=== PATIENT | male | born 1945 | race Caucasian/White ===

== ENCOUNTER 2023-04-04 12:10 | Outpatient (OUT) | payer MEDICARE, SELFPAY ==
[2023-04-04 13:52] LABS: Prostate Specific Antigen Dx <0.13 ng/mL (<=4.00)
== END 2023-04-04 12:11 | disposition home or self-care (01) ==
LOC: LAB 12:14
PROVIDERS: PCP Internal Medicine
DX: C61 Malignant neoplasm of prostate (principal)
CPT/HCPCS: 36415; 84153

== ENCOUNTER 2023-04-04 12:19 | Outpatient (OUT) | payer MEDICARE, SELFPAY ==
[2023-04-04 14:04] LABS: Estimated Average Glucose 180 mg/dL; Glycohemoglobin A1C 7.9 % (4.5-6.2)
== END 2023-04-04 12:20 | disposition home or self-care (01) ==
LOC: LAB 12:20
PROVIDERS: PCP Internal Medicine; Visit Provider Internal Medicine
DX: C61 Malignant neoplasm of prostate (principal); E11.65 Type 2 diabetes mellitus with hyperglycemia
CPT/HCPCS: 36415; 83036; 84153

== ENCOUNTER 2023-07-24 09:51 | Outpatient (OUT) | payer MEDICARE, SELFPAY ==
[2023-07-24 11:29] LABS: Estimated Average Glucose 186 mg/dL; Glycohemoglobin A1C 8.1 % (4.5-6.2)
== END 2023-07-24 09:52 | disposition home or self-care (01) ==
LOC: LAB 09:53
PROVIDERS: PCP Internal Medicine; Visit Provider Internal Medicine
DX: E11.65 Type 2 diabetes mellitus with hyperglycemia (principal)
CPT/HCPCS: 36415; 83036

== ENCOUNTER 2023-11-24 12:21 | Outpatient (OUT) | payer MEDICARE, SELFPAY ==
--- OUTSIDE RECORDS SUMMARY | 2023-11-24 12:26 | XMS_ITS | CCD ---
Author Name Unknown Address [address] [place] [address] Organization [facility] Care Team Providers Care Telemetry Technician Name Role Phone PHYSICIAN, DEFAULT Unavailable Unavailable PHYSICIAN, DEFAULT Unavailable NICO Dempsey Unavailable Unavailable Nico Lino DO Primary Care Provider Joseph Vasques Jr. Unavailable Nico Lino DO Primary Care Provider Joseph Vasques Jr. Unavailable NICO LINO Primary Care Physician [phone] LEIA LANDRUM Attending Unavailable Joseph Vasques Attending Unavailable LEIA LANDRUM Attending Unavailable Nico Lino Unavailable MAGO, DR MAS Admitting Unavailable MAGO, DR MAS Attending Unavailable MAGO, DR MAS Primary Care Unavailable MAGO, DR MAS Consulting Unavailable MAGO, DR MAS Admitting Unavailable MAGO, DR MAS Attending Unavailable MAGO, DR MAS Primary Care Unavailable MAGO, DR MAS Consulting Unavailable ADOLFO, DR VICKI Delcid Admitting Unavailable ADOLFO, DR VICKI Delcid Attending Unavailable MAGO, DR MAS Primary Care Unavailable ADOLFO, DR VICKI Delcid Consulting Unavailable MAGO, DR MAS Primary Care Unavailable ANA .CYNTHIA Admitting Unavailable ANA .CYNTHIA Attending Unavailable FAUSTINA .HALLE Consulting Unavailevangelina e ADOLFO, DR VICKI Delcid Admitting Unavailable ADOLFO, DR VICKI Delcid Attending Unavailable MAGO, DR MAS Primary Care Unavailable MAGO, DR MAS Admitting Unavailable MAGO, DR MAS Attending Unavailable MAGO, DR MAS Primary Care Unavailable MAGO, DR MAS Consulting Unavailable ADOLFO, Ronda MUÑOZ Attending Unavailable NIOC LINO Primary Care Unavailable Allergies Allergy Classification Reported Allergen(s) Allergy Type Date of Onset Reaction(s) Facility (1 source) Shellfish Containing Products Drug allergy (disorder) 9 [facility] Repository (2 sources) Seafood; Translations: [Seafood] Drug allergy Itching [facility] (1 source) Shrimp product; Translations: [Shrimp] Propensity to adverse reactions (disorder) [facility] Repository (1 source) No Known Medication Allergies; Translations: [No Known Medication Allergies] Propensity to adverse reactions (disorder) [facility] Repository (1 source) patient allergy list reviewed by nurse or physicia Propensity to adverse reactions 5 Comment:Done own[employer] Other Medications Current Medications Medication Drug Class(es) Dates Sig (Normalized) Sig (Original) calcium carbonate 1500 mg / cholecalciferol 200 unt oral tablet (1 source) Vitamin D Start: 06-16-2021 take 1 tablet by mouth once daily calcium (as carbonate)-vitami n D 600 mg-200 units oral tablet 1 tab(s), Oral, Daily, Prophylaxis Start Date: 06/16/21 Status: Ordered folic acid 1 mg oral tablet (4 sources) take 1 tablet by mouth every twenty-four hours Folic Acid 1 MG 1 tablet Orally Once a day for 90 days Active loperamide hydrochloride 2 mg oral tablet (5 sources) Opioid Agonist Start: 06-16-2021 take 1 tablet by mouth every four hours as needed Immodium A-D 2 mg Tab 2 mg = 1 tab(s), Oral, q4hr, PRN for loose stool Start Date: 06/16/21 Status: Ordered loperamide HCl ( IMODIUM ORAL) Take by mouth. 0 Active Comment on above: Take by mouth. tamsulosin hydrochloride 0.4 mg oral capsule (5 sources) alpha-Adrenergic Tatyana Start: 2 End: 3 take 1 capsule by mouth once daily tamsulosin 0.4 mg Cap 0.4 mg = 1 cap(s), Oral, Daily, # 30 cap(s), Refills(s) 11, Pharmacy: [id number], 173, cm, 11/02/21 11:02:00 EST, Height/Length Dosing, 99.9, kg, 05/03/22 10:56:00 EDT, Weight Dosing Start Date: 06/09/22 Status: Ordered Comment on above: Take 0.4 mg by mouth once daily. vitamin B12 (1 source) Vitamin B12 Start: 3 take 1 tablet under the tongue once daily Cyanocobalamin 1000 MCG 1 tablet under the tongue and allow to dissolve Sublingual Once a day for 90 days Jul, Active Completed/Discontinued Medications Medication Drug Class(es) Dates Sig (Normalized) Sig (Original) aspirin 81 mg delayed release oral tablet (9 sources) Platelet Aggregation Inhibitor, Nonsteroidal Anti-inflammatory Drug Start: 01-22-2021 aspirin, enteric coated (ASPIRIN, ENTERIC COATED) 81 mg EC tablet Take by mouth. 0 01/22/2021 Active Comment on above: Take by mouth. atenolol 50 mg oral tablet (9 sources) beta-Adrenergic Tatyana Start: 01-14-2021 atenolol (TENORMIN) 50 mg tablet Take 50 mg by mouth. 0 01/14/2021 Active Comment on above: Take 50 mg by mouth. atorvastatin 40 mg oral tablet (9 sources) HMG-CoA Reductase Inhibitor Start: 01-14-2021 atorvastatin (LIPITOR) 40 mg tablet Take 40 mg by mouth. 0 01/14/2021 Active Start: 01-14-2021 atorvastatin ( LIPITOR) 80 mg tablet Take 80 mg by mouth. 0 01/14/2021 Active Comment on above: Take 80 mg by mouth. Take 40 mg by mouth. B-12 - up to 1000 mcg (4 sources) Start: 11-29-2022 B-12 - up to 1000 mcg Nov, 1000 mcg Calcium (1 source) Phosphate Binder, Calcium End: 02-17-2022 CALCIUM ORAL Take by mouth. 0 02/17/2022 Discontinued (Discontinued by another Health Care Provider) Comment on above: Take by mouth. cholecalciferol, vitamin D3, (VITAMIN D3 ORAL) (1 source) End: 02-17-2022 cholecalciferol, vitamin D3, (VITAMIN D3 ORAL) Take by mouth. 0 02/17/2022 Discontinued (Discontinued by another Health Care Provider) Comment on above: Take by mouth. glimepiride 2 mg oral tablet (9 sources) Sulfonylurea Start: 03-01-2021 glimepiride (AMARYL) 2 mg tablet Start: 01-14-2021 take 1 tablet by ruth ann once daily glimepiride 1 mg Tab 1 mg = 1 tab(s), Oral, Daily, Refills(s) 0, Blood glucose Start Date: 01/14/21 Status: Ordered Glimepiride 4 MG 1 tablet Orally Once a day, taken 30 minutes prior to bkfst for 90 days Active Glimepiride 2 MG 1 1/2 tab, 30 minutes prior to bkfst Orally Once a day for 30 days Active Leuprolide (3 sources) Gonadotropin Releasing Hormone Receptor Agonist End: 08-17-2023 leuprolide acetate (LUPRON DEPOT INTRAMUSC.) Inject intramuscularly. 0 08/17/2023 Discontinued (Course of therapy completed) leuprolide aceta te (LUPRON DEPOT INTRAMUSC.) Inject intramuscularly. 0 Active Comment on above: Inject intramuscular ly. lisinopril 10 mg oral tablet (9 sources) Angiotensin Converting Enzyme Inhibitor Start: 01-14-2021 lisinopril (ZESTRIL, PRINIVIL) 10 mg tablet Take 10 mg by mouth. 0 01/14/2021 Active Comment on above: Take 10 mg by mouth. metFORMIN hydrochloride 1000 mg oral tablet (7 sources) Biguanide Start: 01-14-2021 End: 08-18-2022 metFORMIN (GLUCOPHAGE) 1,000 mg tablet twice daily. 0 02/06/2021 08/18/2022 Discontinued (Course of therapy completed) take 1 tablet by ruth ann th every twenty-four hours metFORMIN HCl 1000 MG 1 tablet with a meal Orally Once a day Active Comment on above: twice daily. sertraline 100 mg oral tablet (9 sources) Serotonin Reuptake Inhibitor Start: 01-14-2021 sertraline (ZOLOFT) 100 mg tablet Take 100 mg by mouth. 0 01/14/2021 Active Comment on above: Take 100 mg by mouth . Problems Active Problems Problem Classification Problem Date Documented Da te Episodic/Chronic Acute bronchitis (1 source) Acute bronchitis; Translations: [Acute bronchitis due to other specified organisms] Episodic Anxiety disorders (6 sources) Generalized anxiety disorder; Translations: [Generalized anxiety disorder] Chronic Appendicitis and other appendiceal conditions (1 source) Appendicitis 06-16-2021 Episodic Cancer of prostate (17 sources) Malignant tumor of prostate; Translations: [Malignant neoplasm of prostate] Onset: 02-17-2021 Chronic Coronary atherosclerosis and other heart disease (9 sources) Coronary occlusion; Translations: [Coronary arteriosclerosis] Onset: 06-24-2015 06-16-2021 Chronic Deficiency and other anemia (5 sources) 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; Translations: [Folate deficiency anemia, unspecified] Episodic Deficiency and other anemia (5 sources) Anemia; Translations: [Anemia, unspecified] Episodic Deficiency and other anemia (5 sources) Pernicious anemia; Translations: [Vitamin B12 deficiency anemia due to intrinsic factor deficiency] Episodic Deficiency and other anemia (2 sources) Vitamin B12 deficiency anemia due to intrinsic factor deficiency Episodic Deficiency and other anemia (1 source) Folate deficiency anemia, unspecified Episodic Diabetes mellitus with complications (16 sources) Hyperglycemia due to type 2 diabetes mellitus; Translations: [Type 2 diabetes mellitus with hyperglycemia] Onset: 11-29-2022 Chronic Diabetes mellitus without complication (1 source) Diabetes mellitus 06-16-2021 Chronic Disorders of lipid metabolism (13 sources) Pure hypercholesterolemia ; Translations: [Familial hypercholesterolemia ] Onset: 06-24-2015 Chronic E Codes: Cut/pierceb (1 source) Contact with other sharp object(s), not elsewhere classified, initial encounter; Translations: [[facility] OTH SHRP OB NOT ELSW CLASS INI] Onset: 01-09-2023 Episodic Essential hypertension (14 sources) Hypertensive disorder; Translations: [Essential hypertension] Onset: 06-24-2015 06-16-2021 Chronic Genitourinary symptoms and ill-defined conditions (1 source) Urge incontinence of urine 01-14-2021 Chronic Hyperplasia of prostate (8 sources) Benign prostatic hypertrophy with outflow obstruction; Translations: [Benign prostatic hyperplasia with lower urinary tract symptoms] Onset: 06-24-2015 Chronic Immunizations and screening for infectious disease (2 sources) Encounter for immunization; Translations: [Vaccination given] Onset: 01-09-2023 Episodic Open wounds of extremities (4 sources) Unspecified open wound of left middle finger without damage to nail, initial encounter; Translations: [UNS OPN WND LT MF W/O DMG NAIL INIT] Onset: 01-05-2023 Episodic Other aftercare (4 sources) H/O: high risk medication; Translations: [Other assisted (current) drug therapy] Episodic Other aftercare (1 source) Other manager long term care (current) drug therapy; Translations: [OTH SHANK SCOURER CURRENT DRUG THERAPY] Onset: 01-09-2023 Episodic Other aftercare (1 source) retirement (current) use of aspirin; Translations: [SHANK SCOURER CURRENT USE OF ASPIRIN] Onset: 01-09-2023 Episodic Other aftercare (1 source) 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; Translations: [SHANK SCOURER USE ORAL HYPOGLYCEMIC DX] Onset: 01-09-2023 Episodic Other aftercare (1 source) Long-term current use of drug therapy; Translations: [Other manager long term care (current) drug therapy] Episodic Other diseases of kidney and ureters (1 source) Urinary tract obstruction; Translations: [Other obstructive and reflux uropathy] Onset: 11-01-2022 Episodic Other diseases of veins and lymphatics (5 sources) Peripheral venous insufficiency; Translations: [Venous insufficiency (chronic) (peripheral)] Episodic Other diseases of veins and lymphatics (2 sources) Venous insufficiency (chronic) (peripheral) Episodic Other injuries and conditions due to external causes (1 source) History of fall; Translations: [History of falling] Episodic Other nutritional; endocrine; and metabolic disorders (2 sources) Body mass index 30+ - obesity; Translations: [Body mass index 30.0-30.9, adult] Onset: 06-24-2015 Chronic Other nutritional; endocrine; and metabolic disorders (1 source) Obesity; Translations: [Obesity, unspecified] Onset: 07-25-2022 Chronic Other nutritional; endocrine; and metabolic disorders (1 source) Simple obesity ; Translations: [Other obesity due to excess calories] Onset: 06-24-2015 Chronic Other upper respiratory disease (5 sources) Allergic rhinitis due to pollen; Translations: [Allergic rhinitis due to pollen] Chronic Spondylosis; intervertebral disc disorders; other back problems (1 source) Low back pain 06-16-2021 Episodic Substance-related disorders (1 source) Tobacco user; Translations: [Nicotine dependence, cigarettes, in remission] Chronic Unclassified (1 source) Exposure to acute respiratory syndrome coronavirus 2; Translations: [Contact with and (suspected) exposure to COVID-19] Past or Other Problems Problem Classification Problem Date Documented Da te Episodic/Chronic Deficiency and other anemia (1 source) Anemia, unspecified; Translations: [ANEMIA UNSPECIFIED] Onset: 08-02-2022 Episodic Malaise and fatigue (1 source) Malaise and fatigue; Translations: [Other malaise and fatigue] Onset: 06-24-2015 Episodic Other connective tissue disease (1 source) Pain in left foot; Translations: [Pain in left foot] Resolved: 07-19-2021 Episodic Other non-traumatic joint disorders (1 source) Arthralgia of the ankle and/or foot; Translations: [Pain in left ankle and joints of left foot] Resolved: 04-19-2022 Episodic Other screening for suspected conditions (not mental disorders or infectious disease) (1 source) Raised prostate specific antigen; Translations: [Elevated prostate specific antigen [PSA]] Resolved: 02-17-2021 Episodic Residual codes; unclassified (1 source) Requires influenza virus vaccination; Translations: [Need for prophylactic vaccination and inoculation, Influenza] Onset: 06-24-2015 Episodic Screening and history of mental health and substance abuse codes (2 sources) History of tobacco use; Translations: [Personal history of tobacco use, presenting hazards to health] Onset: 08-26-2016 Episodic Unclassified (1 source) Long-term current use of drug therapy; Translations: [Long-term (current) use of other medications] Onset: 09-29-2017 Viral infection (1 source) Herpes zoster with complication; Translations: [Zoster with other complications] Resolved: 04-06-2020 Episodic Results Test Name Value Interpretation Reference Range Facility OV 08-17-2023 CNOV Office Visit ([facility] ) SEGUN JOHNSON ([id number]) 1945 M Date Time Provider Department 08/17/23 10:15 AM Ronda BARTLETT During your visit today, we recorded the following information about you: Temperature Pulse Respiration Blood pressure 96.9 degrees 62/minute 16/minute 156/75 Weight 104.8 kg Angélica Acharya RN 08/17/2023 10:17 AM Signed AUA 7 MARGOT Israel G Phillip, MD 08/17/2023 10:17 AM Signed Radiation Oncology - Follow Up Note PATIENT NAME: Segun Johnson PATIENT DIAGNOSIS: Prostate adenocarcinoma, 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 RADIATION SUMMARY: Pelvis External Beam: 05/05/2021- 06/09/2021 Prostate brachytherapy: 07/07/21 AREA TREATED: Pelvis and Prostate DELIVERED DOSE: Pelvis/ Prostate 45 Gy in 25 fractions, 3 Arcs, IMRT, 10 MV with daily CBCT Prostate Brachytherapy boost: 100 Gy, Pd-103 INTERVAL HISTORY: Doing well denies any new problems. PSA HISTORY: PSA. (no units) Date Value 04/04/2023 <0.13 07/29/2022 <0.13 02/16/2022 0.13 07/31/2021 <0.05 ALLERGIES No Known Allergies leuprolide acetate (LUPRON DEPOT INTRAMUSC.) Inject intramuscularly. loperamide HCl (IMODIUM ORAL) Take by mouth. aspirin, enteric coated (ASPIRIN, ENTERIC COATED) 81 mg EC tablet Take by mouth. atenolol (TENORMIN) 50 mg tablet Take 50 mg by mouth. atorvastatin (LIPITOR) 40 mg tablet Take 40 mg by mouth. glimepiride (AMARYL) 2 mg tablet lisinopril (ZESTRIL, PRINIVIL) 10 mg tablet Take 10 mg by mouth. sertraline (ZOLOFT) 100 mg tablet Take 100 mg by mouth. tamsulosin (FLOMAX) 0.4 mg Take 0.4 mg by mouth once daily. REVIEW OF SYSTEMS: D/N = 4-6/2-3 Hematuria: none Dysuria: Yes Incontinence: occ post void drib Urgency: moderate Catheter use: No Medications to aid urination: n - Total AUA Score: 7 Bowel movement frequency: 1/day Bowel movement quality: normal Blood per rectum: none ADT: Lupron for approximately 12 months currently off PHYSICAL EXAM: BP 156/75 Pulse 62 Temp 36.1 ?C (96.9 ?F) Resp 16 Wt 104.8 kg (231 lb) SpO2 95% BMI 33.62 kg/m? KPS: 100 General appearance: Alert and oriented. No acute distress. Rectal exam def Extremities: No deformities, edema, skin discoloration, clubbing or cyanosis. Lymph Nodes: No cervical lymphadenopathy, No supraclavicular lymphadenopathy, No axillary lymphadenopathy. Skin: Skin color, texture, turgor normal, no suspicious rashes or lesions. ASSESSMENT/PLAN: Prostate adenocarcinoma, initial PSA 11.5, biopsy [place] score 4 + 3 = 7 (grade group 3), clinical stage T2b, N0, M0, stage IIC [T1-T2, N0, M0, PSA <20, GG 3] (AJCC 8th ed.), s/p Pelvic radiation and prostate brachytherapy boost. No evidence of recurrence or posttreatment problems. Plan to see patient back in 6 months with repeat PSA. Signed by: Ronda Bartlett MD cc: Nico Lino ([facility]) [address] [place] [address] Dr. Storey Portions of the above note extracted and edited from previous visit as well as active information included in the EMR. Allergies As of Date: 08/17/2023 (No Known Allergies) Date Reviewed: 08/17/2023 Reviewed by: Angélica Acharya RN - Fully Assessed Reason for Visit: Prostate Cancer [590] Primary Visit Diagnosis:Malignant neoplasm of prostate (HCC) [C61] Order(s):PSA (OUTSIDE) [[id number]] Order #: [id number] PSA/PROSTSPECAG DIAG [SQPSA] Order #: [id number] FUTURE Prescriptions as of 08/17/2023 - loperamide HCl (IMODIUM ORAL) Take by mouth. - aspirin, enteric coated (ASPIRIN, ENTERIC COATED) 81 mg EC tablet Take by mouth. - atenolol (TENORMIN) 50 mg tablet Take 50 mg by mouth. - atorvastatin (LIPITOR) 40 mg tablet Take 40 mg by mouth. - glimepiride (AMARYL) 2 mg tablet - lisinopril (ZESTRIL, PRINIVIL) 10 mg tablet Take 10 mg by mouth. - sertraline (ZOLOFT) 100 mg tablet Take 100 mg by mouth. Problem List As Of Date 08/17/2023 Noted Resolved Prostate cancer (HCC) [C61] 08/17/2022 Visit Notes: >> Angélica Acharya, RN Elsi Aug 17, 2023 10:07 AM Status: Signed AUA 7 Angélica Acharya RN Medications Discontinued During This Encounter Prescriptions - tamsulosin (FLOMAX) 0.4 mg (Discontinued) Take 0.4 mg by mouth once daily. - leuprolide acetate (LUPRON DEPOT INTRAMUSC.) (Discontinued) Inject intramuscularly. Disposition: Return in about 6 months (around 02/15/2024). Follow-up and Disposition History for Encounter Date Provider Department Center 08/17/2023 [id number] BARTLETT JOSE CALDWELLY Encounter Status:Closed by Ronda BARTLETT on 08/17/23 Normal [facility] GLYCOHEMOGLOBIN A1Con 2022 ADA RECOMMENDATION SEE BELOW Normal [facility] Comment on above: Result Comment: ADA RECOMMENDED LIMIT 4.0 - 6.0 ADA THERAPEUTIC TARGET < 7.0 ACTION SUGGESTED > 7.0 Performed By: #### A 1C #### [facility] [address] [place] [address] Dr. Radha Brown Glucose [Mass/Vol] 186 mg/dL Normal [facility] Comment on above: Performed By: #### A 1C #### [facility] [address] [address] [address] Radha Brown HbA1c (Bld) [Mass fraction] 8.1 % Critically high 4.5-6.2 [facility] Comment on above: Performed By: #### A 1C #### [facility] [address] [address] [address] Radha Brown Screenson 11-02-2022 Screens [id number] D:127 Normal [facility] Ambulatory Visit Summaryon 0 11-01-2022 Ambulatory Visit Summary SEGUN JOHNSON :1945 Visit Date:11/01/2022 Ambulatory Visit Instructions Your Diagnosis Prostate cancer BPH with obstruction/lower urinary tract symptoms Other obstructive and reflux uropathy Tests Performed Urnls Dip Stick Auto w/o Microscopy POC [id number] Your Care Team Attending Physician - LEIA LANDRUM PA-C Primary Care Physician - NICO LINO DO This Is Your Medications List tamsulosin (tamsulosin 0.4 mg Cap) Contact prescribing physician if questions or concerns aspirin (aspirin 81 mg Oral EC Tab) atenolol (atenolol 50 mg Tab) atorvastatin (atorvastatin 80 mg Tab) calcium-vitamin D (calcium (as carbonate)-vitamin D 600 mg-200 units oral tablet) glimepiride (glimepiride 1 mg Tab) lisinopril (lisinopril 10 mg Tab) loperamide (Immodium A-D 2 mg Tab) metformin (metformin 1000 mg oral tablet) sertraline (sertraline 100 mg Tab) [Image Removed: STOP]Stop taking these medications leuprolide (Lupron Depot 45 mg/6 months intramuscular injection, extended release) Procedures Performed Brachytherapy implant (07/07/2021), Biopsy of prostate (01/29/2021), Colonoscopy (2017), Angioplasty, Appendectomy. Discharge Vitals Heart Rate (Peripheral) 68 Respiratory Rate 16 Blood Pressure 137/80 Height 175 cm Height 69 in Weight 100 kg Weight 220 lb BMI 32.65 What to do next Scheduled Follow-Up Appointments Monday 11:00 AM EDT With: LEIA LANDRUM PA-C Where: [facility] Patient Educationon 11-01-19 Patient Education Urology Benign Prostatic Hyperplasia Benign prostatic hyperplasia (BPH) is an enlarged prostate gland that is caused by the normal aging process and not by cancer. The prostate is a walnut-sized gland that is involved in the production of semen. It is located in front of the rectum and below the bladder. The bladder stores urine and the urethra is the tube that carries the urine out of the body. The prostate may get bigger as a man gets older. An enlarged prostate can press on the urethra. This can make it harder to pass urine. The build-up of urine in the bladder can cause infection. Back pressure and infection may progress to bladder damage and kidney (renal) failure. What are the causes? This condition is part of a normal aging process. However, not all men develop problems from this condition. If the prostate enlarges away from the urethra, urine flow will not be blocked. If it enlarges toward the urethra and compresses it, there will be problems passing urine. What increases the risk? This condition is more likely to develop in men over the age of 50 years. What are the signs or symptoms? Symptoms of this condition include: ? Getting up often during the night to urinate. ? Needing to urinate frequently during the day. ? Difficulty starting urine flow. ? Decrease in size and strength of your urine stream. ? Leaking (dribbling) after urinating. ? Inability to pass urine. This needs immediate treatment. ? Inability to completely empty your bladder. ? Pain when you pass urine. This is more common if there is also an infection. ? Urinary tract infection (UTI). How is this diagnosed? This condition is diagnosed based on your medical history, a physical exam, and your symptoms. Tests will also be done, such as: ? A post-void bladder scan. This measures any amount of urine that may remain in your bladder after you finish urinating. ? A digital rectal exam. In a rectal exam, your health care provider checks your prostate by putting a lubricated, gloved finger into your rectum to feel the back of your prostate gland. This exam detects the size of your gland and any abnormal lumps or growths. ? An exam of your urine (urinalysis). ? A prostate specific antigen (PSA) screening. This is a blood test used to screen for prostate cancer. ? An ultrasound. This test uses sound waves to electronically produce a picture of your prostate gland. Your health care provider may refer you to a specialist in kidney and prostate diseases (urologist). How is this treated? Once symptoms begin, your health care provider will monitor your condition (active surveillance or watchful waiting). Treatment for this condition will depend on the severity of your condition. Treatment may include: ? Observation and yearly exams. This may be the only treatment needed if your condition and symptoms are mild. ? Medicines to relieve your symptoms, including: ? Medicines to shrink the prostate. ? Medicines to relax the muscle of the prostate. ? Surgery in severe cases. Surgery may include: ? Prostatectomy. In this procedure, the prostate tissue is removed completely through an open incision or with a laparoscope or robotics. ? Transurethral resection of the prostate (TURP). In this procedure, a tool is inserted through the opening at the tip of the penis (urethra). It is used to cut away tissue of the inner core of the prostate. The pieces are removed through the same opening of the penis. This removes the blockage. ? Transurethral incision (TUIP). In this procedure, small cuts are made in the prostate. This lessens the prostate's pressure on the urethra. ? Transurethral microwave thermotherapy (TUMT). This procedure uses microwaves to create heat. The heat destroys and removes a small amount of prostate tissue. ? Transurethral needle ablation (TUNA). This procedure uses radio frequencies to destroy and remove a small amount of prostate tissue. ? Interstitial laser coagulation (ILC). This procedure uses a laser to destroy and remove a small amount of prostate tissue. ? Transurethral electrovaporization (TUVP). This procedure uses electrodes to destroy and remove a small amount of prostate tissue. ? Prostatic urethral lift. This procedure inserts an implant to push the lobes of the prostate away from the urethra. Follow these instructions at home: ? Take dcty-iha-ymezhbb and prescription medicines only as told by your health care provider. ? Monitor your symptoms for any changes. Contact your health care provider with any changes. ? Avoid drinking large amounts of liquid before going to bed or out in public. ? Avoid or reduce how much caffeine or alcohol you drink. ? Give yourself time when you urinate. ? Keep all follow-up visits as told by your health care provider. This is important. Contact a health care provider if: ? You have unexplained back pain. ? Your symptoms do not get better with treatment. ? You d (more content not included)... Normal [facility] Urology Office/Clinic Noteon 11-01-2022 Urology Office/Clinic Note Chief Complaint 6m HPI Staff DLS pt here today for Lupron Injection #4(has been approved through insurance) due to Prostate Cancer. S/P Brachytherapy 06/2021 + EBRT 04/2021-05/2021. Last Lupron 05/03/22. PSA done 07/29/22- <0.[address] Bartlett on 08/25/22. Follows up with him every 1yr with PSA. Additional DX: BPH & Nocturia. *Tamsulosin 0.4mg QD therapy. Occasional dribbling on the way to bathroom if he waits too long. Does not wear a pad. Denies all other urinary complaints at this time. History of Present Illness staff HPI reviewed and agree. Review of Systems PHQ Score Initial Depression Screen Score: 0 no fever, chills, malaise, myalgia. no rash/lesions. no chest pain, palpitations, or SOB. no abdominal pain, nausea, vomiting. no unilateral calf swelling, redness, pain Physical Exam Vitals & Measurements HR: 68(Peripheral) RR: 16 BP: 137/80 HT: 69 in HT: 175 cm WT: 100 kg WT: 220 lb BMI: 32.65 General: nontoxic, NAD Mouth: moist mucosa Lungs: normal respiratory effort Cardio: regular rate, good distal perfusion Abdomen: nondistended, no suprapubic distention or tenderness, no CVA tenderness Neurologic: Grossly normal Skin: No rashes or suspicious lesions Assessment/Plan 1. Prostate cancer (C61: Malignant neoplasm of prostate) initial PSA 11.5, G6(3+3)2x, G7(3+4)x3, G7(4+3) = Grade Group 3, clinical stage T2b N0 M0 S/P Brachytherapy 06/2021 + EBRT 04/2021-05/2021. PSA 07/29/22- <0.13 02/16/22 - 0.13 07/31/21- <0.05 Had extensive discussion w pt regarding NCCN guidelines regarding radiation + ADT. As his prostate cancer is intermediate Unfavorable Intermediate only 4-6mos ADT recommended. Pt has already had 18mos tx. Discussed pros/cons of stopping ADT at this time. Pt amenable to dc ADT. Will not receive Lupron injection today. Pt will repeat PSA in January/February (this will be 6 mos from his last draw w Dr Bartlett) will call him w results. He will then see Dr Bartlett in Aug and see our office again next summer so that he's on a 6mo alternating schedule w us and Dr Bartlett. pt pleased w this plan. 2. BPH with obstruction/lower urinary tract symptoms (N40.1: Benign prostatic hyperplasia with lower urinary tract symptoms) IPSS(8) QoL(1) UA today is clear/neg for any blood or infections. will continue Flomax 0.4mg qd therapy since this is working well for him. Overall pt is voiding well, minimal leakage does not have to wear depends leakage only happens when he holds his urine too long but overall pt is doing well. All questions and concerns were discussed. Pt acknowledge and understands. Pt will call our office with any changes in urinary symptoms. Other obstructive and reflux uropathy (N13.8: Other obstructive and reflux uropathy) Follow-up With When Contact Information DIALLO SHEEHAN, LEIA Ortega, URL In 18 months [address] [facility] [place] [address] Additional Instructions: PSA Patient Education Benign Prostatic Hyperplasia I, Brenda Byrd, personally scribed for Leia Landrum PA-C on 11/01/2022 12:17:23. . Documentation recorded by the scribjg Byrd accurately reflects the services(s) I performed and decisions made by me. Authenticated by Leia Landrum PA-C on 11/01/2022 12:38:00. Problem List/Past Medical History Ongoing BPH with obstruction/lower urinary tract symptoms Prostate cancer Urge incontinence Historical No qualifying data Procedure/Surgical History Brachytherapy implant (07/07/2021), Biopsy of prostate (01/29/2021), Colonoscopy (2018), Angioplasty, Appendectomy. Medications aspirin 81 mg Oral EC Tab, 81 mg= 1 tab(s), Oral, Daily atenolol 50 mg Tab, 50 mg= 1 tab(s), Oral, Daily atorvastatin 80 mg Tab, 80 mg= 1 tab(s), Oral, Daily calcium (as carbonate)-vitamin D 600 mg-200 units oral tablet, 1 tab(s), Oral, Daily glimepiride 1 mg Tab, 1 mg= 1 tab(s), Oral, Daily Immodium A-D 2 mg Tab, 2 mg= 1 tab(s), Oral, q4hr, PRN lisinopril 10 mg Tab, 10 mg= 1 tab(s), Oral, Daily Lupron Depot 45 mg/6 months intramuscular injection, extended release, 45 mg, IntraMuscular, q6mo metformin 1000 mg oral tablet, 1000 mg= 1 tab(s), Oral, BID sertraline 100 mg Tab, 100 mg= 1 tab(s), Oral, Daily tamsulosin 0.4 mg Cap, 0.4 mg= 1 cap(s), Oral, Daily, 11 refills Allergies Seafood (Itching) Social History Alcohol Current, 1-2 times per year, 06/16/2021 Substance Abuse - Denies Substance Abuse, 06/16/2021 Tobacco - Denies Tobacco Use, 06/16/2021 Former smoker, quit more than 30 days ago Tobacco Use:. Cigarettes, 11/01/2022 Family History Heart disease: Father. Immunizations Vaccine Date Status influenza virus vaccine, inactivated 07/25/2022 Recorded SARS-CoV-2 (COVID-19) [id number] 07/23/2022 Recorded SARSCoV2 mRNA(walcloygt-kbvn-kfy ros) vac 05/05/2022 Recorded influenza virus vaccine, inactivated 06/10/2021 Recorded SARS-CoV-2 (COVID-19) [id number] (more content not included)... Normal [facility] Comment on above: Result Comment: Elec tronically Signed By: LEIA LANDRUM PA-C\.br\Date and Time Signed: 11/01/22 12:38 EST\.br\Electronically Co-Signed By: Brenda Byrd\.br\Date and Time Co-Signed: 11/01/22 12:17 EST Consultation Noteon 08-28-20 22 Consultation Note [id number] D:127 Normal [facility] CBC AUTO DIFFon 07-29-2022 BASO # 0.1 103/ul Normal 0.0-0.1 [facility] Comment on above: Performed By: #### C BC #### [facility] [address] [address] [address] Radha Brown Basophils/100 WBC (Bld) 0.9 % Normal 0.2-2.[address] [facility] Comment on above: Performed By: #### C BC #### [facility] [address] [place] [address] Dr. Radha Brown EO # 0.5 103/ul Normal 0.0-0.7 [facility] Comment on above: Performed By: #### C BC #### [facility] [address] [place] [address] Dr. Radha Brown Eosinophils/100 WBC (Bld) 5.5 % Normal 0.9-7.0 [facility] Comment on above: Performed By: #### C BC #### [facility] [address] [place] [address] Dr. Radha Brown Erythrocyte distribution width (RBC) [Ratio] 15.0 % Normal 11.0-15.0 [facility] Comment on above: Performed By: #### C BC #### [facility] [address] [place] [address] Dr. Radha Brown Hematocrit (Bld) [Volume fraction] 35.6 % Critically low 42.0-54.0 [facility] Comment on above: Performed By: #### C BC #### [facility] [address] [place] [address] Dr. Radha Brown Hemoglobin (Bld) [Mass/Vol] 11.8 g/dL Critically low 14.0-18.0 [facility] Comment on above: Performed By: #### C BC #### [facility] [address] [place] [address] Dr. Radha Brown IG # 0.05 10e3/ul Critically high 0.00-0.03 [facility] Comment on above: Performed By: #### C BC #### [facility] [address] [place] [address] Dr. Radha Brown IG % 0.5 % Normal 0.0-0.5 [facility] Comment on above: Performed By: #### C BC #### [facility] [address] [place] [address] Dr. Radha Brown LYMPH # 1.8 103/ul Normal 1.2-3.[address] [facility] Comment on above: Performed By: #### C BC #### [facility] [address] [place] [address] Dr. Radha Brown Lymphocytes/100 WBC (Bld) 19.3 % Critically low 20.5-60.0 [facility] Comment on above: Performed By: #### C BC #### [facility] [address] [place] [address] Dr. Radha Brown MANUAL DIFF REQ NO Normal [facility] Comment on above: Performed By: #### C BC #### [facility] [address] [place] [address] Dr. Radha Brown MCH (RBC) [Entitic mass] 29.2 pg Normal 25.9-34.0 [facility] Comment on above: Performed By: #### C BC #### [facility] [address] [place] [address] Dr. Radha Brown MCHC (RBC) [Mass/Vol] 33.1 g/dL Normal 29.9-35.[address] [facility] Comment on above: Performed By: #### C BC #### [facility] [address] [place] [address] Dr. Radha Brown MCV (RBC) [Entitic vol] 88.1 fL Normal 80.0-94.0 [facility] Comment on above: Performed By: #### C BC #### [facility] [address] [place] [address] Dr. Radha Brown MONO # 0.6 103/ul Normal 0.3-0.8 [facility] Comment on above: Performed By: #### C BC #### [facility] [address] [place] [address] Dr. Radha Brown Monocytes/100 WBC (Bld) 6.4 % Normal 1.7-12.0 [facility] Comment on above: Performed By: #### C BC #### [facility] [address] [place] [address] Dr. Radha Brown NEUT # 6.4 103/ul Normal 1.4-6.[address] [facility] Comment on above: Performed By: #### C BC #### [facility] [address] [place] [address] Dr. Radha Brown Neutrophils/100 WBC (Bld) 67.4 % Normal 43.0-75.0 [facility] Comment on above: Performed By: #### C BC #### [facility] [address] [address] [address] Radha Brown Platelet mean volume (Bld) [Entitic vol] 9.2 fL Critically low 9.5-13.5 [facility] Comment on above: Performed By: #### C BC #### [facility] [address] [place] [address] Dr. Radha Brown PLT 232 103/ul Normal 150-450 [facility] Comment on above: Performed By: #### C BC #### [facility] [address] [address] [address] Radha Brown RBC 4.04 106/ul Critically low 4.70-6.10 [facility] Comment on above: Performed By: #### C BC #### [facility] [address] [address] [address] Radha Brown WBC 9.5 103/ul Normal 4.0-11.0 [facility] Comment on above: Performed By: #### C BC #### [facility] [address] [place] [address] Dr. Radha Brown FERRITINon 07-29-2022 Ferritin [Mass/Vol] 164.0 ng/mL Normal 26.0-388.0 [facility] Comment on above: Performed By: #### P SAD, FOL, FERR, FETIBC #### [facility] [address] [place] [address] Dr. Radha Brown FOLATEon 07-29-2022 FOLATE 7.60 ng/mL Critically low 8.60-58.90 [facility] Comment on above: Performed By: #### P SAD, FOL, FERR, FETIBC #### [facility] [address] [place] [address] Dr. Radha Brown GLYCOHEMOGLOBIN A1Con 2021 ADA RECOMMENDATION SEE BELOW Normal [facility] Comment on above: Result Comment: ADA RECOMMENDED LIMIT 4.0 - 6.0 ADA THERAPEUTIC TARGET < 7.0 ACTION SUGGESTED > 7.0 Performed By: #### A 1C #### [facility] [address] [place] [address] Dr. Radha Brown Glucose [Mass/Vol] 134 mg/dL Normal [facility] Comment on above: Performed By: #### A 1C #### [facility] [address] [address] [address] Radha Brown HbA1c (Bld) [Mass fraction] 6.3 % Critically high 4.5-6.2 [facility] Comment on above: Performed By: #### A 1C #### [facility] [address] [address] [address] Radha Brown IRON AND TIBCon 07-29-2022 % SATURATION 22.1 % Normal [facility] Comment on above: Performed By: #### P SAD, FOL, FERR, FETIBC #### [facility] [address] [address] [address] Radha Brown Iron [Mass/Vol] 78.0 ug/dL Normal 65.0-175.0 [facility] Comment on above: Performed By: #### P SAD, FOL, FERR, FETIBC #### [facility] [address] [address] [address] Radha Brown TIBC DIRECT 353.0 ug/dL Normal 250.0-450.0 [facility] Comment on above: Performed By: #### P SAD, FOL, FERR, FETIBC #### [facility] [address] [address] [address] Radha Brown LIPID PROFILEon 07-29-2022 CHOL-HDL RATIO NORM SEE BELOW Normal [facility] Comment on above: Result Comment: 3.3 - 4.4 LOW RISK 4.4 - 7.1 AVERAGE RISK 7.1 - 11.0 MODERATE RISK >11.0 HIGH RISK Performed By: #### P SAD, FOL, FERR, FETIBC #### [facility] [address] [address] [address] Radha Brown Cholesterol [Mass/Vol] 137 mg/dL Normal <=200 [facility] Comment on above: Performed By: #### P SAD, FOL, FERR, FETIBC #### [facility] [address] [address] [address] Radha Brown Cholesterol in HDL [Mass/Vol] 37 mg/dL Critically low 40-60 [facility] Comment on above: Performed By: #### P SAD, FOL, FERR, FETIBC #### [facility] [address] [address] [address] Radha Brown Cholesterol in LDL [Mass/Vol] 67.0 mg/dL Normal [facility] Comment on above: Performed By: #### P SAD, FOL, FERR, FETIBC #### [facility] [address] [address] [address] Radha Brown Cholesterol.total/Ch olesterol in HDL [Mass ratio] 3.7 {ratio} Normal [facility] Comment on above: Performed By: #### P SAD, FOL, FERR, FETIBC #### [facility] [address] [place] [address] Dr. Radha Brown HDL NORMAL > or = 60 mg/dl - LO W CARDIOVASCULAR RISK <40 mg/dl - HIGH CARDIOVASCULAR RISK Normal [facility] Comment on above: Performed By: #### P SAD, FOL, FERR, FETIBC #### [facility] [address] [address] [address] Radha Brown LDL CALC NORMAL SEE BELOW Normal [facility] Comment on above: Result Comment: <100 mg/dl OPTIMAL 100 - 129 mg/dl NEAR OR ABOVE OPTIMAL 130 - 159 mg/dl BORDERLINE HIGH 160 - 189 mg/dl HIGH >190 mg/dl VERY HIGH Performed By: #### P SAD, FOL, FERR, FETIBC #### [facility] [address] [address] [address] Radha Brown Triglyceride [Mass/Vol] 165 mg/dL Critically high <=[address] [facility] Comment on above: Performed By: #### P SAD, FOL, FERR, FETIBC #### [facility] [address] [place] [address] Dr. Radha Brown VLDL CALC 33.0 mg/dL Normal [facility] Comment on above: Performed By: #### P SAD, FOL, FERR, FETIBC #### [facility] [address] [address] [address] Radha Brown MICROALBUMIN, RAND URon 11-1 1-2022 mALB <1.3 Normal <=30.0 [facility] Comment on above: Performed By: #### M ALBR #### [facility] [address] [address] [address] Radha Brown PROF CHEM 8 (BAS METB)on Anion gap [Moles/Vol] 9.1 mmol/L Normal [facility] Comment on above: Performed By: #### P SAD, FOL, FERR, FETIBC #### [facility] [address] [address] [address] Radha Brown Calcium [Mass/Vol] 8.6 mg/dL Normal 8.5-10.[address] [facility] Comment on above: Performed By: #### P SAD, FOL, FERR, FETIBC #### [facility] [address] [place] [address] Dr. Radha Brown Chloride [Moles/Vol] 106 mmol/L Normal 98-107 [facility] Comment on above: Performed By: #### P SAD, FOL, FERR, FETIBC #### [facility] [address] [address] [address] Radha Brown CO2 [Moles/Vol] 27.1 mmol/L Normal 21.0-32.0 [facility] Comment on above: Performed By: #### P SAD, FOL, FERR, FETIBC #### [facility] [address] [address] [address] Radha Brown Creatinine [Mass/Vol] 1.19 mg/dL Normal 0.70-1.30 [facility] Comment on above: Performed By: #### P SAD, FOL, FERR, FETIBC #### [facility] [address] [place] [address] Dr. Radha Brown EGFR-AF ICELANDIC >60 Normal >=60 [facility] Comment on above: Performed By: #### P SAD, FOL, FERR, FETIBC #### [facility] [address] [address] [address] Radha Brown EGFR-NON AF ICELANDIC 59 mL/min/1.73m2 Critically low >=60 [facility] Comment on above: Performed By: #### P SAD, FOL, FERR, FETIBC #### [facility] [address] [address] [address] Radha Brown Glucose [Mass/Vol] 137 mg/dL Critically high 74-106 [facility] Comment on above: Performed By: #### P SAD, FOL, FERR, FETIBC #### [facility] [address] [address] [address] Radha Brown Potassium [Moles/Vol] 4.2 mmol/L Normal 3.5-5.1 [facility] Comment on above: Performed By: #### P SAD, FOL, FERR, FETIBC #### [facility] [address] [address] [address] Radha Brown Sodium [Moles/Vol] 138 mmol/L Normal 136-145 [facility] Comment on above: Performed By: #### P SAD, FOL, FERR, FETIBC #### [facility] [address] [address] [address] Radha Brown Urea nitrogen [Mass/Vol] 22.0 mg/dL Critically high 7.0-18.0 [facility] Comment on above: Performed By: #### P SAD, FOL, FERR, FETIBC #### [facility] [address] [address] [address] Radha Brown Urea nitrogen/Creatinine [Mass ratio] 18.5 mg/mg Normal [facility] Comment on above: Performed By: #### P SAD, FOL, FERR, FETIBC #### [facility] [address] [address] [address] Radha Brown Ambulatory Visit Summaryon 0 05-03-2022 Ambulatory Visit Summary ALEXSEGUN :1945 Visit Date:05/03/2022 Ambulatory Visit Instructions Your Diagnosis Prostate cancer BPH with obstruction/lower urinary tract symptoms Nocturia Tests Performed Urnls Dip Stick Auto w/o Microscopy POC [id number] Your Care Team Attending Physician - Layo Bae MD, Joseph Henry Primary Care Physician - NICO LINO DO This Is Your Medications List bicalutamide (Casodex 50 mg Tab) leuprolide (Lupron Depot 45 mg/6 months intramuscular injection, extended release) tamsulosin (tamsulosin 0.4 mg Cap) Contact prescribing physician if questions or concerns aspirin (aspirin 81 mg Oral EC Tab) atenolol (atenolol 50 mg Tab) atorvastatin (atorvastatin 80 mg Tab) calcium-vitamin D (calcium (as carbonate)-vitamin D 600 mg-200 units oral tablet) glimepiride (glimepiride 1 mg Tab) lisinopril (lisinopril 10 mg Tab) loperamide (Immodium A-D 2 mg Tab) metformin (metformin 1000 mg oral tablet) sertraline (sertraline 100 mg Tab) Procedures Performed Brachytherapy implant (07/07/2021), Biopsy of prostate (01/29/2021), Colonoscopy (2017), Angioplasty, Appendectomy. Discharge Vitals Heart Rate (Peripheral) 68 Blood Pressure 124/80 Weight 99.9 kg Weight 99.9 kg What to do next Scheduled Follow-Up Appointments Monday 10:15 AM EST With: Joseph Vasques Jr., MD Where: [facility] Patient Educationon 05-03-20 Patient Education Nutrition Calorie Counting for Weight Loss Calories are units of energy. Your body needs a certain amount of calories from food to keep you going throughout the day. When you eat more calories than your body needs, your body stores the extra calories as fat. When you eat fewer calories than your body needs, your body amaya fat to get the energy it needs. Calorie counting means keeping track of how many calories you eat and drink each day. Calorie counting can be helpful if you need to lose weight. If you make sure to eat fewer calories than your body needs, you should lose weight. Ask your health care provider what a healthy weight is for you. For calorie counting to work, you will need to eat the right number of calories in a day in order to lose a healthy amount of weight per week. A dietitian can help you determine how many calories you need in a day and will give you suggestions on how to reach your calorie goal. ? A healthy amount of weight to lose per week is usually 1?2 lb (0.5?0.9 kg). This usually means that your daily calorie intake should be reduced by 500?750 calories. ? Eating 1,200 ? 1,500 calories per day can help most women lose weight. ? Eating 1,500 ? 1,800 calories per day can help most men lose weight. What is my plan? My goal is to have calories per day. If I have this many calories per day, I should lose around pounds per week. What do I need to know about calorie counting? In order to meet your daily calorie goal, you will need to: ? Find out how many calories are in each food you would like to eat. Try to do this before you eat. ? Decide how much of the food you plan to eat. ? Write down what you ate and how many calories it had. Doing this is called keeping a food log. To successfully lose weight, it is important to balance calorie counting with a healthy lifestyle that includes regular activity. Aim for 150 minutes of moderate exercise (such as walking) or 75 minutes of vigorous exercise (such as running) each week. Where do I find calorie information? The number of calories in a food can be found on a Nutrition Facts label. If a food does not have a Nutrition Facts label, try to look up the calories online or ask your dietitian for help. Remember that calories are listed per serving. If you choose to have more than one serving of a food, you will have to multiply the calories per serving by the amount of servings you plan to eat. For example, the label on a package of bread might say that a serving size is 1 slice and that there are 90 calories in a serving. If you eat 1 slice, you will have eaten 90 calories. If you eat 2 slices, you will have eaten 180 calories. How do I keep a food log? Immediately after each meal, record the following information in your food log: ? What you ate. Don't forget to include toppings, sauces, and other extras on the food. ? How much you ate. This can be measured in cups, ounces, or number of items. ? How many calories each food and drink had. ? The total number of calories in the meal. Keep your food log near you, such as in a small notebook in your pocket, or use a mobile faizan or website. Some programs will calculate calories for you and show you how many calories you have left for the day to meet your goal. What are some calorie counting tips? ? Use your calories on foods and drinks that will fill you up and not leave you hungry: ? Some examples of foods that fill you up are nuts and nut butters, vegetables, lean proteins, and high-fiber foods like whole grains. High-fiber foods are foods with more than 5 g fiber per serving. ? Drinks such as sodas, specialty coffee drinks, alcohol, and juices have a lot of calories, yet do not fill you up. ? Eat nutritious foods and avoid empty calories. Empty calories are calories you get from foods or beverages that do not have many vitamins or protein, such as candy, sweets, and soda. It is better to have a nutritious high-calorie food (such as an avocado) than a food with few nutrients (such as a bag of chips). ? Know how many calories are in the foods you eat most often. This will help you calculate calorie counts faster. ? Pay attention to calories in drinks. Low-calorie drinks include water and unsweetened drinks. ? Pay attention to nutrition labels for low fat or fat free foods. These foods sometimes have the same amount of calories or more calories than the full fat versions. They also often have added sugar, starch, or salt, to make up for flavor that was removed with the fat. ? Find a way of tracking calories that works for you. Get creative. Try different apps or programs if writing down calories does not work for you. What are some portion control tips? ? Know how many calories are in a serving. This will help you know how many servings of a certain food you can have. ? Use a measuring cup to measure serving sizes. You could (more content not included)... Normal [facility] Urology Office/Clinic Noteon 05-03-2022 Urology Office/Clinic Note Chief Complaint Patient in office for f/u to PSA w/Lupron injection Patient is 76-year-old male with Scandinavia score 4+3 equal 7 stage T2-3 N0 M0 status post pelvic radiation with brachytherapy boost on 07/07/2021. He is here today for Lupron instillation. HPI Staff Patient in office for 6 month f/u. Previous PSA was done on 07/31/21 w/a result of 0.05. Most recent PSA was done on 02/16/22 w/a result of 0.13. Patient is S/P TRUS w/Bx done one 01/28/21. Patient in office to obtain Lupron injection today. Patient states he is doing well, denies any urinary issues or concerns at this time. Dysuria: denies Incomplete bladder emptying: denies Hematuria: denies Frequency: denies Urgency: denies Nocturia: 3-4 x a night Stream: steady Leaking: denies Post void dripping: denies Wearing pads/ Depends: denies Urge incontinence: denies Stress incontinence: denies Incontinence without Sensory Awareness: denies Abdominal pain: denies Flank pain: denies Sexual complaints: _ History of Present Illness Tests Reviewed: Reviewed UA, and PSA. I have reviewed and verified the staff HPI to be accurate for this encounter. I have reviewed the previous health record information and history for this patient from Dr. Vasques There have been no associated fever, chills, flank pain, or blood in the urine. Denies any urinary infections since last encounter. Review of Systems ROS - Provider Constitutional: denies weight loss, denies hot flashes. Eyes: mild eye problems. Wears Glasses Gastrointestinal: denies nausea, denies vomiting. Cardiovascular: denies chest pain or angina. Integumentary: no dryness Musculoskeletal: denies musculoskeletal symptoms. ENMT: denies otolaryngeal symptoms. Respiratory: no shortness of breath. Heme/Lymph: denies easy bleeding tendency, denies easy bruising tendency. Psychiatric: no confusion, no anxiety. Genitourinary: denies dysuria, denies hematuria, denies discharge, denies urinary frequency, denies urinary hesitancy, moderate nocturia, denies incontinence, denies genital sores, denies decreased libido, and denies erectile dysfunction. Physical Exam Vitals & Measurements HR: 68(Peripheral) BP: 124/80 WT: 99.9 kg WT: 99.9 kg General Appearance: alert, no distress, well nourished, well developed male Flank Pain: none. Bladder: nonpalpable. Assessment/Plan Lupron instillation today was uneventful. Patient seems to be doing quite well with androgen ablation therapy. He continues to follow with radiation therapy. Most recent PSA we have for review is from 02/16/2022 and that result was 0.13 ng/mL. The plan is to continue with androgen ablation therapy and continue follow-up with radiation oncology. I next scheduled visit with the patient will be in 6 months with his next Lupron instillation. He has been instructed to contact the office if he has any change in his voiding pattern or if he has any other questions. 1. Prostate cancer (C61: Malignant neoplasm of prostate) Previous PSA was done on 07/31/21 w/a result of 0.05. Most recent PSA was done on 02/16/22 w/a result of 0.13. Patient is S/P TRUS w/Bx done one 01/28/21. Patient in office to obtain Lupron injection today in Rt Glute. Casodex 50mg qd therapy. Pt will continue medication. Will f/u in 6 months with PSA/Lupron Ordered: leuprolide, 45 mg, IntraMuscular, Once, Stop date 05/03/22 11:29:00 EDT, Routine, Start date 05/03/22 11:29:00 EDT, 05/03/22 11:29:00 EDT PSA Total Urnls Dip Stick Auto w/o Microscopy POC 57696 2. BPH with obstruction/lower urinary tract symptoms (N40.1: Benign prostatic hyperplasia with lower urinary tract symptoms) Good stream, Tamsulosin 0.4mg qd therapy. Patient to continue medication. Ordered: PSA Total Urnls Dip Stick Auto w/o Microscopy POC 71144 3. Nocturia (R35.1: Nocturia) Moderate 3 times per night Ordered: PSA Total I have reviewed the previous health history and record for this patient with Dr. Reynolds. Will f/u in 6 months with PSA/Lupron Follow-up With When Contact Information Layo Bae MD, Joseph Henry, URO In 6 months [facility] [address], [place] [address]- Additional Instructions: f/u in 6 months with PSA and Lupron Patient Education Calorie Counting for Weight Loss Prostate Cancer IRylie, personally scribed for Dr. Vasques on 05/03/2022 11:28:58. . Documentation recorded by the scribe, Shelly Garcia, accurately reflects the services(s) I performed and decisions made by me. Authenticated by Dr. Vasques on 05/03/2022 11:37:06. Problem List/Past Medical History Ongoing BPH with obstruction/lower urinary tract symptoms Prostate cancer Urge incontinence Historical No qualifying data Procedure/Surgical History Brachytherapy implant (07/07/2021), Biopsy of prostate (01/29/2021), Colonoscopy (2017), Angioplasty, Appendectomy. Medications aspirin 81 mg Oral EC T (more content not included)... Normal [facility] Comment on above: Result Comment: Elec tronically Signed By: Layo Bae MD, Joseph Henry\.br\Date and Time Signed: 05/03/22 11:37 EDT\.br\Electronically Co-Signed By: Rylie Garcia\.br\Date and Time Co-Signed: 05/03/22 11:29 EDT Consultation Noteon 02-26-20 Consultation Note [id number] D:127 Normal [facility] GLYCOHEMOGLOBIN A1Con 2021 ADA RECOMMENDATION SEE BELOW Normal [facility] Comment on above: Result Comment: ADA RECOMMENDED LIMIT 4.0 - 6.0 ADA THERAPEUTIC TARGET < 7.0 ACTION SUGGESTED > 7.0 Performed By: #### A 1C #### [facility] [address] [address] [address] Radha Brown Glucose [Mass/Vol] 154 mg/dL Normal [facility] Comment on above: Performed By: #### A 1C #### [facility] [address] [place], [place] [address] Dr. Radha Brown HbA1c (Bld) [Mass fraction] 7.0 % Critically high 4.5-6.2 [facility] Comment on above: Performed By: #### A 1C #### [facility] [address] [place], [place] [address] Dr. Radha Brown Vital Signs Date Time Vital Sign Value Performing Clinician Facility 11-30-2023 10:03-0500 Body temperature 96.91 [degF] ANATOLY Bartlett MD Work Phone: [facility] 08-17-2023 10:03-0500 Body weight 104.78 kg ANATOLY Bartlett MD Work Phone: [facility] 08-17-2023 10:03-0500 Diastolic blood pressure 75 mm[Hg] ANATOLY Bartlett MD Work Phone: [facility] 08-17-2023 10:03-0500 Heart rate 62 /min ANATOLY Bartlett MD Work Phone: [facility] 08-17-2023 10:03-0500 Respiratory rate 16 /min ANATOLY Bartlett MD Work Phone: [facility] 08-17-2023 10:03-0500 SaO2% (BldA) [Mass fraction] 95 % ANATOLY Bartlett MD Work Phone: [facility] 08-17-2023 10:03-0500 Systolic blood pressure 156 mm[Hg] ANATOLY Bartlett MD Work Phone: [facility] 07-26-2023 11:00-0500 Body height 175.26 cm Nico Ball Other [facility] Other 07-26-2023 11:00-0500 Body mass index (BMI) [Ratio] 33.37 kg/m2 Nico Ball Other [facility] Other 07-26-2023 11:00-0500 Body weight 102.51 kg Nico Ball Other [facility] Other 07-26-2023 11:00-0500 Diastolic blood pressure 83 mm[Hg] Nico Ball Other [facility] Other 07-26-2023 11:00-0500 Respiratory rate 12 /min Nico Ball Other [facility] Other 07-26-2023 11:00-0500 Systolic blood pressure 133 mm[Hg] Nico Ball Other [facility] Other 11-29-2022 14:30-0400 Body height 175.26 cm Nico Ball Other [facility] Other 11-29-2022 14:30-0400 Body mass index (BMI) [Ratio] 34.58 kg/m2 Nico Ball Other [facility] Other 11-29-2022 14:30-0400 Body weight 106.23 kg Nico Ball Other [facility] Other 11-29-2022 14:30-0400 Diastolic blood pressure 71 mm[Hg] Nico Ball Other [facility] Other 11-29-2022 14:30-0400 Respiratory rate 12 /min Nico Ball Other [facility] Other 11-29-2022 14:30-0400 Systolic blood pressure 118 mm[Hg] Nico Ball Other [facility] Other 11-01-2022 11:22-0500 Blood Pressure Location LEIA DIALLO [facility] 11-01-2022 11:22-0500 Diastolic blood pressure 80 mm[Hg] LEIA DIALLO [facility] 11-01-2022 11:22-0500 Heart rate 68 /min LEIA DIALLO [facility] 11-01-2022 11:22-0500 Respiratory rate 16 /min LEIA DIALLO [facility] 11-01-2022 11:22-0500 Systolic blood pressure 137 mm[Hg] LEIA LANDRUM [facility] 08-18-2022 10:22-0500 Body temperature 96.21 [degF] ANATOLY Bartlett MD Work Phone: [facility] 08-18-2022 10:22-0500 Body weight 105.23 kg ANATOLY Bartlett MD Work Phone: [facility] 08-18-2022 10:22-0500 Diastolic blood pressure 55 mm[Hg] ANATOLY Bartlett MD Work Phone: [facility] 08-18-2022 10:22-0500 Heart rate 78 /min ANATOLY Bartlett MD Work Phone: [facility] 08-18-2022 10:22-0500 Respiratory rate 18 /min ANATOLY Bartlett MD Work Phone: [facility] 08-18-2022 10:22-0500 SaO2% (BldA) [Mass fraction] 98 % ANATOLY Bartlett MD Work Phone: [facility] 08-18-2022 10:22-0500 Systolic blood pressure 125 mm[Hg] ANATOLY Bartlett MD Work Phone: [facility] 02-17-2022 09:51-0400 Body temperature 96.1 [degF] ANATOLY Bartlett MD Work Phone: [facility] 02-17-2022 09:51-0400 Body weight 100.7 kg ANATOLY Bartlett MD Work Phone: [facility] 02-17-2022 09:51-0400 Diastolic blood pressure 75 mm[Hg] ANATOLY Bartlett MD Work Phone: [facility] 02-17-2022 09:51-0400 Heart rate 66 /min ANATOLY Bartlett MD Work Phone: [facility] 02-17-2022 09:51-0400 Respiratory rate 16 /min ANATOLY Bartlett MD Work Phone: [facility] 02-17-2022 09:51-0400 SaO2% (BldA) [Mass fraction] 97 % ANATOLY Bartlett MD Work Phone: [facility] 02-17-2022 09:51-0400 Systolic blood pressure 120 mm[Hg] ANATOLY Bartlett MD Work Phone: [facility] Encounters Encounter Date Encounter Type Care Provider Facility Start: 03-05-2024 ambulatory LEIA LANDRUM Facili ty:[facility] [place] Start: 08-17-2023 End: 08-17-2023 ambulatory Ronda BARTLETT Facility:[facility] Start: 08-17-2023 End: 08-17-2023 Patient encounter procedure Ronda Bartlett MD Work Phone: Radiation Oncology Comment on above: Malignant neoplasm o f prostate (HCC) (Primary Dx) Start: 07-26-2023 End: 07-26-2023 ambulatory Nico Lino Other [facility] Other Start: 07-26-2023 Patient encounter procedure Nico Lino [facility] Start: 07-17-2023 End: 07-17-2023 ambulatory Nico Lino Other [facility] Other Start: 07-17-2023 Telephone encounter Nico Bond [facility] Start: 04-04-2023 End: 04-04-2023 ambulatory Nico Lino Other [facility] Other Start: 04-04-2023 Telephone encounter Nico Bond [facility] Start: 01-05-2023 End: 01-05-[address] NICO LINO Facility:[facility] Start: 11-29-2022 End: 11-30-[address] NICO LINO [facility] Other Start: 11-29-2022 Office outpatient vi sit 25 minutes Nico Lino [facility] Start: 11-01-2022 End: 11-02-2022 ambulatory LEIA LANDRUM Facility:[facility] Start: 11-01-2022 End: 11-01-2022 Patient encounter procedure LEIA LANDRUM [facility] Start: 08-18-2022 End: 08-18-2022 ambulatory Irlanda Matthew DIRECTOR OF RESOURCE DEVELOPMENT.ANALYTICS ANALYST Work Phone: Hematology/Oncology Comment on above: Prostate cancer (HCC ) Start: 08-18-2022 End: 08-18-2022 Patient encounter procedure Irlanda Castro DIRECTOR OF RESOURCE DEVELOPMENT.ANALYTICS ANALYST Work Phone: [facility] Comment on above: Prostate cancer (HCC ) (Primary Dx) Start: 07-29-2022 End: 07-30-[address] NICO LINO Facility: Start: 07-25-2022 Adult health examination Nico Lino Other [facility] Other Start: 05-03-2022 End: 05-04-2022 ambulatory Joseph Vasques Facility:[facility] Start: 02-17-2022 End: 02-17-2022 Patient encounter procedure Ronda Bartlett MD Work Phone: Radiation Oncology Comment on above: Prostate cancer (HCC ) (Primary Dx) Start: 02-16-2022 End: 02-17-[address] NICO LINO Facility:[facility] Start: 01-16-[address] VICKI BARTLETT Fac ility:[facility] Start: 07-19-2021 End: 07-19-2021 Pre-procedure evaluation check Nico Lino Other [facility] Other Start: 10-24-2014 End: 10-25-2014 Patient encounter DEFAULT PHYSICIAN Facility:[facility] Procedures Date Procedure Procedure Detail Performing Clinician Start: 04-04-2023 PSA screening [facility] Provi michael Start: 07-29-2022 End: 07-29-2022 PSA screening [facility] Provider Comment on above: Performed By: #### P SAD, FOL, FERR, FETIBC #### [facility] [address] [place] [address] Dr. Radha Brown Start: 02-17-2022 Adult depression scr eening assessment ANATOLY Bartlett MD Work Phone: Start: 02-16-2022 End: 02-16-2022 PSA screening [facility] Provider Comment on above: Performed By: #### P SAD #### [facility] [address] [address] [address] Radha Brown Start: 07-07-2021 Brachytherapy implan t (physical object) LEIA LANDRUM Start: 01-29-2021 Biopsy of prostate REVA LANDRUM Start: 09-18-2017 Colonoscopy LEIA Delcid CHARISSARobi Start: 06-09-2016 General examination of patient Nico Lino Other Start: 06-09-2016 Screening for malign ant neoplasm of colon Nico Lino Other Start: 06-24-2015 Screening for malign ant neoplasm of prostate Nico Lino Other Angioplasty of blood vessel LEIA LANDRUM Appendectomy LEIA LANDRUM Depression screening Jena Lino Other Screening for malign ant neoplasm of prostate Nico Lino Other Plan of Treatment Date Care Activity Detail Author Start: 01-05-2033 Urine microalbumin profile DTaP,Tdap,Td Vaccine (2 - Td or Tdap) [facility] Start: 07-31-2024 Diabetes Screening Diabetes Screenin g [facility] Start: 02-15-2024 End: 05-16-2024 Prostate specific Ag [Mass/volume] in Serum or Plasma PSA/PROSTSPECAG DIAG Lab Routine Malignant neoplasm of prostate (HCC) Expected: 02/15/2024 (Approximate), Expires: 05/16/[address] [facility] Work Phone: Comment on above: Expected: 02/15/2024 (Approximate), Expires: 05/16/2024 Start: 08-18-2023 End: 10-18-2023 Prostate specific Ag [Mass/volume] in Serum or Plasma PSA/PROSTSPECAG DIAG Lab Routine Prostate cancer (HCC) Expected: 08/18/2023, Expires: 10/18/[address] [facility] Work Phone: Comment on above: Expected: 08/18/2023 , Expires: 10/18/2023 Start: 02-17-2023 Adult depression screening assessment DEPRESSION SCREENING [facility] Start: 09-18-2022 Advance Directive Discussion Advance Directive Discussion [facility] Start: 09-18-2022 Depression Assessment Depression Ass essment [facility] Start: 08-19-2022 End: 10-19-2022 Prostate specific Ag [Mass/volume] in Serum or Plasma PSA/PROSTSPECAG DIAG Lab Routine Prostate cancer (HCC) Expected: 08/19/2022 (Approximate), Expires: 10/19/[address] [facility] Work Phone: Comment on above: Expected: 08/19/2022 (Approximate), Expires: 10/19/2022 Start: 09-18-2021 ADVANCE DIRECTIVE DISCUSSION ADVANCE DIRECTIVE DISCUSSION [facility] Start: 09-18-2021 DEPRESSION ASSESSMENT DEPRESSION ASS ESSMENT [facility] Start: 05-03-2021 COVID-19 VACCINE (3 - Booster for Moderna series) COVID-19 VACCINE (3 - Booster for Moderna series) [facility] Start: 10-04-2019 Pneumococcal Vaccine : 65+ (2 - PCV) Pneumococcal Vaccine: 65+ (2 - PCV) [facility] Start: 10-04-2019 PNEUMOCOCCAL: 65+ (2 - PCV) PNEUMOCOCCAL: 65+ (2 - PCV) [facility] Start: 2005 RSV Vaccine (1 - 1-d ose 60+ series) RSV Vaccine (1 - 1-dose 60+ series) [facility] Start: 1995 SHINGRIX VACCINE (1 of 2) SHINGRIX VACCINE (1 of 2) [facility] Start: 1990 DIABETES SCREEN DIABETES SCREEN [facility] Start: 1964 SHINGRIX VACCINE (1 of 2) SHINGRIX VACCINE (1 of 2) [facility] Start: 1964 Urine microalbumin profile DTAP,TDAP,TD (1 - Tdap) [facility] Start: 1963 HEPATITIS C SCREENING HEPATITIS C IA JUA[facility] Immunizations Immunization Date Immunization Notes Care Provider Mak loya 06-14-2023 COVID-19 Vaccine Pfi zer - Documentation Purposes Only Nico Lino Other [facility] Other 06-14-2023 Flu Shot - Documentation Purposes Only Nico Lino Other [facility] Other 01-05-2023 tetanus toxoid, redu doni diphtheria toxoid, and acellular pertussis vaccine, adsorbed Nico Lino Other [facility] Other 07-25-2022 influenza virus vaccine, split virus (incl. purified surface antigen) Nico Lino Other [facility] Other 07-25-2022 influenza virus vaccine, unspecified formulation LEIA DIALLO [facility] 07-23-2022 SARS-CoV-2 (COVID-19 ) [id number] LEIA DIALLO [facility] 05-05-2022 SARS-CoV-2 mRNA (wufulomkkcl-mdou-tltkn se) vaccine LEIA DIALLO [facility] 06-10-2021 influenza virus vaccine, split virus (incl. purified surface antigen) Nico Lino Other [facility] Other 06-10-2021 influenza virus vaccine, unspecified formulation LEIA DIALLO [facility] 06-10-2021 Seasonal trivalent influenza vaccine, adjuvanted, preservative free ANATOLY Bartlett MD Work Phone: [facility] 12-01-2020 COVID-19 vaccine, fu ll dose (MODERNA) ANATOLY Bartlett MD Work Phone: [facility] 11-05-2020 COVID-19 vaccine, fu ll dose (MODERNA) ANATOLY Bartlett MD Work Phone: [facility] 07-09-2020 influenza virus vaccine, split virus (incl. purified surface antigen) Nico Lino Other [facility] Other 06-04-2019 influenza virus vaccine, unspecified formulation LEIA DIALLO [facility] 06-04-2019 Seasonal trivalent influenza vaccine, adjuvanted, preservative free ANATOLY Bartlett MD Work Phone: [facility] 10-04-2018 pneumococcal Conjuga te, unspecified formulation; Translations: [Need for prophylactic vaccination against Streptococcus pneumoniae (pneumococcus)] Nico Lino Other [facility] Other 10-04-2018 pneumococcal polysaccharide vaccine, 23 valent ANATOLY Bartlett MD Work Phone: [facility] 06-24-2015 influenza virus vaccine, split virus (incl. purified surface antigen) Nico Lino Other [facility] Other 06-24-2015 pneumococcal conjuga te vaccine, 13 valent Nico Lino Other [facility] Other Payers Date Payer Category Payer Unknown 2020 Unknown MMO MMO [employer] NAL [id number] 2020-Present [phone] [address] [place] [address] Indemnity [id number] 2011 Medicare MEDICARE MEDICAR E A AND B [id number] 2011-Present [phone] [place] [address] Medicare [id number] 2011 Medicare [id number] 1959 Medicare [id number] 1959 Private Health Insurance [id number] 1959 Self-pay [id number] 1959 Unknown [id number] 1945 Unknown [id number] 1945 Unknown [id number] 1945 Unknown [id number] 727 1945 Unknown [id number] 593 1945 Unknown [id number] 1945 Unknown [id number] 593 1945 Unknown [id number] 593 1945 Unknown [id number] 593 1945 Unknown [id number] 593 Social History Date Type Detail Facility Start: 03-03-2021 End: 08-18-2022 Tobacco smoking status NHIS Ex-smoker [facility] Start: 03-03-1957 End: 03-03-1961 History of tobacco use Current smoker [facility] Start: 03-03-2021 End: 08-17-2023 Cigarettes smoked current (pack per day) - Reported 0.5 [facility] Start: 03-03-2021 End: 08-18-2022 Tobacco use and exposure Smokeless tobacco non-user [facility] Start: 02-17-2022 End: 08-18-2022 Alcohol intake Current drinker of alcohol (finding) [facility] Start: 03-03-2021 History SDOH Alcohol Comment Socially [facility] Start: 1945 Sex Assigned At Not on file [facility] Start: 02-07-2022 End: 08-18-2022 Exposure to SARS-CoV-2 (event) Not sure [facility] Start: 03-03-1957 End: 03-03-1961 History of tobacco use Cigarette Smoker [facility] Start: 08-18-2022 End: 08-17-2023 Sex Assigned At Male [facility] Adult Depression Screening Assessment 0 [facility] Medical Equipment Procedure Code Equipment Code Equipment Origin al Text Equipment Identifier Dates PROSTATIC BRACHYTHERAPY Ronda Bartlett MD 07/07/21 Unknown Other FDA Start: 07-07-2021 Functional Status Date Assessment Result Facility 11-01-2022 Functional Status N/A [facility] Clinical Notes 02-17-2022 to 08-17-2023 Ronda Bartlett MD - 08/17/2023 10:15 AM Angélica Pinto RN - 08/17/2023 10:07 AM EST Note Date & Type Note Facility 08-17-2023 Note HNO ID: [id number] Author: Ronda Bartlett MD Service: ? Author Type: Physician Type: Progress Notes Filed: 08/17/2023 10:17 AM Note Text: Radiation Oncology - Follow Up Note PATIENT NAME: Segun Johnson PATIENT DIAGNOSIS: Prostate adenocarcinoma, initial PSA 11.5, biopsy Scandinavia score 4 + 3 = 7 (grade group 3), clinical stage T2b, N0, M0, stage IIC [T1-T2, N0, M0, PSA <20, GG 3] (AJCC 8th ed.), s/p TRUS Random biopsy. RADIATION SUMMARY: Pelvis External Beam: 05/05/2021- 06/09/2021 Prostate brachytherapy: 07/07/21 AREA TREATED: Pelvis and Prostate DELIVERED DOSE: Pelvis/ Prostate 45 Gy in 25 fractions, 3 Arcs, IMRT, 10 MV with daily CBCT Prostate Brachytherapy boost: 100 Gy, Pd-103 INTERVAL HISTORY: Doing well denies any new problems. PSA HISTORY: PSA. (no units) Date Value 04/04/2023 <0.13 07/29/2022 <0.13 02/16/2022 0.13 07/31/2021 <0.05 ALLERGIES No Known Allergies leuprolide acetate (LUPRON DEPOT INTRAMUSC.) Inject intramuscularly. loperamide HCl (IMODIUM ORAL) Take by mouth. aspirin, enteric coated (ASPIRIN, ENTERIC COATED) 81 mg EC tablet Take by mouth. atenolol (TENORMIN) 50 mg tablet Take 50 mg by mouth. atorvastatin (LIPITOR) 40 mg tablet Take 40 mg by mouth. glimepiride (AMARYL) 2 mg tablet lisinopril (ZESTRIL, PRINIVIL) 10 mg tablet Take 10 mg by mouth. sertraline (ZOLOFT) 100 mg tablet Take 100 mg by mouth. tamsulosin (FLOMAX) 0.4 mg Take 0.4 mg by mouth once daily. REVIEW OF SYSTEMS: D/N = 4-6/2-3 Hematuria: none Dysuria: Yes Incontinence: occ post void drib Urgency: moderate Catheter use: No Medications to aid urination: n - Total AUA Score: 7 Bowel movement frequency: 1/day Bowel movement quality: normal Blood per rectum: none ADT: Lupron for approximately 12 months currently off PHYSICAL EXAM: BP 156/75 Pulse 62 Temp 36.1 ?C (96.9 ?F) Resp 16 Wt 104.8 kg (231 lb) SpO2 95% BMI 33.62 kg/m? KPS: 100 General appearance: Alert and oriented. No acute distress. Rectal exam def Extremities: No deformities, edema, skin discoloration, clubbing or cyanosis. Lymph Nodes: No cervical lymphadenopathy, No supraclavicular lymphadenopathy, No axillary lymphadenopathy. Skin: Skin color, texture, turgor normal, no suspicious rashes or lesions. ASSESSMENT/PLAN: Prostate adenocarcinoma, initial PSA 11.5, biopsy Asaf score 4 + 3 = 7 (grade group 3), clinical stage T2b, N0, M0, stage IIC [T1-T2, N0, M0, PSA <20, GG 3] (AJCC 8th ed.), s/p Pelvic radiation and prostate brachytherapy boost. No evidence of recurrence or posttreatment problems. Plan to see patient back in 6 months with repeat PSA. Signed by: Ronda Bartlett MD cc: Nico Lino ([facility]) [address] [place] [address] Dr. Storey Portions of the above note extracted and edited from previous visit as well as active information included in the EMR. [facility] 08-17-2023 History of Present illness Narrative Radiation Oncology - Follow Up Note PATIENT NAME: Segun Johnson PATIENT DIAGNOSIS: Prostate adenocarcinoma, 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 RADIATION SUMMARY: Pelvis External Beam: 05/05/2021- 06/09/2021 Prostate brachytherapy: 07/07/21 AREA TREATED: Pelvis and Prostate DELIVERED DOSE: Pelvis/ Prostate 45 Gy in 25 fractions, 3 Arcs, IMRT, 10 MV with daily CBCT Prostate Brachytherapy boost: 100 Gy, Pd-103 INTERVAL HISTORY: Doing well denies any new problems. PSA HISTORY: PSA. (no units) Date Value 04/04/2023 <0.13 07/29/2022 <0.13 02/16/2022 0.13 07/31/2021 <0.05 ALLERGIES No Known Allergies leuprolide acetate (LUPRON DEPOT INTRAMUSC.) Inject intramuscularly. loperamide HCl (IMODIUM ORAL) Take by mouth. aspirin, enteric coated (ASPIRIN, ENTERIC COATED) 81 mg EC tablet Take by mouth. atenolol (TENORMIN) 50 mg tablet Take 50 mg by mouth. atorvastatin (LIPITOR) 40 mg tablet Take 40 mg by mouth. glimepiride (AMARYL) 2 mg tablet lisinopril (ZESTRIL, PRINIVIL) 10 mg tablet Take 10 mg by mouth. sertraline (ZOLOFT) 100 mg tablet Take 100 mg by mouth. tamsulosin (FLOMAX) 0.4 mg Take 0.4 mg by mouth once daily. REVIEW OF SYSTEMS: D/N = 4-6/2-3 Hematuria: none Dysuria: Yes Incontinence: occ post void drib Urgency: moderate Catheter use: No Medications to aid urination: n - Total AUA Score: 7 Bowel movement frequency: 1/day Bowel movement quality: normal Blood per rectum: none ADT: Lupron for approximately 12 months currently off PHYSICAL EXAM: BP 156/75 Pulse 62 Temp 36.1 C (96.9 F) Resp 16 Wt 104.8 kg (231 lb) SpO2 95% BMI 33.62 kg/m KPS: 100 General appearance: Alert and oriented. No acute distress. Rectal exam def Extremities: No deformities, edema, skin discoloration, clubbing or cyanosis. Lymph Nodes: No cervical lymphadenopathy, No supraclavicular lymphadenopathy, No axillary lymphadenopathy. Skin: Skin color, texture, turgor normal, no suspicious rashes or lesions. ASSESSMENT/PLAN: Prostate adenocarcinoma, initial PSA 11.5, biopsy Asaf score 4 + 3 = 7 (grade group 3), clinical stage T2b, N0, M0, stage IIC [T1-T2, N0, M0, PSA <20, GG 3] (AJCC 8th ed.), s/p Pelvic radiation and prostate brachytherapy boost. No evidence of recurrence or posttreatment problems. Plan to see patient back in 6 months with repeat PSA. Signed by: Ronda Bartlett MD cc: Nico Lino ([facility]) [address] [place] [address] Dr. Storey Portions of the above note extracted and edited from previous visit as well as active information included in the EMR. documented in this encounter [facility] 08-17-2023 Nurse Note AUA 7 Angélica Acharya RN documented in this encounter [facility] 07-26-2023 Evaluation note Encounter Date Diagnosis Assessment Notes Jul, Medicare annual wellness visit, subsequent (ICD-10 - Z00.00) Personalized health advice was given to the beneficiary including a written plan for screenings discussed and provided. Advanced care planning reviewed and/or information given as requested. Additional counseling was provided here today in regards to, [ ]. The above visit was performed by [ ], under direct supervision of [ ]. Document reviewed and amended by provider signed below. Jul, ASHD (arteriosclerotic heart disease) (ICD-10 - I25.10) This patient is stable without activity related CP, dyspnea or lightheadedness. They are instructed to continue exercise and AHA diet plan. Continue secondary prevention measures. Jul, Type 2 diabetes mellitus with hyperglycemia, without long-term current use of insulin (ICD-10 - E11.65) This patient is following a comprehensive diabetic treatment plan. They are checking their feet daily for calluses and nonhealing ulcers. They are being seen for yearly dilated eye examinations. Goals: SBP less than 130, LDL less than 100, FBS less than 140, A1C less than 7%. They are checking their BS daily, will which are reviewed at the office visit. Continue regular routine monitoring of A1C,] Microalbumin, Dilated eye exam and Foot exam A1C remains elevated, will increase Glimepiride to 4mg Keep Metformin at 1000mg due to GI side effects at a higher dose Jul, Primary hypertension (ICD-10 - I10) This patient is instructed to consume a healthy, low-fat, low-salt diet. They are also encouraged to continue exercise to achieve/maintain a normal BMI. Jul, Pure hypercholesterolemia (ICD-10 - E78.00) Instructed on diet and exercise with continued statin therapy.Discusse d the beneficial effects of lowering cholesterol in reducing the risk for cerebrovascular and cardiovascular disease. Jul, Chronic venous insufficiency (ICD-10 - I87.2) Avoid salt and elevate lower extremities, support stockings, inspect legs and feet daily for blisters and ulcerations. 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 Recheck CBC Jul, Pernicious anemia (ICD-10 - D51.0) Continue supplement, recheck CBC [facility] Other 07-18-2023 Evaluation note* Encounter Date Diagnosis Assessment Notes Treatment Notes Treatment Clinical Notes Mar, Type 2 diabetes mellitus with hyperglycemia, without long-term current use of insulin (ICD-10 - E11.65) [facility] Other 03-14-2023 Evaluation note* Encounter Date Diagnosis Assessment Notes Treatment Notes Treatment Clinical Notes Nov, ASHD (arteriosclerotic heart disease) (ICD-10 - I25.10) This patient is stable without activity related CP, dyspnea or lightheadedness. They are instructed to continue exercise and AHA diet plan. Nov, Type 2 diabetes mellitus with hyperglycemia, without long-term current use of insulin (ICD-10 - E11.65) This patient is following a comprehensive diabetic treatment plan. They are checking their feet daily for calluses and nonhealing ulcers. They are being seen for yearly dilated eye examinations. Goals: SBP less than 130, LDL less than 100, FBS less than 140, AC and A1C less than 7%. They are checking their BS daily, will which are reviewed at the office visit. A1C: due Nov, Primary hypertension (ICD-10 - I10) This patient is instructed to consume a healthy, low-fat, low-salt diet. They are also encouraged to continue exercise to achieve/maintain a normal BMI. Nov, Hyperlipidemia type II (ICD-10 - E78.01) Diet and exercise with continued statin therapy. Nov, Chronic venous insufficiency (ICD-10 - I87.2) Avoid salt and elevate lower extremities, support stockings, inspect legs and feet daily for blisters and ulcerations. Nov, Prostate cancer (ICD-10 - C61) s/p brachytherapy, ext beam radiation and ADT No s/s recurrence, f/u Urology Nov, CATHY (generalized anxiety disorder) (ICD-10 - F41.1) Stable, continue healthy diet, exercise. No change in treatment Nov, Pernicious anemia (ICD-10 - D51.0) B12 monthly [facility] Other 02-14-2023 Hospital Discharge instructions Patient Education 11/01/2022 11:50:19 Benign Prostatic Hyperplasia Benign Prostatic Hyperplasia Benign prostatic hyperplasia (BPH) is an enlarged prostate gland that is caused by the normal agingprocess and not by cancer. The prostate is a walnut-sized gland that is involved in the production of semen. It is located in front of the rectum and below the bladder. The bladder stores urine and the urethra is the tube that carries the urine out of the body. The prostate may get bigger as a man gets older. An enlarged prostate can press on the urethra. This can make it harder to pass urine. The build-up of urine in the bladder can cause infection. Back pressure and infection may progress to bladder damage and kidney (renal) failure. What are the causes? This condition is part of a normal aging process. However, not all men develop problems from this condition. If the prostate enlarges away from the urethra, urine flow will not be blocked. If it enlarges toward the urethra and compresses it, there will be problems passing urine. What increases the risk? This condition is more likely to develop in men over the age of 50 years. What are the signs or symptoms? Symptoms of this condition include: Getting up often during the night to urinate. Needing to urinate frequently during the day. Difficulty starting urine flow. Decrease in size and strength of your urine stream. Leaking (dribbling) after urinating. Inability to pass urine. This needs immediate treatment. Inability to completely empty your bladder. Pain when you pass urine. This is more common if there is also an infection. Urinary tract infection (UTI). How is this diagnosed? This condition is diagnosed based on your medical history, a physical exam, and your symptoms. Tests will also be done, such as: A post-void bladder scan. This measures any amount of urine that may remain in your bladder after you finish urinating. A digital rectal exam. In a rectal exam, your health care provider checks your prostate by putting a lubricated, gloved finger into your rectum to feel the back of your prostate gland. This exam detects the size of your gland and any abnormal lumps or growths. An exam of your urine (urinalysis). A prostate specific antigen (PSA) screening. This is a blood test used to screen for prostate cancer. An ultrasound. This test uses sound waves to electronically produce a picture of your prostate gland. Your health care provider may refer you to a specialist in kidney and prostate diseases (urologist). How is this treated? Once symptoms begin, your health care provider will monitor your condition (active surveillance or watchful waiting). Treatment for this condition will depend on the severity of your condition. Treatment may include: Observation and yearly exams. This may be the only treatment needed if your condition and symptoms are mild. Medicines to relieve your symptoms, including: ?Medicines to shrink the prostate. ?Medicines to relax the muscle of the prostate. Surgery in severe cases. Surgery may include: ?Prostatectomy. In this procedure, the prostate tissue is removed completely through an open incision or with a laparoscope or robotics. ?Transurethral resection of the prostate (TURP). In this procedure, a tool is inserted through the opening at the tip of the penis (urethra). It is used to cut away tissue of the inner core of the prostate. The pieces are removed through the same opening of the penis. This removes the blockage. ?Transurethral incision (TUIP). In this procedure, small cuts are made in the prostate. This lessens the prostate's pressure on the urethra. ?Transurethral microwave thermotherapy (TUMT). This procedure uses microwaves to create heat. The heat destroys and removes a small amount of prostate tissue. ?Transurethral needle ablation (TUNA). This procedure uses radio frequencies to destroy and remove a small amount of prostate tissue. ?Interstitial laser coagulation (ILC). This procedure uses a laser to destroy and remove a small amount of prostate tissue. ?Transurethral electrovaporization (TUVP). This procedure uses electrodes to destroy and remove a small amount of prostate tissue. ?Prostatic urethral lift. This procedure inserts an implant to push the lobes of the prostate away from the urethra. Follow these instructions at home: Take [id number] and prescription medicines only as told by your health care provider. Monitor your symptoms for any changes. Contact your health care provider with any changes. Avoid drinking large amounts of liquid before going to bed or out in public. Avoid or reduce how much caffeine or alcohol you drink. Give yourself time when you urinate. Keep all follow-up visits as told by your health care provider. This is important. Contact a health care provider if: You have unexplained back pain. Your symptoms do not get better with treatment. You develop side effects from the medicine you are taking. Your urine becomes very dark or has a bad smell. Your lower abdomen becomes distended and you have trouble passing your urine. Get help right away if: You have a fever or chills. You suddenly cannot urinate. You feel lightheaded, or very dizzy, or you faint. There are large amounts of blood or clots in the urine. Your urinary problems become hard to manage. You develop moderate to severe low back or flank pain. The flank is the side of your body between the ribs and the hip. These symptoms may represent a serious problem that is an emergency. Do not wait to see if the symptoms will go away. Get medical help right away. Call your local emergency services (911 in the [place] Do not drive yourself to the hospital. Summary Benign prostatic hyperplasia (BPH) is an enlarged prostate that is caused by the normal aging process and not by cancer. An enlarged prostate can press on the urethra. This can make it hard to pass urine. This condition is part of a normal aging process and is more likely to develop in men over the age of 50 years. Get help right away if you suddenly cannot urinate. This information is not intended to replace advice given to you by your health care provider. Make sure you discuss any questions you have with your health care provider. Document Released: 09/04/2006 Document Revised: 07/30/2019 Document Reviewed: 10/09/2017 [employer] Patient Education 2020 [employer]. Follow Up Care 05/03/2022 11:28:51 With:LEIA LANDRUM PA-C, URL Address: [address] [place] [address] When:Within 18 Month(s) Comments:PSA [facility] 12-01-2022 History of Present illness Narrative* Irlanda Castro APRN.ANALYTICS ANALYST - 08/18/2022 2:26 PM EST Segun Johnson returns for follow-up. He was seen and examined by Dr. Bartlett today. He urinates every 2-3 hours. He has occasional dribbling of urine. He denies any problems with his bowel. Patient was given his treatment summary and survivorship care plan for prostate cancer. Irlanda Castro APRN.KEKE [facility] History of Present illness Narrative* Ronda Bartlett MD - 08/18/2022 10:30 AM EST Radiation Oncology - Follow Up Note PATIENT NAME: Segun Johnson PATIENT DIAGNOSIS: Prostate adenocarcinoma, 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 RADIATION SUMMARY: Pelvis External Beam: 05/05/2021- 06/09/2021 Prostate brachytherapy: 07/07/21 AREA TREATED: Pelvis and Prostate DELIVERED DOSE: Pelvis/ Prostate 45 Gy in 25 fractions, 3 Arcs, IMRT, 10 MV with daily CBCT Prostate Brachytherapy boost: 100 Gy, Pd-103 INTERVAL HISTORY: Doing well denies any new problems. PSA HISTORY: PSA. (no units) Date Value 07/29/2022 <0.13 02/16/2022 0.13 07/31/2021 <0.05 ALLERGIES No Known Allergies leuprolide acetate (LUPRON DEPOT INTRAMUSC.) Inject intramuscularly. tamsulosin (FLOMAX) 0.4 mg Take 0.4 mg by mouth once daily. loperamide HCl (IMODIUM ORAL) Take by mouth. aspirin, enteric coated (ASPIRIN, ENTERIC COATED) 81 mg EC tablet Take by mouth. atenolol (TENORMIN) 50 mg tablet Take 50 mg by mouth. atorvastatin (LIPITOR) 40 mg tablet Take 40 mg by mouth. glimepiride (AMARYL) 2 mg tablet lisinopril (ZESTRIL, PRINIVIL) 10 mg tablet Take 10 mg by mouth. metFORMIN (GLUCOPHAGE) 1,000 mg tablet twice daily. sertraline (ZOLOFT) 100 mg tablet Take 100 mg by mouth. REVIEW OF SYSTEMS: D/N = 4-6/2-3 Hematuria: none Dysuria: Yes Incontinence: occ post void drib Urgency: moderate Catheter use: No Medications to aid urination: n - Total AUA Score: 13 Bowel movement frequency: 1/day Bowel movement quality: normal Blood per rectum: none ADT: Lupron per Dr. Storey PHYSICAL EXAM: BP 125/55 Pulse 78 Temp (!) 35.7 C (96.2 F) Resp 18 Wt 105.2 kg (232 lb) SpO2 98% BMI 33.77 kg/m KPS: 100 General appearance: Alert and oriented. No acute distress. Rectal exam def Extremities: No deformities, edema, skin discoloration, clubbing or cyanosis. Lymph Nodes: No cervical lymphadenopathy, No supraclavicular lymphadenopathy, No axillary lymphadenopathy. Skin: Skin color, texture, turgor normal, no suspicious rashes or lesions. ASSESSMENT/PLAN: Prostate adenocarcinoma, initial PSA 11.5, biopsy Asaf score 4 + 3 = 7 (grade group 3), clinical stage T2b, N0, M0, stage IIC [T1-T2, N0, M0, PSA <20, GG 3] (AJCC 8th ed.), s/pPelvic radiation and prostate brachytherapy boost. No evidence of recurrence of posttreatment problems. Plan to see patient back in 6 months with repeat PSA. Signed by: Ronda Bartlett MD cc: Nico Lino ([facility]) [address] [place] [address] Dr. Storey Portions of the above note extracted and edited from previous visit as well as active information included in the EMR. [facility] Nurse Note* Angélica Acharya RN - 08/18/2022 10:30 AM EST AUA 14 Angélica Acharya RN [facility] History of Present illness Narrative* Ronda Bartlett MD - 02/17/2022 9:58 AM EDT Radiation Oncology - Follow Up Note PATIENT NAME: Segun Johnson PATIENT DIAGNOSIS: Prostate adenocarcinoma, 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 RADIATION SUMMARY: Pelvis External Beam: 05/05/2021- 06/09/2021 Prostate brachytherapy: 07/07/21 AREA TREATED: Pelvis and Prostate DELIVERED DOSE: Pelvis/ Prostate 45 Gy in 25 fractions, 3 Arcs, IMRT, 10 MV with daily CBCT Prostate Brachytherapy boost: 100 Gy, Pd-103 INTERVAL HISTORY: Doing well denies any new problems. PSA HISTORY: PSA. (no units) Date Value 02/16/2022 0.13 07/31/2021 <0.05 ALLERGIES No Known Allergies tamsulosin (FLOMAX) 0.4 mg Take 0.4 mg by mouth once daily. loperamide HCl (IMODIUM ORAL) Take by mouth. CALCIUM ORAL Take by mouth. aspirin, enteric coated (ASPIRIN, ENTERIC COATED) 81 mg EC tablet Take by mouth. atenolol (TENORMIN) 50 mg tablet Take 50 mg by mouth. atorvastatin (LIPITOR) 80 mg tablet Take 80 mg by mouth. glimepiride (AMARYL) 2 mg tablet lisinopril (ZESTRIL, PRINIVIL) 10 mg tablet Take 10 mg by mouth. metFORMIN (GLUCOPHAGE) 1,000 mg tablet twice daily. sertraline (ZOLOFT) 100 mg tablet Take 100 mg by mouth. cholecalciferol, vitamin D3, (VITAMIN D3 ORAL) Take by mouth. REVIEW OF SYSTEMS: D/N = 4-6/2-3 Hematuria: none Dysuria: Yes Incontinence: No Urgency: moderate Catheter use: No Medications to aid urination: n - Total AUA Score: 10 Bowel movement frequency: 1/day Bowel movement quality: normal Blood per rectum: none PHYSICAL EXAM: BP 120/75 Pulse 66 Temp (!) 35.6 C (96.1 F) Resp 16 Wt 100.7 kg (222 lb) SpO2 97% BMI 32.31 kg/m KPS: 100 General appearance: Alert and oriented. No acute distress. Abdomen: Normal abdominal exam, Abdomen soft, non-tender. No masses, organomegaly. Rectal exam def Extremities: No deformities, edema, skin discoloration, clubbing or cyanosis. Lymph Nodes: No cervical lymphadenopathy, No supraclavicular lymphadenopathy, No axillary lymphadenopathy. Skin: Skin color, texture, turgor normal, no suspicious rashes or lesions. ASSESSMENT/PLAN: Prostate adenocarcinoma, initial PSA 11.5, biopsy [place] score 4 + 3 = 7 (grade group 3), clinical stage T2b, N0, M0, stage IIC [T1-T2, N0, M0, PSA <20, GG 3] (AJCC 8th ed.), s/pPelvic radiation and prostate brachytherapy boost. PSA remains low. No clinical evidence recurrence of posttreatment problems. Plan to see patient back in 4 months with repeat PSA. Signed by: Ronda Bartlett MD cc: Nico Lino ([facility]) [address] [place] [address] Dr. Storey Portions of the above note extracted and edited from previous visit as well as active information included in the EMR. documented in this encounter[facility] Nurse Note* Angélica Acharya RN - 02/17/2022 9:54 AM EDT AUA 10 Angélica Acharya RN documented [facility] note Future Appointments Appointment Date:03/05/2024 11:00:00 AM Scheduled Provider:LEIA LANDRUM PA-C Location:[facility] Appointment Type:URO Office Visit Diagnostic Tests Pending * PSA Total 11/01/22 [facility] evaluation note* Diagnosis Prostate cancer (HCC)- Primary Malignant neoplasm of prostate documented in this encounter [facility] note* Diagnosis Prostate cancer (HCC) Malignant neoplasm of prostate [facility] [place] [facility]* Diagnosis Prostate cancer (HCC)- Primary Malignant neoplasm of prostate documented in this encounter [facility] noteNo InformationNort [employer] Other Evaluation note* Diagnosis Malignant neoplasm of prostate (HCC)- Primary Malignant neoplasm of prostate documented in this encounter [facility] general Narrative - Reported* Type Description Date Medical History ASHD (arteriosclerotic heart dis ease) Medical History Essential hypertension Medical History Controlled type 2 di abetes mellitus with hyperglycemia, without long-term current use of insulin Medical History Prostate cancer Medical History Chronic venous insufficiency Medical History CATHY (generalized anxiety disorde r) Medical History Folate deficiency anemia Medical History Pernicious anemia Medical History High risk medication use Medical History Anemia, unspecified type Medical History Hyperlipidemia type II Medical History Acute seasonal allergic rhinitis due to pollen Medical History Benign prostatic hyp erplasia with lower urinary tract symptoms Surgical History TRANSRECTAL ULTRASOUND (TRUS) W ITH BIOPSY 2020 Surgical History LHC PTCA LAD/OM 2003 Hospitalization History SEE SURGICAL HX [facility] Other Hospital course Narrative No data available for this section [facility] progress note No data available for this section [facility] Summary Purpose Family History No Family History Records FoundNo Family History Records FoundNo Family History Records FoundNo Family History Records Found Advance Directives No Advanced Directives Records FoundNo Advanced Directives Records FoundNo Advanced Directives Records FoundNo Advanced Directives Records Found Additional Source Comments (unrecognized sect ion and content) No Status Records FoundNo Status Records FoundNo Status Records FoundNo Status Records Found INFORMATION SOURCE (unrecogn ized section and content) DATE CREATED AUTHOR 04/06/2018 [facility] DATE CREATED AUTHOR AUTHOR'S ORGANIZ ATION 11/02/2022 [facility] DATE CREATED AUTHOR AUTHOR'S ORGANIZ ATION 01/09/2023 [facility] DATE CREATED AUTHOR AUTHOR'S ORGANIZ ATION 08/20/2023 [facility] Source Comments (unrecognize d section and content) In the event this informatio n is protected by the Federal Confidentiality of Alcohol and Drug Abuse Patient Records regulations: The Federal rules restrict any use of the information to criminally investigate or prosecute any alcohol or drug abuse patient.[facility] HealthIn the event this information is protected by the Federal Confidentiality of Alcohol and Drug Abuse Patient Records regulations: The Federal rules restrict any use of the information to criminally investigate or prosecute any alcohol or drug abuse patient.[facility] HealthIn the event this information is protected by the Federal Confidentiality of Alcohol and Drug Abuse Patient Records regulations: The Federal rules restrict any use of the information to criminally investigate or prosecute any alcohol or drug abuse patient.[facility] the event this information is protected by the Federal Confidentiality of Alcohol and Drug Abuse Patient Records regulations: The Federal rules restrict any use of the information to criminally investigate or prosecute any alcohol or drug abuse patient.[facility] Reason for Visit (unrecogniz ed section and content) Reason Comments Prostate Cancer Care Teams (unrecognized sec tion and content) Telemetry Technician Relationship Specialty Start Date End Date Nico Lino, DO [address] [facility] [place] [address] PCP - General Internal Medicine 02/10/21 Joseph Vasques Jr. [address] [place] [address] Urology 02/10/21 Telemetry Technician Relationship Specialty Start Date End Date Nico Lino, DO [address] [facility] [place] [address] PCP - General Internal Medicine 02/10/21 Joseph Vasques Jr. [address] [place] [address] Urology 02/10/21 Telemetry Technician Relationship Specialty Start Date End Date Nico Lino, DO [address] [facility] [place] [address] PCP - General Internal Medicine 02/10/21 Joseph Vasques Jr. [address] [place] [address] Urology 02/10/21 Telemetry Technician Relationship Specialty Start Date End Date Nico Lino, DO [address] [facility] [place] [address] PCP - General Internal Medicine 02/10/21 Joseph Vasques Jr. [address] [place] [address] Urology 02/10/21 FOR RECORDS PERTAINING TO PATIENTS WHO ARE OR HAVE BEEN ENROLLED IN A CHEMICAL DEPENDENCY/SUBSTANCEABUSE PROGRAM, SOME INFORMATION MAY BE OMITTED. This clinical summary was aggregated from multiple sources. Caution should be exercised in using it in the provision of clinical care. This summary normalizes information from multiple sources, and as a consequence, information in this document may materially change the coding, format and clinical context of patient data. In addition, data may be omitted in some cases. CLINICAL DECISIONS SHOULD BE BASED ON THE PRIMARY CLINICAL RECORDS. [facility] [employer] [facility]. provides no warranty or guarantee of the accuracy or completeness of information in this document.
[2023-11-24 13:48] LABS: Estimated Average Glucose 177 mg/dL; Glycohemoglobin A1C 7.8 % (4.5-6.2)
== END 2023-11-24 12:22 | disposition home or self-care (01) ==
LOC: LAB 12:23
PROVIDERS: PCP Internal Medicine; Visit Provider Internal Medicine
DX: E11.65 Type 2 diabetes mellitus with hyperglycemia (principal)
CPT/HCPCS: 36415; 83036

== ENCOUNTER 2024-02-14 11:51 | Outpatient (OUT) | payer MEDICARE, SELFPAY ==
[2024-02-14 13:43] LABS: Prostate Specific Antigen Dx 0.61 ng/mL (<=4.00)
== END 2024-02-14 11:52 | disposition home or self-care (01) ==
LOC: LAB 11:53
PROVIDERS: PCP Internal Medicine; Visit Provider Radiology Radiation Oncology
DX: C61 Malignant neoplasm of prostate (principal)
CPT/HCPCS: 36415; 84153

== ENCOUNTER 2024-03-26 11:58 | Outpatient (OUT) | payer MEDICARE, SELFPAY ==
[2024-03-26 12:47] LABS: Estimated Average Glucose 163 mg/dL; Glycohemoglobin A1C 7.3 % (4.5-6.2)
== END 2024-03-26 11:59 | disposition home or self-care (01) ==
LOC: LAB 12:00
PROVIDERS: PCP Internal Medicine; Visit Provider Internal Medicine
DX: E11.65 Type 2 diabetes mellitus with hyperglycemia (principal)
CPT/HCPCS: 36415; 83036

== ENCOUNTER 2024-07-30 12:09 | Outpatient (OUT) | payer MEDICARE, SELFPAY ==
--- OUTSIDE RECORDS SUMMARY | 2024-07-30 12:16 | XMS_ITS | CCD ---
Author Organization [facility] Care Team Providers Care Scientific Informatics Project Leader Name Role Phone PHYSICIAN, DEFAULT Unavailable Unavailable PHYSICIAN, DEFAULT Unavailable Unavailable HOLLAND, NICO Unavailable Unavailable Nico Lino DO Primary Care Provider Joseph Vasques Jr. Unavailable Nico Lino DO Primary Care Provider Joseph Vasques Jr. Unavailable NICO LINO Primary Care Physician Nico Lino Unavailable HOLLAND, DR MAS Admitting Unavailable HOLLAND, DR MAS Attending Unavailable HOLLAND, DR MAS Primary Care Unavailable HOLLAND, DR MAS Consulting Unavailable HOLLAND, DR MAS Admitting Unavailable HOLLAND, DR MAS Attending Unavailable HOLLAND, DR MAS Primary Care Unavailable HOLLAND, DR MAS Consulting Unavailable ADOLFO, DR VICKI Delcid Admitting Unavailable ADOLFO, DR VICKI Delcid Attending Unavailable HOLLAND, DR MAS Primary Care Unavailable ADOLFO, DR VICKI Delcid Consulting Unavailable HOLLAND, DR MAS Primary Care Unavailable ANA ., CYNTHIA Admitting Unavailable ANA ., CYNTHIA Attending Unavailable GRECHJULIO ., HALLE CASTELLANOS Consulting Unavailevangelina e ADOLFO, DR VICKI Delcid Admitting Unavailable ADOLFO, DR VICKI Delcid Attending Unavailable HOLLAND, DR MAS Primary Care Unavailable BALL, DR MAS Admitting Unavailable BALL, DR MAS Attending Unavailable BALL, DR MAS Primary Care Unavailable HOLLAND, DR MAS Consulting Nico Gonzalez DO Primary Care Provider Yuan BARTLETT Referring Unavailable Yuan BARTLETT Attending Unavailable NICO LINO Primary Care Unavailable Yuan BARTLETT Attending Unavailable NICO LINO Primary Care Unavailable HENRIQUE LANDRUM Attending Unavailable CONCHITA KENNY Attending Unavailable HUMA BARBOSA Referring Unavailable Nico Lino MD Primary Care Provider Allergies Allergy Classification Reported Allergen(s) Allergy Type Date of Onset Reaction(s) Facility (1 source) Shellfish Containing Products Drug allergy (disorder) 9 [facility] Repository (3 sources) Seafood; Translations: [Seafood] Drug allergy Itching [facility] (1 source) patient allergy list reviewed by nurse or physicia Propensity to adverse reactions 5 Comment:Done [facility] Other (1 source) Shrimp product; Translations: [Shrimp] Propensity to adverse reactions (disorder) [facility] Repository (1 source) No Known Medication Allergies; Translations: [No Known Medication Allergies] Propensity to adverse reactions (disorder) [facility] Repository Medications Current Medications Medication Drug Class(es) Dates Sig (Normalized) Sig (Original) aspirin 81 mg delayed release oral tablet (13 sources) Platelet Aggregation Inhibitor, Nonsteroidal Anti-inflammatory Drug Start: 01-22-2021 aspirin, enteric coated (ASPIRIN, ENTERIC COATED) 81 mg EC tablet Take by mouth. 01/22/2021 Active Comment on above: Take by mouth. atenolol 50 mg oral tablet (14 sources) beta-Adrenergic Tatyana Start: 01-01-2024 take 1 tablet by mouth once daily Atenolol Active 0 .ROUTE .COMPLEX 90 January 01, 2024 9:26am TAKE 1 TABLET BY MOUTH EVERY DAY Start: 01-14-2021 End: 01-01-2024 atenolol (TENORMIN) 50 mg ta blet Take 50 mg by mouth. 01/14/2021 Active Comment on above: Take 50 mg by mouth. atorvastatin 80 mg oral tablet (16 sources) HMG-CoA Reductase Inhibitor Start: 01-14-2021 atorvastatin (LIPITOR) 40 mg tablet Take 40 mg by mouth. 01/14/2021 Active Start: 01-14-2021 End: 03-25-2024 take 1 tablet by mouth at bedtime atorvastatin (Lipitor) 80 MG tablet Take 80 mg by mouth at bedtime 03/25/2024 Active Comment on above: Take 80 mg by mouth. Take 40 mg by mouth. calcium carbonate 1500 mg / cholecalciferol 200 unt oral tablet (2 sources) Vitamin D Start: 06-16-20 take 1 tablet by mouth once daily calcium (as carbonate)-vitamin D 600 mg-200 units oral tablet 1 tab(s), Oral, Daily, Prophylaxis Start Date: 06/16/21 Status: Ordered cyanocobalamin, vitamin B-12, (VITAMIN B12 ORAL) (1 source) cyanocobalamin, vitamin B-12, (VITAMIN B12 ORAL) Take by mouth. 0 Active folic acid 1 mg oral tablet (7 sources) Start: 11-23-19 24 take 1 mg by mouth once daily Folic Acid Active 1 MG PO Daily November 23, 2023 1:00am glimepiride 4 mg oral tablet (15 sources) Sulfonylurea Start: 11-23-19 24 take 2 mg by mouth once daily in the morning Glimepiride Active 2 MG PO Every morning November 23, 2023 1:00am Start: 03-01-2021 glimepiride (A MARYL) 2 mg tablet 03/01/2021 Active Start: 01-14-2021 take 1 tablet by mouth once da kelsie glimepiride 1 mg Tab 1 mg = 1 tab(s), Oral, Daily, Refills(s) 0, Blood glucose Start Date: 01/14/21 Status: Ordered take 1 tablet by ruth ann th before breakfast glimepiride (Amaryl) 4 MG tablet TAKE 1 TABLET BY MOUTH IN THE MORNING 30 MINUTES BEFORE BREAKFAST Active Glimepiride 2 MG 1 1/2 tab, 30 minutes prior to bkfst Orally Once a day for 30 days Active ketorolac tromethamine 5 mg/ml ophthalmic solution (2 sources) Nonsteroidal Anti-inflammatory Drug, Cyclooxygenase Inhibitor Start: 07-02-2024 End: 08-01-2024 take 1 drop(s) into the eye(s) in the morning ketorolac (Acular) 0.5 % ophthalmic solution Indications: Age-related nuclear cataract of both eyes Administer 1 drop into affected eye(s) in the morning and 1 drop before bedtime. 5 mL 1 07/02/2024 08/01/2024 Active lisinopril 10 mg oral tablet (16 sources) Angiotensin Converting Enzyme Inhibitor Start: 01-01-2024 take 1 tablet by mouth once daily Lisinopril Active 0 .ROUTE .COMPLEX 90 January 01, 2024 9:26am TAKE 1 TABLET BY MOUTH EVERY DAY Start: 01-14-2021 End: 01-01-2024 lisinopril 10 MG tablet .Yorder PLEX 01/01/2024 Active Comment on above: Take 10 mg by mouth. loperamide hydrochloride 2 mg oral tablet (8 sources) Opioid Agonist Start: 06-16-2021 take 1 tablet by mouth every four hours as needed Immodium A-D 2 mg Tab 2 mg = 1 tab(s), Oral, q4hr, PRN for loose stool Start Date: 06/16/21 Status: Ordered loperamide HCl ( IMODIUM ORAL) Take by mouth. Active loperamide HCl ( IMODIUM ORAL) Take by mouth. 0 Active Comment on above: Take by mouth. metFORMIN hydrochloride 1000 mg oral tablet (11 sources) Biguanide Start: 11-23-2023 take 1000 mg by mouth twice daily at mealtime Metformin Active 1000 MG PO Twice daily with meals November 23, 2023 1:00am Start: 01-14-2021 End: 08-18-2022 take 1 tablet by mouth twice daily metformin 1000 mg oral tablet 1,000 mg = 1 tab(s), Oral, BID, Refills(s) 0, Blood glucose Start Date: 01/14/21 Status: Ordered take 1 tablet by ruth ann th every twenty-four hours metFORMIN HCl 1000 MG 1 tablet with a meal Orally Once a day Active Comment on above: twice daily. ofloxacin 3 mg/ml ophthalmic solution (2 sources) Quinolone Antimicrobial Start: End: take 1 drop(s) into the eye(s) five times daily ofloxacin (Ocuflox) 0.3 % ophthalmic solution Indications: Age-related nuclear cataract of both eyes Administer 1 drop into the right eye 5 (five) times a day for 1 day Starting 1 day before surgery, continue after surgery as directed 5 mL 1 07/02/2024 07/03/2024 Active prednisoLONE acetate 10 mg/ml ophthalmic suspension (3 sources) Corticosteroid Start: End: prednisoLONE acetate (Pred-Forte) 1 % ophthalmic suspension Indications: Age-related nuclear cataract of both eyes Administer 1 drop into both eyes in the morning and 1 drop at noon and 1 drop in the evening and 1 drop before bedtime. Do all this for 14 days. 5 mL 1 07/03/2024 07/17/2024 Active sertraline 100 mg oral tablet (15 sources) Serotonin Reuptake Inhibitor Start: sertraline (ZOLOFT) 100 mg tablet Take 100 mg by mouth. 01/14/2021 Active Comment on above: Take 100 mg by mouth . tamsulosin hydrochloride 0.4 mg oral capsule (6 sources) alpha-Adrenergic Tatyana Start: End: take 1 capsule by mouth once daily tamsulosin 0.4 mg Cap 0.4 mg = 1 cap(s), Oral, Daily, # 30 cap(s), Refills(s) 11, Pharmacy: [id number], 173, cm, 11/02/21 11:02:00 EST, Height/Length Dosing, 99.9, kg, 05/03/22 10:56:00 EDT, Weight Dosing Start Date: 06/09/22 Status: Ordered Comment on above: Take 0.4 mg by mouth once daily. vitamin B12 (1 source) Vitamin B12 Start: take 1 tablet under the tongue once daily Cyanocobalamin 1000 MCG 1 tablet under the tongue and allow to dissolve Sublingual Once a day for 90 days Jul, Active Completed/Discontinued Medications Medication Drug Class(es) Dates Sig (Normalized) Sig (Original) B-12 - up to 1000 mcg (4 [...] Provider) Comment on above: Take by mouth. Leuprolide (3 sources) Gonadotropin Releasing Hormone Receptor Agonist End: 08-17-2023 leuprolide acetate (LUPRON DEPOT INTRAMUSC.) Inject intramuscularly. 0 08/17/2023 Discontinued (Course of therapy completed) leuprolide aceta te (LUPRON DEPOT INTRAMUSC.) Inject intramuscularly. 0 Active Comment on above: Inject intramuscular ly. Problems Active Problems Problem Classification Problem Date Documented Da te Episodic/Chronic Acute bronchitis (1 source) Acute bronchitis; Translations: [Acute bronchitis due to other specified organisms] Episodic Anxiety disorders (7 sources) Generalized anxiety disorder; Translations: [Generalized anxiety disorder] Chronic Appendicitis and other appendiceal conditions (2 sources) Appendicitis 06-16-2021 Episodic Cancer of prostate (20 sources) Malignant tumor of prostate; Translations: [Malignant neoplasm of prostate] Onset: 02-17-2021 Chronic Cataract (4 sources) Bilateral age-related nuclear cataracts; Translations: [Age-related nuclear cataract, bilateral] Onset: 05-14-2024 07-02-2024 Chronic Coronary atherosclerosis and other heart disease (12 sources) Coronary occlusion; Translations: [Coronary arteriosclerosis] Onset: 06-24-2015 06-16-2021 Chronic Deficiency and other anemia (5 sources) 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; Translations: [Folate deficiency anemia, unspecified] Episodic Deficiency and other anemia (5 sources) Anemia; Translations: [Anemia, unspecified] Episodic Deficiency and other anemia (6 sources) Pernicious anemia; Translations: [Vitamin B12 deficiency anemia due to intrinsic factor deficiency] 11-23-2023 Episodic Deficiency and other anemia (2 sources) Vitamin B12 deficiency anemia due to intrinsic factor deficiency Episodic Deficiency and other anemia (1 source) Folate deficiency anemia, unspecified Episodic Deficiency and other anemia (1 source) Nutritional anemia; Translations: [Folate deficiency anemia, unspecified] 11-23-2023 Episodic Diabetes mellitus with complications (18 sources) Hyperglycemia due to type 2 diabetes mellitus; Translations: [Type 2 diabetes mellitus with hyperglycemia] Onset: 11-29-2022 Chronic Diabetes mellitus without complication (2 sources) Diabetes mellitus 06-16-2021 Chronic Disorders of lipid metabolism (15 sources) Pure hypercholesterolemia ; Translations: [Familial hypercholesterolemia ] Onset: 06-24-2015 Chronic E Codes: Cut/pierceb (1 source) Contact with other sharp object(s), not elsewhere classified, initial encounter; Translations: [[facility] OTH SHRP OB NOT ELSW CLASS INI] Onset: 01-09-2023 Episodic Essential hypertension (17 sources) Hypertensive disorder; Translations: [Essential hypertension] Onset: 06-24-2015 06-16-2021 Chronic Genitourinary symptoms and ill-defined conditions (2 sources) Urge incontinence of urine 01-14-2021 Chronic Hyperplasia of prostate (9 sources) Benign prostatic hypertrophy with outflow obstruction; [...] sources) H/O: high risk medication; Translations: [Other ocean transportation intermediary (current) drug therapy] Episodic Other aftercare (1 source) Other ocean transportation intermediary (current) drug therapy; Translations: [OTH MANAGER EMPLOYEE BENEFITS CURRENT DRUG THERAPY] Onset: 01-09-2023 Episodic Other aftercare (1 source) assisted (current) use of aspirin; Translations: [MANAGER EMPLOYEE BENEFITS CURRENT USE OF ASPIRIN] Onset: 01-09-2023 Episodic Other aftercare (1 source) intermodal dispatcher (current) use of oral hypoglycemic drugs; Translations: [MANAGER EMPLOYEE BENEFITS USE ORAL HYPOGLYCEMIC DX] Onset: 01-09-2023 Episodic Other aftercare (1 source) Long-term current use of drug therapy; Translations: [Other ocean transportation intermediary (current) drug therapy] Episodic Other diseases of kidney and ureters (1 source) Urinary tract obstruction; Translations: [Other obstructive and reflux uropathy] Onset: 11-01-2022 Episodic Other diseases of veins and lymphatics (6 sources) Peripheral venous insufficiency; Translations: [Venous insufficiency (chronic) (peripheral)] 11-23-2023 Episodic Other diseases of veins and lymphatics (3 sources) Venous insufficiency (chronic) (peripheral); Translations: [Venous (peripheral) insufficiency, unspecified] Episodic Other injuries and conditions due to [...] Spondylosis; intervertebral disc disorders; other back problems (2 sources) Low back pain 06-16-2021 Episodic Substance-related disorders [...] Test Name Value Interpretation Reference Range Facility Glucose mean value [Mass/vol ume] in Blood Estimated from glycated hemoglobinon 03-26-2024 Average glucose Estimated from glycated hemoglobin (Bld) [Mass/Vol] 163 mg/dL [facility] - Hematology and Cell countson 03-26-2024 HbA1c (Bld) [Mass fraction] 7.3 % High 4.5-6.2 [facility] Comment on above: ADA RECOMMENDED LIMI T 4.0 - 6.0ADA THERAPEUTIC TARGET < 7.0ACTION SUGGESTED> 7.0 Consultation Noteon 02-16-20 Consultation Note [id number] 1.00TIFF [facility] CNOVon 02-15-2024 CNOV Office Visit (RADTSA) SEGUN JOHNSON ([id number]) 1945 M Date Time Provider Department 02/15/24 10:00 AM Yuan BARTLTET During your visit today, we recorded the following information about you: Temperature Pulse Respiration Blood pressure 97.3 degrees 66/minute 18/minute 109/69 Weight 99.2 kg Venus Vasques MA 02/15/2024 9:49 AM Signed AUA=9 Yuan Bartlett MD 02/15/2024 11:26 AM Signed Radiation Oncology - Follow Up Note PATIENT NAME: Segun Johnson PATIENT DIAGNOSIS: Prostate adenocarcinoma, initial PSA 11.5, biopsy Ulen score 4 + 3 = 7 (grade [...] PSA HISTORY: PSA. (no units) Date Value 02/14/2024 0.61 04/04/2023 <0.13 07/29/2022 <0.13 02/16/2022 0.13 ALLERGIES No Known Allergies loperamide HCl (IMODIUM ORAL) Take by mouth. [...] aid urination: n - Total AUA Score: 9 Bowel movement frequency: 1/day Bowel movement quality: normal Blood per rectum: none ADT: Lupron for approximately 12 months currently off PHYSICAL EXAM: BP 109/69 Pulse 66 Temp 36.3 ?C (97.3 ?F) (Temporal) Resp 18 Wt 99.2 kg (218 lb 11.1 oz) BMI 31.83 kg/m? KPS: 100 General appearance: Alert and [...] s/p Pelvic radiation and prostate brachytherapy boost. Clinically doing well. He has been off of Lupron, PSA detectable but remains low. Likely small rise related to withdrawal effect. Recommend continued surveillance with PSA in 6 months. Signed by: Yuan Bartlett MD cc: Nico Lino ([facility]) [address] [place] [address] Dr. Storey Portions of the above note extracted and edited from previous visit as well as active information included in the EMR. Referring Provider: Yuan BARTLETT [[id number]] Allergies As of Date: 02/15/2024 (No Known Allergies) Date Reviewed: 02/15/2024 Reviewed by: Venus Vasques MA - Fully Assessed Reason for Visit: Prostate Cancer [590] Cmt: Follow up Primary Visit Diagnosis:Cancer of prostate w/med recur risk (T2b-c or Asaf 7 or PSA 10-20) (HCC) [C61] Order(s):PSA (OUTSIDE) [[id number]] Order #: [id number] PROSTATE-SPECIFIC ANTIGEN DIAGNOSTIC [SQPSA] Order #: [id number] FUTURE Prescriptions as of 02/15/2024 - cyanocobalamin, vitamin B-12, (VITAMIN B12 ORAL) Take by mouth. - loperamide HCl (IMODIUM ORAL) Take by [...] by mouth. Problem List As Of Date 02/15/2024 Noted Resolved Prostate cancer (HCC) [C61] 08/17/2022 Visit Notes: >> Venus Vasques MA [facility] February 15, 2024 9:47 AM Status: Signed AUA=9 Disposition: Return in about 6 months (around 08/17/2024). Follow-up and Disposition History for Encounter Date Provider Department Center 02/15/2024 [id number] BARTLETT Encounter Status:Closed by Yuan BARTLETT on 02/15/24 Normal [facility] No Panel Informationon 02-13 Prostate Specific Antigen Total 0.61 ng/mL <=4.00 [facility] PSA (OUTSIDE)on 02-14-2024 [facility] CNOVon 08-17-2023 CNOV Office Visit (RADTSA) SEGUN JOHNSON ([id number]) 1945 M Date Time Provider Department 08/17/23 10:15 AM Yuan BARTLETT RADTSA During your visit today, we recorded the following information about you: Temperature Pulse Respiration Blood pressure 96.9 degrees 62/minute 16/minute 156/75 Weight 104.8 kg Angélica Acharya RN 08/17/2023 10:17 AM Signed AUA 7 MARGOT Israel G Phillip, MD 08/17/2023 10:17 AM Signed Radiation Oncology - Follow Up Note PATIENT NAME: Segun Johnson PATIENT DIAGNOSIS: Prostate adenocarcinoma, initial PSA 11.5, biopsy Ulen score 4 + 3 = 7 (grade [...] 6 months with repeat PSA. Signed by: Yuan Bartlett MD cc: Nico Lino ([facility]) [address] [place] [id number] [address] Storey Portions of the above note extracted and edited from previous visit as well as active information included in the EMR. Allergies As of Date: 08/17/2023 (No Known Allergies) Date Reviewed: 08/17/2023 Reviewed by: Angélica Acharya RN - Fully Assessed Reason for Visit: Prostate Cancer [590] Primary Visit Diagnosis:Malignant neoplasm of prostate (HCC) [C61] Order(s):PSA (OUTSIDE) [[id number]] Order #: [id number] PSA/PROSTSPECAG DIAG [SQPSA] Order #: [id number] FUTURE Prescriptions as of 08/17/2023 - loperamide [...] (HCC) [C61] 08/17/2022 Visit Notes: >> Angélica Acharya RN [facility] Aug 17, 2023 10:07 AM Status: Signed AUA 7 Angélica Acharya RN Medications Discontinued During This Encounter Prescriptions - tamsulosin (FLOMAX) 0.4 mg (Discontinued) Take 0.4 mg by mouth once daily. - leuprolide acetate (LUPRON DEPOT INTRAMUSC.) (Discontinued) Inject intramuscularly. Disposition: Return in about 6 months (around 02/15/2024). Follow-up and Disposition History for Encounter Date Provider Department Center 08/17/2023 [id number] BARTLETT Encounter Status:Closed by Yuan BARTLETT on 08/17/23 Normal [facility] GLYCOHEMOGLOBIN A1Con 2022 ADA RECOMMENDATION SEE BELOW Normal [facility] Comment on above: Result Comment: ADA RECOMMENDED LIMIT 4.0 - 6.0 ADA THERAPEUTIC TARGET < 7.0 ACTION SUGGESTED > 7.0 Performed By: #### A 1C #### [facility] [address] [place] [address] Dr. Radha Brown Glucose [Mass/Vol] 186 mg/dL Normal [facility] Comment on above: Performed By: #### A 1C #### [facility] [address] [place] [address] Dr. Radha Brown HbA1c (Bld) [Mass fraction] 8.1 % Critically high 4.5-6.2 [facility] Comment on above: Performed By: #### A 1C #### [facility] [address] [place] [address] Dr. Radha Brown CBC AUTO DIFFon 07-29-2022 BASO # 0.1 103/ul Normal 0.0-0.1 [facility] Comment on above: Performed By: #### C BC #### [facility] [address] [place] [address] Dr. Radha Brown Basophils/100 WBC (Bld) 0.9 % Normal 0.2-2.0 [facility] Comment on above: Performed By: #### C BC #### [facility] [address] [place] [address] Dr. Radha Brown EO # 0.5 103/ul Normal 0.0-0.7 [facility] Comment on above: Performed By: #### C BC #### [facility] [address] [place] [address] Dr. Radha Brown Eosinophils/100 WBC (Bld) 5.5 % Normal 0.9-7.0 [facility] Comment on above: Performed By: #### C BC #### [facility] [address] [place] [address] Dr. Radah Brown Erythrocyte distribution width (RBC) [Ratio] 15.0 % Normal 11.0-15.0 [facility] Comment on above: Performed By: #### C BC #### [facility] [address] [place] [address] Dr. Radha Brown Hematocrit (Bld) [Volume fraction] 35.6 % Critically low 42.0-54.0 [facility] Comment on above: Performed By: #### C BC #### [facility] [address] [address] [address] Radha Brown Hemoglobin (Bld) [Mass/Vol] 11.8 g/dL Critically low 14.0-18.0 [facility] Comment on above: Performed By: #### C BC #### [facility] [address] [address] [address] Radha Brown IG # 0.05 10e3/ul Critically high 0.00-0.03 [facility] Comment on above: Performed By: #### C BC #### [facility] [address] [address] [address] Radha Brown IG % 0.5 % Normal 0.0-0.5 [facility] Comment on above: Performed By: #### C BC #### [facility] [address] [address] [address] Radha Brown LYMPH # 1.8 103/ul Normal 1.2-3.8 [facility] Comment on above: Performed By: #### C BC #### [facility] [address] [address] [address] Radha Brown Lymphocytes/100 WBC (Bld) 19.3 % Critically low 20.5-60.0 [facility] Comment on above: Performed By: #### C BC #### [facility] [address] [address] [address] Radha Brown MANUAL DIFF REQ NO Normal [facility] Comment on above: Performed By: #### C BC #### [facility] [address] [address] [address] Radha Brown MCH (RBC) [Entitic mass] 29.2 pg Normal 25.9-34.0 [facility] Comment on above: Performed By: #### C BC #### [facility] [address] [address] [address] Radha Brown MCHC (RBC) [Mass/Vol] 33.1 g/dL Normal 29.9-35.2 [facility] Comment on above: Performed By: #### C BC #### [facility] [address] [address] [address] Radha Brown MCV (RBC) [Entitic vol] 88.1 fL Normal 80.0-94.0 [facility] Comment on above: Performed By: #### C BC #### [facility] [address] [address] [address] Radha Brown MONO # 0.6 103/ul Normal 0.3-0.8 [facility] Comment on above: Performed By: #### C BC #### [facility] [address] [address] [address] Radha Brown Monocytes/100 WBC (Bld) 6.4 % Normal 1.7-12.0 [facility] Comment on above: Performed By: #### C BC #### [facility] [address] [place] [address] Dr. Radha Brown NEUT # 6.4 103/ul Normal 1.4-6.5 [facility] Comment on above: Performed By: #### C BC #### [facility] [address] [place] [address] Dr. Radha Brown Neutrophils/100 WBC (Bld) 67.4 % Normal 43.0-75.0 [facility] Comment on above: Performed By: #### C BC #### [facility] [address] [place] [address] Dr. Radha Brown Platelet mean volume (Bld) [Entitic vol] 9.2 fL Critically low 9.5-13.5 [facility] Comment on above: Performed By: #### C BC #### [facility] [address] [place] [address] Dr. Radha Brown PLT 232 103/ul Normal 150-450 [facility] Comment on above: Performed By: #### C BC #### [facility] [address] [place] [address] Dr. Radha Brown RBC 4.04 106/ul Critically low 4.70-6.10 [facility] Comment on above: Performed By: #### C BC #### [facility] [address] [address] [address] Radha Brown WBC 9.5 103/ul Normal 4.0-11.0 [facility] Comment on above: Performed By: #### C BC #### [facility] [address] [place] [address] Dr. Radha Brown FERRITINon 07-29-2022 Ferritin [Mass/Vol] 164.0 ng/mL Normal 26.0-388.0 [facility] Comment on above: Performed By: #### P SAD, FOL, FERR, FETIBC #### [facility] [address] [place] [address] Dr. Radha Brown FOLATEon 07-29-2022 FOLATE 7.60 ng/mL Critically low 8.60-58.90 [facility] Comment on above: Performed By: #### P SAD, FOL, FERR, FETIBC #### [facility] [address] [place] [address] Dr. Radha Brown GLYCOHEMOGLOBIN A1Con 2021 ADA RECOMMENDATION SEE BELOW Normal [facility] Comment on above: Result Comment: ADA RECOMMENDED LIMIT 4.0 - 6.0 ADA THERAPEUTIC TARGET < 7.0 ACTION SUGGESTED > 7.0 Performed By: #### A 1C #### [facility] [address] [place] [address] Dr. Radha Brown Glucose [Mass/Vol] 134 mg/dL Normal [facility] Comment on above: Performed By: #### A 1C #### [facility] [address] [place] [address] Dr. Radha Brown HbA1c (Bld) [Mass fraction] 6.3 % Critically high 4.5-6.2 [facility] Comment on above: Performed By: #### A 1C #### [facility] [address] [place] [address] Dr. Radha Brown IRON AND TIBCon 07-29-2022 % SATURATION 22.1 % Normal [facility] Comment on above: Performed By: #### P SAD, FOL, FERR, FETIBC #### [facility] [address] [place] [address] Dr. Radha Brown Iron [Mass/Vol] 78.0 ug/dL Normal 65.0-175.0 [facility] Comment on above: Performed By: #### P SAD, FOL, FERR, FETIBC #### [facility] [address] [address] [address] Radha Brown TIBC DIRECT 353.0 ug/dL Normal 250.0-450.0 [facility] Comment on above: Performed By: #### P SAD, FOL, FERR, FETIBC #### [facility] [address] [address] [address] Radha Brown LIPID PROFILEon 07-29-2022 CHOL-HDL RATIO NORM SEE BELOW Normal [facility] Comment on above: Result Comment: 3.3 - 4.4 LOW RISK 4.4 - 7.1 AVERAGE RISK 7.1 - 11.0 MODERATE RISK >11.0 HIGH RISK Performed By: #### P SAD, FOL, FERR, FETIBC #### [facility] [address] [address] [address] Radha Brown Cholesterol [Mass/Vol] 137 mg/dL Normal <=200 [facility] Comment on above: Performed By: #### P SAD, FOL, FERR, FETIBC #### [facility] [address] [address] [address] Radha Brown Cholesterol in HDL [Mass/Vol] 37 mg/dL Critically low 40-60 [facility] Comment on above: Performed By: #### P SAD, FOL, FERR, FETIBC #### [facility] [address] [address] [address] Radha Brown Cholesterol in LDL [Mass/Vol] 67.0 mg/dL Normal [facility] Comment on above: Performed By: #### P SAD, FOL, FERR, FETIBC #### [facility] [address] [address] [address] Radha Brown Cholesterol.total/Cho lesterol in HDL [Mass ratio] 3.7 {ratio} Normal [facility] Comment on above: Performed By: #### P SAD, FOL, FERR, FETIBC #### [facility] [address] [address] [address] Radha Brown HDL NORMAL > or = 60 mg/dl - LOW CARDIOVASCULAR RISK <40 mg/dl - HIGH CARDIOVASCULAR RISK Normal [facility] Comment on above: Performed By: #### P SAD, FOL, FERR, FETIBC #### [facility] [address] [address] [address] Radha Brown LDL CALC NORMAL SEE BELOW Normal [facility] Comment on above: Result Comment: <100 mg/dl OPTIMAL 100 - 129 mg/dl NEAR OR ABOVE OPTIMAL 130 - 159 mg/dl BORDERLINE HIGH 160 - 189 mg/dl HIGH >190 mg/dl VERY HIGH Performed By: #### P SAD, FOL, FERR, FETIBC #### [facility] [address] [place] [address] Dr. Radha Brown Triglyceride [Mass/Vol] 165 mg/dL Critically high <=150 [facility] Comment on above: Performed By: #### P SAD, FOL, FERR, FETIBC #### [facility] [address] [place] [address] Dr. Radha Brown VLDL CALC 33.0 mg/dL Normal [facility] Comment on above: Performed By: #### P SAD, FOL, FERR, FETIBC #### [facility] [address] [place] [address] Dr. Radha Brown MICROALBUMIN, RAND URon 07-19 mALB <1.3 Normal <=30.0 [facility] Comment on above: Performed By: #### M ALBR #### [facility] [address] [place] [address] Dr. Radha Brown PROF CHEM 8 (BAS METB)on Anion gap [Moles/Vol] 9.1 mmol/L Normal [facility] Comment on above: Performed By: #### P SAD, FOL, FERR, FETIBC #### [facility] [address] [place] [address] Dr. Radha Brown Calcium [Mass/Vol] 8.6 mg/dL Normal 8.5-10.1 [facility] Comment on above: Performed By: #### P SAD, FOL, FERR, FETIBC #### [facility] [address] [address] [address] Radha Brown Chloride [Moles/Vol] 106 mmol/L Normal 98-107 [facility] Comment on above: Performed By: #### P SAD, FOL, FERR, FETIBC #### [facility] [address] [place] [address] Dr. Radha Brown CO2 [Moles/Vol] 27.1 mmol/L Normal 21.0-32.0 [facility] Comment on above: Performed By: #### P SAD, FOL, FERR, FETIBC #### [facility] [address] [place] [address] Dr. Radha Brown Creatinine [Mass/Vol] 1.19 mg/dL Normal 0.70-1.30 [facility] Comment on above: Performed By: #### P SAD, FOL, FERR, FETIBC #### [facility] [address] [place] [address] Dr. Radha Brown EGFR-AF AFGHAN >60 Normal >=60 [facility] Comment on above: Performed By: #### P SAD, FOL, FERR, FETIBC #### [facility] [address] [place] [address] Dr. Radha Brown EGFR-NON AF AFGHAN 59 mL/min/1.73m2 Critically low >=60 [facility] Comment on above: Performed By: #### P SAD, FOL, FERR, FETIBC #### [facility] [address] [place] [address] Dr. Radha Brown Glucose [Mass/Vol] 137 mg/dL Critically high 74-106 [facility] Comment on above: Performed By: #### P SAD, FOL, FERR, FETIBC #### [facility] [address] [place] [address] Dr. Radha Brown Potassium [Moles/Vol] 4.2 mmol/L Normal 3.5-5.1 [facility] Comment on above: Performed By: #### P SAD, FOL, FERR, FETIBC #### [facility] [address] [address] [address] Radha Brown Sodium [Moles/Vol] 138 mmol/L Normal 136-145 [facility] Comment on above: Performed By: #### P SAD, FOL, FERR, FETIBC #### [facility] [address] [address] [address] Radha Brown Urea nitrogen [Mass/Vol] 22.0 mg/dL Critically high 7.0-18.0 [facility] Comment on above: Performed By: #### P SAD, FOL, FERR, FETIBC #### [facility] [address] [place] [address] Dr. Radha Brown Urea nitrogen/Creatinine [Mass ratio] 18.5 mg/mg Normal [facility] Comment on above: Performed By: #### P SAD, FOL, FERR, FETIBC #### [facility] [address] [place] [address] Dr. Radha Brown GLYCOHEMOGLOBIN A1Con 2021 ADA RECOMMENDATION SEE BELOW Normal [facility] Comment on above: Result Comment: ADA RECOMMENDED LIMIT 4.0 - 6.0 ADA THERAPEUTIC TARGET < 7.0 ACTION SUGGESTED > 7.0 Performed By: #### A 1C #### [facility] [address] [place] [address] Dr. Radha Brown Glucose [Mass/Vol] 154 mg/dL Normal [facility] Comment on above: Performed By: #### A 1C #### [facility] [address] [place] [address] Dr. Radha Brown HbA1c (Bld) [Mass fraction] 7.0 % Critically high 4.5-6.2 [facility] Comment on above: Performed By: #### A 1C #### [facility] [address] [place] [address] Dr. Radha Brown Vital Signs Date Time Vital Sign Value Performing Clinician Facility 03-27-2024 11:06-0400 Body height 175.26 cm [facility] 03-27-2024 [id number] Body mass index (BMI) [Ratio] 32.3 kg/m2 [facility] 03-27-2024 11:06-0400 Body weight 99.33 kg [facility] 03-27-2024 11:06-0400 Diastolic blood pressure 64 mm[Hg] [facility] 03-27-2024 11:06-0400 Heart rate 72 /min [facility] 03-27-2024 11:06-0400 Respiratory rate 20 /min [facility] 03-27-2024 11:06-0400 Systolic blood pressure 98 mm[Hg] [facility] 02-15-2024 09:44-0400 Body mass index (BMI) [Ratio] 31.83 kg/m2 ANATOLY Bartlett MD Work Phone: [facility] 02-15-2024 09:44-0400 Body temperature 97.3 [degF] ANATOLY Bartlett MD Work Phone: [facility] 02-15-2024 09:44-0400 Body weight 99.2 kg ANATOLY Bartlett MD Work Phone: [facility] 02-15-2024 09:44-0400 Diastolic blood pressure 69 mm[Hg] ANATOLY Bartlett MD Work Phone: [facility] 02-15-2024 09:44-0400 Heart rate 66 /min ANATOLY Bartlett MD Work Phone: [facility] 02-15-2024 09:44-0400 Respiratory rate 18 /min ANATOLY Bartlett MD Work Phone: [facility] 02-15-2024 09:44-0400 Systolic blood pressure 109 mm[Hg] ANATOLY Bartlett MD Work Phone: [facility] 08-17-2023 10:03-0500 Body temperature 96.91 [degF] ANATOLY Bartlett MD Work Phone: [facility] 08-17-2023 10:03-0500 Body weight 104.78 kg ANATOLY Bartlett MD Work Phone: [facility] 08-17-2023 10:03-0500 Diastolic blood pressure 75 mm[Hg] ANATOLY Bartlett MD Work Phone: [facility] 08-17-2023 10:03-0500 Heart rate 62 /min ANATOLY Bartlett MD Work Phone: [facility] 08-17-2023 10:03-0500 Respiratory rate 16 /min ANATOLY Bartlett MD Work Phone: [facility] 08-17-2023 10:03-0500 SaO2% (BldA) [Mass fraction] 95 % ANATOLY Bartlett MD Work Phone: [facility] 08-17-2023 10:03-0500 Systolic blood pressure 156 mm[Hg] ANATOLY Bartlett MD Work Phone: [facility] 07-26-2023 11:00-0500 Body height 175.26 cm Nico Ball Other [facility] Other 07-26-2023 11:00-0500 Body mass index (BMI) [Ratio] 33.37 kg/m2 Nico Ball Other [facility] Other 07-26-2023 11:00-0500 Body weight 102.51 kg Nico Ball Other [facility] Other 07-26-2023 11:00-0500 Diastolic blood pressure 83 mm[Hg] Nico Ball Other [facility] Other 07-26-2023 11:00-0500 Respiratory rate 12 /min Nico Ball Other [facility] Other 07-26-2023 11:00-0500 Systolic blood pressure 133 mm[Hg] Nico Ball Other [facility] Other 11-29-2022 14:30-0400 Body height 175.26 cm Nico Ball Other [facility] Other 11-29-2022 14:30-0400 Body mass index (BMI) [Ratio] 34.58 kg/m2 Nico Ball Other [facility] Other 11-29-2022 14:30-0400 Body weight 106.23 kg Nico Ball Other [facility] Other 11-29-2022 14:30-0400 Diastolic blood pressure 71 mm[Hg] Nico Ball Other [facility] Other 11-29-2022 14:30-0400 Respiratory rate 12 /min Nico Ball Other [facility] Other 11-29-2022 14:30-0400 Systolic blood pressure 118 mm[Hg] Nico Ball Other [facility] Other 11-01-2022 11:22-0500 Blood Pressure Location HENRIQUE DIALLO [facility] 11-01-2022 11:22-0500 Diastolic blood pressure 80 mm[Hg] HENRIQUE DIALLO [facility] 11-01-2022 11:22-0500 Heart rate 68 /min HENRIQUE DIALLO [facility] 11-01-2022 11:22-0500 Respiratory rate 16 /min HENRIQUE DIALLO [facility] 11-01-2022 11:22-0500 Systolic blood pressure 137 mm[Hg] HENRIQUE DIALLO [facility] 08-18-2022 10:22-0500 Body temperature 96.21 [degF] ANATOLY Bartlett MD Work Phone: [facility] 08-18-2022 10:22-0500 Body weight 105.23 kg ANATOLY Bartlett MD Work Phone: [facility] 08-18-2022 10:22-0500 Diastolic blood pressure 55 mm[Hg] ANATOLY Bartlett MD Work Phone: [facility] 08-18-2022 10:22-0500 Heart rate 78 /min ANATOLY Bartlett MD Work Phone: [facility] 08-18-2022 10:22-0500 Respiratory rate 18 /min ANATOLY Bartlett MD Work Phone: [facility] 08-18-2022 10:22-0500 SaO2% (BldA) [Mass fraction] 98 % ANATOLY Bartlett MD Work Phone: [facility] 08-18-2022 10:22-0500 Systolic blood pressure 125 mm[Hg] ANATOLY Bartlett MD Work Phone: [facility] 02-17-2022 09:51-0400 Body temperature 96.1 [degF] ANATOLY Bartlett MD Work Phone: [facility] 02-17-2022 09:51-0400 Body weight 100.7 kg ANATOLY Bartlett MD Work Phone: [facility] 02-17-2022 09:51-0400 Diastolic blood pressure 75 mm[Hg] ANATOLY Bartlett MD Work Phone: [facility] 02-17-2022 09:51-0400 Heart rate 66 /min ANATOLY Bartlett MD Work Phone: [facility] 02-17-2022 09:51-0400 Respiratory rate 16 /min ANATOLY Bartlett MD Work Phone: [facility] 02-17-2022 09:51-0400 SaO2% (BldA) [Mass fraction] 97 % ANATOLY Bartlett MD Work Phone: [facility] 02-17-2022 09:51-0400 Systolic blood pressure 120 mm[Hg] ANATOLY Bartlett MD Work Phone: [facility] Encounters Encounter Date Encounter Type Care Provider Facility Start: 07-03-2024 End: 07-03-2024 Refill Conchita Kenny DO Work Phone: [facility] Comment on above: Age-related nuclear cataract of both eyes Start: 07-02-2024 End: 07-02-2024 Refill Conchita Kenny DO Work Phone: [facility] Comment on above: Age-related nuclear cataract of both eyes (Primary Dx) Start: 05-14-2024 End: 05-14-2024 ambulatory CONCHITA KENNY Not Available Start: 03-27-2024 End: 03-27-2024 ambulatory [facility] Work Phone: Start: 03-27-2024 End: 03-27-2024 Patient encounter procedure [facility] Work Phone: Start: 03-26-2024 Non-patient / Non-visit [facility] Work Phone: Start: 03-05-2024 End: 03-05-2024 ambulatory HENRIQUE LANDRUM Facility:[facility] Start: 03-05-2024 End: 03-05-2024 Patient encounter procedure HENRIQUE LANDRUM [facility] Start: 02-15-2024 End: 02-15-2024 ambulatory Yuan BARTLETT Facility:[facility] Start: 02-15-2024 End: 02-15-2024 Patient encounter procedure Yuan Bartlett MD Work Phone: Radiation Oncology Comment on above: Cancer of prostate w /med recur risk (T2b-c or Asaf 7 or PSA 10-20) (HCC) (Primary Dx) Start: 02-14-2024 Non-patient / Non-visit [facility] Work Phone: Start: 08-17-2023 End: 08-17-2023 ambulatory Yuan BARTLETT Facility:[facility] Start: 08-17-2023 End: 08-17-2023 Patient encounter procedure Yuan Bartlett MD Work Phone: Radiation Oncology Comment on above: Malignant neoplasm o f prostate (HCC) (Primary Dx) Start: 07-26-2023 End: 07-26-2023 ambulatory Nico Lino Other [facility] Other Start: 07-26-2023 Patient encounter procedure Nico Lino [facility] Start: 07-17-2023 End: 07-17-2023 ambulatory Nico Lino Other [facility] Other Start: 07-17-2023 Telephone encounter Nico MERAZ [facility] Start: 04-04-2023 End: 04-04-2023 ambulatory Nico Lino Other [facility] Other Start: 04-04-2023 Telephone encounter Nico MERAZ [facility] Start: 01-05-2023 End: 01-05-[address] NICO LINO Facility: Start: 11-29-2022 End: 11-30-[address] NICO LINO [employer] Other Start: 11-29-2022 Office outpatient vi sit 25 minutes Nico Lino [facility] Start: 11-01-2022 End: 11-01-2022 Patient encounter procedure HENRIQUE LANDRUM [facility] Start: 08-18-2022 End: 08-18-2022 ambulatory Irlanda Castro APRN.[employer] Work Phone: Hematology/Oncology Comment on above: Prostate cancer (HCC ) Start: 08-18-2022 End: 08-18-2022 Patient encounter procedure Irlanda Castro APRN.CNP Work Phone: [facility] Comment on above: Prostate cancer (HCC ) (Primary Dx) Start: 07-29-2022 End: 07-30-[address] NICO LINO Facility:[facility] Start: 07-25-2022 Adult health examination Nico Lino Other [facility] Other Start: 02-17-2022 End: 02-17-2022 Patient encounter procedure Yuan Bartlett MD Work Phone: Radiation Oncology Comment on above: Prostate cancer (HCC ) (Primary Dx) Start: 02-16-2022 End: 02-17-[address] NICO LINO Facility:[facility] Start: 01-16-[address] VICKI BARTLETT Fac ility:[facility] Start: 08-05-2021 End: 08-05-2021 Subsequent hospital visit by physician [facility] Scan [facility] Work Phone: Radiology [facility] Start: 07-19-2021 End: 07-19-2021 Pre-procedure evaluation check Nico Lino Other [facility] Other Start: 10-24-2014 End: 10-25-2014 Patient encounter DEFAULT PHYSICIAN Facility:[facility] Procedures Date Procedure Procedure Detail Performing Clinician Start: 02-14-2024 PSA screening Yuan Bartlett MD Work Phone: Start: 04-04-2023 PSA screening [facility] Start: 07-29-2022 End: 07-29-2022 PSA screening [facility] Provider Comment on above: Performed By: #### P SAD, FOL, FERR, FETIBC #### [facility] [address] [address] [address] Radha Brown Start: 02-17-2022 Adult depression scr eening assessment ANATOLY Bartlett MD Work Phone: Start: 02-16-2022 End: 02-16-2022 PSA screening [facility] Provider Comment on above: Performed By: #### P SAD #### [facility] [address] [address] [address] Radha Brown Start: 07-07-2021 Brachytherapy implan t (physical object) HENRIQUE LANDRUM Start: 01-29-2021 Biopsy of prostate REVA LANDRUM Start: 09-18-2017 Colonoscopy HENRIQUE CARPENTER Start: 06-09-2016 General examination of patient Nico Lino Other Start: 06-09-2016 Screening for malign ant neoplasm of colon Nico Lino Other Start: 06-24-2015 Screening for malign ant neoplasm of prostate Nico Lino Other Angioplasty of blood vessel HENRIQUE LANDRUM Appendectomy HENRIQUE LANDRUM Depression screening Jena Lino Other Screening for malign ant neoplasm of prostate Nico Lino Other Plan of Treatment Date Care Activity Detail Author Start: 01-05-2033 Urine microalbumin profile DTaP,Tdap,Td Vaccine (2 - Td or Tdap) [facility] Start: 08-17-2024 End: 11-16-2024 Prostate specific Ag [Mass/volume] in Serum or Plasma PROSTATE-SPECIFIC ANTIGEN DIAGNOSTIC Lab Routine Cancer of prostate w/med recur risk (T2b-c or Ulen 7 or PSA 10-20) (HCC) Expected: 08/17/2024, Expires: 11/16/2024 [facility] Work Phone: Comment on above: Expected: 08/17/2024 , Expires: 11/16/2024 Start: 08-08-2024 End: 08-08-2024 Patient encounter procedure 08/08/2024 9:15 AM EST Office Visit Radiation Oncology [facility] [place] [address] Yuan Bartlett MD [facility] [place] [address] 6 month rv Radiation Oncology Comment on above: 6 month rv Start: 07-31-2024 Diabetes Screening Diabetes Screenin yuan [facility] Start: 05-19-2024 Covid-19 Vaccine () Covid-19 Vaccine () [facility] Start: 05-19-2024 Influenza vaccination Influenza Vacc ine (#1) [facility] Start: 02-15-2024 End: 05-16-2024 Prostate specific Ag [Mass/volume] in Serum or Plasma PSA/PROSTSPECAG DIAG Lab Routine Malignant neoplasm of prostate (HCC) Expected: 02/15/2024 (Approximate), Expires: 05/16/2024 [facility] Work Phone: Comment on above: Expected: 02/15/2024 (Approximate), Expires: 05/16/2024 Start: 10-14-2023 Covid-19 Vaccine () Covid-19 Vaccine () [facility] Start: 09-18-2023 Advance Directive Discussion Advance Directive Discussion [facility] Start: 09-18-2023 Behavioral Health Screening Behavioral Health Screening [facility] Start: 08-18-2023 End: 10-18-2023 Prostate specific Ag [Mass/volume] in Serum or Plasma PSA/PROSTSPECAG DIAG Lab Routine Prostate cancer (HCC) Expected: 08/18/2023, Expires: 10/18/2023 [facility] Work Phone: Comment on above: Expected: 08/18/2023 , Expires: 10/18/2023 Start: 02-17-2023 Adult depression screening assessment DEPRESSION SCREENING [facility] Start: 09-18-2022 Advance Directive Discussion Advance Directive Discussion [facility] Start: 09-18-2022 Depression Assessment Depression Ass essment [facility] Start: 08-19-2022 End: 10-19-2022 Prostate specific Ag [Mass/volume] in Serum or Plasma PSA/PROSTSPECAG DIAG Lab Routine Prostate cancer (HCC) Expected: 08/19/2022 (Approximate), Expires: 10/19/2022 [facility] Work Phone: Comment on above: Expected: 08/19/2022 (Approximate), Expires: 10/19/2022 Start: 09-18-2021 ADVANCE DIRECTIVE DISCUSSION ADVANCE DIRECTIVE DISCUSSION [facility] Start: 09-18-2021 DEPRESSION ASSESSMENT DEPRESSION ASS ESSMENT [facility] Start: 05-03-2021 COVID-19 VACCINE (3 - Booster for Moderna series) COVID-19 VACCINE (3 - Booster for Moderna series) [facility] Start: 2020 RSV Vaccine (1 - 1-d ose 75+ series) RSV Vaccine (1 - 1-dose 75+ series) [facility] Start: 10-04-2019 Pneumococcal Vaccine : 65+ (2 - PCV) Pneumococcal Vaccine: 65+ (2 - PCV) [facility] Start: 10-04-2019 Pneumococcal Vaccine : 65+ (2 of 2 - PCV) Pneumococcal Vaccine: 65+ (2 of 2 - PCV) [facility] Start: 10-04-2019 PNEUMOCOCCAL: 65+ (2 - PCV) PNEUMOCOCCAL: 65+ (2 - PCV) [facility] Start: 2005 RSV Vaccine (1 - 1-d ose 60+ series) RSV Vaccine (1 - 1-dose 60+ series) [facility] Start: 1995 SHINGRIX VACCINE (1 of 2) SHINGRIX VACCINE (1 of 2) [facility] Start: 1990 DIABETES SCREEN DIABETES SCREEN [facility] Start: 1964 SHINGRIX VACCINE (1 of 2) SHINGRIX VACCINE (1 of 2) [facility] Start: 1964 Urine microalbumin profile DTAP,TDAP,TD (1 - Tdap) [facility] Start: 1963 Anxiety Screening Anxiety Screening [facility] Start: 1963 Depression Screening Depression Scre ening [facility] Start: 1963 HEPATITIS C SCREENING HEPATITIS C [facility] Start: 1963 Hepatitis C screening Hepatitis C [facility] Immunizations Immunization Date Immunization Notes Care Provider Mak loya 06-14-2023 COVID-19 Vaccine Pfi zer - Documentation Purposes Only Nico Lino Other [facility] 06-14-2023 Flu Shot - Documentation Purposes Only Nico Lino Other [facility] Other 06-14-2023 influenza virus vaccine, unspecified formulation Pet Work Phone: [facility] 01-05-2023 tetanus toxoid, redu doni diphtheria toxoid, and acellular pertussis vaccine, adsorbed Nico Lino Other [facility] Other 07-25-2022 influenza (aIIV4) vaccine, age 65+ yr, quadrivalent, PF (FLUAD QUAD) ANATOLY Bartlett MD Work Phone: [facility] 07-25-2022 influenza virus vaccine, split virus (incl. purified surface antigen) Nico Lino Other [facility] Other 07-25-2022 influenza virus vaccine, unspecified formulation HENRIQUE LANDRUM [facility] 07-23-2022 SARS-CoV-2 (COVID-19 ) [id number] HENRIQUE LANDRUM [facility] 05-05-2022 SARS-CoV-2 mRNA ([id number] se) vaccine HENRIQUE LANDRUM [facility] 06-10-2021 influenza nasal, unspecified formulation ANATOLY Bartlett MD Work Phone: [facility] 06-10-2021 influenza virus vaccine, split virus (incl. purified surface antigen) Nico Lino Other [facility] [email or web address] Other 06-10-2021 influenza virus vaccine, unspecified formulation HENRIQUEFRANK LANDRUM [facility] 06-10-2021 Seasonal trivalent influenza vaccine, adjuvanted, preservative free ANATOLY Bartlett MD Work Phone: [facility] 12-01-2020 COVID-19 vaccine, fu ll dose (MODERNA) ANATOLY Bartlett MD Work Phone: [facility] 11-05-2020 COVID-19 vaccine, fu ll dose (MODERNA) ANATOLY Bartlett MD Work Phone: [facility] 07-09-2020 influenza virus vaccine, split virus (incl. purified surface antigen) Nico Lino Other [facility] [email or web address] Other 07-09-2020 influenza virus vaccine, unspecified formulation [facility] 06-04-2019 influenza nasal, unspecified formulation ANATOLY Bartlett MD Work Phone: [facility] 06-04-2019 influenza virus vaccine, unspecified formulation HENRIQUE LANDRUM [facility] 06-04-2019 Seasonal trivalent influenza vaccine, adjuvanted, preservative free ANATOLY Bartlett MD Work Phone: [facility] 10-04-2018 pneumococcal Conjuga te, unspecified formulation; Translations: [Need for prophylactic vaccination against Streptococcus pneumoniae (pneumococcus)] Nico Lino Other [facility] [email or web address] Other 10-04-2018 pneumococcal polysaccharide vaccine, 23 valent ANATOLY Bartlett MD Work Phone: [facility] 06-24-2015 influenza virus vaccine, split virus (incl. purified surface antigen) Nico Lino Other [facility] [email or web address] Other 06-24-2015 influenza virus vaccine, unspecified formulation [facility] 06-24-2015 pneumococcal conjuga te vaccine, 13 valent Nico Lino Other [facility] Payers Date Payer Category Payer Medicaid [employer] MEDICARE A DVANTAGE [id number] 2020 Unknown 2020 Unknown MMO MMO [employer] NAL [id number] 2020-Present [phone] [address] [place] [address] Indemnity [id number] 2011 Medicare MEDICARE MEDICAR E A AND B [id number] 2011-Present [phone] [place] [address] Medicare [id number] 2011 Medicare [id number] 1959 Medicare [id number] 1959 Medicare [id number] 1959 Self-pay [id number] 1959 Unknown [id number] 1945 Unknown [id number] 1945 Unknown [id number] 1945 Unknown [id number] 1945 Unknown [id number] 1945 Unknown [id number] 1945 Unknown [id number] 1945 Unknown [id number] 1945 Unknown [id number] Social History Date Type Detail Facility Start: 03-03-2021 End: 05-14-2024 Tobacco smoking status NHIS Ex-smoker [facility] Start: 03-03-1957 End: 03-03-1961 History of tobacco use Current smoker [facility] Start: 03-03-2021 End: 05-14-2024 Cigarettes smoked current (pack per day) - Reported 0.5 [facility] Start: 03-03-2021 End: 08-18-2022 Tobacco use and exposure Smokeless tobacco non-user [facility] Start: 06-07-2021 End: 02-17-2022 Alcohol intake Current drinker of alcohol (finding) [facility] Start: 03-03-2021 History SDOH Alcohol Comment Socially [facility] Start: 1945 Sex Assigned At Not on file [facility] Start: 07-06-2021 End: 08-18-2022 Exposure to SARS-CoV-2 (event) Not sure [facility] Start: [birth year]-03-1957 End: 03-03-1961 History of tobacco use Cigarette Smoker [facility] Start: 08-18-2022 End: 05-14-2024 Sex Assigned At Male [facility] Adult Depression Screening Assessment 0 [facility] Start: 1945 Sex Assigned At Male F [facility] Medical Equipment Procedure Code Equipment Code Equipment Origin al Text Equipment Identifier Dates PROSTATIC BRACHYTHERAPY Yuan Bartlett MD 07/07/21 Unknown Other FDA Start: 07-07-2021 PROSTATIC BRACHYTHERAPY Yuan Bartlett MD 07/07/21 Unknown Other FDA Start: 07-07-2021 Functional Status Date Assessment Result Facility 11-01-2022 Functional Status N/A [facility] Clinical Notes 02-17-2022 to 02-15-2024 Note Date & Type Note Facility 02-15-2024 Evaluation note Diagnosis Cancer of prostate w/med recur risk (T2b-c or Ulen 7 or PSA 10-20) (HCC)- Primary Malignant neoplasm of prostate documented in this encounter [facility]05-30-2024 NoteHNO ID: [id number] Author: Yuan BARTLETT MD Service: ? Author Type: Physician Type: Progress Notes Filed: 02/15/2024 11:26 Note Text: Radiation Oncology - Follow Up [...] PSA HISTORY: PSA. (no units) Date Value 02/14/2024 0.61 04/04/2023 <0.13 07/29/2022 <0.13 02/16/2022 0.13 ALLERGIES No Known Allergies loperamide HCl (IMODIUM ORAL) Take by mouth. [...] aid urination: n - Total AUA Score: 9 Bowel movement frequency: 1/day Bowel movement quality: normal Blood per rectum: none ADT: Lupron for approximately 12 months currently off PHYSICAL EXAM: BP 109/69 Pulse 66 Temp 36.3 ?C (97.3 ?F) (Temporal) Resp 18 Wt 99.2 kg (218 lb 11.1 oz) BMI 31.83 kg/m? KPS: 100 General appearance: Alert and [...] s/p Pelvic radiation and prostate brachytherapy boost. Clinically doing well. He has been off of Lupron, PSA detectable but remains low. Likely small rise related to withdrawal effect. Recommend continued surveillance with PSA in 6 months. Signed by: Yuan Bartlett MD cc: Nico Lino ([facility]) [address] [place] [address] Dr. Storey Portions of the above note extracted and edited from previous visit as well as active information included in the EMR.[facility]05-30-2024 History of Present illness Narrative* Yuan Bartlett MD - 02/15/2024 10:00 AM EDT Radiation Oncology - Follow Up Note PATIENT NAME: Segun Johnson PATIENT DIAGNOSIS: Prostate adenocarcinoma, initial PSA 11.5, biopsy Ulen score 4 + 3 = 7 (grade [...] PSA HISTORY: PSA. (no units) Date Value 02/14/2024 0.61 04/04/2023 <0.13 07/29/2022 <0.13 02/16/2022 0.13 ALLERGIES No Known Allergies loperamide HCl (IMODIUM ORAL) Take by mouth. [...] aid urination: n - Total AUA Score: 9 Bowel movement frequency: 1/day Bowel movement quality: normal Blood per rectum: none ADT: Lupron for approximately 12 months currently off PHYSICAL EXAM: BP 109/69 Pulse 66 Temp 36.3 C (97.3 F) (Temporal) Resp 18 Wt 99.2 kg (218 lb 11.1 oz) BMI 31.83 kg/m KPS: 100 General appearance: Alert and oriented. No acute distress. Rectal exam def Extremities: No deformities, edema, skin discoloration, clubbing or cyanosis. Lymph Nodes: No cervical lymphadenopathy, No supraclavicular lymphadenopathy, No axillary lymphadenopathy. Skin: Skin color, texture, turgor normal, no suspicious rashes or lesions. 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 Clinically doing well. He has been off of Lupron, PSA detectable but remains low. Likely small riserelated to withdrawal effect. Recommend continued surveillance with PSA in 6 months. Signed by: Yuan Bartlett MD cc: Nico Lino ([facility]) [address] [place] [address] Dr. Storey Portions of the above note extracted and edited from previous visit as well as active information included in the EMR. [facility] Note* Venus Vasques MA - 02/15/2024 9:47 AM EDT AUA=9 [facility]04-01-2024 Nurse Note* Venus Vasques MA - 02/15/2024 9:47 AM EDT AUA=9 documented in [facility]23 NoteHNO ID: [id number] Author: Yuan Bartlett MD Service: ? Author Type: Physician [...] 6 months with repeat PSA. Signed by: Yuan Bartlett MD cc: Nico Lino () [address] [place] [address] Dr. Storey Portions of the above note extracted and edited from previous visit as well as active information included in the EMR.[facility] 08-17-2023 History of Present illness Narrative* uYan Bartlett MD - 08/17/2023 10:15 AM EST Radiation Oncology - Follow Up [...] 104.8 kg (231 lb) SpO2 95% BMI 33.62kg/m KPS: 100 General appearance: Alert and oriented. [...] 6 months with repeat PSA. Signed by: Yuan Bartlett MD cc: Nico Lino ([facility]) [address] [place] [address] Dr. Storey Portions of the above note extracted and edited from previous visit as well as active information included in the EMR. documented in this [facility]11-30-2023 Nurse Note* Angélica Acharya RN - 08/17/2023 10:07 AM EST AUA 7 Angélica Acharya, RN documented in this [facility]11-08-2023 Evaluation note* Encounter Date Diagnosis Assessment Notes Treatment Notes Treatment Clinical Notes Jul, Medicare annual well ness visit, subsequent (ICD-10 - Z00.00) Personalized health [...] amended by provider signed below. Jul, ASHD (arteriosclerot ic heart disease) (ICD-10 - I25.10) This patient is stable without activity related CP, dyspnea or lightheadedness. They are instructed to continue exercise and AHA diet plan. Continue secondary prevention measures. Jul, Type 2 diabetes gio itus with hyperglycemia, without long-term current use of [...] to achieve/maintain a normal BMI. Jul, Pure hypercholestero lemia (ICD-10 - E78.00) Instructed on diet and exercise with continued statin therapy.Discussed the beneficial effects of lowering cholesterol in reducing the risk for cerebrovascular and cardiovascular disease. Jul, Chronic venous insufficiency (ICD-10 - I87.2) Avoid salt and elevate lower extremities, support stockings, inspect legs and feet daily for blisters and ulcerations. 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 Recheck CBC Jul, Pernicious anemia (I CD-10 - D51.0) Continue supplement, recheck CBC [facility] Other 07-18-2023 Evaluation note* Encounter Date Diagnosis Assessment Notes Treatment Notes Treatment Clinical Notes Mar, Type 2 diabetes mellitus with hyperglycemia, without long-term current use of insulin (ICD-10 - E11.65) [facility] Other 03-14-2023 Evaluation note* Encounter Date Diagnosis [...] Pernicious anemia (ICD-10 - D51.0) B12 monthly [facility] Other 02-14-2023 Hospital Discharge instructions Patient Education [...] urethra. Follow these instructions at home: Take gyah-icp-bolsmkd and prescription medicines only as told by [...] 09/04/2006 Document Revised: 07/30/2019 Document Reviewed: 10/09/2017 [employer] Patient Education 2020 [employer]. Follow Up Care 05/03/2022 11:28:51 With:DIALLO SHEEHAN, HENRIQUE Ortega, URL Address: [address] [place], [place] [address] [address] When:Within 18 Month(s) Comments:PSA [facility] 12-01-2022 History of Present illness Narrative* Irlanda Castro APRN.MAGAZINE WORKER - 08/18/2022 2:26 PM EST Segun Johnson returns for follow-up. He was seen and examined by Dr. Bartlett today. He urinates every 2-3 hours. He has occasional dribbling of urine. He denies any problems with his bowel. Patient was given his treatment summary and survivorship care plan for prostate cancer. 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 No evidence of recurrence of posttreatment problems. Plan to see patient back in 6 months with repeat PSA. Signed by: Yuan Bartlett MD cc: Nico Lino ([facility]) [address] [place] [address] Dr. Storey Portions of the above note extracted and edited from previous visit as well as active information included in the EMR. documented in this encounter[facility]12-[facility]-2022 Nurse Note* Angélica Acharya RN - 08/18/2022 10:30 AM EST AUA 14 Angélica Acharya RN documented in this encounter[facility]06-[facility]-2022 History of Present illness Narrative* Yuan Bartlett MD - 02/17/2022 9:58 AM EDT [...] 4 months with repeat PSA. Signed by: Yuan Bartlett MD cc: Nico Lino ([facility]) [address] [place] [address] Dr. Storey Portions of the above note extracted and edited from previous visit as well as active information included in the EMR. documented in this encounterAv[facility] System06-02-2022 Nurse Note* Angélica Acharya RN - 02/17/2022 9:54 AM EDT AUA 10 Angélica Acharya RN [facility] Future Appointments Appointment Date:03/05/2024 11:00:00 AM Scheduled Provider:HENRIQUE LANDRUM PA-C Location:[facility] Appointment Type:URO Office Visit Diagnostic Tests Pending * PSA Total 11/01/22 [facility] evaluation note* Diagnosis Prostate cancer (HCC)- Primary Malignant neoplasm of prostate documented in this encounter [facility] note* Diagnosis Prostate cancer (HCC) Malignant neoplasm of prostate documented in this encounter [facility] note* Diagnosis Prostate cancer (HCC)- Primary Malignant neoplasm of prostate [facility] noteNo InformationNortCommunity Health Systems [email or web address] Other Evaluation note* Diagnosis Malignant neoplasm of prostate (HCC)- Primary Malignant neoplasm of prostate documented in this encounter [facility] note* Diagnosis Onset Date Resolution Status ASHD (arteriosclerotic heart disease) acute Chronic venous insufficiency acute Diabetes mellitus with hyperglycemia acute Elevated cholesterol acute Primary hypertension acute Prostate cancer acute [facility] Work Phone: Evaluation note* Diagnosis Age-related nuclear cataract of both eyes- Primary documented in this encounter [facility]* Diagnosis Age-related nuclear cataract of both eyes [facility] Healthcare[facility] general Narrative - Reported* Type Description Date [...] (TRUS) W ITH BIOPSY 2020 Surgical History C PTCA LAD/OM 2003 Hospitalization History SEE SURGICAL HX [facility] [email or web address] Other Hospital course Narrative No data available for this section [facility] Hospital Discharge instructions No data available for this section [facility] [employer] progress note No data available for this section [facility] Summary Purpose Family History No Family History Records FoundNo Family History Records FoundNo Family History Records Found No data available for this section No Family History Records FoundNo Family History Records Found Advance Directives Advance Directive Response Recorded Date/ Time Advance Directives No October 09, 2023 4:12pm Chief Complaint and Reason for Visit Chief Complaint 4 month follow up Reason for Visit ASHD (arteriosclerot ic heart disease) Chronic venous insufficiency Diabetes mellitus with hyperglycemia Elevated cholesterol Primary hypertension Prostate cancer Additional Source Comments (unrecognized sect ion and content) No Status Records FoundNo Status Records FoundNo Status Records FoundNo Status Records FoundNo Status Records Found INFORMATION SOURCE (unrecogn ized section and content) DATE CREATED AUTHOR 04/06/2018 [facility] DATE CREATED AUTHOR AUTHOR'S ORGANIZ ATION 01/09/2023 [facility] DATE CREATED AUTHOR AUTHOR'S ORGANIZ ATION 02/16/2024 [facility] DATE CREATED AUTHOR AUTHOR'S ORGANIZ ATION 03/07/2024 [facility] DATE CREATED AUTHOR AUTHOR'S ORGANIZ ATION 05/16/2024 [facility] EPIC Source Comments (unrecognize d section and content) In the event this informatio n is protected by the Federal Confidentiality of Alcohol and Drug Abuse Patient Records regulations: The Federal rules restrict any use of the information to criminally investigate or prosecute any alcohol or drug abuse patient.[facility] System[facility] the event this information is protected by the Federal Confidentiality of Alcohol and Drug Abuse Patient Records regulations: The Federal rules restrict any use of the information to criminally investigate or prosecute any alcohol or drug abuse patient.[facility] SystemIn the event this information is protected by the Federal Confidentiality of Alcohol and Drug Abuse Patient Records regulations: The Federal rules restrict any use of the information to criminally investigate or prosecute any alcohol or drug abuse patient.[facility] SystemIn the event this information is protected by the Federal Confidentiality of Alcohol and Drug Abuse Patient Records regulations: The Federal rules restrict any use of the information to criminally investigate or prosecute any alcohol or drug abuse patient.[facility] SystemIn the event this information is protected by the Federal Confidentiality of Alcohol and Drug Abuse Patient Records regulations: The Federal rules restrict any use of the information to criminally investigate or prosecute any alcohol or drug abuse patient.[facility] SystemIn the event this information is protected by the Federal Confidentiality of Alcohol and Drug Abuse Patient Records regulations: The Federal rules restrict any use of the information to criminally investigate or prosecute any alcohol or drug abuse patient.[facility] Reason for Visit (unrecogniz ed section and content) Reason Comments Prostate Cancer Reason Comments Prostate Cancer Follow up Reason Onset Date Comments Med Refill 07/02/2024 Reason Onset Date Comments Med Refill 07/03/2024 Care Teams (unrecognized sec tion and content) Scientific Informatics Project Leader Relationship Specialty Start Date End Date Nico Lino, DO [address] [place] [place] [address] PCP - General Internal Medicine 02/10/21 Joseph Vasques Jr. [address] [place] [address] Urology 02/10/21 [employer] In[employer] Project Leader Relationship Specialty Start Date End Date Nico Lino Jordan, DO [address] [place] [place] [address] PCP - General Internal Medicine 02/10/21 Joseph Vasques Jr. [address] [place] [address] Urology 02/10/21 [employer] Project Leader Relationship Specialty Start Date End Date Holland Nico Ortega, DO [address] [place] [address] PCP - General Internal Medicine 02/10/21 Joseph Vasques Jr. [address] [place] [address] Urology 02/10/21 [employer] Informatics Project Leader Relationship Specialty Start Date End Date Nico Lino DO [address] [place] [address] PCP - General Internal Medicine 02/10/21 Joseph Vasques Jr. [address] [place] [address] Urology 02/10/21 [employer] In[employer] Project Leader Relationship Specialty Start Date End Date Nico Lino DO [address] [place] [address] PCP - General Internal Medicine 02/10/21 Joseph Vasques Jr. [address] [place] [address] Urology 02/10/21 Team Status: Active Member Role Status Dates Nico Lino , Primary Care Provider Active Team Status: Active Member Role Status Dates Nico Lino , Primary Care Provider Active Start: February 14, 2024 Ketan Bartlett MD Attending Provider Active Start: February 14, 2024 Team Status: Active Member Role Status Dates Nico Lino DO Primary Care Provide r, Attending Provider Active Start: March 26, 2024 Team Status: Inactive Member Role Status Dates Nico Lino , DO Primary Care Provide r, Attending Provider Active Start: March 27, 2024 End: March 27, 2024 Scientific Informatics Project Leader Relationship Specialty Start Date End Date Nico Lino DO [address] [place] [address] PCP - General Internal Medicine 02/10/21 Joseph Vasques Jr. [address] [place] [address] Urology 02/10/21 Scientific Informatics Project Leader Relationship Specialty Start Date End Date Nico Lino MD [address] [place] [id number] PCP - General Internal Medicine 05/14/24 Scientific Informatics Project Leader Relationship Specialty Start Date End Date Nico Lino MD [address] [place] [address] PCP - General Internal Medicine 8/27/24 Goals (unrecognized section and content) Goals may be documented in a n alternate section FOR RECORDS PERTAINING TO PATIENTS WHO ARE [...] BE BASED ON THE PRIMARY CLINICAL RECORDS. [facility] [employer] [facility]. provides no warranty or guarantee of the accuracy or completeness of information in this document.
[2024-07-30 12:31] LABS: Basophils Absolute Auto 0.2 10^3/uL (0.0-0.1); Basophils Percent Auto 1.4 % (0.2-2.0); Eosinophils Absolute Auto 0.6 10^3/uL (0.0-0.7); Eosinophils Percent Auto 4.7 % (0.9-7.0); Hematocrit 40.5 % (42.0-54.0); Hemoglobin 13.1 g/dL (14.0-18.0); Immature Granulocytes Abs Auto 0.15 10^3/uL (0.00-0.03); Immature Granulocytes Pct Auto 1.2 % (0.0-0.5); Lymphocytes Percent Auto 16.9 % (20.5-60.0); Mean Corpuscular HGB Conc 32.3 g/dL (29.9-35.2); Mean Corpuscular Hemoglobin 28.9 pg (25.9-34.0); Mean Corpuscular Volume 89.4 fL (80.0-94.0); Monocytes Absolute Auto 0.9 10^3/uL (0.3-0.8); Monocytes Percent Auto 7.4 % (1.7-12.0); Neutrophils Absolute Auto 8.3 10^3/uL (1.4-6.5); Neutrophils Percent Auto 68.4 % (43.0-75.0); Platelet Count 335 10^3/uL (150-450); Red Blood Count 4.53 10^6/uL (4.70-6.10); White Blood Count 12.1 10^3/uL (4.0-11.0)
[2024-07-30 13:26] LABS: Estimated Average Glucose 169 mg/dL; Glycohemoglobin A1C 7.5 % (4.5-6.2)
[2024-07-30 13:28] LABS: Alanine Aminotransferase 27 U/L (16-63); Albumin Globulin Ratio 0.8; Albumin Level 3.3 g/dL (3.4-5.0); Alkaline Phosphatase 90 U/L (46-116); Aspartate Amino Transferase 18 U/L (15-37); BUN Creatinine Ratio 16.2; Bilirubin Total 0.4 mg/dL (0.2-1.0); Calcium 8.7 mg/dL (8.5-10.1); Carbon Dioxide 23.4 mmol/L (21.0-32.0); Chloride 107 mmol/L (98-107); Chol HDL Ratio 4.1; Cholesterol 135 mg/dL (<=200); Estimated GFR (African America 56 (>=60 mL/min/1.73m^2); Estimated GFR (Non-African Ame 46 (>=60 mL/min/1.73m^2); Globulin 4.4 g/dL; Glucose 143 mg/dL (74-106); HDL Cholesterol 33 mg/dL (40-60); Potassium 4.4 mmol/L (3.5-5.1); Sodium 143 mmol/L (136-145); Total Protein 7.7 g/dL (6.4-8.2); Triglycerides 177 mg/dL (<=150); VLDL CHOLESTEROL 35.4 mg/dL
[2024-07-30 13:29] LABS: Microalbumin Urine Random 5.7 mg/dL (<=30.0)
[2024-07-30 14:04] LABS: Prostate Specific Antigen Scrn 1.21 ng/mL (<=4.00)
== END 2024-07-30 12:10 | disposition home or self-care (01) ==
LOC: LAB 12:12
PROVIDERS: PCP Internal Medicine; Visit Provider Internal Medicine
DX: E11.65 Type 2 diabetes mellitus with hyperglycemia (principal); I10 Essential (primary) hypertension; D51.0 Vitamin B12 deficiency anemia due to intrinsic factor deficiency; I25.10 Atherosclerotic heart disease of native coronary artery without angina pectoris; E78.00 Pure hypercholesterolemia, unspecified; C61 Malignant neoplasm of prostate
CPT/HCPCS: 36415; 80053; 80061; 82043; 83036; 85025; G0103

== ENCOUNTER 2024-11-21 10:57 | Outpatient (OUT) | payer MEDICARE, SELFPAY ==
--- OUTSIDE RECORDS SUMMARY | 2024-11-21 11:10 | XMS_ITS | CCD ---
Author Organization [facility] CliniSyil Care Team Providers Care Sole Molder Name Role Phone PHYSICIAN, DEFAULT Unavailable Unavailable PHYSICIAN, DEFAULT Unavailable Annabella LINO, NICO Unavailable Nico Gonzalez DO Primary Care Provider Joseph Vasques Jr. Unavailable Nico Lino DO Primary Care Provider Joseph Vasques Jr. Unavailable NICO LINO Primary Care Physician Nico Lino Unavailable MAGO, DR MAS Admitting [...] MAGO, DR MAS Primary Care Unavailable ANA ., CYNTHIA Admitting Unavailable ANA ., CNYTHIA Attending Unavailable GRECHJULIO ., HALLE CASTELLANOS Consulting Unavailevangelina e ADOLFO, DR VICKI Delcid Admitting Unavailable ENGELEChristos, DR VICKI Delcid Attending Unavailable MAGO, DR MAS Primary Care Unavailable MAGO, DR MAS Admitting Unavailable MAGO, DR MAS Attending Unavailable MAGO, DR MAS Primary Care Unavailable MAGO, DR MAS Consulting Unavailable Nico Lino DO Primary Care Provider HENRIQUE LANDRUM Attending Unavailable CONCHITA KENNY Attending Unavailable HUMA BARBOSA Referring Unavailable Nico Lino MD Primary Care Provider NICO LINO Primary Care Unavailable Ronda BARTLETT Referring Unavailable ALEXANDRARRonda Attending Unavailable NICO LINO Primary Care Unavailable ENGELERRonda Referring Unavailable ENGELER Ronda MUÑOZ Attending Unavailable NICO LINO Primary Care Unavailable Ronda BARTLETT Attending Unavailable Allergies Allergy Classification Reported Allergen(s) Allergy Type Date of Onset Reaction(s) Facility (1 source) Shellfish Containing Products Drug allergy (disorder) 9 [facility] Repository (3 sources) Seafood; Translations: [Seafood] Drug allergy Itching [facility] (1 source) patient allergy list reviewed by nurse or physicia Propensity to adverse reactions 5 Comment:Done [employer] Other (1 source) Shrimp product; Translations: [Shrimp] Propensity to adverse reactions (disorder) [facility] Repository (1 source) No Known Medication Allergies; Translations: [No Known Medication Allergies] Propensity to adverse reactions (disorder) [facility] Repository Medications Current Medications Medication Drug Class(es) Dates Sig (Normalized) Sig (Original) aspirin 81 mg delayed release oral tablet (15 sources) Platelet Aggregation Inhibitor, Nonsteroidal Anti-inflammatory Drug Start: 01-22-2021 aspirin, enteric coated (ASPIRIN, ENTERIC COATED) 81 mg EC tablet Take by mouth. 01/22/2021 Active Comment on above: Take by mouth. atenolol 50 mg oral tablet (17 sources) beta-Adrenergic Tatyana Start: 01-01-2024 take 1 tablet by mouth once daily Atenolol 50 mg tablet Active 0 .ROUTE .COMPLEX 90 January 01, 2024 8:26am TAKE 1 TABLET BY MOUTH EVERY DAY Start: 01-14-2021 End: 01-01-2024 atenolol (TENORMIN) 50 mg ta blet Take 50 mg by mouth. 01/14/2021 Active Comment on above: Take 50 mg by mouth. atorvastatin 80 mg oral tablet (20 sources) HMG-CoA Reductase Inhibitor Start: 01-14-2021 atorvastatin [...] oral tablet (2 sources) Vitamin D Start: take 1 tablet by mouth once daily calcium (as carbonate)-vitamin D 600 mg-200 units oral tablet 1 tab(s), Oral, Daily, Prophylaxis Start Date: 06/16/21 Status: Ordered cyanocobalamin, vitamin B-12, (VITAMIN B12 ORAL) (2 sources) cyanocobalamin, vitamin B-12, (VITAMIN B12 ORAL) Take by mouth. Active cyanocobalamin, vitamin B-12, (VITAMIN B12 ORAL) Take by mouth. 0 Active folic acid 1 mg oral tablet (10 sources) Start: 11-23-2023 folic acid 1 m g tablet once daily. 11/23/2023 Active glimepiride 4 mg oral tablet (19 sources) Sulfonylurea Start: 07-20-2024 take 1 tablet by mouth before breakfast Glimepiride 4 mg tablet Active 0 .ROUTE .COMPLEX 90 July 20, 2024 6:49am TAKE 1 TABLET BY MOUTH IN THE MORNING 30 MINUTES BEFORE BREAKFAST Start: 11-23-2023 End: 07-20-2024 take 2 mg by mouth once daily in the morning Glimepiride 4 mg tablet Discontinued 2 MG PO Every morning November 23, 2023 12:00am July 20, 2024 6:49am Start: 11-23-2023 take 2 mg by mouth o nce daily in the morning Glimepiride Active 2 MG PO Every morning November 23, 2023 1:00am Start: 03-01-2021 glimepiride (A MARYL) 2 mg tablet 03/01/2021 Active Start: 01-14-2021 take 1 tablet by ruth ann th once daily glimepiride 1 mg Tab 1 [...] Active ketorolac tromethamine 5 mg/ml ophthalmic solution (3 sources) Nonsteroidal Anti-inflammatory Drug, Cyclooxygenase Inhibitor Start: 07-02-2024 End: 08-01-2024 take 1 drop(s) into the eye(s) in the morning ketorolac (Acular) 0.5 % ophthalmic solution Indications: Age-related nuclear cataract of both eyes Administer 1 drop into affected eye(s) in the morning and 1 drop before bedtime. 5 mL 1 07/02/2024 08/01/2024 Active Start: 05-14-2024 End: 06-13-2024 take 1 drop(s) into the eye(s) in the morning ketorolac (Acular) 0.5 % ophthalmic solution Indications: Age-related nuclear cataract of both eyes Administer 1 drop into affected eye(s) in the morning and 1 drop before bedtime. 5 mL 1 05/14/2024 06/13/2024 Active lisinopril 10 mg oral tablet (20 sources) Angiotensin Converting Enzyme Inhibitor Start: 01-01-2024 take 1 tablet by mouth once daily Lisinopril 10 mg tablet Active 0 .ROUTE .COMPLEX 90 January 01, 2024 8:26am TAKE 1 TABLET BY MOUTH EVERY DAY Start: 01-14-2021 End: 01-01-2024 lisinopril 10 MG tablet .Patronpath PLEX 01/01/2024 Active Comment on above: Take 10 mg by mouth. loperamide hydrochloride 2 mg oral tablet (9 sources) Opioid Agonist Start: 06-16-2021 take 1 [...] mouth. metFORMIN hydrochloride 1000 mg oral tablet (15 sources) Biguanide Start: 04-17-2024 take 1 tablet by mouth twice daily at dinner Metformin 1,000 mg tablet Active 0 .ROUTE .COMPLEX 180 April 17, 2024 11:50am TAKE 1 TABLET BY MOUTH 2 TIMES A DAY with breakfast and evening meal Start: 11-23-2023 End: 04-17-2024 take 1 tablet by mouth twice daily at mealtime Metformin 1,000 mg tablet Discontinued 1000 MG PO Twice daily with meals November 23, 2023 12:00am April 17, 2024 11:50am Start: 01-14-2021 End: 08-18-2022 take 1 tablet [...] twice daily. ofloxacin 3 mg/ml ophthalmic solution (3 sources) Quinolone Antimicrobial Start: 4 End: take 1 drop(s) into the eye(s) five times daily ofloxacin (Ocuflox) 0.3 % ophthalmic solution Indications: Age-related nuclear cataract of both eyes Administer 1 drop into the right eye 5 (five) times a day for 1 day Starting 1 day before surgery, continue after surgery as directed 5 mL 1 07/02/2024 07/03/2024 Active Start: 05-14-2024 End: 05-15-2024 take 1 drop(s) into the eye(s) five times daily ofloxacin (Ocuflox) 0.3 % ophthalmic solution Indications: Age-related nuclear cataract of both eyes Administer 1 drop into the right eye 5 (five) times a day for 1 day Starting 1 day before surgery, continue after surgery as directed 5 mL 1 05/14/2024 05/15/2024 Active prednisoLONE acetate 10 mg/ml ophthalmic suspension (5 sources) Corticosteroid Start: 07-03-2024 prednisoLONE a cetate (PRED FORTE) 1 % ophthalmic suspension Administer 1 drop into both eyes four times a day (morning, noon, evening, bedtime) for 14 days. 07/03/2024 Active Start: 07-02-2024 End: 07-17-2024 prednisoLONE acetate (Pred-F orte) 1 % ophthalmic suspension Indications: Age-related nuclear cataract of both eyes Administer 1 drop into both eyes in the morning and 1 drop at noon and 1 drop in the evening and 1 drop before bedtime. Do all this for 14 days. 5 mL 1 07/03/2024 07/17/2024 Active Start: 05-14-2024 End: 05-28-2024 prednisoLONE acetate (Pred-F orte) 1 % ophthalmic suspension Indications: Age-related nuclear cataract of both eyes Administer 1 drop into both eyes in the morning and 1 drop at noon and 1 drop in the evening and 1 drop before bedtime. Do all this for 14 days. 5 mL 1 05/14/2024 05/28/2024 Active propylene glycol 6 mg/ml ophthalmic solution (1 source) Start: 07-30-2024 Propylene Glyc ol (Systane Complete) 0.6 % drops Active 1 DROPS EYE-BOTH Four times daily as needed July 30, 2024 12:00am sertraline 100 mg oral tablet (19 sources) Serotonin Reuptake Inhibitor Start: 04-09-2024 take 1 tablet by mouth at bedtime Sertraline 100 mg tablet Active 0 .ROUTE .COMPLEX 90 April 09, 2024 7:49am TAKE 1 TABLET BY MOUTH AT BEDTIME Start: 01-14-2021 End: 04-09-2024 sertraline (ZOLOFT) 100 mg t ablet Take 100 mg by mouth. 01/14/2021 Active Comment on above: Take 100 mg by mouth . tamsulosin hydrochloride 0.4 mg oral capsule (6 sources) alpha-Adrenergic Tatyana Start: 2 End: 3 take 1 capsule by mouth once daily tamsulosin 0.4 mg Cap 0.4 mg = 1 cap(s), Oral, Daily, # 30 cap(s), Refills(s) 11, Pharmacy: [id number], 173, cm, 11/02/21 11:02:00 [...] to other specified organisms] Episodic Anxiety disorders (8 sources) Generalized anxiety disorder; Translations: [Generalized anxiety disorder] Chronic Appendicitis and other appendiceal conditions (2 sources) Appendicitis 06-16-2021 Episodic Cancer of prostate (20 sources) Malignant tumor of prostate; Translations: [Malignant neoplasm of prostate] Onset: 02-17-2021 Chronic Comment on above: TRUS/Bx 2020Gleason 4+3, group 3EBT, Brachytherapy and ADT Cataract (6 sources) Bilateral age-related nuclear cataracts; Translations: [Age-related nuclear cataract, bilateral] Onset: 05-14-2024 07-02-2024 Chronic Coronary atherosclerosis and other heart disease (14 sources) Coronary occlusion; Translations: [Coronary arteriosclerosis] Onset: 06-24-2015 06-16-2021 Chronic Deficiency and other anemia (5 sources) 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; Translations: [Folate deficiency anemia, unspecified] Episodic Deficiency and other anemia (5 sources) Anemia; Translations: [Anemia, unspecified] Episodic Deficiency and other anemia (7 sources) Pernicious anemia; Translations: [Vitamin B12 deficiency anemia due to intrinsic factor deficiency] 11-23-2023 Episodic Deficiency and other anemia (2 sources) Vitamin B12 deficiency anemia due to intrinsic factor deficiency Episodic Deficiency and other anemia (1 source) Folate deficiency anemia, unspecified Episodic Deficiency and other anemia (2 sources) Nutritional anemia; Translations: [Folate deficiency anemia, unspecified] 11-23-2023 Episodic Diabetes mellitus with complications (20 sources) Hyperglycemia due to type 2 diabetes mellitus; Translations: [Type 2 diabetes mellitus with hyperglycemia] Onset: 11-29-2022 Chronic Diabetes mellitus without complication (2 sources) Diabetes mellitus 06-16-2021 Chronic Disorders of lipid metabolism (17 sources) Pure hypercholesterolemia ; Translations: [Familial hypercholesterolemia ] Onset: 06-24-2015 Chronic E Codes: Cut/pierceb (1 source) Contact with other sharp object(s), not elsewhere classified, initial encounter; Translations: [[facility] OTH SHRP OB NOT ELSW CLASS INI] Onset: 01-09-2023 Episodic Essential hypertension (19 sources) Hypertensive disorder; Translations: [Essential hypertension] Onset: [...] sources) H/O: high risk medication; Translations: [Other halfway (current) drug therapy] Episodic Other aftercare (1 source) Other halfway (current) drug therapy; Translations: [OTH HALF-WAY CURRENT DRUG THERAPY] Onset: 01-09-2023 Episodic Other aftercare (1 source) long term care pharmacist (current) use of aspirin; Translations: [HALF-WAY CURRENT USE OF ASPIRIN] Onset: 01-09-2023 Episodic Other aftercare (1 source) alf (current) use of oral hypoglycemic drugs; Translations: [QUALITY CONTROL TECHNICIAN USE ORAL HYPOGLYCEMIC DX] Onset: 01-09-2023 Episodic Other aftercare (1 source) Long-term current use of drug therapy; Translations: [Other long term care pharmacist (current) drug therapy] Episodic Other diseases of kidney and ureters (1 source) Urinary tract obstruction; Translations: [Other obstructive and reflux uropathy] Onset: 11-01-2022 Episodic Other diseases of veins and lymphatics (7 sources) Peripheral venous insufficiency; Translations: [Venous insufficiency (chronic) (peripheral)] 11-23-2023 Episodic Other diseases of veins and lymphatics (4 sources) Venous insufficiency (chronic) (peripheral); Translations: [Venous [...] Test Name Value Interpretation Reference Range Facility CNOVon 08-09-2024 CNOV Office Visit (RADT[facility]) SEGUN JOHNSON ([id number]) 1945 M Date Time Provider Department 08/09/24 9:15 AM Ronda BARTLETT During your visit today, we recorded the following information about you: Temperature Pulse Respiration Blood pressure 97.4 degrees 70/minute 16/minute 105/62 Weight 96 kg Jillian Waddell LPN 08/09/2024 9:23 AM Signed AUA= 8 Ronda Bartlett MD 08/09/2024 9:31 AM Signed Radiation Oncology - Follow Up [...] PSA HISTORY: PSA. (no units) Date Value 07/30/2024 1.21 02/14/2024 0.61 04/04/2023 <0.13 07/29/2022 <0.13 ALLERGIES No Known Allergies folic acid 1 mg tablet once daily. metFORMIN (GLUCOPHAGE) 1,000 mg tablet TAKE 1 TABLET BY MOUTH 2 TIMES A DAY with breakfast and evening meal prednisoLONE acetate (PRED FORTE) 1 % ophthalmic suspension Administer 1 drop into both eyes four times a day (morning, noon, evening, bedtime) for 14 days. cyanocobalamin, vitamin B-12, (VITAMIN B12 ORAL) Take by mouth. loperamide HCl (IMODIUM ORAL) Take by mouth. [...] aid urination: n - Total AUA Score: 8 Bowel movement frequency: 1/day Bowel movement quality: normal Blood per rectum: none ADT: Lupron for approximately 12 months currently off PHYSICAL EXAM: BP 105/62 Pulse 70 Temp 36.3 ?C (97.4 ?F) Resp 16 Wt 96 kg (211 lb 10.3 oz) SpO2 97% BMI 30.81 kg/m? KPS: 100 General appearance: Alert and oriented. No acute distress. Rectal exam def Extremities: No deformities, edema, skin discoloration, clubbing or cyanosis. Lymph Nodes: No cervical lymphadenopathy, No supraclavicular lymphadenopathy, No axillary lymphadenopathy. Skin: Skin color, texture, turgor normal, no suspicious rashes or lesions. 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 Clinically doing well. PSA has climbed, still may be a factor of androgen recovery. Recommend recheck in 3 to 4 months along with testosterone. If continues to climb consider PSMA PET. Signed by: Ronda Bartlett MD cc: Nico Lino ([facility]) [address] [place] [address] Dr. Storey Portions of the above note extracted and edited from previous visit as well as active information included in the EMR. Referring Provider: Ronda BARTLETT [[id number]] Allergies As of Date: 08/09/2024 (No Known Allergies) Date Reviewed: 08/09/2024 Reviewed by: Jillian Waddell LPN - Fully Assessed Reason for Visit: Prostate Cancer [590] Primary Visit Diagnosis:Cancer of prostate w/med recur risk (T2b-c or Asaf 7 or PSA 10-20) ([facility]) [C61] Order(s):PSA (OUTSIDE) [[id number]] Order #: [id number] PROSTATE-SPECIFIC ANTIGEN DIAGNOSTIC [SQPSA] Order #: [id number] FUTURE TESTOSTERONE, TOTAL BY IMMUNOASSAY (ADULT MALES, OR INDIVIDUALS ON TESTOSTERONE THERAPY) [SQTESTO] Order #: [id number] FUTURE Prescriptions as of 08/09/2024 - folic acid 1 mg tablet once daily. - metFORMIN (GLUCOPHAGE) 1,000 mg tablet TAKE 1 TABLET BY MOUTH 2 TIMES A DAY with breakfast and evening meal - prednisoLONE acetate (PRED FORTE) 1 % ophthalmic suspension Administer 1 drop into both eyes four times a day (morning, noon, evening, bedtime) for 14 days. - cyanocobalamin, vitamin B-12, (VITAMIN B12 ORAL) Take by mouth. - loperamide HCl (IMODIUM ORAL) Take by mouth. - aspirin, enteric coated (ASPIRIN, ENTERIC COATED) 81 mg EC tablet Take by mouth. - atenolol (TENORMIN) 50 mg tablet Take 50 mg by mouth. - atorvastatin (LIPITOR) 40 mg tablet Take 40 mg by mouth. - glimepiride (AMARYL) 2 mg tablet - l (more content not included)... Normal [facility] PSA (OUTSIDE)on 07-30-2024 [facility] US Eye+Orbit - bilateralon 0 05-14-2024 Diagnosis: Cataract both eyes (OU) Testing Indication: Performed for preop measurements in the determination of an intraocular lens (IOL) for both eyes (OU) Test Reliability: Good quality both eyes (OU) Interpretation: Good measurements for intraocular lens (IOL) calculation purposes. Calculation made for both eyes (OU). [facility] [place] Radiology Study observation (narrative) [facility] Glucose mean value [Mass/vol ume] in Blood Estimated from glycated hemoglobinon 03-26-2024 Average glucose Estimated from glycated hemoglobin (Bld) [Mass/Vol] 163 mg/dL [facility] - Hematology and Cell countson 03-26-2024 HbA1c (Bld) [Mass fraction] 7.3 % High 4.5-6.2 [facility] Comment on above: ADA RECOMMENDED LIMI T 4.0 - 6.0ADA THERAPEUTIC TARGET < 7.0ACTION SUGGESTED> 7.0 Consultation Noteon 02-16-20 Consultation Note [id number] 1.00TIFF Normal [facility] CNOVon 02-15-2024 CNOV Office Visit (MANUELA) SEGUN JOHNSON ([id number]) 1945 M Date Time Provider Department 02/15/24 10:00 AM Ronda BARTLETT During your visit today, we recorded the following information about you: Temperature Pulse Respiration Blood pressure 97.3 degrees 66/minute 18/minute 109/69 Weight 99.2 kg Venus Vasques MA 02/15/2024 9:49 AM Signed AUA=9 Ronda Bartlett MD 02/15/2024 11:26 AM Signed Radiation Oncology - Follow Up Note PATIENT NAME: Segun Johnson PATIENT DIAGNOSIS: Prostate adenocarcinoma, initial PSA 11.5, biopsy Northfield score 4 + 3 = 7 (grade [...] with PSA in 6 months. Signed by: Ronda Bartlett MD cc: Nico Lino ([facility]) [address] [place] [address] Dr. Storey Portions of the above note extracted and edited from previous visit as well as active information included in the EMR. Referring Provider: Ronda BARTLETT [[id number]] Allergies As of Date: 02/15/2024 (No Known Allergies) Date Reviewed: 02/15/2024 Reviewed by: Venus Vasques MA - Fully Assessed Reason for Visit: Prostate Cancer [590] Cmt: Follow up Primary Visit Diagnosis:Cancer of prostate w/med recur risk (T2b-c or Asaf 7 or PSA 10-20) ([facility]) [C61] Order(s):PSA (OUTSIDE) [[id number]] Order #: [id number] PROSTATE-SPECIFIC ANTIGEN DIAGNOSTIC [SQPSA] Order #: [id number] FUTURE Prescriptions as of 02/15/2024 - cyanocobalamin, [...] cancer (HCC) [C61] 08/17/2022 Visit Notes: >> Layo DecemberFEDERICO February 15, 2024 9:47 AM Status: Signed AUA=9 Disposition: Return in about 6 months (around 08/17/2024). Follow-up and Disposition History for Encounter Date Provider Department Center 02/15/2024 [id number] BARTLETT Encounter Status:Closed by Ronda BARTLETT on 02/15/24 Normal [facility] Panel Informationon 02-13 Prostate Specific Antigen Total 0.61 ng/mL <=4.00 [facility] PSA (OUTSIDE)on 02-14-2024 [facility] CNOVon 08-17-2023 CNOV Office Visit (RADTSA) SEGUN JOHNSON ([id number]) 1945 M Date Time Provider Department 08/17/23 [...] DIAGNOSIS: Prostate adenocarcinoma, initial PSA 11.5, biopsy Northfield score 4 + 3 = 7 (grade [...] by: Ronda Bartlett MD cc: Nico Lino ([facility]) [address] [place] [address] Dr. Storey Portions of the above note extracted and edited from previous visit as well as active information included in the EMR. Allergies As of Date: 08/17/2023 (No Known Allergies) Date Reviewed: 08/17/2023 Reviewed by: Angélica Acharya RN - Fully Assessed Reason for Visit: Prostate Cancer [590] Primary Visit Diagnosis:Malignant neoplasm of prostate (HCC) [C61] Order(s):PSA (OUTSIDE) [[id number]] Order #: [id number] PSA/PROSTSPECAG DIAG [SQPSA] Order #: [id number] FUTURE Prescriptions as of 08/17/2023 - loperamide [...] 08/17/2022 Visit Notes: >> Angélica Acharya RN [facility] Aug 17, 2023 10:07 AM Status: Signed AUA 7 Angélica Acharya, MARGOT Medications Discontinued During This Encounter Prescriptions - tamsulosin (FLOMAX) 0.4 mg (Discontinued) Take 0.4 mg by mouth once daily. - leuprolide acetate (LUPRON DEPOT INTRAMUSC.) (Discontinued) Inject intramuscularly. Disposition: Return in about 6 months (around 02/15/2024). Follow-up and Disposition History for Encounter Date Provider Department Center 08/17/2023 [id number] BARTLETT JOSE WHITE Encounter Status:Closed by Ronda BARTLETT on 08/17/23 Normal [facility] GLYCOHEMOGLOBIN A1Con 2022 ADA RECOMMENDATION SEE BELOW Normal [facility] Comment on above: Result Comment: ADA RECOMMENDED LIMIT 4.0 - 6.0 ADA THERAPEUTIC TARGET < 7.0 ACTION SUGGESTED > 7.0 Performed By: #### A 1C #### [facility] [address] [address] [address] Radha Brown Glucose [Mass/Vol] 186 mg/dL Normal [facility] Comment on above: Performed By: #### A 1C #### [facility] [address] [address] [address] Radha Brown HbA1c (Bld) [Mass fraction] 8.1 % Critically high 4.5-6.2 [facility] Comment on above: Performed By: #### A 1C #### [facility] [address] [address] [address] Radha Brown CBC AUTO DIFFon 07-29-2022 BASO # 0.1 103/ul Normal 0.0-0.1 [facility] Comment on above: Performed By: #### C BC #### [facility] [address] [address] [address] Radha Brown Basophils/100 WBC (Bld) 0.9 % Normal 0.2-2.0 [facility] Comment on above: Performed By: #### C BC #### [facility] [address] [address] [address] Radha Brown EO # 0.5 103/ul Normal 0.0-0.7 [facility] Comment on above: Performed By: #### C BC #### [facility] [address] [place] [address] Dr. Radha Brown Eosinophils/100 WBC (Bld) 5.5 % Normal 0.9-7.0 [facility] Comment on above: Performed By: #### C BC #### [facility] [address] [place] [address] Dr. Radha Brown Erythrocyte distribution width (RBC) [Ratio] 15.0 % Normal 11.0-15.0 [facility] Comment on above: Performed By: #### C BC #### [facility] [address] [place] [address] Dr. Radha Brown Hematocrit (Bld) [Volume fraction] 35.6 % Critically low 42.0-54.0 [facility] Comment on above: Performed By: #### C BC #### [facility] [address] [place] [address] Dr. Radha Brown Hemoglobin (Bld) [Mass/Vol] 11.8 g/dL Critically low 14.0-18.0 [facility] Comment on above: Performed By: #### C BC #### [facility] [address] [place] [address] Dr. Radha Brown IG # 0.05 10e3/ul Critically high 0.00-0.03 [facility] Comment on above: Performed By: #### C BC #### [facility] [address] [place] [address] Dr. Radha Brown IG % 0.5 % Normal 0.0-0.5 [facility] Comment on above: Performed By: #### C BC #### [facility] [address] [place] [address] Dr. Radha Brown LYMPH # 1.8 103/ul Normal 1.2-3.8 [facility] Comment on above: Performed By: #### C BC #### [facility] [address] [place] [address] Dr. Radha Brown Lymphocytes/100 WBC (Bld) 19.3 % Critically low 20.5-60.0 [facility] Comment on above: Performed By: #### C BC #### [facility] [address] [place] [address] Dr. Radha Brown MANUAL DIFF REQ NO Normal [facility] Comment on above: Performed By: #### C BC #### [facility] [address] [place] [address] Dr. Radha Brown MCH (RBC) [Entitic mass] 29.2 pg Normal 25.9-34.0 [facility] Comment on above: Performed By: #### C BC #### [facility] Laboratory [address] [place] [address] Dr. Radha Brown MCHC (RBC) [Mass/Vol] 33.1 g/dL Normal 29.9-35.2 [facility] Comment on above: Performed By: #### C BC #### [facility] Laboratory [address] [place] [address] Dr. Radha Brown MCV (RBC) [Entitic vol] 88.1 fL Normal 80.0-94.0 [facility] Comment on above: Performed By: #### C BC #### [facility] Laboratory [address] [place] [address] Dr. Radha Brown MONO # 0.6 103/ul Normal 0.3-0.8 [facility] Comment on above: Performed By: #### C BC #### [facility] Laboratory [address] [place] [address] Dr. Radha Brown Monocytes/100 WBC (Bld) 6.4 % Normal 1.7-12.0 [facility] Comment on above: Performed By: #### C BC #### [facility] Laboratory [address] [place] [address] Dr. Radha Brown NEUT # 6.4 103/ul Normal 1.4-6.5 [facility] Comment on above: Performed By: #### C BC #### [facility] Laboratory [address] [place] [address] Dr. Radha Brown Neutrophils/100 WBC (Bld) 67.4 % Normal 43.0-75.0 [facility] Comment on above: Performed By: #### C BC #### [facility] Laboratory [address] [address] [address] Radha Brown Platelet mean volume (Bld) [Entitic vol] 9.2 fL Critically low 9.5-13.5 [facility] Comment on above: Performed By: #### C BC #### [facility] Laboratory [address] [address] [address] Radha Brown PLT 232 103/ul Normal 150-450 [facility] Comment on above: Performed By: #### C BC #### [facility] Laboratory [address] [address] [address] Radha Brown RBC 4.04 106/ul Critically low 4.70-6.10 [facility] Comment on above: Performed By: #### C BC #### [facility] Laboratory [address] [place] [address] Dr. Radha Brown WBC 9.5 103/ul Normal 4.0-11.0 [facility] Comment on above: Performed By: #### C BC #### [facility] Laboratory [address] [address] [address] Radha Brown FERRITINon 07-29-2022 Ferritin [Mass/Vol] 164.0 ng/mL Normal 26.0-388.0 [facility] Comment on above: Performed By: #### P SAD, FOL, FERR, FETIBC #### [facility] Laboratory [address] [place] [address] Dr. Radha Brown FOLATEon 07-29-2022 FOLATE 7.60 ng/mL Critically low 8.60-58.90 [facility] Comment on above: Performed By: #### P SAD, FOL, FERR, FETIBC #### [facility] Laboratory [address] [address] [address] Radha Brown GLYCOHEMOGLOBIN A1Con 2021 ADA RECOMMENDATION SEE BELOW Normal [facility] Comment on above: Result Comment: ADA RECOMMENDED LIMIT 4.0 - 6.0 ADA THERAPEUTIC TARGET < 7.0 ACTION SUGGESTED > 7.0 Performed By: #### A 1C #### [facility] Laboratory [address] [address] [address] Radha Brown Glucose [Mass/Vol] 134 mg/dL Normal [facility] Comment on above: Performed By: #### A 1C #### [facility] Laboratory [address] [address] [address] Radha Brown HbA1c (Bld) [Mass fraction] 6.3 % Critically high 4.5-6.2 [facility] Comment on above: Performed By: #### A 1C #### [facility] Laboratory [address] [address] [address] Radha Brown IRON AND TIBCon 07-29-2022 % SATURATION 22.1 % Normal [facility] Comment on above: Performed By: #### P SAD, FOL, FERR, FETIBC #### [facility] Laboratory [address] [place] [address] Dr. Radha Brown Iron [Mass/Vol] 78.0 ug/dL Normal 65.0-175.0 [facility] Comment on above: Performed By: #### P SAD, FOL, FERR, FETIBC #### [facility] Laboratory [address] [address] [address] Radha Brown TIBC DIRECT 353.0 ug/dL Normal 250.0-450.0 [facility] Comment on above: Performed By: #### P SAD, FOL, FERR, FETIBC #### [facility] Laboratory [address] [place] [address] Dr. Radha Brown LIPID PROFILEon 07-29-2022 CHOL-HDL RATIO NORM SEE BELOW Normal [facility] Comment on above: Result Comment: 3.3 - 4.4 LOW RISK 4.4 - 7.1 AVERAGE RISK 7.1 - 11.0 MODERATE RISK >11.0 HIGH RISK Performed By: #### P SAD, FOL, FERR, FETIBC #### [facility] Laboratory [address] [place] [address] Dr. Radha Brown Cholesterol [Mass/Vol] 137 mg/dL Normal <=200 [facility] Comment on above: Performed By: #### P SAD, FOL, FERR, FETIBC #### [facility] Laboratory [address] [address] [address] Radha Brown Cholesterol in HDL [Mass/Vol] 37 mg/dL Critically low 40-60 [facility] Comment on above: Performed By: #### P SAD, FOL, FERR, FETIBC #### [facility] Laboratory [address] [address] [address] Radha Brown Cholesterol in LDL [Mass/Vol] 67.0 mg/dL Normal [facility] Comment on above: Performed By: #### P SAD, FOL, FERR, FETIBC #### [facility] Laboratory [address] [address] [address] Radha Brown Cholesterol.total/Ch olesterol in HDL [Mass ratio] 3.7 {ratio} Normal [facility] Comment on above: Performed By: #### P SAD, FOL, FERR, FETIBC #### [facility] Laboratory [address] [place] [address] Dr. Radha Brown HDL NORMAL > or = 60 mg/dl - LOW CARDIOVASCULAR RISK <40 mg/dl - HIGH CARDIOVASCULAR RISK Normal [facility] Comment on above: Performed By: #### P SAD, FOL, FERR, FETIBC #### [facility] Laboratory [address] [address] [address] Radha Brown LDL CALC NORMAL SEE BELOW Normal [facility] Comment on above: Result Comment: <100 mg/dl OPTIMAL 100 - 129 mg/dl NEAR OR ABOVE OPTIMAL 130 - 159 mg/dl BORDERLINE HIGH 160 - 189 mg/dl HIGH >190 mg/dl VERY HIGH Performed By: #### P SAD, FOL, FERR, FETIBC #### [facility] Laboratory [address] [place] [address] Dr. Radha Brown Triglyceride [Mass/Vol] 165 mg/dL Critically high <=150 [facility] Comment on above: Performed By: #### P SAD, FOL, FERR, FETIBC #### [facility] Laboratory [address] [address] [address] Radha Brown VLDL CALC 33.0 mg/dL Normal [facility] Comment on above: Performed By: #### P SAD, FOL, FERR, FETIBC #### [facility] Laboratory [address] [place] [address] Dr. Radha Brown MICROALBUMIN, RAND URon 11 mALB <1.3 Normal <=30.0 [facility] Comment on above: Performed By: #### M ALBR #### [facility] Laboratory [address] [place] [address] Dr. Radha Brown PROF CHEM 8 (BAS METB)on Anion gap [Moles/Vol] 9.1 mmol/L Normal [facility] Comment on above: Performed By: #### P SAD, FOL, FERR, FETIBC #### [facility] Laboratory [address] [address] [address] Radha Brown Calcium [Mass/Vol] 8.6 mg/dL Normal 8.5-10.1 [facility] Comment on above: Performed By: #### P SAD, FOL, FERR, FETIBC #### [facility] Laboratory [address] [address] [address] Radha Brown Chloride [Moles/Vol] 106 mmol/L Normal 98-107 [facility] Comment on above: Performed By: #### P SAD, FOL, FERR, FETIBC #### [facility] Laboratory [address] [place] [address] Dr. Radha Brown CO2 [Moles/Vol] 27.1 mmol/L Normal 21.0-32.0 [facility] Comment on above: Performed By: #### P SAD, FOL, FERR, FETIBC #### [facility] Laboratory [address] [address] [address] Radha Brown Creatinine [Mass/Vol] 1.19 mg/dL Normal 0.70-1.30 [facility] Comment on above: Performed By: #### P SAD, FOL, FERR, FETIBC #### [facility] Laboratory [address] [place] [address] Dr. Radha Brown EGFR-AF TRINIDADIAN >60 Normal >=60 [facility] Comment on above: Performed By: #### P SAD, FOL, FERR, FETIBC #### [facility] Laboratory [address] [place] [address] Dr. Radha Brown EGFR-NON AF TRINIDADIAN 59 mL/min/1.73m2 Critically low >=60 [facility] Comment on above: Performed By: #### P SAD, FOL, FERR, FETIBC #### [facility] Laboratory [address] [address] [address] Radha Brown Glucose [Mass/Vol] 137 mg/dL Critically high 74-106 [facility] Comment on above: Performed By: #### P SAD, FOL, FERR, FETIBC #### [facility] Laboratory [address] [address] [address] Radha Brown Potassium [Moles/Vol] 4.2 mmol/L Normal 3.5-5.1 [facility] Comment on above: Performed By: #### P SAD, FOL, FERR, FETIBC #### [facility] Laboratory [address] [address] [address] Radha Brown Sodium [Moles/Vol] 138 mmol/L Normal 136-145 [facility] Comment on above: Performed By: #### P SAD, FOL, FERR, FETIBC #### [facility] Laboratory [address] [address] [address] Radha Brown Urea nitrogen [Mass/Vol] 22.0 mg/dL Critically high 7.0-18.0 [facility] Comment on above: Performed By: #### P SAD, FOL, FERR, FETIBC #### [facility] [address] [address] [address] Radha Brown Urea nitrogen/Creatinine [Mass ratio] 18.5 mg/mg Normal [facility] Comment on above: Performed By: #### P SAD, FOL, FERR, FETIBC #### [facility] [address] [address] [address] Radha Brown GLYCOHEMOGLOBIN A1Con 2021 ADA RECOMMENDATION SEE BELOW Normal [facility] Comment on above: Result Comment: ADA RECOMMENDED LIMIT 4.0 - 6.0 ADA THERAPEUTIC TARGET < 7.0 ACTION SUGGESTED > 7.0 Performed By: #### A 1C #### [facility] Laboratory [address] [address] [address] Radha Brown Glucose [Mass/Vol] 154 mg/dL Normal [facility] Comment on above: Performed By: #### A 1C #### [facility] Laboratory [id number] Radha Brown HbA1c (Bld) [Mass fraction] 7.0 % Critically high 4.5-6.2 [facility] Comment on above: Performed By: #### A 1C #### [facility] [address] [address] [address] Radha Brown Vital Signs Date Time Vital Sign Value Performing Clinician Facility 08-09-2024 09:14-0500 Body mass index (BMI) [Ratio] 30.81 kg/m2 ANATOLY Bartlett MD Work Phone: [facility] 08-09-2024 09:14-0500 Body temperature 97.39 [degF] ANATOLY Bartlett MD Work Phone: [facility] 08-09-2024 09:14-0500 Body weight 96 kg ANATOLY Bartlett MD Work Phone: [facility] 08-09-2024 09:14-0500 Diastolic blood pressure 62 mm[Hg] ANATOLY Bartlett MD Work Phone: [facility] 08-09-2024 09:14-0500 Heart rate 70 /min ANATOLY Bartlett MD Work Phone: [facility] 08-09-2024 09:14-0500 Respiratory rate 16 /min ANATOLY Bartlett MD Work Phone: [facility] 08-09-2024 09:14-0500 SaO2% (BldA) [Mass fraction] 97 % ANATOLY Bartlett MD Work Phone: [facility] 08-09-2024 09:14-0500 Systolic blood pressure 105 mm[Hg] ANATOLY Bartlett MD Work Phone: [facility] 07-30-2024 11:20-0500 Body height 175.26 cm [facility] 07-30-2024 11:20-0500 Body mass index (BMI) [Ratio] 31.3 kg/m2 [facility] 07-30-2024 11:20-0500 Body weight 96.27 kg [facility] 07-30-2024 11:20-0500 Diastolic blood pressure 70 mm[Hg] [facility] 07-30-2024 11:20-0500 Heart rate 62 /min [facility] 07-30-2024 11:20-0500 Respiratory rate 12 /min [facility] 07-30-2024 11:20-0500 Systolic blood pressure 111 mm[Hg] [facility] 03-27-2024 11:06-0400 Body height 175.26 cm [facility] 03-27-2024 11:06-0400 Body mass index (BMI) [Ratio] 32.3 kg/m2 [facility] 03-27-2024 11:06-0400 Body weight 99.33 kg [facility] 03-27-2024 11:06-0400 Diastolic blood pressure 64 mm[Hg] [facility] 03-27-2024 11:06-0400 Heart rate 72 /min [facility] 03-27-2024 11:06-0400 Respiratory rate 20 /min [facility] 03-27-2024 11:06-0400 Systolic blood pressure 98 mm[Hg] [facility] 02-15-2024 09:44-0400 Body mass index (BMI) [Ratio] 31.83 kg/m2 ANATOLY Bartlett MD Work Phone: [facility] 02-15-2024 09:44-0400 Body temperature 97.3 [degF] ANATOLY Bartlett MD Work Phone: [facility] 02-15-2024 09:44-0400 Body weight 99.2 kg ANATOLY Bartlett MD Work Phone: [facility] 02-15-2024 09:44-0400 Diastolic blood pressure 69 mm[Hg] ANATOLY Bartlett MD Work Phone: [facility] 02-15-2024 09:44-0400 Heart rate 66 /min ANATOLY Bartlett MD Work Phone: [facility] 02-15-2024 09:44-0400 Respiratory rate 18 /min ANATOLY Bartlett MD Work Phone: [facility] 02-15-2024 09:44-0400 Systolic blood pressure 109 mm[Hg] ANATOLY Bartlett MD Work Phone: [facility] 08-17-2023 10:03-0500 Body temperature 96.91 [degF] ANATOLY Bartlett MD Work Phone: [facility] 08-17-2023 10:03-0500 Body weight 104.78 kg ANATOLY Bartlett MD Work Phone: [facility] 08-17-2023 10:03-0500 Diastolic blood pressure 75 mm[Hg] ANATOLY Bartlett MD Work Phone: [facility] 08-17-2023 10:03-0500 Heart rate 62 /min ANATOLY Bartlett MD Work Phone: [facility] 08-17-2023 10:03-0500 Respiratory rate 16 /min ANATOLY Bartlett MD Work Phone: [facility] 08-17-2023 10:03-0500 SaO2% (BldA) [Mass fraction] 95 % ANATOLY Bartlett MD Work Phone: [facility] 08-17-2023 10:03-0500 Systolic blood pressure 156 mm[Hg] ANATOLY Bartlett MD Work Phone: [facility] 07-26-2023 11:00-0500 Body height 175.26 cm Nico Ball Other [facility] Other 07-26-2023 11:00-0500 Body mass index (BMI) [Ratio] 33.37 kg/m2 Nico Ball Other [facility] Other 07-26-2023 11:00-0500 Body weight 102.51 kg Nico Ball Other [facility] Other 07-26-2023 11:00-0500 Diastolic blood pressure 83 mm[Hg] Nico Ball Other [facility] Other 07-26-2023 11:00-0500 Respiratory rate 12 /min Nico Ball Other [facility] Other 07-26-2023 11:00-0500 Systolic blood pressure 133 mm[Hg] Nico Ball Other [facility] Other 11-29-2022 14:30-0400 Body height 175.26 cm Nico Ball Other [facility] Other 11-29-2022 14:30-0400 Body mass index (BMI) [Ratio] 34.58 kg/m2 Nico Ball Other [facility] Other 11-29-2022 14:30-0400 Body weight 106.23 kg Nico Ball Other [facility] Other 11-29-2022 14:30-0400 Diastolic blood pressure 71 mm[Hg] Nico Ball Other [facility] Other 11-29-2022 14:30-0400 Respiratory rate 12 /min Nico Ball Other [facility] Other 11-29-2022 14:30-0400 Systolic blood pressure 118 mm[Hg] Nico Ball Other [facility] Other 11-01-2022 11:22-0500 Blood Pressure Location HENRIQUE LANDRUM [facility] 11-01-2022 11:22-0500 Diastolic blood pressure 80 mm[Hg] HENRIQUE LANDRUM [facility] 11-01-2022 11:22-0500 Heart rate 68 /min HENRIQUE LANDRUM [facility] 11-01-2022 11:22-0500 Respiratory rate 16 /min HENRIQUE LANDRUM [facility] 11-01-2022 11:22-0500 Systolic blood pressure 137 mm[Hg] HENRIQUE LANDRUM [facility] 08-18-2022 10:22-0500 Body temperature 96.21 [degF] ANATOLY Bartlett MD Work Phone: [facility] 08-18-2022 10:22-0500 Body weight 105.23 kg ANATOLY Bartlett MD Work Phone: [facility] 08-18-2022 10:22-0500 Diastolic blood pressure 55 mm[Hg] ANATOLY Bartlett MD Work Phone: [facility] 08-18-2022 10:22-0500 Heart rate 78 /min ANATOLY Bartlett MD Work Phone: [facility] 08-18-2022 10:22-0500 Respiratory rate 18 /min ANATOLY Bartlett MD Work Phone: [facility] 08-18-2022 10:22-0500 SaO2% (BldA) [Mass fraction] 98 % ANATOLY Bartlett MD Work Phone: [facility] 08-18-2022 10:22-0500 Systolic blood pressure 125 mm[Hg] ANATOLY Bartlett MD Work Phone: [facility] 02-17-2022 09:51-0400 Body temperature 96.1 [degF] ANATOLY Bartlett MD Work Phone: [facility] 02-17-2022 09:51-0400 Body weight 100.7 kg ANATOLY Bartlett MD Work Phone: [facility] 02-17-2022 09:51-0400 Diastolic blood pressure 75 mm[Hg] ANATOLY Bartlett MD Work Phone: [facility] 02-17-2022 09:51-0400 Heart rate 66 /min ANATOLY Bartlett MD Work Phone: [facility] 02-17-2022 09:51-0400 Respiratory rate 16 /min ANATOLY Bartlett MD Work Phone: [facility] 02-17-2022 09:51-0400 SaO2% (BldA) [Mass fraction] 97 % ANATOLY Bartlett MD Work Phone: [facility] 02-17-2022 09:51-0400 Systolic blood pressure 120 mm[Hg] ANATOLY Bartlett MD Work Phone: [facility] Encounters Encounter Date Encounter Type Care Provider Facility Start: 08-09-2024 End: 08-09-2024 ambulatory NICO Ortega TACOMA Facility:[facility] Start: 08-09-2024 End: 08-09-2024 Patient encounter procedure Ronda Bartlett MD Work Phone: Radiation Oncology Comment on above: Cancer of prostate w /med recur risk (T2b-c or [place]af 7 or PSA 10-20) (HCC) (Primary Dx) Start: 07-30-2024 End: 07-30-2024 ambulatory [facility] Work Phone: Start: 07-30-2024 End: 07-30-2024 Patient encounter procedure [facility] Physician [facility] Work Phone: Start: 07-27-2024 Patient encounter procedure [facility] Start: 07-24-2024 Non-patient / Non-visit [facility] Work Phone: Start: 07-03-2024 End: 07-03-2024 Sary Kenny DO Work Phone: [facility] Comment on above: Age-related nuclear cataract of both eyes Start: 07-02-2024 End: 07-02-2024 Refill Conchita Kenny DO Work Phone: [facility] Comment on above: Age-related nuclear cataract of both eyes (Primary Dx) Start: 05-14-2024 End: 05-14-2024 Bamboo flowsheet Conchita Kenny DO Work Phone: [facility] Start: 05-14-2024 End: 05-14-2024 Bamboo flowsheet Conchita Kenny DO Work Phone: [facility] Start: 05-14-2024 End: 05-14-2024 ambulatory CONCHITA KENNY Not Available Start: 03-27-2024 End: 03-27-2024 ambulatory [facility] Work Phone: Start: 03-27-2024 End: 03-27-2024 Patient encounter procedure [facility] Work Phone: Start: 03-26-2024 Non-patient / Non-visit [facility] Work Phone: Start: 03-05-2024 End: 03-05-2024 ambulatory HENRIQUE LANDRUM Facility:[facility] Start: 03-05-2024 End: 03-05-2024 Patient encounter procedure HENRIQUE LANDRUM [facility] Start: 02-15-2024 End: 02-15-2024 Patient encounter procedure Ronda Bartlett MD Work Phone: Radiation Oncology Comment on above: Cancer of prostate w /med recur risk (T2b-c or [place] 7 or PSA 10-20) (HCC) (Primary Dx) Start: 02-15-2024 End: 02-15-2024 ambulatory NICO LINO Facility:[facility] Start: 02-14-2024 Non-patient / Non-visit [facility] Work Phone: Start: 08-17-2023 End: 08-17-2023 Patient encounter procedure Ronda Bartlett MD Work Phone: Radiation Oncology Comment on above: Malignant neoplasm o f prostate (HCC) (Primary Dx) Start: 08-17-2023 End: 08-17-2023 ambulatory NICO LINO Facility:[facility] Start: 07-26-2023 End: 07-26-2023 ambulatory Nico Lino Other [facility] Other Start: 07-26-2023 Patient encounter procedure Nico Lino [facility] Start: 07-17-2023 End: 07-17-2023 ambulatory Nico Lino Other [facility] Other Start: 07-17-2023 Telephone encounter Nico Bond [facility] Start: 04-04-2023 End: 04-04-2023 ambulatory Nico Lino Other [facility] Other Start: 04-04-2023 Telephone encounter Nico Bond [facility] Start: 01-05-2023 End: 01-05-[address] NICO LINO Facility: Start: 11-29-2022 End: 11-30-[address] NICO LINO [facility] Other Start: 11-29-2022 Office outpatient vi sit 25 minutes Nico Lino [facility] Start: 11-01-2022 End: 11-01-2022 Patient encounter procedure HENRIQUE LANDRUM [facility] Start: 08-18-2022 End: 08-18-2022 ambulatory Irlanda Castro APRN.RADIOLOGY TRANSPORTER Work Phone: Hematology/Oncology Comment on above: Prostate cancer (HCC ) Start: 08-18-2022 End: 08-18-2022 Patient encounter procedure Irlanda Castro APRN.KEKE Work Phone: [facility] Comment on above: Prostate cancer (HCC ) (Primary Dx) Start: 07-29-2022 End: 07-30-[address] NICO LINO Facility:[facility] Start: 07-25-2022 Adult health examination Nico Lino Other [facility] Other Start: 02-17-2022 End: 02-17-2022 Patient encounter procedure Ronda Bartlett MD Work Phone: Radiation Oncology Comment on above: Prostate cancer (HCC ) (Primary Dx) Start: 02-16-2022 End: 02-17-[address] NICO LINO Facility:[facility] Start: 01-16-[address] VIKCI BARTLETT Fac ility:[facility] Start: 08-05-2021 End: 08-05-2021 Subsequent hospital visit by physician [facility] Work Phone: Radiology [facility] Start: 07-19-2021 End: 07-19-2021 Pre-procedure evaluation check Nico Lino Other [facility] Other Start: 10-24-2014 End: 10-25-2014 Patient encounter DEFAULT PHYSICIAN Facility:[facility] Procedures Date Procedure Procedure Detail Performing Clinician Start: 07-30-2024 PSA screening [facility] michael Start: 05-14-2024 Oph bmtry prtl coher intrfrmtry io lens pwr brunilda Conchita Kenny DO Work Phone: Start: 05-14-2024 End: 05-14-2024 Ophth medical xm&eval compre new pt 1/> vst Age-related nuclear cataract of both eyes Conchita Kenny DO Work Phone: Comment on above: Age-related nuclear cataract of both eyes (Primary Dx) Start: 02-14-2024 PSA screening Ronda Bartlett MD Work Phone: Start: 04-04-2023 PSA screening [facility] Provi michael Start: 07-29-2022 End: 07-29-2022 PSA screening [facility] Provider Comment on above: Performed By: #### P ORLIN, ALANA, FERR, FETIBC #### [facility] [address] [place] [address] Dr. Radha Brown Start: 02-17-2022 Adult depression screening assessment ANATOLY Bartlett MD Work Phone: Start: 02-16-2022 End: 02-16-2022 PSA screening [facility] Provider Comment on above: Performed By: #### P SAD #### [facility] [address] [place] [address] Dr. Radha Brown Start: 07-07-2021 Brachytherapy implan t (physical object) HENRIQUE LANDRUM Start: 01-29-2021 Biopsy of prostate ERVA LANDRUM Start: 09-18-2017 Colonoscopy HENRIQUE CARPENTER Start: [...] DTaP,Tdap,Td Vaccine (2 - Td or Tdap) [facility] Start: 12-10-2024 End: 12-10-2024 Patient encounter procedure 12/10/2024 2:45 PM EDT Office Visit Radiation Oncology [address] [place] [address] [place] [address] Ronda Bartlett MD [address] [place] [address] [place] [address] 4 month follow up Radiation Oncology Comment on above: 4 month follow up Start: 12-07-2024 End: 03-08-2025 Prostate specific Ag [Mass/volume] in Serum or Plasma PROSTATE-SPECIFIC ANTIGEN DIAGNOSTIC Lab Routine Cancer of prostate w/med recur risk (T2b-c or [place] 7 or PSA 10-20) (HCC) Expected: 12/07/2024, Expires: 03/08/2025 [facility] Work Phone: Comment on above: Expected: 12/07/2024 , Expires: 03/08/2025 Start: 12-07-2024 End: 03-08-2025 Testosterone [Mass/volume] in Serum or Plasma TESTOSTERONE, TOTAL BY IMMUNOASSAY (ADULT MALES, OR INDIVIDUALS ON TESTOSTERONE THERAPY) Lab Routine Cancer of prostate w/med recur risk (T2b-c or [place] 7 or PSA 10-20) (HCC) Expected: 12/07/2024, Expires: 03/08/2025 [facility] Comment on above: Expected: 12/07/2024 , Expires: 03/08/2025 Start: 08-17-2024 End: 11-16-2024 Prostate specific Ag [Mass/volume] in Serum or Plasma PROSTATE-SPECIFIC ANTIGEN DIAGNOSTIC Lab Routine Cancer of prostate w/med recur risk (T2b-c or [place] 7 or PSA 10-20) (HCC) Expected: 08/17/2024, Expires: 11/16/2024 [facility] Work Phone: Comment on above: Expected: 08/17/2024 , Expires: 11/16/2024 Start: 08-08-2024 End: 08-08-2024 Patient encounter procedure 08/08/2024 9:15 AM EST Office Visit Radiation Oncology [address] [place] [address] Ronda Bartlett MD [address] [place] [address] 6 month rv [facility] Comment on above: 6 month rv Start: 07-31-2024 Diabetes Screening Diabetes Screenin [facility] Start: 06-24-2024 End: 06-24-2024 Patient encounter procedure 06/24/2024 9:05 AM EDT Procedure Visit [facility] Conchita Kenny, DO [address] [place] [address] [facility] Start: 06-10-2024 End: 06-10-2024 Patient encounter procedure 06/10/2024 10:25 AM EDT Procedure Visit [facility] Conchita Kenny, DO [address] [place] [address] [facility] Start: 05-19-2024 Covid-19 Vaccine () Covid-19 Vaccine () [facility] Start: 05-19-2024 Influenza vaccination Influenza Vacc ine (#1) [facility] Start: 05-14-2024 End: 05-14-2024 Patient encounter procedure 05/14/2024 1:45 PM EDT Office Visit [facility] [address] [place] [address] Conchita Kenny, DO [address] [place] [address] Arrived [facility] Comment on above: Arrived Start: 02-15-2024 End: 05-16-2024 Prostate specific Ag [Mass/volume] in Serum or Plasma PSA/PROSTSPECAG DIAG Lab Routine Malignant neoplasm of prostate (HCC) Expected: 02/15/2024 (Approximate), Expires: 05/16/2024 [facility] Work Phone: Comment on above: Expected: 02/15/2024 (Approximate), Expires: 05/16/2024 Start: 10-14-2023 Covid-19 Vaccine ( season) Covid-19 Vaccine () [facility] Start: 09-18-2023 Advance Directive Discussion Advance Directive Discussion [facility] Start: 09-18-2023 Behavioral Health Screening Behavioral Health Screening [facility] Start: 08-18-2023 End: 10-18-2023 Prostate specific Ag [Mass/volume] in Serum or Plasma PSA/PROSTSPECAG DIAG Lab Routine Prostate cancer (HCC) Expected: 08/18/2023, Expires: 10/18/2023 [facility] Work Phone: Comment on above: Expected: 08/18/2023 , Expires: 10/18/2023 Start: 02-17-2023 Adult depression screening assessment DEPRESSION SCREENING [facility] Start: 09-18-2022 Advance Directive Discussion Advance Directive Discussion [facility] Start: 09-18-2022 Depression Assessment Depression Ass essment [facility] Start: 08-19-2022 End: 10-19-2022 Prostate specific Ag [Mass/volume] in Serum or Plasma PSA/PROSTSPECAG DIAG Lab Routine Prostate cancer (HCC) Expected: 08/19/2022 (Approximate), Expires: 10/19/2022 [facility] Work Phone: Comment on above: Expected: 08/19/2022 (Approximate), Expires: 10/19/2022 Start: 09-18-2021 ADVANCE DIRECTIVE DISCUSSION ADVANCE DIRECTIVE DISCUSSION [facility] Start: 09-18-2021 DEPRESSION ASSESSMENT DEPRESSION ASS ESSMENT [facility] Start: 05-03-2021 COVID-19 VACCINE (3 - Booster for Moderna series) COVID-19 VACCINE (3 - Booster for Moderna series) [facility] Start: 2020 RSV Vaccine (1 - 1-d ose 75+ series) RSV Vaccine (1 - 1-dose 75+ series) [facility] Start: 10-04-2019 Pneumococcal Vaccine : 65+ (2 - PCV) Pneumococcal Vaccine: 65+ (2 - PCV) [facility] Start: 10-04-2019 Pneumococcal Vaccine : 65+ (2 of 2 - PCV) Pneumococcal Vaccine: 65+ (2 of 2 - PCV) [facility] Start: 10-04-2019 Pneumococcal Vaccine : 65+ Years (2 of 2 - PCV) Pneumococcal Vaccine: 65+ Years (2 of 2 - PCV) [facility] Start: 10-04-2019 PNEUMOCOCCAL: 65+ (2 - PCV) PNEUMOCOCCAL: 65+ (2 - PCV) [facility] Start: 2005 RSV Vaccine (1 - 1-d ose 60+ series) RSV Vaccine (1 - 1-dose 60+ series) [facility] Start: 1995 SHINGRIX VACCINE (1 of 2) SHINGRIX VACCINE (1 of 2) [facility] Start: 1990 DIABETES SCREEN DIABETES SCREEN [facility] Start: 1964 SHINGRIX VACCINE (1 of 2) SHINGRIX VACCINE (1 of 2) [facility] Start: 1964 Urine microalbumin profile DTAP,TDAP,TD (1 - Tdap) [facility] Start: 1963 Anxiety Screening Anxiety Screening [facility] Start: 1963 Depression Screening Depression Scre ening [facility] Start: 1963 HEPATITIS C SCREENING HEPATITIS C [facility] Start: 1963 Hepatitis C screening Hepatitis C [facility] Comprehensive metabo lic 2000 panel - Serum or Plasma [facility] Microalbumin [Mass/volume] in Urine [facility] Immunizations Immunization Date Immunization Notes Care Provider Fa cili 07-30-2024 influenza, high dose seasonal, preservative-free [facility] 06-14-2023 COVID-19 Vaccine Pfi zer - Documentation Purposes Only Nico Lino Other [facility] 06-14-2023 Flu Shot - Documentation Purposes Only Nico Lino Other [employer] [facility] [employer] Other 06-14-2023 influenza virus vaccine, unspecified formulation Conchita Kenny DO Work Phone: [facility] 01-05-2023 tetanus toxoid, redu doni diphtheria toxoid, and acellular pertussis vaccine, adsorbed Nico Lino Other [employer] [facility] [employer] Other 07-25-2022 influenza (aIIV4) vaccine, age 65+ yr, quadrivalent, PF (FLUAD QUAD) ANATOLY Bartlett MD Work Phone: [facility] 07-25-2022 influenza virus vaccine, split virus (incl. purified surface antigen) Nico Lino Other [employer] Other 07-25-2022 influenza virus vaccine, unspecified formulation HENRIQUE LANDRUM [facility] 07-23-2022 SARS-CoV-2 (COVID-19 ) [id number] HENRIQUE LANDRUM [facility] 05-05-2022 SARS-CoV-2 mRNA ([id number]-hkraq se) vaccine HENRIQUE LANDRUM [facility] 06-10-2021 influenza nasal, unspecified formulation ANATOLY Bartlett MD Work Phone: [facility] 06-10-2021 influenza virus vaccine, split virus (incl. purified surface antigen) Nico Lino Other [employer] Other 06-10-2021 influenza virus vaccine, unspecified formulation HENRIQUE LANDRUM [facility] 06-10-2021 Seasonal trivalent influenza vaccine, adjuvanted, preservative free ANATOLY Bartlett MD Work Phone: [facility] 12-01-2020 COVID-19 vaccine, fu ll dose (MODERNA) ANATOLY Bartlett MD Work Phone: [facility] 11-05-2020 COVID-19 vaccine, fu ll dose (MODERNA) ANATOLY Bartlett MD Work Phone: [facility] 07-09-2020 influenza virus vaccine, split virus (incl. purified surface antigen) Nico Lino Other [employer] Other 07-09-2020 influenza virus vaccine, unspecified formulation [facility] 06-04-2019 influenza nasal, unspecified formulation ANATOLY Bartlett MD Work Phone: [facility] 06-04-2019 influenza virus vaccine, unspecified formulation HENRIQUE LANDRUM [facility] 06-04-2019 Seasonal trivalent influenza vaccine, adjuvanted, preservative free ANATOLY Bartlett MD Work Phone: [facility] 10-04-2018 pneumococcal Conjuga te, unspecified formulation; Translations: [Need for prophylactic vaccination against Streptococcus pneumoniae (pneumococcus)] Nico Lino Other [employer] [facility] [employer] Other 10-04-2018 pneumococcal polysaccharide vaccine, 23 valent ANATOLY Bartlett MD Work Phone: [facility] 06-24-2015 influenza virus vaccine, split virus (incl. purified surface antigen) Nico Lino Other [employer] [facility] [employer] Other 06-24-2015 influenza virus vaccine, unspecified formulation [facility] 06-24-2015 pneumococcal conjuga te vaccine, 13 valent Nico Lino Other [facility] Payers Date Payer Category Payer Medicaid [employer] MEDICARE A DVANTAGE [id number] 2020 Unknown 2020 Unknown MMO MMO [employer]AD[employer] NAL [id number] 2020-Present [phone] [address] [place] [address] Indemnity [id number] 2011 Medicare MEDICARE MEDICAR E A AND B [id number] 2011-Present [phone] [place] [address] Medicare [id number] 2011 Medicare [id number] 1959 Medicare [id number] 1959 Medicare [id number] 1959 Self-pay [id number] 1959 Unknown [id number] 1945 Unknown [id number] 1945 Unknown [id number] 1945 Unknown [id number] 1945 Unknown [id number] 1945 Unknown [id number] 1945 Unknown [id number] 1945 Unknown [id number] 1945 Unknown [id number] Social History Date Type Detail Facility Start: 03-03-2021 End: 05-14-2024 Tobacco smoking status NHIS Ex-smoker [facility] Start: 03-03-1957 End: 06-16-1961 History of tobacco use Current smoker [facility] Start: 03-03-2021 End: 08-17-2023 Cigarettes smoked current (pack per day) - Reported 0.5 [facility] Start: 03-03-2021 End: 08-09-2024 Tobacco use and exposure Smokeless tobacco non-user [facility] Start: 02-17-2022 End: 08-09-2024 Alcohol intake Current drinker of alcohol (finding) [facility] Start: 03-03-2021 History SDOH Alcohol Comment Socially [facility] Start: 1945 Sex Assigned At Not on file C [facility] Start: 07-06-2021 End: 08-18-2022 Exposure to SARS-CoV-2 (event) Not sure [facility] Start: 03-03-1957 End: 03-03-1961 History of tobacco use Cigarette Smoker [facility] Start: 08-18-2022 End: 08-17-2023 Sex Assigned At Male [facility] Adult Depression Screening Assessment 0 [facility] Start: 1945 Sex Assigned At Male F [facility] Start: 07-30-2024 Sex Male (finding) [facility] Tobacco smoking stat NHIS Tobacco smoking consumption unknown [facility] Medical Equipment Procedure Code Equipment Code Equipment Origin al Text Equipment Identifier Dates PROSTATIC BRACHYTHERAPY Ronda Bartlett MD 07/07/21 Unknown Other FDA Start: 07-07-2021 PROSTATIC BRACHYTHERAPY Ronda Bartlett MD 07/07/21 Unknown Other FDA Start: 07-07-2021 Functional Status Date Assessment Result Facility 11-01-2022 Functional Status N/A [facility] Clinical Notes 02-17-2022 to 08-09-2024 Note Date & Type Note Facility 08-09-2024 Evaluation note Diagnosis Cancer of prostate w/med recur risk (T2b-c or [place] 7 or PSA 10-20) (HCC)- Primary Malignant neoplasm of prostate documented in this encounter [facility]11-22-2024 NoteHNO ID: [id number] Author: Ronda BARTLETT MD Service: ? Author Type: Physician Type: Progress Notes Filed: 08/09/2024 09:31 Note Text: Radiation Oncology - Follow Up Note PATIENT NAME: Segun Johnson PATIENT DIAGNOSIS: Prostate adenocarcinoma, initial PSA 11.5, biopsy Northfield score 4 + 3 = 7 (grade [...] PSA HISTORY: PSA. (no units) Date Value 07/30/2024 1.21 02/14/2024 0.61 04/04/2023 <0.13 07/29/2022 <0.13 ALLERGIES No Known Allergies folic acid 1 mg tablet once daily. metFORMIN (GLUCOPHAGE) 1,000 mg tablet TAKE 1 TABLET BY MOUTH 2 TIMES A DAY with breakfast and evening meal prednisoLONE acetate (PRED FORTE) 1 % ophthalmic suspension Administer 1 drop into both eyes four times a day (morning, noon, evening, bedtime) for 14 days. cyanocobalamin, vitamin B-12, (VITAMIN B12 ORAL) Take by mouth. loperamide HCl (IMODIUM ORAL) Take by mouth. [...] aid urination: n - Total AUA Score: 8 Bowel movement frequency: 1/day Bowel movement quality: normal Blood per rectum: none ADT: Lupron for approximately 12 months currently off PHYSICAL EXAM: BP 105/62 Pulse 70 Temp 36.3 ?C (97.4 ?F) Resp 16 Wt 96 kg (211 lb 10.3 oz) SpO2 97% BMI 30.81 kg/m? KPS: 100 General appearance: Alert and oriented. No acute distress. Rectal exam def Extremities: No deformities, edema, skin discoloration, clubbing or cyanosis. Lymph Nodes: No cervical lymphadenopathy, No supraclavicular lymphadenopathy, No axillary lymphadenopathy. Skin: Skin color, texture, turgor normal, no suspicious rashes or lesions. 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 Clinically doing well. PSA has climbed, still may be a factor of androgen recovery. Recommend recheck in 3 to 4 months along with testosterone. If continues to climb consider PSMA PET. Signed by: Ronda Bartlett MD cc: Nico Lino ([facility]) [address] [place] [address] Dr. Storey Portions of the above note extracted and edited from previous visit as well as active information included in the EMR.[facility] [place]11-22-2024 History of Present illness Narrative* Ronda Bartlett MD - 08/09/2024 9:19 AM EST Radiation Oncology - Follow Up Note PATIENT NAME: Segun Johnson PATIENT DIAGNOSIS: Prostate adenocarcinoma, initial PSA 11.5, biopsy Northfield score 4 + 3 = 7 (grade [...] PSA HISTORY: PSA. (no units) Date Value 07/30/2024 1.21 02/14/2024 0.61 04/04/2023 <0.13 07/29/2022 <0.13 ALLERGIES No Known Allergies folic acid 1 mg tablet once daily. metFORMIN (GLUCOPHAGE) 1,000 mg tablet TAKE 1 TABLET BY MOUTH 2 TIMES A DAY with breakfast and evening meal prednisoLONE acetate (PRED FORTE) 1 % ophthalmic suspension Administer 1 drop into both eyes four times a day (morning, noon, evening, bedtime) for 14 days. cyanocobalamin, vitamin B-12, (VITAMIN B12 ORAL) Take by mouth. loperamide HCl (IMODIUM ORAL) Take by mouth. [...] aid urination: n - Total AUA Score: 8 Bowel movement frequency: 1/day Bowel movement quality: normal Blood per rectum: none ADT: Lupron for approximately 12 months currently off PHYSICAL EXAM: BP 105/62 Pulse 70 Temp 36.3 C (97.4 F) Resp 16 Wt 96 kg (211 lb 10.3 oz) SpO2 97% BMI 30.81 kg/m KPS: 100 General appearance: Alert and oriented. No acute distress. Rectal exam def Extremities: No deformities, edema, skin discoloration, clubbing or cyanosis. Lymph Nodes: No cervical lymphadenopathy, No supraclavicular lymphadenopathy, No axillary lymphadenopathy. Skin: Skin color, texture, turgor normal, no suspicious rashes or lesions. ASSESSMENT/PLAN: Prostate adenocarcinoma, initial PSA 11.5, biopsy [place]field score 4 + 3 = 7 (grade group 3), clinical stage T2b, N0, M0, stage IIC [T1-T2, N0, M0, PSA <20, GG 3] (AJCC 8th ed.), s/pPelvic radiation and prostate brachytherapy boost. Clinically doing well. PSA has climbed, still may be a factor of androgen recovery. Recommend recheck in 3 to 4 months along with testosterone. If continues to climb consider PSMA PET. Signed by: Ronda Bartlett MD cc: Nico Lino ([facility]) [facility] [place] [address] Dr. Storey Portions of the above note extracted and edited from previous visit as well as active information included in the EMR. [facility] Nurse Note* Jillian Waddell LPN - 08/09/2024 9:15 AM EST AUA= 8 [facility]11-22-2024 Nurse Note* Jillian Waddell LPN - 08/09/2024 9:15 AM EST AUA= 8 [facility] History of Present illness Narrative* Conchita Kenny, - 05/14/2024 1:45 PM EDT Images from the original note were not included. Subjective Patient ID: Segun Johnson is a 78 y.o. male. Chief Complaint Cataract HPI Cataract In both eyes. Associated symptoms include blurred vision. Frequency is constant. Context: mid-rangevision, near vision, reading, watching TV, computer work and driving. Affected activities include reading, working on the computer, night driving, watching TV and daily activities. Treatments tried include glasses. Response to treatment was no improvement. Comments Cataract extraction (CE) eval for pt referred by dr Watson. Pt states vision seems duller. Pt states sugar levels are controlled. Not using any drops. No pm or defib No latex allergy Previously taken flomax Last edited by ANNETTE ALCALA on 05/14/2024 2:04 PM. Current Outpatient Medications (Ophthalmic Agents) Medication Sig Dispense Refill ketorolac (Acular) 0.5 % ophthalmic solution Administer 1 drop into affected eye(s) in the morning and 1 drop before bedtime. 5 mL 1 ofloxacin (Ocuflox) 0.3 % ophthalmic solution Administer 1 drop into the right eye 5 (five) times aday for 1 day Starting 1 day before surgery, continue after surgery as directed 5 mL 1 prednisoLONE acetate (Pred-Forte) 1 % ophthalmic suspension Administer 1 drop into both eyes in themorning and 1 drop at noon and 1 drop in the evening and 1 drop before bedtime. Do all this for 14 days. 5 mL 1 No current facility-administered medications for this visit. (Ophthalmic Agents) Current Outpatient Medications (Other) Medication Sig Dispense Refill atorvastatin (Lipitor) 80 MG tablet Take 80 mg by mouth at bedtime lisinopril 10 MG tablet .COMPLEX folic acid (Folvite) 1 MG tablet Take 1,000 mcg by mouth Daily glimepiride (Amaryl) 4 MG tablet TAKE 1 TABLET BY MOUTH IN THE MORNING 30 MINUTES BEFORE BREAKFAST metFORMIN (Glucophage) 1000 MG tablet TAKE 1 TABLET BY MOUTH 2 TIMES A DAY with breakfast and evening meal sertraline (Zoloft) 100 MG tablet Take 100 mg by mouth at bedtime No current facility-administered medications for this visit. (Other) Past Medical History: Diagnosis Date ASHD (arteriosclerotic heart disease) ([facility]) Cataract Diabetes mellitus with hyperglycemia ([facility]) Dry eyes Elevated cholesterol ([facility]) CATHY (generalized anxiety disorder) ([facility]) Hypertension ([facility]) Pernicious anemia Prostate cancer ([facility]) 2021 s/p Hormone tx, CTx, external beam RTx, RTx seeds No Known Allergies Review of Systems Constitutional: Negative. HENT: Negative. Eyes: Negative. Respiratory: Negative. Cardiovascular: Negative. Gastrointestinal: Negative. Genitourinary: Negative. Musculoskeletal: Negative. Skin: Negative. Neurological: Negative. Psychiatric/Behavioral: Negative. Hematological: Negative. Endocrine: Negative. Allergic/Immunologic: Negative. Objective Base Eye Exam Visual Acuity (Snellen - Linear) Right Left Dist cc 20/50 20/50 Correction: Glasses Tonometry (Applanation, 2:24 PM) Right Left Pressure 16 16 Pupils Pupils Right PERRL Left PERRL Visual Avalos Left Right Full Full Extraocular Movement Right Left Full Full Neuro/Psych Oriented x3: Yes Dilation Both eyes: 1.0% Mydriacyl @ 2:06 PM Additional Tests Keratometry K1 Minden K2 Minden Right 45.5 151 46.5 61 Left 45.75 22 47 112 Glare Testing High Right 20/200 Left 20/200 Slit Lamp and Fundus Exam External Exam Right Left External Rosacea Rosacea Slit Lamp Exam Right Left Lids/Lashes Blepharitis, Dermatochalasis - upper lid Blepharitis, Dermatochalasis - upper lid Conjunctiva/Sclera White and quiet White and quiet Cornea Decreased tear film Decreased tear film Anterior Chamber Deep and quiet Deep and quiet Iris Round and reactive Round and reactive Lens 3+ Nuclear sclerosis, 2+ Cortical cataract, Vacuoles 3+ Nuclear sclerosis, 2+ Cortical cataract, Vacuoles Anterior Vitreous Normal Normal Fundus Exam Right Left Disc Normal Normal Macula Normal Normal Vessels Normal Normal Periphery Normal Normal Refraction Wearing Rx Sphere Cylinder [place] Add Right -4.75 +0.00 180 +2.50 Left -5.75 -0.50 055 +2.50 Manifest Refraction Sphere Cylinder [place] Right -4.25 -1.25 110 Left -6.00 -1.00 055 Final Rx Sphere Cylinder [place] Dist VA Right -4.25 -0.75 110 20/40 Left -6.00 -1.00 055 20/40 Expiration Date: 05/14/2025 Assessment/Plan Age-related nuclear cataract of both eyes - Visually Significant Cataract, OU: I discussed the risks, benefits, alternatives, and expectations of cataract surgery. A complete ophthalmic exam was performed and it was determined that the cataracts were a primary source of vision decline, affecting activities of daily living, necessitating removal. Limited vision post-surgery may occur with pre-existing conditions affecting other areas of the eye or the brain was explained and the patient displayed an understanding. The overall objective is to improve ADLs, not eliminate glasses or restore vision to 20/20. Tests were reviewed - the different lens options were explained including the [id number] fees for any upgrades. Intraocular lens (IOL) selection may be altered either prior to or during the procedure based on the doctor's discretion including reverting to a traditional intraocular lens (IOL). They understood that there will exist the potential of glasses prescription need post surgery for near, distance or possibly both. The patient stated a full understanding and a desire to proceed with the procedure. The patient received cataract measurements and had any additional questions answered. - A complete exam was performed including a physical exam: General: AAOx3 and NAD, Lungs: Clear, Heart: RRR, Abdomen: S/NT/ND, Extremities: no pitting edema. - Coordination of care will be shared with Dr. Watson. Cataract Surgery for OS will take place - 06/10 and OD - 06/24. [id number] Evaluation note* Diagnosis Cancer of prostate w/med recur risk (T2b-c or Asaf 7 or PSA 10-20) (HCC)- Primary Malignant neoplasm of prostate documented in this encounter [facility]05-30-2024 History of Present illness Narrative* Rnoda Bartlett MD - 02/15/2024 10:00 AM EDT Radiation Oncology - Follow Up Note PATIENT NAME: Segun Johnson PATIENT DIAGNOSIS: Prostate adenocarcinoma, initial PSA 11.5, biopsy Northfield score 4 + 3 = 7 (grade [...] with PSA in 6 months. Signed by: Ronda Bartlett MD cc: Nico Lino ([facility]) [address] [place] [address] [address] Storey Portions of the above note extracted and edited from previous visit as well as active information included in the EMR. [facility] in [facility] encounter[facility]05-30-2024 NoteHNO ID: [id number] Author: Ronda BARTLETT MD Service: ? Author Type: Physician Type: Progress Notes Filed: 02/15/2024 11:26 Note Text: Radiation Oncology - Follow Up Note PATIENT NAME: Segun Johnson PATIENT DIAGNOSIS: Prostate adenocarcinoma, initial PSA 11.5, biopsy Northfield score 4 + 3 = 7 (grade [...] with PSA in 6 months. Signed by: Ronda Bartlett MD cc: Nico Lino ([facility]) [address] [place] [address] Dr. Storey Portions of the above note extracted and edited from previous visit as well as active information included in the EMR.[facility] [place]05-30-2024 Nurse Note* Venus Vasques MA - 02/15/2024 9:47 AM EDT AUA=9 [facility]04-01-2024 Nurse Note* Venus Vasques MA - 02/15/2024 9:47 AM EDT AUA=9 [facility]23 History of Present illness Narrative* Ronda Bartlett MD - 08/17/2023 10:15 AM EST [...] by: Ronda Bartlett MD cc: Nico Lino ([facility]) [address] [place] [address] Dr. Storey Portions of the above note extracted and edited from previous visit as well as active information included in the EMR. documented in this encounterOhio Valley Hospital11-30-2023 NoteHNO ID: [id number] Author: Ronda Bartlett MD Service: ? Author Type: Physician Type: Progress Notes Filed: 08/17/2023 10:17 AM Note Text: Radiation Oncology - Follow Up Note PATIENT NAME: Segun Johnson PATIENT DIAGNOSIS: Prostate adenocarcinoma, initial PSA 11.5, biopsy Northfield score 4 + 3 = 7 (grade [...] ASSESSMENT/PLAN: Prostate adenocarcinoma, initial PSA 11.5, biopsy Northfield score 4 + 3 = 7 (grade group 3), clinical stage T2b, N0, M0, stage IIC [T1-T2, N0, M0, PSA <20, GG 3] (AJCC 8th ed.), s/p Pelvic radiation and prostate brachytherapy boost. No evidence of recurrence or posttreatment problems. Plan to see patient back in 6 months with repeat PSA. Signed by: Ronda Bartlett MD cc: Nico Lino (Mikhail) [address] [place] [address] Dr. Storey Portions of the above note extracted and edited from previous visit as well as active information included in the EMR.[facility] [place] 08-17-2023 Nurse Note* Angélica Acharya, RN - 08/17/2023 10:07 AM EST AUA 7 Angélica Acharya RN documented in this encounterOhio Valley Hospital11-08-2023 Evaluation note* Encounter Date Diagnosis Assessment Notes [...] CD-10 - D51.0) Continue supplement, recheck CBC [facility] Other 07-18-2023 Evaluation note* Encounter Date Diagnosis Assessment Notes Treatment Notes Treatment Clinical Notes Mar, Type 2 diabetes mellitus with hyperglycemia, without long-term current use of insulin (ICD-10 - E11.65) [facility] Other 03-14-2023 Evaluation note* Encounter Date Diagnosis [...] Pernicious anemia (ICD-10 - D51.0) B12 monthly [facility] Other 02-14-2023 Hospital Discharge instructions Patient Education [...] urethra. Follow these instructions at home: Take ldin-zca-jnygilc and prescription medicines only as told by [...] 09/04/2006 Document Revised: 07/30/2019 Document Reviewed: 10/09/2017 Elsevier Patient Education 2020 [employer] Follow Up Care 05/03/2022 11:28:51 With:HENRIQUE LANDRUM PA-C, URL Address: [address] [place] [address] When:Within 18 Month(s) Comments:PSA [facility] 12-01-2022 History of Present illness Narrative* Irlanda Castro APRN.CNP - 08/18/2022 2:26 PM EST Segun Johnson returns for follow-up. He was seen and examined by Dr. Bartlett today. He urinates every 2-3 hours. He has occasional dribbling of urine. He denies any problems with his bowel. Patient was given his treatment summary and survivorship care plan for prostate cancer. Irlanda Castro APRN.CNP documented in this encounterOhio Valley Hospital12-01-2022 History of Present illness Narrative* Ronda Bartlett [...] ASSESSMENT/PLAN: Prostate adenocarcinoma, initial PSA 11.5, biopsy Northfield score 4 + 3 = 7 (grade group 3), clinical stage T2b, N0, M0, stage IIC [T1-T2, N0, M0, PSA <20, GG 3] (AJCC 8th ed.), s/pPelvic radiation and prostate brachytherapy boost. No evidence of recurrence of posttreatment problems. Plan to see patient back in 6 months with repeat PSA. Signed by: Ronda Bartlett MD cc: Nico Lino (Mikhail) [facility] [place] [address] Dr. Storey Portions of the above note extracted and edited from previous visit as well as active information included in the EMR. documented in this encounterOhio Valley Hospital12-01-2022 Nurse Note* Angélica Acharya RN - 08/18/2022 10:30 AM EST AUA 14 Angélica Acharya RN documented in this encounterOhio Valley Hospital06-02-2022 History of Present illness Narrative* Ronda Bartlett [...] ASSESSMENT/PLAN: Prostate adenocarcinoma, initial PSA 11.5, biopsy Northfield score 4 + 3 = 7 (grade group 3), clinical stage T2b, N0, M0, stage IIC [T1-T2, N0, M0, PSA <20, GG 3] (AJCC 8th ed.), s/pPelvic radiation and prostate brachytherapy boost. PSA remains low. No clinical evidence recurrence of posttreatment problems. Plan to see patient back in 4 months with repeat PSA. Signed by: Ronda Bartlett MD cc: Nico Lino (Sanjeev) [address] [place] [address] Dr. Storey Portions of the above note extracted and edited from previous visit as well as active information included in the EMR. documented in this encounterOhio Valley Hospital06-02-2022 Nurse Note* Angélica Acharya RN - 02/17/2022 9:54 AM EDT AUA 10 Angélica Weyer, RN documented in this encounterOhio Valley HospitalEvaluation + Plan note Future Appointments Appointment Date:03/05/2024 11:00:00 AM Scheduled Provider:HENRIQUE LANDRUM PA-C Location:[facility] Appointment Type:URO Office Visit Diagnostic Tests Pending * PSA Total 11/01/22 [facility] evaluation note* Diagnosis Prostate cancer (HCC)- Primary Malignant neoplasm of prostate documented in this encounter [facility] note* Diagnosis Prostate cancer (HCC) Malignant neoplasm of prostate documented in this encounter [facility] note* Diagnosis Prostate cancer (HCC)- Primary Malignant neoplasm of prostate documented in this encounter [facility] noteNo [employer] Other Evaluation note* Diagnosis Malignant neoplasm of prostate (HCC)- Primary Malignant neoplasm of prostate documented in this encounter [facility] note* Diagnosis Onset Date Resolution Status ASHD (arteriosclerotic heart disease) acute Chronic venous insufficiency acute Diabetes mellitus with hyperglycemia acute Elevated cholesterol acute Primary hypertension acute Prostate cancer acute [facility] Work Phone: Evaluation note* Diagnosis Age-related nuclear cataract of both eyes- Primary documented in this encounter [facility] note* Diagnosis Age-related nuclear cataract of both eyes documented in this encounter [facility] HealthcareEvaluation note* Diagnosis Onset Date Resolution Status Admit Date ASHD (arteriosclerotic heart disease) acute July 30 10:57am Chronic venous insufficiency acute July 30, 2024 10:57am Diabetes mellitus with hyperglycemia acute July 30 10:57am Elevated cholesterol acute 2023 10:57am Medicare annual wellness vis it, subsequent acute July 30 10:57am Primary hypertension acute 2023 10:57am Prostate cancer acute July 30, 2024 10:57am [facility] Work Phone: Evaluation note* Diagnosis Age-related nuclear cataract of both eyes- Primary documented in this encounter [facility] Narrative - Reported* Type Description [...] LAD/OM 2003 Hospitalization History SEE SURGICAL HX [facility] Other Hospital course Narrative No data available for this section [facility] Discharge instructions No data available for this section [facility] [employer] progress note No data available for this section [facility] [employer] Summary Purpose Family History No Family History Records FoundNo Family History Records Found No data available for this section No Family History Records FoundNo Family History Records FoundNo Family History Records Found Advance Directives Advance Directive Response Recorded Date/ Time Advance Directives No October 09, 2023 4:12pm Advance Directive Response Recorded Date/ Time Advance Directives No October 09, 2023 3:12pm Chief Complaint and Reason for Visit Chief Complaint 4 month follow up Reason for Visit ASHD (arteriosclerot ic heart disease) Chronic venous insufficiency Diabetes mellitus with hyperglycemia Elevated cholesterol Primary hypertension Prostate cancer Chief Complaint Admit Date CC Adult Risk Stratification July 1:41pm wellness July 30, 2024 10:57am Reason for Visit Admit Date ASHD (arteriosclerotic heart disease) No vember 2023 10:57am Chronic venous insufficiency July 302023 10:57am Diabetes mellitus with hyperglycemia Nov ember 2023 10:57am Elevated cholesterol July 30, 2024 10:57am Medicare annual wellness visit, subseque nt July 30, 2024 10:57am Primary hypertension July 30, 2024 10:57am Prostate cancer July 30, 2024 10:57am Additional Source Comments (unrecognized sect ion and content) No Status Records FoundNo Status Records FoundNo Status Records FoundNo Status Records FoundNo Status Records Found INFORMATION SOURCE (unrecogn ized section and content) DATE CREATED AUTHOR 04/06/2018 [facility] DATE CREATED AUTHOR AUTHOR'S ORGANIZ ATION 01/09/2023 [facility] DATE CREATED AUTHOR AUTHOR'S ORGANIZ ATION 03/07/2024 Santos Hugo [facility] DATE CREATED AUTHOR AUTHOR'S ORGANIZ ATION 05/16/2024 [facility] DATE CREATED AUTHOR AUTHOR'S ORGANIZ ATION 08/12/2024 [facility] Source Comments (unrecognize d section and content) In the event this informatio n is protected by the Federal Confidentiality of Alcohol and Drug Abuse Patient Records regulations: The Federal rules restrict any use of the information to criminally investigate or prosecute any alcohol or drug abuse patient.[facility] HospitalIn the event this information is protected by the Federal Confidentiality of Alcohol and Drug Abuse Patient Records regulations: The Federal rules restrict any use of the information to criminally investigate or prosecute any alcohol or drug abuse patient.[facility] HospitalIn the event this information is protected by the Federal Confidentiality of Alcohol and Drug Abuse Patient Records regulations: The Federal rules restrict any use of the information to criminally investigate or prosecute any alcohol or drug abuse patient.[facility] HospitalIn the event this information is protected by the Federal Confidentiality of Alcohol and Drug Abuse Patient Records regulations: The Federal rules restrict any use of the information to criminally investigate or prosecute any alcohol or drug abuse patient.[facility] HospitalIn the event this information is protected by the Federal Confidentiality of Alcohol and Drug Abuse Patient Records regulations: The Federal rules restrict any use of the information to criminally investigate or prosecute any alcohol or drug abuse patient.[facility] HospitalIn the event this information is protected by the Federal Confidentiality of Alcohol and Drug Abuse Patient Records regulations: The Federal rules restrict any use of the information to criminally investigate or prosecute any alcohol or drug abuse patient.[facility] HospitalIn the event this information is protected by the Federal Confidentiality of Alcohol and Drug Abuse Patient Records regulations: The Federal rules restrict any use of the information to criminally investigate or prosecute any alcohol or drug abuse patient.[facility] Reason for Visit (unrecogniz ed section and content) Reason Comments Prostate Cancer Reason Comments Prostate Cancer Follow up Reason Onset Date Comments Med Refill 07/02/2024 Reason Onset Date Comments Med Refill 07/03/2024 Reason Comments Cataract Care Teams (unrecognized sec tion and content) Sole Molder Relationship Specialty Start Date End Date Nico Lino, DO [address] [place] [address] PCP - General Internal Medicine 02/10/21 Joseph Vasques Jr. [address] [place] [address] Urology 02/10/21 Sole Molder Relationship Specialty Start Date End Date Nico Lino, DO [address] [place] [address] PCP - General Internal Medicine 02/10/21 Joseph Vasques Jr. [address] [place] [phone] Urology 02/10/21 Sole Molder Relationship Specialty Start Date End Date Nico Lino, DO [address] [place] [address] PCP - General Internal Medicine 02/10/21 Joseph Vasques Jr. [address] [place] [address] Urology 02/10/21 Sole Molder Relationship Specialty Start Date End Date Nico Lino, DO [address] [place] [address] PCP - General Internal Medicine 02/10/21 Joseph Vasques Jr. [address] [place] [place] [address] Urology 02/10/21 Sole Molder Relationship Specialty Start Date End Date Nico Lino DO [address] [place] [address] PCP - General Internal Medicine 02/10/21 Joseph Vasques Jr. [address] [place] [address] Urology 02/10/21 Team Status: Active Member Role Status Dates Nico Lino DO Primary Care Provider Active Team Status: Active Member Role Status Dates Nico Lino DO Primary Care Provider Active Start: February 14, 2024 Ketan Bartlett MD Attending Provider Active Start: February 14, 2024 Team Status: Active Member Role Status Dates Nico Lino DO Primary Care Provide r, Attending Provider Active Start: March 26, 2024 Team Status: Inactive Member Role Status Dates Nico Lino DO Primary Care Provide r, Attending Provider Active Start: March 27, 2024 End: March 27, 2024 Sole Molder Relationship Specialty Start Date End Date Nico Lino DO [address] [place] [address] PCP - General Internal Medicine 02/10/21 Joseph Vasques Jr. [address] [place] [address] Urology 02/10/21 Sole Molder Relationship Specialty Start Date End Date Nico Lino MD [address] [place] [address] PCP - General Internal Medicine 05/14/24 Sole Molder Relationship Specialty Start Date End Date Nico Lino MD [address] [facility] [place] [address] PCP - General Internal Medicine 05/14/24 Team Status: Active Member Role Status Dates Nico Lino DO Primary Care Provide r, Attending Provider Active Start: July 24, 2024 Team Status: Inactive Member Role Status Dates Nico Lino DO Primary Care Provide r, Attending Provider Active Start: July 30, 2024 End: July 30, 2024 Sole Molder Relationship Specialty Start Date End Date Nico Lino DO [address] [place] [address] PCP - General Internal Medicine 02/10/21 Joseph Vasques Jr. [address] [facility] [place] [address] Urology 02/10/21 Sole Molder Relationship Specialty Start Date End Date Nico Lino MD [address] [facility] [place] [id number] PCP - General Internal Medicine 05/14/24 Goals (unrecognized section and content) Goals may [...] BE BASED ON THE PRIMARY CLINICAL RECORDS. [facility], [facility]. provides no warranty or guarantee of the accuracy or completeness of information in this document.
[2024-11-21 11:36] LABS: Basophils Absolute Auto 0.1 10^3/uL (0.0-0.1); Basophils Percent Auto 1.2 % (0.2-2.0); Eosinophils Absolute Auto 0.3 10^3/uL (0.0-0.7); Eosinophils Percent Auto 2.8 % (0.9-7.0); Hematocrit 39.8 % (42.0-54.0); Hemoglobin 13.1 g/dL (14.0-18.0); Immature Granulocytes Abs Auto 0.03 10^3/uL (0.00-0.03); Immature Granulocytes Pct Auto 0.2 % (0.0-0.5); Lymphocytes Absolute Auto 1.9 10^3/uL (1.2-3.8); Lymphocytes Percent Auto 15.3 % (20.5-60.0); Mean Corpuscular HGB Conc 32.9 g/dL (29.9-35.2); Mean Corpuscular Hemoglobin 29.4 pg (25.9-34.0); Mean Corpuscular Volume 89.2 fL (80.0-94.0); Mean Platelet Volume 10.5 fL (9.5-13.5); Monocytes Absolute Auto 0.8 10^3/uL (0.3-0.8); Monocytes Percent Auto 6.6 % (1.7-12.0); Neutrophils Percent Auto 73.9 % (43.0-75.0); Platelet Count 386 10^3/uL (150-450); Red Blood Count 4.46 10^6/uL (4.70-6.10); Red Cell Distribution Width 15.4 % (11.0-15.0); White Blood Count 12.2 10^3/uL (4.0-11.0)
[2024-11-21 11:52] LABS: BUN Creatinine Ratio 13.3; Carbon Dioxide 23.5 mmol/L (21.0-32.0); Chloride 104 mmol/L (98-107); Estimated GFR (African America 49 (>=60 mL/min/1.73m^2); Estimated GFR (Non-African Ame 40 (>=60 mL/min/1.73m^2); Glucose 139 mg/dL (74-106); Potassium 4.5 mmol/L (3.5-5.1); Sodium 140 mmol/L (136-145)
--- NOTE | 2024-11-21 12:00 | XR_ITS ---
[place] [address] Patient Name: SEGUN JOHNSON MRN: [id number] date: 1945 Sex: M Assigned Patient Location: [facility] Current Patient Location: [facility] Accession/Order Number: [id number] Exam Date: 11/21/2024 14:11 Report Date: 11/21/2024 14:14 At the request of: TG MERCEDES DO Procedure: XR hip RT 2V w/ pelvis Single AP view pelvis and 2 views right hip INDICATION: Pain right hip, right lower extremity radiculopathy COMPARISON: None FINDINGS: Mild degenerative changes right hip with joint space narrowing and marginal ossified formation. Mild degenerative changes left hip. Degenerative changes lower lumbar spine brachytherapy seeds within prostate. Pelvic phleboliths. XR/XR hip RT 2V w/ pelvis IMPRESSION: Mild degenerative degenerative changes right hip. No fracture dislocation Impression dictated by: Jeffrey Mills M.D.11/21/2024 2:14 PM Dictation Location: [place] [address] Electronically authenticated by: [id number] Y Date: 11/21/2024 14:14
--- NOTE | 2024-11-21 12:00 | XR_ITS ---
The [place] [address] Patient Name: SEGUN JOHNSON MRN: [id number] date: 1945 Sex: M Assigned Patient Location: [facility] Current Patient Location: [facility] Accession/Order Number: [id number] Exam Date: 11/21/2024 14:08 Report Date: 11/21/2024 14:11 At the request of: TG MERCEDES DO Procedure: XR lumbar spine 2-3V 2 views of the lumbar spine INDICATION: Acute/chronic right hip and right lower back pain x1 month worse for past 2 weeks COMPARISON: None FINDINGS: Mild levocurvature of the lumbar spine with mild levocurvature at the thoracolumbar junction. Lumbar vertebral heights are maintained. Znkp-ih-uqadkenh disc space narrowing L4-S1. Moderate facet arthropathy L5-S1 and mild to moderate facet arthropathy L4 5-6 5 mm retrolisthesis L2 on L3. No calcification overlying the renal shadows. Bilateral pelvic phleboliths. XR/XR lumbar spine 2-3V IMPRESSION: Mild/moderate degenerative changes lower lumbar spine. No evidence acute fracture or malalignment. Impression dictated by: Jeffrey Mills M.D.11/21/2024 2:11 PM Dictation Location: [place] [address] Electronically authenticated by: [id number] Y Date: 11/21/2024 14:11
[2024-11-21 12:03] LABS: Estimated Average Glucose 154 mg/dL
== END 2024-11-21 10:58 | disposition home or self-care (01) ==
PROVIDERS: PCP Internal Medicine; Visit Provider Internal Medicine
DX: M54.50 Low back pain, unspecified (principal); M79.604 Pain in right leg; M25.551 Pain in right hip; N18.9 Chronic kidney disease, unspecified; E11.65 Type 2 diabetes mellitus with hyperglycemia; M51.369 Other intervertebral disc degeneration, lumbar region without mention of lumbar back pain or lower extremity pain; I12.9 Hypertensive chronic kidney disease with stage 1 through stage 4 chronic kidney disease, or unspecified chronic kidney disease
CPT/HCPCS: 36415; 72100; 73502; 80048; 83036; 85025

== ENCOUNTER 2024-11-29 14:46 | Outpatient (RCR) | payer MEDICARE, SELFPAY | END 2025-01-24 06:45 | disposition home or self-care (01) | LOC: PT 14:46 | PROVIDERS: Visit Provider Internal Medicine | DX: M54.59 Other low back pain (principal); M25.559 Pain in unspecified hip | CPT/HCPCS: 97110; 97112; 97162; 97530 ==

== ENCOUNTER 2024-12-06 10:45 | Outpatient (OUT) | payer MEDICARE, SELFPAY ==
--- NOTE | 2024-12-06 10:49 | US_ITS ---
The [address] [address] Patient Name: SEGUN JOHNSON MRN: [id number] date: 1945 Sex: M Assigned Patient Location: [place] Current Patient Location: [place] Accession/Order Number: [id number] Exam Date: 12/06/2024 12:43 Report Date: 12/06/2024 12:44 At the request of: TG MERCEDES DO Procedure: US renal BI BILATERAL RENAL AND BLADDER ULTRASOUND CLINICAL HISTORY: Chronic Kidney Disease COMPARISON: None FINDINGS: Estimation of renal size is approximately 10.2 cm on the right and 11.1 cm on the left. No contour deforming mass or hydronephrosis. Small cyst left kidney. 3 mm stone left kidney. The urinary bladder is partially distended with a volume of 103 ml. No shadowing stone or focal lesion. No significant postvoid residual. US/US renal BI IMPRESSION: LEFT NEPHROLITHIASIS. NO HYDRONEPHROSIS TO SUGGEST OBSTRUCTION. Impression dictated by: Zoltan Gomes Jr., DColeOCole12/06/2024 12:44 PM Dictation Location: [place] [address] Electronically authenticated by: [id number] Y Date: 12/06/2024 12:44
--- OUTSIDE RECORDS SUMMARY | 2024-12-06 11:08 | XMS_ITS | CCD ---
Author Organization [facility] CliniSyil Care Team Providers Care Fuel Buyer Name Role Phone PHYSICIAN, DEFAULT Unavailable Unavailable PHYSICIAN, DEFAULT Unavailable Unavailable HOLLAND, NICO Unavailable Unavailable Nico Lino DO Primary Care Provider Joseph Vasques Jr. Unavailable Nico Lino DO Primary Care Provider Joseph Vasques Jr. Unavailable NICO LINO Primary Care Physician Holland, Nico Unavailable HOLLAND, DR MAS Admitting Unavailable HOLLAND, DR MAS Attending Unavailable HOLLAND, DR MAS Primary Care Unavailable HOLLAND, DR MAS Consulting Unavailable HOLLAND, DR MAS Admitting Unavailable HOLLAND, DR MAS Attending Unavailable HOLLAND, DR MAS Primary Care Unavailable HOLLAND, DR MAS Consulting Unavailable ADOLFO, DR VICKI Delcid Admitting Unavailable ENGRENATO, DR VICKI Delcid Attending Unavailable HOLLAND, DR MAS Primary Care Unavailable ADOLFO, DR VICKI Delcid Consulting Unavailable HOLLAND, DR MAS Primary Care Unavailable ANA ., CYNTHIA Admitting Unavailable ANA ., CYNTHIA Attending Unavailable CHICHJULIO ., HALLE CASTELLANOS Consulting Unavailevangelina e ADOLFO, DR VICKI Delcid Admitting Unavailable ENGELEChristos, DR VICKI Delcid Attending Unavailable HOLLAND, DR MAS Primary Care Unavailable HOLLAND, DR MAS Admitting Unavailable HOLLAND, DR MAS Attending Unavailable HOLLAND, DR MAS Primary Care Unavailable HOLLAND, DR MAS Consulting Unavailable Nico Lino DO Primary Care Provider HENRIQUE LANDRUM Attending Unavailable CONCHITA KENNY Attending Unavailable HUMA BARBOSA Referring Unavailable Nico Lino MD Primary Care Provider NICO LINO Primary Care Unavailable ALEXANDRARRonda Referring Unavailable ENGELERRonda Attending Unavailable NICO LINO Primary Care Unavailable ENGELERRonda Referring Unavailable ENGELER G TONI Attending Unavailable NICO LINO Primary Care Unavailable ENGELER, G TONI Attending Unavailable Allergies Allergy Classification Reported Allergen(s) Allergy Type Date of Onset Reaction(s) Facility (1 source) Shellfish Containing Products Drug allergy (disorder) 9 [facility] Repository (3 sources) Seafood; Translations: [Seafood] Drug allergy Itching [facility] (1 source) patient allergy list reviewed by nurse or physicia Propensity to adverse reactions 5 Comment:Done [employer] Other (1 source) Shrimp product; Translations: [Shrimp] Propensity to adverse reactions (disorder) [facility] Repository (1 source) No Known Medication Allergies; Translations: [No Known Medication Allergies] Propensity to adverse reactions (disorder) [facility] Repository Medications Current Medications Medication Drug Class(es) Dates Sig (Normalized) Sig (Original) aspirin 81 mg delayed release oral tablet (16 sources) Platelet Aggregation Inhibitor, Nonsteroidal Anti-inflammatory Drug Start: 01-22-2021 take 1 tablet by mouth once daily Aspirin 81 mg tablet,delayed release (DR/EC) Active 81 MG PO Daily November 23, 2023 1:00am Comment on above: Take by mouth. atenolol 50 mg oral tablet (19 sources) beta-Adrenergic Tatyana Start: 01-01-2024 take 1 tablet by mouth once daily Atenolol 50 mg tablet Active 0 .ROUTE .COMPLEX 90 January 01, 2024 9:26am TAKE 1 TABLET BY MOUTH EVERY DAY Start: 01-14-2021 End: 01-01-2024 take 1 tablet by mouth once daily Atenolol 50 mg tablet Discontinued 50 MG PO Daily November 23, 2023 1:00am January 01, 2024 9:26am Comment on above: Take 50 mg by mouth. calcium carbonate 1500 mg / cholecalciferol 200 unt oral tablet (2 sources) Vitamin D Start: 06-16-20 take 1 tablet by mouth once daily calcium (as carbonate)-vitamin D 600 mg-200 units oral tablet 1 tab(s), Oral, Daily, Prophylaxis Start Date: 06/16/21 Status: Ordered celecoxib 200 mg oral capsule (2 sources) Nonsteroidal Anti-inflammatory Drug Start: 11-22-19 take 1 capsule by mouth once daily Celecoxib 200 mg capsule Active 200 MG PO Daily November 21, 2024 11:28am Start: 11-21-2024 End: 11-21-2024 take 1 capsule by mouth once daily Celecoxib 200 mg capsule Discontinued 200 MG PO Daily November 21, 2024 1:00am November 21, 2024 11:28am cyanocobalamin, vitamin B-12 , (VITAMIN B12 ORAL) (2 sources) cyanocobalamin, vitamin B-12, (VITAMIN B12 ORAL) Take by mouth. Active cyanocobalamin, vitamin B-12, (VITAMIN B12 ORAL) Take by mouth. 0 Active folic acid 1 mg oral tablet (12 sources) Start: 08-19-2024 take 1 tablet by mouth once daily Folic Acid 1 mg tablet Active 0 .ROUTE .COMPLEX August 19, 2024 8:31am TAKE 1 TABLET BY MOUTH EVERY DAY Start: 11-23-2023 End: 08-19-2024 take 1 tablet by mouth once daily Folic Acid 1 mg tablet Discontinued 1 MG PO Daily November 23, 2023 1:00am August 19, 2024 8:31am glimepiride 4 mg oral tablet (20 sources) Sulfonylurea Start: 07-20-2024 take 1 tablet by mouth before breakfast Glimepiride 4 mg tablet Active 0 .ROUTE .COMPLEX July 20, 2024 7:49am TAKE 1 TABLET BY MOUTH IN THE MORNING 30 MINUTES BEFORE BREAKFAST Start: 11-23-2023 End: 07-20-2024 take 2 mg by mouth once daily in the morning Glimepiride 4 mg tablet Discontinued 2 MG PO Every morning November 23, 2023 1:00am July 20, 2024 7:49am Start: 11-23-2023 take 2 mg by mouth [...] MOUTH EVERY DAY Start: 01-14-2021 End: 01-01-2024 take 1 tablet by mouth once daily Lisinopril 10 mg tablet Discontinued 10 MG PO Daily November 23, 2023 1:00am January 01, 2024 9:26am Comment on above: Take 10 mg by [...] mouth. metFORMIN hydrochloride 1000 mg oral tablet (17 sources) Biguanide Start: 04-17-2024 take 1 tablet by mouth twice daily at dinner Metformin 1,000 mg tablet Active 0 .ROUTE .COMPLEX 180 April 17, 2024 12:50pm TAKE 1 TABLET BY MOUTH 2 TIMES A DAY with breakfast and evening meal Start: 11-23-2023 End: 04-17-2024 take 1 tablet by mouth twice daily at mealtime Metformin 1,000 mg tablet Discontinued 1000 MG PO Twice daily with meals November 23, 2023 1:00am April 17, 2024 12:50pm Start: 01-14-2021 End: 08-18-2022 take 1 tablet [...] ophthalmic solution (3 sources) Quinolone Antimicrobial Start: End: take 1 [...] Active propylene glycol 6 mg/ml ophthalmic solution (2 sources) Start: 07-30-2024 Propylene Glyc ol (Systane Complete) 0.6 % drops Active 1 DROPS EYE-BOTH Four times daily as needed July 30, 2024 1:00am sertraline 100 mg oral tablet (20 sources) Serotonin Reuptake Inhibitor Start: 04-09-2024 End: 10-28-2024 take 1 tablet by mouth at bedtime Sertraline 100 mg tablet Active 0 .ROUTE .COMPLEX 90 October 28, 2024 10:06am TAKE 1 TABLET BY MOUTH AT BEDTIME Start: 01-14-2021 End: 04-09-2024 take 1 tablet by mouth once daily at bedtime Sertraline 100 mg tablet Discontinued 100 MG PO Daily at bedtime November 23, 2023 1:00am April 09, 2024 8:49am Comment on above: Take 100 mg by mouth . tamsulosin hydrochloride 0.4 mg oral capsule (6 sources) alpha-Adrenergic Tatyana Start: 2 End: 3 take 1 capsule by mouth once daily tamsulosin 0.4 mg Cap 0.4 mg = 1 cap(s), Oral, Daily, # 30 cap(s), Refills(s) 11, Pharmacy: [id number], 173, cm, 11/02/21 11:02:00 [...] Drug Class(es) Dates Sig (Normalized) Sig (Original) atorvastatin 80 mg oral tablet (20 sources) HMG-CoA Reductase Inhibitor Start: 01-14-2021 atorvastatin (LIPITOR) 40 mg tablet Take 40 mg by mouth. 01/14/2021 Active Start: 01-14-2021 End: 03-25-2024 take 1 tablet by mouth once daily at bedtime Atorvastatin 80 mg tablet Discontinued 80 MG PO Daily at bedtime November 23, 2023 1:00am March 25, 2024 7:02am Comment on above: Take 80 mg by [...] to other specified organisms] Episodic Anxiety disorders (9 sources) Generalized anxiety disorder; Translations: [Generalized anxiety disorder] Chronic Appendicitis and other appendiceal conditions (2 sources) Appendicitis 06-16-2021 Episodic Cancer of prostate (20 sources) Malignant tumor of prostate; Translations: [Malignant neoplasm of prostate] Onset: 02-17-2021 Chronic Comment on above: TRUS/Bx 2020Gleason 4+3, group 3EBT, Brachytherapy and ADT Cataract (6 sources) Bilateral age-related nuclear cataracts; Translations: [Age-related nuclear cataract, bilateral] Onset: 05-14-2024 07-02-2024 Chronic Chronic kidney disease (1 source) Chronic kidney disease; Translations: [Chronic kidney disease, unspecified] 07-31-2024 Chronic Coronary atherosclerosis and other heart disease (15 sources) Coronary occlusion; Translations: [Coronary arteriosclerosis] Onset: 06-24-2015 06-16-2021 Chronic Deficiency and other anemia (5 sources) 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; Translations: [Folate deficiency anemia, unspecified] Episodic Deficiency and other anemia (5 sources) Anemia; Translations: [Anemia, unspecified] Episodic Deficiency and other anemia (8 sources) Pernicious anemia; Translations: [Vitamin B12 deficiency anemia due to intrinsic factor deficiency] 11-23-2023 Episodic Deficiency and other anemia (2 sources) Vitamin B12 deficiency anemia due to intrinsic factor deficiency Episodic Deficiency and other anemia (1 source) Folate deficiency anemia, unspecified Episodic Deficiency and other anemia (3 sources) Nutritional anemia; Translations: [Folate deficiency anemia, unspecified] 11-23-2023 Episodic Diabetes mellitus with complications (20 sources) Hyperglycemia due to type 2 diabetes mellitus; Translations: [Type 2 diabetes mellitus with hyperglycemia] Onset: 11-29-2022 Chronic Diabetes mellitus without complication (2 sources) Diabetes mellitus 06-16-2021 Chronic Disorders of lipid metabolism (18 sources) Pure hypercholesterolemia ; Translations: [Familial hypercholesterolemia ] Onset: 06-24-2015 Chronic E Codes: Cut/pierceb (1 source) Contact with other sharp object(s), not elsewhere classified, initial encounter; Translations: [[facility] OTH SHRP OB NOT ELSW CLASS INI] Onset: 01-09-2023 Episodic Essential hypertension (20 sources) Hypertensive disorder; Translations: [Essential hypertension] Onset: [...] sources) H/O: high risk medication; Translations: [Other detention (current) drug therapy] Episodic Other aftercare (1 source) Other detention (current) drug therapy; Translations: [OTH 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 CURRENT DRUG THERAPY] Onset: 01-09-2023 Episodic Other aftercare (1 source) [facility]DC (current) use of aspirin; Translations: [RETAIL 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 CURRENT USE OF ASPIRIN] Onset: 01-09-2023 Episodic Other aftercare (1 source) terminal 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 manager (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) use of oral hypoglycemic drugs; Translations: [RETAIL 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 USE ORAL HYPOGLYCEMIC DX] Onset: 01-09-2023 Episodic Other aftercare (1 source) Long-term current use of drug therapy; Translations: [Other detention (current) drug therapy] Episodic Other diseases of kidney and ureters (1 source) Urinary tract obstruction; Translations: [Other obstructive and reflux uropathy] Onset: 11-01-2022 Episodic Other diseases of veins and lymphatics (8 sources) Peripheral venous insufficiency; Translations: [Venous insufficiency (chronic) (peripheral)] 11-23-2023 Episodic Other diseases of veins and lymphatics (4 sources) Venous insufficiency (chronic) (peripheral); Translations: [Venous (peripheral) insufficiency, unspecified] Episodic Other injuries and conditions due to external causes (1 source) History of fall; Translations: [History of falling] Episodic Other non-traumatic joint disorders (1 source) Hip pain; Translations: [Pain in right hip] 11-21-2024 Episodic Other non-traumatic joint disorders (1 source) Pain in right hip; Translations: [Pain in joint, pelvic region and thigh] 11-21-2024 Episodic Other nutritional; endocrine; and metabolic disorders [...] Spondylosis; intervertebral disc disorders; other back problems (4 sources) Low back pain; Translations: [Low back pain radiating to right lower extremity] 06-16-2021 Episodic Substance-related disorders (1 source) Tobacco [...] 08-09-2024 CNOV Office Visit (RADTSA) SEGUN JOHNSON ([id number]) 1945 M Date Time Provider Department 08/09/24 [...] DIAGNOSIS: Prostate adenocarcinoma, initial PSA 11.5, biopsy [facility] score 4 + 3 = 7 (grade [...] by: Ronda Bartlett MD cc: Nico Lino ([facility]) [address] [place] [address] Dr. Storey Portions of the above note extracted and edited from previous visit as well as active information included in the EMR. Referring Provider: Ronda BARTLETT [[id number]] Allergies As of Date: 08/09/2024 (No Known Allergies) Date Reviewed: 08/09/2024 Reviewed by: Jillian Waddell LPN - Fully Assessed Reason for Visit: Prostate Cancer [590] Primary Visit Diagnosis:Cancer of prostate w/med recur risk (T2b-c or [facility] 7 or PSA 10-20) ([facility]) [C61] Order(s):PSA (OUTSIDE) [[id number]] Order #: [id number] PROSTATE-SPECIFIC ANTIGEN DIAGNOSTIC [SQPSA] Order #: [id number] FUTURE TESTOSTERONE, TOTAL BY IMMUNOASSAY (ADULT MALES, OR INDIVIDUALS ON TESTOSTERONE THERAPY) [SQTESTO] Order #: [id number] FUTURE Prescriptions as of 08/09/2024 - folic [...] - l (more content not included)... Normal [facility] PSA (OUTSIDE)on 07-30-2024 [facility] US Eye+Orbit - bilateralon 0 05-14-2024 Diagnosis: Cataract both eyes (OU) Testing Indication: Performed for preop measurements in the determination of an intraocular lens (IOL) for both eyes (OU) Test Reliability: Good quality both eyes (OU) Interpretation: Good measurements for intraocular lens (IOL) calculation purposes. Calculation made for both eyes (OU). [facility] [employer] [facility] Sv[employer] e Radiology Study observation (narrative) [facility] Glucose mean value [Mass/vol ume] in Blood Estimated from glycated hemoglobinon 03-26-2024 Average glucose Estimated from glycated hemoglobin (Bld) [Mass/Vol] 163 mg/dL [facility] - Hematology and Cell countson 03-26-2024 HbA1c (Bld) [Mass fraction] 7.3 % High 4.5-6.2 [facility] Comment on above: ADA RECOMMENDED LIMI T 4.0 - 6.0ADA THERAPEUTIC TARGET < 7.0ACTION SUGGESTED> 7.0 Consultation Noteon 02-16-20 Consultation Note [id number]# 1.00TIFF Jia [facility] CNOVon 02-15-2024 CNOV Office Visit (RADTSA) SEGUN JOHNSON ([id number]) 1945 M Date Time Provider Department 02/15/24 [...] by: Ronda Bartlett MD cc: Nico Lino ([facility]) [address] [place] [address] Dr. Storey Portions of the above note extracted and edited from previous visit as well as active information included in the EMR. Referring Provider: Ronda BARTLETT [[id number]] Allergies As of Date: 02/15/2024 (No Known Allergies) Date Reviewed: 02/15/2024 Reviewed by: Venus Vasques MA - Fully Assessed Reason for Visit: Prostate Cancer [590] Cmt: Follow up Primary Visit Diagnosis:Cancer of prostate w/med recur risk (T2b-c or [facility] 7 or PSA 10-20) (HCC) [C61] Order(s):PSA (OUTSIDE) [[id number]] Order #: [id number] PROSTATE-SPECIFIC ANTIGEN DIAGNOSTIC [SQPSA] Order #: [id number] FUTURE Prescriptions as of 02/15/2024 - cyanocobalamin, [...] 08/17/2022 Visit Notes: >> Venus Vasques MA [facility] February 15, 2024 9:47 AM Status: Signed AUA=9 Disposition: Return in about 6 months (around 08/17/2024). Follow-up and Disposition History for Encounter Date Provider Department Center 02/15/2024 [id number] BARTLETT ERIK DEVRIES Encounter Status:Closed by Ronda BARTLETT on 02/15/24 Normal [facility] No Panel Informationon 02-13 Prostate Specific Antigen Total 0.61 ng/mL <=4.00 [facility] PSA (OUTSIDE)on 02-14-2024 [facility] CNOVon 08-17-2023 CNOV Office Visit (RADTSA) SEGUN JOHNSON ([id number]) 1945 M Date Time Provider Department 08/17/23 [...] by: Ronda Bartlett MD cc: Nico Lino ([facility]) [address] [place] [address] Dr. Storey Portions of the above note extracted and edited from previous visit as well as active information included in the EMR. Allergies As of Date: 08/17/2023 (No Known Allergies) Date Reviewed: 08/17/2023 Reviewed by: Angélica Acharya RN - Fully Assessed Reason for Visit: Prostate Cancer [590] Primary Visit Diagnosis:Malignant neoplasm of prostate (HCC) [C61] Order(s):PSA (OUTSIDE) [[id number]] Order #: [id number] PSA/PROSTSPECAG DIAG [SQPSA] Order #: [id number] FUTURE Prescriptions as of 08/17/2023 - loperamide [...] 08/17/2022 Visit Notes: >> Angélica Acharya RN [facility] Aug 17, 2023 10:07 AM Status: Signed AUA 7 Angélica Acharya RN Medications Discontinued During This Encounter Prescriptions - tamsulosin (FLOMAX) 0.4 mg (Discontinued) Take 0.4 mg by mouth once daily. - leuprolide acetate (LUPRON DEPOT INTRAMUSC.) (Discontinued) Inject intramuscularly. Disposition: Return in about 6 months (around 02/15/2024). Follow-up and Disposition History for Encounter Date Provider Department Center 08/17/2023 [id number] BARTLETT Encounter Status:Closed by Ronda BARTLETT on 08/17/23 [facility] GLYCOHEMOGLOBIN A1Con 2022 ADA RECOMMENDATION SEE BELOW Normal [facility] Comment on above: Result Comment: ADA RECOMMENDED LIMIT 4.0 - 6.0 ADA THERAPEUTIC TARGET < 7.0 ACTION SUGGESTED > 7.0 Performed By: #### A 1C #### [facility] [address] [place] [address] Dr. Radha Brown Glucose [Mass/Vol] 186 mg/dL Normal [facility] Comment on above: Performed By: #### A 1C #### [facility] [address] [place] [address] Dr. Radha Brown HbA1c (Bld) [Mass fraction] 8.1 % Critically high 4.5-6.2 [facility] Comment on above: Performed By: #### A 1C #### [facility] [address] [place] [address] Dr. Radha Brown CBC AUTO DIFFon 07-29-2022 BASO # 0.1 103/ul Normal 0.0-0.1 [facility] Comment on above: Performed By: #### C BC #### [facility] [address] [place] [address] Dr. Radha Brown Basophils/100 WBC (Bld) 0.9 % Normal 0.2-2.0 [facility] Comment on above: Performed By: #### C BC #### [facility] [address] [place] [address] Dr. Radha Brown EO # 0.5 103/ul Normal 0.0-0.7 [facility] Comment on above: Performed By: #### C BC #### [facility] [address] [place] [address] Dr. Radha Brown Eosinophils/100 WBC (Bld) 5.5 % Normal 0.9-7.0 [facility] Comment on above: Performed By: #### C BC #### [facility] [address] [place] [address] Dr. Radha Brown Erythrocyte distribution width (RBC) [Ratio] 15.0 % Normal 11.0-15.0 [facility] Comment on above: Performed By: #### C BC #### [facility] [address] [address] [address] Radha Brown Hematocrit (Bld) [Volume fraction] 35.6 % Critically low 42.0-54.0 [facility] Comment on above: Performed By: #### C BC #### [facility] [address] [place] [address] Dr. Radha Brown Hemoglobin (Bld) [Mass/Vol] 11.8 g/dL Critically low 14.0-18.0 [facility] Comment on above: Performed By: #### C BC #### [facility] [address] [address] [address] Radha Brown IG # 0.05 10e3/ul Critically high 0.00-0.03 [facility] Comment on above: Performed By: #### C BC #### [facility] [address] [place] [address] Dr. Radha Brown IG % 0.5 % Normal 0.0-0.5 [facility] Comment on above: Performed By: #### C BC #### [facility] [address] [place] [address] Dr. Radha Brown LYMPH # 1.8 103/ul Normal 1.2-3.8 [facility] Comment on above: Performed By: #### C BC #### [facility] [address] [place] [address] Dr. Radha Brown Lymphocytes/100 WBC (Bld) 19.3 % Critically low 20.5-60.0 [facility] Comment on above: Performed By: #### C BC #### [facility] [address] [place] [address] Dr. Radha Brown MANUAL DIFF REQ NO Normal [facility] Comment on above: Performed By: #### C BC #### [facility] [address] [place] [address] Dr. Radha Brown MCH (RBC) [Entitic mass] 29.2 pg Normal 25.9-34.0 [facility] Comment on above: Performed By: #### C BC #### [facility] [address] [place] [address] Dr. Radha Brown MCHC (RBC) [Mass/Vol] 33.1 g/dL Normal 29.9-35.2 [facility] Comment on above: Performed By: #### C BC #### [facility] [address] [place] [address] Dr. Radha Brown MCV (RBC) [Entitic vol] 88.1 fL Normal 80.0-94.0 [facility] Comment on above: Performed By: #### C BC #### [facility] [address] [place] [address] Dr. Radha Brown MONO # 0.6 103/ul Normal 0.3-0.8 [facility] Comment on above: Performed By: #### C BC #### [facility] [address] [place] [address] Dr. Radha Brown Monocytes/100 WBC (Bld) 6.4 % Normal 1.7-12.0 [facility] Comment on above: Performed By: #### C BC #### [facility] [address] [place] [address] Dr. Radha Brown NEUT # 6.4 103/ul Normal 1.4-6.5 [facility] Comment on above: Performed By: #### C BC #### [facility] [address] [place] [address] Dr. Radha Brown Neutrophils/100 WBC (Bld) 67.4 % Normal 43.0-75.0 [facility] Comment on above: Performed By: #### C BC #### [facility] [address] [place] [address] Dr. Radha Brown Platelet mean volume (Bld) [Entitic vol] 9.2 fL Critically low 9.5-13.5 [facility] Comment on above: Performed By: #### C BC #### [facility] [address] [place] [address] Dr. Radha Brown PLT 232 103/ul Normal 150-450 [facility] Comment on above: Performed By: #### C BC #### [facility] [address] [place] [address] Dr. Radha Brown RBC 4.04 106/ul Critically low 4.70-6.10 [facility] Comment on above: Performed By: #### C BC #### [facility] [address] [address] [address] Radha Brown WBC 9.5 103/ul Normal 4.0-11.0 [facility] Comment on above: Performed By: #### C BC #### [facility] [address] [address] [address] Radha Brown FERRITINon 07-29-2022 Ferritin [Mass/Vol] 164.0 ng/mL Normal 26.0-388.0 [facility] Comment on above: Performed By: #### P SAD, FOL, FERR, FETIBC #### [facility] [address] [address] [address] Radha Brown FOLATEon 07-29-2022 FOLATE 7.60 ng/mL Critically low 8.60-58.90 [facility] Comment on above: Performed By: #### P SAD, FOL, FERR, FETIBC #### [facility] [address] [address] [address] Radha Brown GLYCOHEMOGLOBIN A1Con 2021 ADA RECOMMENDATION SEE BELOW Normal [facility] Comment on above: Result Comment: ADA RECOMMENDED LIMIT 4.0 - 6.0 ADA THERAPEUTIC TARGET < 7.0 ACTION SUGGESTED > 7.0 Performed By: #### A 1C #### [facility] [address] [address] [address] Radha Brown Glucose [Mass/Vol] 134 mg/dL Normal [facility] Comment on above: Performed By: #### A 1C #### [facility] [address] [address] [address] Radha Brown HbA1c (Bld) [Mass fraction] 6.3 % Critically high 4.5-6.2 [facility] Comment on above: Performed By: #### A 1C #### [facility] [address] [place] [address] Dr. Radha Brown IRON AND TIBCon 07-29-2022 % SATURATION 22.1 % Normal [facility] Comment on above: Performed By: #### P SAD, FOL, FERR, FETIBC #### [facility] [address] [place] [address] Dr. Radha Brown Iron [Mass/Vol] 78.0 ug/dL Normal 65.0-175.0 [facility] Comment on above: Performed By: #### P SAD, FOL, FERR, FETIBC #### [facility] [address] [address] [address] Radha Brown TIBC DIRECT 353.0 ug/dL Normal 250.0-450.0 [facility] Comment on above: Performed By: #### P SAD, FOL, FERR, FETIBC #### [facility] [address] [address] [address] Radha Brown LIPID PROFILEon 07-29-2022 CHOL-HDL RATIO NORM SEE BELOW Normal [facility] Comment on above: Result Comment: 3.3 - 4.4 LOW RISK 4.4 - 7.1 AVERAGE RISK 7.1 - 11.0 MODERATE RISK >11.0 HIGH RISK Performed By: #### P SAD, FOL, FERR, FETIBC #### [facility] [address] [address] [address] Radha Brown Cholesterol [Mass/Vol] 137 mg/dL Normal <=200 [facility] Comment on above: Performed By: #### P SAD, FOL, FERR, FETIBC #### [facility] [address] [address] [address] Radha Brown Cholesterol in HDL [Mass/Vol] 37 mg/dL Critically low 40-60 [facility] Comment on above: Performed By: #### P SAD, FOL, FERR, FETIBC #### [facility] [address] [address] [address] Radha Brown Cholesterol in LDL [Mass/Vol] 67.0 mg/dL Normal [facility] Comment on above: Performed By: #### P SAD, FOL, FERR, FETIBC #### [facility] [address] [address] [address] Radha Brown Cholesterol.total/Ch olesterol in HDL [Mass ratio] 3.7 {ratio} Normal [facility] Comment on above: Performed By: #### P SAD, FOL, FERR, FETIBC #### [facility] [address] [place] [address] Dr. Radha Brown HDL NORMAL > or = 60 mg/dl - LOW CARDIOVASCULAR RISK <40 mg/dl - HIGH CARDIOVASCULAR RISK Normal [facility] Comment on above: Performed By: #### P SAD, FOL, FERR, FETIBC #### [facility] [address] [place] [address] Dr. Radha Brown LDL CALC NORMAL SEE BELOW Normal [facility] Comment on above: Result Comment: <100 mg/dl OPTIMAL 100 - 129 mg/dl NEAR OR ABOVE OPTIMAL 130 - 159 mg/dl BORDERLINE HIGH 160 - 189 mg/dl HIGH >190 mg/dl VERY HIGH Performed By: #### P SAD, FOL, FERR, FETIBC #### [facility] [address] [place] [address] Dr. Radha Brown Triglyceride [Mass/Vol] 165 mg/dL Critically high <=150 [facility] Comment on above: Performed By: #### P SAD, FOL, FERR, FETIBC #### [facility] [address] [place] [address] Dr. Radha Brown VLDL CALC 33.0 mg/dL Normal [facility] Comment on above: Performed By: #### P SAD, FOL, FERR, FETIBC #### [facility] [address] [place] [address] Dr. Radha Brown MICROALBUMIN, RAND URon 07-19 mALB <1.3 Normal <=30.0 [facility] Comment on above: Performed By: #### M ALBR #### [facility] [address] [place] [address] Dr. Radha Brown PROF CHEM 8 (BAS METB)on Anion gap [Moles/Vol] 9.1 mmol/L Normal [facility] Comment on above: Performed By: #### P SAD, FOL, FERR, FETIBC #### [facility] [address] [address] [address] Radha Brown Calcium [Mass/Vol] 8.6 mg/dL Normal 8.5-10.1 [facility] Comment on above: Performed By: #### P SAD, FOL, FERR, FETIBC #### [facility] [address] [address] [address] Radha Brown Chloride [Moles/Vol] 106 mmol/L Normal 98-107 [facility] Comment on above: Performed By: #### P SAD, FOL, FERR, FETIBC #### [facility] [address] [address] [address] Radha Brown CO2 [Moles/Vol] 27.1 mmol/L Normal 21.0-32.0 [facility] Comment on above: Performed By: #### P SAD, FOL, FERR, FETIBC #### [facility] [address] [place] [address] Dr. Radha Brown Creatinine [Mass/Vol] 1.19 mg/dL Normal 0.70-1.30 [facility] Comment on above: Performed By: #### P SAD, FOL, FERR, FETIBC #### [facility] [address] [address] [address] Radha Brown EGFR-AF GAMBIAN >60 Normal >=60 [facility] Comment on above: Performed By: #### P SAD, FOL, FERR, FETIBC #### [facility] [address] [address] [address] Radha Brown EGFR-NON AF GAMBIAN 59 mL/min/1.73m2 Critically low >=60 [facility] Comment on above: Performed By: #### P SAD, FOL, FERR, FETIBC #### [facility] [address] [address] [address] Radha Brown Glucose [Mass/Vol] 137 mg/dL Critically high 74-106 [facility] Comment on above: Performed By: #### P SAD, FOL, FERR, FETIBC #### [facility] [address] [address] [address] Radha Brown Potassium [Moles/Vol] 4.2 mmol/L Normal 3.5-5.1 [facility] Comment on above: Performed By: #### P ORLIN FOL FERR, FETIBC #### [facility] [address] [place] [address] Dr. Radha Brown Sodium [Moles/Vol] 138 mmol/L Normal 136-145 [facility] Comment on above: Performed By: #### P ORLIN FOL, FERR, FETIBC #### [facility] [address] [place] [address] Dr. Radha Brown Urea nitrogen [Mass/Vol] 22.0 mg/dL Critically high 7.0-18.0 [facility] Comment on above: Performed By: #### P ORLIN FOL FERR, FETIBC #### [facility] [address] [place] [address] Dr. Radha Brown Urea nitrogen/Creatinine [Mass ratio] 18.5 mg/mg Normal [facility] Comment on above: Performed By: #### P ORLIN FOL FERR, FETIBC #### [facility] [address] [place] [address] Dr. Radha Brown GLYCOHEMOGLOBIN A1Con 2021 ADA RECOMMENDATION SEE BELOW Normal [facility] Comment on above: Result Comment: ADA RECOMMENDED LIMIT 4.0 - 6.0 ADA THERAPEUTIC TARGET < 7.0 ACTION SUGGESTED > 7.0 Performed By: #### A 1C #### [facility] [address] [place] [address] Dr. Radha Brown Glucose [Mass/Vol] 154 mg/dL Normal [facility] Comment on above: Performed By: #### A 1C #### [facility] [address] [place] [address] Dr. Radha Brown HbA1c (Bld) [Mass fraction] 7.0 % Critically high 4.5-6.2 [facility] Comment on above: Performed By: #### A 1C #### [facility] [address] [place] [address] Dr. Radha Brown Vital Signs Date Time Vital Sign Value Performing Clinician Facility 11-21-2024 09:57-0500 Body height 175.26 cm [facility] 11-21-2024 09:57-0500 Body mass index (BMI) [Ratio] 29.9 kg/m2 [facility] 11-21-2024 09:57-0500 Body weight 92.13 kg [facility] 11-21-2024 09:57-0500 Diastolic blood pressure 70 mm[Hg] [facility] 11-21-2024 09:57-0500 Heart rate 65 /min [facility] 11-21-2024 09:57-0500 Respiratory rate 14 /min [facility] 11-21-2024 09:57-0500 SaO2% (BldA) [Mass fraction] 95 % [facility] 11-21-2024 09:57-0500 Systolic blood pressure 124 mm[Hg] [facility] 08-09-2024 09:14-0500 Body mass index (BMI) [Ratio] 30.81 kg/m2 ANATOLY Bartlett MD Work Phone: [facility] 08-09-2024 09:14-0500 Body temperature 97.39 [degF] ANATOLY Bartlett MD Work Phone: [facility] 08-09-2024 09:14-0500 Body weight 96 kg ANATOLY Bartlett MD Work Phone: [facility] 08-09-2024 09:14-0500 Diastolic blood pressure 62 mm[Hg] ANATOLY Bartlett MD Work Phone: [facility] 08-09-2024 09:14-0500 Heart rate 70 /min ANATOLY Bartlett MD Work Phone: [facility] 08-09-2024 09:14-0500 Respiratory rate 16 /min ANATOLY Bartlett MD Work Phone: [facility] 08-09-2024 09:14-0500 SaO2% (BldA) [Mass fraction] 97 % ANATOLY Bratlett MD Work Phone: [facility] 08-09-2024 09:14-0500 Systolic blood pressure 105 mm[Hg] ANATOLY Bartlett MD Work Phone: [facility] 07-30-2024 11:20-0500 Body height 175.26 cm [facility] 07-30-2024 11:20-0500 Body mass index (BMI) [Ratio] 31.3 kg/m2 [facility] 07-30-2024 11:20-0500 Body weight 96.27 kg [facility] 07-30-2024 11:20-0500 Diastolic blood pressure 70 mm[Hg] [facility] 07-30-2024 11:20-0500 Heart rate 62 /min [facility] 07-30-2024 11:20-0500 Respiratory rate 12 /min [facility] 07-30-2024 11:20-0500 Systolic blood pressure 111 mm[Hg] [facility] 03-27-2024 11:06-0400 Body height 175.26 cm [facility] 03-27-2024 11:06-0400 Body mass index (BMI) [Ratio] 32.3 kg/m2 [facility] 03-27-2024 11:06-0400 Body weight 99.33 kg [facility] 03-27-2024 11:06-0400 Diastolic blood pressure 64 mm[Hg] [facility] 03-27-2024 11:06-0400 Heart rate 72 /min [facility] 03-27-2024 11:06-0400 Respiratory rate 20 /min [facility] 03-27-2024 11:06-0400 Systolic blood pressure 98 mm[Hg] [facility] 02-15-2024 09:44-0400 Body mass index (BMI) [Ratio] 31.83 kg/m2 ANATOLY Bartlett MD Work Phone: [facility] 02-15-2024 09:44-0400 Body temperature 97.3 [degF] ANATOLY Bartlett MD Work Phone: [facility] 02-15-2024 09:44-0400 Body weight 99.2 kg ANATOLY Bartlett MD Work Phone: [facility] 02-15-2024 09:44-0400 Diastolic blood pressure 69 mm[Hg] ANATOLY Bartlett MD Work Phone: [facility] 02-15-2024 09:44-0400 Heart rate 66 /min ANATOLY Bartlett MD Work Phone: [facility] 02-15-2024 09:44-0400 Respiratory rate 18 /min ANATOLY Bartlett MD Work Phone: [facility] 02-15-2024 09:44-0400 Systolic blood pressure 109 mm[Hg] ANATOLY Bartlett MD Work Phone: [facility] 08-17-2023 10:03-0500 Body temperature 96.91 [degF] ANATOLY Bartlett MD Work Phone: [facility] 08-17-2023 10:03-0500 Body weight 104.78 kg ANATOLY Bartlett MD Work Phone: [facility] 08-17-2023 10:03-0500 Diastolic blood pressure 75 mm[Hg] ANATOLY Bartlett MD Work Phone: [facility] 08-17-2023 10:03-0500 Heart rate 62 /min ANATOLY Bartlett MD Work Phone: [facility] 08-17-2023 10:03-0500 Respiratory rate 16 /min ANATOLY Bartlett MD Work Phone: [facility] 08-17-2023 10:03-0500 SaO2% (BldA) [Mass fraction] 95 % ANATOLY Bartlett MD Work Phone: [facility] 08-17-2023 10:03-0500 Systolic blood pressure 156 mm[Hg] ANATOLY Bartlett MD Work Phone: [facility] 07-26-2023 11:00-0500 Body height 175.26 cm Nico Ball Other [employer] Other 07-26-2023 11:00-0500 Body mass index (BMI) [Ratio] 33.37 kg/m2 Nico Ball Other [employer] Other 07-26-2023 11:00-0500 Body weight 102.51 kg Nico Ball Other [employer] Other 07-26-2023 11:00-0500 Diastolic blood pressure 83 mm[Hg] Nico Ball Other [employer] Other 07-26-2023 11:00-0500 Respiratory rate 12 /min Nico Ball Other [employer] Other 07-26-2023 11:00-0500 Systolic blood pressure 133 mm[Hg] Nico Ball Other [employer] Other 11-29-2022 14:30-0400 Body height 175.26 cm Nico Ball Other [employer] Other 11-29-2022 14:30-0400 Body mass index (BMI) [Ratio] 34.58 kg/m2 Nico Ball Other [employer] Other 11-29-2022 14:30-0400 Body weight 106.23 kg Nico Ball Other [employer] Other 11-29-2022 14:30-0400 Diastolic blood pressure 71 mm[Hg] Nico Ball Other [employer] Other 11-29-2022 14:30-0400 Respiratory rate 12 /min Nico Ball Other [employer] Other 11-29-2022 14:30-0400 Systolic blood pressure 118 mm[Hg] Nico Ball Other [employer] Other 11-01-2022 11:22-0500 Blood Pressure Location HENRIQUE LANDRUM [facility] 11-01-2022 11:22-0500 Diastolic blood pressure 80 mm[Hg] HENRIQUE LANDRUM [facility] 11-01-2022 11:22-0500 Heart rate 68 /min HENRIQUE LANDRUM [facility] 11-01-2022 11:22-0500 Respiratory rate 16 /min HENRIQUE LANDRUM [facility] 11-01-2022 11:22-0500 Systolic blood pressure 137 mm[Hg] HENRIQUE LANDRUM [facility] 08-18-2022 10:22-0500 Body temperature 96.21 [degF] ANATOLY Bartlett MD Work Phone: [facility] 08-18-2022 10:22-0500 Body weight 105.23 kg ANATOLY Bartlett MD Work Phone: [facility] 08-18-2022 10:22-0500 Diastolic blood pressure 55 mm[Hg] ANATOLY Bartlett MD Work Phone: [facility] 08-18-2022 10:22-0500 Heart rate 78 /min ANATOLY Bartlett MD Work Phone: [facility] 08-18-2022 10:22-0500 Respiratory rate 18 /min ANATOLY Bartlett MD Work Phone: [facility] 08-18-2022 10:22-0500 SaO2% (BldA) [Mass fraction] 98 % ANATOLY Bartlett MD Work Phone: [facility] 08-18-2022 10:22-0500 Systolic blood pressure 125 mm[Hg] ANATOLY Bartlett MD Work Phone: [facility] 02-17-2022 09:51-0400 Body temperature 96.1 [degF] ANATOLY Bartlett MD Work Phone: [facility] 02-17-2022 09:51-0400 Body weight 100.7 kg ANATOYL Bartlett MD Work Phone: [facility] 02-17-2022 09:51-0400 Diastolic blood pressure 75 mm[Hg] ANATOLY Bartlett MD Work Phone: [facility] 02-17-2022 09:51-0400 Heart rate 66 /min ANATOLY Bartlett MD Work Phone: [facility] 02-17-2022 09:51-0400 Respiratory rate 16 /min ANATOLY Bartlett MD Work Phone: [facility] 02-17-2022 09:51-0400 SaO2% (BldA) [Mass fraction] 97 % ANATOLY Bartlett MD Work Phone: [facility] 02-17-2022 09:51-0400 Systolic blood pressure 120 mm[Hg] ANATOLY Bartlett MD Work Phone: [facility] Encounters Encounter Date Encounter Type Care Provider Facility Start: 11-21-2024 End: 11-21-2024 ambulatory [facility] Work Phone: Start: 11-21-2024 End: 11-21-2024 Patient encounter procedure [facility] Work Phone: Start: 08-09-2024 End: 08-09-2024 ambulatory NICO LINO Facility:[facility] Start: 08-09-2024 End: 08-09-2024 Patient encounter procedure Ronda Bartlett MD Work Phone: Radiation Oncology Comment on above: Cancer of prostate w /med recur risk (T2b-c or [facility] 7 or PSA 10-20) (HCC) (Primary Dx) Start: 07-30-2024 End: 07-30-2024 ambulatory [facility] Work Phone: Start: 07-30-2024 End: 07-30-2024 Patient encounter procedure [facility] Work Phone: Start: 07-27-2024 Patient encounter procedure [facility] Start: 07-24-2024 Non-patient / Non-visit [facility] Work Phone: Start: 07-03-2024 End: 07-03-2024 Refill Conchita Kenny DO Work Phone: [facility] Comment on above: Age-related nuclear cataract of both eyes Start: 07-02-2024 End: 07-02-2024 Refill Conchita Wadeer DO Work Phone: [facility] Comment on above: Age-related nuclear cataract of both eyes (Primary Dx) Start: 05-14-2024 End: 05-14-2024 Bamboo flowsheet Conchita Kenny DO Work Phone: [facility] Start: 05-14-2024 End: 05-14-2024 Bamboo flowsheet Conchita Dardenhler DO Work Phone: [facility] Start: 05-14-2024 End: 05-14-2024 ambulatory CONCHITA KENNY Not Available Start: 03-27-2024 End: 03-27-2024 ambulatory [facility] Work Phone: Start: 03-27-2024 End: 03-27-2024 Patient encounter procedure [facility] Work Phone: Start: 03-26-2024 Non-patient / Non-visit [facility] Work Phone: Start: 03-05-2024 End: 03-05-2024 ambulatory HENRIQUE LANDRUM Facility:[facility] Start: 03-05-2024 End: 03-05-2024 Patient encounter procedure HENRIQUE LANDRUM [facility] Start: 02-15-2024 End: 02-15-2024 Patient encounter procedure Ronda Bartlett MD Work Phone: Radiation Oncology Comment on above: Cancer of prostate w /med recur risk (T2b-c or Asaf 7 or PSA 10-20) (HCC) (Primary Dx) Start: 02-15-2024 End: 02-15-2024 ambulatory NICO LINO Facility:[facility] Start: 02-14-2024 Non-patient / Non-visit [facility] [employer] Work Phone: Start: 08-17-2023 End: 08-17-2023 Patient encounter procedure Ronda Bartlett MD Work Phone: Radiation Oncology Comment on above: Malignant neoplasm o f prostate (HCC) (Primary Dx) Start: 08-17-2023 End: 08-17-2023 ambulatory NICO LINO Facility:[facility] Start: 07-26-2023 End: 07-26-2023 ambulatory Nico Lino Other [employer] Other Start: 07-26-2023 Patient encounter procedure Nico Lino [facility] Start: 07-17-2023 End: 07-17-2023 ambulatory Nico Lino Other [employer] Other Start: 07-17-2023 Telephone encounter Nico Lino [facility] Start: 04-04-2023 End: 04-04-2023 ambulatory Nico Lino Other [employer] Other Start: 04-04-2023 Telephone encounter Nico Lino [facility] Start: 01-05-2023 End: 01-05-[address] NICO LINO Facility: Start: 11-29-2022 End: 11-30-[address] NICO LINO [employer] Other Start: 11-29-2022 Office outpatient vi sit 25 minutes Nico Lino [facility] Start: 11-01-2022 End: 02-14-2023 Patient encounter procedure HENRIQUE LANDRUM [facility] Start: 08-18-2022 End: 08-18-2022 ambulatory Irlanda Castro APRN.[employer]ING [employer] Work Phone: Hematology/Oncology Comment on above: Prostate cancer (HCC ) Start: 08-18-2022 End: 08-18-2022 Patient encounter procedure Irlanda Castro APRN.[employer]ING [employer]UBBER Work Phone: [facility] Comment on above: Prostate cancer (HCC ) (Primary Dx) Start: 07-29-2022 End: 07-30-[address] NICO LINO Facility:[facility] Start: 07-25-2022 Adult health examination Nico Lino Other [employer] Other Start: 02-17-2022 End: 02-17-2022 Patient encounter procedure Ronda Bartlett MD Work Phone: Radiation Oncology Comment on above: Prostate cancer (HCC ) (Primary Dx) Start: 02-16-2022 End: 02-17-[address] NICO LINO Facility:[facility] Start: 01-16-[address] VICKI BARTLETT [facility] ility:[facility] Start: 08-05-2021 End: 08-05-2021 Subsequent hospital visit by physician [facility] Work Phone: Radiology [facility] Start: 07-19-2021 End: 07-19-2021 Pre-procedure evaluation check Nico Lino Other [employer] Other Start: 10-24-2014 End: 10-25-2014 Patient encounter DEFAULT PHYSICIAN Facility:[facility] Procedures Date Procedure Procedure Detail Performing Clinician Start: 07-30-2024 PSA screening [facility] Provi michael Start: 05-14-2024 Oph bmtry prtl coher intrfrmtry io lens pwr brunilda Kenny DO Work Phone: Start: 05-14-2024 End: 05-14-2024 [facility] medical xm&eval compre new pt 1/> vst [...] #### P SAD, FOL, FERR, FETIBC #### [facility] [address] [place] [address] Dr. Radha Brown Start: 02-17-2022 Adult depression screening assessment ANATOLY Bartlett MD Work Phone: Start: 02-16-2022 End: 02-16-2022 PSA screening [facility] Provider Comment on above: Performed By: #### P SAD #### [facility] [address] [address] [address] Radha Brown Start: 07-07-2021 Brachytherapy implan t (physical object) HENRIQUE LANDRUM Start: 01-29-2021 Biopsy of prostate REVA LANDRUM Start: 09-18-2017 Colonoscopy HENRIQUE Farhana CARPENTER Start: 06-09-2016 General examination of patient [...] DTaP,Tdap,Td Vaccine (2 - Td or Tdap) [facility] Start: 12-10-2024 End: 12-10-2024 Patient encounter procedure 12/10/2024 2:45 PM EDT Office Visit Radiation Oncology [address] [place] [address] Ronda Bartlett MD [address] [place] [address] 4 month follow up Radiation Oncology Comment on above: 4 month follow up Start: 12-07-2024 End: 03-08-2025 Prostate specific Ag [Mass/volume] in Serum or Plasma PROSTATE-SPECIFIC ANTIGEN DIAGNOSTIC Lab Routine Cancer of prostate w/med recur risk (T2b-c or Asaf 7 or PSA 10-20) (HCC) Expected: 12/07/2024, Expires: 03/08/2025 [facility] Work Phone: Comment on above: Expected: 12/07/2024 , Expires: 03/08/2025 Start: 12-07-2024 End: 03-08-2025 Testosterone [Mass/volume] in Serum or Plasma TESTOSTERONE, TOTAL BY IMMUNOASSAY (ADULT MALES, OR INDIVIDUALS ON TESTOSTERONE THERAPY) Lab Routine Cancer of prostate w/med recur risk (T2b-c or [facility] 7 or PSA 10-20) (HCC) Expected: 12/07/2024, Expires: 03/08/2025 [facility] Comment on above: Expected: 12/07/2024 , Expires: 03/08/2025 Start: 08-17-2024 End: 11-16-2024 Prostate specific Ag [Mass/volume] in Serum or Plasma PROSTATE-SPECIFIC ANTIGEN DIAGNOSTIC Lab Routine Cancer of prostate w/med recur risk (T2b-c or [facility] 7 or PSA 10-20) (HCC) Expected: 08/17/2024, Expires: 11/16/2024 [facility] Work Phone: Comment on above: Expected: 08/17/2024 , Expires: 11/16/2024 Start: 08-08-2024 End: 08-08-2024 Patient encounter procedure 08/08/2024 9:15 AM EST Office Visit Radiation Oncology [address] [place] [address] Ronda Bartlett MD [address] [place] [address] 6 month rv Radiation Oncology Comment on above: 6 month rv Start: 07-31-2024 Diabetes Screening Diabetes Screenin g [facility] Start: 06-24-2024 End: 06-24-2024 Patient encounter procedure 06/24/2024 9:05 AM EDT Procedure Visit [facility] Conchita Kenny, DO [address] [place] [address] [facility] Start: 06-10-2024 End: 06-10-2024 Patient encounter procedure 06/10/2024 10:25 AM EDT Procedure Visit [facility] Conchita Kenny, DO [address] [place] [address] [facility] Start: 05-19-2024 Covid-19 Vaccine ( season) Covid-19 Vaccine ( season) [facility] Start: 05-19-2024 Influenza vaccination Influenza Vacc ine (#1) [facility] Start: 05-14-2024 End: 05-14-2024 Patient encounter procedure 05/14/2024 1:45 PM EDT Office Visit [facility] [address] [place] [id number] Conchita Kenny, DO [address] [place] [address] Arrived [facility] Comment on above: Arrived Start: 02-15-2024 End: 05-16-2024 Prostate specific Ag [Mass/volume] in Serum or Plasma PSA/PROSTSPECAG DIAG Lab Routine Malignant neoplasm of prostate (HCC) Expected: 02/15/2024 (Approximate), Expires: 05/16/2024 [facility] Work Phone: Comment on above: Expected: 02/15/2024 (Approximate), Expires: 05/16/2024 Start: 10-14-2023 Covid-19 Vaccine ( season) Covid-19 Vaccine ( season) [facility] Start: 09-18-2023 Advance Directive Discussion Advance Directive Discussion [facility] Start: 09-18-2023 Behavioral Health Screening Behavioral Health Screening [facility] Start: 08-18-2023 End: 10-18-2023 Prostate specific Ag [Mass/volume] in Serum or Plasma PSA/PROSTSPECAG DIAG Lab Routine Prostate cancer (HCC) Expected: 08/18/2023, Expires: 10/18/2023 [facility] Work Phone: Comment on above: Expected: 08/18/2023 , Expires: 10/18/2023 Start: 02-17-2023 Adult depression screening assessment DEPRESSION SCREENING [facility] Start: 09-18-2022 Advance Directive Discussion Advance Directive Discussion [facility] Start: 09-18-2022 Depression Assessment Depression Ass essment [facility] Start: 08-19-2022 End: 10-19-2022 Prostate specific Ag [Mass/volume] in Serum or Plasma PSA/PROSTSPECAG DIAG Lab Routine Prostate cancer (HCC) Expected: 08/19/2022 (Approximate), Expires: 10/19/2022 [facility] Work Phone: Comment on above: Expected: 08/19/2022 (Approximate), Expires: 10/19/2022 Start: 09-18-2021 ADVANCE DIRECTIVE DISCUSSION ADVANCE DIRECTIVE DISCUSSION [facility] Start: 09-18-2021 DEPRESSION ASSESSMENT DEPRESSION ASS ESSMENT [facility] Start: 05-03-2021 COVID-19 VACCINE (3 - Booster for Moderna series) COVID-19 VACCINE (3 - Booster for Moderna series) [facility] Start: 2020 RSV Vaccine (1 - 1-d ose 75+ series) RSV Vaccine (1 - 1-dose 75+ series) [facility] Start: 10-04-2019 Pneumococcal Vaccine : 65+ (2 - PCV) Pneumococcal Vaccine: 65+ (2 - PCV) [facility] Start: 10-04-2019 Pneumococcal Vaccine : 65+ (2 of 2 - PCV) Pneumococcal Vaccine: 65+ (2 of 2 - PCV) [facility] Start: 10-04-2019 Pneumococcal Vaccine : 65+ Years (2 of 2 - PCV) Pneumococcal Vaccine: 65+ Years (2 of 2 - PCV) [facility] Start: 10-04-2019 PNEUMOCOCCAL: 65+ (2 - PCV) PNEUMOCOCCAL: 65+ (2 - PCV) [facility] Start: 2005 RSV Vaccine (1 - 1-d ose 60+ series) RSV Vaccine (1 - 1-dose 60+ series) [facility] Start: 1995 SHINGRIX VACCINE (1 of 2) SHINGRIX VACCINE (1 of 2) [facility] Start: 1990 DIABETES SCREEN DIABETES SCREEN [facility] Start: 1964 SHINGRIX VACCINE (1 of 2) SHINGRIX VACCINE (1 of 2) [facility] Start: 1964 Urine microalbumin profile DTAP,TDAP,TD (1 - Tdap) [facility] Start: 1963 Anxiety Screening Anxiety Screening [facility] Start: 1963 Depression Screening Depression Scre ening [facility] Start: 1963 HEPATITIS C SCREENING HEPATITIS C [facility] Start: 1963 Hepatitis C screening Hepatitis C [facility] Comprehensive metabo lic 2000 panel - Serum or Plasma [facility] Microalbumin [Mass/volume] in Urine [facility] XR Hip - right [address] [facility] XR Lumbar spine 2 or 3 Views [facility] [place] [facility] Immunizations Immunization Date Immunization Notes Care Provider Fa vincenzo 07-30-2024 influenza, high dose seasonal, preservative-free [facility] 06-14-2023 COVID-19 Vaccine Pfi zer - Documentation Purposes Only Nico Lino Other [facility] 06-14-2023 Flu Shot - Documentation Purposes Only Nico Lino Other [employer] Other 06-14-2023 influenza virus vaccine, unspecified formulation Conchita Kenny DO Work Phone: [facility] 01-05-2023 tetanus toxoid, redu dnoi diphtheria toxoid, and acellular pertussis vaccine, adsorbed Nico Lino Other [employer] Other 07-25-2022 influenza (aIIV4) vaccine, age 65+ yr, quadrivalent, PF (FLUAD QUAD) ANATOLY Bartlett MD Work Phone: [facility] 07-25-2022 influenza virus vaccine, split virus (incl. purified surface antigen) Nico Lino Other [facility] [place] Other 07-25-2022 influenza virus vaccine, unspecified formulation HENRIQUE LANDRUM [facility] 07-23-2022 SARS-CoV-2 (COVID-19 ) [id number] HENRIQUE LANDRUM [facility] 05-05-2022 SARS-CoV-2 mRNA (pxekrcddddd-noce-xmhet se) vaccine HENRIQUE LANDRUM [facility] 06-10-2021 influenza nasal, unspecified formulation ANATOLY Bartlett MD Work Phone: [facility] 06-10-2021 influenza virus vaccine, split virus (incl. purified surface antigen) Nico Lino Other [facility] [place] Other 06-10-2021 influenza virus vaccine, unspecified formulation HENRIQUEFRANK LANDRUM [facility] 06-10-2021 Seasonal trivalent influenza vaccine, adjuvanted, preservative free ANATOLY Bartlett MD Work Phone: [facility] 12-01-2020 COVID-19 vaccine, fu ll dose (MODERNA) ANATOLY Bartlett MD Work Phone: [facility] 11-05-2020 COVID-19 vaccine, fu ll dose (MODERNA) ANATOLY Bartlett MD Work Phone: [facility] 07-09-2020 influenza virus vaccine, split virus (incl. purified surface antigen) Nico Lino Other [facility] [place] Other 07-09-2020 influenza virus vaccine, unspecified formulation [facility] 06-04-2019 influenza nasal, unspecified formulation ANATOLY Bartlett MD Work Phone: [facility] 06-04-2019 influenza virus vaccine, unspecified formulation HENRIQUE DIALLO [facility] 06-04-2019 Seasonal trivalent influenza vaccine, adjuvanted, preservative free ANATOLY Bartlett MD Work Phone: [facility] 10-04-2018 pneumococcal Conjuga te, unspecified formulation; Translations: [Need for prophylactic vaccination against Streptococcus pneumoniae (pneumococcus)] Nico Lino Other [facility] [employer] [place] Other 10-04-2018 pneumococcal polysaccharide vaccine, 23 valent ANATOLY Bartlett MD Work Phone: [facility] 06-24-2015 influenza virus vaccine, split virus (incl. purified surface antigen) Nico Lino Other [facility] [place] Other 06-24-2015 influenza virus vaccine, unspecified formulation [facility] 06-24-2015 pneumococcal conjuga te vaccine, 13 valent Nico Lino Other [facility] Payers Date Payer Category Payer Medicaid [employer] MEDICARE A DVANTAGE [id number] 2020 Unknown 2020 Unknown MMO MMO TRADITIO NAL [id number] 2020-Present [phone] [address] [place] [address] Indemnity [id number] 2011 Medicare MEDICARE MEDICAR E A AND B [id number] 2011-Present [phone] [address] [address] [place] [address] Medicare [id number] 2011 Medicare [id number] 1959 Medicare [id number] 1959 Medicare [id number] 1959 Self-pay [id number] 1959 Unknown [id number] 1945 Unknown [id number] 1945 Unknown [id number] 1945 Unknown [id number] 1945 Unknown [id number] 1945 Unknown [id number] 1945 Unknown [id number] 1945 Unknown [id number] 1945 Unknown [id number] Social History Date Type Detail Facility Start: 03-03-2021 End: 11-23-2023 Tobacco smoking status NHIS Ex-smoker [facility] Start: [birth year]03-1957 End: 03-03-1961 History of tobacco use Current smoker [facility] Start: 03-03-2021 End: 08-17-2023 Cigarettes smoked current (pack per day) - Reported 0.5 [facility] Start: 03-03-2021 End: 08-09-2024 Tobacco use and exposure Smokeless tobacco non-user [facility] Start: 02-17-2022 End: 08-09-2024 Alcohol intake Current drinker of alcohol (finding) [facility] Start: 03-03-2021 History SDOH Alcohol Comment Socially [facility] Start: 1945 Sex Assigned At Not on file [facility] Start: 07-06-2021 End: 08-18-2022 Exposure to SARS-CoV-2 (event) Not sure [facility] Start: [birth year]-03-1957 End: 03-03-1961 History of tobacco use Cigarette Smoker [facility] Start: 08-18-2022 End: 08-17-2023 Sex Assigned At Male Tom Arias [facility] Adult Depression Screening Assessment 0 [facility] Start: 1945 Sex Assigned At Male F [facility] Start: 07-30-2024 End: 11-21-2024 Sex Male (finding) [facility] Medical Equipment Procedure Code Equipment Code Equipment Origin al Text Equipment Identifier Dates PROSTATIC BRACHYTHERAPY Ronda Bartlett MD 07/07/21 Unknown Other FDA Start: 07-07-2021 PROSTATIC BRACHYTHERAPY Ronda Bartlett MD 07/07/21 Unknown Other FDA Start: 07-07-2021 Functional Status Date Assessment Result Facility 11-01-2022 Functional Status N/A [facility] Clinical Notes 02-17-2022 to 08-09-2024 Note Date & Type Note Facility 08-09-2024 Evaluation note Diagnosis Cancer of prostate w/med recur risk (T2b-c or Asaf 7 or PSA 10-20) (HCC)- Primary Malignant neoplasm of prostate documented in this encounter [facility]11-22-2024 NoteHNO ID: [id number] Author: Ronda BARTLETT MD Service: ? Author [...] Ronda Bartlett MD cc: Nico Lino (Sanjeev) [facility] [place] [address] Dr. Storey Portions of the above note extracted and edited from previous visit as well as active information included in the EMR.[facility]11-22-2024 History of Present illness Narrative* Ronda Bartlett MD - 08/09/2024 9:19 AM EST Radiation Oncology - Follow Up Note PATIENT NAME: Segun Johnson PATIENT DIAGNOSIS: Prostate adenocarcinoma, initial PSA 11.5, biopsy [facility] score 4 + 3 = 7 (grade [...] ASSESSMENT/PLAN: Prostate adenocarcinoma, initial PSA 11.5, biopsy [facility] score 4 + 3 = 7 (grade [...] by: Ronda Bartlett MD cc: Nico Lino ([facility]) [address] [place] [address] Dr. Storey Portions of the above note extracted and edited from previous visit as well as active information included in the EMR. [facility] Nurse Note* Jillian Waddell LPN - 08/09/2024 9:15 AM EST AUA= 8 [facility]11-22-2024 Nurse Note* Jillian Waddell LPN - 08/09/2024 9:15 AM EST AUA= 8 documented in [facility]08[facility] History of Present illness Narrative* Conchita Kinsey Wadearmand, DO - 05/14/2024 1:45 PM EDT Images from [...] History: Diagnosis Date ASHD (arteriosclerotic heart disease) ([facility]) Cataract Diabetes mellitus with hyperglycemia ([facility]) Dry eyes Elevated cholesterol ([facility]) CATHY (generalized anxiety disorder) ([facility]) Hypertension ([facility]) Pernicious anemia Prostate cancer ([facility]) 2021 s/p Hormone tx, CTx, external beam [...] @ 2:06 PM Additional Tests Keratometry K1 [place] K2 [place] Right 45.5 151 46.5 61 Left 45.75 [...] Normal Normal Refraction Wearing Rx Sphere Cylinder [place] Add Right -4.75 +0.00 180 +2.50 Left -5.75 -0.50 055 +2.50 Manifest Refraction Sphere Cylinder [place] Right -4.25 -1.25 110 Left -6.00 -1.00 055 Final Rx Sphere Cylinder [place] Dist [place] Right -4.25 -0.75 110 20/40 [...] different lens options were explained including the ziy-ve-glotvp fees for any upgrades. Intraocular lens (IOL) [...] and OD - 06/24. documented in this encounterSt[facility] [id number] Evaluation note* Diagnosis Cancer of prostate w/med recur risk (T2b-c or [facility] 7 or PSA 10-20) (HCC)- Primary Malignant neoplasm of prostate documented in this encounter [facility]05-30-2024 History of Present illness Narrative* Ronda Bartlett MD - 02/15/2024 10:00 AM EDT Radiation Oncology - Follow Up Note PATIENT NAME: Segun Johnson PATIENT DIAGNOSIS: Prostate adenocarcinoma, initial PSA 11.5, biopsy [facility] score 4 + 3 = 7 (grade [...] by: Ronda Bartlett MD cc: Nico Lino ([facility]) [address] [place] [address] Dr. Storey Portions of the above note extracted and edited from previous visit as well as active information included in the EMR. documented in this encounterDel[facility]05-30-2024 NoteHNO ID: [id number] Author: Ronda BARTLETT MD Service: ? Author [...] Ronda Bartlett MD cc: Nico Lino (Sanjeev) [address] [place] [address] Dr. Storey Portions of the above note extracted and edited from previous visit as well as active information included in the EMR.[facility]05-30-2024 Nurse Note* Venus Vasques MA - 02/15/2024 9:47 AM EDT AUA=9 [facility]04-01-2024 Nurse Note* Venus Vasques MA - 02/15/2024 9:47 AM EDT AUA=9 documented in this encounterDel[facility]11-30-2023 History of Present illness Narrative* Ronda Bartlett MD - 08/17/2023 10:15 AM EST Radiation Oncology - Follow Up Note PATIENT NAME: Segun Johnson PATIENT DIAGNOSIS: Prostate adenocarcinoma, initial PSA 11.5, biopsy [facility] score 4 + 3 = 7 (grade [...] by: Ronda Bartlett MD cc: Nico Lino ([facility]) [address] [place] [address] Dr. Storey Portions of the above note extracted and edited from previous visit as well as active information included in the EMR. documented in this encounterDel[facility]11-30-2023 NoteHNO ID: [id number] Author: Ronda Bartlett MD Service: ? 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 No evidence of recurrence or posttreatment problems. Plan to see patient back in 6 months with repeat PSA. Signed by: Ronda Bartlett MD cc: Nico Lino ([facility]) [address] [place] [address] Dr. Storey Portions of the above note extracted and edited from previous visit as well as active information included in the EMR.[facility] 08-17-2023 Nurse Note* Angélica Acharya RN - 08/17/2023 10:07 AM EST AUA 7 Angélica Acharya RN documented in this encounterDel[facility]11-08-2023 Evaluation note* Encounter Date Diagnosis Assessment [...] CD-10 - D51.0) Continue supplement, recheck CBC [employer] Other 07-18-2023 Evaluation note* Encounter Date Diagnosis Assessment Notes Treatment Notes Treatment Clinical Notes Mar, Type 2 diabetes mellitus with hyperglycemia, without long-term current use of insulin (ICD-10 - E11.65) [employer] Other 03-14-2023 Evaluation note* Encounter Date Diagnosis [...] Pernicious anemia (ICD-10 - D51.0) B12 monthly [employer] Other 02-14-2023 Hospital Discharge instructions Patient Education [...] urethra. Follow these instructions at home: Take zoph-lir-durthpt and prescription medicines only as told by [...] 09/04/2006 Document Revised: 07/30/2019 Document Reviewed: 10/09/2017 [employer] Patient Education [employer]. Follow Up Care 05/03/2022 11:28:51 With:HENRIQUE LANDRUM PA-C, URL Address: [address] [facility] [place] [address] When:Within 18 Month(s) Comments:PSA [facility] 12-01-2022 History of Present illness Narrative* Irlanda [...] cancer. Irlanda Castro APRN.CNP documented in this encounterDel[facility]12-01-[facility]22 History of Present illness Narrative* Ronda [...] ASSESSMENT/PLAN: Prostate adenocarcinoma, initial PSA 11.5, biopsy [facility] score 4 + 3 = 7 (grade group 3), clinical stage T2b, N0, M0, stage IIC [T1-T2, N0, M0, PSA <20, GG 3] (AJCC 8th ed.), s/pPelvic radiation and prostate brachytherapy boost. No evidence of recurrence of posttreatment problems. Plan to see patient back in 6 months with repeat PSA. Signed by: Ronda Bartlett MD cc: Nico Lino ([facility]) [address] [place] [address] Dr. Storey Portions of the above note extracted and edited from previous visit as well as active information included in the EMR. documented in this encounterDel[facility]12-01-2022 Nurse Note* Angélica Acharya RN - 08/18/2022 10:30 AM EST AUA 14 Angélica Acharya RN documented in this encounterDel[facility]06-02-2022 History of Present illness Narrative* Ronda [...] ASSESSMENT/PLAN: Prostate adenocarcinoma, initial PSA 11.5, biopsy [facility] score 4 + 3 = 7 (grade group 3), clinical stage T2b, N0, M0, stage IIC [T1-T2, N0, M0, PSA <20, GG 3] (AJCC 8th ed.), s/pPelvic radiation and prostate brachytherapy boost. PSA remains low. No clinical evidence recurrence of posttreatment problems. Plan to see patient back in 4 months with repeat PSA. Signed by: Ronda Bartlett MD cc: Nico Lino ([facility]) [facility] [place] [address] Dr. Storey Portions of the above note extracted and edited from previous visit as well as active information included in the EMR. documented in this encounterDelaware [facility] Hospital06-02-2022 Nurse Note* Angélica Acharya RN - 02/17/2022 9:54 AM EDT AUA 10 Angélica Acharya RN [facility] Future Appointments Appointment Date:03/05/2024 11:00:00 AM Scheduled Provider:HENRIQUE LANDRUM PA-C Location:[facility] Appointment Type:URO Office Visit Diagnostic Tests Pending * PSA Total 11/01/22 [facility] evaluation note* Diagnosis Prostate cancer (HCC)- Primary Malignant neoplasm of prostate documented in this encounter [facility] note* Diagnosis Prostate cancer (HCC) Malignant neoplasm of prostate documented in this encounter [facility] note* Diagnosis Prostate cancer (HCC)- Primary Malignant neoplasm of prostate documented in this encounter [facility] noteNo [employer] Other Evaluation note* Diagnosis Malignant neoplasm of prostate (HCC)- Primary Malignant neoplasm of prostate documented in this encounter [facility] note* Diagnosis Onset Date Resolution Status ASHD (arteriosclerotic heart disease) acute Chronic venous insufficiency acute Diabetes mellitus with hyperglycemia acute Elevated cholesterol acute Primary hypertension acute Prostate cancer acute [facility] Work Phone: Evaluation note* Diagnosis Age-related nuclear cataract of both eyes- Primary documented in this encounter [facility]* Diagnosis Age-related nuclear cataract of both eyes [facility]* Diagnosis Onset Date Resolution Status Admit Date ASHD (arteriosclerotic heart disease) acute July 30 10:57am Chronic venous insufficiency acute July 30, 2024 10:57am Diabetes mellitus with hyperglycemia acute July 30 10:57am Elevated cholesterol acute 2023 10:57am Medicare annual wellness vis it, subsequent acute July 30 10:57am Primary hypertension acute 2023 10:57am Prostate cancer acute July 30, 2024 10:57am [facility] Work Phone: Evaluation note* Diagnosis Age-related nuclear cataract of both eyes- Primary [facility]* Diagnosis Onset Date Resolution Status Admit Date Low back pain radiating to r ight leg acute November 21, 2024 9:54am Right hip pain acute November 21, 2024 9:54am [facility] Work Phone: History general Narrative - Reported* Type Description Date [...] LAD/OM 2003 Hospitalization History SEE SURGICAL HX [facility] [employer] [place] Other Hospital course Narrative No data available for this section [facility] Hospital Discharge instructions No data available for this section [facility] progress note No data available for this section [facility] Summary Purpose Family History No Family History [...] 302023 10:57am Diabetes mellitus with hyperglycemia Nov 2023 10:57am Elevated cholesterol July 30, 2024 10:57am Medicare annual wellness visit, subseque nt July 30, 2024 10:57am Primary hypertension July 30, 2024 10:57am Prostate cancer July 30, 2024 10:57am Chief Complaint Admit Date 4 month/Back Pain November 21, 2024 9:54 am Reason for Visit Admit Date Low back pain radiating to right leg Nov 9:54am Right hip pain November 21, 2024 9:54 am Additional Source Comments (unrecognized sect ion and content) No Status Records FoundNo Status Records FoundNo Status Records FoundNo Status Records FoundNo Status Records Found INFORMATION SOURCE (unrecogn ized section and content) DATE CREATED AUTHOR 04/06/2018 [facility] DATE CREATED AUTHOR AUTHOR'S ORGANIZ ATION [facility] DATE CREATED AUTHOR AUTHOR'S ORGANIZ ATION 03/07/2024 [facility] DATE CREATED AUTHOR AUTHOR'S ORGANIZ ATION 05/16/2024 [facility] dical [facility] DATE CREATED AUTHOR AUTHOR'S ORGANIZ ATION 08/12/2024 [facility] Source Comments (unrecognize d section and content) In the event this informatio n is protected by the Federal Confidentiality of Alcohol and Drug Abuse Patient Records regulations: The Federal rules restrict any use of the information to criminally investigate or prosecute any alcohol or drug abuse patient.[facility] HospitalIn the event this information is protected by the Federal Confidentiality of Alcohol and Drug Abuse Patient Records regulations: The Federal rules restrict any use of the information to criminally investigate or prosecute any alcohol or drug abuse patient.[facility] HospitalIn the event this information is protected by the Federal Confidentiality of Alcohol and Drug Abuse Patient Records regulations: The Federal rules restrict any use of the information to criminally investigate or prosecute any alcohol or drug abuse patient.[facility] HospitalIn the event this information is protected by the Federal Confidentiality of Alcohol and Drug Abuse Patient Records regulations: The Federal rules restrict any use of the information to criminally investigate or prosecute any alcohol or drug abuse patient.[facility] HospitalIn the event this information is protected by the Federal Confidentiality of Alcohol and Drug Abuse Patient Records regulations: The Federal rules restrict any use of the information to criminally investigate or prosecute any alcohol or drug abuse patient.[facility] HospitalIn the event this information is protected by the Federal Confidentiality of Alcohol and Drug Abuse Patient Records regulations: The Federal rules restrict any use of the information to criminally investigate or prosecute any alcohol or drug abuse patient.[facility] HospitalIn the event this information is protected by the Federal Confidentiality of Alcohol and Drug Abuse Patient Records regulations: The Federal rules restrict any use of the information to criminally investigate or prosecute any alcohol or drug abuse patient.[facility] Reason for Visit (unrecogniz ed section and content) Reason Comments Prostate Cancer Reason Comments Prostate Cancer Follow up Reason Onset Date Comments Med Refill 07/02/2024 Reason Onset Date Comments Med Refill 07/03/2024 Reason Comments Cataract Care Teams (unrecognized sec tion and content) Team Status: Active Member Role Status Dates Nico Lino DO Primary Care Provider Active Team Status: Inactive Member Role Status Dates Nico Lino DO Primary Care Provide r, Attending Provider Active Start: November 21, 2024 End: November 21, 2024 [employer] Relationship Specialty Start Date End Date Nico Lino DO [address] [place] [address] PCP - General Internal Medicine 02/10/21 Joseph Vasques Jr. [address] [place] [address] Urology 02/10/21 [employer] Relationship Specialty Start Date End Date Nico Lino, DO [address] [place] [facility] [place] [address] PCP - General Internal Medicine 02/10/21 Joseph Vasques Jr. [address] [place] [address] Urology 02/10/21 [employer] Buyer Relationship Specialty Start Date End Date Nico Lino DO [address] [place] [facility] [place] [address] PCP - General Internal Medicine 02/10/21 Joseph Vasques Jr. [address] [place] [address] Urology 02/10/21 [employer] Buyer Relationship Specialty Start Date End Date Nico Lino DO [address] [place] [facility] [place] [address] PCP - General Internal Medicine 02/10/21 Joseph Vasques Jr. [address] [place] [id number] Urology 02/10/21 [employer] Relationship Specialty Start Date End Date Nico Lino DO [address] [place] [facility] [place] [address] PCP - General Internal Medicine 02/10/21 Joseph Vasques Jr. 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 Relationship Specialty Start Date End Date Nico Lino MD [address] [place] [address] PCP - General Internal Medicine 05/14/24 Fuel Buyer Relationship Specialty Start Date End Date Nico Lino MD [address] [place] [phone] PCP - General Internal Medicine 05/14/24 Team Status: Active Member Role Status Dates Nico Lino DO Primary Care Provide r, Attending Provider Active Start: July 24, 2024 Team Status: Inactive Member Role Status Dates Nico Lino DO Primary Care Provide r, Attending Provider Active Start: July 30, 2024 End: July 30, 2024 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 [address] [place] [address] Urology 02/10/21 Fuel Buyer Relationship Specialty Start Date End Date Nico Lino MD [address] [place] [address] PCP - General Internal Medicine 05/14/24 Team Status: Inactive Member Role Status Dates Nico Lino DO Primary Care Provide r, Attending Provider Active Start: November 21, 2024 End: November 21, 2024 Goals (unrecognized section and content) Goals may [...] BE BASED ON THE PRIMARY CLINICAL RECORDS. [facility] [facility]. provides no warranty or guarantee of the accuracy or completeness of information in this document.
== END 2024-12-06 10:46 | disposition home or self-care (01) ==
LOC: US 10:45
PROVIDERS: PCP Internal Medicine; Visit Provider Internal Medicine
DX: N18.9 Chronic kidney disease, unspecified (principal); N20.0 Calculus of kidney
CPT/HCPCS: 76775

== ENCOUNTER 2025-03-18 08:49 | Outpatient (OUT) | payer MEDICARE, SELFPAY ==
--- OUTSIDE RECORDS SUMMARY | 2025-03-18 08:54 | XMS_ITS | Clinical Summary ---
Author Organization [facility] Healthcare Address [address] [place] [address] Care Team Providers Care Coffee Brewer Name Role Phone Nico Lino DO Primary Care Provider [phone] Allergies No known active allergies Medications atorvastatin (Lipitor) 80 MG tablet Take 80 mg by mouth at bedtime 4 Active folic acid (Folvite) 1 MG tablet Take 1,000 mcg by mouth Daily Active glimepiride (Amaryl) 4 MG tablet TAKE 1 TABLET BY MOUTH IN THE MORNING 30 MINUTES BEFORE BREAKFAST Active lisinopril 10 MG tablet .COMPLEX 4 Active metFORMIN (Glucophage) 1000 MG tablet TAKE 1 TABLET BY MOUTH 2 TIMES A DAY with breakfast and evening meal Active sertraline (Zoloft) 100 MG tablet Take 100 mg by mouth at bedtime Active Active Problems Problem Noted Date Diagnosed Date Age-related nuclear cataract of both eyes 2023 Social History Tobacco Use Types Packs/Day Years Used Date Smoking Tobacco: Former Cigarettes Tobacco Cessation:Counseling Given: Not Answered Sex and Gender Information Value Date Recorded Sex Assigned at Not on file Legal Sex Male 8:24 PM EDT Gender Identity Not on file Sexual Orientation Not on file Last Filed Vital Signs Vital Sign Reading Time Taken Comments Blood Pressure - - Pulse - - Temperature - - Respiratory Rate - - Oxygen Saturation - - Inhaled Oxygen Concentration - - Weight 90.7 kg (200 lb) 04/19/2018 12:00 PM EDT Height 175.3 cm (5' 9 ) 04/19/2018 12:00 PM EDT Body Mass Index 29.53 04/19/2018 12:00 PM EDT Plan of Treatment Health Maintenance Due Date Last Done Comments Influenza Vaccine (Season Ended) 2025 06/14/2023, 07/25/2022, 06/10/2021, Additional history exists Pneumococcal Vaccine: 65+ Years Completed 9, 06/24/2015 Insurance [employer] MEDICARE ADVANTAGE Care Teams Coffee Brewer Relationship Specialty Start Date End Date Nico Lino DO PCP - General Internal Medicine 05/14/24
--- OUTSIDE RECORDS SUMMARY | 2025-03-18 08:54 | XMS_ITS | Clinical Summary ---
Author Organization [facility] Address [address] [place], [place] [id number] Care Team Providers Care Hog Man Name Role Phone Nico Lino DO Primary Care Provider [phone] Joseph Vasques Carlos A Jr. Unavailable [phone] Allergies No known active allergies Medications aspirin, enteric coated (ASPIRIN, ENTERIC COATED) 81 mg EC tablet Take by mouth. 1 Active atenolol (TENORMIN) 50 mg tablet Take 50 mg by mouth. 1 Active atorvastatin (LIPITOR) 40 mg tablet Take 40 mg by mouth. 1 Active glimepiride (AMARYL) 2 mg tablet 1 Active lisinopril (ZESTRIL, PRINIVIL) 10 mg tablet Take 10 mg by mouth. 1 Active sertraline (ZOLOFT) 100 mg tablet Take 100 mg by mouth. 1 Active loperamide HCl (IMODIUM ORAL) Take by mouth. Active cyanocobalamin, vitamin B-12, (VITAMIN B12 ORAL) Take by mouth. Activ e folic acid 1 mg tablet once daily. 4 Active metFORMIN (GLUCOPHAGE) 1,000 mg tablet TAKE 1 TABLET BY MOUTH 2 TIMES A DAY with breakfast and evening meal Active prednisoLONE acetate (PRED FORTE) 1 % ophthalmic suspension Administer 1 drop into both eyes four times a day (morning, noon, evening, bedtime) for 14 days. 4 Active Active Problems Problem Noted Date Diagnosed Date Prostate cancer 08/17/2022 Immunizations Immunization Administration Dates Next Due COVID-19 original vaccine, f ull dose, monovalent (MODERNA) 12/01/2020,11/05/2020 influenza (LAIV) vaccine, na basilio, unspecified formulation 06/10/2021,06/04/2019 influenza (aIIV3) vaccine, a ge 65+ yr, trivalent, PF (FLUAD) 06/10/2021,06/04/2019 influenza (aIIV4) vaccine, a ge 65+ yr, quadrivalent, PF (FLUAD QUAD) 06/14/2023,07/25/2022 pneumococcal polysaccharide (PPV23) vaccine, 23 valent (PNEUMOVAX 23) 10/04/2018 tetanus diphtheria pertussis (Tdap) vaccine, age 7+ yr (ADACEL, BOOSTRIX) 01/05/2023 Family History Medical History Relation Comments Skin Cancer Paternal Uncle 1 Cancer Paternal Uncle 2 Relation Status Comments Paternal Uncle 1 Alive Paternal Uncle 2 Alive Social History Tobacco Use Types Packs/Day Years Used Date Smoking Tobacco: Former Cigarettes 0.5 4 0 03/03/1957 - 03/03/1961 Smokeless Tobacco: Never Alcohol Use Standard Drinks/Week Comments Yes 0 (1 standard drink = 0.6 oz pur e alcohol) Socially PHQ-2 Answer Date Recorded PHQ-2 score 0 12/10/2024 Area Deprivation Index Answer Date Mann rded National Score (1-100), lower number is lower ri sk 80 08/17/2023 State Score (1-10), lower number is lower risk 7 08/17/2023 Data from: https://www.neighborhoodatlas.medicine.[facility].edu/. Last address used for calculation [address] [facility] 08/17/2023 Sex and Gender Information Value Date Recorded Sex Assigned at Not on file Legal Sex Male 10:08 AM EST Gender Identity Not on file Sexual Orientation Not on file Last Filed Vital Signs Vital Sign Reading Time Taken Comments Blood Pressure 112/69 12/10/2024 2:34 PM EDT Pulse 60 12/10/2024 2:34 PM EDT Temperature 35.8 C (96.5 F) 12/10/2024 2:34 PM EDT Respiratory Rate 18 12/10/2024 2:34 PM EDT Oxygen Saturation 97% 12/10/2024 2:34 PM EDT Inhaled Oxygen Concentration - - Weight 91.8 kg (202 lb 6.1 oz) 12/10/2024 2:34 P M EDT Height 176.5 cm (5' 9.5 ) 03/03/2021 2:05 PM EDT Body Mass Index 29.46 03/03/2021 2:05 PM EDT Plan of Treatment Upcoming Encounters Date Type Department Care Team (Late st Contact Info) Description 06/17/2025 11:30 AM EDT Office Visit Radiation Oncology [address] [place] [address] Ronda Bartlett MD [address] [place] [address] [place] [address] Labs to be done at [facility] prior Health Maintenance Due Date Last Done Comments Anxiety Screening 1963 Depression Screening 1963 Shingrix Vaccine (1 of 2) 1995 Pneumococcal Vaccine: 50+ (2 of 2 - PCV) 10/04/2019 10/04/2018 RSV Vaccine (1 - 1-dose 75+ series) 2020 Covid-19 Vaccine (6 - 2023-2 5 season) 2024 06/14/2023, 07/23/2022, 05/05/2022, Additional history exists Diabetes Screening 07/31/2024 07/31/2021 Advance Directive Discussion 09/18/2024 Medicare Advantage Annual We llness Visit 09/18/2024 DTaP,Tdap,Td Vaccine (2 - Td or Tdap) 01/05/2033 01/05/2023 Influenza Vaccine Completed 07/30/2024, , 07/25/2022, Additional history exists Insurance AETNA MEDICARE Care Teams Hog Man Relationship Specialty Start Date End Date Nico Lino DO [address] [place] [address] PCP - General Internal Medicine 02/10/21 Jsoeph Vasques Jr. [address] [place] [address] Urology 02/10/21
--- OUTSIDE RECORDS SUMMARY | 2025-03-18 08:54 | XMS_ITS ---
Author Organization [facility] Address [address] [place], [place] [address] Care Team Providers Care Customer Support Analyst Name Role Phone Nico Lino DO Primary Care Provider [phone] Joseph Vasques Jr. Unavailable [phone] Active Problems Problem Noted Date Diagnosed Date Prostate cancer 08/17/2022 Current Treatment and Therapy Plans No current plan information found. Past Treatment and Therapy Plans No past plan information found. Treatment Summaries Prostate cancer (HCC)* Treatment Summary and Survivorship Care Plan for Prostate Cancer Provided by: Irlanda Castro APRN.CNP General Information Patient Name: Julian López Patient : 1945 Patient phone: Email: No e-mail address on record Health Care Providers Primary Care Provider: Dr. Nico Lino Urologic Surgeon: Dr. Joseph Vasques Radiation Oncologist: Dr. Ketan Bartlett Other Providers: Irlanda Castro APRN.BILINGUAL EXECUTIVE ASSISTANT Treatment Summary Diagnosis Cancer Type: Adenocarcinoma of the Prostate Location: Left lateral base; Left lateral mid; Left lateral apex; Left base; Left mid; Right base; Right mid; Right lateral base; Right lateral mid Diagnosis Date (year): January 28, 2021 Histology Subtype: Prostate Cancer Stage:IIC; Clinical stage T2b, N0, M0 Asaf Score: 4+3=7 PSA at Diagnosis: 11.5 Clinical Trial: No Treatment Completed Surgery: Yes Surgery Date(s) (year): January 28, 2021 Surgical procedure/location/findings: Transrectal ultrasound random biopsy; Left lateral base; Leftlateral mid; Left lateral apex; Left base; Left mid; Right base; Right mid; Right lateral base; Right lateral mid; Adenocarcinoma of the Prostate External beam radiation: Yes Pelvis and Prostate: Yes: End Date (year): June 09, 2021 (May 05, 2021 through June 09, 2021) AREA TREATED: Pelvis and Prostate DELIVERED DOSE: Pelvis/ Prostate 45 Gy in 25 fractions, 3 Arcs, IMRT, 10 MV with daily CBCT Brachytherapy to prostate: Yes: End Date (year): July 07, 2021 Prostate Brachytherapy boost: 100 Gy, Pd-103, 39 seeds Systemic Therapy (chemotherapy, hormonal therapy, other): Yes Name of Agents Used: Lupron (or similar LHRH agonist): Ongoing Presistent symptoms or side effects at completion of treatment: Yes: Urinates every 2-3 hours; Occasional dribbling of urine Follow-up Care Plan Schedule of clinical visits Coordinating Provider When/How often Dr. Ketan Bartlett Every 6 months x2 years, then once yearly. Dr. Joseph Vasques Every 6 months Cancer surveillance or other recommended related tests Coordinating Provider Test How Often Dr. Ketan Bartlett PSA (Prostate Specific Antigen) Every 6 months x2 years, then once yearly. Please continue to see your primary care provider for all general health care recommended for a (man) (women) your age, including cancer screening tests. Any symptoms should be brought to the attention of your provider: 1. Anything that represents a brand new symptom; 2. Anything that represents a persistent symptom; 3. Anything you are worried about that might be related to the cancer coming back. Possible late- and long-term effects that someone with this type of cancer and treatment may experience: Decreased sex drive, Enlarging breast tissue, Erectile dysfunction, Fatigue, Hair Loss, Hot flashes, Incontinence, Increased body fat, Loss of muscle mass, Metabolic syndrome (increased blood pressure, blood sugar, cholesterol), Mood swings, Osteoporosis, Painful urination, Rectal pain, Shorten ing of the penis, Skin irritation or darkening, Sterility, Tirdness, Trouble voiding or passing uring (urinary retention), and Urinary frequency Cancer survivors may experience issues with the areas listed below. If you have any concerns in these or other areas, please speak with your doctors or nurses to find out how you can get help with them: anxiety or depression , emotional or mental health, fatigue, fertility, financial advice or assistance, insurance, memory or concentration loss, parenting, physicial functioning, school/work, and sexual functioning A number of lifestyle/behaviors can affect your ongoing health, including the risk for the cancer coming back or developing another cancer. Discuss these recommendations with your doctor or nurse: alcohol use, diet, management of medications, management of other illnesses, physical activity, sun screen use, tobacco use/cessation, and weight management (loss/gain) Resources you may be interested in: www.cancer.net Dental Hygiene Teacher [employer] Hand Art Therapy Support Groups- Contact Dental Hygiene Teacher for dates and times. Prepared by: Irlanda Castro APRN.BILINGUAL EXECUTIVE ASSISTANT Delivered on: August 18, 2022 - This Survivorship Care Plan is a cancer treatment summary and follow-up plan is provided to you to keep with your health care records and to share with your primary care provider. - This summary is a brief record of major aspects of your cancer treatment. You can share your copywith any of your doctors or nurses. However, this is not a detailed or comprehensive record of yourcare.
== END 2025-03-18 08:50 | disposition home or self-care (01) ==
LOC: LAB 08:51
PROVIDERS: PCP Internal Medicine; Visit Provider Internal Medicine
DX: E11.65 Type 2 diabetes mellitus with hyperglycemia (principal)
CPT/HCPCS: 36415; 83036

== ENCOUNTER 2025-03-24 12:10 | Outpatient (OUT) | payer MEDICARE, SELFPAY ==
--- OUTSIDE RECORDS SUMMARY | 2024-12-10 14:45 | XMS_ITS ---
Author Name Auto Generated Organization [facility] Care Team Providers Care Hog Counter Name Role Phone Ronda MATA Attending Unavailable NICO MERCEDES Primary Care Unavailable Ronda MATA Referring Unavailable Ronda MATA Attending Unavailable NICO MERCEDES Primary Care Unavailable CONCHITA AMOS Attending Unavailable HUMA ODOM Referring Unavailable PROBLEMS No Problem Records Found PROCEDURES No Procedure Records Found RESULTS PROGRESS Observed: 12/10/2024 2:45 PM Status: COMPLETED Source: [facility] HNO ID: [id number] Author: Ronda MATA MD Service: ? Author Type: Physician Type: Progress Notes Filed: 12/17/2024 10:57 Note Text: ) C. 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 (no units) Date Value 11/21/2024 1.35 07/30/2024 1.21 02/14/2024 0.61 04/04/2023 <0.13 ALLERGIES No Known Allergies folic acid [...] 12 months currently off PHYSICAL EXAM: BP 112/69 Pulse 60 Temp (!) 35.8 ?C (96.5 ?F) Resp 18 Wt 91.8 kg (202 lb 6.1 oz) SpO2 97% BMI 29.46 kg/m? KPS: 100 General appearance: Alert and [...] prostate brachytherapy boost. Clinically doing well. PSA with minimal ion exchange operator the last 3 to 4 months. Has risen over the last 12 months still likely related to testosterone recovery after prior ADT. Recommend continued close observation. If continues to climb consider PSMA PET. Signed by: Ronda Mata MD cc: Nico Mercedes ([facility]) [address] [place] [address] Portions of the above note extracted and edited from previous visit as well as active information included in the EMR. CNOV Observed: 12/10/2024 2:45 PM Status: COMPLETED Source: [facility] Office Visit (RADTSA) SEGUN ABDI ([id number]) 1945 M Date Time Provider Department 12/10/24 2:45 PM Ronda MATA During your visit today, we recorded the following information about you: Temperature Pulse Respiration Blood pressure 96.5 degrees 60/minute 18/minute 112/69 Weight 91.8 kg Katiana North RN 12/17/2024 10:57 AM Signed AUMARGOT Buchanan G Phillip, MD 12/17/2024 10:57 AM Signed ) C. 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 (no units) Date Value 11/21/2024 1.35 07/30/2024 1.21 02/14/2024 0.61 04/04/2023 <0.13 ALLERGIES No Known Allergies folic acid [...] 12 months currently off PHYSICAL EXAM: BP 112/69 Pulse 60 Temp (!) 35.8 ?C (96.5 ?F) Resp 18 Wt 91.8 kg (202 lb 6.1 oz) SpO2 97% BMI 29.46 kg/m? KPS: 100 General appearance: Alert and oriented. No acute distress. Rectal exam def Extremities: No deformities, edema, skin discoloration, clubbing or cyanosis. Lymph Nodes: No cervical lymphadenopathy, No supraclavicular lymphadenopathy, No axillary lymphadenopathy. Skin: Skin color, texture, turgor normal, no suspicious rashes or lesions. 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 Clinically doing well. PSA with minimal ion exchange operator the last 3 to 4 months. Has risen over the last 12 months still likely related to testosterone recovery after prior ADT. Recommend continued close observation. If continues to climb consider PSMA PET. Signed by: Ronda Mata MD cc: Nico Mercedes ([facility]) [address] [id number] Portions of the above note extracted and edited from previous visit as well as active information included in the EMR. Allergies As of Date: 12/10/2024 (No Known Allergies) Date Reviewed: 12/10/2024 Reviewed by: Katiana North RN - Fully Assessed Reason for Visit: Prostate Cancer [590] Primary Visit Diagnosis:Cancer of prostate w/med recur risk (T2b-c or Asaf 7 or PSA 10-20) ([facility]) [C61] Order(s):PSA (OUTSIDE) [[id number]] Order #: [id number] PROSTATE-SPECIFIC ANTIGEN DIAGNOSTIC [SQPSA] Order #: [id number] FUTURE TESTOSTERONE, TOTAL BY IMMUNOASSAY (ADULT MALES, OR INDIVIDUALS ON TESTOSTERONE THERAPY) [SQTESTO] Order #: [id number] FUTURE Prescriptions as of 12/17/2024 - folic acid 1 mg tablet once [...] by mouth. Problem List As Of Date 12/10/2024 Noted Resolved Prostate cancer (HCC) [C61] 08/17/2022 Level of Service: OFFICE/OUTPATIENT ESTABLISHED LOW MDM 20 MIN [91866] Additional E/M codes: VISIT CPLX INHERENT EANDM ASSOC WITH MED * Disposition: Return in about 6 months (around 06/12/2025). Follow-up and Disposition History for Encounter Date Provider Department Center 12/10/2024 [id number] MATA JOSE White Encounter Status:Closed by Ronda MATA on 12/17/24 PROGRESS Observed: 12/10/2024 2:38 PM Status: COMPLETED Source: [facility] HNO ID: [id number] Author: KATIANA NORTH RN Service: ? Author Type: Registered Nurse Type: Progress Notes Filed: 12/17/2024 10:57 Note Text: AUA Godfrey North RN PROGRESS Observed: 08/09/2024 9:19 AM Status: COMPLETED Source: [facility] HNO ID: [id number] Author: Ronda MATA MD Service: ? Author Type: Physician Type: Progress Notes Filed: 08/09/2024 09:31 Note Text: Radiation Oncology - Follow Up Note PATIENT NAME: Segun Abdi PATIENT DIAGNOSIS: Prostate adenocarcinoma, initial PSA 11.5, [...] ASSESSMENT/PLAN: Prostate adenocarcinoma, initial PSA 11.5, biopsy Ector score 4 + 3 = 7 (grade [...] climb consider PSMA PET. Signed by: Ronda Mata MD cc: Nico Mercedes ([facility]) [address] [place] [address] Storey Portions of the above note extracted and edited from previous visit as well as active information included in the EMR. CNOV Observed: 08/09/2024 9:15 AM Status: COMPLETED Source: [facility] Office Visit (RADTSA) SEGUN ABDI ([id number]) 1945 M Date Time Provider Department 08/09/24 9:15 AM Ronda MATA RADMONA During your visit today, we recorded the following information about you: Temperature Pulse Respiration Blood pressure 97.4 degrees 70/minute 16/minute 105/62 Weight 96 kg Jillian Waddell LPN 08/09/2024 9:23 AM Signed AUA= 8 Ronda Mata MD 08/09/2024 9:31 AM Signed Radiation Oncology - Follow Up Note PATIENT NAME: Segun Abdi PATIENT DIAGNOSIS: Prostate adenocarcinoma, initial PSA 11.5, [...] ASSESSMENT/PLAN: Prostate adenocarcinoma, initial PSA 11.5, biopsy Ector score 4 + 3 = 7 (grade [...] climb consider PSMA PET. Signed by: Ronda Mata MD cc: Nico Mercedes ([facility]) [id number] Storey Portions of the above note extracted and edited from previous visit as well as active information included in the EMR. Referring Provider: Ronda MATA [[id number]] Allergies As of Date: 08/09/2024 (No Known Allergies) Date Reviewed: 08/09/2024 Reviewed by: Jillian Waddell LPN - Fully Assessed Reason for Visit: Prostate Cancer [590] Primary Visit Diagnosis:Cancer of prostate w/med recur risk (T2b-c or Ector 7 or PSA 10-20) ([facility]) [C61] Order(s):PSA (OUTSIDE) [[id number]] Order #: [id number] PROSTATE-SPECIFIC ANTIGEN DIAGNOSTIC [SQPSA] Order #: [id number] FUTURE TESTOSTERONE, TOTAL BY IMMUNOASSAY (ADULT MALES, OR INDIVIDUALS ON TESTOSTERONE THERAPY) [SQTESTO] Order #: [id number] FUTURE Prescriptions as of 08/09/2024 - folic [...] by mouth. Problem List As Of Date 08/09/2024 Noted Resolved Prostate cancer (HCC) [C61] 08/17/2022 Visit Notes: >> Toan WaddellSANDY sommer Fri Aug 09, 2024 9:15 AM Status: Signed AUA= 8 Disposition: Return in about 4 months (around 12/07/2024). Follow-up and Disposition History for Encounter Date Provider Department Center 08/09/2024 [id number] MATA [facility] Encounter Status:Closed by Ronda MATA on 08/09/24 ALLERGIES DATE TYPE / CODE NAME / CODE REACTION SEVERITY SOURCE Drug Class/[id number](SNO MED CT) NO KNOWN ALLERGIES [facility] ENCOUNTERS ADMIT/DISCHARGE ACCOUNT NUMBER ADMITTING ENCOUNTER CLASS LOCATION SOURCE 12/10/2024/ 5 [id number] Ambulatory [facility] 08/09/2024/ 4 [id number] Ambulatory [facility] 05/14/2024/ 4 [id number] Ambulatory Building:[facility] EPIC PAYERS ENCOUNTER GUARANTOR PAYER SUBSCRIBER SOURCE 12/10/2024 Primary Insurance:[employer] MEDICARE PPOPolicy Number: [id number] Date:6069-95-90Pyma Name:Ludivina LAWTONOB: [id number] [place] [id number] [facility] 08/09/2024 Primary Insurance:AETNA MEDICARE PPOPolicy Number: [id number] Date:1170-03-58Afta Name:Ludivina LAWTONOB: [id number] [place] [address] [facility] 05/14/2024 SEGUN LAWTONOB: [id number] [place], [place] [address]Zbc: () Primary Insurance:AETNA MEDICARE ADVANTAGEPolicy Number: [id number] Date:2024-05-14 SEGUN MARYAMMARYOB: [id number] [place] [address] [facility] EPIC
--- OUTSIDE RECORDS SUMMARY | 2025-03-24 08:04 | XMS_ITS | Continuity of Care Document ---
Author Organization [facility] Address [address] [place] [address] Phone Care Team Providers Care Reinforcing Iron Worker Helper Name Role Phone Holland Nico KOO Primary Care Provider Nico Lino DO Attending Provider Care Teams Patient Care Team Team Status: Active Member Role Status Dates Nico Lino DO Primary Care Provider Active Patient Care Team Team Status: Active Member Role Status Dates Nico Lino DO Primary Care Provider Active Start: March 18, 2025 Nico Lino DO Attending Provider Active Sta rt: March 18, 2025 Patient Care Team Team Status: Inactive Member Role Status Dates Nico Lino DO Primary Care Provider Active Start: March 24, 2025 End: March 24, 2025 Nico Lino DO Attending Provider Active Sta rt: March 24, 2025 End: March 24, 2025 Chief Complaint and Reason for Visit Chief Complaint Admit Date 4 mo f/u, A1C March 24, 2025 10:41 am Reason for Visit Admit Date ASHD (arteriosclerotic heart disease) Ju ly 2024 10:41am Chronic kidney disease March 24, 2025 10 :41am Chronic venous insufficiency March 24, 025 10:41am Diabetes mellitus with hyperglycemia Raphael y 2024 10:41am Elevated cholesterol March 24, 2025 10:4 1am Pernicious anemia March 24, 2025 10:41 am Primary hypertension March 24, 2025 10:4 1am Prostate cancer March 24, 2025 10:41 am Weight loss March 24, 2025 10:41 am Allergies, Adverse Reactions, Alerts Allergen Type Severity Reaction Last Updated Verified Status No Known Allergies Allergy Unknown March 24, 2025 11:10a m Yes Active Social History Smoking Status Status Start Date End Date Date of Observa tion Ex-smoker (finding) November 12:03pm Observation Status Observation Response Date of Response Legal Sex Male (finding) Sex Assigned At Male September d1945 Problems Active Problems Medical Problem Onset Date Status Comments Medicare annual wellness vis it, subsequent Unknown Active CATHY (generalized anxiety disorder) Unknown Active Prostate cancer Unknown Active TRUS/Bx 2020 ,Asaf 4+3, group 3,EBT, Brachytherapy and ADT Elevated cholesterol Unknown Active Pernicious anemia Unknown Active Folate deficiency anemia Unknown Active Chronic kidney disease Unknown Active Renal US: no tumor, stones or obstruction - 11/2024 Diabetes mellitus with hyperglycemia Unknown Active Low back pain radiating to r ight leg Unknown Active Weight loss Unknown Active Primary hypertension Unknown Active Right hip pain Unknown Active Chronic venous insufficiency Unknown Active Lumbar spondylosis Unknown Active ASHD (arteriosclerotic heart disease) Unknown Active Medications Medication Status Dose Units Route Directions Qty Days St art Date Stop Date End Date Instructions Adherence Lisinopril 10 mg tablet Discont inued 0 .ROUTE .COMPLEX January 01, 2024 9:26am January 19, 2025 3:05p m TAKE 1 TABLET BY MOUTH EVERY DAY Atenolol 50 mg tablet Discont inued 0 .ROUTE .COMPLEX January 01, 2024 9:26am January 19, 2025 3:05p m TAKE 1 TABLET BY MOUTH EVERY DAY Atorvastati n 80 mg tablet Active 80 MG PO Every evening 90 March 25, 2024 7:02am Complies with drug therapy Sertraline 100 mg tablet Discont inued 0 .ROUTE .COMPLEX 90 April 09, 2024 8:49am Febru glen 2024 10:06 am TAKE 1 TABLET BY MOUTH AT BEDTIME Metformin 1,000 mg tablet Active 0 .ROUTE .COMPLEX 180 April 17, 2024 12:50p m TAKE 1 TABLET BY MOUTH 2 TIMES A DAY with breakfast and evening meal Complies with drug therapy Glimepiride 4 mg tablet Active 0 .ROUTE .COMPLEX 90 Novemb er 2023 7:49am TAKE 1 TABLET BY MOUTH IN THE MORNING 30 MINUTES BEFORE BREAKFAST Complies with drug therapy Folic Acid 1 mg tablet Active 0 .ROUTE .COMPLEX 90 Decemb er 2023 8:31am TAKE 1 TABLET BY MOUTH EVERY DAY Complies with drug therapy Sertraline 100 mg tablet Discont inued 0 .ROUTE .COMPLEX 90 ua 2024 10:06a m February 03, 2025 1:10p m TAKE 1 TABLET BY MOUTH AT BEDTIME Lisinopril 10 mg tablet Active 0 .ROUTE .COMPLEX January 19, 2025 3:03pm TAKE 1 TABLET BY MOUTH EVERY DAY Complies with drug therapy Atenolol 50 mg tablet Active 0 .ROUTE .COMPLEX January 19, 2025 3:04pm TAKE 1 TABLET BY MOUTH EVERY DAY Complies with drug therapy Sertraline 100 mg tablet Active 0 .ROUTE .COMPLEX February 03, 2025 1:09pm TAKE 1 TABLET BY MOUTH AT BEDTIME Complies with drug therapy Celecoxib 200 mg capsule Discont inued 200 MG PO Daily November 21, 2024 1:00am November 21, 2024 11:28 am Celecoxib 200 mg capsule Active 200 MG PO Daily November 21, 2024 11:28a m Complies with drug therapy Glipizide 5 mg tablet Active 5 MG PO Daily March 24, 2025 12:00a m Complies with drug therapy Aspirin 81 mg tablet,luanne yed release (DR/EC) Active 81 MG PO Daily November 23, 2023 1:00am Complies with drug therapy Atenolol 50 mg tablet Discont inued 50 MG PO Daily November 23, 2023 1:00am January 01, 2024 9:26a m Atorvastati n 80 mg tablet Discont inued 80 MG PO Daily at bedtime November 23, 2023 1:00am March 25, 2024 7:02a m Folic Acid 1 mg tablet Discont inued 1 MG PO Daily November 23, 2023 1:00am Dece 2023 8:31a m Glimepiride 4 mg tablet Discont inued 2 MG PO Every morning November 23, 2023 1:00am Novem 2023 7:49a m Lisinopril 10 mg tablet Discont inued 10 MG PO Daily November 23, 2023 1:00am January 01, 2024 9:26a m Metformin 1,000 mg tablet Discont inued 1000 MG PO Twice daily with meals November 23, 2023 1:00am April 17, 2024 12:50 pm Sertraline 100 mg tablet Discont inued 100 MG PO Daily at bedtime November 23, 2023 1:00am April 09, 2024 8:49a m Propylene Glycol (Systane Complete) 0.6 % drops Active 1 DROPS EYE-CONG TH Four times daily as needed Novemb er 2023 1:00am Complies with drug therapy Immunizations Immunization Event Date Not Given Reason Dose Number Immunohematologist Lot Number Vaccine Information Statement (VIS) Detail Administration Location COVID-19 ([employer]) 12Y and older June 14, 2023 Fluzone TIV High-Dose 65YR+ July 30, 2024 [id number] [facility] Influenza vaccine, quadrivalent, adjuvanted June 14, 2023 influenza, unspecified formulation June 24, 2015 influenza, unspecified formulation July 09, 2020 influenza, unspecified formulation June 10, 2021 influenza, unspecified formulation July 25, 2022 Pneumococcal Conjugate Vaccine, 13 valent June 24, 2015 Pneumococcal Polysacc. Vaccine, 23 valent October 04, 2018 Tetanus, Diphtheria, Pertussis (Tdap) January 05, 2023 Relevant Diagnostic Tests and/or Laboratory Data Laboratory Results Test Collection Date/Time Result Date/Time Result Interpretation Reference Range Result Comment Performing Site Estimated Average Glucose March 18, 2025 9:07am March 18, 2025 9:07am 163 mg/dL Hemoglobi n A1c March 18, 2025 9:07am March 18, 2025 9:07am 7.3 % Above high normal 4.5-6.2 ADA RECOMMENDED LIMIT 4.0 - 6.0ADA THERAPEUTIC TARGET < 7.0ACTION SUGGESTED> 7.0 Vital Signs Vital Reading Result Reference Range Collection Date/Time Height 69 [in_i] March 24, 2025 11:15am Weight 85.95 kg March 24, 2025 11:15am Heart Rate 58 /min 60-100 March 24, 2025 11:15am Respiratory rate 18 /min 12-24 March 24, 2 025 11:15am BP Systolic 96 mm[Hg] 100-140 March 24, 2025 11:15am BP Diastolic 62 mm[Hg] 60-100 March 24, 2025 11:15am BMI (Body Mass Index) 28.0 kg/m2 March 242024 11:15am Advance Directives Advance Directive Response Recorded Date/ Time Advance Directives No October 09, 2023 4:12pm Insurance Providers Guarantor Julian Abdi Address [address] [place] [id number] Contact Info. Home Phone: Payer Policy Id Subscriber's Name Subscriber Id Effectiv e Date Expiration Date [employer] ALICE MAZARIEGOS [id number] Julian Abdi [id number] Encounters Encounter Location(s) Arrival/Admit Date Discharge/Depart Date Provider(s) Non-patient / Non-visit -[facility] March 18, 2025 9:07am Nico Lino DO Departed Physician/Prov ider Office Visit [facility] March 24, 2025 10:41am March 24, 2025 12:02pm Nico Lino DO Recent Diagnosis Onset Date Admit Date ASHD (arteriosclerotic heart disease) Unknown March 24, 2025 10:41am Chronic kidney disease Unknown March 24, 2025 10:41am Chronic venous insufficiency Unknown Mar 10:41am Diabetes mellitus with hyperglycemia Unknown March 24, 2025 10:41am Elevated cholesterol Unknown March 24 10:41am Pernicious anemia Unknown March 24, 2025 10:41am Primary hypertension Unknown March 24 10:41am Prostate cancer Unknown March 24, 2025 1 0:41am Weight loss Unknown March 24, 2025 1 0:41am Assessments Diagnosis Onset Date Resolution Status Admit Date ASHD (arteriosclerotic heart disease) acute March 24, 2025 1 0:41am Chronic kidney disease acute Ju 2024 10:41am Chronic venous insufficiency acute March 24, 2025 10:41am Diabetes mellitus with hyperglycemia acute March 24, 2025 1 0:41am Elevated cholesterol acute March 24, 2025 10:41am Pernicious anemia acute March 10:41am Primary hypertension acute March 24, 2025 10:41am Prostate cancer acute March 24, 2025 10:41am Weight loss acute March 24 10:41am Plan of Treatment Author Nico Lino [facility] Authored March 21, 2025 7:39a m This patient is stable witho ut activity related chest pain, dyspnea or lightheadedness. I instructed them to continue exercise at least 3x weekly and consume a low salt, low fat, high fiber diet. I instructed them to continue secondary prevention measures in reducing risks for recurrent events. I have instructed this patient to follow a comprehensive diabetic treatment plan. I have also instructed them to check their feet daily for calluses and nonhealing ulcers. I have instructed them to have a yearly dilated eye examination. I have reviewed their treatment goals: SBP less than 130, LDL less than 100, FBS less than 140, A1C less than 7%. I have instructed them to maintain a home BS log and bring the results to each of their office visits for review. I have explained the importance of routine monitoring of their A1C, Microalbumin and Lipids. I have explained the benefits of well controlled diabetes in preventing micro and macrovascular complications. Continue Glimepiride and Metformin without interruption I have instructed this patient to consume a healthy, low-fat, low-salt diet. I have also encouraged them to continue exercise with weight loss to achieve/maintain a BMI < 30. I have instructed this patient on the correct procedure for obtaining home BP measurements: - rest for 5 minutes w/o talking. - positioned w/ feet on floor and arms supported. - average best 2/3 readings w/ goal < 135/85. - update office w/ home readings in 2 weeks. Continue Atenolol and Lisinopril without interruption I have instructed this patient on a low fat, high fiber diet and exercise. I have discussed the primary and secondary prevention benefits attributed to lowering LDL cholesterol. I have also discussed the medical treatment of elevated cholesterol, which is based on the 10 year ASCVD risk. Continue Atorvastatin without interruption I have instructed this patient to avoid salt and elevate their lower extremities. I have also recommended use of support stockings. I instructed them to inspect their legs and feet daily for blisters and ulcerations. Mild increase in PSA noted. Consider PSMA PET if continues to increase f/u Rad Oncology TRUS/Bx 2020, Asaf 4+3, group 3, EBT, Brachytherapy and ADT Future Tests Future scheduled test information is unavailable Pending Tests Test Name Ordered Date Scheduled Date Comprehensive Metabolic Panel March 24, 2025 11: 47am Future Visits Future appointment information is unavailable Referrals to Other Providers Referral information is unavailable Future Procedures Procedure Name Ordered Date Scheduled Date Amylase March 24, 2025 11:47am Vitamin B12 March 24, 2025 11:50am Complete Blood Count Auto Diff March 24, 2025 11 :47am Ferritin March 24, 2025 11:50am Folate March 24, 2025 11:50am Lipase March 24, 2025 11:47am Future Medications Future medication information is unavailable Patient Instructions Patient instructions are unavailable
--- OUTSIDE RECORDS SUMMARY | 2025-03-24 12:16 | XMS_ITS | Clinical Summary ---
Author Organization [facility] Address [address] [place], [place] [address] Care Team Providers Care Certified First Assistant Name Role Phone Nico Lino DO Primary Care Provider [phone] Joseph Vasques Carlos A Jr. Unavailable [phone] Allergies No known active allergies Medications aspirin, [...] is lower risk 7 08/17/2023 Data from: https://www.neighborhoodatlas.medicine.[facility].edu/. Last address used for calculation [address] [facility] 08/17/2023 Sex and Gender Information [...] AM EDT Office Visit Radiation Oncology [address] [place] [address] Ronda Bartlett MD [address] [place] [address] [place] [address] Labs to be done at [facility] prior Health Maintenance Due Date [...] history exists Insurance [employer] MEDICARE Care Teams Certified First Assistant Relationship Specialty Start Date End Date Nico Lino DO [address] [place] [address] PCP - General Internal Medicine 02/10/21 Joseph Vasques Jr. [address] [place] [id number] Urology 02/10/21
--- OUTSIDE RECORDS SUMMARY | 2025-03-24 12:16 | XMS_ITS | Clinical Summary ---
Author Organization [facility] Address [address] [place] [address] Care Team Providers Care Station Engineer Main Line Name Role Phone Nico Lino DO Primary Care Provider [phone] Allergies No known active allergies Medications atorvastatin [...] Due Date Last Done Comments Influenza Vaccine (#1) 2025 3, 07/25/2022, 06/10/2021, Additional history exists Pneumococcal Vaccine: 65+ Years Completed 9, 06/24/2015 Insurance [employer] MEDICARE ADVANTAGE Care Teams Station Engineer Main Line Relationship Specialty Start Date End Date Nico Lino DO PCP - General Internal Medicine 05/14/24
--- OUTSIDE RECORDS SUMMARY | 2025-03-24 12:16 | XMS_ITS ---
Author Organization [facility] Address [address] [place], [place] [address] Care Team Providers Care Shear Setter Name Role Phone Nico Lino DO Primary Care Provider [phone] Joseph Vasques Jr. Unavailable [phone] Active Problems Problem Noted Date Diagnosed Date [...] Dr. Ketan Bartlett Other Providers: Irlanda Castro APRN.ROCKBOARD LATHER Treatment Summary Diagnosis Cancer Type: Adenocarcinoma of [...] Resources you may be interested in: www.cancer.net Software Manager Stock Order Lister Art Therapy Support Groups- Contact Software Manager for dates and times. Prepared by: Irlanda Castro APRN.ROCKBOARD LATHER Delivered on: August 18, 2022 - This [...]
[2025-03-24 12:56] LABS: Hematocrit 36.7 % (42.0-54.0); Hemoglobin 12.2 g/dL (14.0-18.0); Immature Granulocytes Abs Auto 0.02 10^3/uL (0.00-0.03); Immature Granulocytes Pct Auto 0.2 % (0.0-0.5); Lymphocytes Absolute Auto 1.8 10^3/uL (1.2-3.8); Mean Corpuscular HGB Conc 33.2 g/dL (29.9-35.2); Mean Corpuscular Hemoglobin 30.0 pg (25.9-34.0); Mean Corpuscular Volume 90.4 fL (80.0-94.0); Platelet Count 398 10^3/uL (150-450); Red Blood Count 4.06 10^6/uL (4.70-6.10); White Blood Count 10.0 10^3/uL (4.0-11.0)
[2025-03-24 13:01] LABS: Alanine Aminotransferase 25 U/L (16-63); Albumin Globulin Ratio 0.8; Albumin Level 3.4 g/dL (3.4-5.0); Alkaline Phosphatase 90 U/L (46-116); Amylase 62 U/L (25-115); Anion Gap 17.5; Aspartate Amino Transferase 18 U/L (15-37); Blood Urea Nitrogen 34.0 mg/dL (7.0-18.0); Calcium 9.0 mg/dL (8.5-10.1); Carbon Dioxide 21.2 mmol/L (21.0-32.0); Chloride 107 mmol/L (98-107); Estimated GFR (African America 46 (>=60 mL/min/1.73m^2); Estimated GFR (Non-African Ame 38 (>=60 mL/min/1.73m^2); Globulin 4.4 g/dL; Glucose 108 mg/dL (74-106); Lipase 46.0 U/L (16.0-77.0); Potassium 4.7 mmol/L (3.5-5.1); Sodium 141 mmol/L (136-145); Total Protein 7.8 g/dL (6.4-8.2)
[2025-03-24 13:42] LABS: Ferritin 174.0 ng/mL (26.0-388.0); Folate 25.80 ng/mL (8.60-58.90)
[2025-03-25 04:08] LABS: Vitamin B12 >2000 pg/mL (232-1245)
== END 2025-03-24 12:11 | disposition home or self-care (01) ==
LOC: LAB 12:12
PROVIDERS: PCP Internal Medicine; Visit Provider Internal Medicine
DX: R63.4 Abnormal weight loss (principal); N18.9 Chronic kidney disease, unspecified; E11.65 Type 2 diabetes mellitus with hyperglycemia; D51.0 Vitamin B12 deficiency anemia due to intrinsic factor deficiency; I25.10 Atherosclerotic heart disease of native coronary artery without angina pectoris; D64.9 Anemia, unspecified
CPT/HCPCS: 36415; 80053; 82150; 82607; 82728; 82746; 83690; 85025

== ENCOUNTER 2025-05-27 08:14 | Emergency (ER) | payer MEDICARE, SELFPAY ==
[2025-05-27 08:25] VITALS: BP 138/74; PULSE 70; TEMP 36.4; O2SAT 98; BMI 28.1
--- NOTE | 2025-05-27 08:31 | XR_ITS ---
The [address] [address] Patient Name: SEGUN JOHNSON MRN: [id number] date: 1945 Sex: M Assigned Patient Location: ER Current Patient Location: ER Accession/Order Number: [id number] Exam Date: 05/27/2025 08:58 Report Date: 05/27/2025 09:27 At the request of: RUBIN MUELLER MD Procedure: XR humerus LT LEFT HUMERUS - 2 views CLINICAL HISTORY: Patient fell into a glass hutch and has laceration at the left mid upper arm. Rule out foreign body, glass COMPARISON: None AP and lateral views were obtained. There is no evidence of fracture or dislocation. There is some artifact from dressings. No definite radiopaque foreign bodies are seen. XR/XR humerus LT IMPRESSION: NO ACUTE BONY INJURY OR OBVIOUS RADIOPAQUE FOREIGN BODY. Impression dictated by: Chelsey Rodriguez M.D. 05/27/2025 9:27 AM Dictation Location: [place] [address] Electronically authenticated by: [id number] Y Date: 05/27/2025 09:27
--- NOTE | 2025-05-27 08:31 | ED.GENADUL1 ---
HPI HPI - General Adult General Chief complaint: Wound/Laceration Stated complaint: fall - laceration arm Time Seen by Provider: 05/27/25 08:17 Source: family Mode of arrival: Wheelchair Limitations: no limitations History of Present Illness HPI narrative: 79-year-old male presents for laceration to his left upper arm sustained at 3:00 this morning when he lost his balance and he fell into a cabinet that has glass on the front of it and the glass broke. No other injury was sustained. He did not realize he was cut it first. No weakness or numbness. His last tetanus shot was approximately 3-4 years ago. Related Data Home Medications ?Medication ?Instructions ?Recorded ?Confirmed atenolol 25 mg tablet 25 mg PO Q24H 05/27/25 05/27/25 atorvastatin 80 mg tablet 80 mg PO DAILY 05/27/25 05/27/25 folic acid 1 mg tablet 1 mg PO DAILY 05/27/25 05/27/25 glipizide 5 mg tablet 5 mg PO DAILY 05/27/25 05/27/25 sertraline 100 mg tablet 100 mg PO DAILY 05/27/25 05/27/25 Allergies Allergy/AdvReac Type Severity Reaction Status Date / Time No Known Drug Allergies Allergy Verified 05/27/25 08:23 Opioid HPI Opioid Management Most Recent Opioid Data: Last Pain Scale 3 Today, 08:31 Review of Systems ROS Narrative A ten point review of systems is negative except as noted above. PFSH PFSH Social History Little interest or pleasure in doing things: not at all Feeling down, depressed, or hopeless: not at all Exam Narrative Exam Narrative: Nurses note and vital signs reviewed and patient is not hypoxic. General: The patient appears well and in no apparent distress. Patient is resting comfortably on cart. Skin: Warm, dry, no pallor noted. There is no rash noted. Head: Normocephalic, atraumatic Eye: Normal conjunctiva, no drainage Ears, Nose, Mouth, and Throat: oral mucosa is moist. Nares patent. Cardiovascular: Regular Rate and Rhythm Respiratory: Patient is in no distress, no accessory muscle use GI: Soft and nontender Musculoskeletal: The left upper arm on the triceps side shows a curved laceration which is 9 cm in length, of which 6 cm require sutures. There is 1.5 cm on each end which is superficial.. Wrist and elbow have full range of motion. Radial pulse 2+. Fingers have full range of motion. Neurological: A&O, normal speech Psychiatric: Cooperative Constitutional Vital Signs, click to edit/add: Last Vital Signs Temp 97.5 F L 05/27/25 08:25 Pulse 70 05/27/25 08:25 Resp 20 05/27/25 08:25 BP 138/74 05/27/25 08:25 Pulse Ox 98 05/27/25 08:25 O2 Del Method Room Air 05/27/25 08:25 Course Vital Signs Vital signs: Vital Signs Temperature 97.5 F L 05/27/25 08:25 Pulse Rate 70 05/27/25 08:25 Respiratory Rate 20 05/27/25 08:25 Blood Pressure 138/74 05/27/25 08:25 Pulse Oximetry 98 05/27/25 08:25 Oxygen Delivery Method Room Air 05/27/25 08:25 Temperature 97.5 F L 05/27/25 08:25 Pulse Rate 70 05/27/25 08:25 Respiratory Rate 20 05/27/25 08:25 Blood Pressure 138/74 05/27/25 08:25 Pulse Oximetry 98 05/27/25 08:25 Oxygen Delivery Method Room Air 05/27/25 08:25 Medical Decision Making MDM Narrative Medical decision making narrative: The following procedure was performed by me. Local infiltration was carried out with 1% lidocaine without epinephrine resulting in complete skin anesthesia. The area was prepped with Betadine x 3 and draped sterilely. It was explored for foreign bodies and none were found. The wound was then closed with eight 4-0 Ethilon sutures resulting in good skin reapproximation and no complications. He tolerated the procedure well. Sutures are to be removed in a week. Tetanus is up-to-date already. Treatment diagnosis and follow-up were discussed thoroughly. Imaging Data Left humerus: Radiologist's impression: ITS Impressions Humerus X-Ray 05/27/25 08:31 IMPRESSION: NO ACUTE BONY INJURY OR OBVIOUS RADIOPAQUE FOREIGN BODY. Impression dictated by: Chelsey Rodriguez M.D. 05/27/2025 9:27 AM Dictation Location: [place] [address] Electronically authenticated by: [id number] Y Date: 05/27/2025 09:27 Discharge Plan Discharge Chief Complaint: Wound/Laceration Clinical Impression: Laceration of left upper arm Patient Disposition: Home, Self-Care Time of Disposition Decision: 09:32 Condition: Good Mode of Transportation: Private Vehicle Prescriptions / Home Meds: No Action atenolol 25 mg tablet 25 mg PO Q24H atorvastatin 80 mg tablet 80 mg PO DAILY folic acid 1 mg tablet 1 mg PO DAILY glipizide 5 mg tablet 5 mg PO DAILY sertraline 100 mg tablet 100 mg PO DAILY Print Language: Citizen Of [place] Instructions: Laceration (ED) Additional Instructions: Sutures to be removed in 1 week. Referrals: Nico Lino DO [Primary Care Provider, Internal Medicine] - 1 week
--- OUTSIDE RECORDS SUMMARY | 2025-05-27 08:34 | XMS_ITS | CCD ---
Author Organization [facility] Care Team Providers Care Sales Service Representative Name Role Phone PHYSICIAN, DEFAULT Unavailable Unavailable [...] Admitting Unavailable ANA ., CYNTHIA Attending Unavailable FAUSTINA ., HALLE CASTELLANOS Consulting Unavailevangelina e ADOLFO, [...] Primary Care Unavailable Ronda BARTLETT Attending Unavailable NICO LINO Primary Care Unavailable ENGELER G TONI Referring Unavailable ENGELER G TONI Attending Unavailable NICO LINO Primary Care Unavailable ALEXANDRARRonda Referring Unavailable ENGRUSTYR G TONI Attending Unavailable Nico Lino DO Primary Care Provider Nico Lino DO Attending Provider Allergies Allergy Classification Reported Allergen(s) Allergy Type Date of Onset Reaction(s) Facility (1 source) Shellfish Containing Products Drug allergy (disorder) 9 [facility] Repository (3 sources) Seafood; Translations: [Seafood] Drug allergy Itching [facility] (1 source) patient allergy list reviewed by nurse or physicia Propensity to adverse reactions Comment:Done [facility] Other (1 source) Shrimp product; Translations: [Shrimp] Propensity to adverse reactions (disorder) [facility] Repository (1 source) No Known Medication Allergies; Translations: [No Known Medication Allergies] Propensity to adverse reactions (disorder) [facility] Repository Medications Current Medications Medication Drug Class(es) Dates Sig (Normalized) Sig (Original) aspirin 81 mg delayed release oral tablet (19 sources) Platelet Aggregation Inhibitor, Nonsteroidal Anti-inflammatory Drug Start: 01-22-2021 take 1 tablet by mouth once daily Aspirin 81 mg tablet,delayed release (DR/EC) Active 81 MG PO Daily November 23, 2023 1:00am Complies with drug therapy Comment on above: Take by mouth. atenolol 25 mg oral tablet (20 sources) beta-Adrenergic Tatyana Start: 04-16-2025 take 1 tablet by mouth once daily Atenolol 25 mg tablet Active 25 MG PO Daily April 16, 2025 1:48pm Complies with drug therapy Start: 01-01-2024 End: 04-16-2025 take 1 tablet by mouth once daily Atenolol 50 mg tablet Discontinued 0 .ROUTE .COMPLEX January 19, 2025 3:04pm April 16, 2025 1:50pm TAKE 1 TABLET BY MOUTH EVERY DAY [...] Status: Ordered celecoxib 200 mg oral capsule (6 sources) Nonsteroidal Anti-inflammatory Drug Start: 11-22-19 End: 11-22-19 take 1 capsule by mouth once daily Celecoxib 200 mg capsule Active 200 MG PO Daily November 21, 2024 11:28am Complies with drug therapy cyanocobalamin, vitamin B-12, (VITAMIN B12 ORAL) (3 sources) cyanocobalamin, vitamin B-12, (VITAMIN B12 ORAL) Take by mouth. Active cyanocobalamin, vitamin B-12, (VITAMIN B12 ORAL) Take by mouth. 0 Active folic acid 1 mg oral tablet (17 sources) Start: 08-19-2024 take 1 tablet by mouth once daily Folic Acid 1 mg tablet Active 0 .ROUTE .COMPLEX August 19, 2024 8:31am TAKE 1 TABLET BY MOUTH EVERY DAY Complies with drug therapy Start: 11-23-2023 End: 08-19-2024 take 1 tablet by mouth once daily Folic Acid 1 mg tablet Discontinued 1 MG PO Daily November 23, 2023 1:00am August 19, 2024 8:31am glipiZIDE 5 mg oral tablet (3 sources) Sulfonylurea Start: 03-24-2025 End: 04-16-2025 take 1 tablet by mouth once daily Glipizide 5 mg tablet Active 5 MG PO Daily April 16, 2025 1:50pm Complies with drug therapy ketorolac tromethamine 5 mg/ml ophthalmic solution (3 [...] sources) Angiotensin Converting Enzyme Inhibitor Start: 01-01-2024 End: 01-19-2025 take 1 tablet by mouth once daily Lisinopril 10 mg tablet Active 0 .ROUTE .COMPLEX 90 January 19, 2025 3:03pm TAKE 1 TABLET BY MOUTH EVERY DAY Complies with drug therapy Start: 01-14-2021 End: 01-01-2024 take 1 tablet by mouth once daily Lisinopril 10 mg tablet Discontinued 10 MG PO Daily November 23, 2023 1:00am January 01, 2024 9:26am Comment on above: Take 10 mg by mouth. loperamide hydrochloride 2 mg oral tablet (10 sources) Opioid Agonist Start: 06-16-2021 take 1 [...] mouth. metFORMIN hydrochloride 1000 mg oral tablet (20 sources) Biguanide Start: 04-17-2024 take 1 tablet by mouth twice daily at dinner Metformin 1,000 mg tablet Active 0 .ROUTE .COMPLEX 180 April 17, 2024 12:50pm TAKE 1 TABLET BY MOUTH 2 TIMES A DAY with breakfast and evening meal Complies with drug therapy Start: 11-23-2023 End: 04-17-2024 take 1 tablet [...] directed 5 mL 1 05/14/2024 05/15/2024 Active pantoprazole 40 mg delayed release oral tablet (2 sources) Proton Pump Inhibitor Start: 03-25-2025 End: 04-16-2025 Pantoprazole 40 mg tablet,delayed release (DR/EC) Active 40 MG PO Daily 90 April 16, 2025 1:52pm take on empty stomach, 30 minutes prior to bkfst Complies with drug therapy prednisoLONE acetate 10 mg/ml ophthalmic suspension (6 sources) Corticosteroid Start: 07-03-2024 prednisoLONE a cetate [...] Active propylene glycol 6 mg/ml ophthalmic solution (4 sources) Start: 07-30-2024 Propylene Glyc ol (Systane Complete) 0.6 % drops Active 1 DROPS EYE-BOTH Four times daily as needed July 30, 2024 1:00am Complies with drug therapy Start: 07-30-2024 Propylene Glyc ol (Systane Complete) 0.6 % drops Active 1 DROPS EYE-BOTH Four times daily as needed July 30, 2024 1:00am tamsulosin hydrochloride 0.4 mg oral capsule (6 sources) alpha-Adrenergic Tatyana Start: 06-09-2022 End: 08-17-2023 take 1 capsule by mouth once daily tamsulosin 0.4 mg Cap 0.4 mg = 1 cap(s), Oral, Daily, # 30 cap(s), Refills(s) 11, Pharmacy: [id number], 173, cm, 11/02/21 11:02:00 EST, Height/Length Dosing, 99.9, kg, 05/03/22 10:56:00 EDT, Weight Dosing Start Date: 06/09/22 Status: Ordered Comment on above: Take 0.4 mg by mouth once daily. vitamin B12 (1 source) Vitamin B12 Start: 07-26-2023 take 1 tablet under the tongue once [...] up to 1000 mcg (4 sources) Start: 11-30-19 B-12 - up to 1000 mcg Nov, 1000 mcg Calcium (1 source) Phosphate Binder, Calcium End: 02-18-20 CALCIUM ORAL Take by mouth. 0 02/17/2022 Discontinued (Discontinued by another Health Care Provider) Comment on above: Take by mouth. cholecalciferol, vitamin D3, (VITAMIN D3 ORAL) (1 source) End: 02-18-20 cholecalciferol, vitamin D3, (VITAMIN D3 ORAL) Take by mouth. 0 02/17/2022 Discontinued (Discontinued by another Health Care Provider) Comment on above: Take by mouth. glimepiride 4 mg oral tablet (20 sources) Sulfonylurea Start: 07-20-20 24 End: 04-16-20 25 take 1 tablet by mouth before breakfast Glimepiride 4 mg tablet Discontinued 0 .ROUTE .COMPLEX 90 July 20, 2024 7:49am April 16, 2025 1:50pm TAKE 1 TABLET BY MOUTH IN THE [...] Active Comment on above: Inject intramuscular ly. sertraline 100 mg oral tablet (20 sources) Serotonin Reuptake Inhibitor Start: 04-09-20 End: 02-04-20 take 1 tablet by mouth at bedtime Sertraline 100 mg tablet Discontinued 0 .ROUTE .COMPLEX 90 October 28, 2024 10:06am February 03, 2025 1:10pm TAKE 1 TABLET BY MOUTH AT BEDTIME [...] to other specified organisms] Episodic Anxiety disorders (11 sources) Generalized anxiety disorder; Translations: [Generalized anxiety disorder] Chronic Appendicitis and other appendiceal conditions (2 sources) Appendicitis 06-16-2021 Episodic Cancer of prostate (20 sources) Malignant tumor of prostate; Translations: [Malignant neoplasm of prostate] Onset: 02-17-2021 Chronic Comment on above: TRUS/Bx 2020Gleason 4+3, group 3EBT, Brachytherapy and ADT TRUS/Bx 2020,Asaf 4+3, group 3,EBT, Brachytherapy and ADT Cataract (6 sources) Bilateral age-related nuclear cataracts; Translations: [Age-related nuclear cataract, bilateral] Onset: 05-14-2024 07-02-2024 Chronic Chronic kidney disease (6 sources) Chronic kidney disease; Translations: [Chronic kidney disease, unspecified] 07-31-2024 Chronic Comment on above: Renal US: no tumor, stones or obstruction - 11/2024 Coronary atherosclerosis and other heart disease (20 sources) Coronary occlusion; Translations: [Coronary arteriosclerosis] Onset: 06-24-2015 06-16-2021 Chronic Deficiency and other anemia (5 sources) 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; Translations: [Folate deficiency anemia, unspecified] Episodic Deficiency and other anemia (5 sources) Anemia; Translations: [Anemia, unspecified] Episodic Deficiency and other anemia (13 sources) Pernicious anemia; Translations: [Vitamin B12 deficiency anemia due to intrinsic factor deficiency] 11-23-2023 Episodic Deficiency and other anemia (2 sources) Vitamin B12 deficiency anemia due to intrinsic factor deficiency Episodic Deficiency and other anemia (1 source) Folate deficiency anemia, unspecified Episodic Deficiency and other anemia (5 sources) Nutritional anemia; Translations: [Folate deficiency anemia, unspecified] 11-23-2023 Episodic Diabetes mellitus with complications (20 sources) Hyperglycemia due to type 2 diabetes mellitus; Translations: [Type 2 diabetes mellitus with hyperglycemia] Onset: 11-29-2022 Chronic Diabetes mellitus without complication (2 sources) Diabetes mellitus 06-16-2021 Chronic Disorders of lipid metabolism (20 sources) Pure hypercholesterolemia ; Translations: [Familial hypercholesterolemia ] Onset: 06-24-2015 Chronic E Codes: Cut/pierceb (1 source) Contact with other sharp object(s), not elsewhere classified, initial encounter; Translations: [COX MONETT OTH SHRP OB NOT ELSW CLASS INI] [...] sources) H/O: high risk medication; Translations: [Other long term care phlebotomist (current) drug therapy] Episodic Other aftercare (1 source) Other long term care phlebotomist (current) drug therapy; Translations: [OTH DETENTION CURRENT DRUG THERAPY] Onset: 01-09-2023 Episodic Other aftercare (1 source) alf (current) use of aspirin; Translations: [DETENTION CURRENT USE OF ASPIRIN] Onset: 01-09-2023 Episodic Other aftercare (1 source) alf (current) use of oral hypoglycemic drugs; Translations: [DETENTION USE ORAL HYPOGLYCEMIC DX] Onset: 01-09-2023 Episodic Other aftercare (1 source) Long-term current use of drug therapy; Translations: [Other long term care phlebotomist (current) drug therapy] Episodic Other diseases of kidney and ureters (1 source) Urinary tract obstruction; Translations: [Other obstructive and reflux uropathy] Onset: 11-01-2022 Episodic Other diseases of veins and lymphatics (13 sources) Peripheral venous insufficiency; Translations: [Venous insufficiency (chronic) (peripheral)] 11-23-2023 Episodic Other diseases of veins and lymphatics (4 sources) Venous insufficiency (chronic) (peripheral); Translations: [Venous (peripheral) insufficiency, unspecified] Episodic Other injuries and conditions due to external causes (1 source) History of fall; Translations: [History of falling] Episodic Other non-traumatic joint disorders (3 sources) Hip pain; Translations: [Pain in right hip] [...] to excess calories] Onset: 06-24-2015 Chronic Other nutritional; endocrine; and metabolic disorders (5 sources) Weight decreased; Translations: [Abnormal weight loss] 03-24-2025 Episodic Other upper respiratory disease (5 sources) Allergic rhinitis due to pollen; Translations: [Allergic rhinitis due to pollen] Chronic Spondylosis; intervertebral disc disorders; other back problems (2 sources) Lumbar spondylosis; Translations: [Spondylosis without myelopathy or radiculopathy, lumbar region] 11-21-2024 Chronic Spondylosis; intervertebral disc disorders; other back problems (6 sources) Low back pain; Translations: [Low back [...] Test Name Value Interpretation Reference Range Facility Basophils Auto (Bld) [#/Vol] Ordered By: Nico Lino on 03-24-2025 Basophils (Bld) [#/Vol] 0.2 10 3/uL High 0.0-0.1 [facility] Basophils/100 WBC Auto (Bld) Ordered By: Nico Lino on 03-24-2025 Basophils/100 WBC (Bld) 1.6 % 0.2-2.0 [facility] Eosinophils/100 WBC Auto (Bl d)Ordered By: Nico Lino on 03-24-2025 Eosinophils/100 WBC (Bld) 5.4 % 0.9-7.0 [facility] Erythrocyte distribution wid th Auto (RBC) [Ratio]Ordered By: Nico Lino on 03-24-2025 Erythrocyte distribution width (RBC) [Ratio] 15.3 % High 11.0-15.0 [facility] Estimated glomerular filtrat ion rate (GFR) non- AmericanOrdered By: Nico Lino on 03-24-2025 GFR/1.73 sq M.predicted among non-blacks MDRD (S/P/Bld) [Vol rate/Area] 38 mL/min/{1.73_m2} Low >=60 mL/min/1.73m 2 [facility] Globulin Calc (S) [Mass/Vol] Ordered By: Nico Lino on 03-24-2025 Globulin (S) [Mass/Vol] 4.4 g/dL [facility] Hematocrit Auto (Bld) [Volum e fraction]Ordered By: Nico Lino on 03-24-2025 Hematocrit (Bld) [Volume fraction] 36.7 % Low 42.0-54.0 [facility] Hemoglobin [Mass/volume] in BloodOrdered By: Nico Lino on 03-24-2025 Hemoglobin (Bld) [Mass/Vol] 12.2 g/dL Low 14.0-18.0 [facility] Laboratory - Chemistry and C hemistry - challengeOrdered By: Nico Lion on 03-24-2025 Albumin [Mass/Vol] 3.4 g/dL 3.4-5.0 [facility] ALP [Catalytic activity/Vol] 90 U/L 46-116 [facility] ALT [Catalytic activity/Vol] 25 U/L 16-63 [facility] Amylase [Catalytic activity/Vol] 62 U/L 25-115 [facility] AST [Catalytic activity/Vol] 18 U/L 15-37 [facility] Bilirubin [Mass/Vol] 0.3 mg/dL 0.2-1.0 [facility] Calcium [Mass/Vol] 9.0 mg/dL 8.5-10.1 [facility] Chloride [Moles/Vol] 107 mmol/L 98-107 [facility] CO2 [Moles/Vol] 21.2 mmol/L 21.0-32.0 [facility] Creatinine [Mass/Vol] 1.75 mg/dL High 0.70-1.30 [facility] Ferritin [Mass/Vol] 174.0 ng/mL 26.0-388.0 [facility] GFR/1.73 sq M.predicted MDRD (S/P/Bld) [Vol rate/Area] 46 mL/min/{1.73_m2} Low >=60 mL/min/1.73m 2 [facility] Glucose [Mass/Vol] 108 mg/dL High 74-106 [facility] Lipase [Catalytic activity/Vol] 46.0 U/L 16.0-77.0 [facility] Potassium [Moles/Vol] 4.7 mmol/L 3.5-5.1 [facility] Protein [Mass/Vol] 7.8 g/dL 6.4-8.2 [facility] Sodium [Moles/Vol] 141 mmol/L 136-145 [facility] Urea nitrogen [Mass/Vol] 34.0 mg/dL High 7.0-18.0 [facility] Urea nitrogen/Creatinine [Mass ratio] 19.4 mg/mg [facility] Laboratory - Hematology and Cell countsOrdered By: Nico Lino on 03-24-2025 Immature granulocytes/100 WBC (Bld) 0.2 % 0.0-0.5 [facility] Leukocytes [#/volume] correc opal for nucleated erythrocytes in Blood by Automated counOrdered By: Nico Lino on 03-24-2025 WBC corrected for nucl RBC Auto (Bld) [#/Vol] 10.0 10 3/uL 4.0-11.0 [facility] Lymphocytes Auto (Bld) [#/Vo l]Ordered By: Nico Lino on 03-24-2025 Lymphocytes (Bld) [#/Vol] 1.8 10 3/uL 1.2-3.8 [facility] Lymphocytes/100 WBC Auto (Bl d)Ordered By: Nico Lino on 03-24-2025 Lymphocytes/100 WBC (Bld) 17.5 % Low 20.5-60.0 [facility] MCH Auto (RBC) [Entitic mass ]Ordered By: Nico Lino on 03-24-2025 MCH (RBC) [Entitic mass] 30.0 pg 25.9-34.0 [facility] MCHC Auto (RBC) [Mass/Vol]Or dered By: Nico Lino on 03-24-2025 MCHC (RBC) [Mass/Vol] 33.2 g/dL 29.9-35.2 [facility] MCV Auto (RBC) [Entitic vol] Ordered By: Nico Lino on 03-24-2025 MCV (RBC) [Entitic vol] 90.4 fL 80.0-94.0 [facility] Monocytes Auto (Bld) [#/Vol] Ordered By: Nico Lino on 03-24-2025 Monocytes (Bld) [#/Vol] 0.8 10 3/uL 0.3-0.8 [facility] Monocytes/100 WBC Auto (Bld) Ordered By: Nico Lino on 03-24-2025 Monocytes/100 WBC (Bld) 7.6 % 1.7-12.0 [facility] Neutrophils Auto (Bld) [#/Vo l]Ordered By: Nico Lino on 03-24-2025 Neutrophils (Bld) [#/Vol] 6.8 10 3/uL High 1.4-6.5 [facility] Neutrophils/100 WBC Auto (Bl d)Ordered By: Nico Lino on 03-24-2025 Neutrophils/100 WBC (Bld) 67.7 % 43.0-75.0 [facility] No Panel InformationOrdered By: Nico Lino on 03-24-2025 Eosinophils # (Auto) 0.5 10 3/uL 0.0-0.7 [facility] Folate 25.80 ng/mL 8.60-58.90 [facility] Immature Granulocyte # (Auto) 0.02 10 3/uL 0.00-0.03 [facility] Vitamin B12 Level >2000 pg/mL Abnormal [id number] [facility] Comment on above: Performed at: - [facility] [address] [id number] Director: Rocco Lopez PhD, Phone: [phone] Platelet mean volume Auto (B ld) [Entitic vol]Ordered By: Nico Lino on 03-24-2025 Platelet mean volume (Bld) [Entitic vol] 11.2 fL 9.5-13.5 [facility] Platelets Auto (Bld) [#/Vol] Ordered By: Nico Lino on 03-24-2025 Platelets (Bld) [#/Vol] 398 10 3/uL 150-450 [facility] RBC Auto (Bld) [#/Vol]Ordere d By: Nico Lino on 03-24-2025 RBC (Bld) [#/Vol] 4.06 10 6/uL Low 4.70-6.10 [facility] Serum or plasma albumin/glob ulin mass ratioOrdered By: Nico Lino on 03-24-2025 Albumin/Globulin [Mass ratio] 0.8 {ratio} [facility] Serum or plasma anion gap de terminationOrdered By: Nico Lino on 03-24-2025 Anion gap [Moles/Vol] 17.5 mmol/L [facility] Glucose mean value [Mass/vol ume] in Blood Estimated from glycated hemoglobinOrdered By: Nico Lino on 03-18-2025 Average glucose Estimated from glycated hemoglobin (Bld) [Mass/Vol] 163 mg/dL [facility] Hemoglobin A1c percentageOrd ered By: Nico Lino on 03-18-2025 HbA1c (Bld) [Mass fraction] 7.3 % High 4.5-6.2 [facility] Comment on above: ADA RECOMMENDED LIMI T 4.0 - 6.0ADA THERAPEUTIC TARGET < 7.0ACTION SUGGESTED> 7.0 CNOVon 12-10-2024 CNOV Office Visit (RADTSA) ---- SEGUN JOHNSON ([id number]) 1945 M Date Time Provider Department 12/10/24 2:45 PM Ronda BARTLETT During your visit today, we recorded the following information about you: Temperature Pulse Respiration Blood pressure 96.5 degrees 60/minute 18/minute 112/69 Weight 91.8 kg Katiana Acharya RN 12/17/2024 10:57 AM Signed AUA 10 MARGOT Israel G Phillip, MD 12/17/2024 10:57 AM Signed ) C. 9/radiation Oncology - Follow Up Note PATIENT NAME: Segun Johnson PATIENT DIAGNOSIS: Prostate adenocarcinoma, initial PSA 11.5, biopsy Prather score 4 + 3 = 7 (grade [...] boost. Clinically doing well. PSA with minimal global climate change analyst the last 3 to 4 months. Has risen over the last 12 months still likely related to testosterone recovery after prior ADT. Recommend continued close observation. If continues to climb consider PSMA PET. Signed by: Ronda Bartlett MD cc: Nico Lino (Mikhail) [facility] [place] [address] Portions of the above note extracted and edited from previous visit as well as active information included in the EMR. Allergies As of Date: 12/10/2024 (No Known Allergies) Date Reviewed: 12/10/2024 Reviewed by: Katiana Acharya, MARGOT - Fully Assessed Reason for Visit: Prostate Cancer [590] Primary Visit Diagnosis:Cancer of prostate w/med recur risk (T2b-c or Asaf 7 or PSA 10-20) ([facility]) [C61] Order(s):PSA (OUTSIDE) [3137077] Order #: [id number] PROSTATE-SPECIFIC ANTIGEN DIAGNOSTIC [SQPSA] Order #: [id number] FUTURE TESTOSTERONE, TOTAL BY IMMUNOASSAY (ADULT MALES, OR INDIVIDUALS ON TESTOSTERONE THERAPY) [SQTESTO] Order #: [id number] FUTURE Prescriptions as of 12/17/2024 - folic [...] tablet Take 40 mg by mouth. - glim (more content not included)... Normal [facility] PSA (OUTSIDE)on 11-21-2024 [facility] CNOVon 08-09-2024 CNOV Office Visit (RADTSA) ---- SEGUN JOHNSON ([id number]) 1945 M Date Time Provider Department 08/09/24 [...] ASSESSMENT/PLAN: Prostate adenocarcinoma, initial PSA 11.5, biopsy Prather score 4 + 3 = 7 (grade [...] by: Ronda Bartlett MD cc: Nico Lino ([facility]) [address] [place] [address] Dr. Storey Portions of the above note extracted and edited from previous visit as well as active information included in the EMR. Referring Provider: Ronda BARTLETT [[id number]] Allergies As of Date: 08/09/2024 (No Known Allergies) Date Reviewed: 08/09/2024 Reviewed by: Jillian Waddell LPN - Fully Assessed Reason for Visit: Prostate Cancer [590] Primary Visit Diagnosis:Cancer of prostate w/med recur risk (T2b-c or Asaf 7 or PSA 10-20) ([facility]) [C61] Order(s):PSA (OUTSIDE) [[id number]] Order #: [id number] PROSTATE-SPECIFIC ANTIGEN DIAGNOSTIC [SQPSA] Order #: [id number] FUTURE TESTOSTERONE, TOTAL BY IMMUNOASSAY (ADULT MALES, OR INDIVIDUALS ON TESTOSTERONE THERAPY) [SQTESTO] Order #: [id number] FUTURE Prescriptions as of 08/09/2024 - folic [...] - l (more content not included)... Normal [facility] PSA (OUTSIDE)on 07-30-2024 [facility] US Eye+Orbit - bilateralon 0 05-14-2024 Diagnosis: Cataract both eyes (OU) Testing Indication: Performed for preop measurements in the determination of an intraocular lens (IOL) for both eyes (OU) Test Reliability: Good quality both eyes (OU) Interpretation: Good measurements for intraocular lens (IOL) calculation purposes. Calculation made for both eyes (OU). [facility] Radiology Study observation (narrative) [facility] Glucose mean value [Mass/vol ume] in Blood Estimated from glycated hemoglobinon 03-26-2024 Average glucose Estimated from glycated hemoglobin (Bld) [Mass/Vol] 163 mg/dL [facility] Laboratory - Hematology and Cell countson 03-26-2024 HbA1c (Bld) [Mass fraction] 7.3 % High 4.5-6.2 [facility] Comment on above: ADA RECOMMENDED LIMI T 4.0 - 6.0ADA THERAPEUTIC TARGET < 7.0ACTION SUGGESTED> 7.0 Consultation Noteon 02-16-20 24 Consultation Note [id number] B#[id number] Normal [facility] CNOVon 02-15-2024 CNOV Office Visit (RADTSA) ---- SEGUN JOHNSON ([id number]) 1945 M Date Time Provider Department 02/15/24 10:00 AM Ronda BARTLETT During your visit today, we recorded the following information about you: Temperature Pulse Respiration Blood pressure 97.3 degrees 66/minute 18/minute 109/69 Weight 99.2 kg Layo December, FEDERICO 02/15/2024 9:49 AM Signed AUA=9 Ronda Bartlett [...] Ronda Bartlett MD cc: Nico Lino (Sanjeev) [address] [place], [place] [id number] Dr. Storey Portions of the above note extracted and edited from previous visit as well as active information included in the EMR. Referring Provider: Ronda BARTLETT [[id number]] Allergies As of Date: 02/15/2024 (No Known Allergies) Date Reviewed: 02/15/2024 Reviewed by: Venus Vasques FEDERICO - Fully Assessed Reason for Visit: Prostate Cancer [590] Cmt: Follow up Primary Visit Diagnosis:Cancer of prostate w/med recur risk (T2b-c or Asaf 7 or PSA 10-20) ([facility]) [C61] Order(s):PSA (OUTSIDE) [[id number]] Order #: [id number] PROSTATE-SPECIFIC ANTIGEN DIAGNOSTIC [SQPSA] Order #: [id number] FUTURE Prescriptions as of 02/15/2024 - cyanocobalamin, [...] Of Date 02/15/2024 Noted Resolved Prostate cancer ([facility]) [C61] 08/17/2022 Visit Notes: >> Layo VenusFEDERICO Elsi February 15, 2024 9:47 AM Status: Signed AUA=9 Disposition: Return in about 6 months (around 08/17/2024). Follow-up and Disposition History for Encounter Date Provider Department Center 02/15/2024 [id number] BARTLETT Encounter Status:Closed by Ronda BARTLETT on 02/15/24 Normal [facility] No Panel Informationon 02-13 Prostate Specific Antigen Total 0.61 ng/mL <=4.00 [facility] PSA (OUTSIDE)on 02-14-2024 [facility] GLYCOHEMOGLOBIN A1Con 2022 ADA RECOMMENDATION SEE BELOW Normal [facility] Comment on above: Result Comment: ADA RECOMMENDED LIMIT 4.0 - 6.0 ADA THERAPEUTIC TARGET < 7.0 ACTION SUGGESTED > 7.0 Performed By: #### A 1C #### [facility] [address] [address] [address] Radha Brown Glucose [Mass/Vol] 186 mg/dL Normal [facility] Comment on above: Performed By: #### A 1C #### [facility] [address] [place] [address] Dr. Radha Brown HbA1c (Bld) [Mass fraction] 8.1 % Critically high 4.5-6.2 [facility] Comment on above: Performed By: #### A 1C #### [facility] [address] [place] [address] Dr. Radha Brown CBC AUTO DIFFon 07-29-2022 BASO # 0.1 103/ul Normal 0.0-0.1 [facility] Comment on above: Performed By: #### C BC #### [facility] [address] [place] [address] Dr. Radha Brown Basophils/100 WBC (Bld) 0.9 % Normal 0.2-2.0 [facility] Comment on above: Performed By: #### C BC #### [facility] [address] [place] [address] Dr. Radha Brown EO # 0.5 103/ul Normal 0.0-0.7 [facility] Comment on above: Performed By: #### C BC #### [facility] [address] [place] [address] Dr. Radha Brown Eosinophils/100 WBC (Bld) 5.5 % Normal 0.9-7.0 [facility] Comment on above: Performed By: #### C BC #### [facility] [address] [place] [address] Dr. Radha Brown Erythrocyte distribution width (RBC) [Ratio] 15.0 % Normal 11.0-15.0 [facility] Comment on above: Performed By: #### C BC #### [facility] [address] [place] [address] Dr. Radha Brown Hematocrit (Bld) [Volume fraction] 35.6 % Critically low 42.0-54.0 [facility] Comment on above: Performed By: #### C BC #### [facility] [address] [place] [address] Dr. Radha Brown Hemoglobin (Bld) [Mass/Vol] 11.8 g/dL Critically low 14.0-18.0 [facility] Comment on above: Performed By: #### C BC #### [facility] [address] [place] [address] Dr. Radha Brown IG # 0.05 10e3/ul Critically high 0.00-0.03 [facility] Comment on above: Performed By: #### C BC #### [facility] [address] [place] [address] Dr. Radha Brown IG % 0.5 % Normal 0.0-0.5 [facility] Comment on above: Performed By: #### C BC #### [facility] [address] [place] [address] Dr. Radha Brown LYMPH # 1.8 103/ul Normal 1.2-3.8 [facility] Comment on above: Performed By: #### C BC #### [facility] [address] [place] [address] Dr. Radha Brown Lymphocytes/100 WBC (Bld) 19.3 % Critically low 20.5-60.0 [facility] Comment on above: Performed By: #### C BC #### [facility] [address] [place] [address] Dr. Radha Brown MANUAL DIFF REQ NO Normal [facility] Comment on above: Performed By: #### C BC #### [facility] [address] [place] [address] Dr. Radha Brown MCH (RBC) [Entitic mass] 29.2 pg Normal 25.9-34.0 [facility] Comment on above: Performed By: #### C BC #### [facility] [address] [place] [address] Dr. Radha Brown MCHC (RBC) [Mass/Vol] 33.1 g/dL Normal 29.9-35.2 [facility] Comment on above: Performed By: #### C BC #### [facility] [address] [place] [address] Dr. Radha Brown MCV (RBC) [Entitic vol] 88.1 fL Normal 80.0-94.0 [facility] Comment on above: Performed By: #### C BC #### [facility] [address] [address] [address] Radha Brown MONO # 0.6 103/ul Normal 0.3-0.8 [facility] Comment on above: Performed By: #### C BC #### [facility] [address] [address] [address] Radha Brown Monocytes/100 WBC (Bld) 6.4 % Normal 1.7-12.0 [facility] Comment on above: Performed By: #### C BC #### [facility] [address] [place] [address] Dr. Radha Brown NEUT # 6.4 103/ul Normal 1.4-6.5 [facility] Comment on above: Performed By: #### C BC #### [facility] [address] [place] [address] Dr. Radha Brown Neutrophils/100 WBC (Bld) 67.4 % Normal 43.0-75.0 [facility] Comment on above: Performed By: #### C BC #### [facility] [address] [place] [address] Dr. Radha Brown Platelet mean volume (Bld) [Entitic vol] 9.2 fL Critically low 9.5-13.5 [facility] Comment on above: Performed By: #### C BC #### [facility] [address] [place] [address] Dr. Radha Brown PLT 232 103/ul Normal 150-450 [facility] Comment on above: Performed By: #### C BC #### [facility] [address] [place] [address] Dr. Radha Brown RBC 4.04 106/ul Critically low 4.70-6.10 [facility] Comment on above: Performed By: #### C BC #### [facility] [address] [place] [address] Dr. Radha Brown WBC 9.5 103/ul Normal 4.0-11.0 [facility] Comment on above: Performed By: #### C BC #### [facility] [address] [place] [address] Dr. Radha Brown FERRITINon 07-29-2022 Ferritin [Mass/Vol] 164.0 ng/mL Normal 26.0-388.0 [facility] Comment on above: Performed By: #### P SAD, FOL, FERR, FETIBC #### [facility] [address] [address] [address] Radha Brown FOLATEon 07-29-2022 FOLATE 7.60 ng/mL Critically low 8.60-58.90 [facility] Comment on above: Performed By: #### P SAD, FOL, FERR, FETIBC #### [facility] [address] [address] [address] Radha Brown GLYCOHEMOGLOBIN A1Con 2021 ADA RECOMMENDATION SEE BELOW Normal [facility] Comment on above: Result Comment: ADA RECOMMENDED LIMIT 4.0 - 6.0 ADA THERAPEUTIC TARGET < 7.0 ACTION SUGGESTED > 7.0 Performed By: #### A 1C #### [facility] [address] [address] [address] Radha Brown Glucose [Mass/Vol] 134 mg/dL Normal [facility] Comment on above: Performed By: #### A 1C #### [facility] [address] [address] [address] Radha Brown HbA1c (Bld) [Mass fraction] 6.3 % Critically high 4.5-6.2 [facility] Comment on above: Performed By: #### A 1C #### [facility] [address] [address] [address] Radha Brown IRON AND TIBCon 07-29-2022 % SATURATION 22.1 % Normal [facility] Comment on above: Performed By: #### P SAD, FOL, FERR, FETIBC #### [facility] [address] [address] [address] Radha Brown Iron [Mass/Vol] 78.0 ug/dL Normal 65.0-175.0 [facility] Comment on above: Performed By: #### P SAD, FOL, FERR, FETIBC #### [facility] [address] [address] [address] Radha Brown TIBC DIRECT 353.0 ug/dL Normal 250.0-450.0 [facility] Comment on above: Performed By: #### P SAD, FOL, FERR, FETIBC #### [facility] [address] [place] [address] Dr. Radha Brwon LIPID PROFILEon 07-29-2022 CHOL-HDL RATIO NORM SEE BELOW Normal [facility] Comment on above: Result Comment: 3.3 - 4.4 LOW RISK 4.4 - 7.1 AVERAGE RISK 7.1 - 11.0 MODERATE RISK >11.0 HIGH RISK Performed By: #### P SAD, FOL, FERR, FETIBC #### [facility] [address] [place] [address] Dr. Radha Brown Cholesterol [Mass/Vol] 137 mg/dL Normal <=200 [facility] Comment on above: Performed By: #### P SAD, FOL, FERR, FETIBC #### [facility] [address] [address] [address] Radha Brown Cholesterol in HDL [Mass/Vol] 37 mg/dL Critically low 40-60 [facility] Comment on above: Performed By: #### P SAD, FOL, FERR, FETIBC #### [facility] [address] [place] [address] Dr. Radha Brown Cholesterol in LDL [Mass/Vol] 67.0 mg/dL Normal [facility] Comment on above: Performed By: #### P SAD, FOL, FERR, FETIBC #### [facility] [address] [place] [address] Dr. Radha Brown Cholesterol.total/Choles terol in HDL [Mass ratio] 3.7 {ratio} Normal [facility] Comment on above: Performed By: #### P SAD, FOL, FERR, FETIBC #### [facility] [address] [place] [address] Dr. Radha Brown HDL NORMAL > or = 60 mg/dl - LOW CARDIOVASCULAR RISK <40 mg/dl - HIGH CARDIOVASCULAR RISK Normal [facility] Comment on above: Performed By: #### P SAD, FOL, FERR, FETIBC #### [facility] [address] [address] [address] Radha Brown LDL CALC NORMAL SEE BELOW Normal [facility] Comment on above: Result Comment: <100 mg/dl OPTIMAL 100 - 129 mg/dl NEAR OR ABOVE OPTIMAL 130 - 159 mg/dl BORDERLINE HIGH 160 - 189 mg/dl HIGH >190 mg/dl VERY HIGH Performed By: #### P SAD, FOL, FERR, FETIBC #### [facility] [address] [address] [address] Radha Brown Triglyceride [Mass/Vol] 165 mg/dL Critically high <=150 [facility] Comment on above: Performed By: #### P SAD, FOL, FERR, FETIBC #### [facility] [address] [address] [address] Radha Brown VLDL CALC 33.0 mg/dL Normal [facility] Comment on above: Performed By: #### P SAD, FOL, FERR, FETIBC #### [facility] [address] [address] [address] Radha Brown MICROALBUMIN, RAND URon 07-19 mALB <1.3 Normal <=30.0 [facility] Comment on above: Performed By: #### M ALBR #### [facility] [address] [place] [address] Dr. Radha Brown PROF CHEM 8 (BAS METB)on Anion gap [Moles/Vol] 9.1 mmol/L Normal [facility] Comment on above: Performed By: #### P SAD, FOL, FERR, FETIBC #### [facility] [address] [address] [address] Radha Brown Calcium [Mass/Vol] 8.6 mg/dL Normal 8.5-10.1 [facility] Comment on above: Performed By: #### P SAD, FOL, FERR, FETIBC #### [facility] [address] [address] [address] Radha Brown Chloride [Moles/Vol] 106 mmol/L Normal 98-107 [facility] Comment on above: Performed By: #### P SAD, FOL, FERR, FETIBC #### [facility] [address] [place] [address] Dr. Radha Brown CO2 [Moles/Vol] 27.1 mmol/L Normal 21.0-32.0 [facility] Comment on above: Performed By: #### P SAD, FOL, FERR, FETIBC #### [facility] [address] [place] [address] Dr. Radha Brown Creatinine [Mass/Vol] 1.19 mg/dL Normal 0.70-1.30 [facility] Comment on above: Performed By: #### P SAD, FOL, FERR, FETIBC #### [facility] [address] [place] [address] Dr. Radha Brown EGFR-AF [place] >60 Normal >=60 [facility] Comment on above: Performed By: #### P SAD, FOL, FERR, FETIBC #### [facility] [address] [place] [address] Dr. Radha Brown EGFR-NON AF [place] 59 mL/min/1.73m2 Critically low >=60 [facility] Comment on above: Performed By: #### P SAD, FOL, FERR, FETIBC #### [facility] [address] [place] [address] Dr. Radha Brown Glucose [Mass/Vol] 137 mg/dL Critically high 74-106 [facility] Comment on above: Performed By: #### P SAD, FOL, FERR, FETIBC #### [facility] [address] [place] [address] Dr. Radha Brown Potassium [Moles/Vol] 4.2 mmol/L Normal 3.5-5.1 [facility] Comment on above: Performed By: #### P SAD, FOL, FERR, FETIBC #### [facility] [address] [place] [address] Dr. Radha Brown Sodium [Moles/Vol] 138 mmol/L Normal 136-145 [facility] Comment on above: Performed By: #### P SAD, FOL, FERR, FETIBC #### [facility] [address] [address] [address] Radha Brown Urea nitrogen [Mass/Vol] 22.0 mg/dL Critically high 7.0-18 .0 [facility] Comment on above: Performed By: #### P ALANA ORDAZ FERR, FETIBC #### [facility] [address] [address] [address] Radha Brown Urea nitrogen/Creatinine [Mass ratio] 18.5 mg/mg Normal [facility] Comment on above: Performed By: #### P ORLIN FOL, FERR, FETIBC #### [facility] [address] [address] [address] Radha Brown GLYCOHEMOGLOBIN A1Con 2021 ADA RECOMMENDATION SEE BELOW Normal [facility] Comment on above: Result Comment: ADA RECOMMENDED LIMIT 4.0 - 6.0 ADA THERAPEUTIC TARGET < 7.0 ACTION SUGGESTED > 7.0 Performed By: #### A 1C #### [facility] [address] [place] [address] Dr. Radha Brown Glucose [Mass/Vol] 154 mg/dL Normal [facility] Comment on above: Performed By: #### A 1C #### [facility] [address] [place] [address] Dr. Radha Brown HbA1c (Bld) [Mass fraction] 7.0 % Critically high 4.5-6.2 [facility] Comment on above: Performed By: #### A 1C #### [facility] [address] [place] [address] Dr. Radha Brown Vital Signs Date Time Vital Sign Value Performing Clinician Facility 04-16-2025 13:34-0400 Body height 175.26 cm MiArch DO Work Phone: [facility] 04-16-2025 13:34-0400 Body mass index (BMI) [Ratio] 27.6 kg/m2 Nico Contapps DO Work Phone: [facility] 04-16-2025 13:34-0400 Body weight 84.93 kg Nico Contapps DO Work Phone: [facility] 04-16-2025 13:34-0400 Diastolic blood pressure 52 mm[Hg] Nico Ball DO Work Phone: [facility] 04-16-2025 13:34-0400 Heart rate 88 /min Nico Ball DO Work Phone: [facility] 04-16-2025 13:34-0400 Respiratory rate 12 /min Nico Ball DO Work Phone: [facility] 04-16-2025 13:34-0400 Systolic blood pressure 101 mm[Hg] Nico Ball DO Work Phone: [facility] 03-24-2025 11:15-0400 Body height 175.26 cm Nico Ball DO Work Phone: [facility] 03-24-2025 11:15-0400 Body mass index (BMI) [Ratio] 28 kg/m2 Nico Ball DO Work Phone: [facility] 03-24-2025 11:15-0400 Body weight 85.95 kg Nico Ball DO Work Phone: [facility] 03-24-2025 11:15-0400 Diastolic blood pressure 62 mm[Hg] Nico Ball DO Work Phone: [facility] 03-24-2025 11:15-0400 Heart rate 58 /min Nico Ball DO Work Phone: [facility] 03-24-2025 11:15-0400 Respiratory rate 18 /min Nico Ball DO Work Phone: [facility] 03-24-2025 11:15-0400 Systolic blood pressure 96 mm[Hg] Nico Ball DO Work Phone: [facility] 12-10-2024 14:34-0400 Body mass index (BMI) [Ratio] 29.46 kg/m2 ANATOLY Bartlett MD Work Phone: [facility] 12-10-2024 14:34-0400 Body temperature 96.49 [degF] ANATOLY Bartlett MD Work Phone: [facility] 12-10-2024 14:34-0400 Body weight 91.8 kg ANATOLY Bartlett MD Work Phone: [facility] 12-10-2024 14:34-0400 Diastolic blood pressure 69 mm[Hg] ANATOLY Bartlett MD Work Phone: [facility] 12-10-2024 14:34-0400 Heart rate 60 /min ANATOLY Bartlett MD Work Phone: [facility] 12-10-2024 14:34-0400 Respiratory rate 18 /min ANATOLY Bartlett MD Work Phone: [facility] 12-10-2024 14:34-0400 SaO2% (BldA) [Mass fraction] 97 % ANATOLY Bartlett MD Work Phone: [facility] 12-10-2024 14:34-0400 Systolic blood pressure 112 mm[Hg] ANATOLY Bartlett MD Work Phone: [facility] 11-21-2024 09:57-0500 Body height 175.26 cm [facility] 11-21-2024 09:57-0500 Body mass index (BMI) [Ratio] 29.9 kg/m2 [facility] 11-21-2024 09:57-0500 Body weight 92.13 kg [facility] 11-21-2024 09:57-0500 Diastolic blood pressure 70 mm[Hg] [facility] 11-21-2024 09:57-0500 Heart rate 65 /min [facility] 11-21-2024 09:57-0500 Respiratory rate 14 /min [facility] 11-21-2024 09:57-0500 SaO2% (BldA) [Mass fraction] 95 % [facility] 11-21-2024 09:57-0500 Systolic blood pressure 124 mm[Hg] [facility] 08-09-2024 09:14-0500 Body mass index (BMI) [Ratio] 30.81 kg/m2 ANATOLY Bartlett MD Work Phone: [facility] 08-09-2024 09:14-0500 Body temperature 97.39 [degF] ANATOLY Barteltt MD Work Phone: [facility] 08-09-2024 09:14-0500 Body weight 96 kg ANATOLY Bartlett MD Work Phone: [facility] 08-09-2024 09:14-0500 Diastolic blood pressure 62 mm[Hg] ANATOLY Bartlett MD Work Phone: [facility] 08-09-2024 09:14-0500 Heart rate 70 /min ANATOLY Bartlett MD Work Phone: [facility] 08-09-2024 09:14-0500 Respiratory rate 16 /min ANATOLY Bartlett MD Work Phone: [facility] 08-09-2024 09:14-0500 SaO2% (BldA) [Mass fraction] 97 % ANATOLY Bartlett MD Work Phone: [facility] 08-09-2024 09:14-0500 Systolic blood pressure 105 mm[Hg] ANATOLY Bartlett MD Work Phone: [facility] 07-30-2024 11:20-0500 Body height 175.26 cm [facility] 07-30-2024 11:20-0500 Body mass index (BMI) [Ratio] 31.3 kg/m2 [facility] 07-30-2024 11:20-0500 Body weight 96.27 kg [facility] 07-30-2024 11:20-0500 Diastolic blood pressure 70 mm[Hg] [facility] 07-30-2024 11:20-0500 Heart rate 62 /min [facility] 07-30-2024 11:20-0500 Respiratory rate 12 /min [facility] 07-30-2024 11:20-0500 Systolic blood pressure 111 mm[Hg] [facility] 03-27-2024 11:06-0400 Body height 175.26 cm [facility] 03-27-2024 11:06-0400 Body mass index (BMI) [Ratio] 32.3 kg/m2 [facility] 03-27-2024 11:06-0400 Body weight 99.33 kg [facility] 03-27-2024 11:06-0400 Diastolic blood pressure 64 mm[Hg] [facility] 03-27-2024 11:06-0400 Heart rate 72 /min [facility] 03-27-2024 11:06-0400 Respiratory rate 20 /min [facility] 03-27-2024 11:06-0400 Systolic blood pressure 98 mm[Hg] [facility] 02-15-2024 09:44-0400 Body mass index (BMI) [Ratio] 31.83 kg/m2 ANATOLY Bartlett MD Work Phone: [facility] 02-15-2024 09:44-0400 Body temperature 97.3 [degF] ANATOLY Bartlett MD Work Phone: [facility] 02-15-2024 09:44-0400 Body weight 99.2 kg ANATOLY Bartlett MD Work Phone: [facility] 02-15-2024 09:44-0400 Diastolic blood pressure 69 mm[Hg] ANATOLY Bartlett MD Work Phone: [facility] 02-15-2024 09:44-0400 Heart rate 66 /min ANATOLY Bartlett MD Work Phone: [facility] 02-15-2024 09:44-0400 Respiratory rate 18 /min ANATOLY Bartlett MD Work Phone: [facility] 02-15-2024 09:44-0400 Systolic blood pressure 109 mm[Hg] ANATOLY Bartlett MD Work Phone: [facility] 08-17-2023 10:03-0500 Body temperature 96.91 [degF] ANATOLY Bartlett MD Work Phone: [facility] 08-17-2023 10:03-0500 Body weight 104.78 kg ANATOLY Bartlett MD Work Phone: [facility] 08-17-2023 10:03-0500 Diastolic blood pressure 75 mm[Hg] ANATOLY Bartlett MD Work Phone: [facility] 08-17-2023 10:03-0500 Heart rate 62 /min ANATOLY Bartlett MD Work Phone: [facility] 08-17-2023 10:03-0500 Respiratory rate 16 /min ANATOLY Bartlett MD Work Phone: [facility] 08-17-2023 10:03-0500 SaO2% (BldA) [Mass fraction] 95 % ANATOLY Bartlett MD Work Phone: [facility] 08-17-2023 10:03-0500 Systolic blood pressure 156 mm[Hg] ANATOLY Bartlett MD Work Phone: [facility] 07-26-2023 11:00-0500 Body height 175.26 cm Nico Ball Other [facility] Other 07-26-2023 11:00-0500 Body mass index (BMI) [Ratio] 33.37 kg/m2 Nico Ball Other [facility] Other 07-26-2023 11:00-0500 Body weight 102.51 kg Nico Ball Other [facility] Other 07-26-2023 11:00-0500 Diastolic blood pressure 83 mm[Hg] Nico Ball Other [facility] Other 07-26-2023 11:00-0500 Respiratory rate 12 /min Nico Ball Other [facility] Other 07-26-2023 11:00-0500 Systolic blood pressure 133 mm[Hg] Nico Ball Other [facility] Other 11-29-2022 14:30-0400 Body height 175.26 cm Nico Ball Other [facility] Other 11-29-2022 14:30-0400 Body mass index (BMI) [Ratio] 34.58 kg/m2 Nico Ball Other [facility] Other 11-29-2022 14:30-0400 Body weight 106.23 kg Nico Ball Other [facility] Other 11-29-2022 14:30-0400 Diastolic blood pressure 71 mm[Hg] Nico Ball Other [facility] Other 11-29-2022 14:30-0400 Respiratory rate 12 /min Nico Ball Other [facility] Other 11-29-2022 14:30-0400 Systolic blood pressure 118 mm[Hg] Nico Ball Other [facility] Other 11-01-2022 11:22-0500 Blood Pressure Location HENRIQUESHANNAN JUAREZRY [facility] 11-01-2022 11:22-0500 Diastolic blood pressure 80 mm[Hg] HENRIQUE DIALLO [facility] 11-01-2022 11:22-0500 Heart rate 68 /min HENRIQUE DIALLO [facility] 11-01-2022 11:22-0500 Respiratory rate 16 /min HENRIQUE DIALLO [facility] 11-01-2022 11:22-0500 Systolic blood pressure 137 mm[Hg] HENRIQUE DIALLO [facility] 08-18-2022 10:22-0500 Body temperature 96.21 [degF] ANATOLY Bartlett MD Work Phone: [place] [address]-01-2022 10:22-0500 Body weight 105.23 kg ANATOLY Bratlett MD Work Phone: [facility] 08-18-2022 10:22-0500 Diastolic blood pressure 55 mm[Hg] ANATOLY Bartlett MD Work Phone: [facility] 08-18-2022 10:22-0500 Heart rate 78 /min ANATOLY Bartlett MD Work Phone: [facility] 08-18-2022 10:22-0500 Respiratory rate 18 /min ANATOLY Bartlett MD Work Phone: [facility] 08-18-2022 10:22-0500 SaO2% (BldA) [Mass fraction] 98 % ANATOLY Bartlett MD Work Phone: [facility] 08-18-2022 10:22-0500 Systolic blood pressure 125 mm[Hg] ANATOLY Bartlett MD Work Phone: [facility] 02-17-2022 09:51-0400 Body temperature 96.1 [degF] ANATOLY Bartlett MD Work Phone: [facility] 02-17-2022 09:51-0400 Body weight 100.7 kg ANATOLY Bartlett MD Work Phone: [facility] 02-17-2022 09:51-0400 Diastolic blood pressure 75 mm[Hg] ANATOLY Bartlett MD Work Phone: [facility] 02-17-2022 09:51-0400 Heart rate 66 /min ANATOLY Bartlett MD Work Phone: [facility] 02-17-2022 09:51-0400 Respiratory rate 16 /min ANATOLY Bartlett MD Work Phone: [facility] 02-17-2022 09:51-0400 SaO2% (BldA) [Mass fraction] 97 % ANATOLY Bartlett MD Work Phone: [facility] 02-17-2022 09:51-0400 Systolic blood pressure 120 mm[Hg] ANATOLY Bartlett MD Work Phone: [facility] Encounters Encounter Date Encounter Type Care Provider Facility Start: 04-16-2025 End: 04-16-2025 ambulatory Nico Lino DO Work Phone: [facility] Work Phone: Start: 04-16-2025 End: 04-16-2025 Patient encounter procedure Nico Lino DO -[facility] Work Phone: Start: 03-24-2025 End: 03-24-2025 ambulatory Nico Lino DO Work Phone: [facility] Work Phone: Start: 03-24-2025 End: 03-24-2025 Patient encounter procedure Nico Lino DO -[facility] Work Phone: Start: 03-18-2025 Non-patient / Non-visit Nico scott DO -[facility] Work Phone: Start: 12-10-2024 End: 12-10-2024 ambulatory NICO LINO Facility:[facility] Start: 12-10-2024 End: 12-10-2024 Office outpatient visit 15 minutes Ronda Bartlett MD Work Phone: [facility] Comment on above: Cancer of prostate w /med recur risk (T2b-c or Prather 7 or PSA 10-20) (HCC) (Primary Dx) Start: 11-21-2024 End: 11-21-2024 ambulatory [facility] Work Phone: Start: 11-21-2024 End: 11-21-2024 Patient encounter procedure [facility] Work Phone: Start: 08-09-2024 End: 08-09-2024 ambulatory NICO LINO Facility:[facility] Start: 08-09-2024 End: 08-09-2024 Patient encounter procedure Ronda Bartlett MD Work Phone: Radiation Oncology Comment on above: Cancer of prostate w /med recur risk (T2b-c or Asaf 7 or PSA 10-20) (HCC) (Primary Dx) Start: 07-30-2024 End: 07-30-2024 ambulatory [facility] [place] [facility] Work Phone: Start: 07-30-2024 End: 07-30-2024 Patient encounter procedure [facility] Work Phone: Start: 07-27-2024 Patient encounter procedure [facility] Start: 07-24-2024 Non-patient / Non-visit [facility] Work Phone: Start: 07-03-2024 End: 07-03-2024 Refill [...] Not Available Start: 03-27-2024 End: 03-27-2024 ambulatory [facility] [place] [facility] Work Phone: Start: 03-27-2024 End: 03-27-2024 Patient encounter procedure [facility] Work Phone: Start: 03-26-2024 Non-patient / Non-visit [facility] Work Phone: Start: 03-05-2024 End: 03-05-2024 ambulatory HENRIQUE LANDRUM [facility] Start: 03-05-2024 End: 03-05-2024 Patient encounter procedure HENRIQUE LANDRUM [facility] Start: 02-15-2024 End: 02-15-2024 Patient encounter procedure Ronda Bartlett MD Work Phone: Radiation Oncology Comment on above: Cancer of prostate w /med recur risk (T2b-c or Asaf 7 or PSA 10-20) (HCC) (Primary Dx) Start: 02-15-2024 End: 02-15-2024 ambulatory NICO LINO Facility:[facility] Start: 02-14-2024 Non-patient / Non-visit [facility] Work Phone: Start: 08-17-2023 End: 08-17-2023 Patient encounter procedure Ronda Bartlett MD Work Phone: Radiation Oncology Comment on above: Malignant neoplasm o f prostate (HCC) (Primary Dx) Start: 07-26-2023 End: 07-26-2023 ambulatory Nico Lino Other [facility] Other Start: 07-26-2023 Patient encounter procedure Nico Lino [facility] Start: 07-17-2023 End: 07-17-2023 ambulatory Nico Lino Other [facility] Other Start: 07-17-2023 Telephone encounter [facility] Start: 04-04-2023 End: 04-04-2023 ambulatory Nico Lino Other [facility] Other Start: 04-04-2023 Telephone encounter [facility] Start: 01-05-2023 End: 01-05-[address] NICO LINO Facility: Start: 11-29-2022 End: 11-30-[address] NICO LINO [facility] Other Start: 11-29-2022 Office outpatient vi sit 25 minutes [facility] Start: 11-01-2022 End: 11-01-2022 Patient encounter procedure HENRIQUEFRANK LANDRUM [facility] Start: 08-18-2022 End: 08-18-2022 ambulatory Irlanda Castro APRN.COMPRESSOR OPERATOR Work Phone: Hematology/Oncology Comment on above: Prostate cancer (HCC ) Start: 08-18-2022 End: 08-18-2022 Patient encounter procedure Irlanda Castro APRN.COMPRESSOR OPERATOR Work Phone: CHRISTOPHER Comment on above: Prostate cancer (HCC ) (Primary Dx) Start: 07-29-2022 End: 07-30-[address] NICO LINO Facility:[facility] Start: 07-25-2022 Adult health examination Nico Lino Other [facility] Other Start: 02-17-2022 End: 02-17-2022 Patient encounter procedure Ronda Bartlett MD Work Phone: Radiation Oncology Comment on above: Prostate cancer (HCC ) (Primary Dx) Start: 02-16-2022 End: 02-17-[address] NICO LINO Facility:[facility] Start: 01-16-[address] VICKI BARTLETT [facility] ility:[facility] Start: 08-05-2021 End: 08-05-2021 Subsequent hospital visit by physician Pet Ct Scan Christopher Hui Work Phone: Radiology Pet CT Start: 07-19-2021 End: 07-19-2021 Pre-procedure evaluation check Nico Lino Other [facility] Other Start: 10-24-2014 End: 10-25-2014 Patient encounter DEFAULT PHYSICIAN Facility:[facility] Procedures Date Procedure Procedure Detail Performing Clinician Start: 11-21-2024 PSA screening [facility] Provi michael Start: 07-30-2024 PSA screening [facility] Provi michael Start: 05-14-2024 Oph bmtry prtl coher intrfrmtry io lens pwr brunilda Conchita Kenny DO Work Phone: Start: 05-14-2024 End: 05-14-2024 Ophth medical xm&eval compre new pt 1/> vst Age-related nuclear cataract of both eyes Conchita Kenny DO Work Phone: Comment on above: Age-related nuclear cataract of both eyes (Primary Dx) Start: 02-14-2024 PSA screening G oTni Bartlett MD Work Phone: Start: 04-04-2023 PSA screening [facility] Provi michael Start: 07-29-2022 End: 07-29-2022 PSA screening [facility] Provider Comment on above: Performed By: #### P SAD, FOL, FERR, FETIBC #### [facility] [address] [place] [address] Dr. Radha Brown Start: 02-17-2022 Adult depression screening assessment ANATOLY Bartlett MD Work Phone: Start: 02-16-2022 End: 02-16-2022 PSA screening [facility] Provider Comment on above: Performed By: #### P SAD #### [facility] [address] [address] [address] Radha Brown Start: 07-07-2021 Brachytherapy implan t (physical object) HENRIQUE LANDRUM Start: 01-29-2021 Biopsy of prostate REVA ZAMUDIO DIALLO Start: 09-18-2017 Colonoscopy HENRIQUE Farhana CARPENTER Start: [...] DTaP,Tdap,Td Vaccine (2 - Td or Tdap) [facility] Start: 06-17-2025 End: 06-17-2025 Patient encounter procedure 06/17/2025 11:30 AM EDT Office Visit Radiation Oncology [address] [place] [address] [place] [address] Ronda Bartlett MD [address] [place] [address] [place] [address] Labs to be done at [facility] prior Radiation Oncology Comment on above: Labs to be done at [facility] prior Start: 06-12-2025 End: 09-11-2025 Testosterone [Mass/volume] in Serum or Plasma TESTOSTERONE, TOTAL BY IMMUNOASSAY (ADULT MALES, OR INDIVIDUALS ON TESTOSTERONE THERAPY) Lab Routine Cancer of prostate w/med recur risk (T2b-c or Asaf 7 or PSA 10-20) (HCC) Expected: 06/12/2025, Expires: 09/11/2025 [facility] Comment on above: Expected: 06/12/2025 , Expires: 09/11/2025 Start: 04-11-2025 End: 07-11-2025 Prostate specific Ag [Mass/volume] in Serum or Plasma PROSTATE-SPECIFIC ANTIGEN DIAGNOSTIC Lab Routine Cancer of prostate w/med recur risk (T2b-c or Prather 7 or PSA 10-20) (HCC) Expected: 04/11/2025 (Approximate), Expires: 07/11/2025 [facility] Work Phone: Comment on above: Expected: 04/11/2025 (Approximate), Expires: 07/11/2025 Start: 12-10-2024 End: 12-10-2024 Patient encounter procedure 12/10/2024 2:45 PM EDT Office Visit Radiation Oncology [address] [place] [address] [place] [address] Ronda Bartlett MD [address] [place] [address] [place] [address] 4 month follow up Radiation Oncology Comment on above: 4 month follow up Start: 12-07-2024 End: 03-08-2025 Prostate specific Ag [Mass/volume] in Serum or Plasma PROSTATE-SPECIFIC ANTIGEN DIAGNOSTIC Lab Routine Cancer of prostate w/med recur risk (T2b-c or Asaf 7 or PSA 10-20) ([facility]) Expected: 12/07/2024, Expires: 03/08/2025 [facility] Work Phone: Comment on above: Expected: 12/07/2024 , Expires: 03/08/2025 Start: 12-07-2024 End: 03-08-2025 Testosterone [Mass/volume] in Serum or Plasma TESTOSTERONE, TOTAL BY IMMUNOASSAY (ADULT MALES, OR INDIVIDUALS ON TESTOSTERONE THERAPY) Lab Routine Cancer of prostate w/med recur risk (T2b-c or Prather 7 or PSA 10-20) ([facility]) Expected: 12/07/2024, Expires: 03/08/2025 [facility] Comment on above: Expected: 12/07/2024 , Expires: 03/08/2025 Start: 09-18-2024 Advance Directive Discussion Advance Directive Discussion [facility] Start: 08-17-2024 End: 11-16-2024 Prostate specific Ag [Mass/volume] in Serum or Plasma PROSTATE-SPECIFIC ANTIGEN DIAGNOSTIC Lab Routine Cancer of prostate w/med recur risk (T2b-c or Asaf 7 or PSA 10-20) ([facility]) Expected: 08/17/2024, Expires: 11/16/2024 [facility] Work Phone: Comment on above: Expected: 08/17/2024 , Expires: 11/16/2024 Start: 08-08-2024 End: 08-08-2024 Patient encounter procedure 08/08/2024 9:15 AM EST Office Visit Radiation Oncology [address] [facility] [place] [address] Ronda Bartlett MD [address] [facility] [place] [address] 6 month rv Radiation Oncology Comment on above: 6 month rv Start: 07-31-2024 Diabetes Screening Diabetes Screenin g [facility] Start: 06-24-2024 End: 06-24-2024 Patient encounter procedure 06/24/2024 9:05 AM EDT Procedure Visit [facility] Conchita Kenny, DO [address] [place] [address] [facility] Start: 06-10-2024 End: 06-10-2024 Patient encounter procedure 06/10/2024 10:25 AM EDT Procedure Visit [facility] Conchita Kenny, DO [address] [place] [address] [facility] Start: 05-19-2024 Covid-19 Vaccine () Covid-19 Vaccine () [facility] Start: 05-19-2024 Influenza vaccination Influenza Vacc ine (#1) [facility] Start: 05-14-2024 End: 05-14-2024 Patient encounter procedure 05/14/2024 1:45 PM EDT Office Visit [facility] [address] [place] [id number] Conchita Kenny, DO [address] [place] [address] Arrived [facility] Comment on above: Arrived Start: 02-15-2024 End: 05-16-2024 Prostate specific Ag [Mass/volume] in Serum or Plasma PSA/PROSTSPECAG DIAG Lab Routine Malignant neoplasm of prostate (HCC) Expected: 02/15/2024 (Approximate), Expires: 05/16/2024 [facility] Work Phone: Comment on above: Expected: 02/15/2024 (Approximate), Expires: 05/16/2024 Start: 10-14-2023 Covid-19 Vaccine () Covid-19 Vaccine () [facility] Start: 09-18-2023 Advance Directive Discussion Advance Directive Discussion [facility] Start: 09-18-2023 Behavioral Health Screening Behavioral Health Screening [facility] Start: 08-18-2023 End: 10-18-2023 Prostate specific Ag [Mass/volume] in Serum or Plasma PSA/PROSTSPECAG DIAG Lab Routine Prostate cancer (HCC) Expected: 08/18/2023, Expires: 10/18/2023 [facility] Work Phone: Comment on above: Expected: 08/18/2023 , Expires: 10/18/2023 Start: 02-17-2023 Adult depression screening assessment DEPRESSION SCREENING [facility] Start: 09-18-2022 Advance Directive Discussion Advance Directive Discussion [facility] Start: 09-18-2022 Depression Assessment Depression Ass essment [facility] Start: 08-19-2022 End: 10-19-2022 Prostate specific Ag [Mass/volume] in Serum or Plasma PSA/PROSTSPECAG DIAG Lab Routine Prostate cancer (HCC) Expected: 08/19/2022 (Approximate), Expires: 10/19/2022 [facility] Work Phone: Comment on above: Expected: 08/19/2022 (Approximate), Expires: 10/19/2022 Start: 09-18-2021 ADVANCE DIRECTIVE DISCUSSION ADVANCE DIRECTIVE DISCUSSION [facility] Start: 09-18-2021 DEPRESSION ASSESSMENT DEPRESSION ASS ESSMENT [facility] Start: 05-03-2021 COVID-19 VACCINE (3 - Booster for Moderna series) COVID-19 VACCINE (3 - Booster for Moderna series) [facility] Start: 2020 RSV Vaccine (1 - 1-d ose 75+ series) RSV Vaccine (1 - 1-dose 75+ series) [facility] Start: 10-04-2019 Pneumococcal Vaccine : 50+ (2 of 2 - PCV) Pneumococcal Vaccine: 50+ (2 of 2 - PCV) [facility] Start: 10-04-2019 Pneumococcal Vaccine : 65+ (2 - PCV) Pneumococcal Vaccine: 65+ (2 - PCV) [facility] Start: 10-04-2019 Pneumococcal Vaccine : 65+ (2 of 2 - PCV) Pneumococcal Vaccine: 65+ (2 of 2 - PCV) [facility] Start: 10-04-2019 Pneumococcal Vaccine : 65+ Years (2 of 2 - PCV) Pneumococcal Vaccine: 65+ Years (2 of 2 - PCV) [facility] Start: 10-04-2019 PNEUMOCOCCAL: 65+ (2 - PCV) PNEUMOCOCCAL: 65+ (2 - PCV) [facility] Start: 2005 RSV Vaccine (1 - 1-d ose 60+ series) RSV Vaccine (1 - 1-dose 60+ series) [facility] Start: 1995 SHINGRIX VACCINE (1 of 2) SHINGRIX VACCINE (1 of 2) [facility] Start: 1990 DIABETES SCREEN DIABETES SCREEN [facility] Start: 1964 SHINGRIX VACCINE (1 of 2) SHINGRIX VACCINE (1 of 2) [facility] Start: 1964 Urine microalbumin profile DTAP,TDAP,TD (1 - Tdap) [facility] Start: 1963 Anxiety Screening Anxiety Screening [facility] Start: 1963 Depression Screening Depression Scre ening [facility] Start: 1963 HEPATITIS C SCREENING HEPATITIS C [facility] Start: 1963 Hepatitis C screening Hepatitis C [facility] Comprehensive metabo lic 1999 panel - Serum or Plasma [facility] Comprehensive metabo lic 1999 panel - Serum or Plasma [facility] Microalbumin [Mass/volume] in Urine [facility] XR Hip - right [address] [facility] XR Lumbar spine 2 or 3 Views [facility] Immunizations Immunization Date Immunization Notes Care Provider Fa cili 07-30-2024 influenza, high dose seasonal, preservative-free [facility] 06-14-2023 COVID-19 Vaccine Pfi zer - Documentation Purposes Only Nico Lino Other [facility] 06-14-2023 Flu Shot - Documentation Purposes Only Nico Lino Other [facility] Other 06-14-2023 influenza virus vaccine, unspecified formulation Conchita Kenny DO Work Phone: [facility] 01-05-2023 tetanus toxoid, redu doni diphtheria toxoid, and acellular pertussis vaccine, adsorbed Nico Lino Other [facility] Other 07-25-2022 influenza (aIIV4) vaccine, age 65+ yr, quadrivalent, PF (FLUAD QUAD) ANATOLY Bartlett MD Work Phone: [facility] 07-25-2022 influenza virus vaccine, split virus (incl. purified surface antigen) Nico Lino Other [facility] Other 07-25-2022 influenza virus vaccine, unspecified formulation HENRIQUE LANDRUM [facility] 07-23-2022 SARS-CoV-2 (COVID-19 ) [id number] HENRIQUE LANDRUM [facility] 05-05-2022 SARS-CoV-2 mRNA ([id number] se) vaccine HENRIQUE LANDRUM [facility] 06-10-2021 influenza nasal, unspecified formulation ANATOLY Bartlett MD Work Phone: [facility] 06-10-2021 influenza virus vaccine, split virus (incl. purified surface antigen) Nico Lino Other [facility] [employer] Other 06-10-2021 influenza virus vaccine, unspecified formulation HENRIQUESHANNAN LANDRUM [facility] 06-10-2021 Seasonal trivalent influenza vaccine, adjuvanted, preservative free ANATOLY Bartlett MD Work Phone: [facility] 12-01-2020 COVID-19 vaccine, fu ll dose (MODERNA) ANATOLY Bartlett MD Work Phone: [facility] 11-05-2020 COVID-19 vaccine, fu ll dose (MODERNA) ANATOLY Bartlett MD Work Phone: [facility] 07-09-2020 influenza virus vaccine, split virus (incl. purified surface antigen) Nico Lino Other [facility] Other 07-09-2020 influenza virus vaccine, unspecified formulation [facility] 06-04-2019 influenza nasal, unspecified formulation ANATOLY Bartlett MD Work Phone: [facility] 06-04-2019 influenza virus vaccine, unspecified formulation HENRIQUE LANDRUM [facility] 06-04-2019 Seasonal trivalent influenza vaccine, adjuvanted, preservative free ANATOLY Bartlett MD Work Phone: [facility] 10-04-2018 pneumococcal Conjuga te, unspecified formulation; Translations: [Need for prophylactic vaccination against Streptococcus pneumoniae (pneumococcus)] Nico Lino Other [facility] Other 10-04-2018 pneumococcal polysaccharide vaccine, 23 valent ANATOLY Bartlett MD Work Phone: [facility] 06-24-2015 influenza virus vaccine, split virus (incl. purified surface antigen) Nico Lino Other [facility] Other 06-24-2015 influenza virus vaccine, unspecified formulation [facility] 06-24-2015 pneumococcal conjuga te vaccine, 13 valent Nico Lino Other [facility] Payers Date Payer Category Payer Medicaid [employer] MEDICARE A DVANTAGE [id number] 2022 Medicare (Managed Care) DARBY DOUGLAS [id number] 2020 Unknown 2020 Unknown MMO MMO TRADITIO NAL [id number] 2020-Present [phone] [address] [place] [address] Indemnity [id number] 2011 Medicare MEDICARE MEDICAR E A AND B [id number] 2011-Present [phone] [place] [address] Medicare [id number] 2011 Medicare [id number] 1959 Medicare [id number] 1959 Medicare [id number] 1959 Self-pay [id number] 1959 Unknown [id number] 1945 Unknown [id number] 1945 Unknown [id number] 1945 Unknown [id number] 1945 Unknown [id number] 1945 Unknown [id number] 1945 Unknown [id number] 1945 Unknown [id number] 1945 Unknown [id number] Social History Date Type Detail Facility Start: 03-03-2021 End: 11-23-2023 Tobacco smoking status NHIS Ex-smoker [facility] Start: [birth year]-03-1957 End: 03-03-1961 History of tobacco use Current smoker [facility] Start: 03-03-2021 End: 08-17-2023 Cigarettes smoked current (pack per day) - Reported 0.5 [facility] Start: 03-03-2021 End: 08-09-2024 Tobacco use and exposure Smokeless tobacco non-user [facility] Start: 02-17-2022 End: 08-09-2024 Alcohol intake Current drinker of alcohol (finding) [facility] Start: 03-03-2021 History SDOH Alcohol Comment Socially [facility] Start: 1945 Sex Assigned At Not on file [facility] Start: 07-06-2021 End: 08-18-2022 Exposure to SARS-CoV-2 (event) Not sure [facility] Start: [birth year]-03-1957 End: 03-03-1961 History of tobacco use Cigarette Smoker [facility] Start: 08-18-2022 End: 08-17-2023 Sex Assigned At Male [facility] Adult Depression Screening Assessment 0 [facility] Start: 1945 Sex Assigned At Male F [facility] Start: 07-30-2024 End: 11-21-2024 Sex Male (finding) [facility] Tobacco smoking stat us NHIS Tobacco smoking consumption unknown [facility] Healthcare Medical Equipment Procedure Code Equipment Code Equipment Origin al Text Equipment Identifier Dates PROSTATIC BRACHYTHERAPY Ronda Bartlett MD 07/07/21 Unknown Other FDA Start: 07-07-2021 PROSTATIC BRACHYTHERAPY Ronda Bartlett MD 07/07/21 Unknown Other FDA Start: 07-07-2021 Functional Status Date Assessment Result Facility 11-01-2022 Functional Status N/A [facility] Clinical Notes 02-17-2022 to 03-24-2025 Note Date & Type Note Facility 03-24-2025 Evaluation note Diagnosis Onset Date Resolution ASHD (arteriosclerotic heart disease) acute March 24, 2025 10:41am Chronic kidney disease acute 2024 10:41am Chronic venous insufficiency acute March 24, 2025 10:41am Diabetes mellitus with hyperglycemia acute March 24, 2025 10:41am Elevated cholesterol acute March 24, 2025 10:41am Pernicious anemia acute March 10:41am Primary hypertension acute March 24, 2025 10:41am Prostate cancer acute March 24, 2025 10:41am Weight loss acute March 24 10:41am ASHD (arteriosclerotic heart disease) acute April 16, 2025 1:26pm Chronic kidney disease acute 2024 1:26pm Chronic venous insufficiency acute April 16, 2025 1:26pm Diabetes mellitus with hyperglycemia acute April 16, 2025 1:26pm Elevated cholesterol acute April 16, 2025 1:26pm Pernicious anemia acute April 162024 1:26pm Primary hypertension acute April 16, 2025 1:26pm Prostate cancer acute March 1:26pm Weight loss acute April 16 1:26pm [facility] Work Phone: [phone] Evaluation note* Diagnosis Cancer of prostate w/med recur risk (T2b-c or Prather 7 or PSA 10-20) (HCC)- Primary Malignant neoplasm of prostate documented in this encounter [facility]03-25-2025 History of Present illness Narrative* Ronda Bartlett MD - 12/10/2024 2:45 PM EDT ) C. 9/radiation Oncology - Follow Up [...] BP 112/69 Pulse 60 Temp (!) 35.8 C (96.5 F) Resp 18 Wt 91.8 kg (202 lb 6.1 oz) SpO2 97% BMI 29.46 kg/m KPS: 100 General appearance: Alert and [...] boost. Clinically doing well. PSA with minimal global climate change analyst the last 3 to 4 months. Has risen over the last12 months still likely related to testosterone recovery after prior ADT. Recommend continued close observation. If continues to climb consider PSMA PET. Signed by: Ronda Bartlett MD cc: Nico Lino ([facility]) [address] [place] [address] Portions of the above note extracted and edited from previous visit as well as active information included in the EMR. * Katiana Acharya RN - 12/10/2024 2:38 PM EDT AUA 10 Katiana Acharya RN documented [facility]25 NoteHNO ID: [id number] Author: Ronda BARTLETT MD Service: ? Author [...] boost. Clinically doing well. PSA with minimal global climate change analyst the last 3 to 4 months. Has risen over the last 12 months still likely related to testosterone recovery after prior ADT. Recommend continued close observation. If continues to climb consider PSMA PET. Signed by: Ronda Bartlett MD cc: Nico Lino ([facility]) [address] [place], [place] [id number] Portions of the above note extracted and edited from previous visit as well as active information included in the EMR.[facility]03-25-2025 Note HNO ID: [id number] Author: KATIANA ACHARYA RN Service: ? Author Type: Registered Nurse Type: Progress Notes Filed: 12/17/2024 10:57 Note Text: [facility] Evaluation note* Diagnosis Cancer of prostate w/med recur risk (T2b-c or Asaf 7 or PSA 10-20) (HCC)- Primary Malignant neoplasm of prostate documented in this encounter [facility]11-22-2024 NoteHNO ID: [id number] Author: Ronda BARTLETT MD Service: ? Author Type: Physician Type: Progress Notes Filed: 08/09/2024 09:31 Note Text: Radiation Oncology - Follow Up Note PATIENT NAME: Segun Johnson PATIENT DIAGNOSIS: Prostate adenocarcinoma, initial PSA 11.5, biopsy Prather score 4 + 3 = 7 (grade [...] ASSESSMENT/PLAN: Prostate adenocarcinoma, initial PSA 11.5, biopsy Prather score 4 + 3 = 7 (grade [...] by: Ronda Bartlett MD cc: Nico Lino ([facility]) [address] [place] [address] Dr. Storey Portions of the above note extracted and edited from previous visit as well as active information included in the EMR.[facility]11-22-2024 History of Present illness Narrative* Ronda Bartlett MD - 08/09/2024 9:19 AM EST Radiation Oncology - Follow Up Note PATIENT NAME: Segun Johnson PATIENT DIAGNOSIS: Prostate adenocarcinoma, initial PSA 11.5, biopsy Prather score 4 + 3 = 7 (grade [...] ASSESSMENT/PLAN: Prostate adenocarcinoma, initial PSA 11.5, biopsy Prather score 4 + 3 = 7 (grade [...] by: Ronda Bartlett MD cc: Nico Lino ([facility]) [address] [place], [place] [id number] Dr. Storey Portions of the above note extracted and edited from previous visit as well as active information included in the EMR. documented in [facility] Nurse Note* Jillian Waddell LPN - 08/09/2024 9:15 AM EST AUA= 8 [facility]11-22-2024 Nurse Note* Jillian Waddell LPN - 08/09/2024 9:15 AM EST AUA= 8 documented in this encounterZ[facility] History of Present illness Narrative* Conchita [...] History: Diagnosis Date ASHD (arteriosclerotic heart disease) ([facility]/HCC) Cataract Diabetes mellitus with hyperglycemia ([facility]/HCC) Dry eyes Elevated cholesterol ([facility]/HCC) CATHY (generalized anxiety disorder) ([facility]/HCC) Hypertension ([facility]/HCC) Pernicious anemia Prostate cancer ([facility]/HCC) 2021 s/p Hormone tx, CTx, external beam [...] @ 2:06 PM Additional Tests Keratometry K1 [place] K2 [place] Right 45.5 151 46.5 61 Left 45.75 [...] Normal Normal Refraction Wearing Rx Sphere Cylinder [place] Add Right -4.75 +0.00 180 +2.50 Left -5.75 -0.50 055 +2.50 Manifest Refraction Sphere Cylinder [place] Right -4.25 -1.25 110 Left -6.00 -1.00 055 Final Rx Sphere Cylinder [place] Dist [place] Right -4.25 -0.75 110 20/40 [...] different lens options were explained including the yxg-eh-paoxiw fees for any upgrades. Intraocular lens (IOL) [...] and OD - 06/24. documented [facility] encounter[id number] Evaluation note* Diagnosis Cancer of prostate w/med recur risk (T2b-c or Asaf 7 or PSA 10-20) (HCC)- Primary Malignant neoplasm of prostate documented in this encounter [facility]05-30-[facility] History of Present illness Narrative* Ronda [...] Ronda Bartlett MD cc: Nico Lino (Sanjeev) [address] [place] [address] Dr. Storey Portions of the above note extracted and edited from previous visit as well as active information included in the EMR. documented in this encounterZ[facility]05-[facility]24 NoteHNO ID: [id number] Author: Ronda BARTLETT MD Service: ? Author [...] ASSESSMENT/PLAN: Prostate adenocarcinoma, initial PSA 11.5, biopsy Prather score 4 + 3 = 7 (grade [...] by: Ronda Bartlett MD cc: Nico Lino ([facility]) [address] [place] [address] Dr. Storey Portions of the above note extracted and edited from previous visit as well as active information included in the EMR.[facility]05-30-2024 Nurse Note* Venus Vasques MA - 02/15/2024 9:47 AM EDT AUA=9 [facility]04-01-2024 Nurse Note* Venus Vasques MA - 02/15/2024 9:47 AM EDT AUA=9 documented in this encounterZ[facility]11-30-[facility]23 History of Present illness Narrative* Ronda Bartlett MD - 08/17/2023 10:15 AM EST Radiation Oncology - Follow Up Note PATIENT NAME: Segun Johnson PATIENT DIAGNOSIS: Prostate adenocarcinoma, initial PSA 11.5, biopsy Prather score 4 + 3 = 7 (grade [...] ASSESSMENT/PLAN: Prostate adenocarcinoma, 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 No evidence of recurrence or posttreatment problems. Plan to see patient back in 6 months with repeat PSA. Signed by: Ronda Bartlett MD cc: Nico Lino ([facility]) [address] [place] [address] Dr. Storey Portions of the above note extracted and edited from previous visit as well as active information included in the EMR. documented in this [facility]11-30-2023 Nurse Note* Katiana Acharya RN - 08/17/2023 10:07 AM EST AUA 7 Katiana Acharya, RN documented in this [facility]11-08-2023 Evaluation note* Encounter Date Diagnosis Assessment [...] CD-10 - D51.0) Continue supplement, recheck CBC [facility] 07-18-2023 Evaluation note* Encounter Date Diagnosis Assessment Notes Treatment Notes Treatment Clinical Notes Mar, Type 2 diabetes mellitus with hyperglycemia, without long-term current use of insulin (ICD-10 - E11.65) [facility] 03-14-2023 Evaluation note* Encounter Date Diagnosis [...] Pernicious anemia (ICD-10 - D51.0) B12 monthly [facility] Other 02-14-2023 Hospital Discharge instructions Patient Education [...] urethra. Follow these instructions at home: Take ykhj-cws-njthjxb and prescription medicines only as told by [...] 09/04/2006 Document Revised: 07/30/2019 Document Reviewed: 10/09/2017 [employer] Patient Education [employer]. Follow Up Care 05/03/2022 11:28:51 With:DIALLO SHEEHAN, HENRIQUE Ortega, URL Address: [address] [facility] [address] When:Within 18 Month(s) Comments:PSA [facility] 12-01-2022 History of Present illness Narrative* [...] cancer. Irlanda Castro APRN.CNP documented in this encounterZ[facility]12-[facility]-2022 History of Present illness Narrative* Ronda [...] by: Ronda Bartlett MD cc: Nico Lino ([facility]) [address] [place] [address] Dr. Storey Portions of the above note extracted and edited from previous visit as well as active information included in the EMR. documented in this encounterZ[facility]12-01-2022 Nurse Note* Katiana Acharya RN - 08/18/2022 10:30 AM EST AUA 14 Katiana Acharya RN documented in this encounterZ[facility]06-02-2022 History of Present illness Narrative* Ronda Bartlett MD - 02/17/2022 9:58 AM EDT Radiation Oncology - Follow Up Note PATIENT NAME: Seugn Johnson PATIENT DIAGNOSIS: Prostate adenocarcinoma, initial PSA 11.5, biopsy Prather score 4 + 3 = 7 (grade [...] by: Ronda Bartlett MD cc: Nico Lino ([facility]) [address] [place] [address] Dr. Storey Portions of the above note extracted and edited from previous visit as well as active information included in the EMR. documented in this encounterZ[facility]06-02-2022 Nurse Note* Katiana Acharya RN - 02/17/2022 9:54 AM EDT AUA 10 Katiana Acharya RN [facility] Future Appointments Appointment Date:03/05/2024 11:00:00 AM Scheduled Provider:HENRIQUE LANDRUM PA-C Location:[facility] Appointment Type:URO Office Visit Diagnostic Tests Pending * PSA Total 11/01/22 [facility] evaluation note* Diagnosis Prostate cancer (HCC)- Primary Malignant neoplasm of prostate documented in this encounter [facility] note* Diagnosis Prostate cancer (HCC) Malignant neoplasm of prostate documented in this encounter [facility] note* Diagnosis Prostate cancer (HCC)- Primary Malignant neoplasm of prostate documented in this encounter [facility] noteNo [employer] Other Evaluation note* Diagnosis Malignant neoplasm of prostate (HCC)- Primary Malignant neoplasm of prostate documented in this encounter [facility] note* Diagnosis Onset Date Resolution Status ASHD (arteriosclerotic heart disease) acute Chronic venous insufficiency acute Diabetes mellitus with hyperglycemia acute Elevated cholesterol acute Primary hypertension acute Prostate cancer acute [facility] Work Phone: Evaluation note* Diagnosis Age-related nuclear cataract of both eyes- Primary documented in this encounter [facility] Healthcare[facility]* Diagnosis Age-related nuclear cataract of both eyes documented in this encounter [facility] Healthcare[facility]* Diagnosis Onset Date Resolution Status Admit Date ASHD (arteriosclerotic heart disease) acute July 30 10:57am Chronic venous insufficiency acute July 30, 2024 10:57am Diabetes mellitus with hyperglycemia acute July 30 10:57am Elevated cholesterol acute 2023 10:57am Medicare annual wellness vis it, subsequent acute July 30 10:57am Primary hypertension acute 2023 10:57am Prostate cancer acute July 30, 2024 10:57am [facility] Work Phone: Evaluation note* Diagnosis Age-related nuclear cataract of both eyes- Primary documented in this encounter [facility] HealthcareEvaluation note* Diagnosis Onset Date Resolution Status Admit Date Low back pain radiating to r ight leg acute November 21, 2024 9:54am Right hip pain acute November 21, 2024 9:54am [facility] Work Phone: Evaluation note* Diagnosis Onset Date Resolution Status Admit Date ASHD (arteriosclerotic heart disease) acute March 24, 2025 1 0:41am Chronic kidney disease acute 2024 10:41am Chronic venous insufficiency acute March 24, 2025 10:41am Diabetes mellitus with hyperglycemia acute March 24, 2025 1 0:41am Elevated cholesterol acute March 24, 2025 10:41am Pernicious anemia acute March 10:41am Primary hypertension acute March 24, 2025 10:41am Prostate cancer acute March 24, 2025 10:41am Weight loss acute March 24 10:41am [facility] Work Phone: History general Narrative - Reported* [...] LAD/OM 2003 Hospitalization History SEE SURGICAL HX [facility] Other Hospital course Narrative No data available for this section [facility] Hospital Discharge instructions No data available for this section [facility] progress note No data available for this section [facility] reason for referral (narrative)No reason for referral information availableE[facility] Work Phone: Summary Purpose Family History No Family History [...] Admit Date ASHD (arteriosclerotic heart disease) No vem2023 10:57am Chronic venous insufficiency July 302023 10:57am Diabetes mellitus with hyperglycemia Nov emb2023 10:57am Elevated cholesterol July 30, 2024 10:57am Medicare annual wellness visit, subseque nt July 30, 2024 10:57am Primary hypertension July 30, 2024 10:57am Prostate cancer July 30, 2024 10:57am Chief Complaint Admit Date 4 month/Back Pain November 21, 2024 9:54 am Reason for Visit Admit Date Low back pain radiating to right leg Nov 9:54am Right hip pain November 21, 2024 9:54 am Chief Complaint Admit Date 4 mo f/u, A1C March 24, 2025 10:41 am Reason for Visit Admit Date ASHD (arteriosclerotic heart disease) Ju ly 2024 10:41am Chronic kidney disease March 24, 2025 10 :41am Chronic venous insufficiency March 24 10:41am Diabetes mellitus with hyperglycemia Mar 10:41am Elevated cholesterol March 24, 2025 10:4 1am Pernicious anemia March 24, 2025 10:41 am Primary hypertension March 24, 2025 10:4 1am Prostate cancer March 24, 2025 10:41 am Weight loss March 24, 2025 10:41 am Chief Complaint Admit Date 4 mo f/u, A1C March 24, 2025 10:41 am 3 Week F/U April 16, 2025 1:26 pm Reason for Visit Admit Date ASHD (arteriosclerotic heart disease) Ju ly 2024 10:41am Chronic kidney disease March 24, 2025 10 :41am Chronic venous insufficiency March 24 10:41am Diabetes mellitus with hyperglycemia Mar 10:41am Elevated cholesterol March 24, 2025 10:4 1am Pernicious anemia March 24, 2025 10:41 am Primary hypertension March 24, 2025 10:4 1am Prostate cancer March 24, 2025 10:41 am Weight loss March 24, 2025 10:41 am ASHD (arteriosclerotic heart disease) Ju ly 2024 1:26pm Chronic kidney disease April 16, 2025 1 :26pm Chronic venous insufficiency April 16, 2025 1:26pm Diabetes mellitus with hyperglycemia Mar 1:26pm Elevated cholesterol April 16, 2025 1:2 6pm Pernicious anemia April 16, 2025 1:26 pm Primary hypertension April 16, 2025 1:2 6pm Prostate cancer April 16, 2025 1:26 pm Weight loss April 16, 2025 1:26 pm Additional Source Comments (unrecognized sect ion and content) No Status Records FoundNo Status Records FoundNo Status Records FoundNo Status Records FoundNo Status Records Found INFORMATION SOURCE (unrecogn ized section and content) DATE CREATED AUTHOR 04/06/2018 [facility] DATE CREATED AUTHOR AUTHOR'S ORGANIZ ATION 01/09/2023 [facility] DATE CREATED AUTHOR AUTHOR'S ORGANIZ ATION 03/07/2024 [facility] DATE CREATED AUTHOR AUTHOR'S ORGANIZ ATION 05/16/2024 [facility] DATE CREATED AUTHOR AUTHOR'S ORGANIZ ATION 12/21/2024 [facility] Source Comments (unrecognize d section and content) In the event this informatio n is protected by the Federal Confidentiality of Alcohol and Drug Abuse Patient Records regulations: The Federal rules restrict any use of the information to criminally investigate or prosecute any alcohol or drug abuse patient.[facility] the event this information is protected by the Federal Confidentiality of Alcohol and Drug Abuse Patient Records regulations: The Federal rules restrict any use of the information to criminally investigate or prosecute any alcohol or drug abuse patient.[facility] the event this information is protected by the Federal Confidentiality of Alcohol and Drug Abuse Patient Records regulations: The Federal rules restrict any use of the information to criminally investigate or prosecute any alcohol or drug abuse patient.[facility] HospitalIn the event this information is protected by the Federal Confidentiality of Alcohol and Drug Abuse Patient Records regulations: The Federal rules restrict any use of the information to criminally investigate or prosecute any alcohol or drug abuse patient.[facility] HospitalIn the event this information is protected by the Federal Confidentiality of Alcohol and Drug Abuse Patient Records regulations: The Federal rules restrict any use of the information to criminally investigate or prosecute any alcohol or drug abuse patient.[facility] HospitalIn the event this information is protected by the Federal Confidentiality of Alcohol and Drug Abuse Patient Records regulations: The Federal rules restrict any use of the information to criminally investigate or prosecute any alcohol or drug abuse patient.[facility] HospitalIn the event this information is protected by the Federal Confidentiality of Alcohol and Drug Abuse Patient Records regulations: The Federal rules restrict any use of the information to criminally investigate or prosecute any alcohol or drug abuse patient.[facility] HospitalIn the event this information is protected by the Federal Confidentiality of Alcohol and Drug Abuse Patient Records regulations: The Federal rules restrict any use of the information to criminally investigate or prosecute any alcohol or drug abuse patient.[facility] Reason for Visit (unrecogniz ed section [...] Provider Active Sta rt: March 18, 2025 Team Status: Inactive Member Role Status Dates Nico Lino DO Primary Care Provider Active Start: March 24, 2025 End: March 24, 2025 Nico Lino DO Attending Provider Active Sta rt: March 24, 2025 End: March 24, 2025 Team Status: Inactive Member Role Status Dates Nico Lino DO Primary Care Provide r, Attending Provider Active Start: November 21, 2024 End: November 21, 2024 Sales Service Representative Relationship Specialty Start Date End Date Nico Lino DO [address] [place] [address] PCP - General Internal Medicine 02/10/21 Joseph Vasques Jr. [address] [facility] [place] [phone] Urology 02/10/21 Sales Service Representative Relationship Specialty Start Date End Date Holland Nico Ortega, DO [address] [place] [facility] [address] PCP - General Internal Medicine 02/10/21 Joseph Vasques Jr. [address] [place] [address] Urology 02/10/21 Sales Service Representative Relationship Specialty Start Date End Date Nico Lino, DO [address] [place] [facility] [place] [address] PCP - General Internal Medicine 02/10/21 Joseph Vasques Jr. [address] [place] [phone] Urology 02/10/21 Sales Service Representative Relationship Specialty Start Date End Date Nico Lino DO [address] [place] [address] PCP - General Internal Medicine 02/10/21 Joseph Vasques Jr. [address] [place] [phone] Urology 02/10/21 Sales Service Representative Relationship Specialty Start Date End Date Nico Lino DO [address] [place] [address] PCP - General Internal Medicine 02/10/21 Joseph Vasques Jr. [address] [place] [phone] Urology 02/10/21 Team Status: Active Member Role Status Dates Nico Ball , DO Primary Care Provider Active Start: February [...] March 27, 2024 End: March 27, 2024 Sales Service Representative Relationship Specialty Start Date End Date Nico Lino DO [address] [place] [address] PCP - General Internal Medicine 02/10/21 Joseph Vasques Jr. [address] [place] [address] Urology 02/10/21 Sales Service Representative Relationship Specialty Start Date End Date Nico Lino MD [address] [place] [address] PCP - General Internal Medicine 05/14/24 Sales Service Representative Relationship Specialty Start Date End Date Nico Lino MD [address] [place] [phone] PCP - General Internal Medicine 05/14/24 Team Status: Active Member Role Status Dates Nico Lino DO Primary Care Provide r, Attending Provider Active Start: July 24, 2024 Team Status: Inactive Member Role Status Dates Nico Lino DO Primary Care Provide r, Attending Provider Active Start: July 30, 2024 End: July 30, 2024 Sales Service Representative Relationship Specialty Start Date End Date Nico Lino DO [address] [place] [address] PCP - General Internal Medicine 02/10/21 Joseph Vasques Jr. [address] [place] [address] Urology 02/10/21 Sales Service Representative Relationship Specialty Start Date End Date Nico Lino MD [address] [facility] [place] [phone] PCP - General Internal Medicine 05/14/24 Team Status: Inactive Member Role Status Dates Nico Lino DO Primary Care Provider Active Start: April 16, 2025 End: April 16, 2025 Nico Lino DO Attending Provider Active Sta rt: April 16, 2025 End: April 16, 2025 Goals (unrecognized section and content) Goals may [...] BE BASED ON THE PRIMARY CLINICAL RECORDS. [employer] provides no warranty or guarantee of the accuracy or completeness of information in this document.
[2025-05-27] MEDS: LIDOCAINE HCL 1% 100 MG/10 ML MDV INJ (08:46)
== END 2025-05-27 09:47 | disposition home or self-care (01) ==
PROVIDERS: Emergency Provider Emergency Medicine; PCP Internal Medicine
DX: S41.112A Laceration without foreign body of left upper arm, initial encounter (principal); W25.XXXA Contact with sharp glass, initial encounter
CPT/HCPCS: 12002; 73060; 99284

== ENCOUNTER 2025-06-02 08:23 | Outpatient (OUT) | payer MEDICARE, SELFPAY ==
--- OUTSIDE RECORDS SUMMARY | 2025-06-02 08:33 | XMS_ITS | CCD ---
Author Organization [facility] Care Team Providers Care Puppy Walker Name Role Phone PHYSICIAN, DEFAULT Unavailable Unavailable [...] Care Provider NICO LINO Primary Care Unavailable Yuan BARTLETT Attending Unavailable NICO LINO Primary Care Unavailable ENGELER G TONI Referring Unavailable ENGELER G TONI Attending Unavailable NICO LINO Primary Care Unavailable ENGELERYuan Referring Unavailable ENGRUSTYR G TONI Attending Unavailable Nico Lino DO Primary Care Provider Nico Lino DO Attending Provider Allergies Allergy Classification Reported Allergen(s) Allergy Type Date of Onset Reaction(s) Facility (1 source) Shellfish Containing Products Drug allergy (disorder) 9 [facility] Repository (3 sources) Seafood; Translations: [Seafood] Drug allergy Itching [facility] (1 source) patient allergy list reviewed by nurse or physicia Propensity to adverse reactions Comment:Done [place] Other (1 source) Shrimp product; Translations: [Shrimp] Propensity to adverse reactions (disorder) [facility] Repository (1 source) No Known Medication Allergies; Translations: [No Known Medication Allergies] Propensity to adverse reactions (disorder) [facility] Repository Medications Current Medications Medication Drug Class(es) Dates Sig (Normalized) Sig (Original) aspirin 81 mg delayed release oral tablet (20 sources) Platelet Aggregation Inhibitor, Nonsteroidal Anti-inflammatory Drug [...] Ordered cyanocobalamin, vitamin B-12, (VITAMIN B12 ORAL) (3 sources) cyanocobalamin, vitamin B-12, (VITAMIN B12 ORAL) Take by mouth. Active cyanocobalamin, vitamin B-12, (VITAMIN B12 ORAL) Take by mouth. 0 Active folic acid 1 mg oral tablet (19 sources) Start: 08-19-2024 take 1 tablet by [...] 2024 8:31am glipiZIDE 5 mg oral tablet (5 sources) Sulfonylurea Start: 03-24-2025 End: 04-16-2025 take [...] .ROUTE .COMPLEX 90 January 19, 2025 3:03pm On Hold: hypotension TAKE 1 TABLET BY MOUTH EVERY DAY [...] Active Comment on above: Take by mouth. ofloxacin 3 mg/ml ophthalmic solution (3 sources) [...] pantoprazole 40 mg delayed release oral tablet (4 sources) Proton Pump Inhibitor Start: 03-25-2025 End: 04-16-2025 Pantoprazole 40 mg tablet,delayed release (DR/EC) Active 40 MG PO Daily 90 90 April 16, 2025 1:52pm take on [...] Active propylene glycol 6 mg/ml ophthalmic solution (5 sources) Start: 07-30-2024 Propylene Glyc ol (Systane [...] Daily, # 30 cap(s), Refills(s) 11, Pharmacy: [id number], 173, cm, 11/02/21 11:02:00 [...] Provider) Comment on above: Take by mouth. celecoxib 200 mg oral capsule (8 sources) Nonsteroidal Anti-inflammatory Drug Start: 11-22-19 25 End: 05-28-20 take 1 capsule by mouth once daily Celecoxib 200 mg capsule Discontinued 200 MG PO Daily November 21, 2024 11:28am May 28, 2025 2:16pm cholecalciferol, vitamin D3, (VITAMIN D3 ORAL) (1 source) End: 02-18-20 cholecalciferol, vitamin D3, (VITAMIN D3 ORAL) Take by mouth. 0 02/17/2022 Discontinued (Discontinued by another Health Care Provider) Comment on above: Take by mouth. glimepiride 4 mg oral tablet (20 sources) Sulfonylurea Start: 07-20-20 24 End: 04-16-20 take 1 tablet by mouth before breakfast [...] Active Comment on above: Inject intramuscular ly. metFORMIN hydrochloride 1000 mg oral tablet (20 sources) Biguanide Start: 04-17-20 24 End: 05-28-20 25 take 1 tablet by mouth twice daily at dinner Metformin 1,000 mg tablet Discontinued 0 .ROUTE .COMPLEX 180 April 17, 2024 12:50pm May 28, 2025 2:14pm TAKE 1 TABLET BY MOUTH 2 TIMES [...] twice daily. sertraline 100 mg oral tablet (20 sources) Serotonin Reuptake Inhibitor Start: End: take 1 tablet by mouth at bedtime [...] to other specified organisms] Episodic Anxiety disorders (12 sources) Generalized anxiety disorder; Translations: [Generalized anxiety [...] Onset: 05-14-2024 07-02-2024 Chronic Chronic kidney disease (10 sources) Chronic kidney disease; Translations: [Chronic kidney [...] [Anemia, unspecified] Episodic Deficiency and other anemia (17 sources) Pernicious anemia; Translations: [Vitamin B12 deficiency anemia due to intrinsic factor deficiency] 11-23-2023 Episodic Deficiency and other anemia (2 sources) Vitamin B12 deficiency anemia due to intrinsic factor deficiency Episodic Deficiency and other anemia (1 source) Folate deficiency anemia, unspecified Episodic Deficiency and other anemia (6 sources) Nutritional anemia; Translations: [Folate deficiency anemia, [...] not elsewhere classified, initial encounter; Translations: [[facility] OTH SHRP OB NOT ELSW CLASS INI] [...] sources) H/O: high risk medication; Translations: [Other prison (current) drug therapy] Episodic Other aftercare (1 source) Other prison (current) drug therapy; Translations: [OTH FLOW COORDINATOR CURRENT DRUG THERAPY] Onset: 01-09-2023 Episodic Other aftercare (1 source) longterm (current) use of aspirin; Translations: [FLOW COORDINATOR CURRENT USE OF ASPIRIN] Onset: 01-09-2023 Episodic Other aftercare (1 source) 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; Translations: [FLOW COORDINATOR USE ORAL HYPOGLYCEMIC DX] Onset: 01-09-2023 Episodic Other aftercare (1 source) Long-term current use of drug therapy; Translations: [Other prison (current) drug therapy] Episodic Other diseases of kidney and ureters (1 source) Urinary tract obstruction; Translations: [Other obstructive and reflux uropathy] Onset: 11-01-2022 Episodic Other diseases of veins and lymphatics (17 sources) Peripheral venous insufficiency; Translations: [Venous insufficiency (chronic) (peripheral)] 11-23-2023 Episodic Other diseases of veins and lymphatics (4 sources) Venous insufficiency (chronic) (peripheral); Translations: [Venous (peripheral) insufficiency, unspecified] Episodic Other injuries and conditions due to external causes (1 source) History of fall; Translations: [History of falling] Episodic Other non-traumatic joint disorders (4 sources) Hip pain; Translations: [Pain in right [...] Chronic Other nutritional; endocrine; and metabolic disorders (9 sources) Weight decreased; Translations: [Abnormal weight loss] 03-24-2025 Episodic Other upper respiratory disease (5 sources) Allergic rhinitis due to pollen; Translations: [Allergic rhinitis due to pollen] Chronic Spondylosis; intervertebral disc disorders; other back problems (3 sources) Lumbar spondylosis; Translations: [Spondylosis without myelopathy or radiculopathy, lumbar region] 11-21-2024 Chronic Spondylosis; intervertebral disc disorders; other back problems (7 sources) Low back pain; Translations: [Low back [...] (Bld) [#/Vol] 0.2 10 3/uL High 0.0-0.1 [facility] Basophils/100 WBC Auto (Bld) Ordered By: Nico Lino on 03-24-2025 Basophils/100 WBC (Bld) 1.6 % 0.2-2.0 [facility] Eosinophils/100 WBC Auto (Bl d)Ordered By: Nico Lino on 03-24-2025 Eosinophils/100 WBC (Bld) 5.4 % 0.9-7.0 [facility] Erythrocyte distribution wid th Auto (RBC) [Ratio]Ordered By: Nico Lino on 03-24-2025 Erythrocyte distribution width (RBC) [Ratio] 15.3 % High 11.0-15.0 [facility] Estimated glomerular filtrat ion rate (GFR) non- AmericanOrdered By: Nico Lino on 03-24-2025 GFR/1.73 sq M.predicted among non-blacks MDRD (S/P/Bld) [Vol rate/Area] 38 mL/min/{1.73_m2} Low >=60 mL/min/1.73m 2 [facility] Globulin Calc (S) [Mass/Vol] Ordered By: Nico Lino on 03-24-2025 Globulin (S) [Mass/Vol] 4.4 g/dL F [facility] Hematocrit Auto (Bld) [Volum e fraction]Ordered By: Nico Lino on 03-24-2025 Hematocrit (Bld) [Volume fraction] 36.7 % Low 42.0-54.0 [facility] Hemoglobin [Mass/volume] in BloodOrdered By: Nico Lino on 03-24-2025 Hemoglobin (Bld) [Mass/Vol] 12.2 g/dL Low 14.0-18.0 [facility] Laboratory - Chemistry and C hemistry - challengeOrdered By: Nico Lino on 03-24-2025 Albumin [Mass/Vol] 3.4 g/dL 3.4-5.0 [facility] ALP [Catalytic activity/Vol] 90 U/L 46-116 [facility] ALT [Catalytic activity/Vol] 25 U/L 16-63 [facility] Amylase [Catalytic activity/Vol] 62 U/L 25-115 [facility] AST [Catalytic activity/Vol] 18 U/L 15-37 [facility] Bilirubin [Mass/Vol] 0.3 mg/dL 0.2-1.0 [facility] Calcium [Mass/Vol] 9.0 mg/dL 8.5-10.1 [facility] Chloride [Moles/Vol] 107 mmol/L 98-107 [facility] CO2 [Moles/Vol] 21.2 mmol/L 21.0-32.0 [facility] Creatinine [Mass/Vol] 1.75 mg/dL High 0.70-1.30 [facility] Ferritin [Mass/Vol] 174.0 ng/mL 26.0-388.0 [facility] GFR/1.73 sq M.predicted MDRD (S/P/Bld) [Vol rate/Area] 46 mL/min/{1.73_m2} Low >=60 mL/min/1.73m 2 [facility] Glucose [Mass/Vol] 108 mg/dL High 74-106 [facility] Lipase [Catalytic activity/Vol] 46.0 U/L 16.0-77.0 [facility] Potassium [Moles/Vol] 4.7 mmol/L 3.5-5.1 [facility] Protein [Mass/Vol] 7.8 g/dL 6.4-8.2 [facility] Sodium [Moles/Vol] 141 mmol/L 136-145 [facility] Urea nitrogen [Mass/Vol] 34.0 mg/dL High 7.0-18.0 [facility] Urea nitrogen/Creatinine [Mass ratio] 19.4 mg/mg [facility] Laboratory - Hematology and Cell countsOrdered By: Nico Lino on 03-24-2025 Immature granulocytes/100 WBC (Bld) 0.2 % 0.0-0.5 [facility] Leukocytes [#/volume] correc opal for nucleated erythrocytes in Blood by Automated counOrdered By: Nico Lino on 03-24-2025 WBC corrected for nucl RBC Auto (Bld) [#/Vol] 10.0 10 3/uL 4.0-11.0 [facility] Lymphocytes Auto (Bld) [#/Vo l]Ordered By: Nico Lino on 03-24-2025 Lymphocytes (Bld) [#/Vol] 1.8 10 3/uL 1.2-3.8 [facility] Lymphocytes/100 WBC Auto (Bl d)Ordered By: Nico Lino on 03-24-2025 Lymphocytes/100 WBC (Bld) 17.5 % Low 20.5-60.0 [facility] MCH Auto (RBC) [Entitic mass ]Ordered By: Nico Lino on 03-24-2025 MCH (RBC) [Entitic mass] 30.0 pg 25.9-34.0 [facility] MCHC Auto (RBC) [Mass/Vol]Or dered By: Nico Lino on 03-24-2025 MCHC (RBC) [Mass/Vol] 33.2 g/dL 29.9-35.2 [facility] MCV Auto (RBC) [Entitic vol] Ordered By: Nico Lino on 03-24-2025 MCV (RBC) [Entitic vol] 90.4 fL 80.0-94.0 [facility] Monocytes Auto (Bld) [#/Vol] Ordered By: Nico Lino on 03-24-2025 Monocytes (Bld) [#/Vol] 0.8 10 3/uL 0.3-0.8 [facility] Monocytes/100 WBC Auto (Bld) Ordered By: Nico Lino on 03-24-2025 Monocytes/100 WBC (Bld) 7.6 % 1.7-12.0 [facility] Neutrophils Auto (Bld) [#/Vo l]Ordered By: Nico Lino on 03-24-2025 Neutrophils (Bld) [#/Vol] 6.8 10 3/uL High 1.4-6.5 [facility] Neutrophils/100 WBC Auto (Bl d)Ordered By: Nico Lino on 03-24-2025 Neutrophils/100 WBC (Bld) 67.7 % 43.0-75.0 [facility] No Panel InformationOrdered By: Nico Lino on 03-24-2025 Eosinophils # (Auto) 0.5 10 3/uL 0.0-0.7 [facility] Folate 25.80 ng/mL 8.60-58.90 [facility] Immature Granulocyte # (Auto) 0.02 10 3/uL 0.00-0.03 [facility] Vitamin B12 Level >2000 pg/mL Abnormal 232-1245 [facility] Comment on above: Performed at: [address] [id number] Director: Rocco Lopez PhD, Phone: [phone] Platelet mean volume Auto (B ld) [Entitic vol]Ordered By: Nico Lino on 03-24-2025 Platelet mean volume (Bld) [Entitic vol] 11.2 fL 9.5-13.5 [facility] Platelets Auto (Bld) [#/Vol] Ordered By: Nico Lino on 03-24-2025 Platelets (Bld) [#/Vol] 398 10 3/uL 150-450 [facility] RBC Auto (Bld) [#/Vol]Ordere d By: Nico Lino on 03-24-2025 RBC (Bld) [#/Vol] 4.06 10 6/uL Low 4.70-6.10 [facility] Serum or plasma albumin/glob ulin mass ratioOrdered By: Nico Lino on 03-24-2025 Albumin/Globulin [Mass ratio] 0.8 {ratio} [facility] Serum or plasma anion gap de terminationOrdered By: Nico Lino on 03-24-2025 Anion gap [Moles/Vol] 17.5 mmol/L [facility] Glucose mean value [Mass/vol ume] in Blood Estimated from glycated hemoglobinOrdered By: Nico Lino on 03-18-2025 Average glucose Estimated from glycated hemoglobin (Bld) [Mass/Vol] 163 mg/dL [facility] Hemoglobin A1c percentageOrd ered By: Nico Lino on 03-18-2025 HbA1c (Bld) [Mass fraction] 7.3 % High 4.5-6.2 [facility] Comment on above: ADA RECOMMENDED LIMI T 4.0 - 6.0ADA THERAPEUTIC TARGET < 7.0ACTION SUGGESTED> 7.0 CNOVon 12-10-2024 CNOV Office Visit (RADTSA) ---- SEGUN JOHNSON ([id number]) 1945 M Date Time Provider Department 12/10/24 2:45 PM Yuan BARTLETT During your visit today, we recorded [...] ASSESSMENT/PLAN: Prostate adenocarcinoma, 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 Clinically doing well. PSA with minimal change management analyst the last 3 to 4 months. Has risen over the last 12 months still likely related to testosterone recovery after prior ADT. Recommend continued close observation. If continues to climb consider PSMA PET. Signed by: Yuan Bartlett MD cc: Nico Lino ([facility]) [address] [place] [address] Portions of the above note extracted and edited from previous visit as well as active information included in the EMR. Allergies As of Date: 12/10/2024 (No Known Allergies) Date Reviewed: 12/10/2024 Reviewed by: Katiana Acharya RN - Fully Assessed Reason for Visit: Prostate Cancer [590] Primary Visit Diagnosis:Cancer of prostate w/med recur risk (T2b-c or [place] 7 or PSA 10-20) ([facility]) [C61] Order(s):PSA (OUTSIDE) [[id number]] Order #: [id number] PROSTATE-SPECIFIC ANTIGEN DIAGNOSTIC [SQPSA] Order #: [id number] FUTURE TESTOSTERONE, TOTAL BY IMMUNOASSAY (ADULT MALES, OR INDIVIDUALS ON TESTOSTERONE THERAPY) [SQTESTO] Order #: [id number] FUTURE Prescriptions as of 12/17/2024 - folic [...] - glim (more content not included)... Normal [facility] PSA (OUTSIDE)on 11-21-2024 [facility] CNOVon 08-09-2024 CNOV Office Visit (RADTSA) ---- SEGUN JOHNSON ([id number]) 1945 M Date Time Provider Department 08/09/24 9:15 AM Yuan BARTLETT During your visit today, we recorded the following information about you: Temperature Pulse Respiration Blood pressure 97.4 degrees 70/minute 16/minute 105/62 Weight 96 kg Jillian Waddell LPN 08/09/2024 9:23 AM Signed AUA= 8 Yuan Bartlett MD 08/09/2024 9:31 AM Signed Radiation Oncology - Follow Up Note PATIENT NAME: Segun Johnson PATIENT DIAGNOSIS: Prostate adenocarcinoma, initial PSA 11.5, biopsy [place] score 4 + 3 = 7 (grade [...] ASSESSMENT/PLAN: Prostate adenocarcinoma, initial PSA 11.5, biopsy [place] score 4 + 3 = 7 (grade [...] to climb consider PSMA PET. Signed by: Yuan Bartltet MD cc: Nico Lino ([facility]) [address] [place], [place] [id number] Dr. Storey Portions of the above note extracted and edited from previous visit as well as active information included in the EMR. Referring Provider: Yuan BARTLETT [[id number]] Allergies As of Date: 08/09/2024 (No Known Allergies) Date Reviewed: 08/09/2024 Reviewed by: Jillian Waddell LPN - Fully Assessed Reason for Visit: Prostate Cancer [590] Primary Visit Diagnosis:Cancer of prostate w/med recur risk (T2b-c or [place] 7 or PSA 10-20) ([facility]) [C61] Order(s):PSA (OUTSIDE) [[id number]] Order #: [id number] PROSTATE-SPECIFIC ANTIGEN DIAGNOSTIC [SQPSA] Order #: [id number] FUTURE TESTOSTERONE, TOTAL BY IMMUNOASSAY (ADULT MALES, OR INDIVIDUALS ON TESTOSTERONE THERAPY) [SQTESTO] Order #: [id number] FUTURE Prescriptions as of 08/09/2024 - folic [...] - l (more content not included)... Normal [facility] PSA (OUTSIDE)on 07-30-2024 [facility] US Eye+Orbit - bilateralon 0 05-14-2024 Diagnosis: Cataract both eyes (OU) Testing Indication: Performed for preop measurements in the determination of an intraocular lens (IOL) for both eyes (OU) Test Reliability: Good quality both eyes (OU) Interpretation: Good measurements for intraocular lens (IOL) calculation purposes. Calculation made for both eyes (OU). [facility] Radiology Study observation (narrative) [facility] Glucose mean value [Mass/vol ume] in Blood Estimated from glycated hemoglobinon 03-26-2024 Average glucose Estimated from glycated hemoglobin (Bld) [Mass/Vol] 163 mg/dL [facility] Laboratory - Hematology and Cell countson 03-26-2024 HbA1c (Bld) [Mass fraction] 7.3 % High 4.5-6.2 [facility] Comment on above: ADA RECOMMENDED LIMI T 4.0 - 6.0ADA THERAPEUTIC TARGET < 7.0ACTION SUGGESTED> 7.0 Consultation Noteon 02-16-20 Consultation Note [id number] B#1.00TIFF Normal [facility] CNOVon 02-15-2024 CNOV Office Visit (RADTSA) ---- SEGUN JOHNSON ([id number]) 1945 M Date Time Provider Department 02/15/24 10:00 AM Yuan BARTLETTA During your visit today, we recorded the [...] by: Yuan Bartlett MD cc: Nico Lino ([facility]) [id number] Storey Portions of the above note extracted and edited from previous visit as well as active information included in the EMR. Referring Provider: Yuan BARTLETT [[id number]] Allergies As of Date: 02/15/2024 (No Known Allergies) Date Reviewed: 02/15/2024 Reviewed by: Venus Vasques MA - Fully Assessed Reason for Visit: Prostate Cancer [590] Cmt: Follow up Primary Visit Diagnosis:Cancer of prostate w/med recur risk (T2b-c or [place] 7 or PSA 10-20) ([facility]) [C61] Order(s):PSA (OUTSIDE) [[id number]] Order #: [id number] PROSTATE-SPECIFIC ANTIGEN DIAGNOSTIC [SQPSA] Order #: [id number] FUTURE Prescriptions as of 02/15/2024 - cyanocobalamin, [...] (HCC) [C61] 08/17/2022 Visit Notes: >> Layo December, MA Elsi February 15, 2024 9:47 AM Status: Signed AUA=9 Disposition: Return in about 6 months (around 08/17/2024). Follow-up and Disposition History for Encounter Date Provider Department Center 02/15/2024 [id number] BARTLETT Encounter Status:Closed by Yuan BARTLETT on 02/15/24 Normal [facility] No Panel Informationon 02-13 Prostate Specific Antigen Total 0.61 ng/mL <=4.00 [facility] PSA (OUTSIDE)on 02-14-2024 [facility] GLYCOHEMOGLOBIN A1Con 2022 ADA RECOMMENDATION SEE BELOW Normal [facility] Comment on above: Result Comment: ADA RECOMMENDED LIMIT 4.0 - 6.0 ADA THERAPEUTIC TARGET < 7.0 ACTION SUGGESTED > 7.0 Performed By: #### A 1C #### [facility] [address] [place] [address] Dr. Radha Brown Glucose [Mass/Vol] 186 mg/dL Normal [facility] Comment on above: Performed By: #### A 1C #### [facility] [address] [place] [address] Dr. Radha Brown HbA1c (Bld) [Mass fraction] 8.1 % Critically high 4.5-6.2 [facility] Comment on above: Performed By: #### A 1C #### [facility] [address] [place] [address] Dr. Radha Brown CBC AUTO DIFFon 07-29-2022 BASO # 0.1 103/ul Normal 0.0-0.1 [facility] Comment on above: Performed By: #### C BC #### [facility] [address] [place] [address] Dr. Radha Brown Basophils/100 WBC (Bld) 0.9 % Normal 0.2-2.0 [facility] Comment on above: Performed By: #### C BC #### [facility] [address] [place] [address] Dr. Radha Brown EO # 0.5 103/ul Normal 0.0-0.7 [facility] Comment on above: Performed By: #### C BC #### [facility] [address] [place] [address] Dr. Radha Brown Eosinophils/100 WBC (Bld) 5.5 % Normal 0.9-7.0 [facility] Comment on above: Performed By: #### C BC #### [facility] [address] [place] [address] Dr. Radha Brown Erythrocyte distribution width (RBC) [Ratio] 15.0 % Normal 11.0-15.0 [facility] Comment on above: Performed By: #### C BC #### [facility] [address] [place] [address] Dr. Radha Brown Hematocrit (Bld) [Volume fraction] 35.6 % Critically low 42.0-54.0 [facility] Comment on above: Performed By: #### C BC #### [facility] [address] [place] [address] Dr. Radha Brown Hemoglobin (Bld) [Mass/Vol] 11.8 g/dL Critically low 14.0-18.0 [facility] Comment on above: Performed By: #### C BC #### [facility] [address] [place] [address] Dr. Radha Brown IG # 0.05 10e3/ul Critically high 0.00-0.03 [facility] Comment on above: Performed By: #### C BC #### [facility] [address] [place] [address] Dr. Radha Brown IG % 0.5 % Normal 0.0-0.5 [facility] Comment on above: Performed By: #### C BC #### [facility] [address] [place] [address] Dr. Radha Brown LYMPH # 1.8 103/ul Normal 1.2-3.8 [facility] Comment on above: Performed By: #### C BC #### [facility] [address] [place] [address] Dr. Radha Brown Lymphocytes/100 WBC (Bld) 19.3 % Critically low 20.5-60.0 [facility] Comment on above: Performed By: #### C BC #### [facility] [address] [place] [address] Dr. Radha Brown MANUAL DIFF REQ NO Normal [facility] Comment on above: Performed By: #### C BC #### [facility] [address] [place] [address] Dr. Radha Brown MCH (RBC) [Entitic mass] 29.2 pg Normal 25.9-34.0 [facility] Comment on above: Performed By: #### C BC #### [facility] [address] [place] [address] Dr. Radha Brown MCHC (RBC) [Mass/Vol] 33.1 g/dL Normal 29.9-35.2 [facility] Comment on above: Performed By: #### C BC #### [facility] [address] [place] [address] Dr. Radha Brown MCV (RBC) [Entitic vol] 88.1 fL Normal 80.0-94.0 [facility] Comment on above: Performed By: #### C BC #### [facility] [address] [address] [address] Radha Brown MONO # 0.6 103/ul Normal 0.3-0.8 [facility] Comment on above: Performed By: #### C BC #### [facility] [address] [address] [address] Radha Brown Monocytes/100 WBC (Bld) 6.4 % Normal 1.7-12.0 [facility] Comment on above: Performed By: #### C BC #### [facility] [address] [address] [address] Radha Brown NEUT # 6.4 103/ul Normal 1.4-6.5 [facility] Comment on above: Performed By: #### C BC #### [facility] [address] [place] [address] Dr. Radha Brown Neutrophils/100 WBC (Bld) 67.4 % Normal 43.0-75.0 [facility] Comment on above: Performed By: #### C BC #### [facility] [address] [address] [address] Radha Brown Platelet mean volume (Bld) [Entitic vol] 9.2 fL Critically low 9.5-13.5 [facility] Comment on above: Performed By: #### C BC #### [facility] [address] [place] [address] Dr. Radha Brown PLT 232 103/ul Normal 150-450 [facility] Comment on above: Performed By: #### C BC #### [facility] [address] [place] [address] Dr. Radha Brown RBC 4.04 106/ul Critically low 4.70-6.10 [facility] Comment on above: Performed By: #### C BC #### [facility] [address] [address] [address] Radha Brown WBC 9.5 103/ul Normal 4.0-11.0 [facility] Comment on above: Performed By: #### C BC #### [facility] [address] [address] [address] Radha Brown FERRITINon 07-29-2022 Ferritin [Mass/Vol] 164.0 ng/mL Normal 26.0-388.0 [facility] Comment on above: Performed By: #### P SAD, FOL, FERR, FETIBC #### [facility] [address] [address] [address] Radha Brown FOLATEon 07-29-2022 FOLATE 7.60 ng/mL Critically low 8.60-58.90 [facility] Comment on above: Performed By: #### P SAD, FOL, FERR, FETIBC #### [facility] [address] [address] [address] Radha Brown GLYCOHEMOGLOBIN A1Con 2021 ADA RECOMMENDATION SEE BELOW Normal [facility] Comment on above: Result Comment: ADA RECOMMENDED LIMIT 4.0 - 6.0 ADA THERAPEUTIC TARGET < 7.0 ACTION SUGGESTED > 7.0 Performed By: #### A 1C #### [facility] [address] [place] [address] Dr. Radha Brown Glucose [Mass/Vol] 134 mg/dL Normal [facility] Comment on above: Performed By: #### A 1C #### [facility] [address] [address] [address] Radha Brown HbA1c (Bld) [Mass fraction] 6.3 % Critically high 4.5-6.2 [facility] Comment on above: Performed By: #### A 1C #### [facility] [address] [address] [address] Radha Brown IRON AND TIBCon 07-29-2022 % SATURATION 22.1 % Normal [facility] Comment on above: Performed By: #### P SAD, FOL, FERR, FETIBC #### [facility] [address] [address] [address] Radha Brown Iron [Mass/Vol] 78.0 ug/dL Normal 65.0-175.0 [facility] Comment on above: Performed By: #### P SAD, FOL, FERR, FETIBC #### [facility] [address] [address] [address] Radha Brown TIBC DIRECT 353.0 ug/dL Normal 250.0-450.0 [facility] Comment on above: Performed By: #### P SAD, FOL, FERR, FETIBC #### [facility] [address] [address] [address] Radha Brown LIPID PROFILEon 07-29-2022 CHOL-HDL RATIO NORM SEE BELOW Normal [facility] Comment on above: Result Comment: 3.3 - 4.4 LOW RISK 4.4 - 7.1 AVERAGE RISK 7.1 - 11.0 MODERATE RISK >11.0 HIGH RISK Performed By: #### P SAD, FOL, FERR, FETIBC #### [facility] [address] [address] [address] Radha Brown Cholesterol [Mass/Vol] 137 mg/dL Normal <=200 Th [facility] Comment on above: Performed By: #### P SAD, FOL, FERR, FETIBC #### [facility] [address] [address] [address] Radha Brown Cholesterol in HDL [Mass/Vol] 37 mg/dL Critically low 40-60 [facility] Comment on above: Performed By: #### P SAD, FOL, FERR, FETIBC #### [facility] [address] [address] [address] Radha Brown Cholesterol in LDL [Mass/Vol] 67.0 mg/dL Normal [facility] Comment on above: Performed By: #### P SAD, FOL, FERR, FETIBC #### [facility] [address] [address] [address] Radha Brown Cholesterol.total/Choles terol in HDL [Mass ratio] 3.7 {ratio} Normal [facility] Comment on above: Performed By: #### P SAD, FOL, FERR, FETIBC #### [facility] [address] [address] [address] Radha Brown HDL NORMAL > or = 60 mg/dl - LOW CARDIOVASCULAR RISK <40 mg/dl - HIGH CARDIOVASCULAR RISK Normal [facility] Comment on above: Performed By: #### P SAD, FOL, FERR, FETIBC #### [facility] [address] [address] [address] Radha Brown LDL CALC NORMAL SEE BELOW Normal [facility] Comment on above: Result Comment: <100 mg/dl OPTIMAL 100 - 129 mg/dl NEAR OR ABOVE OPTIMAL 130 - 159 mg/dl BORDERLINE HIGH 160 - 189 mg/dl HIGH >190 mg/dl VERY HIGH Performed By: #### P SAD, FOL, FERR, FETIBC #### [facility] [address] [address] [address] Radha Brown Triglyceride [Mass/Vol] 165 mg/dL Critically high <=150 [facility] Comment on above: Performed By: #### P SAD, FOL, FERR, FETIBC #### [facility] [address] [address] [address] Radha Brown VLDL CALC 33.0 mg/dL Normal [facility] Comment on above: Performed By: #### P SAD, FOL, FERR, FETIBC #### [facility] [address] [address] [address] Radha Brown MICROALBUMIN, RAND URon 07-19 mALB <1.3 Normal <=30.0 [facility] Comment on above: Performed By: #### M ALBR #### [facility] [address] [place] [address] Dr. Radha Brown PROF CHEM 8 (BAS METB)on Anion gap [Moles/Vol] 9.1 mmol/L Normal [facility] Comment on above: Performed By: #### P SAD, FOL, FERR, FETIBC #### [facility] [address] [address] [address] Radha Brown Calcium [Mass/Vol] 8.6 mg/dL Normal 8.5-10.1 [facility] Comment on above: Performed By: #### P SAD, FOL, FERR, FETIBC #### [facility] [address] [address] [address] Radha Brown Chloride [Moles/Vol] 106 mmol/L Normal 98-107 [facility] Comment on above: Performed By: #### P SAD, FOL, FERR, FETIBC #### [facility] [address] [address] [address] Radha Brown CO2 [Moles/Vol] 27.1 mmol/L Normal 21.0-32.0 [facility] Comment on above: Performed By: #### P SAD, FOL, FERR, FETIBC #### [facility] [address] [address] [address] Radha Brown Creatinine [Mass/Vol] 1.19 mg/dL Normal 0.70-1.30 [facility] Comment on above: Performed By: #### P SAD, FOL, FERR, FETIBC #### [facility] [address] [place] [address] Dr. Radha Brown EGFR-AF FRENCH >60 Normal >=60 [facility] Comment on above: Performed By: #### P SAD, FOL, FERR, FETIBC #### [facility] [address] [place] [address] Dr. Radha Brown EGFR-NON AF FRENCH 59 mL/min/1.73m2 Critically low >=60 [facility] Comment on above: Performed By: #### P SAD, FOL, FERR, FETIBC #### [facility] [address] [address] [address] Radha Brown Glucose [Mass/Vol] 137 mg/dL Critically high 74-106 [facility] Comment on above: Performed By: #### P SAD, FOL, FERR, FETIBC #### [facility] [address] [address] [address] Radha Brown Potassium [Moles/Vol] 4.2 mmol/L Normal 3.5-5.1 [facility] Comment on above: Performed By: #### P SAD, FOL, FERR, FETIBC #### [facility] [address] [address] [address] Radha Brown Sodium [Moles/Vol] 138 mmol/L Normal 136-145 [facility] Comment on above: Performed By: #### P SAD, FOL, FERR, FETIBC #### [facility] [address] [address] [address] Radha Brown Urea nitrogen [Mass/Vol] 22.0 mg/dL Critically high 7.0-18 .0 [facility] Comment on above: Performed By: #### P SAD, FOL, FERR, FETIBC #### [facility] [address] [address] [address] Radha Brown Urea nitrogen/Creatinine [Mass ratio] 18.5 mg/mg Normal [facility] Comment on above: Performed By: #### P SAD, FOL, FERR, FETIBC #### [facility] [address] [place] [address] Dr. Radha Brown GLYCOHEMOGLOBIN A1Con 2021 ADA RECOMMENDATION SEE BELOW Normal [facility] Comment on above: Result Comment: ADA RECOMMENDED LIMIT 4.0 - 6.0 ADA THERAPEUTIC TARGET < 7.0 ACTION SUGGESTED > 7.0 Performed By: #### A 1C #### [facility] [address] [place] [address] Dr. Radha Brown Glucose [Mass/Vol] 154 mg/dL Normal [facility] Comment on above: Performed By: #### A 1C #### [facility] [address] [place] [address] Dr. Radha Brown HbA1c (Bld) [Mass fraction] 7.0 % Critically high 4.5-6.2 [facility] Comment on above: Performed By: #### A 1C #### [facility] [address] [place] [address] Dr. Radha Brown Vital Signs Date Time Vital Sign Value Performing Clinician Facility 05-28-2025 13:50-0400 Body height 175.26 cm [employer] Work Phone: [facility] 05-28-2025 13:50-0400 Body mass index (BMI) [Ratio] 28 kg/m2 [employer] Work Phone: [facility] 05-28-2025 13:50-0400 Body weight 85.95 kg Nico Ball DO Work Phone: [facility] 05-28-2025 13:50-0400 Diastolic blood pressure 71 mm[Hg] Nico Ball DO Work Phone: [facility] 05-28-2025 13:50-0400 Heart rate 60 /min Nico Ball DO Work Phone: [facility] 05-28-2025 13:50-0400 Respiratory rate 12 /min Nico Ball DO Work Phone: [facility] 05-28-2025 13:50-0400 Systolic blood pressure 106 mm[Hg] Nico Ball DO Work Phone: [facility] 04-16-2025 13:34-0400 Body height 175.26 cm Nico Ball DO Work Phone: [facility] 04-16-2025 13:34-0400 Body mass index (BMI) [Ratio] 27.6 kg/m2 Nico Ball DO Work Phone: [facility] 04-16-2025 13:34-0400 Body weight 84.93 kg Nico Ball DO Work Phone: [facility] 04-16-2025 13:34-0400 Diastolic blood pressure 52 mm[Hg] Nico Ball DO Work Phone: [facility] 04-16-2025 13:34-0400 Heart rate 88 /min Nico Ball DO Work Phone: [facility] 04-16-2025 13:34-0400 Respiratory rate 12 /min Nico Ball DO Work Phone: [facility] 04-16-2025 13:34-0400 Systolic blood pressure 101 mm[Hg] Nico Ball DO Work Phone: [facility] 03-24-2025 11:15-0400 Body height 175.26 cm Nico Ball DO Work Phone: [facility] 03-24-2025 11:15-0400 Body mass index (BMI) [Ratio] 28 kg/m2 Nico Ball DO Work Phone: [facility] 03-24-2025 11:15-0400 Body weight 85.95 kg Nico Ball DO Work Phone: [facility] 03-24-2025 11:15-0400 Diastolic blood pressure 62 mm[Hg] Nico Ball DO Work Phone: [facility] 03-24-2025 11:15-0400 Heart rate 58 /min Nico Ball DO Work Phone: [facility] 03-24-2025 11:15-0400 Respiratory rate 18 /min Nico Ball DO Work Phone: [facility] 03-24-2025 11:15-0400 Systolic blood pressure 96 mm[Hg] Nico Ball DO Work Phone: [facility] 12-10-2024 14:34-0400 Body mass index (BMI) [Ratio] 29.46 kg/m2 ANATOLY Bartlett MD Work Phone: [facility] 12-10-2024 14:34-0400 Body temperature 96.49 [degF] ANATOLY Bartlett MD Work Phone: [facility] 12-10-2024 14:34-0400 Body weight 91.8 kg ANATOLY Bartlett MD Work Phone: [facility] 12-10-2024 14:34-0400 Diastolic blood pressure 69 mm[Hg] ANATOLY Bartlett MD Work Phone: [facility] 12-10-2024 14:34-0400 Heart rate 60 /min ANATOLY Bartlett MD Work Phone: [facility] 12-10-2024 14:34-0400 Respiratory rate 18 /min ANATOLY Bartlett MD Work Phone: [facility] 12-10-2024 14:34-0400 SaO2% (BldA) [Mass fraction] 97 % ANATOLY Bartlett MD Work Phone: [facility] 12-10-2024 14:34-0400 Systolic blood pressure 112 mm[Hg] ANATOLY Bartlett MD Work Phone: [facility] 11-21-2024 09:57-0500 Body height 175.26 cm [facility] 11-21-2024 09:57-0500 Body mass index (BMI) [Ratio] 29.9 kg/m2 [facility] 11-21-2024 09:57-0500 Body weight 92.13 kg [facility] 11-21-2024 09:57-0500 Diastolic blood pressure 70 mm[Hg] [facility] 11-21-2024 09:57-0500 Heart rate 65 /min [facility] 11-21-2024 09:57-0500 Respiratory rate 14 /min [facility] 11-21-2024 09:57-0500 SaO2% (BldA) [Mass fraction] 95 % [facility] 11-21-2024 09:57-0500 Systolic blood pressure 124 mm[Hg] [facility] 08-09-2024 09:14-0500 Body mass index (BMI) [Ratio] 30.81 kg/m2 ANATOLY Bartlett MD Work Phone: [facility] 08-09-2024 09:14-0500 Body temperature 97.39 [degF] ANATOLY Bartlett MD Work Phone: [facility] 08-09-2024 09:14-0500 Body weight 96 kg ANATOLY Bartlett MD Work Phone: [facility] 08-09-2024 09:14-0500 Diastolic blood pressure 62 mm[Hg] ANATOLY Bartlett MD Work Phone: [facility] 08-09-2024 09:14-0500 Heart rate 70 /min ANATOLY Bartlett MD Work Phone: [facility] 08-09-2024 09:14-0500 Respiratory rate 16 /min ANATOLY Bartlett MD Work Phone: [facility] 08-09-2024 09:14-0500 SaO2% (BldA) [Mass fraction] 97 % ANATOLY Bartlett MD Work Phone: [facility] 08-09-2024 09:14-0500 Systolic blood pressure 105 mm[Hg] ANATOLY Bartlett MD Work Phone: [facility] 07-30-2024 11:20-0500 Body height 175.26 cm [facility] 07-30-2024 11:20-0500 Body mass index (BMI) [Ratio] 31.3 kg/m2 [facility] 07-30-2024 11:20-0500 Body weight 96.27 kg [facility] 07-30-2024 11:20-0500 Diastolic blood pressure 70 mm[Hg] [facility] 07-30-2024 11:20-0500 Heart rate 62 /min [facility] 07-30-2024 11:20-0500 Respiratory rate 12 /min [facility] 07-30-2024 11:20-0500 Systolic blood pressure 111 mm[Hg] [facility] 03-27-2024 11:06-0400 Body height 175.26 cm [facility] 03-27-2024 11:06-0400 Body mass index (BMI) [Ratio] 32.3 kg/m2 [facility] 03-27-2024 11:06-0400 Body weight 99.33 kg [facility] 03-27-2024 11:06-0400 Diastolic blood pressure 64 mm[Hg] [facility] 03-27-2024 11:06-0400 Heart rate 72 /min [facility] 03-27-2024 11:06-0400 Respiratory rate 20 /min [facility] 03-27-2024 11:06-0400 Systolic blood pressure 98 mm[Hg] [facility] 02-15-2024 09:44-0400 Body mass index (BMI) [Ratio] 31.83 kg/m2 ANATOLY Bartlett MD Work Phone: [facility] 02-15-2024 09:44-0400 Body temperature 97.3 [degF] ANATOLY Bartlett MD Work Phone: [facility] 02-15-2024 09:44-0400 Body weight 99.2 kg ANATOLY Bartlett MD Work Phone: [facility] 02-15-2024 09:44-0400 Diastolic blood pressure 69 mm[Hg] ANATOLY Bartlett MD Work Phone: [facility] 02-15-2024 09:44-0400 Heart rate 66 /min ANATOLY Bartlett MD Work Phone: [facility] 02-15-2024 09:44-0400 Respiratory rate 18 /min ANATOLY Bartlett MD Work Phone: [facility] 02-15-2024 09:44-0400 Systolic blood pressure 109 mm[Hg] ANATOLY Bartlett MD Work Phone: [facility] 08-17-2023 10:03-0500 Body temperature 96.91 [degF] ANATOLY Bartlett MD Work Phone: [facility] 08-17-2023 10:03-0500 Body weight 104.78 kg ANATOLY Bartlett MD Work Phone: [facility] 08-17-2023 10:03-0500 Diastolic blood pressure 75 mm[Hg] ANATOLY Bartlett MD Work Phone: [facility] 08-17-2023 10:03-0500 Heart rate 62 /min ANATOLY Bartlett MD Work Phone: [facility] 08-17-2023 10:03-0500 Respiratory rate 16 /min ANATOLY Bartlett MD Work Phone: [facility] 08-17-2023 10:03-0500 SaO2% (BldA) [Mass fraction] 95 % ANATOLY Bartlett MD Work Phone: [facility] 08-17-2023 10:03-0500 Systolic blood pressure 156 mm[Hg] ANATOLY Bartlett MD Work Phone: [facility] 07-26-2023 11:00-0500 Body height 175.26 cm Nico Ball Other [employer] Other 07-26-2023 11:00-0500 Body mass index (BMI) [Ratio] 33.37 kg/m2 Nico Ball Other [employer] Other 07-26-2023 11:00-0500 Body weight 102.51 kg Nico Ball Other [employer] Other 07-26-2023 11:00-0500 Diastolic blood pressure 83 mm[Hg] Nico Ball Other [facility] Other 07-26-2023 11:00-0500 Respiratory rate 12 /min Nico Ball Other [employer] Other 07-26-2023 11:00-0500 Systolic blood pressure 133 mm[Hg] Nico Ball Other [employer] Other 11-29-2022 14:30-0400 Body height 175.26 cm Nico Ball Other [employer] Other 11-29-2022 14:30-0400 Body mass index (BMI) [Ratio] 34.58 kg/m2 Nico Ball Other [employer] Other 11-29-2022 14:30-0400 Body weight 106.23 kg Nico Ball Other [employer] Other 11-29-2022 14:30-0400 Diastolic blood pressure 71 mm[Hg] Nico Ball Other [employer] Other 11-29-2022 14:30-0400 Respiratory rate 12 /min Nico Ball Other [employer] Other 11-29-2022 14:30-0400 Systolic blood pressure 118 mm[Hg] Nico Ball Other [facility] Other 11-01-2022 11:22-0500 Blood Pressure Location HENRIQUE LANDRUM [facility] 11-01-2022 11:22-0500 Diastolic blood pressure 80 mm[Hg] HENRIQUE LANDRUM [facility] 11-01-2022 11:22-0500 Heart rate 68 /min HENRIQUE LANDRUM [facility] 11-01-2022 11:22-0500 Respiratory rate 16 /min HENRIQUE LANDRUM [facility] 11-01-2022 11:22-0500 Systolic blood pressure 137 mm[Hg] HENRI[facility] LANDRUM [facility] 08-18-2022 10:22-0500 Body temperature 96.21 [degF] ANATOLY Bartlett MD Work Phone: [facility] 08-18-2022 10:22-0500 Body weight 105.23 kg ANATOLY Bartlett MD Work Phone: [facility] 08-18-2022 10:22-0500 Diastolic blood pressure 55 mm[Hg] ANATOLY Bartlett MD Work Phone: [facility] 08-18-2022 10:22-0500 Heart rate 78 /min ANATOLY Bartlett MD Work Phone: [facility] 08-18-2022 10:22-0500 Respiratory rate 18 /min ANATOLY Bartlett MD Work Phone: [facility] 08-18-2022 10:22-0500 SaO2% (BldA) [Mass fraction] 98 % ANATOLY Bartlett MD Work Phone: [facility] 08-18-2022 10:22-0500 Systolic blood pressure 125 mm[Hg] ANATOLY Bartlett MD Work Phone: [facility] 02-17-2022 09:51-0400 Body temperature 96.1 [degF] ANATOLY Bartlett MD Work Phone: [facility] 02-17-2022 09:51-0400 Body weight 100.7 kg ANATOLY Bartlett MD Work Phone: [facility] 02-17-2022 09:51-0400 Diastolic blood pressure 75 mm[Hg] ANATOLY Bartlett MD Work Phone: [facility] 02-17-2022 09:51-0400 Heart rate 66 /min ANATOLY Bartlett MD Work Phone: [facility] 02-17-2022 09:51-0400 Respiratory rate 16 /min ANATOLY Bartlett MD Work Phone: [facility] 02-17-2022 09:51-0400 SaO2% (BldA) [Mass fraction] 97 % ANATOLY Bartlett MD Work Phone: [facility] 02-17-2022 09:51-0400 Systolic blood pressure 120 mm[Hg] ANATOLY Bartlett MD Work Phone: [facility] Encounters Encounter Date Encounter Type Care Provider Facility Start: 05-28-2025 End: 05-28-2025 ambulatory Nico Ball DO Work Phone: [facility] Work Phone: Start: 05-28-2025 End: 05-28-2025 Patient encounter procedure Nico Ball DO -[facility] Work Phone: Start: 04-16-2025 End: 04-16-2025 ambulatory Nico Ball DO Work Phone: [facility] Work Phone: Start: 04-16-2025 End: 04-16-2025 Patient encounter procedure Nico Ball DO -[facility] Work Phone: Start: 03-24-2025 End: 03-24-2025 ambulatory Nico Ball DO Work Phone: [facility] Work Phone: Start: 03-24-2025 End: 03-24-2025 Patient encounter procedure Nico Lino DO -[facility] Work Phone: Start: 03-18-2025 Non-patient / Non-visit Nico scott DO -[facility] Work Phone: Start: 12-10-2024 End: 12-10-2024 ambulatory NICO LINO Facility:[facility] Start: 12-10-2024 End: 12-10-2024 Office outpatient visit 15 minutes Yuan Bartlett MD Work Phone: Radiation Oncology Comment on above: Cancer of prostate w /med recur risk (T2b-c or [place] 7 or PSA 10-20) (HCC) (Primary Dx) Start: 11-21-2024 End: 11-21-2024 ambulatory [facility] Work Phone: Start: 11-21-2024 End: 11-21-2024 Patient encounter procedure [facility] Work Phone: Start: 08-09-2024 End: 08-09-2024 ambulatory NICO LINO Facility:[facility] Start: 08-09-2024 End: 08-09-2024 Patient encounter procedure Yuan Bartlett MD Work Phone: Radiation Oncology Comment on above: Cancer of prostate w /med recur risk (T2b-c or [place] 7 or PSA 10-20) (HCC) (Primary Dx) Start: 07-30-2024 End: 07-30-2024 ambulatory [facility] Work Phone: Start: 07-30-2024 End: 07-30-2024 Patient encounter procedure [facility] Work Phone: Start: 07-27-2024 Patient encounter procedure [facility] Start: 07-24-2024 Non-patient / Non-visit [facility] Work Phone: Start: 07-03-2024 End: 07-03-2024 Refill [...] Start: 03-27-2024 End: 03-27-2024 Patient encounter procedure [facility] Work Phone: Start: 03-26-2024 [facility]patient / [facility] Start: 03-05-2024 End: 03-05-2024 ambulatory HENRIQUE LANDRUM Facility:[facility] Start: 03-05-2024 End: 03-05-2024 Patient encounter procedure HENRIQUE LANDRUM [facility] Start: 02-15-2024 End: 02-15-2024 Patient encounter procedure Yuan Bartlett MD Work Phone: Radiation Oncology Comment on above: Cancer of prostate w /med recur risk (T2b-c or [place] 7 or PSA 10-20) (HCC) (Primary Dx) Start: 02-15-2024 End: 02-15-2024 ambulatory NICO LINO Facility:[facility] Start: 02-14-2024 Non-patient / Non-visit [facility] Work Phone: Start: 08-17-2023 End: 08-17-2023 Patient encounter procedure Yuan Bartlett MD Work Phone: Radiation Oncology Comment on above: Malignant neoplasm o f prostate (HCC) (Primary Dx) Start: 07-26-2023 End: 07-26-2023 ambulatory Nico Lino Other [employer] Other Start: 07-26-2023 Patient encounter procedure Nico Lino [facility] Start: 07-17-2023 End: 07-17-2023 ambulatory Nico Lino Other [employer] Other Start: 07-17-2023 Telephone encounter Nico MERAZ [facility] Start: 04-04-2023 End: 04-04-2023 ambulatory Nico Lino Other [employer] Other Start: 04-04-2023 Telephone encounter Nico MERAZ [facility] Start: 01-05-2023 End: 01-05-[address] NICO LINO Facility: Start: 11-29-2022 End: 11-30-[address] NICO LINO [facility] Other Start: 11-29-2022 Office outpatient vi sit 25 minutes Nico Lino [facility] Start: 11-01-2022 End: 11-01-2022 Patient encounter procedure HENRIQUE LANDRUM [facility] Start: 08-18-2022 End: 08-18-2022 ambulatory Irlanda Castro APRN.CNP Work Phone: Hematology/Oncology Comment on above: Prostate cancer (HCC ) Start: 08-18-2022 End: 08-18-2022 Patient encounter procedure Irlanda Castro [employer] Work Phone: CHRISTOPHER Comment on above: Prostate cancer (HCC ) (Primary Dx) Start: 07-29-2022 End: 07-30-[address] NICO LINO Facility:[facility] Start: 07-25-2022 Adult health examination Nico Lino Other [employer] Other Start: 02-17-2022 End: 02-17-2022 Patient encounter [...] 07-19-2021 Pre-procedure evaluation check Nico Lino Other [employer] Other Start: 10-24-2014 End: 10-25-2014 Patient encounter DEFAULT PHYSICIAN Facility:[facility] Procedures Date Procedure Procedure Detail Performing Clinician [...] eyes (Primary Dx) Start: 02-14-2024 PSA screening Yuan Bartlett MD Work Phone: Start: 04-04-2023 PSA screening [facility] Start: 07-29-2022 End: 07-29-2022 PSA screening [facility] Provider Comment on above: Performed By: #### P SAD, FOL, FERR, FETIBC #### [facility] [address] [address] [address] Radha Brown Start: 02-17-2022 Adult depression screening assessment ANATOLY Bartlett MD Work Phone: Start: 02-16-2022 End: 02-16-2022 PSA screening [facility] Provider Comment on above: Performed By: #### P SAD #### [facility] [address] [address] [address] Radha Brown Start: 07-07-2021 Brachytherapy implan [...] DTaP,Tdap,Td Vaccine (2 - Td or Tdap) [facility] Start: 06-17-2025 End: 06-17-2025 Patient encounter procedure 06/17/2025 11:30 AM EDT Office Visit Radiation Oncology 07 [place] [address] [place] [address] Yuan Bartlett MD [address] [place] [place] [address] Labs to be done at [facility] prior Radiation Oncology Comment on above: Labs to be done at [facility] prior Start: 06-12-2025 End: 09-11-2025 Testosterone [Mass/volume] in Serum or Plasma TESTOSTERONE, TOTAL BY IMMUNOASSAY (ADULT MALES, OR INDIVIDUALS ON TESTOSTERONE THERAPY) Lab Routine Cancer of prostate w/med recur risk (T2b-c or [place] 7 or PSA 10-20) (HCC) Expected: 06/12/2025, Expires: 09/11/2025 [facility] Comment on above: Expected: 06/12/2025 , Expires: 09/11/2025 Start: 04-11-2025 End: 07-11-2025 Prostate specific Ag [Mass/volume] in Serum or Plasma PROSTATE-SPECIFIC ANTIGEN DIAGNOSTIC Lab Routine Cancer of prostate w/med recur risk (T2b-c or Asaf 7 or PSA 10-20) (HCC) Expected: 04/11/2025 (Approximate), Expires: 07/11/2025 [facility] Work Phone: Comment on above: Expected: 04/11/2025 (Approximate), Expires: 07/11/2025 Start: 12-10-2024 End: 12-10-2024 Patient encounter procedure 12/10/2024 2:45 PM EDT Office Visit Radiation Oncology [address] [place] [address] [place] [address] Yuan Bartlett MD [address] [place] [address] 4 month follow up Radiation Oncology Comment on above: 4 month follow up Start: 12-07-2024 End: 03-08-2025 Prostate specific Ag [Mass/volume] in Serum or Plasma PROSTATE-SPECIFIC ANTIGEN DIAGNOSTIC Lab Routine Cancer of prostate w/med recur risk (T2b-c or Asaf 7 or PSA 10-20) (HCC) Expected: 12/07/2024, Expires: 03/08/2025 [facility] Work Phone: Comment on above: Expected: 12/07/2024 , Expires: 03/08/2025 Start: 12-07-2024 End: 03-08-2025 Testosterone [Mass/volume] in Serum or Plasma TESTOSTERONE, TOTAL BY IMMUNOASSAY (ADULT MALES, OR INDIVIDUALS ON TESTOSTERONE THERAPY) Lab Routine Cancer of prostate w/med recur risk (T2b-c or Asaf 7 or PSA 10-20) (HCC) Expected: 12/07/2024, Expires: 03/08/2025 [facility] Comment on above: Expected: 12/07/2024 , Expires: 03/08/2025 Start: 09-18-2024 Advance Directive Discussion Advance Directive Discussion [facility] Start: 08-17-2024 End: 11-16-2024 Prostate specific Ag [Mass/volume] in Serum or Plasma PROSTATE-SPECIFIC ANTIGEN DIAGNOSTIC Lab Routine Cancer of prostate w/med recur risk (T2b-c or Asaf 7 or PSA 10-20) (HCC) Expected: 08/17/2024, Expires: 11/16/2024 [facility] Work Phone: Comment on above: Expected: 08/17/2024 , Expires: 11/16/2024 Start: 08-08-2024 End: 08-08-2024 Patient encounter procedure 08/08/2024 9:15 AM EST Office Visit Radiation Oncology [address] [place] [address] [place] [address] Yuan Bartlett MD [address] [place] [address] [place] [address] 6 month rv Radiation Oncology Comment on above: 6 month rv Start: 07-31-2024 Diabetes Screening Diabetes Screenin yuan [facility] Start: 06-24-2024 End: 06-24-2024 Patient encounter procedure 06/24/2024 9:05 AM EDT Procedure Visit [facility] Conchita Kenny, DO [address] [place] [address] [facility] Start: 06-10-2024 End: 06-10-2024 Patient encounter procedure 06/10/2024 10:25 AM EDT Procedure Visit [facility] Conchita Kenny, DO [address] [place] [address] [facility] Start: 05-19-2024 Covid-19 Vaccine () Covid-19 Vaccine () [facility] Start: 05-19-2024 Influenza vaccination Influenza Vacc ine (#1) [facility] Start: 05-14-2024 End: 05-14-2024 Patient encounter procedure 05/14/2024 1:45 PM EDT Office Visit [facility] [address] [place] [id number] Conchita Kenny, DO [address] [place] [address] Arrived [facility] Comment on above: Arrived Start: 02-15-2024 End: 05-16-2024 Prostate specific Ag [Mass/volume] in Serum or Plasma PSA/PROSTSPECAG DIAG Lab Routine Malignant neoplasm of prostate (HCC) Expected: 02/15/2024 (Approximate), Expires: 05/16/2024 [facility] Work Phone: Comment on above: Expected: 02/15/2024 (Approximate), Expires: 05/16/2024 Start: 10-14-2023 Covid-19 Vaccine () Covid-19 Vaccine () [facility] Start: 09-18-2023 Advance Directive Discussion Advance Directive Discussion [facility] Start: 09-18-2023 Behavioral Health Screening Behavioral Health Screening [facility] Start: 08-18-2023 End: 10-18-2023 Prostate specific Ag [Mass/volume] in Serum or Plasma PSA/PROSTSPECAG DIAG Lab Routine Prostate cancer (HCC) Expected: 08/18/2023, Expires: 10/18/2023 [facility] Work Phone: Comment on above: Expected: 08/18/2023 , Expires: 10/18/2023 Start: 02-17-2023 Adult depression screening assessment DEPRESSION SCREENING [facility] Start: 09-18-2022 Advance Directive Discussion Advance Directive Discussion [facility] Start: 09-18-2022 Depression Assessment Depression Ass essment [facility] Start: 08-19-2022 End: 10-19-2022 Prostate specific Ag [Mass/volume] in Serum or Plasma PSA/PROSTSPECAG DIAG Lab Routine Prostate cancer (HCC) Expected: 08/19/2022 (Approximate), Expires: 10/19/2022 [facility] Work Phone: Comment on above: Expected: 08/19/2022 (Approximate), Expires: 10/19/2022 Start: 09-18-2021 ADVANCE DIRECTIVE DISCUSSION ADVANCE DIRECTIVE DISCUSSION [facility] Start: 09-18-2021 DEPRESSION ASSESSMENT DEPRESSION ASS ESSMENT [facility] Start: 05-03-2021 COVID-19 VACCINE (3 - Booster for Moderna series) COVID-19 VACCINE (3 - Booster for Moderna series) [facility] Start: 2020 RSV Vaccine (1 - 1-d ose 75+ series) RSV Vaccine (1 - 1-dose 75+ series) [facility] Start: 10-04-2019 Pneumococcal Vaccine : 50+ (2 of 2 - PCV) Pneumococcal Vaccine: 50+ (2 of 2 - PCV) [facility] Start: 10-04-2019 Pneumococcal Vaccine : 65+ (2 - PCV) Pneumococcal Vaccine: 65+ (2 - PCV) [facility] Start: 10-04-2019 Pneumococcal Vaccine : 65+ (2 of 2 - PCV) Pneumococcal Vaccine: 65+ (2 of 2 - PCV) [facility] Start: 10-04-2019 Pneumococcal Vaccine : 65+ Years (2 of 2 - PCV) Pneumococcal Vaccine: 65+ Years (2 of 2 - PCV) [facility] Start: 10-04-2019 PNEUMOCOCCAL: 65+ (2 - PCV) PNEUMOCOCCAL: 65+ (2 - PCV) [facility] Start: 2005 RSV Vaccine (1 - 1-d ose 60+ series) RSV Vaccine (1 - 1-dose 60+ series) [facility] Start: 1995 SHINGRIX VACCINE (1 of 2) SHINGRIX VACCINE (1 of 2) [facility] Start: 1990 DIABETES SCREEN DIABETES SCREEN [facility] Start: 1964 SHINGRIX VACCINE (1 of 2) SHINGRIX VACCINE (1 of 2) [facility] Start: 1964 Urine microalbumin profile DTAP,TDAP,TD (1 - Tdap) [facility] Start: 1963 Anxiety Screening Anxiety Screening [facility] Start: 1963 Depression Screening Depression Scre ening [facility] Start: 1963 HEPATITIS C SCREENING HEPATITIS C [facility] Start: 1963 Hepatitis C screening Hepatitis C [facility] Comprehensive metabo lic 1999 panel - Serum or Plasma [facility] Comprehensive metabo lic 1999 panel - Serum or Plasma [facility] Comprehensive metabo lic 1999 panel - Serum or Plasma [facility] Microalbumin [Mass/volume] in Urine [facility] XR Hip - right 2 Views [facility] XR Lumbar spine 2 or 3 Views [facility] Immunizations Immunization Date Immunization Notes Care Provider Mak loya 07-30-2024 influenza, high dose seasonal, preservative-free [facility] 06-14-2023 COVID-19 Vaccine Pfi zer - Documentation Purposes Only Nico Lino Other [facility] 06-14-2023 Flu Shot - Documentation Purposes Only Nico Lino Other [facility] Other 06-14-2023 influenza virus vaccine, unspecified formulation Conchita Kenny DO Work Phone: [facility] 01-05-2023 tetanus toxoid, redu doni diphtheria toxoid, and acellular pertussis vaccine, adsorbed Nico Lino Other [facility] Other 07-25-2022 influenza (aIIV4) vaccine, age 65+ yr, quadrivalent, PF (FLUAD QUAD) ANATOLY Bartlett MD Work Phone: [facility] 07-25-2022 influenza virus vaccine, split virus (incl. purified surface antigen) Nico Lino Other [facility] Other 07-25-2022 influenza virus vaccine, unspecified formulation HENRIQUE LANDRUM [facility] 07-23-2022 SARS-CoV-2 (COVID-19 ) [id number] HENRIQUE LANDRUM [facility] 05-05-2022 SARS-CoV-2 mRNA (yvizenbbwxg-udrl-vtrdo se) vaccine HENRIQUE LANDRUM [facility] 06-10-2021 influenza nasal, unspecified formulation ANATOLY Bartlett MD Work Phone: [facility] 06-10-2021 influenza virus vaccine, split virus (incl. purified surface antigen) Nico Lino Other [facility] [employer] [facility] Other 06-10-2021 influenza virus vaccine, unspecified formulation HENRIQUE LANDRUM [facility] 06-10-2021 Seasonal trivalent influenza vaccine, adjuvanted, preservative free ANATOLY Bartlett MD Work Phone: [facility] 12-01-2020 COVID-19 vaccine, fu ll dose (MODERNA) ANATOLY Bartlett MD Work Phone: [facility] 11-05-2020 COVID-19 vaccine, fu ll dose (MODERNA) ANATOLY Bartlett MD Work Phone: [facility] 07-09-2020 influenza virus vaccine, split virus (incl. purified surface antigen) Nico Lino Other [facility] Other 07-09-2020 influenza virus vaccine, unspecified formulation [facility] 06-04-2019 influenza nasal, unspecified formulation ANATOLY Bartlett MD Work Phone: [facility] 06-04-2019 influenza virus vaccine, unspecified formulation HENRIQUE JUAREZRY [facility] 06-04-2019 Seasonal trivalent influenza vaccine, adjuvanted, preservative free ANATOLY Bartlett MD Work Phone: [facility] 10-04-2018 pneumococcal Conjuga te, unspecified formulation; Translations: [Need for prophylactic vaccination against Streptococcus pneumoniae (pneumococcus)] Nico Lino Other [facility] [employer] [facility] Other 10-04-2018 pneumococcal polysaccharide vaccine, 23 valent ANATOLY Bartlett MD Work Phone: [facility] 06-24-2015 influenza virus vaccine, split virus (incl. purified surface antigen) Nico Lino Other [employer] [facility] Other 06-24-2015 influenza virus vaccine, unspecified formulation [facility] 06-24-2015 pneumococcal conjuga te vaccine, 13 valent Nico Lino Other [facility] Payers Date Payer Category Payer Medicaid [employer] MEDICARE A DVANTAGE [id number] 2022 Medicare (Managed Care) [employer] AR DICARE [id number] 2020 Unknown 2020 Unknown MMO MMO TRADITIO NAL [id number] 2020-Present [phone] [address] [place] [address] Indemnity [id number] 2011 Medicare MEDICARE MEDICAR E A AND B [id number] 2011-Present [phone] [place] [address] Medicare [id number] 2011 Medicare [id number] 1959 Medicare [id number] 1959 Medicare [id number] 1959 Self-pay [id number] 1959 Unknown [id number] 1945 Unknown [id number] 593 1945 Unknown [id number] 593 1945 Unknown [id number] 593 1945 Unknown [id number] 593 1945 Unknown [id number] 593 1945 Unknown [id number] 593 1945 Unknown [id number] 1945 Unknown [id number] Social History Date Type Detail Facility Start: 03-03-2021 End: 11-23-2023 Tobacco smoking status NHIS Ex-smoker [facility] Start: 03-03-1957 End: 03-03-1961 History of tobacco use Current smoker [facility] Start: 03-03-2021 End: 08-17-2023 Cigarettes smoked current (pack per day) - Reported 0.5 [facility] Start: 03-03-2021 End: 08-09-2024 Tobacco use and exposure Smokeless tobacco non-user [facility] Start: 02-17-2022 End: 08-09-2024 Alcohol intake Current drinker of alcohol (finding) [facility] Start: 03-03-2021 History SDOH Alcohol Comment Socially [facility] Start: 1945 Sex Assigned At Not on file [facility] Start: 07-06-2021 End: 08-18-2022 Exposure to SARS-CoV-2 (event) Not sure [facility] Start: 03-03-1957 End: 03-03-1961 History of tobacco use Cigarette Smoker [facility] Start: 08-18-2022 End: 08-17-2023 Sex Assigned At Male Tom Arias [facility] Adult Depression Screening Assessment 0 [facility] Start: 1945 Sex Assigned At Male F [facility] Start: 07-30-2024 End: 11-21-2024 Sex Male (finding) [facility] consumption unknown [facility] [...] 24, 2025 10:41am Chronic kidney disease acute Ju ly 2024 10:41am Chronic venous insufficiency acute March [...] 16, 2025 1:26pm Chronic kidney disease acute Ju ly 2024 1:26pm Chronic venous insufficiency acute April 16, 2025 1:26pm Diabetes mellitus with hyperglycemia acute April 16, 2025 1:26pm Elevated cholesterol acute April 16, 2025 1:26pm Pernicious anemia acute April 162024 1:26pm Primary hypertension acute April 16, 2025 1:26pm Prostate cancer acute March 1:26pm Weight loss acute April 16 1:26pm [facility] Work Phone: 1(271) 143-127307-07-2025 Evaluation note* Diagnosis Onset Date Resolution Status Admit Date ASHD (arteriosclerotic heart disease) acute March 24, 2025 1 0:41am Chronic kidney disease acute Ju ly 2024 10:41am Chronic venous insufficiency acute March 24, 2025 10:41am Diabetes mellitus with hyperglycemia acute March 24, 2025 1 0:41am Elevated cholesterol acute March 24, 2025 10:41am Pernicious anemia acute March h2024 10:41am Primary hypertension acute March 24, 2025 [...] 1:26pm Weight loss acute April 16 1:26pm ASHD (arteriosclerotic heart disease) acute May 28, 2025 1:41pm Chronic kidney disease acute 2024 1:41pm Chronic venous insufficiency acute May 28, 2025 1:41pm Diabetes mellitus with hyperglycemia acute May 28, 2025 1:41pm Elevated cholesterol acute May 1:41pm Pernicious anemia acute 2024 1:41pm Primary hypertension acute May 1:41pm Prostate cancer acute May 28, 2025 1:41pm Weight loss acute May 1:41pm [facility] Work Phone: 1(280) 308-119404-01-2025 Evaluation note* Diagnosis Cancer of prostate w/med recur risk (T2b-c or [place] 7 or PSA 10-20) (HCC)- Primary Malignant neoplasm of prostate documented in this encounter [facility]03-25-2025 History of Present illness Narrative* Yuan Bartlett MD - 12/10/2024 2:45 PM EDT ) C. 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 Clinically doing well. PSA with minimal change management analyst the last 3 to 4 months. Has risen over the last12 months still likely related to testosterone recovery after prior ADT. Recommend continued close observation. If continues to climb consider PSMA PET. Signed by: Yuan Bartlett MD cc: Nico Lino ([facility]) [address] [place] [address] Portions of the above note extracted and edited from previous visit as well as active information included in the EMR. * Katiana Acharya RN - 12/10/2024 2:38 PM EDT AUA 10 Katiana Acharya RN documented [facility]25 NoteHNO ID: [id number] Author: Yuan BARTLETT MD Service: ? Author Type: Physician Type: Progress Notes Filed: 12/17/2024 10:57 Note Text: ) C. 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 Clinically doing well. PSA with minimal change management analyst the last 3 to 4 months. Has risen over the last 12 months still likely related to testosterone recovery after prior ADT. Recommend continued close observation. If continues to climb consider PSMA PET. Signed by: Yuan Bartlett MD cc: Nico Lino ([facility]) [address] [place] [address] Portions of the above note extracted and edited from previous visit as well as active information included in the EMR.[facility]03-25-2025 Note HNO ID: [id number] Author: KATIANA ACHARYA RN Service: ? Author Type: Registered Nurse Type: Progress Notes Filed: 12/17/2024 10:57 Note Text: AUSantiago Acharya RNK[facility]11-[facility] Evaluation note* Diagnosis Cancer of prostate w/med recur risk (T2b-c or Asaf 7 or PSA 10-20) (HCC)- Primary Malignant neoplasm of prostate documented in this encounter [facility]11-22-2024 NoteHNO ID: [id number] Author: Yuan BARTLETT MD Service: ? Author [...] ASSESSMENT/PLAN: Prostate adenocarcinoma, initial PSA 11.5, biopsy [place] score 4 + 3 = 7 (grade [...] to climb consider PSMA PET. Signed by: Yuan Bartlett MD cc: Nico Lino ([facility]) [address] [place] [address] [place] Portions of the above note extracted and edited from previous visit as well as active information included in the EMR.[facility]11-22-2024 History of Present illness Narrative* Yuan Bartlett MD - 08/09/2024 9:19 AM EST Radiation Oncology - Follow Up Note PATIENT NAME: Segun Johnson PATIENT DIAGNOSIS: Prostate adenocarcinoma, initial PSA 11.5, biopsy [place] score 4 + 3 = 7 (grade [...] to climb consider PSMA PET. Signed by: Yuan Bartlett MD cc: Nico Lino ([facility]) [address] [place] [address] Dr. Rice Portions of the above note extracted and edited from previous visit as well as active information included in the EMR. documented in [facility]11[facility] Nurse Note* Jillian Waddell LPN - 08/09/2024 9:15 AM EST AUA= 8 [facility]11-22-2024 Nurse Note* Jillian Waddell LPN - 08/09/2024 9:15 AM EST AUA= 8 documented in this encounterS[facility]08-[facility] History of Present illness Narrative* Conchita [...] History: Diagnosis Date ASHD (arteriosclerotic heart disease) ([facility]) Cataract Diabetes mellitus with hyperglycemia ([facility]) Dry eyes Elevated cholesterol ([facility]) CATHY (generalized anxiety disorder) ([facility]) Hypertension ([facility]) Pernicious anemia Prostate cancer ([facility]) 2021 s/p Hormone tx, CTx, external [...] @ 2:06 PM Additional Tests Keratometry K1 [place] K2 [place] Right 45.5 151 46.5 61 Left 45.75 [...] Normal Normal Refraction Wearing Rx Sphere Cylinder [place] Add Right -4.75 +0.00 180 +2.50 Left -5.75 -0.50 055 +2.50 Manifest Refraction Sphere Cylinder [place] Right -4.25 -1.25 110 Left -6.00 -1.00 055 Final Rx Sphere Cylinder [place] Dist [facility] Right -4.25 -0.75 110 20/40 [...] different lens options were explained including the yxh-yo-eryeth fees for any upgrades. Intraocular lens (IOL) [...] and OD - 06/24. documented in this encounterHarry [facility] [id number] Evaluation note* Diagnosis Cancer of prostate w/med recur risk (T2b-c or Asaf 7 or PSA 10-20) (HCC)- Primary Malignant neoplasm of prostate documented in this encounter [facility]05-30-2024 History of Present illness Narrative* Yuan Bartlett MD - 02/15/2024 10:00 AM EDT Radiation Oncology - Follow Up Note PATIENT NAME: Segun Johnson PATIENT DIAGNOSIS: Prostate adenocarcinoma, initial PSA 11.5, biopsy [place] score 4 + 3 = 7 (grade [...] by: Yuan Bartlett MD cc: Nico Lino ([facility]) [address] [place] [address] Dr. Storey Portions of the above note extracted and edited from previous visit as well as active information included in the EMR. documented in this encounterShelby [facility]05-30-2024 NoteHNO ID: [id number] Author: Yuan BARTLETT MD Service: ? Author Type: Physician Type: Progress Notes Filed: 02/15/2024 11:26 Note Text: Radiation Oncology - Follow Up Note PATIENT NAME: Segun Johnson PATIENT DIAGNOSIS: Prostate adenocarcinoma, initial PSA 11.5, biopsy [place] score 4 + 3 = 7 (grade [...] by: Yuan Bartlett MD cc: Nico Lino ([facility]) [address] [place] [address] Dr. Storey Portions of the above note extracted and edited from previous visit as well as active information included in the EMR.[facility]05-30-2024 Nurse Note* Venus Vasques MA - 02/15/2024 9:47 AM EDT AUA=9 [facility]04-01-2024 Nurse Note* Venus Vasques MA - 02/15/2024 9:47 AM EDT AUA=9 documented in this encounterShel[facility]11-30-2023 History of Present illness Narrative* Yuan Bartlett MD - 08/17/2023 10:15 AM EST [...] by: Yuan Bartlett MD cc: Nico Lino ([facility]) [address] [place], [place] [id number] Dr. Sotrey Portions of the above note extracted and edited from previous visit as well as active information included in the EMR. documented in this encounterShelby [facility]11-30-2023 Nurse Note* Katiana Acharya RN - 08/17/2023 10:07 AM EST AUA 7 Katiana Acharya RN documented in this encounterShel[facility]11-08-2023 Evaluation note* Encounter Date Diagnosis Assessment [...] CD-10 - D51.0) Continue supplement, recheck CBC [facility] Other 07-18-2023 Evaluation note* Encounter Date Diagnosis Assessment Notes Treatment Notes Treatment Clinical Notes Mar, Type 2 diabetes mellitus with hyperglycemia, without long-term current use of insulin (ICD-10 - E11.65) [facility] Other 03-14-2023 Evaluation note* Encounter Date Diagnosis [...] Pernicious anemia (ICD-10 - D51.0) B12 monthly [facility] Other 02-14-2023 Hospital Discharge instructions Patient Education [...] urethra. Follow these instructions at home: Take yzas-sly-zhivxdw and prescription medicines only as told by [...] 09/04/2006 Document Revised: 07/30/2019 Document Reviewed: 10/09/2017 [employer] Patient Education Contraqer. Follow Up Care 05/03/2022 11:28:51 With:DIALLO SHEEHAN, HENRIQUE Ortega, URL Address: [facility] Thania Ortega [facility] [place] [address] When:Within 18 Month(s) Comments:PSA [facility] [...] cancer. Irlanda Castro APRN.KEKE documented in this encounterShelby [facility]12-01-2022 History of Present illness Narrative* Yuan Bartlett [...] by: Yuan Bartlett MD cc: Nico Lino ([facility]) [address] [place] [address] Dr. Storey Portions of the above note extracted and edited from previous visit as well as active information included in the EMR. [facility]* Katiana Acharya RN - 08/18/2022 10:30 AM EST AUA 14 Katiana Acharya RN documented in this encounterS[facility] History of Present illness Narrative* Yuan Bartlett MD - 02/17/2022 9:58 AM EDT Radiation Oncology - Follow Up Note PATIENT NAME: Segun Johnson PATIENT DIAGNOSIS: Prostate adenocarcinoma, initial PSA 11.5, biopsy [place] score 4 + 3 = 7 (grade [...] Yuan Bartlett MD cc: Nico Lino (Mikhail) [address] [place] [address] Dr. Storey Portions of the above note extracted and edited from previous visit as well as active information included in the EMR. documented in this encounterS[facility]06-[facility]22 Nurse Note* Katiana Acharya RN - 02/17/2022 9:54 AM EDT AUA 10 Katiana Acharya RN [facility] Future Appointments Appointment Date:03/05/2024 11:00:00 AM Scheduled Provider:HENRIQUE LANDRUM PA-C Location:[facility] Appointment Type:URO Office Visit Diagnostic Tests Pending * PSA Total 11/01/22 [facility] evaluation note* Diagnosis Prostate cancer (HCC)- Primary Malignant neoplasm of prostate documented in this encounter [facility] note* Diagnosis Prostate cancer (HCC) Malignant neoplasm of prostate documented in this encounter [facility] note* Diagnosis Prostate cancer (HCC)- Primary Malignant neoplasm of prostate documented in this encounter [facility] noteNo [employer] Other Evaluation note* Diagnosis Malignant neoplasm of prostate (HCC)- Primary Malignant neoplasm of prostate documented in this encounter [facility] note* Diagnosis Onset Date Resolution Status ASHD (arteriosclerotic heart disease) acute Chronic venous insufficiency acute Diabetes mellitus with hyperglycemia acute Elevated cholesterol acute Primary hypertension acute Prostate cancer acute [facility] Work Phone: Evaluation note* Diagnosis Age-related nuclear cataract of both eyes- Primary documented in this encounter [facility]* Diagnosis Age-related nuclear cataract of both eyes documented in this encounter [facility]* Diagnosis Onset Date Resolution Status Admit Date ASHD (arteriosclerotic heart disease) acute July 30 10:57am Chronic venous insufficiency acute July 30, 2024 10:57am Diabetes mellitus with hyperglycemia acute July 30 10:57am Elevated cholesterol acute Nove mb 2023 10:57am Medicare annual wellness vis it, subsequent acute July 30 10:57am Primary hypertension acute Nove mb2023 10:57am Prostate cancer acute July 30, 2024 10:57am [facility] Work Phone: Evaluation note* Diagnosis Age-related nuclear cataract of both eyes- Primary [facility] encounter [facility]* Diagnosis Onset Date Resolution Status Admit Date Low back pain radiating to r ight leg acute November 21, 2024 9:54am Right hip pain acute November 21, 2024 9:54am [facility] Work Phone: Evaluation note* Diagnosis Onset [...] 10:41am Weight loss acute March 24 10:41am [facility] Work Phone: History general Narrative - [...] LAD/OM 2003 Hospitalization History SEE SURGICAL HX [employer] Other Hospital course Narrative No data available for this section [facility] Hospital Discharge instructions No data available for this section [facility] progress note No data available for this section [facility] reason for referral (narrative)No reason for referral [facility]Del[facility] Work Phone: Summary Purpose Family History [...] Low back pain radiating to right leg Mar 2024 9:54am Right hip pain November 21, 2024 9:54 am Chief Complaint Admit Date 4 mo f/u, A1C March 24, 2025 10:41 am Reason for Visit Admit Date ASHD (arteriosclerotic heart disease) Ju ly 2024 10:41am Chronic kidney disease March 24, 2025 10 :41am Chronic venous insufficiency March 24, 2 025 10:41am Diabetes mellitus with hyperglycemia Raphael [...] Weight loss April 16, 2025 1:26 pm Chief Complaint Admit Date 4 mo f/u, A1C March 24, 2025 10:41 am 3 Week F/U April 16, 2025 1:26 pm 6 week check up May 28, 2025 1:41pm Reason for Visit Admit Date ASHD (arteriosclerotic heart disease) Ju ly 2024 10:41am Chronic kidney disease March 24, 2025 10 :41am Chronic venous insufficiency March 24 025 10:41am Diabetes mellitus with hyperglycemia Mar 10:41am [...] 16, 2025 1:26pm Diabetes mellitus with hyperglycemia Raphael y 2024 1:26pm Elevated cholesterol April 16, 2025 1:2 6pm Pernicious anemia April 16, 2025 1:26 pm Primary hypertension April 16, 2025 1:2 6pm Prostate cancer April 16, 2025 1:26 pm Weight loss April 16, 2025 1:26 pm ASHD (arteriosclerotic heart disease) Se ptember 2024 1:41pm Chronic kidney disease May 28 1:41pm Chronic venous insufficiency May 192024 1:41pm Diabetes mellitus with hyperglycemia Sep tember 2024 1:41pm Elevated cholesterol May 28 1:41pm Pernicious anemia May 28, 2025 1:41pm Primary hypertension May 28 1:41pm Prostate cancer May 28, 2025 1:41pm Weight loss May 28, 2025 1:41pm Additional Source Comments (unrecognized sect ion and content) No Status Records FoundNo Status Records FoundNo Status Records FoundNo Status Records FoundNo Status Records Found INFORMATION SOURCE (unrecogn ized section and content) DATE CREATED AUTHOR 04/06/2018 [facility] DATE CREATED AUTHOR AUTHOR'S ORGANIZ ATION 01/09/2023 [facility] DATE CREATED AUTHOR AUTHOR'S ORGANIZ ATION 03/07/2024 [facility] DATE CREATED AUTHOR AUTHOR'S ORGANIZ ATION 05/16/[address] [facility] DATE CREATED AUTHOR AUTHOR'S ORGANIZ ATION 12/21/2024 [facility] Source Comments (unrecognize d section and content) In the event this informatio n is protected by the Federal Confidentiality of Alcohol and Drug Abuse Patient Records regulations: The Federal rules restrict any use of the information to criminally investigate or prosecute any alcohol or drug abuse patient.[facility] HospitalIn the event this information is protected by the Federal Confidentiality of Alcohol and Drug Abuse Patient Records regulations: The Federal rules restrict any use of the information to criminally investigate or prosecute any alcohol or drug abuse patient.[facility] HospitalIn the event this information is protected by the Federal Confidentiality of Alcohol and Drug Abuse Patient Records regulations: The Federal rules restrict any use of the information to criminally investigate or prosecute any alcohol or drug abuse patient.[facility] HospitalIn the event this information is protected by the Federal Confidentiality of Alcohol and Drug Abuse Patient Records regulations: The Federal rules restrict any use of the information to criminally investigate or prosecute any alcohol or drug abuse patient.[facility] HospitalIn the event this information is protected by the Federal Confidentiality of Alcohol and Drug Abuse Patient Records regulations: The Federal rules restrict any use of the information to criminally investigate or prosecute any alcohol or drug abuse patient.[facility] HospitalIn the event this information is protected by the Federal Confidentiality of Alcohol and Drug Abuse Patient Records regulations: The Federal rules restrict any use of the information to criminally investigate or prosecute any alcohol or drug abuse patient.[facility] HospitalIn the event this information is protected by the Federal Confidentiality of Alcohol and Drug Abuse Patient Records regulations: The Federal rules restrict any use of the information to criminally investigate or prosecute any alcohol or drug abuse patient.[facility] HospitalIn the event this information is protected by the Federal Confidentiality of Alcohol and Drug Abuse Patient Records regulations: The Federal rules restrict any use of the information to criminally investigate or prosecute any alcohol or drug abuse patient.[facility] Reason for Visit (unrecogniz ed section [...] November 21, 2024 End: November 21, 2024 Puppy Walker Relationship Specialty Start Date End Date Nico Lino, DO [address] [place] [facility] [place] [address] PCP - General Internal Medicine 02/10/21 Joseph Vasques Jr. [address] [place] [address] Urology 02/10/21 Puppy Walker Relationship Specialty Start Date End Date Holland Nico Ortega DO [address] [place] [facility] [place] [address] PCP - General Internal Medicine 02/10/21 Joseph Vasques Jr. [address] [place] [address] Urology 02/10/21 Puppy Walker Relationship Specialty Start Date End Date Nico Lino, DO [address] [place] [facility] [place] [address] PCP - General Internal Medicine 02/10/21 Joseph Vasques Jr. [address] [place] [address] Urology 02/10/21 Puppy Walker Relationship Specialty Start Date End Date Nico Lino DO [address] [place] [facility] [place] [address] PCP - General Internal Medicine 02/10/21 Joseph Vasques Jr. [address] [place] [id number] Urology 02/10/21 Puppy Walker Relationship Specialty Start Date End Date Nico Lino DO [address] [place] [address] PCP - General Internal Medicine 02/10/21 Joseph Vasques Jr. [address] [place] [address] Urology 02/10/21 Team Status: Active Member Role [...] March 27, 2024 End: March 27, 2024 Puppy Walker Relationship Specialty Start Date End Date Nico Lino DO [address] [place] [address] PCP - General Internal Medicine 02/10/21 Joseph Vasques Jr. [address] [place] [address] Urology 02/10/21 Puppy Walker Relationship Specialty Start Date End Date Nico Lino MD [address] [place] [address] PCP - General Internal Medicine 05/14/24 Puppy Walker Relationship Specialty Start Date End Date Nico Lino MD [address] [place] [address] PCP - General Internal Medicine 05/14/24 Team Status: Active Member Role Status Dates Nico Lino DO Primary Care Provide r, Attending Provider Active Start: July 24, 2024 Team Status: Inactive Member Role Status Dates Nico Lino DO Primary Care Provide r, Attending Provider Active Start: July 30, 2024 End: July 30, 2024 Puppy Walker Relationship Specialty [place] [address] [place] [id number] PCP - General Internal Medicine 02/10/21 Joseph Vasques Jr. [address] [place] [address] Urology 02/10/21 Puppy Walker Relationship Specialty Start Date End Date Nico Lino MD [address] [place] [address] PCP - General Internal Medicine 05/14/24 Team Status: Inactive Member Role Status Dates Nico Lino DO Primary Care Provider Active Start: April 16, 2025 End: April 16, 2025 Nico Lino DO Attending Provider Active Sta rt: April 16, 2025 End: April 16, 2025 Team Status: Inactive Member Role Status Dates Nico Lino DO Primary Care Provider Active Start: May 28, 2025 End: May 28, 2025 Nico Lino DO Attending Provider Active Sta rt: May 28, 2025 End: May 28, 2025 Goals (unrecognized section and content) Goals [...] BE BASED ON THE PRIMARY CLINICAL RECORDS. [facility] [employer] [facility] provides no warranty or guarantee of the accuracy or completeness of information in this document.
[2025-06-02 10:29] LABS: Prostate Specific Antigen Dx 2.75 ng/mL (<=4.00)
== END 2025-06-02 08:24 | disposition home or self-care (01) ==
LOC: LAB 08:24
PROVIDERS: PCP Internal Medicine; Visit Provider Radiology Radiation Oncology
DX: C61 Malignant neoplasm of prostate (principal)
CPT/HCPCS: 36415; 84153; 84403

== ENCOUNTER 2025-06-02 08:26 | Outpatient (OUT) | payer MEDICARE, SELFPAY ==
--- OUTSIDE RECORDS SUMMARY | 2025-06-02 08:36 | XMS_ITS | CCD ---
Author Organization [facility] Care Team Providers Care Water Pollution Specialist Name Role Phone PHYSICIAN, DEFAULT Unavailable Unavailable PHYSICIAN, DEFAULT Unavailable Unavailable HOLLAND, NICO Unavailable Unavailable Nico Lino DO Primary Care Provider Joseph Vasques Jr. Unavailable Nico Lino DO Primary Care Provider Joseph Vasques Jr. Unavailable NICO LINO Primary Care Physician [phone] Holland, Nico Unavailable HOLLAND, DR MAS Admitting [...] DR MAS Primary Care Unavailable ADOLFO, DR VIKCI [employer] Unavailable HOLLAND, DR MAS Primary [...] Containing Products Drug allergy (disorder) 9 [facility] (3 sources) Seafood; Translations: [Seafood] Drug allergy Itching [facility] (1 source) patient allergy list reviewed by nurse or physicia Propensity to adverse reactions Comment:Done [employer] Other (1 source) Shrimp product; Translations: [Shrimp] Propensity to adverse reactions (disorder) [facility] (1 source) No Known Medication Allergies; Translations: [No Known Medication Allergies] Propensity to adverse reactions (disorder) [facility] Medications Current Medications Medication Drug [...] Daily, # 30 cap(s), Refills(s) 11, Pharmacy: [id number], 173, cm, 11/02/21 11:02:00 [...] object(s), not elsewhere classified, initial encounter; Translations: [[facility] OTH SHRP OB NOT ELSW CLASS [...] sources) H/O: high risk medication; Translations: [Other shelter (current) drug therapy] Episodic Other aftercare (1 source) Other shelter (current) drug therapy; Translations: [OTH GAS SPECIALIST CURRENT DRUG THERAPY] Onset: 01-09-2023 Episodic Other aftercare (1 source) [facility] (current) use of aspirin; Translations: [GAS SPECIALIST CURRENT USE OF ASPIRIN] Onset: 01-09-2023 Episodic Other aftercare (1 source) 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; Translations: [GAS SPECIALIST USE ORAL HYPOGLYCEMIC DX] Onset: 01-09-2023 Episodic Other aftercare (1 source) Long-term current use of drug therapy; Translations: [Other shelter (current) drug therapy] Episodic Other diseases of [...] (Bld) [#/Vol] 0.2 10 3/uL High 0.0-0.1 [facility] Basophils/100 WBC Auto (Bld) Ordered By: Nico Lino on 03-24-2025 Basophils/100 WBC (Bld) 1.6 % 0.2-2.0 [facility] Eosinophils/100 WBC Auto (Bl d)Ordered By: Nico Lino on 03-24-2025 Eosinophils/100 WBC (Bld) 5.4 % 0.9-7.0 [facility] Erythrocyte distribution wid th Auto (RBC) [Ratio]Ordered By: Nico Lino on 03-24-2025 Erythrocyte distribution width (RBC) [Ratio] 15.3 % High 11.0-15.0 [facility] Estimated glomerular filtrat ion rate (GFR) non- AmericanOrdered By: Nico Lino on 03-24-2025 GFR/1.73 sq M.predicted among non-blacks MDRD (S/P/Bld) [Vol rate/Area] 38 mL/min/{1.73_m2} Low >=60 mL/min/1.73m 2 [facility] Globulin Calc (S) [Mass/Vol] Ordered By: Nico Lino on 03-24-2025 Globulin (S) [Mass/Vol] 4.4 g/dL [facility] Hematocrit Auto (Bld) [Volum e fraction]Ordered By: Nico Lino on 03-24-2025 Hematocrit (Bld) [Volume fraction] 36.7 % Low 42.0-54.0 [facility] Hemoglobin [Mass/volume] in BloodOrdered By: Nico Lino on 03-24-2025 Hemoglobin (Bld) [Mass/Vol] 12.2 g/dL Low 14.0-18.0 [facility] Laboratory - Chemistry and C hemistry - challengeOrdered By: Nico Lino on 03-24-2025 Albumin [Mass/Vol] 3.4 g/dL 3.4-5.0 [facility] ALP [Catalytic activity/Vol] 90 U/L 46-116 [facility] ALT [Catalytic activity/Vol] 25 U/L 16-63 [facility] Amylase [Catalytic activity/Vol] 62 U/L 25-115 [facility] AST [Catalytic activity/Vol] 18 U/L 15-37 [facility] Bilirubin [Mass/Vol] 0.3 mg/dL 0.2-1.0 [facility] Calcium [Mass/Vol] 9.0 mg/dL 8.5-10.1 [facility] Chloride [Moles/Vol] 107 mmol/L 98-107 [facility] CO2 [Moles/Vol] 21.2 mmol/L 21.0-32.0 [facility] Creatinine [Mass/Vol] 1.75 mg/dL High 0.70-1.[address] [facility] Ferritin [Mass/Vol] 174.0 ng/mL 26.0-388.0 [facility] GFR/1.73 sq M.predicted MDRD (S/P/Bld) [Vol rate/Area] 46 mL/min/{1.73_m2} Low >=60 mL/min/1.73m 2 [facility] Glucose [Mass/Vol] 108 mg/dL High 74-106 [facility] Lipase [Catalytic activity/Vol] 46.0 U/L 16.0-77.0 [facility] Potassium [Moles/Vol] 4.7 mmol/L 3.5-5.[address] [facility] Protein [Mass/Vol] 7.8 g/dL 6.4-8.2 [facility] Sodium [Moles/Vol] 141 mmol/L 136-145 [facility] Urea nitrogen [Mass/Vol] 34.0 mg/dL High 7.0-18.0 [facility] Urea nitrogen/Creatinine [Mass ratio] 19.4 mg/mg [facility] Laboratory - Hematology and Cell countsOrdered By: Nico Lino on 03-24-2025 Immature granulocytes/100 WBC (Bld) 0.2 % 0.0-0.5 [facility] Leukocytes [#/volume] correc opal for nucleated erythrocytes in Blood by Automated counOrdered By: Nico Lino on 03-24-2025 WBC corrected for nucl RBC Auto (Bld) [#/Vol] 10.0 10 3/uL 4.0-11.0 [facility] Lymphocytes Auto (Bld) [#/Vo l]Ordered By: Nico Lino on 03-24-2025 Lymphocytes (Bld) [#/Vol] 1.8 10 3/uL 1.2-3.8 [facility] Lymphocytes/100 WBC Auto (Bl d)Ordered By: Nico Lino on 03-24-2025 Lymphocytes/100 WBC (Bld) 17.5 % Low 20.5-60.0 [facility] MCH Auto (RBC) [Entitic mass ]Ordered By: Nico Lino on 03-24-2025 MCH (RBC) [Entitic mass] 30.0 pg 25.9-34.0 [facility] MCHC Auto (RBC) [Mass/Vol]Or dered By: Nico Lino on 03-24-2025 MCHC (RBC) [Mass/Vol] 33.2 g/dL 29.9-35.[address] [facility] MCV Auto (RBC) [Entitic vol] Ordered By: Nico Lino on 03-24-2025 MCV (RBC) [Entitic vol] 90.4 fL 80.0-94.0 [facility] Monocytes Auto (Bld) [#/Vol] Ordered By: Nico Lino on 03-24-2025 Monocytes (Bld) [#/Vol] 0.8 10 3/uL 0.3-0.8 [facility] Monocytes/100 WBC Auto (Bld) Ordered By: Nico Lino on 03-24-2025 Monocytes/100 WBC (Bld) 7.6 % 1.7-12.0 [facility] Neutrophils Auto (Bld) [#/Vo l]Ordered By: Nico Lino on 03-24-2025 Neutrophils (Bld) [#/Vol] 6.8 10 3/uL High 1.4-6.5 [facility] Neutrophils/100 WBC Auto (Bl d)Ordered By: Nico Lino on 03-24-2025 Neutrophils/100 WBC (Bld) 67.7 % 43.0-75.0 [facility] No Panel InformationOrdered By: Nico Lino on 03-24-2025 Eosinophils # (Auto) 0.5 10 3/uL 0.0-0.[address] [facility] Folate 25.80 ng/mL 8.60-58.90 [facility] Immature Granulocyte # (Auto) 0.02 10 3/uL 0.00-0.03 [facility] Vitamin B12 Level >2000 pg/mL Abnormal 232-1245 [facility] Comment on above: Performed at: [address] [id number] Director: Rocco Lopez PhD, Phone: [phone] Platelet mean volume Auto (B ld) [Entitic vol]Ordered By: Nico Lino on 03-24-2025 Platelet mean volume (Bld) [Entitic vol] 11.2 fL 9.5-13.5 [facility] Platelets Auto (Bld) [#/Vol] Ordered By: Nico Lino on 03-24-2025 Platelets (Bld) [#/Vol] 398 10 3/uL 150-450 [facility] RBC Auto (Bld) [#/Vol]Ordere d By: Nico Lino on 03-24-2025 RBC (Bld) [#/Vol] 4.06 10 6/uL Low 4.70-6.10 [facility] Serum or plasma albumin/glob ulin mass ratioOrdered By: Nico Lino on 03-24-2025 Albumin/Globulin [Mass ratio] 0.8 {ratio} [facility] Serum or plasma anion gap de terminationOrdered By: Nico Lino on 03-24-2025 Anion gap [Moles/Vol] 17.5 mmol/L [facility] Glucose mean value [Mass/vol ume] in Blood Estimated from glycated hemoglobinOrdered By: Nico Lino on 03-18-2025 Average glucose Estimated from glycated hemoglobin (Bld) [Mass/Vol] 163 mg/dL [facility] Hemoglobin A1c percentageOrd ered By: Nico Lino on 03-18-2025 HbA1c (Bld) [Mass fraction] 7.3 % High 4.5-6.2 [facility] Comment on above: ADA RECOMMENDED LIMI T 4.0 - 6.0ADA THERAPEUTIC TARGET < 7.0ACTION SUGGESTED> 7.0 CNOVon 12-10-2024 CNOV Office Visit (RADTSA) ---- SEGUN JOHNSON ([id number]) 1945 M Date Time Provider Department 12/10/24 [...] ASSESSMENT/PLAN: Prostate adenocarcinoma, 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 Clinically doing well. PSA with minimal spinning frame changer the last 3 to 4 months. Has risen over the last 12 months still likely related to testosterone recovery after prior ADT. Recommend continued close observation. If continues to climb consider PSMA PET. Signed by: Yuan Bartlett MD cc: Nico Lino ([facility]) [address] [place] [address] Portions of the above note extracted and edited from previous visit as well as active information included in the EMR. Allergies As of Date: 12/10/2024 (No Known Allergies) Date Reviewed: 12/10/2024 Reviewed by: Katiana Acharya RN - Fully Assessed Reason for Visit: Prostate Cancer [590] Primary Visit Diagnosis:Cancer of prostate w/med recur risk (T2b-c or Urania 7 or PSA 10-20) ([facility]) [C61] Order(s):PSA (OUTSIDE) [7992976] Order #: [id number] PROSTATE-SPECIFIC ANTIGEN DIAGNOSTIC [SQPSA] Order #: [id number] FUTURE TESTOSTERONE, TOTAL BY IMMUNOASSAY (ADULT MALES, OR INDIVIDUALS ON TESTOSTERONE THERAPY) [SQTESTO] Order #: [id number] FUTURE Prescriptions as of 12/17/2024 - folic [...] - glim (more content not included)... Normal [facility] PSA (OUTSIDE)on 11-21-2024 [facility] CNOVon 08-09-2024 CNOV Office Visit (RADTSA) ---- SEGUN JOHNSON ([id number]) 1945 M Date Time Provider Department 08/09/24 [...] DIAGNOSIS: Prostate adenocarcinoma, initial PSA 11.5, biopsy Urania score 4 + 3 = 7 (grade [...] ASSESSMENT/PLAN: Prostate adenocarcinoma, initial PSA 11.5, biopsy Urania score 4 + 3 = 7 (grade [...] by: Yuan Bartlett MD cc: Nico Lino ([facility]) [address] [place], [place] [id number] Dr. Storey Portions of the above note extracted and edited from previous visit as well as active information included in the EMR. Referring Provider: Yuan BARTLETT [[id number]] Allergies As of Date: 08/09/2024 (No Known Allergies) Date Reviewed: 08/09/2024 Reviewed by: Jillian Waddell LPN - Fully Assessed Reason for Visit: Prostate Cancer [590] Primary Visit Diagnosis:Cancer of prostate w/med recur risk (T2b-c or Asaf 7 or PSA 10-20) ([facility]) [C61] Order(s):PSA (OUTSIDE) [[id number]] Order #: [id number] PROSTATE-SPECIFIC ANTIGEN DIAGNOSTIC [SQPSA] Order #: [id number] FUTURE TESTOSTERONE, TOTAL BY IMMUNOASSAY (ADULT MALES, OR INDIVIDUALS ON TESTOSTERONE THERAPY) [SQTESTO] Order #: [id number] FUTURE Prescriptions as of 08/09/2024 - folic [...] - l (more content not included)... Normal [facility] PSA (OUTSIDE)on 07-30-2024 [facility] US Eye+Orbit - bilateralon 0 05-14-2024 Diagnosis: Cataract both eyes (OU) Testing Indication: Performed for preop measurements in the determination of an intraocular lens (IOL) for both eyes (OU) Test Reliability: Good quality both eyes (OU) Interpretation: Good measurements for intraocular lens (IOL) calculation purposes. Calculation made for both eyes (OU). [facility] Radiology Study observation (narrative) [facility] Glucose mean value [Mass/vol ume] in Blood Estimated from glycated hemoglobinon 03-26-2024 Average glucose Estimated from glycated hemoglobin (Bld) [Mass/Vol] 163 mg/dL [facility] Laboratory - Hematology and Cell countson 03-26-2024 HbA1c (Bld) [Mass fraction] 7.3 % High 4.5-6.2 [facility] Comment on above: ADA RECOMMENDED LIMI T 4.0 - 6.0ADA THERAPEUTIC TARGET < 7.0ACTION SUGGESTED> 7.0 Consultation Noteon 02-16-20 Consultation Note [id number] Normal [facility] CNOVon 02-15-2024 CNOV Office Visit (RADTSA) ---- SEGUN JOHNSON ([id number]) 1945 M Date Time Provider Department 02/15/24 [...] by: Yuan Bartlett MD cc: Nico Lino ([facility]) [id number] Storey Portions of the above note extracted and edited from previous visit as well as active information included in the EMR. Referring Provider: Yuan BARTLETT [[id number]] Allergies As of Date: 02/15/2024 (No Known Allergies) Date Reviewed: 02/15/2024 Reviewed by: Venus Vasques MA - Fully Assessed Reason for Visit: Prostate Cancer [590] Cmt: Follow up Primary Visit Diagnosis:Cancer of prostate w/med recur risk (T2b-c or Urania 7 or PSA 10-20) (H[facility]) [C61] Order(s):PSA (OUTSIDE) [[id number]] Order #: [id number] PROSTATE-SPECIFIC ANTIGEN DIAGNOSTIC [SQPSA] Order #: [id number] FUTURE Prescriptions as of 02/15/2024 - cyanocobalamin, [...] for Encounter Date Provider Department Center 02/15/2024 [id number] BARTLETT Encounter Status:Closed by Yuan BARTLETT on 02/15/[address] [facility] No Panel Informationon 02-13 Prostate Specific Antigen Total 0.61 ng/mL <=4.00 [facility] PSA (OUTSIDE)on 02-14-2024 [facility] GLYCOHEMOGLOBIN A1Con 2022 ADA RECOMMENDATION SEE BELOW Normal [facility] Comment on above: Result Comment: ADA RECOMMENDED LIMIT 4.0 - 6.0 ADA THERAPEUTIC TARGET < 7.0 ACTION SUGGESTED > 7.0 Performed By: #### A 1C #### [facility] [address] [place] [address] Dr. Radha Brown Glucose [Mass/Vol] 186 mg/dL Normal [facility] Comment on above: Performed By: #### A 1C #### [facility] [address] [place] [address] Dr. Radha Brown HbA1c (Bld) [Mass fraction] 8.1 % Critically high 4.5-6.2 [facility] Comment on above: Performed By: #### A 1C #### [facility] [address] [place] [address] Dr. Radha Brown CBC AUTO DIFFon 07-29-2022 BASO # 0.1 103/ul Normal 0.0-0.1 [facility] Comment on above: Performed By: #### C BC #### [facility] [address] [place] [address] Dr. Radha Brown Basophils/100 WBC (Bld) 0.9 % Normal 0.2-2.0 [facility] Comment on above: Performed By: #### C BC #### [facility] [address] [place] [address] Dr. Radha Brown EO # 0.5 103/ul Normal 0.0-0.7 [facility] Comment on above: Performed By: #### C BC #### [facility] [address] [place] [address] Dr. Radha Brown Eosinophils/100 WBC (Bld) 5.5 % Normal 0.9-7.0 [facility] Comment on above: Performed By: #### C BC #### [facility] [address] [place] [address] Dr. Radha Brown Erythrocyte distribution width (RBC) [Ratio] 15.0 % Normal 11.0-15.0 [facility] Comment on above: Performed By: #### C BC #### [facility] [address] [place] [address] Dr. Radha Brown Hematocrit (Bld) [Volume fraction] 35.6 % Critically low 42.0-54.0 [facility] Comment on above: Performed By: #### C BC #### [facility] [address] [place] [address] Dr. Radha Brown Hemoglobin (Bld) [Mass/Vol] 11.8 g/dL Critically low 14.0-18.0 [facility] Comment on above: Performed By: #### C BC #### [facility] [address] [place] [address] Dr. Radha Brown IG # 0.05 10e3/ul Critically high 0.00-0.03 [facility] Comment on above: Performed By: #### C BC #### [facility] [address] [place] [address] Dr. Radha Brown IG % 0.5 % Normal 0.0-0.5 [facility] Comment on above: Performed By: #### C BC #### [facility] [address] [place] [address] Dr. Radha Brown LYMPH # 1.8 103/ul Normal 1.2-3.8 [facility] Comment on above: Performed By: #### C BC #### [facility] [address] [place] [address] Dr. Radha Brown Lymphocytes/100 WBC (Bld) 19.3 % Critically low 20.5-60.0 [facility] Comment on above: Performed By: #### C BC #### [facility] [address] [place] [address] Dr. Radha Brown MANUAL DIFF REQ NO Normal [facility] Comment on above: Performed By: #### C BC #### [facility] [address] [place] [address] Dr. Radha Brown MCH (RBC) [Entitic mass] 29.2 pg Normal 25.9-34.0 [facility] Comment on above: Performed By: #### C BC #### [facility] [address] [place] [address] Dr. Radha Brown MCHC (RBC) [Mass/Vol] 33.1 g/dL Normal 29.9-35.2 [facility] Comment on above: Performed By: #### C BC #### [facility] [address] [place] [address] Dr. Radha Brown MCV (RBC) [Entitic vol] 88.1 fL Normal 80.0-94.0 [facility] Comment on above: Performed By: #### C BC #### [facility] [address] [address] [address] Radha Brown MONO # 0.6 103/ul Normal 0.3-0.8 [facility] Comment on above: Performed By: #### C BC #### [facility] [address] [address] [address] Radha Brown Monocytes/100 WBC (Bld) 6.4 % Normal 1.7-12.0 [facility] Comment on above: Performed By: #### C BC #### [facility] [address] [address] [address] Radha Brown NEUT # 6.4 103/ul Normal 1.4-6.5 [facility] Comment on above: Performed By: #### C BC #### [facility] [address] [place] [address] Dr. Radha Brown Neutrophils/100 WBC (Bld) 67.4 % Normal 43.0-75.0 [facility] Comment on above: Performed By: #### C BC #### [facility] [address] [address] [address] Radha Brown Platelet mean volume (Bld) [Entitic vol] 9.2 fL Critically low 9.5-13.5 [facility] Comment on above: Performed By: #### C BC #### [facility] [address] [place] [address] Dr. Radha Brown PLT 232 103/ul Normal 150-450 [facility] Comment on above: Performed By: #### C BC #### [facility] [address] [place] [address] Dr. Radha Brown RBC 4.04 106/ul Critically low 4.70-6.10 [facility] Comment on above: Performed By: #### C BC #### [facility] [address] [address] [address] Radha Brown WBC 9.5 103/ul Normal 4.0-11.0 [facility] Comment on above: Performed By: #### C BC #### [facility] [address] [address] [address] Radha Brown FERRITINon 07-29-2022 Ferritin [Mass/Vol] 164.0 ng/mL Normal 26.0-388.0 [facility] Comment on above: Performed By: #### P SAD, FOL, FERR, FETIBC #### [facility] [address] [address] [address] Radha Brown FOLATEon 07-29-2022 FOLATE 7.60 ng/mL Critically low 8.60-58.90 [facility] Comment on above: Performed By: #### P SAD, FOL, FERR, FETIBC #### [facility] [address] [address] [address] Radha Brown GLYCOHEMOGLOBIN A1Con 2021 ADA RECOMMENDATION SEE BELOW Normal [facility] Comment on above: Result Comment: ADA RECOMMENDED LIMIT 4.0 - 6.0 ADA THERAPEUTIC TARGET < 7.0 ACTION SUGGESTED > 7.0 Performed By: #### A 1C #### [facility] [address] [place] [address] Dr. Radha Brown Glucose [Mass/Vol] 134 mg/dL Normal [facility] Comment on above: Performed By: #### A 1C #### [facility] [address] [address] [address] Radha Brown HbA1c (Bld) [Mass fraction] 6.3 % Critically high 4.5-6.2 [facility] Comment on above: Performed By: #### A 1C #### [facility] [address] [address] [address] Radha Brown IRON AND TIBCon 07-29-2022 % SATURATION 22.1 % Normal [facility] Comment on above: Performed By: #### P SAD, FOL, FERR, FETIBC #### [facility] [address] [address] [address] Radha Brown Iron [Mass/Vol] 78.0 ug/dL Normal 65.0-175.0 [facility] Comment on above: Performed By: #### P SAD, FOL, FERR, FETIBC #### [facility] [address] [address] [address] Radha Brown TIBC DIRECT 353.0 ug/dL Normal 250.0-450.0 [facility] Comment on above: Performed By: #### P SAD, FOL, FERR, FETIBC #### [facility] [address] [address] [address] Radha Brown LIPID PROFILEon 07-29-2022 CHOL-HDL RATIO NORM SEE BELOW Normal [facility] Comment on above: Result Comment: 3.3 - 4.4 LOW RISK 4.4 - 7.1 AVERAGE RISK 7.1 - 11.0 MODERATE RISK >11.0 HIGH RISK Performed By: #### P SAD, FOL, FERR, FETIBC #### [facility] [address] [address] [address] Radha Brown Cholesterol [Mass/Vol] 137 mg/dL Normal <=200 Th [facility] Comment on above: Performed By: #### P SAD, FOL, FERR, FETIBC #### [facility] [address] [address] [address] Radha Brown Cholesterol in HDL [Mass/Vol] 37 mg/dL Critically low 40-60 [facility] Comment on above: Performed By: #### P SAD, FOL, FERR, FETIBC #### [facility] [address] [address] [address] Radha Brown Cholesterol in LDL [Mass/Vol] 67.0 mg/dL Normal [facility] Comment on above: Performed By: #### P SAD, FOL, FERR, FETIBC #### [facility] [address] [address] [address] aRdha Brown Cholesterol.total/Choles terol in HDL [Mass ratio] 3.7 {ratio} Normal [facility] Comment on above: Performed By: #### P SAD, FOL, FERR, FETIBC #### [facility] [address] [address] [address] Radha Brown HDL NORMAL > or = 60 mg/dl - LOW CARDIOVASCULAR RISK <40 mg/dl - HIGH CARDIOVASCULAR RISK Normal [facility] Comment on above: Performed By: #### P SAD, FOL, FERR, FETIBC #### [facility] [address] [address] [address] Radha Brown LDL CALC NORMAL SEE BELOW Normal [facility] Comment on above: Result Comment: <100 mg/dl OPTIMAL 100 - 129 mg/dl NEAR OR ABOVE OPTIMAL 130 - 159 mg/dl BORDERLINE HIGH 160 - 189 mg/dl HIGH >190 mg/dl VERY HIGH Performed By: #### P SAD, FOL, FERR, FETIBC #### [facility] [address] [address] [address] Radha Brown Triglyceride [Mass/Vol] 165 mg/dL Critically high <=150 [facility] Comment on above: Performed By: #### P SAD, FOL, FERR, FETIBC #### [facility] [address] [address] [address] Radha Brown VLDL CALC 33.0 mg/dL Normal [facility] Comment on above: Performed By: #### P SAD, FOL, FERR, FETIBC #### [facility] [address] [address] [address] Radha Brown MICROALBUMIN, RAND URon 07-19 mALB <1.3 Normal <=30.0 [facility] Comment on above: Performed By: #### M ALBR #### [facility] [address] [place] [address] Dr. Radha Brown PROF CHEM 8 (BAS METB)on Anion gap [Moles/Vol] 9.1 mmol/L Normal [facility] [facility] Comment on above: Performed By: #### P SAD, FOL, FERR, FETIBC #### [facility] [address] [address] [address] Radha Brown Calcium [Mass/Vol] 8.6 mg/dL Normal 8.5-10.1 [facility] Comment on above: Performed By: #### P SAD, FOL, FERR, FETIBC #### [facility] [address] [address] [address] Radha Brown Chloride [Moles/Vol] 106 mmol/L Normal 98-107 [facility] Comment on above: Performed By: #### P SAD, FOL, FERR, FETIBC #### [facility] [address] [address] [address] Radha Brown CO2 [Moles/Vol] 27.1 mmol/L Normal 21.0-32.0 [facility] Comment on above: Performed By: #### P SAD, FOL, FERR, FETIBC #### [facility] [address] [address] [address] Radha Brown Creatinine [Mass/Vol] 1.19 mg/dL Normal 0.70-1.30 [facility] Comment on above: Performed By: #### P SAD, FOL, FERR, FETIBC #### [facility] [address] [place] [address] Dr. Radha Brown EGFR-AF [place]IZ[place] >60 Normal >=60 [facility] Comment on above: Performed By: #### P SAD, FOL, FERR, FETIBC #### [facility] [address] [place] [address] Dr. Radha Brown EGFR-NON AF [place] 59 mL/min/1.73m2 Critically low >=60 [facility] Comment on above: Performed By: #### P SAD, FOL, FERR, FETIBC #### [facility] [address] [address] [address] Radha Brown Glucose [Mass/Vol] 137 mg/dL Critically high 74-106 [facility] Comment on above: Performed By: #### P SAD, FOL, FERR, FETIBC #### [facility] [address] [address] [address] Radha Brown Potassium [Moles/Vol] 4.2 mmol/L Normal 3.5-5.1 [facility] Comment on above: Performed By: #### P SAD, FOL, FERR, FETIBC #### [facility] [address] [address] [address] Radha Brown Sodium [Moles/Vol] 138 mmol/L Normal 136-145 [facility] Comment on above: Performed By: #### P SAD, FOL, FERR, FETIBC #### [facility] [address] [address] [address] Radha Brown Urea nitrogen [Mass/Vol] 22.0 mg/dL Critically high 7.0-18 .0 [facility] Comment on above: Performed By: #### P SAD, FOL, FERR, FETIBC #### [facility] [address] [address] [address] Radha Brown Urea nitrogen/Creatinine [Mass ratio] 18.5 mg/mg Normal [facility] Comment on above: Performed By: #### P SAD, FOL, FERR, FETIBC #### [facility] [address] [place] [address] Dr. Radha Brown GLYCOHEMOGLOBIN A1Con 2021 ADA RECOMMENDATION SEE BELOW Normal [facility] Comment on above: Result Comment: ADA RECOMMENDED LIMIT 4.0 - 6.0 ADA THERAPEUTIC TARGET < 7.0 ACTION SUGGESTED > 7.0 Performed By: #### A 1C #### [facility] [address] [place] [address] Dr. Radha Brown Glucose [Mass/Vol] 154 mg/dL Normal [facility] Comment on above: Performed By: #### A 1C #### [facility] [address] [place] [address] Dr. Radha Brown HbA1c (Bld) [Mass fraction] 7.0 % Critically high 4.5-6.2 [facility] Comment on above: Performed By: #### A 1C #### [facility] [address] [place] [address] Dr. Radha Brown Vital Signs Date Time Vital Sign Value Performing Clinician Facility 05-28-2025 13:50-0400 Body height 175.26 cm Pounce Work Phone: [facility] 05-28-2025 13:50-0400 Body mass index (BMI) [Ratio] 28 kg/m2 Pounce Work Phone: [facility] 05-28-2025 13:50-0400 Body weight 85.95 kg Nico Ball DO Work Phone: [facility] 05-28-2025 13:50-0400 Diastolic blood pressure 71 mm[Hg] Nico Ball DO Work Phone: [facility] 05-28-2025 13:50-0400 Heart rate 60 /min Nico Ball DO Work Phone: [facility] 05-28-2025 13:50-0400 Respiratory rate 12 /min Nico Ball DO Work Phone: [facility] 05-28-2025 13:50-0400 Systolic blood pressure 106 mm[Hg] Nico Ball DO Work Phone: [facility] 04-16-2025 13:34-0400 Body height 175.26 cm Nico Ball DO Work Phone: [facility] 04-16-2025 13:34-0400 Body mass index (BMI) [Ratio] 27.6 kg/m2 Nico Ball DO Work Phone: [facility] 04-16-2025 13:34-0400 Body weight 84.93 kg Nico Ball DO Work Phone: [facility] 04-16-2025 13:34-0400 Diastolic blood pressure 52 mm[Hg] Nico Ball DO Work Phone: [facility] 04-16-2025 13:34-0400 Heart rate 88 /min Nico Ball DO Work Phone: [facility] 04-16-2025 13:34-0400 Respiratory rate 12 /min Nico Ball DO Work Phone: [facility] 04-16-2025 13:34-0400 Systolic blood pressure 101 mm[Hg] Nico Ball DO Work Phone: [facility] 03-24-2025 11:15-0400 Body height 175.26 cm Nico Ball DO Work Phone: [facility] 03-24-2025 11:15-0400 Body mass index (BMI) [Ratio] 28 kg/m2 Nico Ball DO Work Phone: [facility] 03-24-2025 11:15-0400 Body weight 85.95 kg Nico Ball DO Work Phone: [facility] 03-24-2025 11:15-0400 Diastolic blood pressure 62 mm[Hg] Nico Ball DO Work Phone: [facility] 03-24-2025 11:15-0400 Heart rate 58 /min Nico Ball DO Work Phone: [facility] 03-24-2025 11:15-0400 Respiratory rate 18 /min Nico Ball DO Work Phone: [facility] 03-24-2025 11:15-0400 Systolic blood pressure 96 mm[Hg] Nico Ball DO Work Phone: [facility] 12-10-2024 14:34-0400 Body mass index (BMI) [Ratio] 29.46 kg/m2 ANATOLY Bartlett MD Work Phone: [facility] 12-10-2024 14:34-0400 Body temperature 96.49 [degF] ANATOLY Bartlett MD Work Phone: [facility] 12-10-2024 14:34-0400 Body weight 91.8 kg ANATOLY Bartlett MD Work Phone: [facility] 12-10-2024 14:34-0400 Diastolic blood pressure 69 mm[Hg] ANATOLY Bartlett MD Work Phone: [facility] 12-10-2024 14:34-0400 Heart rate 60 /min ANATOLY Bartlett MD Work Phone: [facility] 12-10-2024 14:34-0400 Respiratory rate 18 /min ANATOLY Bartlett MD Work Phone: [facility] 12-10-2024 14:34-0400 SaO2% (BldA) [Mass fraction] 97 % ANATOLY Bartlett MD Work Phone: [facility] 12-10-2024 14:34-0400 Systolic blood pressure 112 mm[Hg] ANATOLY Bartlett MD Work Phone: [facility] 11-21-2024 09:57-0500 Body height 175.26 cm [facility] 11-21-2024 09:57-0500 Body mass index (BMI) [Ratio] 29.9 kg/m2 [facility] 11-21-2024 09:57-0500 Body weight 92.13 kg [facility] 11-21-2024 09:57-0500 Diastolic blood pressure 70 mm[Hg] [facility] 11-21-2024 09:57-0500 Heart rate 65 /min [facility] 11-21-2024 09:57-0500 Respiratory rate 14 /min [facility] 11-21-2024 09:57-0500 SaO2% (BldA) [Mass fraction] 95 % [facility] 11-21-2024 09:57-0500 Systolic blood pressure 124 mm[Hg] [facility] 08-09-2024 09:14-0500 Body mass index (BMI) [Ratio] 30.81 kg/m2 ANATOLY Bartlett MD Work Phone: [facility] 08-09-2024 09:14-0500 Body temperature 97.39 [degF] ANATOLY Bartlett MD Work Phone: [facility] 08-09-2024 09:14-0500 Body weight 96 kg ANATOLY Bartlett MD Work Phone: [facility] 08-09-2024 09:14-0500 Diastolic blood pressure 62 mm[Hg] ANATOLY Bartlett MD Work Phone: [facility] 08-09-2024 09:14-0500 Heart rate 70 /min ANATOLY Bartlett MD Work Phone: [facility] 08-09-2024 09:14-0500 Respiratory rate 16 /min ANATOLY Bartlett MD Work Phone: [facility] 08-09-2024 09:14-0500 SaO2% (BldA) [Mass fraction] 97 % ANATOLY Bartlett MD Work Phone: [facility] 08-09-2024 09:14-0500 Systolic blood pressure 105 mm[Hg] ANATOLY Bartlett MD Work Phone: [facility] 07-30-2024 11:20-0500 Body height 175.26 cm [facility] 07-30-2024 11:20-0500 Body mass index (BMI) [Ratio] 31.3 kg/m2 [facility] 07-30-2024 11:20-0500 Body weight 96.27 kg [facility] 07-30-2024 11:20-0500 Diastolic blood pressure 70 mm[Hg] [facility] 07-30-2024 11:20-0500 Heart rate 62 /min [facility] 07-30-2024 11:20-0500 Respiratory rate 12 /min [facility] 07-30-2024 11:20-0500 Systolic blood pressure 111 mm[Hg] [facility] 03-27-2024 11:06-0400 Body height 175.26 cm [facility] 03-27-2024 11:06-0400 Body mass index (BMI) [Ratio] 32.3 kg/m2 [facility] 03-27-2024 11:06-0400 Body weight 99.33 kg [facility] 03-27-2024 11:06-0400 Diastolic blood pressure 64 mm[Hg] [facility] 03-27-2024 11:06-0400 Heart rate 72 /min [facility] 03-27-2024 11:06-0400 Respiratory rate 20 /min [facility] 03-27-2024 11:06-0400 Systolic blood pressure 98 mm[Hg] [facility] 02-15-2024 09:44-0400 Body mass index (BMI) [Ratio] 31.83 kg/m2 ANATOLY Bartlett MD Work Phone: [facility] 02-15-2024 09:44-0400 Body temperature 97.3 [degF] ANATOLY Bartlett MD Work Phone: [facility] 02-15-2024 09:44-0400 Body weight 99.2 kg ANATOLY Bartlett MD Work Phone: [facility] 02-15-2024 09:44-0400 Diastolic blood pressure 69 mm[Hg] ANATOLY Bartlett MD Work Phone: [facility] 02-15-2024 09:44-0400 Heart rate 66 /min ANATOLY Bartlett MD Work Phone: [facility] 02-15-2024 09:44-0400 Respiratory rate 18 /min ANATOLY Bartlett MD Work Phone: [facility] 02-15-2024 09:44-0400 Systolic blood pressure 109 mm[Hg] ANATOLY Bartlett MD Work Phone: [facility] 08-17-2023 10:03-0500 Body temperature 96.91 [degF] ANATOLY Bartlett MD Work Phone: [facility] 08-17-2023 10:03-0500 Body weight 104.78 kg ANATOLY Bartlett MD Work Phone: [facility] 08-17-2023 10:03-0500 Diastolic blood pressure 75 mm[Hg] ANATOLY Bartlett MD Work Phone: [facility] 08-17-2023 10:03-0500 Heart rate 62 /min ANATOLY Bartlett MD Work Phone: [facility] 08-17-2023 10:03-0500 Respiratory rate 16 /min ANATOLY Bartlett MD Work Phone: [facility] 08-17-2023 10:03-0500 SaO2% (BldA) [Mass fraction] 95 % ANATOLY Bartlett MD Work Phone: [facility] 08-17-2023 10:03-0500 Systolic blood pressure 156 mm[Hg] ANATOLY Bartlett MD Work Phone: [facility] 07-26-2023 11:00-0500 Body height 175.26 cm Nico Ball Other [employer] Other 07-26-2023 11:00-0500 Body mass index (BMI) [Ratio] 33.37 kg/m2 Nico Ball Other [employer] Other 07-26-2023 11:00-0500 Body weight 102.51 kg Nico Ball Other [employer] Other 07-26-2023 11:00-0500 Diastolic blood pressure 83 mm[Hg] Nico Ball Other [employer] Other 07-26-2023 11:00-0500 Respiratory rate 12 /min Nico Ball Other [employer] Other 07-26-2023 11:00-0500 Systolic blood pressure 133 mm[Hg] Nico Ball Other [employer] Other 11-29-2022 14:30-0400 Body height 175.26 cm Nico Ball Other [employer] Other 11-29-2022 14:30-0400 Body mass index (BMI) [Ratio] 34.58 kg/m2 Nico Ball Other [employer] Other 11-29-2022 14:30-0400 Body weight 106.23 kg Inco Ball Other [employer] Other 11-29-2022 14:30-0400 Diastolic blood pressure 71 mm[Hg] Nico Ball Other [employer] Other 11-29-2022 14:30-0400 Respiratory rate 12 /min Nico Ball Other [employer] Other 11-29-2022 14:30-0400 Systolic blood pressure 118 mm[Hg] Nico Ball Other [facility] [employer] Other 11-01-2022 11:22-0500 Blood Pressure Location HENRIQUE LANDRUM [facility] 11-01-2022 11:22-0500 Diastolic blood pressure 80 mm[Hg] HENRIQUE LANDRUM [facility] 11-01-2022 11:22-0500 Heart rate 68 /min HENRIQUE LANDRUM [facility] 11-01-2022 11:22-0500 Respiratory rate 16 /min HENRIQUE LANDRUM [facility] 11-01-2022 11:22-0500 Systolic blood pressure 137 mm[Hg] HENRIQUE LANDRUM [facility] 08-18-2022 10:22-0500 Body temperature 96.21 [degF] ANATOLY Bartlett MD Work Phone: [facility] 08-18-2022 10:22-0500 Body weight 105.23 kg ANATOLY Bartlett MD Work Phone: [facility] 08-18-2022 10:22-0500 Diastolic blood pressure 55 mm[Hg] ANATOLY Bartlett MD Work Phone: [facility] 08-18-2022 10:22-0500 Heart rate 78 /min ANATOLY Bartlett MD Work Phone: [facility] 08-18-2022 10:22-0500 Respiratory rate 18 /min ANATOLY Bartlett MD Work Phone: [facility] 08-18-2022 10:22-0500 SaO2% (BldA) [Mass fraction] 98 % ANATOLY Bartlett MD Work Phone: [facility] 08-18-2022 10:22-0500 Systolic blood pressure 125 mm[Hg] ANATOLY Bartlett MD Work Phone: [facility] 02-17-2022 09:51-0400 Body temperature 96.1 [degF] ANATOLY Bartlett MD Work Phone: [facility] 02-17-2022 09:51-0400 Body weight 100.7 kg ANATOLY Bartlett MD Work Phone: [facility] 02-17-2022 09:51-0400 Diastolic blood pressure 75 mm[Hg] ANATOLY Bartlett MD Work Phone: [facility] 02-17-2022 09:51-0400 Heart rate 66 /min ANATOLY Bartlett MD Work Phone: [facility] 02-17-2022 09:51-0400 Respiratory rate 16 /min ANATOLY Bartlett MD Work Phone: [facility] 02-17-2022 09:51-0400 SaO2% (BldA) [Mass fraction] 97 % ANATOLY Bartlett MD Work Phone: [facility] 02-17-2022 09:51-0400 Systolic blood pressure 120 mm[Hg] ANATOLY Bartlett MD Work Phone: [facility] Encounters Encounter Date Encounter Type Care Provider Facility Start: 05-28-2025 End: 05-28-2025 ambulatory Nico Ball DO Work Phone: [facility] Work Phone: Start: 05-28-2025 End: 05-28-2025 Patient encounter procedure Nico Ball DO -[facility] Work Phone: Start: 04-16-2025 End: 04-16-2025 ambulatory Nico Ball DO Work Phone: [facility] Work Phone: Start: 04-16-2025 End: 04-16-2025 Patient encounter procedure Nico Ball DO -[facility] Work Phone: Start: 03-24-2025 End: 03-24-2025 ambulatory Nico Ball DO Work Phone: [facility] Work Phone: Start: 03-24-2025 End: 03-24-2025 Patient encounter procedure Nico Lino DO -[facility] Work Phone: Start: 03-18-2025 Non-patient / Non-visit Nico scott DO -[facility] Work Phone: Start: 12-10-2024 End: 12-10-2024 ambulatory NICO LINO Facility:[facility] Start: 12-10-2024 End: 12-10-2024 Office outpatient visit 15 minutes Yuan Bartlett MD Work Phone: Radiation Oncology Comment on above: Cancer of prostate w /med recur risk (T2b-c or Urania 7 or PSA 10-20) (HCC) (Primary Dx) Start: 11-21-2024 End: 11-21-2024 ambulatory [facility] Work Phone: Start: 11-21-2024 End: 11-21-2024 Patient encounter procedure [facility] Work Phone: Start: 08-09-2024 End: 08-09-2024 ambulatory NICO LINO Facility:[facility] Start: 08-09-2024 End: 08-09-2024 Patient encounter procedure Yuan Bartlett MD Work Phone: Radiation Oncology Comment on above: Cancer of prostate w /med recur risk (T2b-c or Asaf 7 or PSA 10-20) (HCC) (Primary Dx) Start: 07-30-2024 End: 07-30-2024 ambulatory [facility] Work Phone: Start: 07-30-2024 End: 07-30-2024 Patient encounter procedure [facility] Work Phone: Start: 07-27-2024 Patient encounter procedure [facility] Start: 07-24-2024 Non-patient / Non-visit [facility] Work Phone: Start: 07-03-2024 End: 07-03-2024 Refill [...] Not Available Start: 03-27-2024 End: 03-27-2024 ambulatory [facility] Work Phone: Start: 03-27-2024 End: 03-27-2024 Patient encounter procedure [facility] Work Phone: Start: 03-26-2024 [facility]patient [facility] Start: 03-05-2024 End: 03-05-2024 ambulatory HENRIQUE LANDRUM Facility:[facility] Start: 03-05-2024 End: 03-05-2024 Patient encounter procedure HENRIQUE LANDRUM [facility] Start: 02-15-2024 End: 02-15-2024 Patient encounter procedure Yuan Bartlett MD Work Phone: Radiation Oncology Comment on above: Cancer of prostate w /med recur risk (T2b-c or Asaf 7 or PSA 10-20) (HCC) (Primary Dx) Start: 02-15-2024 End: 02-15-2024 ambulatory NICO LINO Facility:[facility] Start: 02-14-2024 Non-patient / Non-visit [facility] [employer] Work Phone: Start: 08-17-2023 End: 08-17-2023 Patient encounter procedure Yuan Bartlett MD Work Phone: Radiation Oncology Comment on above: Malignant neoplasm o f prostate (HCC) (Primary Dx) Start: 07-26-2023 End: 07-26-2023 ambulatory Nico Lino Other [employer] Other Start: 07-26-2023 Patient encounter procedure Nico Lino [facility] Start: 07-17-2023 End: 07-17-2023 ambulatory Nioc Lino Other [employer] Other Start: 07-17-2023 Telephone encounter Nico MERAZ [facility] Start: 04-04-2023 End: 04-04-2023 ambulatory Nico Lino Other [employer] Other Start: 04-04-2023 Telephone encounter Nico MERAZ [facility] Start: 01-05-2023 End: 01-05-[address] NICO LINO Facility: Start: 11-29-2022 End: 11-30-[address] NICO LINO [place] [employer] Other Start: 11-29-2022 Office outpatient vi sit 25 minutes Nico Lino [facility] Start: 11-01-2022 End: 11-01-2022 Patient encounter procedure HENRIQUE LANDRUM [facility] Start: 08-18-2022 End: 08-18-2022 ambulatory Irlanda Castro APRN.CNP Work Phone: Hematology/Oncology Comment on above: Prostate cancer (HCC ) Start: 08-18-2022 End: 08-18-2022 Patient encounter procedure Irlanda Castro PELOTA MAKER Work Phone: [facility]RISTOPHER Comment on above: Prostate cancer (HCC ) (Primary Dx) Start: 07-29-2022 End: 07-30-[address] NICO LINO Facility:[facility] Start: 07-25-2022 Adult health examination Nico Lino Other [employer] Other Start: 02-17-2022 End: 02-17-2022 Patient encounter procedure Yuan Bartlett MD Work Phone: Radiation Oncology Comment on above: Prostate cancer (HCC ) (Primary Dx) Start: 02-16-2022 End: 02-17-[address] NICO LINO Facility:[facility] Start: 01-16-[address] VICKI BARTLETT Fac ility:[facility] Start: 08-05-2021 End: 08-05-2021 Subsequent hospital visit by physician [facility] Scan Chirstopher Hui Work Phone: Radiology [facility] Start: 07-19-2021 End: 07-19-2021 Pre-procedure evaluation check Nico Lino Other [employer] Other Start: 10-24-2014 End: 10-25-2014 Patient encounter DEFAULT PHYSICIAN Facility:[facility] Procedures Date Procedure Procedure Detail Performing Clinician [...] #### P SAD, FOL, FERR, FETIBC #### [facility] [address] [address] [address] Radha Brown Start: 02-17-2022 Adult depression screening assessment ANATOLY Bartlett MD Work Phone: Start: 02-16-2022 End: 02-16-2022 PSA screening [facility] Provider Comment on above: Performed By: #### P SAD #### [facility] [address] [address] [address] Radha Brown Start: 07-07-2021 Brachytherapy implan [...] DTaP,Tdap,Td Vaccine (2 - Td or Tdap) [facility] Start: 06-17-2025 End: 06-17-2025 Patient encounter procedure 06/17/2025 11:30 AM EDT Office Visit Radiation Oncology [address] [place] [address] [place] [address] Yuan Bartlett MD [address] [place] [place] [address] Labs to be done at [facility] prior Radiation Oncology Comment on above: Labs to be done at [facility] prior Start: 06-12-2025 End: 09-11-2025 Testosterone [Mass/volume] in Serum or Plasma TESTOSTERONE, TOTAL BY IMMUNOASSAY (ADULT MALES, OR INDIVIDUALS ON TESTOSTERONE THERAPY) Lab Routine Cancer of prostate w/med recur risk (T2b-c or Urania 7 or PSA 10-20) (HCC) Expected: 06/12/2025, Expires: 09/11/2025 [facility] Comment on above: Expected: 06/12/2025 , Expires: 09/11/2025 Start: 04-11-2025 End: 07-11-2025 Prostate specific Ag [Mass/volume] in Serum or Plasma PROSTATE-SPECIFIC ANTIGEN DIAGNOSTIC Lab Routine Cancer of prostate w/med recur risk (T2b-c or Asaf 7 or PSA 10-20) (HCC) Expected: 04/11/2025 (Approximate), Expires: 07/11/2025 [facility] Work Phone: Comment on above: Expected: 04/11/2025 (Approximate), Expires: 07/11/2025 Start: 12-10-2024 End: 12-10-2024 Patient encounter procedure 12/10/2024 2:45 PM EDT Office Visit Radiation Oncology [address] [place] [address] [place] [address] Yuan Bartlett MD [address] [place] [place] [address] 4 month follow up Radiation Oncology Comment on above: 4 month follow up Start: 12-07-2024 End: 03-08-2025 Prostate specific Ag [Mass/volume] in Serum or Plasma PROSTATE-SPECIFIC ANTIGEN DIAGNOSTIC Lab Routine Cancer of prostate w/med recur risk (T2b-c or Asaf 7 or PSA 10-20) (HCC) Expected: 12/07/2024, Expires: 03/08/2025 [facility] Work Phone: Comment on above: Expected: 12/07/2024 , Expires: 03/08/2025 Start: 12-07-2024 End: 03-08-2025 Testosterone [Mass/volume] in Serum or Plasma TESTOSTERONE, TOTAL BY IMMUNOASSAY (ADULT MALES, OR INDIVIDUALS ON TESTOSTERONE THERAPY) Lab Routine Cancer of prostate w/med recur risk (T2b-c or Asaf 7 or PSA 10-20) (HCC) Expected: 12/07/2024, Expires: 03/08/2025 [facility] Comment on above: Expected: 12/07/2024 , Expires: 03/08/2025 Start: 09-18-2024 Advance Directive Discussion Advance Directive Discussion [facility] Start: 08-17-2024 End: 11-16-2024 Prostate specific Ag [Mass/volume] in Serum or Plasma PROSTATE-SPECIFIC ANTIGEN DIAGNOSTIC Lab Routine Cancer of prostate w/med recur risk (T2b-c or Asaf 7 or PSA 10-20) (HCC) Expected: 08/17/2024, Expires: 11/16/2024 [facility] Work Phone: Comment on above: Expected: 08/17/2024 , Expires: 11/16/2024 Start: 08-08-2024 End: 08-08-2024 Patient encounter procedure 08/08/2024 9:15 AM EST Office Visit Radiation Oncology [address] [place] [address] [place] [address] Yuan Bartlett MD [address] [place] [address] [place] [address] 6 month rv Radiation Oncology Comment on above: 6 month rv Start: 07-31-2024 Diabetes Screening Diabetes Screenin yuan [facility] Start: 06-24-2024 End: 06-24-2024 Patient encounter procedure 06/24/2024 9:05 AM EDT Procedure Visit [facility] Conchita Kenny, DO [address] [place] [address] [facility] Start: 06-10-2024 End: 06-10-2024 Patient encounter procedure 06/10/2024 10:25 AM EDT Procedure Visit [facility] Conchita Kenny, DO [address] [place] [address] [facility] Start: 05-19-2024 Covid-19 Vaccine () Covid-19 Vaccine () [facility] Start: 05-19-2024 Influenza vaccination Influenza Vacc ine (#1) [facility] Start: 05-14-2024 End: 05-14-2024 Patient encounter procedure 05/14/2024 1:45 PM EDT Office Visit [facility] [address] [place] [id number] Conchita Kenny, DO [address] [place] [address] Arrived [facility] Comment on above: Arrived Start: 02-15-2024 End: 05-16-2024 Prostate specific Ag [Mass/volume] in Serum or Plasma PSA/PROSTSPECAG DIAG Lab Routine Malignant neoplasm of prostate (HCC) Expected: 02/15/2024 (Approximate), Expires: 05/16/2024 [facility] Work Phone: Comment on above: Expected: 02/15/2024 (Approximate), Expires: 05/16/2024 Start: 10-14-2023 Covid-19 Vaccine () Covid-19 Vaccine () [facility] Start: 09-18-2023 Advance Directive Discussion Advance Directive Discussion [facility] Start: 09-18-2023 Behavioral Health Screening Behavioral Health Screening [facility] Start: 08-18-2023 End: 10-18-2023 Prostate specific Ag [Mass/volume] in Serum or Plasma PSA/PROSTSPECAG DIAG Lab Routine Prostate cancer (HCC) Expected: 08/18/2023, Expires: 10/18/2023 [facility] Work Phone: Comment on above: Expected: 08/18/2023 , Expires: 10/18/2023 Start: 02-17-2023 Adult depression screening assessment DEPRESSION SCREENING [facility] Start: 09-18-2022 Advance Directive Discussion Advance Directive Discussion [facility] Start: 09-18-2022 Depression Assessment Depression Ass essment [facility] Start: 08-19-2022 End: 10-19-2022 Prostate specific Ag [Mass/volume] in Serum or Plasma PSA/PROSTSPECAG DIAG Lab Routine Prostate cancer (HCC) Expected: 08/19/2022 (Approximate), Expires: 10/19/2022 [facility] Work Phone: Comment on above: Expected: 08/19/2022 (Approximate), Expires: 10/19/2022 Start: 09-18-2021 ADVANCE DIRECTIVE DISCUSSION ADVANCE DIRECTIVE DISCUSSION [facility] Start: 09-18-2021 DEPRESSION ASSESSMENT DEPRESSION ASS ESSMENT [facility] Start: 05-03-2021 COVID-19 VACCINE (3 - Booster for Moderna series) COVID-19 VACCINE (3 - Booster for Moderna series) [facility] Start: 2020 RSV Vaccine (1 - 1-d ose 75+ series) RSV Vaccine (1 - 1-dose 75+ series) [facility] Start: 10-04-2019 Pneumococcal Vaccine : 50+ (2 of 2 - PCV) Pneumococcal Vaccine: 50+ (2 of 2 - PCV) [facility] Start: 10-04-2019 Pneumococcal Vaccine : 65+ (2 - PCV) Pneumococcal Vaccine: 65+ (2 - PCV) [facility] Start: 10-04-2019 Pneumococcal Vaccine : 65+ (2 of 2 - PCV) Pneumococcal Vaccine: 65+ (2 of 2 - PCV) [facility] Start: 10-04-2019 Pneumococcal Vaccine : 65+ Years (2 of 2 - PCV) Pneumococcal Vaccine: 65+ Years (2 of 2 - PCV) [facility] Start: 10-04-2019 PNEUMOCOCCAL: 65+ (2 - PCV) PNEUMOCOCCAL: 65+ (2 - PCV) [facility] Start: 2005 RSV Vaccine (1 - 1-d ose 60+ series) RSV Vaccine (1 - 1-dose 60+ series) [facility] Start: 1995 SHINGRIX VACCINE (1 of 2) SHINGRIX VACCINE (1 of 2) [facility] Start: 1990 DIABETES SCREEN DIABETES SCREEN [facility] Start: 1964 SHINGRIX VACCINE (1 of 2) SHINGRIX VACCINE (1 of 2) [facility] Start: 1964 Urine microalbumin profile DTAP,TDAP,TD (1 - Tdap) [facility] Start: 1963 Anxiety Screening Anxiety Screening [facility] Start: 1963 Depression Screening Depression Scre ening [facility] Start: 1963 HEPATITIS C SCREENING HEPATITIS C [facility] Start: 1963 Hepatitis C screening Hepatitis C [facility] Comprehensive metabo lic 1999 panel - Serum or Plasma [facility] Comprehensive metabo lic 1999 panel - Serum or Plasma [facility] Comprehensive metabo lic 1999 panel - Serum or Plasma [facility] Microalbumin [Mass/volume] in Urine [facility] XR Hip - right 2 Views [facility] XR Lumbar spine 2 or 3 Views [facility] Immunizations Immunization Date Immunization Notes Care Provider Mak loya 07-30-2024 influenza, high dose seasonal, preservative-free [facility] 06-14-2023 COVID-19 Vaccine Pfi zer - Documentation Purposes Only Nico Lino Other [facility] 06-14-2023 Flu Shot - Documentation Purposes Only Nico Lino Other [facility] [employer] Other 06-14-2023 influenza virus vaccine, unspecified formulation Conchita Kenny DO Work Phone: [facility] 01-05-2023 tetanus toxoid, redu doni diphtheria toxoid, and acellular pertussis vaccine, adsorbed Nico Lino Other [employer] [facility] [employer] Other 07-25-2022 influenza (aIIV4) vaccine, age 65+ yr, quadrivalent, PF (FLUAD QUAD) ANATOLY Bartlett MD Work Phone: [facility] 07-25-2022 influenza virus vaccine, split virus (incl. purified surface antigen) Nico Lino Other [employer] Other 07-25-2022 influenza virus vaccine, unspecified formulation HENRIQUE LANDRUM [facility] 07-23-2022 SARS-CoV-2 (COVID-19 ) [id number] HENRIQUE LANDRUM [facility] 05-05-2022 SARS-CoV-2 mRNA (mqboekefvjp-yoix-yhiua se) vaccine HENRIQUE LANDRUM [facility] 06-10-2021 influenza nasal, unspecified formulation ANATOLY Bartlett MD Work Phone: [facility] 06-10-2021 influenza virus vaccine, split virus (incl. purified surface antigen) Nico Lino Other [employer] [facility] [employer] Other 06-10-2021 influenza virus vaccine, unspecified formulation HENRIQUE LANDRUM [facility] 06-10-2021 Seasonal trivalent influenza vaccine, adjuvanted, preservative free ANATOLY Bartlett MD Work Phone: [facility] 12-01-2020 COVID-19 vaccine, fu ll dose (MODERNA) ANATOLY Bartlett MD Work Phone: [facility] 11-05-2020 COVID-19 vaccine, fu ll dose (MODERNA) ANATOLY Bartlett MD Work Phone: [facility] 07-09-2020 influenza virus vaccine, split virus (incl. purified surface antigen) Nico Lino Other [employer] Other 07-09-2020 influenza virus vaccine, unspecified formulation [facility] 06-04-2019 influenza nasal, unspecified formulation ANATOLY Bartlett MD Work Phone: [facility] 06-04-2019 influenza virus vaccine, unspecified formulation HENRIQUE JUAREZRY [facility] 06-04-2019 Seasonal trivalent influenza vaccine, adjuvanted, preservative free ANATOLY Bartlett MD Work Phone: [facility] 10-04-2018 pneumococcal Conjuga te, unspecified formulation; Translations: [Need for prophylactic vaccination against Streptococcus pneumoniae (pneumococcus)] Nico Lion Other [employer] [facility] [employer] Other 10-04-2018 pneumococcal polysaccharide vaccine, 23 valent ANATOLY Bartlett MD Work Phone: [facility] 06-24-2015 influenza virus vaccine, split virus (incl. purified surface antigen) Nico Lino Other [employer] [facility] [employer] Other 06-24-2015 influenza virus vaccine, unspecified formulation [facility] 06-24-2015 pneumococcal conjuga te vaccine, 13 valent Nico Lino Other [facility] Payers Date Payer Category Payer Medicaid [employer] MEDICARE A DVANTAGE [id number] 2022 Medicare (Managed Care) A[employer] AL DICARE [id number] 2020 Unknown 2020 Unknown MMO MMO [employer] NAL [id number] 2020-Present [phone] [address] [place] [address] Indemnity [id number] 2011 Medicare MEDICARE MEDICAR E A AND B [id number] 2011-Present [phone] [place] [address] Medicare [id number] 2011 Medicare [id number] 1959 Medicare [id number] 1959 Medicare [id number] 1959 Self-pay [id number] 1959 Unknown [id number] 1945 Unknown [id number] 593 1945 Unknown [id number] 593 1945 Unknown [id number] 593 1945 Unknown [id number] 593 1945 Unknown [id number] 593 1945 Unknown [id number] 593 1945 Unknown [id number] 727 1945 Unknown [id number] Social History Date Type Detail Facility Start: 03-03-2021 End: 11-23-2023 Tobacco smoking status NHIS Ex-smoker [facility] Start: [birth year]-03-1957 End: 03-03-1961 History of tobacco use Current smoker [facility] Start: 03-03-2021 End: 08-17-2023 Cigarettes smoked current (pack per day) - Reported 0.5 [facility] Start: 03-03-2021 End: 08-09-2024 Tobacco use and exposure Smokeless tobacco non-user [facility] Start: 02-17-2022 End: 08-09-2024 Alcohol intake Current drinker of alcohol (finding) [facility] Start: 03-03-2021 History SDOH Alcohol Comment Socially [facility] Start: 1945 Sex Assigned At Not on file C [facility] Start: 07-06-2021 End: 08-18-2022 Exposure to SARS-CoV-2 (event) Not sure [facility] Start: [birth year]-03-1957 End: 03-03-1961 History of tobacco use Cigarette Smoker [facility] Start: 08-18-2022 End: 08-17-2023 Sex Assigned At Male Tom Arias [facility] Adult Depression Screening Assessment 0 [facility] Start: 1945 Sex Assigned At Male [facility] Start: 07-30-2024 End: 11-21-2024 Sex Male (finding) [facility] Medical Equipment Procedure Code Equipment Code Equipment Origin al Text Equipment Identifier Dates PROSTATIC BRACHYTHERAPY Yuan Bartlett MD 07/07/21 Unknown Other FDA Start: 07-07-2021 PROSTATIC BRACHYTHERAPY Yuan Bartlett MD 07/07/21 Unknown Other FDA Start: 07-07-2021 Functional Status Date Assessment Result Facility 11-01-2022 Functional Status N/A [facility] Clinical Notes 02-17-2022 to 03-24-2025 Note Date [...] 1:26pm Weight loss acute April 16 1:26pm [facility] Work Phone: 1(440) 596-693007-07-2025 Evaluation note* Diagnosis Onset Date Resolution Status [...] 2025 1:41pm Weight loss acute May 1:41pm [facility] Work Phone: 1(858) 843-845804-01-2025 Evaluation note* Diagnosis Cancer of prostate w/med recur risk (T2b-c or Urania 7 or PSA 10-20) (HCC)- Primary Malignant neoplasm of prostate documented in this encounter [facility]03-25-2025 History of Present illness Narrative* Yuan Bartlett MD - 12/10/2024 2:45 PM EDT ) C. 9/radiation Oncology - Follow Up Note PATIENT NAME: Segun Johnson PATIENT DIAGNOSIS: Prostate adenocarcinoma, initial PSA 11.5, biopsy Urania score 4 + 3 = 7 (grade [...] ASSESSMENT/PLAN: Prostate adenocarcinoma, initial PSA 11.5, biopsy Urania score 4 + 3 = 7 (grade group 3), clinical stage T2b, N0, M0, stage IIC [T1-T2, N0, M0, PSA <20, GG 3] (AJCC 8th ed.), s/pPelvic radiation and prostate brachytherapy boost. Clinically doing well. PSA with minimal spinning frame changer the last 3 to 4 months. Has risen over the last12 months still likely related to testosterone recovery after prior ADT. Recommend continued close observation. If continues to climb consider PSMA PET. Signed by: Yuan Bartlett MD cc: Nico Lino ([facility]) [address] [place] [address] Portions of the above note extracted and edited from previous visit as well as active information included in the EMR. * Katiana Acharya RN - 12/10/2024 2:38 PM EDT AUA 10 Katiana Acharya RN documented in this encounterReg[facility]-2025 NoteHNO ID: [id number] Author: Yuan BARTLETT MD Service: ? Author Type: Physician Type: Progress Notes Filed: 12/17/2024 10:57 Note Text: ) C. 9/radiation Oncology - Follow Up Note PATIENT NAME: Segun Johnson PATIENT DIAGNOSIS: Prostate adenocarcinoma, initial PSA 11.5, biopsy Urania score 4 + 3 = 7 (grade [...] ASSESSMENT/PLAN: Prostate adenocarcinoma, 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 Clinically doing well. PSA with minimal spinning frame changer the last 3 to 4 months. Has risen over the last 12 months still likely related to testosterone recovery after prior ADT. Recommend continued close observation. If continues to climb consider PSMA PET. Signed by: Yuan Bartlett MD cc: Nico Lino ([facility]) [address] [place] [address] Portions of the above note extracted and edited from previous visit as well as active information included in the EMR.[facility]03-25-2025 Note HNO ID: [id number] Author: KATIANA ACHARYA RN Service: ? Author Type: Registered Nurse Type: Progress Notes Filed: 12/17/2024 10:57 Note Text: AUSantiago Acharya RNMercy Health [facility]20[facility] Evaluation note* Diagnosis Cancer of prostate w/med recur risk (T2b-c or Asaf 7 or PSA 10-20) (HCC)- Primary Malignant neoplasm of prostate documented in this encounter [facility]11-22-2024 NoteHNO ID: [id number] Author: Yuan BARTLETT MD Service: ? Author [...] ASSESSMENT/PLAN: Prostate adenocarcinoma, initial PSA 11.5, biopsy Urania score 4 + 3 = 7 (grade [...] by: Yuan Bartlett MD cc: Nico Lino ([facility]) [address] [place] [id number] Store[address] Portions of the above note extracted and edited from previous visit as well as active information included in the EMR.[facility]11-22-2024 History of Present illness Narrative* Yuan Bartlett MD - 08/09/2024 9:19 AM EST Radiation Oncology - Follow Up Note PATIENT NAME: Segun Johnson PATIENT DIAGNOSIS: Prostate adenocarcinoma, initial PSA 11.5, biopsy Urania score 4 + 3 = 7 (grade [...] MD cc: Nico Lino ([facility]) [address] [place] [address] Dr. Rice Portions of the above note extracted and edited from previous visit as well as active information included in the EMR. documented in [facility] encounter[facility]24 Nurse Note* Jillian Waddell LPN - 08/09/2024 9:15 AM EST AUA= 8 [facility]11-22-2024 Nurse Note* Jillian Waddell LPN - 08/09/2024 9:15 AM EST AUA= 8 documented in this encounterRegency [facility]08-27-2024 History of Present illness Narrative* Conchita Kenny, [...] History: Diagnosis Date ASHD (arteriosclerotic heart disease) ([facility]) Cataract Diabetes mellitus with hyperglycemia ([facility] Dry eyes Elevated cholesterol ([facility]) CATHY (generalized anxiety disorder) ([facility] Hypertension ([facility]) Pernicious anemia Prostate cancer ([facility]) 2021 s/p Hormone tx, CTx, external beam [...] @ 2:06 PM Additional Tests Keratometry K1 [place] K2 [place] Right 45.5 151 46.5 61 Left 45.75 [...] Normal Normal Refraction Wearing Rx Sphere Cylinder [place] Add Right -4.75 +0.00 180 +2.50 Left -5.75 -0.50 055 +2.50 Manifest Refraction Sphere Cylinder [place] Right -4.25 -1.25 110 Left -6.00 -1.00 055 Final Rx Sphere Cylinder [place] Dist [place] Right -4.25 -0.75 110 20/40 [...] different lens options were explained including the wtn-rh-xvbtcs fees for any upgrades. Intraocular lens (IOL) [...] and OD - 06/24. documented in this encounterChildren[facility]cy HospitalHdhamwqhan02-02-6941 Evaluation note* Diagnosis Cancer of prostate w/med recur risk (T2b-c or Asaf 7 or PSA 10-20) (HCC)- Primary Malignant neoplasm of prostate documented in this encounter [facility]05-30-2024 History of Present illness Narrative* Yuan Bartlett MD - 02/15/2024 10:00 AM EDT Radiation Oncology - Follow Up Note PATIENT NAME: Segun Johnson PATIENT DIAGNOSIS: Prostate adenocarcinoma, initial PSA 11.5, biopsy Urania score 4 + 3 = 7 (grade [...] by: Yuan Bartlett MD cc: Nico Lino ([facility]) [address] [place] [address] Dr. Storey Portions of the above note extracted and edited from previous visit as well as active information included in the EMR. documented in this encounterRegency Hospital [facility]05-30-2024 NoteHNO ID: [id number] Author: Yuan BARTLETT MD Service: ? Author Type: Physician Type: Progress Notes Filed: 02/15/2024 11:26 Note Text: Radiation Oncology - Follow Up Note PATIENT NAME: Segun Johnson PATIENT DIAGNOSIS: Prostate adenocarcinoma, initial PSA 11.5, biopsy Urania score 4 + 3 = 7 (grade [...] by: Yuan Bartlett MD cc: Nico Lino ([facility]) [address] [place] [address] Dr. Storey Portions of the above note extracted and edited from previous visit as well as active information included in the EMR.[facility]05-30-2024 Nurse Note* Venus Vasques MA - 02/15/2024 9:47 AM EDT AUA=9 [facility]04-01-2024 Nurse Note* Venus Vasques MA - 02/15/2024 9:47 AM EDT AUA=9 documented in this encounterRegency [facility]11-30-2023 History of Present illness Narrative* Yuan Bartlett [...] by: Yuan Bartlett MD cc: Nico Lino ([facility]) [address] [place], [place] [id number] Dr. Storey Portions of the above note extracted and edited from previous visit as well as active information included in the EMR. documented in this encounterRegency [facility]11-30-2023 Nurse Note* Katiana Acharya RN - 08/17/2023 10:07 AM EST AUA 7 Katiana Acharya RN documented in this encounterRegency [facility]11-08-2023 Evaluation note* Encounter Date Diagnosis Assessment Notes [...] CD-10 - D51.0) Continue supplement, recheck CBC [employer] Other 07-18-2023 Evaluation note* Encounter Date Diagnosis Assessment Notes Treatment Notes Treatment Clinical Notes Mar, Type 2 diabetes mellitus with hyperglycemia, without long-term current use of insulin (ICD-10 - E11.65) [employer] Other 03-14-2023 Evaluation note* Encounter Date Diagnosis [...] Pernicious anemia (ICD-10 - D51.0) B12 monthly [employer] Other 02-14-2023 Hospital Discharge instructions Patient Education [...] urethra. Follow these instructions at home: Take ncca-olq-qnljrtd and prescription medicines only as told by [...] 09/04/2006 Document Revised: 07/30/2019 Document Reviewed: 10/09/2017 [employer] Patient Education [employer]. Follow Up Care 05/03/2022 11:28:51 With:DIALLO SHEEHAN, HENRIQUE Ortega, URL Address: [facility] Thania Ortega [facility] [place] [address] When:Within 18 Month(s) Comments:PSA [facility] 12-01-2022 History of Present illness Narrative* Irlanda [...] cancer. Irlanda Castro APRN.KEKE documented in this encounterRegency Hospital [facility]12-01-2022 History of Present illness Narrative* Yuan Bartlett [...] by: Yuan Bartlett MD cc: Nico Lino ([facility]) [address] [place] [address] Dr. Storey Portions of the above note extracted and edited from previous visit as well as active information included in the EMR. documented in this encounterRegency Hospital [facility]12-01-2022 Nurse Note* Katiana Acharya RN - 08/18/2022 10:30 AM EST AUA 14 Katiana Acharya RN documented in this encounterRegency [facility]06-02-2022 History of Present illness Narrative* Yuan Bartlett MD - 02/17/2022 9:58 AM EDT Radiation Oncology - Follow Up Note PATIENT NAME: Segun Johnson PATIENT DIAGNOSIS: Prostate adenocarcinoma, initial PSA 11.5, biopsy Urania score 4 + 3 = 7 (grade [...] Bartlett MD cc: Nico Lino ([facility]) [address] [place] [address] Dr. Storey Portions of the above note extracted and edited from previous visit as well as active information included in the EMR. documented in this encounterRegency Hospital [facility]06-02-2022 Nurse Note* Katiana Acharya RN - 02/17/2022 9:54 AM EDT AUA 10 Katiana Acharya RN documented in this encounterTriHealth + [facility] note Future Appointments Appointment Date:03/05/2024 11:00:00 AM Scheduled Provider:HENRIQUE LANDRUM PA-C Location:[facility] Appointment Type:URO Office Visit Diagnostic Tests Pending * PSA Total 11/01/22 [facility] evaluation note* Diagnosis Prostate cancer (HCC)- Primary Malignant neoplasm of prostate documented in this encounter [facility] note* Diagnosis Prostate cancer (HCC) Malignant neoplasm of prostate documented in this encounter [facility] note* Diagnosis Prostate cancer (HCC)- Primary Malignant neoplasm of prostate documented in this encounter [facility] noteNo [employer] Other Evaluation note* Diagnosis Malignant neoplasm of prostate (HCC)- Primary Malignant neoplasm of prostate documented in this encounter [facility] note* Diagnosis Onset Date Resolution Status ASHD (arteriosclerotic heart disease) acute Chronic venous insufficiency acute Diabetes mellitus with hyperglycemia acute Elevated cholesterol acute Primary hypertension acute Prostate cancer acute [facility] Work Phone: Evaluation note* Diagnosis Age-related nuclear cataract of both eyes- Primary documented in this encounter [facility] HealthcareEvaluation note* Diagnosis Age-related nuclear cataract of both eyes documented in this encounter [facility] HealthcareEvaluation note* Diagnosis Onset Date Resolution Status Admit Date ASHD (arteriosclerotic heart disease) acute July 30 10:57am Chronic venous insufficiency acute July 30, 2024 10:57am Diabetes mellitus with hyperglycemia acute July 30 10:57am Elevated cholesterol acute Nove mb 2023 10:57am Medicare annual wellness vis it, subsequent acute July 30 10:57am Primary hypertension acute Nove mb2023 10:57am Prostate cancer acute July 30, 2024 10:57am [facility] Work Phone: Evaluation note* Diagnosis Age-related nuclear cataract of both eyes- Primary [facility]* Diagnosis Onset Date Resolution Status Admit Date Low back pain radiating to r ight leg acute November 21, 2024 9:54am Right hip pain acute November 21, 2024 9:54am [facility] Work Phone: Evaluation note* Diagnosis Onset [...] 10:41am Weight loss acute March 24 10:41am [facility] Work Phone: History general Narrative - [...] LAD/OM 2003 Hospitalization History SEE SURGICAL HX [employer] Other Hospital course Narrative No data available for this section [facility] Hospital Discharge instructions No data available for this section [facility] progress note No data available for this section [facility] [place] reason for referral (narrative)No reason for referral information availableHocking Valley [facility] Hospital Work Phone: Summary Purpose Family History [...] section and content) DATE CREATED AUTHOR 04/06/2018 [facility] DATE CREATED AUTHOR AUTHOR'S ORGANIZ ATION 01/09/2023 [facility] DATE CREATED AUTHOR AUTHOR'S ORGANIZ ATION 03/07/2024 [facility] DATE CREATED AUTHOR AUTHOR'S ORGANIZ ATION 05/16/2024 [facility] dical [facility] DATE CREATED AUTHOR AUTHOR'S ORGANIZ ATION 12/21/[address] [facility] Source Comments (unrecognize d section and content) In the event this informatio n is protected by the Federal Confidentiality of Alcohol and Drug Abuse Patient Records regulations: The Federal rules restrict any use of the information to criminally investigate or prosecute any alcohol or drug abuse patient.[facility] the event this information is protected by the Federal Confidentiality of Alcohol and Drug Abuse Patient Records regulations: The Federal rules restrict any use of the information to criminally investigate or prosecute any alcohol or drug abuse patient.[facility]edo[facility] the event this information is protected by the Federal Confidentiality of Alcohol and Drug Abuse Patient Records regulations: The Federal rules restrict any use of the information to criminally investigate or prosecute any alcohol or drug abuse patient.[facility]edo[facility] the event this information is protected by the Federal Confidentiality of Alcohol and Drug Abuse Patient Records regulations: The Federal rules restrict any use of the information to criminally investigate or prosecute any alcohol or drug abuse patient.[facility]edo[facility] the event this information is protected by the Federal Confidentiality of Alcohol and Drug Abuse Patient Records regulations: The Federal rules restrict any use of the information to criminally investigate or prosecute any alcohol or drug abuse patient.[facility]edo[facility] the event this information is protected by the Federal Confidentiality of Alcohol and Drug Abuse Patient Records regulations: The Federal rules restrict any use of the information to criminally investigate or prosecute any alcohol or drug abuse patient.[facility]edo[facility] the event this information is protected by the Federal Confidentiality of Alcohol and Drug Abuse Patient Records regulations: The Federal rules restrict any use of the information to criminally investigate or prosecute any alcohol or drug abuse patient.[facility]edo[facility] the event this information is protected by the Federal Confidentiality of Alcohol and Drug Abuse Patient Records regulations: The Federal rules restrict any use of the information to criminally investigate or prosecute any alcohol or drug abuse patient.[facility] Reason for Visit (unrecogniz ed section and [...] November 21, 2024 End: November 21, 2024 Water Pollution Specialist Relationship Specialty Start Date End Date Nico Lino, DO [address] [facility] [place] [address] PCP - General Internal Medicine 02/10/21 Joseph Vasques Jr. [address] [place] [address] Urology 02/10/21 Water Pollution Specialist Relationship Specialty Start Date End Date Holland Nico Ortega DO [address] [facility] [place] [address] PCP - General Internal Medicine 02/10/21 Joseph Vasques Jr. [address] [place] [address] Urology 02/10/21 Water Pollution Specialist Relationship Specialty Start Date End Date Nico Lino, DO [address] [facility] [place] [address] PCP - General Internal Medicine 02/10/21 Joseph Vasques Jr. [address] [place] [address] Urology 02/10/21 Water Pollution Specialist Relationship Specialty Start Date End Date Nico Lino DO [address] [facility] [place] [address] PCP - General Internal Medicine 02/10/21 Joseph Vasques Jr. [address] [place] [address] Urology 02/10/21 Water Pollution Specialist Relationship Specialty Start Date End Date Nico Lino DO [address] [place] [address] PCP - General Internal Medicine 02/10/21 Joseph Vasques Jr. [address] [place] [address] Urology 02/10/21 Team Status: Active Member Role [...] March 27, 2024 End: March 27, 2024 Water Pollution Specialist Relationship Specialty Start Date End Date Nico Lino DO [address] [place] [address] PCP - General Internal Medicine 02/10/21 Joseph Vasques Jr. [address] [place] [address] Urology 02/10/21 Water Pollution Specialist Relationship Specialty Start Date End Date Nico Lino MD [address] [place] [address] PCP - General Internal Medicine 05/14/24 Water Pollution Specialist Relationship Specialty Start Date End Date Nico Lino MD [address] [place] [address] PCP - General Internal Medicine 05/14/24 Team Status: Active Member Role Status Dates Nico Lino DO Primary Care Provide r, Attending Provider Active Start: July 24, 2024 Team Status: Inactive Member Role Status Dates Nico Lino DO Primary Care Provide r, Attending Provider Active Start: July 30, 2024 End: July 30, 2024 Water Pollution Specialist Relationship Specialty [place] [address] [place] [address] PCP - General Internal Medicine 02/10/21 Joseph Vasques Jr. [address] [address] Urology 02/10/21 Water Pollution Specialist Relationship Specialty Start Date End Date Nico Lino MD [address] [place] [address] PCP - General Internal Medicine 05/14/24 Team [...] BE BASED ON THE PRIMARY CLINICAL RECORDS. [facility] [employer] [facility]. provides no warranty or guarantee of the accuracy or completeness of information in this document.
[2025-06-02 09:08] LABS: Hematocrit 38.1 % (42.0-54.0); Hemoglobin 12.7 g/dL (14.0-18.0); Immature Granulocytes Abs Auto 0.03 10^3/uL (0.00-0.03); Immature Granulocytes Pct Auto 0.3 % (0.0-0.5); Lymphocytes Absolute Auto 2.1 10^3/uL (1.2-3.8); Mean Corpuscular HGB Conc 33.3 g/dL (29.9-35.2); Mean Corpuscular Hemoglobin 29.4 pg (25.9-34.0); Mean Corpuscular Volume 88.2 fL (80.0-94.0); Platelet Count 378 10^3/uL (150-450); Red Blood Count 4.32 10^6/uL (4.70-6.10); White Blood Count 10.5 10^3/uL (4.0-11.0)
[2025-06-02 09:52] LABS: Alanine Aminotransferase 30 U/L (16-63); Albumin Globulin Ratio 0.7; Albumin Level 3.4 g/dL (3.4-5.0); Alkaline Phosphatase 86 U/L (46-116); Anion Gap 15.3; Aspartate Amino Transferase 26 U/L (15-37); Blood Urea Nitrogen 31.0 mg/dL (7.0-18.0); Calcium 9.3 mg/dL (8.5-10.1); Carbon Dioxide 24.1 mmol/L (21.0-32.0); Chloride 103 mmol/L (98-107); Estimated GFR (African America 45 (>=60 mL/min/1.73m^2); Estimated GFR (Non-African Ame 37 (>=60 mL/min/1.73m^2); Globulin 4.9 g/dL; Glucose 135 mg/dL (74-106); Potassium 4.4 mmol/L (3.5-5.1); Sodium 138 mmol/L (136-145); Thyroid Stimulating Hormone 6.659 uIU/mL (0.358-3.740); Total Protein 8.3 g/dL (6.4-8.2)
== END 2025-06-02 08:27 | disposition home or self-care (01) ==
LOC: LAB 08:27
PROVIDERS: PCP Internal Medicine; Visit Provider Internal Medicine
DX: R63.4 Abnormal weight loss (principal); N18.32 Chronic kidney disease, stage 3b; E11.65 Type 2 diabetes mellitus with hyperglycemia; C61 Malignant neoplasm of prostate; I12.9 Hypertensive chronic kidney disease with stage 1 through stage 4 chronic kidney disease, or unspecified chronic kidney disease
CPT/HCPCS: 36415; 80053; 84153; 84403; 84439; 84443; 84480; 85025

== ENCOUNTER 2025-06-10 12:44 | Emergency (ER) | payer MEDICARE, SELFPAY ==
[2025-06-10] VITALS (22 sets, daily range): BP systolic 111–134; BP diastolic 60–101; PULSE 61–79; TEMP 36.4; O2SAT 93–98; BMI 28.8
--- NOTE | 2025-06-10 12:58 | ECG_ITS ---
The [facility] Test Date: 2025-06-10 Pat Name: SEGUN JOHNSON Department: Room: - Gender: Male Working Supervisor: : 1945 Requested By: [id number] Order Number: [id number] Reading MD: VICKI HARDY M.D. Measurements Intervals [address] Rate: 62 P: 34 DE: 190 QRS: 56 QRSD: 86 T: 58 QT: 424 QTc: 430 Interpretive Statements 1100 Sinus rhythm 9110 normal ECG No previous ECG available for comparison Electronically Signed On 06-10-2025 18:06:42 EDT by VICKI HARDY M.D.
--- NOTE | 2025-06-10 12:58 | ED.FALL1 ---
HPI HPI - Fall General Chief Complaint: Fall Stated Complaint: FALL Time Seen by Provider: 06/10/25 12:58 Source: patient Mode of arrival: Wheelchair Limitations: no limitations History of Present Illness HPI Narrative: The patient's be evaluated after a code purple called in the lobby of the hospital and the patient apparently was getting into the hospital to get a CAT scan done of his abdomen and apparently he felt dizzy and fell, patient mention he felt dizzy while walking and he was not using his walker as usual The patient had his COVID and flu shot last night and that he has been having some bodyaches since yesterday The patient denies any nausea vomiting or any other concerns at the moment except for the body ache and he denies any headache or any neck pain Patient also mentioned that he has been losing weight he has been having some decrease in appetite over the last few weeks and his primary care doctor wanted him to get a CAT scan of his abdomen that why he is here Related Data Home Medications ?Medication ?Instructions ?Recorded ?Confirmed atenolol 25 mg tablet 25 mg PO Q24H 05/27/25 06/10/25 atorvastatin 80 mg tablet 80 mg PO DAILY 05/27/25 06/10/25 folic acid 1 mg tablet 1 mg PO DAILY 05/27/25 06/10/25 glipizide 5 mg tablet 5 mg PO DAILY 05/27/25 06/10/25 sertraline 100 mg tablet 100 mg PO DAILY 05/27/25 06/10/25 aspirin 81 mg tablet,delayed 81 mg PO DAILY 06/10/25 06/10/25 release (Adult Aspirin Regimen) lisinopril 10 mg tablet 10 mg PO QDAY 06/10/25 06/10/25 pantoprazole 40 mg tablet,delayed 40 mg PO QAM 06/10/25 06/10/25 release Allergies Allergy/AdvReac Type Severity Reaction Status Date / Time No Known Drug Allergies Allergy Verified 06/10/25 12:51 Opioid HPI Opioid Management Most Recent Pain and Opioid Data: Last Pain Scale 3 05/27/25, 08:31 Review of Systems ROS Status of ROS 10 or more systems reviewed and unremarkable except as noted in history and below PFSH PFSH Social History Little interest or pleasure in doing things: not at all Feeling down, depressed, or hopeless: not at all Exam Narrative Exam Narrative: Nurses notes and vital signs reviewed and patient is not hypoxic. General: Well-appearing and in no apparent distress. Head: Normocephalic, contusion to the left forehead no open wounds Neck: Supple, non-tender. Eye: Pupils are equal, round and EOMI. No scleral icterus. Ears, Nose, Mouth, and Throat: TM are clear, no nasal mucosal hypertrophy. Oral mucosa is moist, no posterior oropharynx erythema, uvula is mid-line Cardiovascular: Regular Rate and Rhythm without murmur, gallop or rub. Respiratory: No accessory muscle use or respiratory distress. Lungs are clear to auscultation, no wheezing, rales or rhonchi Chest Wall: no tenderness Back: No midline thoracic or lumbar vertebral tenderness. No CVA tenderness Musculoskeletal: normal ROM, no calf or popliteal tenderness, no lower extremity edema/swelling but the patient have some swelling to the lower anterior knees with no tenderness on palpation GI: Abdomen is soft, mildly distended. Normal bowel sounds. No masses appreciated. No tenderness to palpation. No rebound, guarding, left upper quadrant subjective tenderness but the patient is not tender on exam Neurological: A&O x4. No cranial nerve dysfunction observed. Constitutional Vital Signs, click to edit/add: Last Vital Signs Temp 97.5 F L 06/10/25 12:51 Pulse 66 06/10/25 15:20 Resp 13 06/10/25 15:20 BP 111/60 06/10/25 15:18 Pulse Ox 96 06/10/25 15:20 O2 Del Method Room Air 06/10/25 12:51 Course Vital Signs Vital signs: Vital Signs Blood Pressure 118/67 06/10/25 12:47 Temperature 97.5 F L 06/10/25 12:51 Pulse Rate 66 06/10/25 15:20 Respiratory Rate 13 06/10/25 15:20 Blood Pressure 111/60 06/10/25 15:18 Pulse Oximetry 96 06/10/25 15:20 Oxygen Delivery Method Room Air 06/10/25 12:51 MDM - Fall MDM Narrative Medical decision making narrative: The patient EKG shows a sinus rhythm with a heart rate of [address] elevation or depression CT head as well as CT cervical and CT of the abdomen showed no acute pathology ?CT of the abdomen obtained with the patient history of abdominal discomfort with weight loss and the fact that he was coming here to get the CAT scan done CBC and chemistry showed no acute pathology except for mild acute kidney injury with creatinine being 1.7 the last time he was here today it was 1.9 Patient provided with some IV fluid in the ER with a 500 cc of normal saline and he was instructed about hydration specially that he received his COVID and flu shot together yesterday and he has been having some bodyaches and what he felt like a fever last night The patient is to follow up with primary care physician in next 2-3 days or to return to the emergency department should any of the signs or symptoms worsen or new symptoms develop. The patient agrees with the following Diagnosis and Treatment plan and the patient will be discharged home. Lab Data Labs: Lab Results 06/10/25 Range/Units 12:50 WBC 8.3 (4.0-11.0) 10^3/uL RBC 4.24 L (4.70-6.10) 10^6/uL Hgb 12.4 L (14.0-18.0) g/dL Hct 37.3 L (42.0-54.0) % MCV 88.0 (80.0-94.0) fL MCH 29.2 (25.9-34.0) pg MCHC 33.2 (29.9-35.2) g/dL RDW 14.7 (11.0-15.0) % Plt Count 372 (150-450) 10^3/uL MPV 11.3 (9.5-13.5) fL Neut % (Auto) 81.4 H (43.0-75.0) % Lymph % (Auto) 9.4 L (20.5-60.0) % [place] % (Auto) 5.0 (1.7-12.0) % Eos % (Auto) 2.6 (0.9-7.0) % Baso % (Auto) 1.2 (0.2-2.0) % Neut # (Auto) 6.8 H (1.4-6.5) 10^3/uL Lymph # (Auto) 0.8 L (1.2-3.8) 10^3/uL [place] # (Auto) 0.4 (0.3-0.8) 10^3/uL Eos # (Auto) 0.2 (0.0-0.7) 10^3/uL Baso # (Auto) 0.1 (0.0-0.1) 10^3/uL Abs Immat Gran (auto) 0.03 (0.00-0.03) 10^3/uL Imm/Tot Granulo (auto) 0.4 (0.0-0.5) % Sodium 136 (136-145) mmol/L Potassium 4.2 (3.5-5.1) mmol/L Chloride 102 (98-107) mmol/L Carbon Dioxide 20.7 L (21.0-32.0) mmol/L Anion Gap 17.5 BUN 30.0 H (7.0-18.0) mg/dL Creatinine 1.95 H (0.70-1.30) mg/dL Est GFR ( Amer) 40 L (>=60 mL/min/1.73m^2) Est GFR (Non-Af Amer) 33 L (>=60 mL/min/1.73m^2) BUN/Creatinine Ratio 15.4 Glucose 143 H (74-106) mg/dL Calcium 9.3 (8.5-10.1) mg/dL Total Bilirubin 0.8 (0.2-1.0) mg/dL AST 25 (15-37) U/L ALT 35 (16-63) U/L Alkaline Phosphatase 89 (46-116) U/L Total Protein 8.0 (6.4-8.2) g/dL Albumin 3.3 L (3.4-5.0) g/dL Globulin 4.7 g/dL Albumin/Globulin Ratio 0.7 Discharge Plan Discharge Chief Complaint: Fall Clinical Impression: CHANTEL (acute kidney injury), Fall, Head injury Patient Disposition: Home, Self-Care Time of Disposition Decision: 15:51 Condition: Good Prescriptions / Home Meds: No Action atenolol 25 mg tablet 25 mg PO Q24H atorvastatin 80 mg tablet 80 mg PO DAILY folic acid 1 mg tablet 1 mg PO DAILY glipizide 5 mg tablet 5 mg PO DAILY sertraline 100 mg tablet 100 mg PO DAILY lisinopril 10 mg tablet 10 mg PO QDAY pantoprazole 40 mg tablet,delayed release (DR/EC) 40 mg PO QAM aspirin [Adult Aspirin Regimen] 81 mg tablet,delayed release (DR/EC) 81 mg PO DAILY Print Language: Maltese Instructions: Acute Kidney Injury (DC), Head Injury (DC), Fall Prevention (ED) Referrals: Nico Lino DO [Primary Care Provider, Internal Medicine] - 1 week
--- NOTE | 2025-06-10 13:05 | CT_ITS ---
The [address] [address] Patient Name: SEGUN JOHNSON MRN: [id number] date: 1945 Sex: M Assigned Patient Location: ED.MAIN Current Patient Location: ED.MAIN Accession/Order Number: [id number] Exam Date: 06/10/2025 14:02 Report Date: 06/10/2025 14:50 At the request of: JAN MORENO MD Procedure: CT cervical spine wo con CT head/brain wo con, CT cervical spine wo con 06/10/2025 2:13 PM SIGNS AND SYMPTOMS: Fall hitting left side of head, abdominal pain and vomiting TECHNIQUE:Multi-detector CT axial slices of the brain and cervical spine were obtained without IV contrast. Helical,sagittal, coronal, and 3-D reconstructions of the cervical spine were performed. CT was performed with one or more of the following dose reduction techniques: Automated exposure control, adjustment of the mA and/or kV according to patient size, or use of iterative reconstruction technique. COMPARISON: None. FINDINGS: Noncontrast head CT: There is no shift of the midline structures, acute intracranial bleeding, mass effects, or evidence of acute ischemia. There is age-related cortical atrophy. Periventricular white matter hypoattenuation. Remote lacunar infarcts are noted in the left deep higginbotham nuclei and subinsular region. There is a remote lacunar infarct near the right caudate nucleus. Atherosclerotic changes are noted in the V4 segment of the right vertebral artery and intracranial segments of the internal carotid arteries. The ventricular system is normal in size. The brainstem and the cerebellum are unremarkable. The visualized intraorbital contents, the visualized paranasal sinuses, and the infratemporal soft tissues show no acute abnormality. The osseous structures in the skull base and the calvarium show no abnormality. Cervical spine: There is preservation of the vertebral body heights. There is moderate disc height loss at C5-C6 and C6-C7 with broad-based disc bulges at C4-C5, C5-C6, and C6-C7. Facet degenerative changes are present throughout. No fractures or dislocations are seen. The alignment of the cervical spine is normal. The craniocervical junction is within normal limits. Degenerative changes are noted in the atlantoaxial joint. The prevertebral soft tissues are within normal limits. Calcified plaque is noted in the left carotid bifurcation. The paraspinous soft tissues are within normal limits. The lung apices are unremarkable. There is a large calcified lymph node along the right-sided mediastinum. CT/CT cervical spine wo con IMPRESSION: No acute intracranial pathology. Chronic age-related neurodegenerative changes are noted as above. Remote lacunar infarcts are noted in the deep higginbotham nuclei bilaterally. No acute cervical spine injury. Degenerative changes are noted in the cervical spine. Impression dictated by: Inocencio Hackett M.D. 06/10/2025 2:50 PM Dictation Location: [place] [address] Electronically authenticated by: [id number] Y Date: 06/10/2025 14:50
--- NOTE | 2025-06-10 13:05 | CT_ITS ---
The [address] [address] Patient Name: SEGUN JOHNSON MRN: [id number] date: 1945 Sex: M Assigned Patient Location: ED.MAIN Current Patient Location: ED.MAIN Accession/Order Number: [id number] Exam Date: 06/10/2025 14:02 Report Date: 06/10/2025 14:50 At the request of: JAN MORENO MD Procedure: CT cervical spine wo con CT head/brain wo con, CT cervical spine wo con 06/10/2025 2:13 PM SIGNS AND SYMPTOMS: Fall hitting left side of head, abdominal pain and vomiting TECHNIQUE:Multi-detector CT axial slices of the brain and cervical spine were obtained without IV contrast. Helical,sagittal, coronal, and 3-D reconstructions of the cervical spine were performed. CT was performed with one or more of the following dose reduction techniques: Automated exposure control, adjustment of the mA and/or kV according to patient size, or use of iterative reconstruction technique. COMPARISON: None. FINDINGS: Noncontrast head CT: There is no shift of the midline structures, acute intracranial bleeding, mass effects, or evidence of acute ischemia. There is age-related cortical atrophy. Periventricular white matter hypoattenuation. Remote lacunar infarcts are noted in the left deep higginbotham nuclei and subinsular region. There is a remote lacunar infarct near the right caudate nucleus. Atherosclerotic changes are noted in the V4 segment of the right vertebral artery and intracranial segments of the internal carotid arteries. The ventricular system is normal in size. The brainstem and the cerebellum are unremarkable. The visualized intraorbital contents, the visualized paranasal sinuses, and the infratemporal soft tissues show no acute abnormality. The osseous structures in the skull base and the calvarium show no abnormality. Cervical spine: There is preservation of the vertebral body heights. There is moderate disc height loss at C5-C6 and C6-C7 with broad-based disc bulges at C4-C5, C5-C6, and C6-C7. Facet degenerative changes are present throughout. No fractures or dislocations are seen. The alignment of the cervical spine is normal. The craniocervical junction is within normal limits. Degenerative changes are noted in the atlantoaxial joint. The prevertebral soft tissues are within normal limits. Calcified plaque is noted in the left carotid bifurcation. The paraspinous soft tissues are within normal limits. The lung apices are unremarkable. There is a large calcified lymph node along the right-sided mediastinum. CT/CT head/brain wo con IMPRESSION: No acute intracranial pathology. Chronic age-related neurodegenerative changes are noted as above. Remote lacunar infarcts are noted in the deep ihgginbotham nuclei bilaterally. No acute cervical spine injury. Degenerative changes are noted in the cervical spine. Impression dictated by: Inocencio Hackett M.D. 06/10/2025 2:50 PM Dictation Location: [place] [address] Electronically authenticated by: [id number] Y Date: 06/10/2025 14:50
[2025-06-10 13:07] LABS: Hematocrit 37.3 % (42.0-54.0); Hemoglobin 12.4 g/dL (14.0-18.0); Immature Granulocytes Abs Auto 0.03 10^3/uL (0.00-0.03); Immature Granulocytes Pct Auto 0.4 % (0.0-0.5); Lymphocytes Absolute Auto 0.8 10^3/uL (1.2-3.8); Mean Corpuscular HGB Conc 33.2 g/dL (29.9-35.2); Mean Corpuscular Hemoglobin 29.2 pg (25.9-34.0); Mean Corpuscular Volume 88.0 fL (80.0-94.0); Platelet Count 372 10^3/uL (150-450); Red Blood Count 4.24 10^6/uL (4.70-6.10); White Blood Count 8.3 10^3/uL (4.0-11.0)
--- NOTE | 2025-06-10 13:16 | CT_ITS ---
The [address] [address] Patient Name: SEGUN JOHNSON MRN: [id number] date: 1945 Sex: M Assigned Patient Location: ED.MAIN Current Patient Location: ED.MAIN Accession/Order Number: [id number] Exam Date: 06/10/2025 14:02 Report Date: 06/10/2025 14:56 At the request of: JAN MORENO MD Procedure: CT abdomen pelvis wo con CT abdomen pelvis wo con 06/10/2025 2:13 PM SIGNS AND SYMPTOMS: ^abd pain and vomiting, fall TECHNIQUE: Multidetector ct axial images of the abdomen and pelvis were obtained without IV contrast. Multiplanar reformats were performed and reviewed to further define anatomy and possible pathology. CT was performed with one or more of the following dose reduction techniques: Automated exposure control, adjustment of the mA and/or kV according to patient size, or use of iterative reconstruction technique. COMPARISON: None. FINDINGS: Lower Chest: Atherosclerotic changes are noted in the coronary arteries and thoracic aorta. Calcified mediastinal lymph nodes are present. ABDOMEN: Liver: Within normal limits. Bile Ducts: Normal caliber. Gallbladder: Stones are noted in the gallbladder lumen. Pancreas: Within normal limits. Spleen: Calcified granulomas are noted in the spleen. Adrenals: Within normal limits. Kidneys: There is a simple cyst in the left renal cortex requiring no further follow-up. Pelvis: Reproductive Organs: No pelvic masses. Ureters: Within normal limits. Bladder: Within normal limits. Bowel: Normal caliber. Mesenteric Lymph Nodes: No enlarged mesenteric lymph nodes. Peritoneum: No ascites or free air, no fluid collection. Vessels: Atherosclerotic changes are noted in the abdominal aorta. Retroperitoneum: Within normal limits. Abdominal Wall: Fat-containing inguinal hernias are visualized. Bones: Degenerative changes are noted in the thoracolumbar spine and hips. CT/CT abdomen pelvis wo con IMPRESSION: No bowel obstruction or obstructive uropathy. No free fluid or free air. No evidence of acute traumatic injury. There is a stone in the gallbladder lumen. Impression dictated by: Inocencio Hackett M.D. 06/10/2025 2:56 PM Dictation Location: [place] [address] Electronically authenticated by: [id number] Y Date: 06/10/2025 14:56
[2025-06-10 13:24] LABS: Alanine Aminotransferase 35 U/L (16-63); Albumin Globulin Ratio 0.7; Albumin Level 3.3 g/dL (3.4-5.0); Alkaline Phosphatase 89 U/L (46-116); Anion Gap 17.5; Aspartate Amino Transferase 25 U/L (15-37); Blood Urea Nitrogen 30.0 mg/dL (7.0-18.0); Calcium 9.3 mg/dL (8.5-10.1); Carbon Dioxide 20.7 mmol/L (21.0-32.0); Chloride 102 mmol/L (98-107); Estimated GFR (African America 40 (>=60 mL/min/1.73m^2); Estimated GFR (Non-African Ame 33 (>=60 mL/min/1.73m^2); Globulin 4.7 g/dL; Glucose 143 mg/dL (74-106); Potassium 4.2 mmol/L (3.5-5.1); Sodium 136 mmol/L (136-145); Total Protein 8.0 g/dL (6.4-8.2)
--- OUTSIDE RECORDS SUMMARY | 2025-06-10 13:25 | XMS_ITS | Clinical Summary ---
Author Organization [facility] Address [address] [place], [place] [address] Care Team Providers Care Manager Psychiatry Name Role Phone Nico Lino DO Primary Care Provider Joseph Vasques Carlos A Jr. Unavailable [phone] Allergies No known active allergies Medications aspirin, [...] is lower risk 7 08/17/2023 Data from: https://www.neighborhoodatlas.medicine.[facility].edu/. Last address used for calculation [address] [facility] 08/17/2023 Sex and Gender Information Value [...] AM EDT Office Visit Radiation Oncology [address] [place] [address] Ronda Bartlett MD [address] [place] [address] Labs to be done at [facility] prior Health Maintenance Due Date Last Done Comments Anxiety Screening 1963 Depression Screening 1963 Shingrix Vaccine (1 of 2) 1995 Pneumococcal Vaccine: 50+ (2 of 2 - PCV) 10/04/2019 10/04/2018 RSV Vaccine (1 - 1-dose 75+ series) 2020 Diabetes Screening 07/31/2024 07/31/2021 Advance Directive Discussion 09/18/2024 Medicare Advantage Annual We llness Visit 09/18/2024 Influenza Vaccine (#1) 2025 , 06/14/2023, 07/25/2022, Additional history exists DTaP,Tdap,Td Vaccine (2 - Td or Tdap) 01/05/2033 01/05/2023 Procedures Procedure Name Priority Date/Time Associated Diagnosis Comments EXTERNAL LAB 06/04/2025 4:01 PM EDT PSA (OUTSIDE) Routine 06/02/2025 from Last 3 Months Results * EXTERNAL LAB (06/04/2025 4:01 PM EDT) us External Provider PA-C LABORATORY Final Res ult * PSA (OUTSIDE) (06/02/2025) PSA. 2.75 BLOOD SPECIMEN / Unknown 06/02/2025 [facility] Provider LABORATORY Final Result from Last 3 Months Insurance [employer] MEDICARE Care Teams Manager Psychiatry Relationship Specialty Start Date End Date Nico Lino DO [address] [place] [address] PCP - General Internal Medicine 02/10/21 Joseph Vasques Jr. [address] [place] [address] Urology 02/10/21
--- OUTSIDE RECORDS SUMMARY | 2025-06-10 13:26 | XMS_ITS ---
Author Organization [facility] Address [address] [place], [place] [address] Care Team Providers Care Grinder Name Role Phone Nico Lino DO Primary Care Provider [phone] Joseph Vasques Jr. Unavailable [phone] Active Problems Problem Noted Date Diagnosed Date [...] Dr. Ketan Bartlett Other Providers: Irlanda Castro APRN.ORACLE FUSION DEVELOPER Treatment Summary Diagnosis Cancer Type: Adenocarcinoma of the Prostate Location: Left lateral base; Left lateral mid; Left lateral apex; Left base; Left mid; Right base; Right mid; Right lateral base; Right lateral mid Diagnosis Date (year): January 28, 2021 Histology Subtype: Prostate Cancer Stage:IIC; Clinical stage T2b, N0, M0 Dexter Score: 4+3=7 PSA at Diagnosis: 11.5 Clinical [...] Resources you may be interested in: www.cancer.net Machine Ii Cutter Jack Machine Operator Art Therapy Support Groups- Contact Machine Ii Cutter for dates and times. Prepared by: Irlanda Castro APRN.ORACLE FUSION DEVELOPER Delivered on: August 18, 2022 - This [...]
--- OUTSIDE RECORDS SUMMARY | 2025-06-10 13:26 | XMS_ITS | Clinical Summary ---
Author Organization [facility] Healthcare Address [address] [place] [address] Care Team Providers Care Corrections Officer Name Role Phone Nico Lino DO Primary Care Provider [phone] Allergies No known active allergies Medications atorvastatin [...] 06/24/2015 Insurance [employer] MEDICARE ADVANTAGE Care Teams Corrections Officer Relationship Specialty Start Date End Date Nico Lino DO PCP - General Internal Medicine 05/14/24
--- OUTSIDE RECORDS SUMMARY | 2025-06-10 13:29 | XMS_ITS | CCD ---
Author Organization [facility] Care Team Providers Care Color Printer Operator Name Role Phone PHYSICIAN, DEFAULT Unavailable Unavailable [...] Care Unavailable HOLLAND, DR MAS Consulting Unavailable DHRUV, DR VICKI Delcid Admitting Unavailable ENGRENATO, DR VICKI Delcid Attending Unavailable HOLLAND, DR MAS Primary Care Unavailable DHRUV, DR VICKI Delcid Consulting Unavailable HOLLAND, DR MAS Primary Care Unavailable ANA ., CYNTHIA Admitting Unavailable ANA ., CYNTHIA Attending Unavailable FAUSTINA ., HALLE CASTELLANOS Consulting Unavailevangelina e DHRUV, DR VICKI Delcid Admitting Unavailable ENGELEChristos, DR [...] Attending Unavailable NICO LINO Primary Care Unavailable ENGRUSTYRYuan Referring Unavailable ENGRUSTYR G TONI Attending Unavailable Nico Lino DO Primary Care Provider [phone] Nico Lino DO Attending Provider Mabel Murdock CMA Attending Provider Unavaila ble Allergies Allergy Classification Reported Allergen(s) Allergy Type Date of Onset Reaction(s) Facility (1 source) Shellfish Containing Products Drug allergy (disorder) 9 [facility] (3 sources) Seafood; Translations: [Seafood] Drug allergy Itching [facility] (1 source) patient allergy list reviewed by nurse or physicia Propensity to adverse reactions Comment:Done [facility] Other (1 source) Shrimp product; Translations: [Shrimp] Propensity to adverse reactions (disorder) [facility] Repository (1 source) No Known Medication Allergies; Translations: [No Known Medication Allergies] Propensity to adverse reactions (disorder) [facility] Repository Medications Current Medications Medication Drug [...] Active folic acid 1 mg oral tablet (20 sources) Start: 08-19-2024 take 1 tablet by [...] 2024 8:31am glipiZIDE 5 mg oral tablet (7 sources) Sulfonylurea Start: 03-24-2025 End: 04-16-2025 take [...] pantoprazole 40 mg delayed release oral tablet (6 sources) Proton Pump Inhibitor Start: 03-25-2025 End: [...] Active propylene glycol 6 mg/ml ophthalmic solution (6 sources) Start: 07-30-2024 Propylene Glyc ol (Systane [...] # 30 cap(s), Refills(s) 11, Pharmacy: [id number], 173, cm, 11/02/21 11:02:00 [...] by mouth. celecoxib 200 mg oral capsule (10 sources) Nonsteroidal Anti-inflammatory Drug Start: 11-22-19 End: 05-28-20 take 1 capsule by mouth [...] oral tablet (20 sources) Sulfonylurea Start: 07-20-20 End: 04-16-20 take 1 tablet by mouth [...] to other specified organisms] Episodic Anxiety disorders (13 sources) Generalized anxiety disorder; Translations: [Generalized anxiety disorder] Chronic Appendicitis and other appendiceal conditions (2 sources) Appendicitis 06-16-2021 Episodic Cancer of prostate (20 sources) Malignant tumor of prostate; Translations: [Malignant neoplasm of prostate] Onset: 02-17-2021 Chronic Comment on above: TRUS/Bx 2020Gleason 4+3, group 3EBT, Brachytherapy and ADT TRUS/Bx 2020,Langley 4+3, group 3,EBT, Brachytherapy and ADT Cataract (6 sources) Bilateral age-related nuclear cataracts; Translations: [Age-related nuclear cataract, bilateral] Onset: 05-14-2024 07-02-2024 Chronic Chronic kidney disease (15 sources) Chronic kidney disease; Translations: [Chronic kidney [...] [Anemia, unspecified] Episodic Deficiency and other anemia (20 sources) Pernicious anemia; Translations: [Vitamin B12 deficiency anemia due to intrinsic factor deficiency] 11-23-2023 Episodic Deficiency and other anemia (2 sources) Vitamin B12 deficiency anemia due to intrinsic factor deficiency Episodic Deficiency and other anemia (1 source) Folate deficiency anemia, unspecified Episodic Deficiency and other anemia (7 sources) Nutritional anemia; Translations: [Folate deficiency anemia, [...] object(s), not elsewhere classified, initial encounter; Translations: [[facility] OTH SHRP OB NOT ELSW [...] Onset: 01-09-2023 Episodic Open wounds of extremities (5 sources) Unspecified open wound of left middle finger without damage to nail, initial encounter; Translations: [Laceration of upper arm] Onset: 01-05-2023 Episodic Other aftercare (4 sources) H/O: high risk medication; Translations: [Other jail (current) drug therapy] Episodic Other aftercare (1 source) 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; Translations: [OTH INTERMEDIATE CURRENT DRUG THERAPY] Onset: 01-09-2023 Episodic Other aftercare (1 source) intermediate school teacher (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) use of aspirin; Translations: [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 ASPIRIN] Onset: 01-09-2023 Episodic Other aftercare (1 source) intermediate school teacher (current) use of oral hypoglycemic drugs; Translations: [INTERMEDIATE USE ORAL HYPOGLYCEMIC DX] Onset: 01-09-2023 Episodic Other aftercare (1 source) Long-term current use of drug therapy; Translations: [Other jail (current) drug therapy] Episodic Other diseases of kidney and ureters (1 source) Urinary tract obstruction; Translations: [Other obstructive and reflux uropathy] Onset: 11-01-2022 Episodic Other diseases of veins and lymphatics (20 sources) Peripheral venous insufficiency; Translations: [Venous insufficiency (chronic) (peripheral)] 11-23-2023 Episodic Other diseases of veins and lymphatics (4 sources) Venous insufficiency (chronic) (peripheral); Translations: [Venous (peripheral) insufficiency, unspecified] Episodic Other injuries and conditions due to external causes (1 source) History of fall; Translations: [History of falling] Episodic Other non-traumatic joint disorders (5 sources) Hip pain; Translations: [Pain in right [...] Chronic Other nutritional; endocrine; and metabolic disorders (14 sources) Weight decreased; Translations: [Abnormal weight loss] 03-24-2025 Episodic Other upper respiratory disease (5 sources) Allergic rhinitis due to pollen; Translations: [Allergic rhinitis due to pollen] Chronic Spondylosis; intervertebral disc disorders; other back problems (4 sources) Lumbar spondylosis; Translations: [Spondylosis without myelopathy or radiculopathy, lumbar region] 11-21-2024 Chronic Spondylosis; intervertebral disc disorders; other back problems (8 sources) Low back pain; Translations: [Low back [...] (Bld) [#/Vol] Ordered By: Nico Lino on 06-02-2025 Basophils (Bld) [#/Vol] 0.2 10 3/uL High 0.0-0.1 [facility] Basophils/100 WBC Auto (Bld) Ordered By: Nico Lino on 06-02-2025 Basophils/100 WBC (Bld) 1.5 % 0.2-2.0 [facility] Eosinophils/100 WBC Auto (Bl d)Ordered By: Nico iLno on 06-02-2025 Eosinophils/100 WBC (Bld) 4.4 % 0.9-7.0 [facility] Erythrocyte distribution wid th Auto (RBC) [Ratio]Ordered By: Nico Lino on 06-02-2025 Erythrocyte distribution width (RBC) [Ratio] 15.0 % 11.0-15.0 [facility] Globulin Calc (S) [Mass/Vol] Ordered By: Nico Lino on 06-02-2025 Globulin (S) [Mass/Vol] 4.9 g/dL [facility] Glomerular filtration rate ( GFR) estimation in non- AmericanOrdered By: Nico Lino on 06-02-2025 GFR/1.73 sq M.predicted among non-blacks MDRD (S/P/Bld) [Vol rate/Area] 37 mL/min/{1.73_m2} Low >=60 mL/min/1.73m 2 [facility] Hematocrit Auto (Bld) [Volum e fraction]Ordered By: Nico Lino on 06-02-2025 Hematocrit (Bld) [Volume fraction] 38.1 % Low 42.0-54.0 [facility] Hemoglobin [Mass/volume] in BloodOrdered By: Nico Lino on 06-02-2025 Hemoglobin (Bld) [Mass/Vol] 12.7 g/dL Low 14.0-18.0 [facility] Laboratory - Chemistry and C hemistry - challengeOrdered By: Nico Lino on 06-02-2025 Albumin [Mass/Vol] 3.4 g/dL 3.4-5.0 [facility] ALP [Catalytic activity/Vol] 86 U/L 46-116 [facility] ALT [Catalytic activity/Vol] 30 U/L 16-63 [facility] AST [Catalytic activity/Vol] 26 U/L 15-37 [facility] Bilirubin [Mass/Vol] 0.5 mg/dL 0.2-1.0 [facility] Calcium [Mass/Vol] 9.3 mg/dL 8.5-10.1 [facility] Chloride [Moles/Vol] 103 mmol/L 98-107 [facility] CO2 [Moles/Vol] 24.1 mmol/L 21.0-32.0 [facility] Creatinine [Mass/Vol] 1.79 mg/dL High 0.70-1.30 [facility] Free T4 [Mass/Vol] 1.27 ng/dL 0.76-1.46 [facility] GFR/1.73 sq M.predicted MDRD (S/P/Bld) [Vol rate/Area] 45 mL/min/{1.73_m2} Low >=60 mL/min/1.73m 2 [facility] Glucose [Mass/Vol] 135 mg/dL High 74-106 [facility] Potassium [Moles/Vol] 4.4 mmol/L 3.5-5.1 [facility] Protein [Mass/Vol] 8.3 g/dL High 6.4-8.2 [facility] Sodium [Moles/Vol] 138 mmol/L 136-145 [facility] TSH Qn 6.659 m[IU]/L High 0.358-3.740 [facility] Urea nitrogen [Mass/Vol] 31.0 mg/dL High 7.0-18.0 [facility] Urea nitrogen/Creatinine [Mass ratio] 17.3 mg/mg [facility] Laboratory - Hematology and Cell countsOrdered By: Nico Lino on 06-02-2025 Immature granulocytes/100 WBC (Bld) 0.3 % 0.0-0.5 [facility] Leukocytes [#/volume] correc opal for nucleated erythrocytes in Blood by Automated counOrdered By: Nico Lino on 06-02-2025 WBC corrected for nucl RBC Auto (Bld) [#/Vol] 10.5 10 3/uL 4.0-11.0 [facility] Lymphocytes Auto (Bld) [#/Vo l]Ordered By: Nico Lino on 06-02-2025 Lymphocytes (Bld) [#/Vol] 2.1 10 3/uL 1.2-3.8 [facility] Lymphocytes/100 WBC Auto (Bl d)Ordered By: Nico Lino on 06-02-2025 Lymphocytes/100 WBC (Bld) 20.3 % Low 20.5-60.0 [facility] MCH Auto (RBC) [Entitic mass ]Ordered By: Nico Lino on 06-02-2025 MCH (RBC) [Entitic mass] 29.4 pg 25.9-34.0 [facility] MCHC Auto (RBC) [Mass/Vol]Or dered By: Nico Lino on 06-02-2025 MCHC (RBC) [Mass/Vol] 33.3 g/dL 29.9-35.2 [facility] MCV Auto (RBC) [Entitic vol] Ordered By: Nico Lino on 06-02-2025 MCV (RBC) [Entitic vol] 88.2 fL 80.0-94.0 [facility] Monocytes Auto (Bld) [#/Vol] Ordered By: Nico Lino on 06-02-2025 Monocytes (Bld) [#/Vol] 0.8 10 3/uL 0.3-0.8 [facility] Monocytes/100 WBC Auto (Bld) Ordered By: Nico Lino on 06-02-2025 Monocytes/100 WBC (Bld) 7.4 % 1.7-12.0 [facility] Neutrophils Auto (Bld) [#/Vo l]Ordered By: Nico Lino on 06-02-2025 Neutrophils (Bld) [#/Vol] 6.9 10 3/uL High 1.4-6.5 [facility] Neutrophils/100 WBC Auto (Bl d)Ordered By: Nico Lino on 06-02-2025 Neutrophils/100 WBC (Bld) 66.1 % 43.0-75.0 [facility] No Panel InformationOrdered By: Nico Lino on 06-02-2025 Eosinophils # (Auto) 0.5 10 3/uL 0.0-0.7 [facility] Immature Granulocyte # (Auto) 0.03 10 3/uL 0.00-0.03 [facility] Prostate Specific Antigen Total 2.75 ng/mL <=4.00 [facility] Total Triiodothyronine 110 ng/dL 71-180 [facility] Comment on above: Performed at: [facility] - [facility] [address] [id number] Director: Rocco Lopez PhD, Phone: [phone] No Panel InformationOrdered By: Yuan Bartlett on 06-02-2025 Testosterone Level 401 ng/dL 264-916 [facility] Comment on above: Adult male reference interval is based on a population ofhealthy nonobese males (BMI <30) between 19 and 39 yearsold. Elysia et.al. JCEM 2017,102;9091-4553. PMID:[id number].Performed at: [email or web address] - [facility] [address] [id number] Director: Rocco Lopez PhD, Phone: [phone] Platelet mean volume Auto (B ld) [Entitic vol]Ordered By: Nico Lino on 06-02-2025 Platelet mean volume (Bld) [Entitic vol] 11.4 fL 9.5-13.5 [facility] Platelets Auto (Bld) [#/Vol] Ordered By: Nico Lino on 06-02-2025 Platelets (Bld) [#/Vol] 378 10 3/uL 150-450 [facility] RBC Auto (Bld) [#/Vol]Ordere d By: Nico Lino on 06-02-2025 RBC (Bld) [#/Vol] 4.32 10 6/uL Low 4.70-6.10 [facility] Serum or plasma albumin/glob ulin mass ratioOrdered By: Nico Lino on 06-02-2025 Albumin/Globulin [Mass ratio] 0.7 {ratio} [facility] Serum or plasma anion gap de terminationOrdered By: Nico Lino on 06-02-2025 Anion gap [Moles/Vol] 15.3 mmol/L [facility] Basophils Auto (Bld) [#/Vol] Ordered By: Nico Lino on 03-24-2025 Basophils (Bld) [#/Vol] 0.2 10 3/uL High 0.0-0.1 [facility] Basophils/100 WBC Auto (Bld) Ordered By: Nico Lino on 03-24-2025 Basophils/100 WBC (Bld) 1.6 % 0.2-2.0 [facility] Eosinophils/100 WBC Auto (Bl d)Ordered By: Nico Lino on 03-24-2025 Eosinophils/100 WBC (Bld) 5.4 % 0.9-7.0 [facility] Erythrocyte distribution wid th Auto (RBC) [Ratio]Ordered By: Nico Lino on 03-24-2025 Erythrocyte distribution width (RBC) [Ratio] 15.3 % High 11.0-15.0 [facility] Estimated glomerular filtrat ion rate (GFR) non- AmericanOrdered By: Nico Lino on 03-24-2025 GFR/1.73 sq M.predicted among non-blacks MDRD (S/P/Bld) [Vol rate/Area] 38 mL/min/{1.73_m2} Low >=60 mL/min/1.73m 2 [facility] Globulin Calc (S) [Mass/Vol] Ordered By: Nico Lino on 03-24-2025 Globulin (S) [Mass/Vol] 4.4 g/dL [facility] Hematocrit Auto (Bld) [Volum e fraction]Ordered By: Nico Lino on 03-24-2025 Hematocrit (Bld) [Volume fraction] 36.7 % Low 42.0-54.0 [facility] Hemoglobin [Mass/volume] in BloodOrdered By: Nico Lino 03-24-2025 Hemoglobin (Bld) [Mass/Vol] 12.2 g/dL Low 14.0-18.0 [facility] Laboratory - Chemistry and C hemistry - challengeOrdered By: Nico Lino on 03-24-2025 Albumin [Mass/Vol] 3.4 g/dL 3.4-5.0 [facility] ALP [Catalytic activity/Vol] 90 U/L 46-116 [facility] ALT [Catalytic activity/Vol] 25 U/L 16-63 [facility] Amylase [Catalytic activity/Vol] 62 U/L 25-115 [facility] AST [Catalytic activity/Vol] 18 U/L 15-37 [facility] Bilirubin [Mass/Vol] 0.3 mg/dL 0.2-1.0 [facility] Calcium [Mass/Vol] 9.0 mg/dL 8.5-10.1 [facility] Chloride [Moles/Vol] 107 mmol/L 98-107 [facility] CO2 [Moles/Vol] 21.2 mmol/L 21.0-32.0 [facility] Creatinine [Mass/Vol] 1.75 mg/dL High 0.70-1.30 [facility] Ferritin [Mass/Vol] 174.0 ng/mL 26.0-388.0 [facility] GFR/1.73 sq M.predicted MDRD (S/P/Bld) [Vol rate/Area] 46 mL/min/{1.73_m2} Low >=60 mL/min/1.73m 2 [facility] Glucose [Mass/Vol] 108 mg/dL High 74-106 [facility] Lipase [Catalytic activity/Vol] 46.0 U/L 16.0-77.0 [facility] Potassium [Moles/Vol] 4.7 mmol/L 3.5-5.1 [facility] Protein [Mass/Vol] 7.8 g/dL 6.4-8.2 [facility] Sodium [Moles/Vol] 141 mmol/L 136-145 [facility] Urea nitrogen [Mass/Vol] 34.0 mg/dL High 7.0-18.0 [facility] Urea nitrogen/Creatinine [Mass ratio] 19.4 mg/mg [facility] Laboratory - Hematology and Cell countsOrdered By: Nico Lino on 03-24-2025 Immature granulocytes/100 WBC (Bld) 0.2 % 0.0-0.5 [facility] Leukocytes [#/volume] correc opal for nucleated erythrocytes in Blood by Automated counOrdered By: Nico Lino on 03-24-2025 WBC corrected for nucl RBC Auto (Bld) [#/Vol] 10.0 10 3/uL 4.0-11.0 [facility] Lymphocytes Auto (Bld) [#/Vo l]Ordered By: Nico Lino on 03-24-2025 Lymphocytes (Bld) [#/Vol] 1.8 10 3/uL 1.2-3.8 [facility] Lymphocytes/100 WBC Auto (Bl d)Ordered By: Nico Lino on 03-24-2025 Lymphocytes/100 WBC (Bld) 17.5 % Low 20.5-60.0 [facility] MCH Auto (RBC) [Entitic mass ]Ordered By: Nico Lino on 03-24-2025 MCH (RBC) [Entitic mass] 30.0 pg 25.9-34.0 [facility] MCHC Auto (RBC) [Mass/Vol]Or dered By: Nico Lino on 03-24-2025 MCHC (RBC) [Mass/Vol] 33.2 g/dL 29.9-35.2 [facility] MCV Auto (RBC) [Entitic vol] Ordered By: Nico Lino on 03-24-2025 MCV (RBC) [Entitic vol] 90.4 fL 80.0-94.0 [facility] Monocytes Auto (Bld) [#/Vol] Ordered By: Nico Lino on 03-24-2025 Monocytes (Bld) [#/Vol] 0.8 10 3/uL 0.3-0.8 [facility] Monocytes/100 WBC Auto (Bld) Ordered By: Nico Lino on 03-24-2025 Monocytes/100 WBC (Bld) 7.6 % 1.7-12.0 [facility] Neutrophils Auto (Bld) [#/Vo l]Ordered By: Nico Lino on 03-24-2025 Neutrophils (Bld) [#/Vol] 6.8 10 3/uL High 1.4-6.5 [facility] Neutrophils/100 WBC Auto (Bl d)Ordered By: Nico Lino on 03-24-2025 Neutrophils/100 WBC (Bld) 67.7 % 43.0-75.0 [facility] No Panel InformationOrdered By: Nico Lino on 03-24-2025 Eosinophils # (Auto) 0.5 10 3/uL 0.0-0.7 [facility] Folate 25.80 ng/mL 8.60-58.90 [facility] Immature Granulocyte # (Auto) 0.02 10 3/uL 0.00-0.03 [facility] Vitamin B12 Level >2000 pg/mL Abnormal 232-1245 [facility] Comment on above: Performed at: [facility] [address] [id number] Director: Rocco Lopez PhD, Phone: [phone] Platelet mean volume Auto (B ld) [Entitic vol]Ordered By: Nico Lino on 03-24-2025 Platelet mean volume (Bld) [Entitic vol] 11.2 fL 9.5-13.5 [facility] Platelets Auto (Bld) [#/Vol] Ordered By: Nico Lino on 03-24-2025 Platelets (Bld) [#/Vol] 398 10 3/uL 150-450 [facility] RBC Auto (Bld) [#/Vol]Ordere d By: Nico Lino on 03-24-2025 RBC (Bld) [#/Vol] 4.06 10 6/uL Low 4.70-6.10 [facility] Serum or plasma albumin/glob ulin mass ratioOrdered By: Nico Lino on 03-24-2025 Albumin/Globulin [Mass ratio] 0.8 {ratio} [facility] Serum or plasma anion gap de terminationOrdered By: Nico Lino on 03-24-2025 Anion gap [Moles/Vol] 17.5 mmol/L [facility] Glucose mean value [Mass/vol ume] in Blood Estimated from glycated hemoglobinOrdered By: Nico Lino on 03-18-2025 Average glucose Estimated from glycated hemoglobin (Bld) [Mass/Vol] 163 mg/dL [facility] Hemoglobin A1c percentageOrd ered By: Nico Lino on 03-18-2025 HbA1c (Bld) [Mass fraction] 7.3 % High 4.5-6.2 [facility] Comment on above: ADA RECOMMENDED LIMI T 4.0 - 6.0ADA THERAPEUTIC TARGET < 7.0ACTION SUGGESTED> 7.0 CNOVon 12-10-2024 CNOV Office Visit (RADTSA) ---- SEGUN JOHNSON ([id number]) 1945 M Date Time Provider Department 12/10/24 [...] ASSESSMENT/PLAN: Prostate adenocarcinoma, 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 Clinically doing well. PSA with minimal manager exchange the last 3 to 4 months. Has risen over the last 12 months still likely related to testosterone recovery after prior ADT. Recommend continued close observation. If continues to climb consider PSMA PET. Signed by: Yuan Bartlett MD cc: Nico Lino (Mikhail) [facility] [id number] Portions of the above note extracted and edited from previous visit as well as active information included in the EMR. Allergies As of Date: 12/10/2024 (No Known Allergies) Date Reviewed: 12/10/2024 Reviewed by: Katiana Acharya RN - Fully Assessed Reason for Visit: Prostate Cancer [590] Primary Visit Diagnosis:Cancer of prostate w/med recur risk (T2b-c or Asaf 7 or PSA 10-20) ([facility]) [C61] Order(s):PSA (OUTSIDE) [[id number]] Order #: [id number] PROSTATE-SPECIFIC ANTIGEN DIAGNOSTIC [SQPSA] Order #: [id number] FUTURE TESTOSTERONE, TOTAL BY IMMUNOASSAY (ADULT MALES, OR INDIVIDUALS ON TESTOSTERONE THERAPY) [SQTESTO] Order #: [id number] FUTURE Prescriptions as of 12/17/2024 - folic [...] - glim (more content not included)... Normal [facility] PSA (OUTSIDE)on 11-21-2024 [facility] CNOVon 08-09-2024 CNOV Office Visit (RADTSA) ---- SEGUN JOHNSON ([id number]) 1945 M Date Time Provider Department 08/09/24 [...] DIAGNOSIS: Prostate adenocarcinoma, initial PSA 11.5, biopsy Langley score 4 + 3 = 7 (grade [...] ASSESSMENT/PLAN: Prostate adenocarcinoma, initial PSA 11.5, biopsy Langley score 4 + 3 = 7 (grade [...] by: Yuan Bartlett MD cc: Nico Lino ([facility]) [address] [place] [address] Dr. Storey Portions of the above note extracted and edited from previous visit as well as active information included in the EMR. Referring Provider: Yuan BARTLETT [[id number]] Allergies As of Date: 08/09/2024 (No Known Allergies) Date Reviewed: 08/09/2024 Reviewed by: Jillian Waddell LPN - Fully Assessed Reason for Visit: Prostate Cancer [590] Primary Visit Diagnosis:Cancer of prostate w/med recur risk (T2b-c or Asaf 7 or PSA 10-20) (HCC) [C61] Order(s):PSA (OUTSIDE) [[id number]] Order #: [id number] PROSTATE-SPECIFIC ANTIGEN DIAGNOSTIC [SQPSA] Order #: [id number] FUTURE TESTOSTERONE, TOTAL BY IMMUNOASSAY (ADULT MALES, OR INDIVIDUALS ON TESTOSTERONE THERAPY) [SQTESTO] Order #: [id number] FUTURE Prescriptions as of 08/09/2024 - folic [...] - l (more content not included)... Normal [facility] PSA (OUTSIDE)on 07-30-2024 [facility] US Eye+Orbit - bilateralon 0 05-14-2024 Diagnosis: Cataract both eyes (OU) Testing Indication: Performed for preop measurements in the determination of an intraocular lens (IOL) for both eyes (OU) Test Reliability: Good quality both eyes (OU) Interpretation: Good measurements for intraocular lens (IOL) calculation purposes. Calculation made for both eyes (OU). [facility] Radiology Study observation (narrative) [facility] Glucose mean value [Mass/vol ume] in Blood Estimated from glycated hemoglobinon 03-26-2024 Average glucose Estimated from glycated hemoglobin (Bld) [Mass/Vol] 163 mg/dL [facility] Laboratory - Hematology and Cell countson 03-26-2024 HbA1c (Bld) [Mass fraction] 7.3 % High 4.5-6.2 [facility] Comment on above: ADA RECOMMENDED LIMI T 4.0 - 6.0ADA THERAPEUTIC TARGET < 7.0ACTION SUGGESTED> 7.0 Consultation Noteon 02-16-20 24 Consultation Note [id number] B#[id number] Normal [facility] CNOVon 02-15-2024 CNOV Office Visit (RADTSA) ---- SEGUN JOHNSON ([id number]) 1945 M Date Time Provider Department 02/15/24 10:00 AM Yuan BARTLETT During your visit today, we recorded the following information about you: Temperature Pulse Respiration Blood pressure 97.3 degrees 66/minute 18/minute 109/69 Weight 99.2 kg Layo December, [place] 02/15/2024 9:49 AM Signed AUA=9 Yuan Bartlett MD 02/15/2024 11:26 AM Signed Radiation Oncology - Follow Up Note PATIENT NAME: Segun Johnson PATIENT DIAGNOSIS: Prostate adenocarcinoma, initial PSA 11.5, biopsy Langley score 4 + 3 = 7 (grade [...] ASSESSMENT/PLAN: Prostate adenocarcinoma, initial PSA 11.5, biopsy Langley score 4 + 3 = 7 (grade [...] by: Yuan Bartlett MD cc: Nico Lino (Sanjeev) [address] [place] [address] Dr. Storey Portions of the above note extracted and edited from previous visit as well as active information included in the EMR. Referring Provider: Yuan BARTLETT [[id number]] Allergies As of Date: 02/15/2024 (No Known Allergies) Date Reviewed: 02/15/2024 Reviewed by: Venus Vasques MA - Fully Assessed Reason for Visit: Prostate Cancer [590] Cmt: Follow up Primary Visit Diagnosis:Cancer of prostate w/med recur risk (T2b-c or Langley 7 or PSA 10-20) ([facility]) [C61] Order(s):PSA (OUTSIDE) [[id number]] Order #: [id number] PROSTATE-SPECIFIC ANTIGEN DIAGNOSTIC [SQPSA] Order #: [id number] FUTURE Prescriptions as of 02/15/2024 - cyanocobalamin, [...] (HCC) [C61] 08/17/2022 Visit Notes: >> Layo VenusFEDERIOC Elsi February 15, 2024 9:47 AM Status: Signed AUA=9 Disposition: Return in about 6 months (around 08/17/2024). Follow-up and Disposition History for Encounter Date Provider Department Center 02/15/2024 [id number] BARTLETT Encounter Status:Closed by Yuan BARTLETT on 02/15/[address] [facility] No Panel Informationon 02-13 Prostate Specific Antigen Total 0.61 ng/mL <=4.00 [facility] PSA (OUTSIDE)on 02-14-2024 [facility] GLYCOHEMOGLOBIN A1Con 2022 ADA RECOMMENDATION SEE BELOW Normal [facility] Comment on above: Result Comment: ADA RECOMMENDED LIMIT 4.0 - 6.0 ADA THERAPEUTIC TARGET < 7.0 ACTION SUGGESTED > 7.0 Performed By: #### A 1C #### [facility] [address] [place] [address] [id number] [address] Radha Brown Glucose [Mass/Vol] 186 mg/dL Normal [facility] Comment on above: Performed By: #### A 1C #### [facility] [address] [place] [address] Dr. Radha Brown HbA1c (Bld) [Mass fraction] 8.1 % Critically high 4.5-6.2 [facility] Comment on above: Performed By: #### A 1C #### [facility] [address] [place] [address] Dr. Radha Brown CBC AUTO DIFFon 07-29-2022 BASO # 0.1 103/ul Normal 0.0-0.1 [facility] Comment on above: Performed By: #### C BC #### [facility] [address] [place] [address] Dr. Radha Brown Basophils/100 WBC (Bld) 0.9 % Normal 0.2-2.0 [facility] Comment on above: Performed By: #### C BC #### [facility] [address] [place] [address] Dr. Radha Brown EO # 0.5 103/ul Normal 0.0-0.7 [facility] Comment on above: Performed By: #### C BC #### [facility] [address] [place] [address] Dr. Radha Brown Eosinophils/100 WBC (Bld) 5.5 % Normal 0.9-7.0 [facility] Comment on above: Performed By: #### C BC #### [facility] [address] [place] [address] Dr. Radha Brown Erythrocyte distribution width (RBC) [Ratio] 15.0 % Normal 11.0-15.0 [facility] Comment on above: Performed By: #### C BC #### [facility] [address] [place] [address] Dr. Radha Brown Hematocrit (Bld) [Volume fraction] 35.6 % Critically low 42.0-54.0 [facility] Comment on above: Performed By: #### C BC #### [facility] [address] [place] [address] Dr. Radha Brown Hemoglobin (Bld) [Mass/Vol] 11.8 g/dL Critically low 14.0-18.0 [facility] Comment on above: Performed By: #### C BC #### [facility] [address] [address] [address] Radha Brown IG # 0.05 10e3/ul Critically high 0.00-0.03 [facility] Comment on above: Performed By: #### C BC #### [facility] [address] [address] [address] Radha Brown IG % 0.5 % Normal 0.0-0.5 [facility] Comment on above: Performed By: #### C BC #### [facility] [address] [place] [address] Dr. Radha Brown LYMPH # 1.8 103/ul Normal 1.2-3.8 [facility] Comment on above: Performed By: #### C BC #### [facility] [address] [place] [address] Dr. Radha Brown Lymphocytes/100 WBC (Bld) 19.3 % Critically low 20.5-60.0 [facility] Comment on above: Performed By: #### C BC #### [facility] [address] [place] [address] Dr. Radha Brown MANUAL DIFF REQ NO Normal [facility] Comment on above: Performed By: #### C BC #### [facility] [address] [place] [address] Dr. Radha Brown MCH (RBC) [Entitic mass] 29.2 pg Normal 25.9-34.0 [facility] Comment on above: Performed By: #### C BC #### [facility] [address] [place] [address] Dr. Radha Brown MCHC (RBC) [Mass/Vol] 33.1 g/dL Normal 29.9-35.2 [facility] Comment on above: Performed By: #### C BC #### [facility] [address] [place] [address] Dr. Radha Brown MCV (RBC) [Entitic vol] 88.1 fL Normal 80.0-94.0 [facility] Comment on above: Performed By: #### C BC #### [facility] [address] [place] [address] Dr. Radha Brown MONO # 0.6 103/ul Normal 0.3-0.8 [facility] Comment on above: Performed By: #### C BC #### [facility] [address] [place] [address] Dr. Radha Brown Monocytes/100 WBC (Bld) 6.4 % Normal 1.7-12.0 [facility] Comment on above: Performed By: #### C BC #### [facility] [address] [place] [address] Dr. Radha Brown NEUT # 6.4 103/ul Normal 1.4-6.5 [facility] Comment on above: Performed By: #### C BC #### [facility] [address] [place] [address] Dr. Radha Brown Neutrophils/100 WBC (Bld) 67.4 % Normal 43.0-75.0 [facility] Comment on above: Performed By: #### C BC #### [facility] [address] [place] [address] Dr. Radha Brown Platelet mean volume (Bld) [Entitic vol] 9.2 fL Critically low 9.5-13.5 [facility] Comment on above: Performed By: #### C BC #### [facility] [address] [place] [address] Dr. Radha Brown PLT 232 103/ul Normal 150-450 [facility] Comment on above: Performed By: #### C BC #### [facility] [address] [place] [address] Dr. Radha Brown RBC 4.04 106/ul Critically low 4.70-6.10 [facility] Comment on above: Performed By: #### C BC #### [facility] [address] [place] [address] Dr. Radha Brown WBC 9.5 103/ul Normal 4.0-11.0 [facility] Comment on above: Performed By: #### C BC #### [facility] [address] [place] [address] Dr. Radha Brown FERRITINon 11-11-2022 Ferritin [Mass/Vol] 164.0 ng/mL Normal 26.0-388.0 [facility] Comment on above: Performed By: #### P SAD, FOL, FERR, FETIBC #### [facility] [address] [address] [address] Radha Brown FOLATEon 07-29-2022 FOLATE 7.60 ng/mL Critically low 8.60-58.90 [facility] Comment on above: Performed By: #### P SAD, FOL, FERR, FETIBC #### [facility] [address] [address] [address] Radha Brown GLYCOHEMOGLOBIN A1Con 2021 ADA RECOMMENDATION SEE BELOW Normal [facility] Comment on above: Result Comment: ADA RECOMMENDED LIMIT 4.0 - 6.0 ADA THERAPEUTIC TARGET < 7.0 ACTION SUGGESTED > 7.0 Performed By: #### A 1C #### [facility] [address] [address] [address] Radha Brown Glucose [Mass/Vol] 134 mg/dL Normal [facility] Comment on above: Performed By: #### A 1C #### [facility] [address] [address] [address] Radha Brown HbA1c (Bld) [Mass fraction] 6.3 % Critically high 4.5-6.2 [facility] Comment on above: Performed By: #### A 1C #### [facility] [address] [address] [address] Radha Brown IRON AND TIBCon 07-29-2022 % SATURATION 22.1 % Normal [facility] Comment on above: Performed By: #### P SAD, FOL, FERR, FETIBC #### [facility] [address] [address] [address] Radha Brown Iron [Mass/Vol] 78.0 ug/dL Normal 65.0-175.0 [facility] Comment on above: Performed By: #### P SAD, FOL, FERR, FETIBC #### [facility] [address] [address] [address] Radha Brown TIBC DIRECT 353.0 ug/dL Normal 250.0-450.0 [facility] Comment on above: Performed By: #### P SAD, FOL, FERR, FETIBC #### [facility] [address] [address] [address] Radha Brown LIPID PROFILEon 07-29-2022 CHOL-HDL RATIO NORM SEE BELOW Normal [facility] Comment on above: Result Comment: 3.3 - 4.4 LOW RISK 4.4 - 7.1 AVERAGE RISK 7.1 - 11.0 MODERATE RISK >11.0 HIGH RISK Performed By: #### P SAD, FOL, FERR, FETIBC #### [facility] [address] [address] [address] Radha Brown Cholesterol [Mass/Vol] 137 mg/dL Normal <=200 [facility] Comment on above: Performed By: #### P SAD, FOL, FERR, FETIBC #### [facility] [address] [place] [address] Dr. Radha Brown Cholesterol in HDL [Mass/Vol] 37 mg/dL Critically low 40-60 [facility] Comment on above: Performed By: #### P SAD, FOL, FERR, FETIBC #### [facility] [address] [address] [address] Radha Brown Cholesterol in LDL [Mass/Vol] 67.0 mg/dL Normal [facility] Comment on above: Performed By: #### P SAD, FOL, FERR, FETIBC #### [facility] [address] [address] [address] Radha Brown Cholesterol.total/Choles terol in HDL [Mass ratio] 3.7 {ratio} Normal [facility] Comment on above: Performed By: #### P SAD, FOL, FERR, FETIBC #### [facility] [address] [place] [address] Dr. Radha Brown HDL NORMAL > or = 60 mg/dl - LOW CARDIOVASCULAR RISK <40 mg/dl - HIGH CARDIOVASCULAR RISK Normal [facility] Comment on above: Performed By: #### P SAD, FOL, FERR, FETIBC #### [facility] [address] [address] [address] Radha Brown LDL CALC NORMAL SEE BELOW Normal [facility] Comment on above: Result Comment: <100 mg/dl OPTIMAL 100 - 129 mg/dl NEAR OR ABOVE OPTIMAL 130 - 159 mg/dl BORDERLINE HIGH 160 - 189 mg/dl HIGH >190 mg/dl VERY HIGH Performed By: #### P SAD, FOL, FERR, FETIBC #### [facility] [address] [address] [address] Radha Brown Triglyceride [Mass/Vol] 165 mg/dL Critically high <=150 [facility] Comment on above: Performed By: #### P SAD, FOL, FERR, FETIBC #### [facility] [address] [address] [address] Radha Brown VLDL CALC 33.0 mg/dL Normal [facility] Comment on above: Performed By: #### P SAD, FOL, FERR, FETIBC #### [facility] [address] [place] [address] Dr. Radha Brown MICROALBUMIN, RAND URon 07-19 mALB <1.3 Normal <=30.0 [facility] Comment on above: Performed By: #### M ALBR #### [facility] [address] [place] [address] Dr. Radha Brown PROF CHEM 8 (BAS METB)on Anion gap [Moles/Vol] 9.1 mmol/L Normal [facility] Comment on above: Performed By: #### P SAD, FOL, FERR, FETIBC #### [facility] [address] [address] [address] Radha Brown Calcium [Mass/Vol] 8.6 mg/dL Normal 8.5-10.1 [facility] Comment on above: Performed By: #### P SAD, FOL, FERR, FETIBC #### [facility] [address] [address] [address] Radha Brown Chloride [Moles/Vol] 106 mmol/L Normal 98-107 [facility] Comment on above: Performed By: #### P SAD, FOL, FERR, FETIBC #### [facility] [address] [address] [address] Radha Brown CO2 [Moles/Vol] 27.1 mmol/L Normal 21.0-32.0 [facility] Comment on above: Performed By: #### P SAD, FOL, FERR, FETIBC #### [facility] [address] [address] [address] Radha Brown Creatinine [Mass/Vol] 1.19 mg/dL Normal 0.70-1.30 [facility] Comment on above: Performed By: #### P SAD, FOL, FERR, FETIBC #### [facility] [address] [place] [address] Dr. Radha Brown EGFR-AF SINGAPOREAN >60 Normal >=60 [facility] Comment on above: Performed By: #### P SAD, FOL, FERR, FETIBC #### [facility] [address] [place] [address] Dr. Radha Brown EGFR-NON AF SINGAPOREAN 59 mL/min/1.73m2 Critically low >=60 [facility] Comment on above: Performed By: #### P SAD, FOL, FERR, FETIBC #### [facility] [address] [place] [address] Dr. Radha Brown Glucose [Mass/Vol] 137 mg/dL Critically high 74-106 T [facility] Comment on above: Performed By: #### P SAD, FOL, FERR, FETIBC #### [facility] [address] [place] [address] Dr. Radha Brown Potassium [Moles/Vol] 4.2 mmol/L Normal 3.5-5.1 [facility] Comment on above: Performed By: #### P SAD, FOL, FERR, FETIBC #### [facility] [address] [place] [address] Dr. Radha Brown Sodium [Moles/Vol] 138 mmol/L Normal 136-145 [facility] Comment on above: Performed By: #### P SAD, FOL, FERR, FETIBC #### [facility] [address] [address] [address] Radha Brown Urea nitrogen [Mass/Vol] 22.0 mg/dL Critically high 7.0-18 .0 [facility] Comment on above: Performed By: #### P ALANA ORDAZ FERR, FETIBC #### [facility] [address] [address] [address] Radha Brown Urea nitrogen/Creatinine [Mass ratio] 18.5 mg/mg Normal [facility] Comment on above: Performed By: #### P ALANA ORDAZ FERR, FETIBC #### [facility] [address] [address] [address] Radha Brown GLYCOHEMOGLOBIN A1Con 2021 ADA RECOMMENDATION SEE BELOW Normal [facility] Comment on above: Result Comment: ADA RECOMMENDED LIMIT 4.0 - 6.0 ADA THERAPEUTIC TARGET < 7.0 ACTION SUGGESTED > 7.0 Performed By: #### A 1C #### [facility] [address] [place] [address] Dr. Radha Brown Glucose [Mass/Vol] 154 mg/dL Normal [facility] Comment on above: Performed By: #### A 1C #### [facility] [address] [address] [address] Radha Brown HbA1c (Bld) [Mass fraction] 7.0 % Critically high 4.5-6.2 [facility] Comment on above: Performed By: #### A 1C #### [facility] [address] [place] [address] Dr. Radha Brown Vital Signs Date Time Vital Sign Value Performing Clinician Facility 06-03-2025 13:35-0400 Body height 175.26 cm SciAps DO Work Phone: [facility] 06-03-2025 13:35-0400 Body mass index (BMI) [Ratio] 27.5 kg/m2 Nico 25eight DO Work Phone: [facility] 06-03-2025 13:35-0400 Body weight 84.53 kg Sci[employer]ps DO Work Phone: [facility] 06-03-2025 13:35-0400 Diastolic blood pressure 72 mm[Hg] Nico Ball DO Work Phone: [facility] 06-03-2025 13:35-0400 Heart rate 71 /min Nico Ball DO Work Phone: [facility] 06-03-2025 13:35-0400 Respiratory rate 12 /min Nico Ball DO Work Phone: [facility] 06-03-2025 13:35-0400 Systolic blood pressure 103 mm[Hg] Nico Ball DO Work Phone: [facility] 05-28-2025 13:50-0400 Body height 175.26 cm Nico Ball DO Work Phone: [facility] 05-28-2025 13:50-0400 Body mass index (BMI) [Ratio] 28 kg/m2 Nico Ball DO Work Phone: [facility] 05-28-2025 13:50-0400 Body weight 85.95 kg Nico Ball DO Work Phone: [facility] 05-28-2025 13:50-0400 Diastolic blood pressure 71 mm[Hg] Nico Ball DO Work Phone: [facility] 05-28-2025 13:50-0400 Heart rate 60 /min Nico Ball DO Work Phone: [facility] 05-28-2025 13:50-0400 Respiratory rate 12 /min Inco Ball DO Work Phone: [facility] 05-28-2025 13:50-0400 Systolic blood pressure 106 mm[Hg] Nico Ball DO Work Phone: [facility] 04-16-2025 13:34-0400 Body height 175.26 cm Nico Ball DO Work Phone: [facility] 04-16-2025 13:34-0400 Body mass index (BMI) [Ratio] 27.6 kg/m2 Nico Ball DO Work Phone: [facility] 04-16-2025 13:34-0400 Body weight 84.93 kg Nico Ball DO Work Phone: [facility] 04-16-2025 13:34-0400 Diastolic blood pressure 52 mm[Hg] Nico Ball DO Work Phone: [facility] 04-16-2025 13:34-0400 Heart rate 88 /min Nico Ball DO Work Phone: [facility] 04-16-2025 13:34-0400 Respiratory rate 12 /min Nico Ball DO Work Phone: [facility] 04-16-2025 13:34-0400 Systolic blood pressure 101 mm[Hg] Nico Ball DO Work Phone: [facility] 03-24-2025 11:15-0400 Body height 175.26 cm Nico Ball DO Work Phone: [facility] 03-24-2025 11:15-0400 Body mass index (BMI) [Ratio] 28 kg/m2 Nico Ball DO Work Phone: [facility] 03-24-2025 11:15-0400 Body weight 85.95 kg Nico Ball DO Work Phone: [facility] 03-24-2025 11:15-0400 Diastolic blood pressure 62 mm[Hg] Nico Ball DO Work Phone: [facility] 03-24-2025 11:15-0400 Heart rate 58 /min Nico Ball DO Work Phone: [facility] 03-24-2025 11:15-0400 Respiratory rate 18 /min Nico Ball DO Work Phone: [facility] 03-24-2025 11:15-0400 Systolic blood pressure 96 mm[Hg] Nico Ball DO Work Phone: [facility] 12-10-2024 14:34-0400 Body mass index (BMI) [Ratio] 29.46 kg/m2 ANATOLY Bartlett MD Work Phone: [facility] 12-10-2024 14:34-0400 Body temperature 96.49 [degF] ANATOLY Bartlett MD Work Phone: [facility] 12-10-2024 14:34-0400 Body weight 91.8 kg ANATOLY Bartlett MD Work Phone: [facility] 12-10-2024 14:34-0400 Diastolic blood pressure 69 mm[Hg] ANATOLY Bartlett MD Work Phone: [facility] 12-10-2024 14:34-0400 Heart rate 60 /min ANATOLY Bartlett MD Work Phone: [facility] 12-10-2024 14:34-0400 Respiratory rate 18 /min ANATOLY Bartlett MD Work Phone: [facility] 12-10-2024 14:34-0400 SaO2% (BldA) [Mass fraction] 97 % ANATOLY Bartlett MD Work Phone: [facility] 12-10-2024 14:34-0400 Systolic blood pressure 112 mm[Hg] ANATOLY Bartlett MD Work Phone: [facility] 11-21-2024 09:57-0500 Body height 175.26 cm [facility] 11-21-2024 09:57-0500 Body mass index (BMI) [Ratio] 29.9 kg/m2 [facility] 11-21-2024 09:57-0500 Body weight 92.13 kg [facility] 11-21-2024 09:57-0500 Diastolic blood pressure 70 mm[Hg] [facility] 11-21-2024 09:57-0500 Heart rate 65 /min [facility] 11-21-2024 09:57-0500 Respiratory rate 14 /min [facility] 11-21-2024 09:57-0500 SaO2% (BldA) [Mass fraction] 95 % [facility] 11-21-2024 09:57-0500 Systolic blood pressure 124 mm[Hg] [facility] 08-09-2024 09:14-0500 Body mass index (BMI) [Ratio] 30.81 kg/m2 ANATOLY Bartlett MD Work Phone: [facility] 08-09-2024 09:14-0500 Body temperature 97.39 [degF] ANATOLY Bartlett MD Work Phone: [facility] 08-09-2024 09:14-0500 Body weight 96 kg ANATOLY Bartlett MD Work Phone: [facility] 08-09-2024 09:14-0500 Diastolic blood pressure 62 mm[Hg] ANATOLY Bartlett MD Work Phone: [facility] 08-09-2024 09:14-0500 Heart rate 70 /min ANATOLY Bartlett MD Work Phone: [facility] 08-09-2024 09:14-0500 Respiratory rate 16 /min ANATOLY Bartlett MD Work Phone: [facility] 08-09-2024 09:14-0500 SaO2% (BldA) [Mass fraction] 97 % ANATOLY Bartlett MD Work Phone: [facility] 08-09-2024 09:14-0500 Systolic blood pressure 105 mm[Hg] ANATOLY Bartlett MD Work Phone: [facility] 07-30-2024 11:20-0500 Body height 175.26 cm [facility] 07-30-2024 11:20-0500 Body mass index (BMI) [Ratio] 31.3 kg/m2 [facility] 07-30-2024 11:20-0500 Body weight 96.27 kg [facility] 07-30-2024 11:20-0500 Diastolic blood pressure 70 mm[Hg] [facility] 07-30-2024 11:20-0500 Heart rate 62 /min [facility] 07-30-2024 11:20-0500 Respiratory rate 12 /min [facility] 07-30-2024 11:20-0500 Systolic blood pressure 111 mm[Hg] [facility] 03-27-2024 11:06-0400 Body height 175.26 cm [facility] 03-27-2024 11:06-0400 Body mass index (BMI) [Ratio] 32.3 kg/m2 [facility] 03-27-2024 11:06-0400 Body weight 99.33 kg [facility] 03-27-2024 11:06-0400 Diastolic blood pressure 64 mm[Hg] [facility] 03-27-2024 11:06-0400 Heart rate 72 /min [facility] 03-27-2024 11:06-0400 Respiratory rate 20 /min [facility] 03-27-2024 11:06-0400 Systolic blood pressure 98 mm[Hg] [facility] 02-15-2024 09:44-0400 Body mass index (BMI) [Ratio] 31.83 kg/m2 ANATOLY Bartlett MD Work Phone: [facility] 02-15-2024 09:44-0400 Body temperature 97.3 [degF] ANATOLY Bartlett MD Work Phone: [facility] 02-15-2024 09:44-0400 Body weight 99.2 kg ANATOLY Bartlett MD Work Phone: [facility] 02-15-2024 09:44-0400 Diastolic blood pressure 69 mm[Hg] ANATOLY Bartlett MD Work Phone: [facility] 02-15-2024 09:44-0400 Heart rate 66 /min ANATOLY Bartlett MD Work Phone: [facility] 02-15-2024 09:44-0400 Respiratory rate 18 /min ANATOLY Bartlett MD Work Phone: [facility] 02-15-2024 09:44-0400 Systolic blood pressure 109 mm[Hg] ANATOLY Bartlett MD Work Phone: [facility] 08-17-2023 10:03-0500 Body temperature 96.91 [degF] ANATOLY Bartlett MD Work Phone: [facility] 08-17-2023 10:03-0500 Body weight 104.78 kg ANATOLY Bartlett MD Work Phone: [facility] 08-17-2023 10:03-0500 Diastolic blood pressure 75 mm[Hg] NA Dhruv WILSON Work Phone: [facility] 08-17-2023 10:03-0500 Heart rate 62 /min NA Dhruv WILSON Work Phone: [facility] 08-17-2023 10:03-0500 Respiratory rate 16 /min ANATOLY Bartlett MD Work Phone: [facility] 08-17-2023 10:03-0500 SaO2% (BldA) [Mass fraction] 95 % NA Dhruv WILSON Work Phone: [facility] 08-17-2023 10:03-0500 Systolic blood pressure 156 mm[Hg] NA Dhruv WILSON Work Phone: [facility] 07-26-2023 11:00-0500 Body height 175.26 cm Nico Ball Other [facility] Other 07-26-2023 11:00-0500 Body mass index (BMI) [Ratio] 33.37 kg/m2 Nico Ball Other [facility] Other 07-26-2023 11:00-0500 Body weight 102.51 kg Nico Ball Other [facility] Other 07-26-2023 11:00-0500 Diastolic blood pressure 83 mm[Hg] Nico Ball Other [facility] Other 07-26-2023 11:00-0500 Respiratory rate 12 /min Nico Ball Other [facility] Other 07-26-2023 11:00-0500 Systolic blood pressure 133 mm[Hg] Nico Ball Other [facility] Other 11-29-2022 14:30-0400 Body height 175.26 cm Nico Ball Other [facility] Other 11-29-2022 14:30-0400 Body mass index (BMI) [Ratio] 34.58 kg/m2 Nico Ball Other [facility] Other 11-29-2022 14:30-0400 Body weight 106.23 kg Nico Ball Other [facility] Other 11-29-2022 14:30-0400 Diastolic blood pressure 71 mm[Hg] Nico Ball Other [facility] Other 11-29-2022 14:30-0400 Respiratory rate 12 /min Nico Ball Other [facility] Other 11-29-2022 14:30-0400 Systolic blood pressure 118 mm[Hg] Nico Ball Other [facility] Other 11-01-2022 11:22-0500 Blood Pressure Location HENRIQUE DIALLO [facility] 11-01-2022 11:22-0500 Diastolic blood pressure 80 mm[Hg] HENRIQUE DIALLO [facility] 11-01-2022 11:22-0500 Heart rate 68 /min HENRIQUE DIALLO [facility] 11-01-2022 11:22-0500 Respiratory rate 16 /min HENRIQUE DIALLO [facility] 11-01-2022 11:22-0500 Systolic blood pressure 137 mm[Hg] HENRIQUE DIALLO [facility] 08-18-2022 10:22-0500 Body temperature 96.21 [degF] ANATOLY Bartlett MD Work Phone: [facility] 08-18-2022 10:22-0500 Body weight 105.23 kg ANATOLY Bartlett MD Work Phone: [facility] 08-18-2022 10:22-0500 Diastolic blood pressure 55 mm[Hg] ANATOLY Bartlett MD Work Phone: [facility] 08-18-2022 10:22-0500 Heart rate 78 /min ANATOLY Bartlett MD Work Phone: [facility] 08-18-2022 10:22-0500 Respiratory rate 18 /min ANATOLY Bartlett MD Work Phone: [facility] 08-18-2022 10:22-0500 SaO2% (BldA) [Mass fraction] 98 % ANATOLY Bartlett MD Work Phone: [facility] 08-18-2022 10:22-0500 Systolic blood pressure 125 mm[Hg] ANATOLY Bartlett MD Work Phone: [facility] 02-17-2022 09:51-0400 Body temperature 96.1 [degF] ANATOLY Bartlett MD Work Phone: [facility] 02-17-2022 09:51-0400 Body weight 100.7 kg ANATOLY Bartlett MD Work Phone: [facility] 02-17-2022 09:51-0400 Diastolic blood pressure 75 mm[Hg] ANATOLY Bartlett MD Work Phone: [facility] 02-17-2022 09:51-0400 Heart rate 66 /min ANATOLY Bartlett MD Work Phone: [facility] 02-17-2022 09:51-0400 Respiratory rate 16 /min ANATOLY Bartlett MD Work Phone: [facility] 02-17-2022 09:51-0400 SaO2% (BldA) [Mass fraction] 97 % ANATOLY Bartlett MD Work Phone: [facility] 02-17-2022 09:51-0400 Systolic blood pressure 120 mm[Hg] ANATOLY Bartlett MD Work Phone: [facility] Encounters Encounter Date Encounter Type Care Provider Facility Start: 06-03-2025 End: 06-03-2025 ambulatory Nico Ball DO Work Phone: [facility] Work Phone: Start: 06-03-2025 End: 06-03-2025 Patient encounter procedure Nico Ball DO -[facility] Work Phone: Start: 06-02-2025 Non-patient / Non-visit Nico scott DO -[facility] Work Phone: Start: 05-29-2025 Non-patient / Non-visit Mabel Holt [employer] -[facility] Work Phone: Start: 05-28-2025 End: 05-28-2025 ambulatory Nico Ball DO Work Phone: [facility] Work Phone: Start: 05-28-2025 End: 05-28-2025 Patient encounter procedure Nico Ball DO -[facility] Work Phone: Start: 04-16-2025 End: 04-16-2025 ambulatory Nico Ball DO Work Phone: [facility] Work Phone: Start: 04-16-2025 End: 04-16-2025 Patient encounter procedure Nico Ball DO -[facility] Work Phone: Start: 03-24-2025 End: 03-24-2025 ambulatory Nico Ball DO Work Phone: [facility] Work Phone: Start: 03-24-2025 End: 03-24-2025 Patient encounter procedure Nico Ball DO -[facility] Work Phone: Start: 03-18-2025 Non-patient / Non-visit Nico scott DO -[facility] Work Phone: Start: 12-10-2024 End: 12-10-2024 ambulatory NICO Ortega NARBERTH Facility:[facility] Start: 12-10-2024 End: 12-10-2024 Office outpatient visit 15 minutes Yuan Bartlett MD Work Phone: Radiation Oncology Comment on above: Cancer of prostate w /med recur risk (T2b-c or Langley 7 or PSA 10-20) (HCC) (Primary Dx) Start: 11-21-2024 End: 11-21-2024 ambulatory [facility] Work Phone: Start: 11-21-2024 End: 11-21-2024 Patient encounter procedure [facility] Work Phone: Start: 08-09-2024 End: 08-09-2024 ambulatory NICO LINO Facility:[facility] Start: 08-09-2024 End: 08-09-2024 Patient encounter procedure Yuan Bartlett MD Work Phone: Radiation Oncology Comment on above: Cancer of prostate w /med recur risk (T2b-c or Asaf 7 or PSA 10-20) (HCC) (Primary Dx) Start: 07-30-2024 End: 07-30-2024 ambulatory [facility] Work Phone: Start: 07-30-2024 End: 07-30-2024 Patient encounter procedure [facility] Work Phone: Start: 07-27-2024 Patient encounter procedure [facility] Start: 07-24-2024 Non-patient / Non-visit [facility] Work Phone: Start: 07-03-2024 End: 07-03-2024 Refill Conchita Kenny DO Work Phone: [facility] Comment on above: Age-related nuclear cataract of both eyes Start: 07-02-2024 End: 07-02-2024 Refcassandra Kenny DO Work Phone: [facility] Comment on above: Age-related nuclear cataract of both eyes (Primary Dx) Start: 05-14-2024 End: 05-14-2024 Bamboo flowsheet Conchita Kenny DO Work Phone: [facility] Start: 05-14-2024 End: 05-14-2024 Bamboo flowsheet Conchita Kenny DO Work Phone: [facility] Start: 05-14-2024 End: 05-14-2024 ambulatory CONCHITA KENNY Not Available Start: 03-27-2024 End: 03-27-2024 ambulatory [facility] Work Phone: Start: 03-27-2024 End: 03-27-2024 Patient encounter procedure [facility] Work Phone: Start: 03-26-2024 Non-patient / Non-visit [facility] Work Phone: Start: 03-05-2024 End: 03-05-2024 ambulatory HENRIQUE LANDRUM Facility:[facility] Start: 03-05-2024 End: 03-05-2024 Patient encounter procedure HENRIQUE LANDRUM [facility] Start: 02-15-2024 End: 02-15-2024 Patient encounter procedure Yuan Bartlett MD Work Phone: Radiation Oncology Comment on above: Cancer of prostate w /med recur risk (T2b-c or Asaf 7 or PSA 10-20) (HCC) (Primary Dx) Start: 02-15-2024 End: 02-15-2024 ambulatory NICO LINO Facility:[facility] Start: 02-14-2024 Non-patient / Non-visit [facility] Work Phone: Start: 08-17-2023 End: 08-17-2023 Patient encounter procedure Yuan Bartlett MD Work Phone: Radiation Oncology Comment on above: Malignant neoplasm o f prostate (HCC) (Primary Dx) Start: 07-26-2023 End: 07-26-2023 ambulatory Nico Lino Other [facility] Other Start: 07-26-2023 Patient encounter procedure Nico Lino [facility] Start: 07-17-2023 End: 07-17-2023 ambulatory Nico Lino Other [facility] Other Start: 07-17-2023 Telephone encounter Nico MERAZ G [facility] Start: 04-04-2023 End: 04-04-2023 ambulatory Nico Lino Other [facility] Other Start: 04-04-2023 Telephone encounter Nico MERAZ [facility] Start: 01-05-2023 End: 01-05-[address] NICO LINO Facility:[facility] Start: 11-29-2022 End: 11-30-[address] NICO LINO [facility] Other Start: 11-29-2022 Office outpatient vi sit 25 minutes Nico Lino [facility] Start: 11-01-2022 End: 11-01-2022 Patient encounter procedure HENRIQUE LANDRUM [facility] Start: 08-18-2022 End: 08-18-2022 ambulatory Irlanda Castro APRN.DIPLOMATIC INTERPRETER Work Phone: Hematology/Oncology Comment on above: Prostate cancer (HCC ) Start: 08-18-2022 End: 08-18-2022 Patient encounter procedure Irlanda Castro APRN.DIPLOMATIC INTERPRETER Work Phone: [facility] Comment on above: Prostate cancer (HCC ) (Primary Dx) Start: 07-29-2022 End: 07-30-[address] NICO LINO Facility:[facility] Start: 07-25-2022 Adult health examination Nico Lino Other [facility] Other Start: 02-17-2022 End: 02-17-2022 Patient encounter procedure G Toni Bartlett MD Work Phone: Radiation Oncology Comment on above: Prostate cancer (HCC ) (Primary Dx) Start: 02-16-2022 End: 02-17-[address] NICO LINO Facility:[facility] Start: 01-16-[address] VICKI BARTLETT Fac ility:[facility] Start: 08-05-2021 End: 08-05-2021 Subsequent hospital visit by physician Pet [facility] Scan [facility] Work Phone: Radiology Pet CT Start: 07-19-2021 End: 07-19-2021 Pre-procedure evaluation check Nico Lino Other [facility] Other Start: 10-24-2014 End: 10-25-2014 Patient encounter DEFAULT PHYSICIAN Facility:[facility] Procedures Date Procedure Procedure Detail Performing [...] #### P SAD, FOL, FERR, FETIBC #### [facility] [address] [place] [address] Dr. Radha Brown Start: 06-02-2022 Adult depression screening assessment ANATOLY Bartlett MD Work Phone: Start: 02-16-2022 End: 02-16-2022 PSA screening [facility] Provider Comment on above: Performed By: #### P SAD #### [facility] [address] [place] [address] Dr. Radha Brown Start: 07-07-2021 Brachytherapy implan [...] HENRIQUE LANDRUM Appendectomy HENRIQUE LANDRUM Depression screening Benjaretha Lino Other Screening for malign ant neoplasm of prostate Nico Lino Other Plan of Treatment Date Care Activity Detail Author Start: 01-05-2033 Urine microalbumin profile DTaP,Tdap,Td Vaccine (2 - Td or Tdap) [facility] Start: 06-17-2025 End: 06-17-2025 Patient encounter procedure 06/17/2025 11:30 AM EDT Office Visit Radiation Oncology [address] [place] [address] [place] [address] Yuan Bartlett MD [address] [place] [address] [place] [address] Labs to be done at [facility] prior Radiation Oncology Comment on above: Labs to be done at [facility] prior Start: 06-12-2025 End: 09-11-2025 Testosterone [Mass/volume] in Serum or Plasma TESTOSTERONE, TOTAL BY IMMUNOASSAY (ADULT MALES, OR INDIVIDUALS ON TESTOSTERONE THERAPY) Lab Routine Cancer of prostate w/med recur risk (T2b-c or Asaf 7 or PSA 10-20) (HCC) Expected: 06/12/2025, Expires: 09/11/2025 [facility] Comment on above: Expected: 06/12/2025 , Expires: 09/11/2025 Start: 04-11-2025 End: 07-11-2025 Prostate specific Ag [Mass/volume] in Serum or Plasma PROSTATE-SPECIFIC ANTIGEN DIAGNOSTIC Lab Routine Cancer of prostate w/med recur risk (T2b-c or Langley 7 or PSA 10-20) ([facility]) Expected: 04/11/2025 (Approximate), Expires: 07/11/2025 [facility] Work Phone: Comment on above: Expected: 04/11/2025 (Approximate), Expires: 07/11/2025 Start: 12-10-2024 End: 12-10-2024 Patient encounter procedure 12/10/2024 2:45 PM EDT Office Visit Radiation Oncology [address] [place] [address] [place] [address] Yuan Bartlett MD [address] [place] [address] [place] [address] 4 month follow up Radiation Oncology Comment on above: 4 month follow up Start: 12-07-2024 End: 03-08-2025 Prostate specific Ag [Mass/volume] in Serum or Plasma PROSTATE-SPECIFIC ANTIGEN DIAGNOSTIC Lab Routine Cancer of prostate w/med recur risk (T2b-c or Langley 7 or PSA 10-20) (HCC) Expected: 12/07/2024, Expires: 03/08/2025 [facility] Work Phone: Comment on above: Expected: 12/07/2024 , Expires: 03/08/2025 Start: 12-07-2024 End: 03-08-2025 Testosterone [Mass/volume] in Serum or Plasma TESTOSTERONE, TOTAL BY IMMUNOASSAY (ADULT MALES, OR INDIVIDUALS ON TESTOSTERONE THERAPY) Lab Routine Cancer of prostate w/med recur risk (T2b-c or Langley 7 or PSA 10-20) (HCC) Expected: 12/07/2024, Expires: 03/08/2025 [facility] Comment on above: Expected: 12/07/2024 , Expires: 03/08/2025 Start: 09-18-2024 Advance Directive Discussion Advance Directive Discussion [facility] Start: 08-17-2024 End: 11-16-2024 Prostate specific Ag [Mass/volume] in Serum or Plasma PROSTATE-SPECIFIC ANTIGEN DIAGNOSTIC Lab Routine Cancer of prostate w/med recur risk (T2b-c or Langley 7 or PSA 10-20) (HCC) Expected: 08/17/2024, Expires: 11/16/2024 [facility] Work Phone: Comment on above: Expected: 08/17/2024 , Expires: 11/16/2024 Start: 08-08-2024 End: 08-08-2024 Patient encounter procedure 08/08/2024 9:15 AM EST Office Visit Radiation Oncology [address] [place] [address] Yuan Bartlett MD [address] [place] [address] [place] [address] 6 month rv Radiation Oncology Comment on above: 6 month rv Start: 07-31-2024 Diabetes Screening Diabetes Screenin yuan [facility] Start: 06-24-2024 End: 06-24-2024 Patient encounter procedure 06/24/2024 9:05 AM EDT Procedure Visit [facility] Conchita Kenny, DO [address] [place] [address] [facility] Start: 06-10-2024 End: 06-10-2024 Patient encounter procedure 06/10/2024 10:25 AM EDT Procedure Visit [facility] Conchita Kenny, DO [address] [place] [address] [facility] Start: 05-19-2024 Covid-19 Vaccine ( season) Covid-19 Vaccine ( season) [facility] Start: 05-19-2024 Influenza vaccination Influenza Vacc ine (#1) [facility] Start: 05-14-2024 End: 05-14-2024 Patient encounter procedure 05/14/2024 1:45 PM EDT Office Visit [facility] [address] [place] [id number] Conchita Kenny DO [address] [place] [address] Arrived [facility] Comment on above: Arrived Start: 02-15-2024 End: 05-16-2024 Prostate specific Ag [Mass/volume] in Serum or Plasma PSA/PROSTSPECAG DIAG Lab Routine Malignant neoplasm of prostate (HCC) Expected: 02/15/2024 (Approximate), Expires: 05/16/2024 [facility] Work Phone: Comment on above: Expected: 02/15/2024 (Approximate), Expires: 05/16/2024 Start: 10-14-2023 Covid-19 Vaccine ( season) Covid-19 Vaccine () [facility] Start: 09-18-2023 Advance Directive Discussion Advance Directive Discussion [facility] Start: 09-18-2023 Behavioral Health Screening Behavioral Health Screening [facility] Start: 08-18-2023 End: 10-18-2023 Prostate specific Ag [Mass/volume] in Serum or Plasma PSA/PROSTSPECAG DIAG Lab Routine Prostate cancer (HCC) Expected: 08/18/2023, Expires: 10/18/2023 [facility] Work Phone: Comment on above: Expected: 08/18/2023 , Expires: 10/18/2023 Start: 02-17-2023 Adult depression screening assessment DEPRESSION SCREENING [facility] Start: 09-18-2022 Advance Directive Discussion Advance Directive Discussion [facility] Start: 09-18-2022 Depression Assessment Depression Ass essment [facility] Start: 08-19-2022 End: 10-19-2022 Prostate specific Ag [Mass/volume] in Serum or Plasma PSA/PROSTSPECAG DIAG Lab Routine Prostate cancer (HCC) Expected: 08/19/2022 (Approximate), Expires: 10/19/2022 [facility] Work Phone: Comment on above: Expected: 08/19/2022 (Approximate), Expires: 10/19/2022 Start: 09-18-2021 ADVANCE DIRECTIVE DISCUSSION ADVANCE DIRECTIVE DISCUSSION [facility] Start: 09-18-2021 DEPRESSION ASSESSMENT DEPRESSION ASS ESSMENT [facility] Start: 05-03-2021 COVID-19 VACCINE (3 - Booster for Moderna series) COVID-19 VACCINE (3 - Booster for Moderna series) [facility] Start: 2020 RSV Vaccine (1 - 1-d ose 75+ series) RSV Vaccine (1 - 1-dose 75+ series) [facility] Start: 10-04-2019 Pneumococcal Vaccine : 50+ (2 of 2 - PCV) Pneumococcal Vaccine: 50+ (2 of 2 - PCV) [facility] Start: 10-04-2019 Pneumococcal Vaccine : 65+ (2 - PCV) Pneumococcal Vaccine: 65+ (2 - PCV) [facility] Start: 10-04-2019 Pneumococcal Vaccine : 65+ (2 of 2 - PCV) Pneumococcal Vaccine: 65+ (2 of 2 - PCV) [facility] Start: 10-04-2019 Pneumococcal Vaccine : 65+ Years (2 of 2 - PCV) Pneumococcal Vaccine: 65+ Years (2 of 2 - PCV) [facility] Start: 10-04-2019 PNEUMOCOCCAL: 65+ (2 - PCV) PNEUMOCOCCAL: 65+ (2 - PCV) [facility] Start: 2005 RSV Vaccine (1 - 1-d ose 60+ series) RSV Vaccine (1 - 1-dose 60+ series) [facility] Start: 1995 SHINGRIX VACCINE (1 of 2) SHINGRIX VACCINE (1 of 2) [facility] Start: 1990 DIABETES SCREEN DIABETES SCREEN [facility] Start: 1964 SHINGRIX VACCINE (1 of 2) SHINGRIX VACCINE (1 of 2) [facility] Start: 1964 Urine microalbumin profile DTAP,TDAP,TD (1 - Tdap) [facility] Start: 1963 Anxiety Screening Anxiety Screening [facility] Start: 1963 Depression Screening Depression Scre ening [facility] Start: 1963 HEPATITIS C SCREENING HEPATITIS C [facility] Start: 1963 Hepatitis C screening Hepatitis C [facility] Comprehensive metabo lic 1999 panel - Serum or Plasma [facility] Comprehensive metabo lic 1999 panel - Serum or Plasma [facility] Comprehensive metabo lic 1999 panel - Serum or Plasma [facility] Microalbumin [Mass/volume] in Urine [facility] XR Hip [facility] right 2 [facility] Lumbar spine 2 or 3 Views [facility] Immunizations Immunization Date Immunization Notes Care Provider Mak loya 07-30-2024 influenza, high dose seasonal, preservative-free [facility] 06-14-2023 COVID-19 Vaccine Pfi zer - Documentation Purposes Only Nico Lino Other [facility] 06-14-2023 Flu Shot - Documentation Purposes Only Nico Lino Other [facility] [employer] Other 06-14-2023 influenza virus vaccine, unspecified formulation Conchita Kenny DO Work Phone: [facility] 01-05-2023 tetanus toxoid, redu doni diphtheria toxoid, and acellular pertussis vaccine, adsorbed Nico Lino Other [facility] Other 07-25-2022 influenza (aIIV4) vaccine, age 65+ yr, quadrivalent, PF (FLUAD QUAD) ANATOLY Bartlett MD Work Phone: [facility] 07-25-2022 influenza virus vaccine, split virus (incl. purified surface antigen) Nico Lino Other [facility] Other 07-25-2022 influenza virus vaccine, unspecified formulation HENRIQUE LANDRUM [facility] 07-23-2022 SARS-CoV-2 (COVID-19 ) [id number] HENRIQUE LANDRUM [facility] 05-05-2022 SARS-CoV-2 mRNA ([id number] se) vaccine HENRIQUE LANDRUM [facility] 06-10-2021 influenza nasal, unspecified formulation ANATOLY Bartlett MD Work Phone: [facility] 06-10-2021 influenza virus vaccine, split virus (incl. purified surface antigen) Nico Lino Other [facility] Other 06-10-2021 influenza virus vaccine, unspecified formulation HENRIQUE LANDRUM [facility] 06-10-2021 Seasonal trivalent influenza vaccine, adjuvanted, preservative free ANATOLY Bartlett MD Work Phone: [facility] 12-01-2020 COVID-19 vaccine, fu ll dose (MODERNA) ANATOLY Bartlett MD Work Phone: [facility] 11-05-2020 COVID-19 vaccine, fu ll dose (MODERNA) ANATOLY Bartlett MD Work Phone: [facility] 07-09-2020 influenza virus vaccine, split virus (incl. purified surface antigen) Nico Lino Other [facility] Other 07-09-2020 influenza virus vaccine, unspecified formulation [facility] 06-04-2019 influenza nasal, unspecified formulation ANATOLY Bartlett MD Work Phone: [facility] 06-04-2019 influenza virus vaccine, unspecified formulation HENRIQUE LANDRUM [facility] 06-04-2019 Seasonal trivalent influenza vaccine, adjuvanted, preservative free ANATOLY Bartlett MD Work Phone: [facility] 10-04-2018 pneumococcal Conjuga te, unspecified formulation; Translations: [Need for prophylactic vaccination against Streptococcus pneumoniae (pneumococcus)] Nico Holland Other [facility] [employer] Other 10-04-2018 pneumococcal polysaccharide vaccine, 23 valent ANATOLY Bartlett MD Work Phone: [facility] 06-24-2015 influenza virus vaccine, split virus (incl. purified surface antigen) Nico Lino Other [facility] [facility] Other 06-24-2015 influenza virus vaccine, unspecified formulation [facility] 06-24-2015 pneumococcal conjuga te vaccine, 13 valent Nico Lino Other [facility] Payers Date Payer Category Payer Medicaid [employer] MEDICARE A DVANTAGE [id number] 2022 Medicare (Managed Care) [employer] [place] [id number] 2020 Unknown 2020 Unknown MMO MMO TRADITIO NAL [id number] 2020-Present [phone] [address] [place] [address] Indemnity [id number] 2011 Medicare MEDICARE MEDICAR E A AND B [id number] 2011-Present [phone] [address] [address] [place] [address] Medicare [id number] 2011 Medicare [id number] 1959 Medicare [id number] 1959 Medicare [id number] 1959 Self-pay [id number] 1959 Unknown [id number] 1945 Unknown [id number] [id number] 1945 Unknown [id number] 593 1945 Unknown [id number] 593 1945 Unknown [id number] 593 1945 Unknown [id number] 593 1945 Unknown [id number] 593 1945 Unknown [id number] 1945 Unknown [id number] Social History Date Type Detail Facility Start: 03-03-2021 End: 11-23-2023 Tobacco smoking status NHIS Ex-smoker [facility] Start: 03-03-1957 End: 03-03-1961 History of tobacco use Current smoker [facility] Start: 03-03-2021 End: 08-17-2023 Cigarettes smoked current (pack per day) - Reported 0.5 [facility] Start: 03-03-2021 End: 08-09-2024 Tobacco use and exposure Smokeless tobacco non-user [facility] Start: 02-17-2022 End: 08-09-2024 Alcohol intake Current drinker of alcohol (finding) [facility] Start: 03-03-2021 History SDOH Alcohol Comment Socially [facility] Start: 1945 Sex Assigned At Not on file [facility] Start: 07-06-2021 End: 08-18-2022 Exposure to SARS-CoV-2 (event) Not sure [facility] Start: [birth year]-03-1957 End: 03-03-1961 History of tobacco use Cigarette Smoker [facility] Start: 08-18-2022 End: 08-17-2023 Sex Assigned At Male [facility] Adult Depression Screening Assessment 0 [facility] Start: 1945 Sex Assigned At Male F [facility] Start: 07-30-2024 End: 11-21-2024 Sex Male (finding) [facility] Medical Equipment Procedure Code Equipment Code Equipment Origin al Text Equipment Identifier Dates PROSTATIC BRACHYTHERAPY Yuan Bartlett MD 07/07/21 Unknown Other FDA Start: 07-07-2021 PROSTATIC BRACHYTHERAPY Yuan Bartlett MD 07/07/21 Unknown Other FDA Start: 07-07-2021 Functional Status Date Assessment Result Facility 11-01-2022 Functional Status N/A [facility] Clinical Notes 02-17-2022 to 03-24-2025 Note Date & Type Note Facility 03-24-2025 Evaluation note Diagnosis Onset Date Resolution ASHD (arteriosclerotic heart disease) acute March 24, 2025 10:41am Chronic kidney disease acute ly 2024 10:41am Chronic venous insufficiency acute [...] 16, 2025 1:26pm Chronic kidney disease acute ly 2024 1:26pm Chronic venous insufficiency acute April 16, 2025 1:26pm Diabetes mellitus with hyperglycemia acute April 16, 2025 1:26pm Elevated cholesterol acute April 16, 2025 1:26pm Pernicious anemia acute April 162024 1:26pm Primary hypertension acute April 16, 2025 1:26pm Prostate cancer acute March 1:26pm Weight loss acute April 16 1:26pm [facility] Work Phone: 1(363) 586-172907-07-2025 Evaluation note* Diagnosis Onset Date Resolution Status [...] 16, 2025 1:26pm Chronic kidney disease acute ly 2024 1:26pm Chronic venous insufficiency acute [...] 28, 2025 1:41pm Chronic kidney disease acute Se ptember 2024 1:41pm Chronic venous insufficiency acute May 28, 2025 1:41pm Diabetes mellitus with hyperglycemia acute May 28, 2025 1:41pm Elevated cholesterol acute May 1:41pm Pernicious anemia acute 2024 1:41pm Primary hypertension acute May 1:41pm Prostate cancer acute May 28, 2025 1:41pm Weight loss acute May 1:41pm [facility] Work Phone: 1(441) 913-476607-07-2025 Evaluation note* Diagnosis Onset Date Resolution Status [...] 28, 2025 1:41pm Chronic kidney disease acute Se ptember 2024 1:41pm Chronic venous insufficiency acute May 28, 2025 1:41pm Diabetes mellitus with hyperglycemia acute May 28, 2025 1:41pm Elevated cholesterol acute May 1:41pm Pernicious anemia acute Septemb er 2024 1:41pm Primary hypertension acute May 1:41pm Prostate cancer acute May 28, 2025 1:41pm Weight loss acute May 1:41pm ASHD (arteriosclerotic heart disease) acute June 03, 2025 1:25pm Chronic kidney disease acute Se ptember 2024 1:25pm Diabetes mellitus with hyperglycemia acute June 03, 2025 1:25pm Elevated cholesterol acute May 1:25pm Pernicious anemia acute Septemb er 2024 1:25pm Primary hypertension acute May 1:25pm Prostate cancer acute June 03, 2025 1:25pm Weight loss acute May 1:25pm Laceration of upper arm without complication noneactive May 192024 1:25pm [facility] Work Phone: 1(889) 251-427804-01-2025 Evaluation note* Diagnosis Cancer of prostate w/med recur risk (T2b-c or Asaf 7 or PSA 10-20) (HCC)- Primary Malignant neoplasm of prostate documented in this encounter [facility]03-25-2025 History of Present illness Narrative* [...] ASSESSMENT/PLAN: Prostate adenocarcinoma, 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 Clinically doing well. PSA with minimal manager exchange the last 3 to 4 months. Has risen over the last12 months still likely related to testosterone recovery after prior ADT. Recommend continued close observation. If continues to climb consider PSMA PET. Signed by: Yuan Bartlett MD cc: Nico Lino ([facility]) [address] [place] [address] Portions of the above note extracted and edited from previous visit as well as active information included in the EMR. * Katiana Acharya RN - 12/10/2024 2:38 PM EDT AUA 10 Katiana Acharya RN documented in this encounterOhio[facility]03-[facility]-2025 NoteHNO ID: [id number] Author: Yuan BARTLETT MD Service: ? Author Type: Physician Type: Progress Notes Filed: 12/17/2024 10:57 Note Text: ) C. 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 Clinically doing well. PSA with minimal manager exchange the last 3 to 4 months. Has risen over the last 12 months still likely related to testosterone recovery after prior ADT. Recommend continued close observation. If continues to climb consider PSMA PET. Signed by: Yuan Bartlett MD cc: Nico Lino ([facility]) [address] [place] [address] Portions of the above note extracted and edited from previous visit as well as active information included in the EMR.[facility]03-25-2025 Note HNO ID: [id number] Author: KATIANA ACHARYA RN Service: ? Author Type: Registered Nurse Type: Progress Notes Filed: 12/17/2024 10:57 Note Text: AUA [address] [facility] note* Diagnosis Cancer of prostate w/med recur risk (T2b-c or Langley 7 or PSA 10-20) (HCC)- Primary Malignant neoplasm of prostate documented in this encounter [facility]11-22-2024 NoteHNO ID: [id number] Author: Yuan BARTLETT MD Service: ? Author [...] ASSESSMENT/PLAN: Prostate adenocarcinoma, initial PSA 11.5, biopsy Langley score 4 + 3 = 7 (grade [...] by: Yuan Bartlett MD cc: Nico Lino ([facility]) [address] [place] [address] Dr. Storey Portions of the above note extracted and edited from previous visit as well as active information included in the EMR.[facility]11-22-2024 History of Present illness Narrative* Yuan Bartlett MD - 08/09/2024 9:19 AM EST Radiation Oncology - Follow Up Note PATIENT NAME: Segun Johnson PATIENT DIAGNOSIS: Prostate adenocarcinoma, initial PSA 11.5, biopsy Langley score 4 + 3 = 7 (grade [...] Yuan Bartlett MD cc: Nico Lino (Mikhail) [facility] [place] [address] Dr. Storey Portions of the above note extracted and edited from previous visit as well as active information included in the EMR. documented in this encounterOhio[facility]11-22-2024 Nurse Note* Jillian Waddell LPN - 08/09/2024 9:15 AM EST AUA= 8 [facility]11-22-2024 Nurse Note* Jillian Waddell LPN - 08/09/2024 9:15 AM EST AUA= 8 documented in this encounterOhio[facility]08-27-2024 History of Present illness Narrative* [...] History: Diagnosis Date ASHD (arteriosclerotic heart disease) ([facility]) Cataract Diabetes mellitus with hyperglycemia ([facility]) Dry eyes Elevated cholesterol ([facility]) CATHY (generalized anxiety disorder) ([facility] Hypertension ([facility]) Pernicious anemia Prostate cancer ([facility]) 2021 s/p Hormone tx, CTx, external beam [...] @ 2:06 PM Additional Tests Keratometry K1 [place] K2 Dallas Right 45.5 151 46.5 61 Left 45.75 [...] Normal Normal Refraction Wearing Rx Sphere Cylinder [place] Add Right -4.75 +0.00 180 +2.50 Left -5.75 -0.50 055 +2.50 Manifest Refraction Sphere Cylinder [place] Right -4.25 -1.25 110 Left -6.00 -1.00 055 Final Rx Sphere Cylinder [place] Dist [place] Right -4.25 -0.75 110 20/40 [...] different lens options were explained including the [id number] fees for any upgrades. Intraocular lens (IOL) [...] and OD - 06/24. [id number] Evaluation note* Diagnosis Cancer of prostate w/med recur risk (T2b-c or Langley 7 or PSA 10-20) (HCC)- Primary Malignant neoplasm of prostate documented in this encounter [facility]05-30-2024 History of Present illness Narrative* Yuan Bartlett MD - 02/15/2024 10:00 AM EDT Radiation Oncology - Follow Up Note PATIENT NAME: Segun Johnson PATIENT DIAGNOSIS: Prostate adenocarcinoma, initial PSA 11.5, biopsy Langley score 4 + 3 = 7 (grade [...] ASSESSMENT/PLAN: Prostate adenocarcinoma, initial PSA 11.5, biopsy Langley score 4 + 3 = 7 (grade [...] by: Yuan Bartlett MD cc: Nico Lino ([facility]) [address] [place] [address] Dr. Storey Portions of the above note extracted and edited from previous visit as well as active information included in the EMR. documented in this encounterOhiohealth [facility]in [facility]05-30-2024 NoteHNO ID: [id number] Author: Yuan BARTLETT MD Service: ? Author [...] by: Yuan Bartlett MD cc: Nico Lino ([facility]) [address] [place] [address] Dr. Storey Portions of the above note extracted and edited from previous visit as well as active information included in the EMR.[facility]05-30-2024 Nurse Note* Venus Vasques MA - 02/15/2024 9:47 AM EDT AUA=9 [facility]04-01-2024 Nurse Note* Venus Vasques MA - 02/15/2024 9:47 AM EDT AUA=9 documented in this encounterOhiohealth [facility]11-30-2023 History of Present illness Narrative* Yuan Bartlett MD - 08/17/2023 10:15 AM EST Radiation Oncology - Follow Up Note PATIENT NAME: Segun Johnson PATIENT DIAGNOSIS: Prostate adenocarcinoma, initial PSA 11.5, biopsy Langley score 4 + 3 = 7 (grade [...] MD cc: Nico Lino (M[facility]ail) [id number] Storey Portions of the above note extracted and edited from previous visit as well as active information included in the EMR. documented in this encounterOhiohealth [facility]in [facility]11-30-2023 Nurse Note* Katiana Acharya RN - 08/17/2023 10:07 AM EST AUA 7 Katiana Acharya, MARGOT documented in this encounterOhiohealth [facility]in [facility]11-08-2023 Evaluation note* Encounter Date Diagnosis [...] CD-10 - D51.0) Continue supplement, recheck CBC [facility] Other 07-18-2023 Evaluation note* Encounter Date Diagnosis Assessment Notes Treatment Notes Treatment Clinical Notes Mar, Type 2 diabetes mellitus with hyperglycemia, without long-term current use of insulin (ICD-10 - E11.65) [facility] Other 03-14-2023 Evaluation note* Encounter Date Diagnosis [...] Pernicious anemia (ICD-10 - D51.0) B12 monthly [facility] Other 02-14-2023 Hospital Discharge instructions Patient Education [...] urethra. Follow these instructions at home: Take mnoa-aws-fgryszq and prescription medicines only as told by [...] 09/04/2006 Document Revised: 07/30/2019 Document Reviewed: 10/09/2017 [employer] Patient Education 2020 [employer]. Follow Up Care 05/03/2022 11:28:51 With:HENRIQUE LANDRUM PA-C, URL Address: [address] [place] [address] When:Within 18 Month(s) Comments:PSA [facility] 12-01-2022 History of Present illness Narrative* Irlanda [...] cancer. Irlanda Castro APRN.KEKE documented in this encounterOhiohealth [facility]in [facility]12-01-2022 History of Present illness Narrative* [...] Bartlett MD cc: Nico Lino (Mikhail) [address] [place] [address] Dr. Storey Portions of the above note extracted and edited from previous visit as well as active information included in the EMR. documented in this encounterOhiohealth [facility]in [facility]12-01-2022 Nurse Note* Katiana Acharya RN - 08/18/2022 10:30 AM EST AUA 14 Katiana Acharya RN documented in this encounterOhiohealth [facility]in [facility]06-02-2022 History of Present illness Narrative* [...] Yuan Bartlett MD cc: Nico Lino (Mikhail) [address] [place] [address] Dr. Storey Portions of the above note extracted and edited from previous visit as well as active information included in the EMR. documented in this encounterOhiohealth Hardin [facility] Hospital06-02-2022 Nurse Note* Katiana Acharya RN - 02/17/2022 9:54 AM EDT AUA 10 Katiana Acharya RN [facility] Future Appointments Appointment Date:03/05/2024 11:00:00 AM Scheduled Provider:HENRIQUE LANDRUM PA-C Location:[facility] Appointment Type:URO Office Visit Diagnostic Tests Pending * PSA Total 11/01/22 [facility] evaluation note* Diagnosis Prostate cancer (HCC)- Primary Malignant neoplasm of prostate documented in this encounter [facility] note* Diagnosis Prostate cancer (HCC) Malignant neoplasm of prostate documented in this encounter [facility] note* Diagnosis Prostate cancer (HCC)- Primary Malignant neoplasm of prostate documented in this encounter [facility] noteNo [employer] Other Evaluation note* Diagnosis Malignant neoplasm of prostate (HCC)- Primary Malignant neoplasm of prostate documented in this encounter [facility] note* Diagnosis Onset Date Resolution Status ASHD (arteriosclerotic heart disease) acute Chronic venous insufficiency acute Diabetes mellitus with hyperglycemia acute Elevated cholesterol acute Primary hypertension acute Prostate cancer acute [facility] Work Phone: Evaluation note* Diagnosis Age-related nuclear cataract of both eyes- Primary documented in this encounter [facility]* Diagnosis Age-related nuclear cataract of both eyes documented in this encounter [facility]* Diagnosis Onset Date Resolution Status Admit Date ASHD (arteriosclerotic heart disease) acute July 30 10:57am Chronic venous insufficiency acute July 30, 2024 10:57am Diabetes mellitus with hyperglycemia acute July 30 10:57am Elevated cholesterol acute 2023 10:57am Medicare annual wellness vis it, subsequent acute July 30 10:57am Primary hypertension acute 2023 10:57am Prostate cancer acute July 30, 2024 10:57am [facility] Work Phone: Evaluation note* Diagnosis Age-related nuclear cataract of both eyes- Primary [facility]* Diagnosis Onset Date Resolution Status Admit Date Low back pain radiating to r ight leg acute November 21, 2024 9:54am Right hip pain acute November 21, 2024 9:54am [facility] Work Phone: Evaluation note* Diagnosis Onset [...] 10:41am Weight loss acute March 24 10:41am [facility] Work Phone: History general Narrative - [...] (TRUS) W ITH BIOPSY 2020 Surgical History [facility] PTCA LAD/OM 2003 Hospitalization History SEE SURGICAL HX [facility] Other Hospital course Narrative No data available for this section [facility] Hospital Discharge instructions No data available for this section [facility] progress note No data available for this section [facility] reason for referral (narrative)No reason for referral information availableAshtabula [facility] Work Phone: Summary Purpose Family History [...] Admit Date ASHD (arteriosclerotic heart disease) Ju 2024 10:41am Chronic kidney disease March 24, 2025 10 :41am Chronic venous insufficiency March 24, 2 025 10:41am Diabetes mellitus with hyperglycemia Raphael 2024 10:41am Elevated cholesterol March 24, 2025 [...] 24, 025 10:41am Diabetes mellitus with hyperglycemia Mar [...] 1:41pm Weight loss May 28, 2025 1:41pm Chief Complaint Admit Date 4 mo f/u, A1C March 24, 2025 10:41 am 3 Week F/U April 16, 2025 1:26 pm 6 week check up May 28, 2025 1:41pm Amb Documentation May 29, 2025 8:28am Suture Removal June 03, 2025 1:25pm Reason for Visit Admit Date ASHD (arteriosclerotic [...] 2024 1:41pm Chronic kidney disease May 28 025 1:41pm Chronic venous insufficiency May 192024 1:41pm Diabetes mellitus with hyperglycemia May 1:41pm Elevated cholesterol May 28 1:41pm Pernicious anemia May 28, 2025 1:41pm Primary hypertension May 28 1:41pm Prostate cancer May 28, 2025 1:41pm Weight loss May 28, 2025 1:41pm ASHD (arteriosclerotic heart disease) Se ptember 2024 1:25pm Chronic kidney disease June 03 025 1:25pm Diabetes mellitus with hyperglycemia May 1:25pm Elevated cholesterol June 03 1:25pm Pernicious anemia June 03, 2025 1:25pm Primary hypertension June 03 1:25pm Prostate cancer June 03, 2025 1:25pm Weight loss June 03, 2025 1:25pm Laceration of upper arm without complica tion June 03, 2025 1:25pm Additional Source Comments (unrecognized sect ion and content) No Status Records FoundNo Status Records FoundNo Status Records FoundNo Status Records FoundNo Status Records Found INFORMATION SOURCE (unrecogn ized section and content) DATE CREATED AUTHOR 04/06/2018 [facility] DATE CREATED AUTHOR AUTHOR'S ORGANIZ ATION 01/09/2023 [facility] DATE CREATED AUTHOR AUTHOR'S ORGANIZ ATION 03/07/2024 [facility] DATE CREATED AUTHOR AUTHOR'S ORGANIZ ATION 05/16/2024 [facility] DATE CREATED AUTHOR AUTHOR'S ORGANIZ ATION 12/21/[address] [facility] Source Comments (unrecognize d section and content) In the event this informatio n is protected by the Federal Confidentiality of Alcohol and Drug Abuse Patient Records regulations: The Federal rules restrict any use of the information to criminally investigate or prosecute any alcohol or drug abuse patient.[facility] HospitalIn the event this information is protected by the Federal Confidentiality of Alcohol and Drug Abuse Patient Records regulations: The Federal rules restrict any use of the information to criminally investigate or prosecute any alcohol or drug abuse patient.[facility] HospitalIn the event this information is protected by the Federal Confidentiality of Alcohol and Drug Abuse Patient Records regulations: The Federal rules restrict any use of the information to criminally investigate or prosecute any alcohol or drug abuse patient.[facility] HospitalIn the event this information is protected by the Federal Confidentiality of Alcohol and Drug Abuse Patient Records regulations: The Federal rules restrict any use of the information to criminally investigate or prosecute any alcohol or drug abuse patient.[facility] HospitalIn the event this information is protected by the Federal Confidentiality of Alcohol and Drug Abuse Patient Records regulations: The Federal rules restrict any use of the information to criminally investigate or prosecute any alcohol or drug abuse patient.[facility] HospitalIn the event this information is protected by the Federal Confidentiality of Alcohol and Drug Abuse Patient Records regulations: The Federal rules restrict any use of the information to criminally investigate or prosecute any alcohol or drug abuse patient.[facility] HospitalIn the event this information is protected by the Federal Confidentiality of Alcohol and Drug Abuse Patient Records regulations: The Federal rules restrict any use of the information to criminally investigate or prosecute any alcohol or drug abuse patient.[facility] HospitalIn the event this information is protected by the Federal Confidentiality of Alcohol and Drug Abuse Patient Records regulations: The Federal rules restrict any use of the information to criminally investigate or prosecute any alcohol or drug abuse patient.[facility] Reason for Visit (unrecogniz ed [...] November 21, 2024 End: November 21, 2024 Color Printer Operator Relationship Specialty Start Date End Date Nico Lino, DO [address] [place] [address] PCP - General Internal Medicine 02/10/21 Joseph Vasques Jr. [address] [place] [address] Urology 02/10/21 Color Printer Operator Relationship Specialty Start Date End Date Nico Lino, DO [address] [facility] [place] [address] PCP - General Internal Medicine 02/10/21 Joseph Vasques Jr. [address] [place] [phone] Urology 02/10/21 Color Printer Operator Relationship Specialty Start Date End Date Holland Nico Ortega, DO [address] [facility] [place] [address] PCP - General Internal Medicine 02/10/21 Joseph Vasques Jr. [address] [place] [address] Urology 02/10/21 Color Printer Operator Relationship Specialty Start Date End Date Nico Lino DO [address] [facility] [place] [address] PCP - General Internal Medicine 02/10/21 Joseph Vasques Jr. [address] [place] [address] Urology 02/10/21 Color Printer Operator Relationship Specialty Start Date End Date Nico Lino DO [address] [place] [address] PCP - General Internal Medicine 02/10/21 Joseph Vasques Jr. [address] [place] [phone] Urology 02/10/21 Team Status: Active Member Role [...] March 27, 2024 End: March 27, 2024 Color Printer Operator Relationship Specialty Start Date End Date Nico Lino DO [address] [facility] [place] [address] PCP - General Internal Medicine 02/10/21 Joseph Vasques Jr. [address] [place] [address] Urology 02/10/21 Color Printer Operator Relationship Specialty Start Date End Date Nico Lino MD [address] [place] [address] PCP - General Internal Medicine 05/14/24 Color Printer Operator Relationship Specialty Start Date End Date Nico Lino MD [address] [place] [address] PCP - General Internal Medicine 05/14/24 Team Status: Active Member Role Status Dates Nico Lino DO Primary Care Provide r, Attending Provider Active Start: July 24, 2024 Team Status: Inactive Member Role Status Dates Nico Lino DO Primary Care Provide r, Attending Provider Active Start: July 30, 2024 End: July 30, 2024 Color Printer Operator Relationship Specialty Start Date End Date Nico Lino DO [address] [place] [address] PCP - General Internal Medicine 02/10/21 Joseph Vasques Jr. [address] [place] [phone] Urology 02/10/21 Color Printer Operator Relationship Specialty Start Date End Date Nico Lino MD [address] [place] [address] PCP - General Internal Medicine 05/14/24 Team [...] May 28, 2025 End: May 28, 2025 Team Status: Active Member Role Status Dates Nico Lino DO Primary Care Provider Active Start: May 29, 2025 Mabel LEXI Murdock Attending Provider Active Start: May 29, 2025 Team Status: Active Member Role Status Dates Nico Lino , Primary Care Provider Active Start: June 02, 2025 Nico Lino , Attending Provider Active Sta rt: June 02, 2025 Team Status: Inactive Member Role Status Dates Nico Lino , Primary Care Provider Active Start: June 03, 2025 End: June 03, 2025 Nico Lino , Attending Provider Active Sta rt: June 03, 2025 End: June 03, 2025 Goals (unrecognized section and content) Goals [...] BE BASED ON THE PRIMARY CLINICAL RECORDS. [facility] [employer] [facility]. provides no warranty or guarantee of the accuracy or completeness of information in this document.
[2025-06-10] MEDS: 0.9 % SODIUM CHLORIDE 1,000 ML 250 ML IV (14:15)
== END 2025-06-10 16:20 | disposition home or self-care (01) ==
PROVIDERS: Emergency Provider Emergency Medicine; PCP Internal Medicine
DX: S09.90XA Unspecified injury of head, initial encounter (principal); N17.9 Acute kidney failure, unspecified; S00.83XA Contusion of other part of head, initial encounter; W18.39XA Other fall on same level, initial encounter; R10.9 Unspecified abdominal pain; R63.4 Abnormal weight loss; Y92.238 Other place in hospital as the place of occurrence of the external cause
CPT/HCPCS: 36415; 70450; 72125; 74176; 76376; 80053; 82948; 85025; 93005; 96360; 96361; 99285

== ENCOUNTER 2025-08-18 13:53 | Outpatient (OUT) | payer MEDICARE, SELFPAY ==
--- OUTSIDE RECORDS SUMMARY | 2025-08-18 14:02 | XMS_ITS ---
Author Organization [facility] Address [address] [place], [place] [id number] Care Team Providers Care Senior Web Applications Developer Name Role Phone Nico Lino DO Primary Care Provider [phone] Joseph Vasques Jr. Unavailable [phone] Active Problems ProblemNoted DateDiagnosed DateProstate eoilch3308/17/2022 Current Treatment and Therapy Plans No current [...] Dr. Ketan Bartlett Other Providers: Irlanda Castro APRN.CNP Treatment Summary Diagnosis Cancer Type: Adenocarcinoma of [...] Resources you may be interested in: [email or web address].net [employer] Supervisor Art Therapy Support Groups- Contact [employer] for dates and times. Prepared by: Irlanda Castro APRN.CHANGE MANAGEMENT DIRECTOR Delivered on: August 18, 2022 - This [...]
--- OUTSIDE RECORDS SUMMARY | 2025-08-18 14:02 | XMS_ITS | Clinical Summary ---
Author Organization [facility] Healthcare Address [address] [place] [address] Care Team Providers Care Educational Psychologist Name Role Phone Nico Lino DO Primary Care Provider [phone] Allergies No known active allergies Medications MedicationSigDispense QuantityRefillsLast FilledStart DateEnd DateStatus atorvastatin (Lipitor) 80 MG tablet Take 80 mg by mouth at wujlokz0203/25/2024ctive folic acid (Folvite) 1 MG tablet Take 1,000 mcg by mouth DailyActive glimepiride (Amaryl) 4 MG tablet TAKE 1 TABLET BY MOUTH IN THE MORNING 30 MINUTES BEFORE BREAKFASTActive lisinopril 10 MG tablet .JDPRYKT0601/01/2024ctive metFORMIN (Glucophage) 1000 MG tablet TAKE 1 TABLET BY MOUTH 2 TIMES A DAY with breakfast and evening mealActive sertraline (Zoloft) 100 MG tablet Take 100 mg by mouth at bedtimeActive Active Problems ProblemNoted DateDiagnosed DateAge-related nuclear cataract of both eyes 05/14/2024 Social History Tobacco UseTypesPacks/DayYears UsedDateSmoking Tobacco: FormerCigarettes Tobacco Cessation:Counseling Given: Not Answered Sex and Gender InformationValueDate RecordedSex Assigned at BirthNot on file Legal XhgJhob6011/30/2022 8:24 PM EDTGender IdentityNot on fileSexual Orientation Not on file Last Filed Vital Signs Vital SignReadingTime TakenCommentsBlood Pressure--Pulse--Temperature-- Respiratory Rate--Oxygen Saturation--Inhaled Oxygen Concentration--Nawqhv84.7 kg (200 lb)04/19/2018 12:00 PM IROJlftzw559.3 cm (5' 9 )04/19/2018 12:00 PM EDTBody Mass Index29.53004/19/2018 12:00 PM EDT Plan of Treatment Not on file Insurance Care Teams Team MemberRelationshipSpecialtyStart DateEnd Date Nico Lino DO PCP - GeneralInternal Medicine05/14/24
--- OUTSIDE RECORDS SUMMARY | 2025-08-18 14:02 | XMS_ITS | Clinical Summary ---
Author Organization [facility] Address [address] [place] [id number] Care Team Providers Care Welding Engineer Name Role Phone Nico Lino DO Primary Care Provider [phone] Joseph Vasques Carlos A Jr. Unavailable [phone] Allergies No known active allergies Medications MedicationSigDispense QuantityRefillsLast FilledStart DateEnd DateStatus aspirin, enteric coated (ASPIRIN, ENTERIC COATED) 81 mg EC tablet Take by mouth.01/22/2021ctive atenolol (TENORMIN) 25 mg tablet Take 25 mg by mouth.01/14/2021ctive atorvastatin (LIPITOR) 80 mg tablet Take 80 mg by mouth.01/14/2021ctive lisinopril (ZESTRIL, PRINIVIL) 10 mg tablet Take 10 mg by mouth.01/14/2021ctive sertraline (ZOLOFT) 100 mg tablet Take 100 mg by mouth.01/14/2021ctive loperamide HCl (IMODIUM ORAL) Take by mouth.Active cyanocobalamin, vitamin B-12, (VITAMIN B12 ORAL) Take by mouth.Active folic acid 1 mg tablet once daily.11/23/2023ctive prednisoLONE acetate (PRED FORTE) 1 % ophthalmic suspension Administer 1 drop into both eyes four times a day (morning, noon, evening, bedtime) for 14 days.07/03/2024ctive glipiZIDE (GLUCOTROL) 5 mg tablet Take 1 tablet by mouth once daily.04/16/2025tive pantoprazole DR (PROTONIX) 40 mg tablet TAKE 1 TABLET BY MOUTH EVERY DAY ON AN EMPTY STOMACH 30 MINUTES PRIOR TO ZWBKNXPVOQ28/30/2025tive Active Problems ProblemNoted DateDiagnosed DateProstate zwyxhj5408/17/2022 Encounters DateTypeDepartmentCare TaxpQrcxhyhyocj10/30/2025 11:30 AM EDTOffice Visit Radiation Oncology [address] [place] [address] [place] [address] Ronda Bartlett MD Cancer of prostate w/med recur risk (T2b-c or [place] 7 or PSA 10-20) (HCC) (Primary Dx)06/17/2025Travelfrom Last 3 Months Immunizations ImmunizationAdministration DatesNext DueCOVID-19 original vaccine, full dose, monovalent (MODERNA)12/01/2020,11/05/2020influenza (LAIV) vaccine, nasal, unspecified quoagiqqore68/23/2021,06/04/2019influenza (aIIV3) vaccine, age 65+ yr, trivalent, PF (FLUAD)06/10/2021,06/04/2019influenza (aIIV4) vaccine, age 65+ yr, quadrivalent, PF (FLUAD QUAD)06/14/2023,2pneumococcal polysaccharide (PPV23) vaccine, 23 valent (PNEUMOVAX 23)10/04/2018tetanus diphtheria pertussis (Tdap) vaccine, age 7+ yr (ADACEL, BOOSTRIX)01/05/2023 Family History Medical HistoryRelationCommentsSkin CancerPaternal Uncle 1CancerPaternal Uncle 2 RelationStatusCommentsPaternal Uncle 1AlivePaternal Uncle 2Alive Social History Tobacco UseTypesPacks/DayYears UsedDateSmoking Tobacco: FormerCigarettes0.54 03/03/1957 - 1Smokeless Tobacco: Never Tobacco Cessation:Counseling Given: Not Answered Alcohol UseStandard Drinks/WeekCommentsYes0 (1 standard drink = 0.6 oz pure alcohol)SociallyPHQ-2AnswerDate RecordedPHQ-2 fdgqj0815Area Deprivation IndexAnswerDate RecordedNational Score (1-100), lower number is lower risk80 08/17/2023State Score (1-10), lower number is lower ompj2333Data from: https://www.neighborhoodatlas.[facility]edu/. Last address used for ud[address]08/17/2023Sex and Gender InformationValueDate Recorded Sex Assigned at BirthNot on fileLegal FraJobx22/02/2012 10:08 AM ESTGender IdentityNot on fileSexual OrientationNot on file Last Filed Vital Signs Vital SignReadingTime TakenCommentsBlood Xckoswzd26/5009 11:18 AM EDT repeat 89/52--denies c/o lightheadenss or bswzhxymVqzrb3172/30/2025 11:18 AM EDT Lvbsqlekwms19.3 ??C (97.3 ??F)06/17/2025 11:18 AM EDTRespiratory Rate20 06/17/2025 11:18 AM EDTOxygen Bchfmjhcps51%06/17/2025 11:18 AM EDTInhaled Oxygen Concentration--Mtqdvs99.3 kg (185 lb 13.6 oz)06/17/2025 11:18 AM FOCPpbmjb863.5 cm (5' 9.5 )03/03/2021 2:05 PM EDTBody Mass Index27.05003/03/2021 2:05 PM EDT Plan of Treatment DateTypeDepartmentCare Team (Latest Contact Info)Lutjfkgnijs08/02/2025 3:15 PM ESTOffice Visit Radiation Oncology [address] [place], [place] [id number] Ronda Bartlett MD [address] [place] [address] 2 month follow upHealth MaintenanceDue DateLast DoneCommentsAnxiety Screening 1963Depression Mmbpfbphc20/02/1964Shingrix Vaccine (1 of 2)1995RSV Vaccine (1 - 1-dose 75+ series)1Diabetes Ntglhalnw00/ Advance Directive Ajtubsceno14/01/2025Medicare Advantage Annual Wellness Visit 5Covid-19 Vaccine ( - 2024- season)/, 06/14/2023, 07/23/2022, Additional history existsDTaP,Tdap,Td Vaccine (2 - Td or Tdap) 04/20/102612/20/2023Pneumococcal Vaccine: 50+Vsflbisba45/17/2019, 10/04/2018, 06/24/2015Influenza XuihvlwUuuganpca77/22/2025, 07/30/2024, 06/14/2023, Additional history exists Procedures Procedure NamePriorityDate/TimeAssociated DiagnosisCommentsEXTERNAL LAB 06/04/2025 4:01 PM EDT PSA (OUTSIDE)Ntxqyvo7506/02/2025 from Last 3 Months Results * EXTERNAL LAB (06/04/2025 4:01 PM EDT) Narrative Authorizing ProviderResult TypeResult StatusExternal Provider PA-CLABORATORY Final Result * PSA (OUTSIDE) (06/02/2025)ComponentValueRef RangeTest MethodAnalysis Time Performed AtPathologist SignaturePSA.2.75Specimen (Source)Anatomical Location / LateralityCollection Method / VolumeCollection TimeReceived TimeBLOOD SPECIMEN / Qhtvxov5706/02/2025 Narrative Authorizing ProviderResult TypeResult StatusCcf ProviderLABORATORYFinal Result from Last 3 Months Insurance Care Teams Team MemberRelationshipSpecialtyStart DateEnd Date Nico Lino DO [address] [place] [address] PCP - GeneralInternal Medicine02/10/21 Joseph Vasques Jr. [address] [facility] [place] [id number] Urology02/10/21
--- OUTSIDE RECORDS SUMMARY | 2025-08-18 14:42 | XMS_ITS | CCD ---
Author Organization [facility] Care Team Providers Care Fruit Or Nut Farmer Name Role Phone PHYSICIAN, DEFAULT Unavailable Unavailable PHYSICIAN, DEFAULT Unavailable Unavailable NICO LINO Unavailable Unavailable Nico Lino DO Primary Care Provider Joseph Vasques Jr. Unavailable Nico Lino DO Primary Care Provider Joseph Vasques Jr. Unavailable NICO LINO Primary Care Physician Nico Lino Unavailable DR NICO LINO Admitting Unavailable MAGO, DR MAS Attending Unavailable BALL, DR MAS Primary Care Unavailable MAGO, DR MAS Consulting Unavailable MAGO, DR MAS Admitting Unavailable BALL, DR MAS Attending Unavailable MAGO, DR MAS Primary Care Unavailable MAGO, DR MAS Consulting Unavailable ADOLFO, DR VICKI Delcid Admitting Unavailable ADOLFO, DR VICKI Delcid Attending Unavailable BALL, DR MAS Primary Care Unavailable ADOLFO, DR VICKI Delcid Consulting Unavailable MAGO, DR MAS Primary Care Unavailable ANA ., CYNTHIA Admitting Unavailable ANA ., CYNTHIA Attending Unavailable FAUSTINA ., HALLE CASTELLANOS Consulting Unavailabl e ADOLFO, DR VICKI Delcid Admitting Unavailable ENGRENATO, DR VICKI Delcid Attending Unavailable BALL, DR MAS Primary Care Unavailable MAGO, DR MAS Admitting Unavailable MAGO, DR MAS Attending Unavailable BALL, DR MAS Primary Care Unavailable MAGO, DR MAS Consulting Nico Gonzalez DO Primary Care Provider HENRIQUE LANDRUM Attending Unavailable CONCHITA KENNY Attending HUMA Jarrell Referring Unavailable Nico Lino MD Primary Care Provider Nico Lino DO Primary Care Provider Nico Lino DO Attending Provider Mabel Murdock CMA Attending Provider Unavaila ble Nico Lino DO Primary Care Provider Nico Lino DO Attending Provider [phone] Brigid Avila MD Attending Provider NICO LINO Primary Care Unavailable Ronda BARTLETT Attending Unavailable NICO LINO Primary Care Unavailable Ronda BARTLETT Attending Unavailable Ronda BARTLETT Referring Unavailable ENGRUSTYR G DIMITRY Attending Unavailable NICO LINO Primary Care Unavailable Tevin Peralta MD Attending Provider [phone] Tevin Peralta MD Other Provider [phone] Tevin Peralta Attending Unavailable Tevin Peralta Admitting Unavailable Nico Lino Primary Care Unavailable Allergies Allergy ClassificationReported Allergen(s)Allergy TypeDate of OnsetReaction(s) Facility (1 source)Shellfish Containing ProductsDrug allergy (disorder)06-00-7244[facility] (3 sources)Seafood; Translations: [Seafood]Drug allergyUC Health (1 source)patient allergy list reviewed by nurse or physiciaPropensity to adverse obbwpmwyh35-01-1081Ptedwac:SiteWit Other (1 source)Shrimp product; Translations: [Shrimp]Propensity to adverse reactions (disorder)[facility] Repository (1 source)No Known Medication Allergies; Translations: [No Known Medication Allergies]Propensity to adverse reactions (disorder)[facility] Repository Medications Current Medications MedicationDrug Class(es)DatesSig (Normalized)Sig (Original)aspirin 81 mg delayed release oral tablet (20 sources)Platelet Aggregation Inhibitor, Nonsteroidal Anti-inflammatory Drug Start: 33-02-5311tbkw 1 tablet by mouth once dailyAspirin 81 mg tablet,delayed release (DR/EC) Active 81 MG PO Daily November 23, 2023 1:00am Complies with drug therapyComment on above:Take by mouth.atenolol 25 mg oral tablet (20 sources)beta-Adrenergic BlockerStart: 27-79-6997ybcj 1 tablet by mouth once dailyAtenolol 25 mg tablet Active 25 MG PO Daily 90 90 3 April 16, 2025 1:48pm On Hold: low BP Complieswith drug therapyStart: 01-01-2024 End: 52-89-7983mrex 1 tablet by mouth once dailyAtenolol 50 mg tablet Discontinued 0 .ROUTE .COMPLEX 90 3 January 19, 2025 3:04pm April 16, 2025 1:50pm TAKE 1 TABLET BY MOUTH EVERY DAYStart: 01-14-2021 End: 84-61-6073sspm 1 tablet by mouth once dailyAtenolol 50 mg tablet Discontinued 50 MG PO Daily November 23, 2023 1:00am January 01, 2024 9:26am Comment on above:Take 50 mg by mouth.calcium carbonate 1500 mg / cholecalciferol 200 unt oral tablet (2 sources)Vitamin DStart: 21-96-8479cxuf 1 tablet by mouth once dailycalcium (as carbonate)-vitamin D 600 mg-200 units oral tablet 1 tab(s), Oral, Daily, Prophylaxis Start Date: 06/16/21 Status: Orderedcyanocobalamin, vitamin B-12, (VITAMIN B12 ORAL) (3 sources)cyanocobalamin, vitamin B-12, (VITAMIN B12 ORAL) Take by mouth. Activecyanocobalamin, vitamin B-12, (VITAMIN B12 ORAL) Take by mouth. 0 Active Fiber (1 source)Start: 85-63-8374jecx 1 capsule by mouth once dailyFiber capsule Active 1 CAP PO Daily June 25, 2025 12:00am Complies with drug therapyfolic acid 1 mg oral tablet (20 sources)Start: 58-61-8457qrwf 1 tablet by mouth once dailyFolic Acid 1 mg tablet Active 0 .ROUTE .COMPLEX 90 3 August 19, 2024 8:31am TAKE 1 TABLET BY MOUTH EVERY DAY Complies with drug therapyStart: 11-23-2023 End: 99-59-2609sbrp 1 tablet by mouth once dailyFolic Acid 1 mg tablet Discontinued 1 MG PO Daily November 23, 2023 1:00am August 19, 2024 8:31amfolic acid 0.4 mg / vitamin b12 0.5 mg oral tablet (1 source)Vitamin J55Ssbfd: 28-32-2697myxu 1 tablet by mouth once dailyVitamin D65-Wzugy Acid 500-400 mcg tablet Active 1 TAB PO Daily June 25, 2025 12:00am administer with a meal Complies with drug therapyglipiZIDE 5 mg oral tablet (11 sources)SulfonylureaStart: 03-24-2025 End: 00-03-6759sdtk 1 tablet by mouth once dailyGlipizide 5 mg tablet Active 5 MG PO Daily 90 90 3 April 16, 2025 1:50pm Complies with drug therapyketorolac tromethamine 5 mg/ml ophthalmic solution (3 sources)Nonsteroidal Anti-inflammatory Drug, Cyclooxygenase InhibitorStart: 07-02-2024 End: 48-98-3439fjeb 1 drop(s) into the eye(s) in the morningketorolac (Acular) 0.5 % ophthalmic solution Indications: Age-related nuclear cataract of both eyes Administer 1 drop into affected eye(s) in the morning and 1 drop before bedtime. 5 mL 1 07/02/2024 08/01/2024 ActiveStart: 05-14-2024 End: 59-38-2340ynrh 1 drop(s) into the eye(s) in the morningketorolac (Acular) 0.5 % ophthalmic solution Indications: Age-related nuclear cataract of both eyes Administer 1 drop into affected eye(s) in the morning and 1 drop before bedtime. 5 mL 1 05/14/2024 06/13/2024 Activelisinopril 10 mg oral tablet (20 sources)Angiotensin Converting Enzyme InhibitorStart: 01-01-2024 End: 29-41-4267icsz 1 tablet by mouth once dailyLisinopril 10 mg tablet Active 0 .ROUTE .COMPLEX 90 3 January 19, 2025 3:03pm On Hold: hypotension TAKE 1 TABLET BY MOUTH EVERY DAY Complies with drug therapyStart: 01-14-2021 End: 31-64-2051zouz 1 tablet by mouth once dailyLisinopril 10 mg tablet Discontinued 10 MG PO Daily November 23, 2023 1:00am January 01, 2024 9:26am Comment on above:Take 10 mg by mouth.loperamide hydrochloride 2 mg oral tablet (10 sources)Opioid AgonistStart: 46-47-7338xluo 1 tablet by mouth every four hours as neededImmodium A-D 2 mg Tab 2 mg = 1 tab(s), Oral, q4hr, PRN for loose stool Start Date: 06/16/21 Status: Orderedloperamide HCl (IMODIUM ORAL) Take by mouth. Activeloperamide HCl (IMODIUM ORAL) Take by mouth. 0 ActiveComment on above:Take by mouth.ofloxacin 3 mg/ml ophthalmic solution (3 sources)Quinolone AntimicrobialStart: 07-02-2024 End: 73-78-3824sqhp 1 drop(s) into the eye(s) five times dailyofloxacin (Ocuflox) 0.3 % ophthalmic solution Indications: Age-related nuclear cataract of both eyes Administer 1 drop into the right eye 5 (five) times a day for 1 day Starting 1 day before surgery,continue after surgery as directed 5 mL 1 07/02/2024 07/03/2024 ActiveStart: 05-14-2024 End: 29-72-4373suxi 1 drop(s) into the eye(s) five times dailyofloxacin (Ocuflox) 0.3 % ophthalmic solution Indications: Age-related nuclear cataract of both eyes Administer 1 drop into the right eye 5 (five) times a day for 1 day Starting 1 day before surgery,continue after surgery as directed 5 mL 1 05/14/2024 05/15/2024 Activepantoprazole 40 mg delayed release oral tablet (10 sources)Proton Pump InhibitorStart: 03-25-2025 End: 11-46-5413Jofclmzjpjum 40 mg tablet,delayed release (DR/EC) Active 40 MG PO Daily 90 90 3 April 16, 2025 1:52pm take on empty stomach, 30 minutes prior to bkfst Complies with drug therapyprednisoLONE acetate 10 mg/ml ophthalmic suspension (6 sources)CorticosteroidStart: 77-44-0978fzyhtnghKJMZ acetate (PRED FORTE) 1 % ophthalmic suspension Administer 1 drop into both eyes four times a day (morning, noon, evening, bedtime) for 14 days. 07/03/2024 ActiveStart: 07-02-2024 End: 52-33-3278wwzveduwLZUX acetate (Pred-Forte) 1 % ophthalmic suspension Indications: Age-related nuclear cataract of both eyes Administer 1 drop into both eyes in the morning and 1 drop at noon and 1 drop in theevening and 1 drop before bedtime. Do all this for 14 days. 5 mL 1 07/03/2024 07/17/2024 Active Start: 05-14-2024 End: 52-60-4834rcmqigjhOUPL acetate (Pred-Forte) 1 % ophthalmic suspension Indications: Age-related nuclear cataract of both eyes Administer 1 drop into both eyes in the morning and 1 drop at noon and 1 drop in theevening and 1 drop before bedtime. Do all this for 14 days. 5 mL 1 05/14/2024 05/28/2024 Active propylene glycol 6 mg/ml ophthalmic solution (8 sources)Start: 32-78-6426Eofmbmlsv Glycol (Systane Complete) 0.6 % drops Active 1 DROPS EYE-BOTH Four times daily as needed for dry eye(s) July 30, 2024 1:00am Complies with drug therapyStart: 06-12-6906Esrzisgxb Glycol (Systane Complete) 0.6 % drops Active 1 DROPS EYE-BOTH Four times daily as needed N ovember 2023 1:00amSod Picosulf-Mag Ox-Citric Ac (2 sources)Start: 71-07-0561bwfj 1 mL by mouth once dailyStart: 55-60-9351ddlv 1 mL by mouth once dailySod Picosulf-Mag Ox-Citric Ac (Clenpiq) 10 mg-3.5 gram- 12 gram/175 mL solution Active 175 ML PO Daily 1 June 17, 2025 12:00am please follow instructions provided by Dr. Peralta's office. Complies with drug therapytamsulosin hydrochloride 0.4 mg oral capsule (6 sources)alpha-Adrenergic BlockerStart: 06-09-2022 End: 77-26-7562zuzi 1 capsule by mouth once dailytamsulosin 0.4 mg Cap 0.4 mg = 1 cap(s), Oral, Daily, # 30 cap(s), Refills(s) 11, Pharmacy: [id number], 173, cm, 11/02/21 11:02:00 EST, Height/Length Dosing, 99.9, kg, 05/03/22 10:56:00 EDT, Weight Dosing Start Date: 06/09/22 Status: OrderedComment on above: Take 0.4 mg by mouth once daily.vitamin B12 (1 source)Vitamin Q84Meypl: 79-90-3917zend 1 tablet under the tongue once daily Cyanocobalamin 1000 MCG 1 tablet under the tongue and allow to dissolve Sublingual Once a day for 90 days Jul, Active Completed/Discontinued Medications MedicationDrug Class(es)DatesSig (Normalized)Sig (Original)atorvastatin 80 mg oral tablet (20 sources)HMG-CoA Reductase InhibitorStart: 66-81-0276myisqvqgqnps (LIPITOR) 40 mg tablet Take 40 mg by mouth. 01/14/2021 ActiveStart: 01-14-2021 End: 00-11-2643dmhe 1 tablet by mouth once daily at bedtimeAtorvastatin 80 mg tablet Discontinued 80 MG PO Daily at bedtime November 23, 2023 1:00am March 25, 2024 7:02amComment on above:Take 80 mg by mouth.Take 40 mg by mouth.B-12 - up to 1000 mcg (4 sources)Start: 67-82-9704H-12 - up to 1000 mcg Nov, 1000 mcgCalcium (1 source)Phosphate Binder, Calcium End: 21-59-8506EOUGVFU ORAL Take by mouth. 0 02/17/2022 Discontinued (Discontinued by another Health Care Provider)Comment on above:Take by mouth. celecoxib 200 mg oral capsule (14 sources)Nonsteroidal Anti-inflammatory DrugStart: 11-21-2024 End: 63-38-7819eiun 1 capsule by mouth once dailyCelecoxib 200 mg capsule Discontinued 200 MG PO Daily November 21, 2024 11:28am May 28, 2025 2:16pmcholecalciferol, vitamin D3, (VITAMIN D3 ORAL) (1 source) End: 39-68-1427tgjlfwpblhafxws, vitamin D3, (VITAMIN D3 ORAL) Take by mouth. 0 02/17/2022 Discontinued (Discontinued by another Health Care Provider)Comment on above:Take by mouth.glimepiride 4 mg oral tablet (20 sources)SulfonylureaStart: 07-20-2024 End: 14-32-3883jide 1 tablet by mouth before breakfastGlimepiride 4 mg tablet Discontinued 0 .ROUTE .COMPLEX 90 3 July 20, 2024 7:49am April 16, 2025 1:50pm TAKE 1 TABLET BY MOUTH IN THE MORNING 30 MINUTES BEFORE BREAKFASTStart: 11-23-2023 End: 87-74-0763qdmn 2 mg by mouth once daily in the morningGlimepiride 4 mg tablet Discontinued 2 MG PO Every morning November 23, 2023 1:00am July 20, 2024 7:49amStart: 39-03-1098dfmg 2 mg by mouth once daily in the morning Glimepiride Active 2 MG PO Every morning November 23, 2023 1:00amStart: 03-01-2021 glimepiride (AMARYL) 2 mg tablet 03/01/2021 ActiveStart: 65-29-1650nweg 1 tablet by mouth once dailyglimepiride 1 mg Tab 1 mg = 1 tab(s), Oral, Daily, Refills(s) 0, Blood glucose Start Date: 01/14/21 Status: Orderedtake 1 tablet by mouth before breakfastglimepiride (Amaryl) 4 MG tablet TAKE 1 TABLET BY MOUTH IN THE MORNING 30 MINUTES BEFORE BREAKFAST ActiveGlimepiride 2 MG 1 1/2 tab, 30 minutes prior to bkfst Orally Once a day for 30 days ActiveLeuprolide (3 sources)Gonadotropin Releasing Hormone Receptor Agonist End: 45-81-7302ooxyvxpabt acetate (LUPRON DEPOT INTRAMUSC.) Inject intramuscularly. 0 08/17/2023 Discontinued (Course of therapy completed) leuprolide acetate (LUPRON DEPOT INTRAMUSC.) Inject intramuscularly. 0 Active Comment on above:Inject intramuscularly.metFORMIN hydrochloride 1000 mg oral tablet (20 sources)BiguanideStart: 04-17-2024 End: 44-96-4616keod 1 tablet by mouth twice daily at dinnerMetformin 1,000 mg tablet Discontinued 0 .ROUTE .COMPLEX 180 3 April 17, 2024 12:50pm May 28, 2025 2:14pm TAKE 1 TABLET BY MOUTH 2 TIMES A DAY with breakfast and evening mealStart: 11-23-2023 End: 21-92-3871qiun 1 tablet by mouth twice daily at mealtimeMetformin 1,000 mg tablet Discontinued 1000 MG PO Twice daily with meals November 23, 2023 1:00am April 17, 2024 12:50pmStart: 01-14-2021 End: 14-54-8350zker 1 tablet by mouth twice dailymetformin 1000 mg oral tablet 1,000 mg = 1 tab(s), Oral, BID, Refills(s) 0, Blood glucose Start Date: 01/14/21 Status: Orderedtake 1 tablet by mouth every twenty-four hoursmetFORMIN HCl 1000 MG 1 tablet with a meal Orally Once a day ActiveComment on above:twice daily. sertraline 100 mg oral tablet (20 sources)Serotonin Reuptake InhibitorStart: 04-09-2024 End: 50-98-1564cvzn 1 tablet by mouth at bedtimeSertraline 100 mg tablet Discontinued 0 .ROUTE .COMPLEX 90 0 October 28, 2024 10:06am February 03, 2025 1:10pm TAKE 1 TABLET BY MOUTH AT BEDTIMEStart: 01-14-2021 End: 37-70-0370srqs 1 tablet by mouth once daily at bedtimeSertraline 100 mg tablet Discontinued 100 MG PO Daily at bedtime November 23, 2023 1:00am April 09, 2024 8:49amComment on above:Take 100 mg by mouth. Problems Active Problems Problem ClassificationProblemDateDocumented DateEpisodic/ChronicAbdominal pain (5 sources)Abdominal pain; Translations: [Unspecified abdominal pain]06-03-2025 EpisodicAcute bronchitis (1 source)Acute bronchitis; Translations: [Acute bronchitis due to other specified organisms]EpisodicAnxiety disorders (15 sources)Generalized anxiety disorder; Translations: [Generalized anxiety disorder]ChronicAppendicitis and other appendiceal conditions (2 sources)Lpfirulwocgd43-51-0836DnhchgoxWrdetqz tract disease (2 sources)Biliary calculus; Translations: [Calculus of gallbladder without cholecystitis without obstruction]29-58-6957DvajltynMxdkdo of prostate (20 sources)Malignant tumor of prostate; Translations: [Malignant neoplasm of prostate]Onset: 06-33-2186NoovxtbCgadjum on above:TRUS/Bx 2020Gleason 4+3, group 3EBT, Brachytherapy and ADTTRUS/Bx 2020,Asaf 4+3, group 3,EBT, Brachytherapy and ADTCataract (6 sources)Bilateral age-related nuclear cataracts; Translations: [Age-related nuclear cataract, bilateral]Onset: 445726-95-5863YploixcJciyltq kidney disease (20 sources)Chronic kidney disease; Translations: [Chronic kidney disease, unspecified]86-75-1606IkcktzpJwauljk on above:Renal US: no tumor, stones or obstruction - oronary atherosclerosis and other heart disease (20 sources)Coronary occlusion; Translations: [Coronary arteriosclerosis]Onset: 898969-93-2568OhecyakWllkbmoeos and other anemia (5 sources)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; Translations: [Folate deficiency anemia, unspecified]EpisodicDeficiency and other anemia (5 sources)Anemia; Translations: [Anemia, unspecified]EpisodicDeficiency and other anemia (20 sources)Pernicious anemia; Translations: [Vitamin B12 deficiency anemia due to intrinsic factor deficiency]30-48-9104EvbrxsjkXkkmjykltn and other anemia (2 sources)Vitamin B12 deficiency anemia due to intrinsic factor deficiency EpisodicDeficiency and other anemia (1 source)Folate deficiency anemia, unspecifiedEpisodicDeficiency and other anemia (9 sources)Nutritional anemia; Translations: [Folate deficiency anemia, unspecified]11-71-1821UvdspzrdLoynshla mellitus with complications (20 sources)Hyperglycemia due to type 2 diabetes mellitus; Translations: [Type 2 diabetes mellitus with hyperglycemia]Onset: 85-85-2712FbuypldTwupejio mellitus without complication (2 sources)Diabetes prlpuzjf30-52-7645CbbnzomDgqpjyajm of lipid metabolism (20 sources)Pure hypercholesterolemia; Translations: [Familial hypercholesterolemia]Onset: 09-71-6096YbamekiK Codes: Cut/pierceb (1 source)Contact with other sharp object(s), not elsewhere classified, initial encounter; Translations: [[facility] SHRP OB NOT ELSW CLASS INI]Onset: 01-09-2023 EpisodicEssential hypertension (20 sources)Hypertensive disorder; Translations: [Essential hypertension]Onset: 465545-62-9436OzkqaksNrnaacrwahibj symptoms and ill-defined conditions (2 sources)Urge incontinence of rbdcu37-87-6154ClngzscQosuepnsgea of prostate (9 sources)Benign prostatic hypertrophy with outflow obstruction; Translations: [Benign prostatic hyperplasia with lower urinary tract symptoms]Onset: 76-70-8344AxqlkbdBiwqkfihwhqjw and screening for infectious disease (2 sources)Encounter for immunization; Translations: [Vaccination given]Onset: 64-96-9141ZebvdmtlSsnk wounds of extremities (7 sources)Unspecified open wound of left middle finger without damage to nail, initial encounter; Translations: [Laceration of upper arm]Onset: 01-05-2023 EpisodicOther aftercare (4 sources)H/O: high risk medication; Translations: [Other nursing home (current) drug therapy]EpisodicOther aftercare (1 source)Other medical terminologist (current) drug therapy; Translations: [OTH SUPERVISING APPRAISER CURRENT DRUG THERAPY]Onset: 98-76-7886RzesxcdmJiqrz aftercare (1 source)computer terminal operator (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) use of aspirin; Translations: [SUPERVISING APPRAISER CURRENT USE OF ASPIRIN]Onset: 48-18-9776BcucdvhyZnawd aftercare (1 source)prison (current) use of oral hypoglycemic drugs; Translations: [SUPERVISING APPRAISER USE ORAL HYPOGLYCEMIC DX]Onset: 33-72-9774QgmoaxioJflpo aftercare (1 source)Long-term current use of drug therapy; Translations: [Other medical terminologist (current) drug therapy]EpisodicOther and ill-defined cerebrovascular disease (4 sources)Cerebral atherosclerosis; Translations: [Cerebral atherosclerosis] 06-74-4358ReptybvKgtaduh on above:CT: age related atrophy, white matter disease, remote lacunar infarct - 05/2025Other diseases of kidney and ureters (1 source)Urinary tract obstruction; Translations: [Other obstructive and reflux uropathy]Onset: 30-07-1153VzihqvcwTvqst diseases of veins and lymphatics (20 sources)Peripheral venous insufficiency; Translations: [Venous insufficiency (chronic) (peripheral)]43-48-9544OctizfimJtkbl diseases of veins and lymphatics (4 sources)Venous insufficiency (chronic) (peripheral); Translations: [Venous (peripheral) insufficiency, unspecified]EpisodicOther injuries and conditions due to external causes (1 source)History of fall; Translations: [History of falling]EpisodicOther non- traumatic joint disorders (7 sources)Hip pain; Translations: [Pain in right hip]69-33-9006IcazlukwQskqf non-traumatic joint disorders (1 source)Pain in right hip; Translations: [Pain in joint, pelvic region and thigh]25-71-0253LltahwdeWwuuf nutritional; endocrine; and metabolic disorders (2 sources)Body mass index 30+ - obesity; Translations: [Body mass index 30.0- 30.9, adult]Onset: 59-61-7529PvfblnaXldwj nutritional; endocrine; and metabolic disorders (1 source)Obesity; Translations: [Obesity, unspecified]Onset: 78-05-4034Ufiemih Other nutritional; endocrine; and metabolic disorders (1 source)Simple obesity ; Translations: [Other obesity due to excess calories] Onset: 91-95-4071EkihzkwRownx nutritional; endocrine; and metabolic disorders (20 sources)Weight decreased; Translations: [Abnormal weight loss]03-24-2025 EpisodicOther screening for suspected conditions (not mental disorders or infectious disease) (5 sources)Raised prostate specific antigen; Translations: [Elevated prostate specific antigen [PSA]] Resolved: 684439-02-2945SkqvrhvkUagiq upper respiratory disease (5 sources)Allergic rhinitis due to pollen; Translations: [Allergic rhinitis due to pollen]ChronicSpondylosis; intervertebral disc disorders; other back problems (6 sources)Lumbar spondylosis; Translations: [Spondylosis without myelopathy or radiculopathy, lumbar region]25-80-2438VookgzeAnylohujaqw; intervertebral disc disorders; other back problems (10 sources)Low back pain; Translations: [Low back pain radiating to right lower extremity]93-97-1547RvmvbkviFoyvjxesn-related disorders (1 source)Tobacco user; Translations: [Nicotine dependence, cigarettes, in remission]ChronicUnclassified (1 source)Exposure to acute respiratory syndrome coronavirus 2; Translations: [Contact with and (suspected) exposure to COVID-19]Unclassified (2 sources)R10.13 - Epigastric pain,R63.4 - Abnormal weight loss,Z12.11 - Encounter for screening for malignant neoplasm of colonUnclassified (1 source)Patient encounter status Past or Other Problems Problem ClassificationProblemDateDocumented DateEpisodic/ChronicDeficiency and other anemia (1 source)Anemia, unspecified; Translations: [ANEMIA UNSPECIFIED]Onset: 85-76-9596XhjegqwhGjhydzs and fatigue (1 source)Malaise and fatigue; Translations: [Other malaise and fatigue]Onset: 55-59-4228JwlnbjenTrhir connective tissue disease (1 source)Pain in left foot; Translations: [Pain in left foot] Resolved: 48-58-7336TjfovuwjHcnni non-traumatic joint disorders (1 source)Arthralgia of the ankle and/or foot; Translations: [Pain in left ankle and joints of left foot] Resolved: 60-86-1428DzvczqnoKgvagnlf codes; unclassified (1 source)Requires influenza virus vaccination; Translations: [Need for prophylactic vaccination and inoculation, Influenza]Onset: 27-11-8032Btgiwfvc Screening and history of mental health and substance abuse codes (2 sources)History of tobacco use; Translations: [Personal history of tobacco use, presenting hazards to health]Onset: 18-48-7531TuivmhyjDumtyextudsd (1 source)Long-term current use of drug therapy; Translations: [Long-term (current) use of other medications]Onset: 00-10-9466Mcmfc infection (1 source)Herpes zoster with complication; Translations: [Zoster with other complications] Resolved: 37-15-7191Jywsgnnp Results Test NameValueInterpretationReference RangeFacilityGlucose Poct Glucometerson 83-97-4742Kuiotix [Mass/Vol]198 mg/dLNoUNC Health Rockingham Physician GroupComment on above:Result Comment: Random Glucose Reference Range is dependent on time and content of last meal. Glucose of more than 200 mg/dL in a nonstressed, ambulatory subject supports the diagnosis of Diabetes Mellitus. PERFORMED BY: [place] [id number] [place] [address] PATHOLOGIST [employer] ANDERS JOAQUIN M.D.Performed By: #### GLULS #### Point of Care testing ,[facility] 68-91-6206YSUBKnezrj Visit (JOSE) SEGUN JOHNSON ([id number]) 1945 M Date Time Provider Department 06/17/25 11:30 AM Ronda BARTLETT During your visit today, we recorded the following information about you: Temperature Pulse Respiration Blood pressure 97.3 degrees 68/minute 20/minute 82/50 Weight 84.3 kg Raudel Waddell RN 06/24/2025 2:24 PM Signed AUA= 5 Ronda Bartlett MD 06/24/2025 2:24 PM Signed ) Parviz Jon/radiation Oncology - Follow Up Note PATIENT NAME: [...] Brachytherapy boost: 100 Gy, Pd-103 INTERVAL HISTORY: Patient has had some new medical issues including 15 pound weight loss difficulty with diabetic control. Denies any focal areas of skeletal pain. Denies any hematuria. No bladder changes otherwise. PSA HISTORY: PSA. (no units) Date Value 06/02/2025 2.75 11/21/2024 1.35 07/30/2024 1.21 02/14/2024 0.61 ALLERGIES No Known Allergies glipiZIDE (GLUCOTROL) 5 mg tablet Take 1 tablet by mouth once daily. pantoprazole DR (PROTONIX) 40 mg tablet TAKE 1 TABLET BY MOUTH EVERY DAY ON AN EMPTY STOMACH 30 MINUTES PRIOR TO BREAKFASTS folic acid 1 mg tablet once daily. prednisoLONE acetate (PRED FORTE) 1 % ophthalmic suspension Administer 1 drop into both eyes four times a day (morning, noon, evening, bedtime) for 14 days. cyanocobalamin, vitamin B-12, (VITAMIN B12 ORAL) Take by mouth. loperamide HCl (IMODIUM ORAL) Take by mouth. aspirin, enteric coated (ASPIRIN, ENTERIC COATED) 81 mg EC tablet Take by mouth. atenolol (TENORMIN) 25 mg tablet Take 25 mg by mouth. atorvastatin (LIPITOR) 80 mg tablet Take 80 mg by mouth. lisinopril (ZESTRIL, PRINIVIL) 10 mg tablet Take 10 mg by mouth. sertraline (ZOLOFT) 100 mg tablet Take 100 mg by mouth. metFORMIN (GLUCOPHAGE) 1,000 mg tablet TAKE 1 TABLET BY MOUTH 2 TIMES A DAY with breakfast and evening meal glimepiride (AMARYL) 2 mg tablet REVIEW OF SYSTEMS: D/N = 4-6/2-3 Hematuria: none Dysuria: Yes Incontinence: occ post void drib Urgency: moderate Catheter use: No Medications to aid urination: n - Total AUA Score: 5 Bowel movement frequency: 1/day Bowel movement quality: normal Blood per rectum: none ADT: Lupron for approximately 12 months currently off PHYSICAL EXAM: BP 82/50 Pulse 68 Temp 36.3 ?C (97.3 ?F) Resp 20 Wt 84.3 kg (185 lb 13.6 oz) SpO2 99% BMI 27.05 kg/m? KPS: 100 General appearance: Alert and [...] s/p Pelvic radiation and prostate brachytherapy boost. PSA has risen over the last 6 months. Patient also with multiple other medical issues and declining performance status. Recommend rechecking PSA in 2 to 3 months if continues to rise would recommend PSMA PET. Signed by: Ronda Bartlett MD cc: Nico Lino (Mikhail) [address] [id number] Portions of the above note extracted and edited from previous visit as well as active information included in the EMR. Allergies As of Date: 06/17/2025 (No Known Allergies) Date Reviewed: 06/17/2025 Reviewed by: Raudel Waddell RN - Fully Assessed Reason for Visit: Prostate Cancer [590] Primary Visit Diagnosis:Cancer of prostate w/med recur risk (T2b-c or Asaf 7 or PSA 10-20) ([facility]) [C61] Order(s):PSA (OUTSIDE) [8400469] Order #: [id number] PROSTATE-SPECIFIC ANTIGEN DIAGNOSTIC [SQPSA] Order #: [id number] FUTURE Prescriptions as of 06/24/2025 - glipiZIDE (GLUCOTROL) 5 mg tablet Take 1 tablet by mouth once daily. - pantoprazole DR (PROTONIX) 40 mg tablet TAKE 1 TABLET BY MOUTH EVERY DAY ON AN EMPTY STOMACH 30 MINUTES PRIOR TO BREAKFASTS - folic acid 1 mg tablet once daily. - prednisoLONE acetate (PRED FORTE) 1 % ophthalmic suspension Administer 1 drop into both eyes four times a day (morning, noon, evening, bedtime) for 14 days. - cyanocobalamin, vitamin B-12, (VITAMIN B12 ORAL) Take by mouth. - lo (more content not included)...NormalParkview Health Bryan HospitalBasophils Auto (Bld) [#/Vol]Ordered By: Brigid Avila on 42-63-6520Bonkjmrcy (Bld) [#/Vol] 0.1 10 3/uL0.0-0.1FSelect Medical OhioHealth Rehabilitation Hospital - DublinBasophils/100 WBC Auto (Bld) Ordered By: Brigid Avila on 99-60-4400Ppqqwxdpc/100 WBC (Bld)1.2 %0.2-2.0 [facility] CantonEosinophils/100 WBC Auto (Bld)Ordered By: Brigid Avila on 98-35-7601Ejarjgemrkb/100 WBC (Bld)2.6 %0.9-7.0[facility] CantonErythrocyte distribution width Auto (RBC) [Ratio]Ordered By: Brigid Avila on 40-51-6662Xmomkxqlzwl distribution width (RBC) [Ratio]14.7 % 11.0-15.0[facility] CantonGlobulin Calc (S) [Mass/Vol]Ordered By: Brigid Avila on 47-37-3559Peoolult (S) [Mass/Vol]4.7 g/dLSelect Medical Specialty Hospital - CantonGlomerular filtration rate (GFR) estimation in non- AmericanOrdered By: Brigid Avila on 79-11-5960QKC/1.73 sq M.predicted among non- blacks MDRD (S/P/Bld) [Vol rate/Area]33 mL/min/{1.73_m2}Low>=60 mL/min/1.73m 2 [facility] CantonHematocrit Auto (Bld) [Volume fraction]Ordered By: [facility] on 99-13-2310Awnenpwihf (Bld) [Volume fraction]37.3 %Low 42.0-54.0[facility] CantonHemoglobin [Mass/volume] in Blood Ordered By: [facility] on 96-71-1134Kdyuviaicb (Bld) [Mass/Vol]12.4 g/dLLow 14.0-18.0[facility] CantonLaboratory - Chemistry and Chemistry - challengeOrdered By: [facility] on 61-49-5849Edxpshs [Mass/Vol]3.3 g/dLLow 3.4-5.0[facility] CantonALP [Catalytic activity/Vol]89 U/L46-116 [facility] CantonALT [Catalytic activity/Vol]35 U/L16-63 [facility] CantonAST [Catalytic activity/Vol]25 U/L15-37 [facility] CantonBilirubin [Mass/Vol]0.8 mg/dL0.2-1.0[facility] CantonCalcium [Mass/Vol]9.3 mg/dL8.5-10.1FSelect Medical OhioHealth Rehabilitation Hospital - DublinChloride [Moles/Vol]102 mmol/J28-126SssorubnoSelect Medical Specialty Hospital - CantonCO2 [Moles/Vol]20.7 mmol/LLow21.0-32.0[facility] Creatinine [Mass/Vol]1.95 mg/dLHigh0.70-1.30[facility] GFR/1.73 sq M.predicted MDRD (S/P/Bld) [Vol rate/Area]40 mL/min/{1.73_m2}Low>=60 mL/min/1.73m 2FSelect Medical OhioHealth Rehabilitation Hospital - DublinGlucose [Mass/Vol]143 mg/dLHigh 74-106[facility] CantonPotassium [Moles/Vol]4.2 mmol/L3.5-5.1 [facility] CantonProtein [Mass/Vol]8.0 g/dL6.4-8.2FJoint Township District Memorial Hospitalodium [Moles/Vol]136 mmol/P491-277MwghwxfvoSelect Medical Specialty Hospital - CantonUrea nitrogen [Mass/Vol]30.0 mg/dLHigh7.0-18.0[facility] CantonUrea nitrogen/Creatinine [Mass ratio]15.4 mg/mgSelect Medical Specialty Hospital - CantonLaboratory - Hematology and Cell countsOrdered By: Brigid Avila on 27-39-4920Geqvmtmy granulocytes/100 WBC (Bld)0.4 %0.0-0.5FSelect Medical OhioHealth Rehabilitation Hospital - DublinLeukocytes [#/volume] corrected for nucleated erythrocytes in Blood by Automated counOrdered By: Brigid Avila on 67-68-7041FNH corrected for nucl RBC Auto (Bld) [#/Vol]8.3 10 3/uL4.0-11.0[facility] Lymphocytes Auto (Bld) [#/Vol]Ordered By: Brigid Avila on 20-02-9703Hdbcxhuxmke (Bld) [#/Vol]0.8 10 3/uLLow1.2-3.8[facility] Lymphocytes/100 WBC Auto (Bld)Ordered By: Brigid Avila on 06-10-2025 Lymphocytes/100 WBC (Bld)9.4 %Low20.5-60.0[facility] Auto (RBC) [Entitic mass]Ordered By: Brigid Avila on 63-28-8646JEE (RBC) [Entitic mass]29.2 pg25.9-34.0[facility] HospitalHC Auto (RBC) [Mass/Vol]Ordered By: Brigid Avila on 02-64-9333WSZU (RBC) [Mass/Vol]33.2 g/dL 29.9-35.2FSelect Medical OhioHealth Rehabilitation Hospital - DublinMCV Auto (RBC) [Entitic vol]Ordered By: Brigid Avila on 57-95-3758HUD (RBC) [Entitic vol]88.0 fL80.0-94.0[facility] CantonMonocytes Auto (Bld) [#/Vol]Ordered By: Brigid Avila on 91-96-6304Kckyxirxd (Bld) [#/Vol]0.4 10 3/uL0.3-0.8[facility] CantonMonocytes/100 WBC Auto (Bld)Ordered By: Brigid Margarita on 06-10-2025 Monocytes/100 WBC (Bld)5.0 %1.7-12.0[facility] CantonNeutrophils Auto (Bld) [#/Vol]Ordered By: Brigid Margarita on 60-16-8846Mcsnzrnmsex (Bld) [#/Vol]6.8 10 3/uLHigh1.4-6.5FSelect Medical OhioHealth Rehabilitation Hospital - DublinNeutrophils/100 WBC Auto (Bld)Ordered By: Brigid Margarita on 55-15-3124Eptnptvofdy/100 WBC (Bld)81.4 %High43.0-75.0[facility] CantonNo Panel InformationOrdered By: Brigid Margarita on 67-28-9878Lkojnzvyqpi # (Auto)0.2 10 3/uL0.0-0.7FSelect Medical OhioHealth Rehabilitation Hospital - DublinImmature Granulocyte # (Auto)0.03 10 3/uL0.00-0.03 [facility] CantonPlatelet mean volume Auto (Bld) [Entitic vol] Ordered By: Brigid Margarita on 80-03-0769Fiscugwe mean volume (Bld) [Entitic vol] 11.3 fL9.5-13.5FSelect Medical OhioHealth Rehabilitation Hospital - DublinPlatelets Auto (Bld) [#/Vol] Ordered By: Brigid Margarita on 75-82-9216Qqskmhguf (Bld) [#/Vol]372 10 3/cJ244-508 [facility] CantonRBC Auto (Bld) [#/Vol]Ordered By: Brigid Margarita on 72-85-6616POE (Bld) [#/Vol]4.24 10 6/uLLow4.70-6.10[facility] Health Centererum or plasma albumin/globulin mass ratioOrdered By: Brigid Avila on 28-33-3829Ucrxusq/Globulin [Mass ratio]0.7 {ratio}[facility] Centererum or plasma anion gap determinationOrdered By: Brigid Avila on 07-12-6269Xlfeg gap [Moles/Vol]17.5 mmol/LFSelect Medical [facility] Rehabilitation [facility] Dublin Basophils Auto (Bld) [#/Vol]Ordered By: Nico Lino on 49-13-8446Imwozervm (Bld) [#/Vol]0.2 10 3/uLHigh0.0-0.1FSelect Medical [facility]Health [facility] Basophils/100 WBC Auto (Bld)Ordered By: Nico Lino on 84-99-6994Wjbdrcawo/100 WBC (Bld)1.5 %0.2-2.0[facility] CantonEosinophils/100 WBC Auto (Bld)Ordered By: Nico Lino on 13-48-0407Xrqwgjmkbtn/100 WBC (Bld)4.4 % 0.9-7.0[facility] CantonErythrocyte distribution width Auto (RBC) [Ratio]Ordered By: Nico Lino on 74-99-5261Mpsbqgiilip distribution width (RBC) [Ratio]15.0 %11.0-15.0[facility] CantonGlobulin Calc (S) [Mass/Vol]Ordered By: Nico Lino on 00-50-5994Arzkghtn (S) [Mass/Vol]4.9 g/dLSelect Medical Specialty Hospital - CantonGlomerular filtration rate (GFR) estimation in non- AmericanOrdered By: Nico Lino on 06-02-2025 GFR/1.73 sq M.predicted among non-blacks MDRD (S/P/Bld) [Vol rate/Area]37 mL/min/{1.73_m2}Low>=60 mL/min/1.73m 2FSelect Medical [facility]Health Rehabilitation Hospital - [facility] Hematocrit Auto (Bld) [Volume fraction]Ordered By: Nico Lino on 06-02-2025 Hematocrit (Bld) [Volume fraction]38.1 %Low42.0-54.0[facility] CantonHemoglobin [Mass/volume] in BloodOrdered By: Nico Lino on 06-02-2025 Hemoglobin (Bld) [Mass/Vol]12.7 g/dLLow14.0-18.0[facility] CantonLaboratory - Chemistry and Chemistry - challengeOrdered By: Nico Lino on 07-79-8428Xexbdoz [Mass/Vol]3.4 g/dL3.4-5.0[facility] ALP [Catalytic activity/Vol]86 U/I80-672AxltppzikSelect Medical Specialty Hospital - CantonALT [Catalytic activity/Vol]30 U/R37-40SczizflbfSelect Medical Specialty Hospital - CantonAST [Catalytic activity/Vol]26 U/B16-86HspkwgiqrSelect Medical Specialty Hospital - CantonBilirubin [Mass/Vol]0.5 mg/dL0.2-1.0[facility] CantonCalcium [Mass/Vol]9.3 mg/dL8.5-10.1FSelect Medical OhioHealth Rehabilitation Hospital - DublinChloride [Moles/Vol]103 mmol/L 98-107[facility] CantonCO2 [Moles/Vol]24.1 mmol/L21.0-32.0 [facility] CantonCreatinine [Mass/Vol]1.79 mg/dLHigh0.70-1.30 [facility] CantonFree T4 [Mass/Vol]1.27 ng/dL0.76-1.46[facility] CantonGFR/1.73 sq M.predicted MDRD (S/P/Bld) [Vol rate/Area]45 mL/min/{1.73_m2}Low>=60 mL/min/1.73m 2FSelect Medical OhioHealth Rehabilitation Hospital - DublinGlucose [Mass/Vol]135 mg/aOBlec17-219LfaahnjaeSelect Medical Specialty Hospital - CantonPotassium [Moles/Vol]4.4 mmol/L3.5-5.1FSelect Medical [facility]Health Rehabilitation Hospital - DublinProtein [Mass/Vol] 8.3 g/dLHigh6.4-8.2FJoint Township District Memorial Hospitalodium [Moles/Vol]138 mmol/L 136-145[facility] CantonTSH Qn6.659 m[IU]/LHigh0.358-3.740 [facility] CantonUrea nitrogen [Mass/Vol]31.0 mg/dLHigh7.0-18.0 [facility] CantonUrea nitrogen/Creatinine [Mass ratio]17.3 mg/mg [facility] CantonLaboratory - Hematology and Cell countsOrdered By: Nico Lino on 32-59-9760Quksryuu granulocytes/100 WBC (Bld)0.3 %0.0-0.5 [facility] CantonLeukocytes [#/volume] corrected for nucleated erythrocytes in Blood by Automated counOrdered By: Nico Lino on 06-02-2025 WBC corrected for nucl RBC Auto (Bld) [#/Vol]10.5 10 3/uL4.0-11.0[facility] - CantonLymphocytes Auto (Bld) [#/Vol]Ordered By: Nico Lino on 37-30-1936Lhdrgshewsl (Bld) [#/Vol]2.1 10 3/uL1.2-3.8[facility] CantonLymphocytes/100 WBC Auto (Bld)Ordered By: Nico Lino on 75-46-6865Usxyeksnlms/100 WBC (Bld)20.3 %Low20.5-60.0[facility] HospitalH Auto (RBC) [Entitic mass]Ordered By: Nico Lino on 10-46-1288ZPE (RBC) [Entitic mass]29.4 pg25.9-34.0[facility] HospitalHC Auto (RBC) [Mass/Vol]Ordered By: Nico Lino on 81-97-3727ITJZ (RBC) [Mass/Vol]33.3 g/dL29.9-35.2FSelect Medical OhioHealth Rehabilitation Hospital - DublinMCV Auto (RBC) [Entitic vol] Ordered By: Nico Lino on 29-02-5251BMH (RBC) [Entitic vol]88.2 fL80.0-94.0 [facility] CantonMonocytes Auto (Bld) [#/Vol]Ordered By: Nico Lino on 31-41-9282Qptayadzn (Bld) [#/Vol]0.8 10 3/uL0.3-0.8[facility] CantonMonocytes/100 WBC Auto (Bld)Ordered By: Ncio Lino on 00-32-6120Azsvwonsh/100 WBC (Bld)7.4 %1.7-12.0[facility] Neutrophils Auto (Bld) [#/Vol]Ordered By: Nico Lino on 22-17-1780Wgcopyegidg (Bld) [#/Vol]6.9 10 3/uLHigh1.4-6.5FSelect Medical [facility]Health Rehabilitation [facility] Dublin Neutrophils/100 WBC Auto (Bld)Ordered By: Nico Lino on 06-02-2025 Neutrophils/100 WBC (Bld)66.1 %43.0-75.0[facility] CantonNo Panel InformationOrdered By: Nico Lino on 36-74-7998Laiyeusique # (Auto)0.5 10 3/uL0.0-0.7FSelect Medical OhioHealth Rehabilitation Hospital - DublinImmature Granulocyte # (Auto)0.03 10 3/uL0.00-0.03[facility] CantonProstate Specific Antigen Total2.75 ng/mL<=4.00[facility] CantonTotal Sbclmsqqbdhzermu486 ng/vY90-042MmxfurcvfSelect Medical Specialty Hospital - CantonComment on above:Performed at: Poll Everywhere[address] [id number] Director: Rocco Lopez PhD, Phone: [phone] Panel InformationOrdered By: Ronda Bartlett on 40-46-1645Grahqldoppiy Dadwz052 ng/jN019-756CgimtehqoSelect Medical Specialty Hospital - Canton Comment on above:Adult male reference interval is based on a population ofhealthy nonobese males (BMI <30) between 19 and 39 yearsold. Elysia et.al. JCEM 2017,102;1506-0554. PMID:[id number].Performed at: [facility] Everywhere[address] [id number] Director: Rocco Lopez PhD, Phone: [phone] mean volume Auto (Bld) [Entitic vol]Ordered By: Nico Lino on 90-48-9159Mrbytehr mean volume (Bld) [Entitic vol]11.4 fL9.5-13.5FSelect Medical OhioHealth Rehabilitation Hospital - DublinPlatelets Auto (Bld) [#/Vol]Ordered By: Nico Lino on 87-07-4389Iqujdjwbk (Bld) [#/Vol]378 10 3/hK467-095FhsnhkgvdSelect Medical Specialty Hospital - CantonRBC Auto (Bld) [#/Vol]Ordered By: Nico Lino on 91-56-7664UVK (Bld) [#/Vol]4.32 10 6/uLLow4.70-6.10[facility] Centererum or plasma albumin/globulin mass ratioOrdered By: Nico Lino on 06-02-2025 Albumin/Globulin [Mass ratio]0.7 {ratio}[facility] Centererum or plasma anion gap determinationOrdered By: Nico iLno on 42-58-1280Wzhhh gap [Moles/Vol]15.3 mmol/LFSelect Medical OhioHealth Rehabilitation Hospital - DublinBasophils Auto (Bld) [#/Vol]Ordered By: Nico Lino on 10-44-2615Xwrzswhip (Bld) [#/Vol]0.2 10 3/uL High0.0-0.1FSelect Medical OhioHealth Rehabilitation Hospital - DublinBasophils/100 WBC Auto (Bld)Ordered By: Nico Lino on 73-65-6697Gymfocrnf/100 WBC (Bld)1.6 %0.2-2.0[facility] CantonEosinophils/100 WBC Auto (Bld)Ordered By: Nico Lino on 50-40-8235Tqntvpxyors/100 WBC (Bld)5.4 %0.9-7.0[facility] CantonErythrocyte distribution width Auto (RBC) [Ratio]Ordered By: Nico Lino on 68-92-4567Eipijmytrza distribution width (RBC) [Ratio]15.3 %High11.0-15.0 [facility] CantonEstimated glomerular filtration rate (GFR) non- AmericanOrdered By: Nico Lino on 51-27-1224KEY/1.73 sq M.predicted among non-blacks MDRD (S/P/Bld) [Vol rate/Area]38 mL/min/{1.73_m2}Low>=60 mL/min/1.73m 2FSelect Medical OhioHealth Rehabilitation Hospital - DublinGlobulin Calc (S) [Mass/Vol] Ordered By: Nico Lino on 13-60-0702Spzfzczl (S) [Mass/Vol]4.4 g/dLSelect Medical Specialty Hospital - CantonHematocrit Auto (Bld) [Volume fraction]Ordered By: Nico Lino on 57-87-2767Sfdheserik (Bld) [Volume fraction]36.7 %Low42.0-54.0 [facility] CantonHemoglobin [Mass/volume] in BloodOrdered By: Nico Lino on 59-21-4198Phvzxyeqdv (Bld) [Mass/Vol]12.2 g/dLLow14.0-18.0 [facility] CantonLaboratory - Chemistry and Chemistry - challengeOrdered By: Nico Lino on 22-62-2099Daeiflw [Mass/Vol]3.4 g/dL 3.4-5.0[facility] CantonALP [Catalytic activity/Vol]90 U/L46-116 [facility] CantonALT [Catalytic activity/Vol]25 U/L16-63 [facility] CantonAmylase [Catalytic activity/Vol]62 U/L25-115 [facility] CantonAST [Catalytic activity/Vol]18 U/L15-37 [facility] CantonBilirubin [Mass/Vol]0.3 mg/dL0.2-1.0[facility] CantonCalcium [Mass/Vol]9.0 mg/dL8.5-10.1FSelect Medical OhioHealth Rehabilitation Hospital - DublinChloride [Moles/Vol]107 mmol/Q98-164NigcqfsozSelect Medical Specialty Hospital - CantonCO2 [Moles/Vol]21.2 mmol/L21.0-32.0[facility] Creatinine [Mass/Vol]1.75 mg/dLHigh0.70-1.30[facility] Ferritin [Mass/Vol]174.0 ng/mL26.0-388.0[facility] GFR/1.73 sq M.predicted MDRD (S/P/Bld) [Vol rate/Area]46 mL/min/{1.73_m2}Low>=60 mL/min/1.73m 2FSelect Medical [facility]Health Rehabilitation Hospital - DublinGlucose [Mass/Vol]108 mg/dLHigh 74-106[facility] CantonLipase [Catalytic activity/Vol]46.0 U/L 16.0-77.0[facility] CantonPotassium [Moles/Vol]4.7 mmol/L3.5-5.1 [facility] CantonProtein [Mass/Vol]7.8 g/dL6.4-8.2FJoint Township District Memorial Hospitalodium [Moles/Vol]141 mmol/F127-225EhsytnzkgSelect Medical Specialty Hospital - CantonUrea nitrogen [Mass/Vol]34.0 mg/dLHigh7.0-18.0[facility] CantonUrea nitrogen/Creatinine [Mass ratio]19.4 mg/mgSelect Medical Specialty Hospital - CantonLaboratory - Hematology and Cell countsOrdered By: Nico Lino on 28-25-9398Kkxcbrff granulocytes/100 WBC (Bld)0.2 %0.0-0.5[facility] Medical CenterLeukocytes [#/volume] corrected for nucleated erythrocytes in Blood by Automated counOrdered By: Nico Lino on 61-31-4993KHG corrected for nucl RBC Auto (Bld) [#/Vol]10.0 10 3/uL4.0-11.0[facility] Lymphocytes Auto (Bld) [#/Vol]Ordered By: Nico Lino on 60-16-1515Sfpgkfgbkbz (Bld) [#/Vol]1.8 10 3/uL1.2-3.8[facility] CantonLymphocytes/100 WBC Auto (Bld)Ordered By: Nico Lino on 17-34-9329Pzznskyinrg/100 WBC (Bld) 17.5 %Low20.5-60.0[facility] Auto (RBC) [Entitic mass] Ordered By: Nico Lino on 12-96-6207ERL (RBC) [Entitic mass]30.0 pg25.9-34.0 [facility] CantonMCHC Auto (RBC) [Mass/Vol]Ordered By: Nico Lino on 23-54-5151XAEM (RBC) [Mass/Vol]33.2 g/dL29.9-35.2FSelect Medical OhioHealth Rehabilitation Hospital - DublinMCV Auto (RBC) [Entitic vol]Ordered By: Nico Lino on 87-35-1816WUB (RBC) [Entitic vol]90.4 fL80.0-94.0[facility] CantonMonocytes Auto (Bld) [#/Vol]Ordered By: Nico Lino on 03-24-2025 Monocytes (Bld) [#/Vol]0.8 10 3/uL0.3-0.8[facility] Monocytes/100 WBC Auto (Bld)Ordered By: Nico Lino on 24-65-3007Jidebleil/100 WBC (Bld)7.6 %1.7-12.0[facility] CantonNeutrophils Auto (Bld) [#/Vol]Ordered By: Nico Lino on 30-09-6539Aslpisxurgk (Bld) [#/Vol]6.8 10 3/uLHigh1.4-6.5FSelect Medical OhioHealth Rehabilitation Hospital - DublinNeutrophils/100 WBC Auto (Bld) Ordered By: Nico Lino on 34-15-3778Hlnhwyleplb/100 WBC (Bld)67.7 %43.0-75.0 [facility] CantonNo Panel InformationOrdered By: Nico Lino on 72-65-4304Uzormthyrib # (Auto)0.5 10 3/uL0.0-0.7FSelect Medical OhioHealth Rehabilitation Hospital - DublinFolate25.80 ng/mL8.60-58.90[facility] CantonImmature Granulocyte # (Auto)0.02 10 3/uL0.00-0.03[facility] Vitamin B12 Level>2000 pg/nFZctkdvbk420-1196YghjemmcfSelect Medical Specialty Hospital - Canton Comment on above:Performed at: Poll [place]whereBr[place] [id number] Director: Rocco Lopez PhD, Phone: [phone] mean volume Auto (Bld) [Entitic vol]Ordered By: Nico Lino on 63-71-9065Gfqrprta mean volume (Bld) [Entitic vol]11.2 fL9.5-13.5FSelect Medical [facility] Platelets Auto (Bld) [#/Vol]Ordered By: Nico Lino on 87-73-9664Vdojauduf (Bld) [#/Vol]398 10 3/yF293-876TyqmheawqSelect Medical Specialty Hospital - CantonRBC Auto (Bld) [#/Vol]Ordered By: Nico Lino on 44-48-7115JLD (Bld) [#/Vol]4.06 10 6/uLLow 4.70-6.10[facility] Centererum or plasma albumin/globulin mass ratioOrdered By: Nico Lino on 87-86-4116Sroitze/Globulin [Mass ratio]0.8 {ratio}[facility] Centererum or plasma anion gap determination Ordered By: Nico Lino on 08-71-3399Qsmkr gap [Moles/Vol]17.5 mmol/LFSelect Medical OhioHealth Rehabilitation Hospital - DublinGlucose mean value [Mass/volume] in Blood Estimated from glycated hemoglobinOrdered By: Nico Lino on 54-56-8672Afelmun glucose Estimated from glycated hemoglobin (Bld) [Mass/Vol]163 mg/dLSelect Medical Specialty Hospital - CantonHemoglobin A1c percentageOrdered By: Nico Mago on 03-18-2025 HbA1c (Bld) [Mass fraction]7.3 %High4.5-6.2FSelect Medical [facility] Comment on above:ADA RECOMMENDED LIMIT 4.0 - 6.0ADA THERAPEUTIC TARGET < 7.0ACTION SUGGESTED> 7.0CNOVon 57-45-8629EAFBVnwkbo Visit (RADTSA) SEGUN JOHNSON ([id number]) 1945 M Date Time Provider Department 12/10/24 2:45 PM Ronda BARTLETT During your visit today, we recorded the following information about you: Temperature Pulse Respiration Blood pressure 96.5 degrees 60/minute 18/minute 112/69 Weight 91.8 kg Angélica Acharya RN 12/17/2024 10:57 AM Signed AUA 10 MARGOT Israel G Phillip, MD 12/17/2024 10:57 AM Signed ) C. 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 Clinically doing well. PSA with minimal change manager the last 3 to 4 months. Has risen over the last 12 months still likely related to testosterone recovery after prior ADT. Recommend continued close observation. If continues to climb consider PSMA PET. Signed by: Ronda Bartlett MD cc: Nico Lino ([facility]) [address] [place] [address] Portions of the above note extracted and edited from previous visit as well as active information included in the EMR. Allergies As of Date: 12/10/2024 (No Known Allergies) Date Reviewed: 12/10/2024 Reviewed by: Angélica Acharya RN - Fully Assessed Reason for Visit: Prostate Cancer [590] Primary Visit Diagnosis:Cancer of prostate w/med recur risk (T2b-c or Asaf 7 or PSA 10-20) ([facility]) [C61] Order(s):PSA (OUTSIDE) [[id number]] Order #: [id number] PROSTATE-SPECIFIC ANTIGEN DIAGNOSTIC [SQPSA] Order #: [id number] FUTURE TESTOSTERONE, TOTAL BY IMMUNOASSAY (ADULT MALES, OR INDIVIDUALS ON TESTOSTERONE THERAPY) [SQTESTO] Order #: [id number] FUTURE Prescriptions as of 12/17/2024 - folic [...] by mouth. - glim (more content not included)...NormalThe [facility] (OUTSIDE)on 80-53-6893Mmcibzzuz ClinicCNOVon 16-96-5656JFXESenwse Visit (RADTSA) SEGUN JOHNSON ([id number]) 1945 M Date Time Provider Department 08/09/24 9:15 AM Ronda BARTLETT During your visit today, we recorded the following information about you: Temperature Pulse Respiration Blood pressure 97.4 degrees 70/minute 16/minute 105/62 Weight 96 kg Raudel Waddell LPN 08/09/2024 9:23 AM Signed AUA= 8 Ronda Bartlett MD 08/09/2024 9:31 AM Signed Radiation Oncology - Follow Up Note PATIENT NAME: Segun Johnson PATIENT DIAGNOSIS: Prostate adenocarcinoma, initial PSA 11.5, biopsy Taylor score 4 + 3 = 7 (grade [...] ASSESSMENT/PLAN: Prostate adenocarcinoma, initial PSA 11.5, biopsy Taylor score 4 + 3 = 7 (grade [...] Bartlett MD cc: Nico Lino (Mikhail) [address] [place] [address] Dr. Storey Portions of the above note extracted and edited from previous visit as well as active information included in the EMR. Referring Provider: Ronda BARTLETT [[id number]] Allergies As of Date: 08/09/2024 (No Known Allergies) Date Reviewed: 08/09/2024 Reviewed by: Raudel Waddell LPN - Fully Assessed Reason for Visit: Prostate Cancer [590] Primary Visit Diagnosis:Cancer of prostate w/med recur risk (T2b-c or Asaf 7 or PSA 10-20) ([facility]) [C61] Order(s):PSA (OUTSIDE) [5494477] Order #: [id number] PROSTATE-SPECIFIC ANTIGEN DIAGNOSTIC [SQPSA] Order #: [id number] FUTURE TESTOSTERONE, TOTAL BY IMMUNOASSAY (ADULT MALES, OR INDIVIDUALS ON TESTOSTERONE THERAPY) [SQTESTO] Order #: [id number] FUTURE Prescriptions as of 08/09/2024 - folic [...] mg tablet - l (more content not included)...NormalThe [facility] (OUTSIDE) on 79-52-7011Kkjfufhld ClinicUS Eye+Orbit - bilateralon 36-78-1448Hqlqjellt: Cataract both eyes (OU) Testing Indication: Performed for preop measurements in the determination of an intraocular lens (IOL) for both eyes (OU) Test Reliability: Good quality both eyes (OU) Interpretation: Good measurements for intraocular lens (IOL) calculation purposes. Calculation made for both eyes (OU).Critical access hospital Radiology Study observation (narrative)[facility] HealthcareGlucose mean value [Mass/volume] in Blood Estimated from glycated hemoglobinon 05-45-7214Hqdocry glucose Estimated from glycated hemoglobin (Bld) [Mass/Vol]163 mg/dLFirelands Regional Medical CenterLaboratory - Hematology and Cell countson 71-98-7742ViW4f (Bld) [Mass fraction]7.3 %High4.5-6.2FSelect Medical OhioHealth Rehabilitation Hospital - DublinComment on above:ADA RECOMMENDED LIMIT 4.0 - 6.0ADA THERAPEUTIC TARGET < 7.0ACTION SUGGESTED> 7.0Consultation Noteon 78-27-3692Nmpxtvqhevtv Note [id number]#1.00TIFFLancaster Municipal HospitalNo Panel Informationon 79-12-3936Lazfvwqe Specific Antigen Total0.61 ng/mL <=4.00[facility] CantonPSA (OUTSIDE)on 85-43-0339Yfotgiiqi ClinicGLYCOHEMOGLOBIN A1Con 92-41-0235IRG RECOMMENDATIONSEE [facility] HospitalComment on above:Result Comment: ADA RECOMMENDED LIMIT 4.0 - 6.0 ADA THERAPEUTIC TARGET < 7.0 ACTION SUGGESTED > 7.0Performed By: #### A1C #### [facility] [address] [place] [address] Dr. Radha BrownGlucose [Mass/Vol]186 mg/dLNoShelby Memorial HospitalComment on above:Performed By: #### A1C #### [facility] [address] [place] [address] Dr. Radha BrownHbA1c (Bld) [Mass fraction]8.1 %Critically high4.5-6.2The [facility] GeneralComment on above:Performed By: #### A1C #### [facility] [address] [address] [address] Radha Strange AUTO DIFFon 59-03-4786HLUK #0.1 103/ulNormal0.0-0.1The [facility] GeneralComment on above:Performed By: #### CBC #### [facility] [address] [place] [address] Dr. Radha BrownBasophils/100 WBC (Bld)0.9 %Normal0.2-2.0The [facility] Comment on above:Performed By: #### CBC #### [facility] [address] [address] [address] Radha Martinez #0.5 103/ulNormal0.0-0.7The [facility] GeneralComment on above: Performed By: #### CBC #### [facility] [address] [place] [address] Dr. Radha Floresosinophils/100 WBC (Bld)5.5 %Normal0.9-7.0The [facility] Comment on above:Performed By: #### CBC #### [facility] [address] [place] [address] Dr. Radha Floresrythrocyte distribution width (RBC) [Ratio]15.0 %Xclrvn22.0-15.0 [facility]rbana HospitalComment on above:Performed By: #### CBC #### [facility] [address] [place] [address] Dr. Radha BrownHematocrit (Bld) [Volume fraction]35.6 %Critically low42.0-54.0 The [facility] GeneralComment on above:Performed By: #### CBC #### [facility] [address] [place] [address] Dr. Radha BrownHemoglobin (Bld) [Mass/Vol]11.8 g/dLCritically low14.0-18.0[facility]rbana HospitalComment on above:Performed By: #### CBC #### [facility] [address] [place] [address] Dr. Radha Sanchez #0.05 10e3/ulCritically high0.00-0.03The [facility] Comment on above:Performed By: #### CBC #### [facility] [address] [place] [address] Dr. Radha Sanchez %0.5 %Normal0.0-0.5The [facility] GeneralComment on above: Performed By: #### CBC #### [facility] [address] [place] [address] Dr. Radha Millard #1.8 103/ulNormal1.2-3.8The [facility] GeneralComment on above:Performed By: #### CBC #### [facility] [address] [place] [address] Dr. Radha Hullmphocytes/100 WBC (Bld)19.3 %Critically low20.5-60.0The [facility] GeneralComment on above:Performed By: #### CBC #### [facility] [address] [place] [address] Dr. Radha Rice DIFF REQNONormalThe [facility] GeneralComment on above: Performed By: #### CBC #### [facility] [address] [place] [address] Dr. Radha Saravia (RBC) [Entitic mass]29.2 qbQdusqs63.9-34.0The [facility] GeneralComment on above:Performed By: #### CBC #### [facility] [address] [place] [address] Dr. Radha Saravia (RBC) [Mass/Vol]33.1 g/uFMmyhmz76.9-35.2The [facility] GeneralComment on above:Performed By: #### CBC #### [facility] [address] [place] [address] Dr. Radha Saravia (RBC) [Entitic vol]88.1 uFXbweno60.0-94.0The [facility] GeneralComment on above:Performed By: #### CBC #### [facility] [address] [place] [address] Dr. Radha Monte #0.6 103/ulNormal0.3-0.8The [facility] GeneralComment on above:Performed By: #### CBC #### [facility] [address] [place] [address] Dr. Radha Anguloocytes/100 WBC (Bld)6.4 %Normal1.7-12.0The [facility] on above:Performed By: #### CBC #### [facility] [address] [place] [address] Dr. Radha Leigh #6.4 103/ulNormal1.4-6.5The [facility] GeneralComment on above:Performed By: #### CBC #### [facility] [address] [place] [address] Dr. Radha Salterutrophils/100 WBC (Bld)67.4 %Myftyl69.0-75.0The [facility] on above:Performed By: #### CBC #### [facility] [address] [place] [address] Dr. Radha BrownPlatelet mean volume (Bld) [Entitic vol]9.2 fLCritically low 9.5-13.5The [facility] GeneralComment on above:Performed By: #### CBC #### [facility] [address] [place] [address] Dr. Radha BrownPLT232 103/xyRwasfk586-823Xce [facility] on above: Performed By: #### CBC #### [facility] [address] [place] [address] Dr. Radha BrownRBC4.04 106/ulCritically low4.70-6.10The [facility] GeneralComment on above:Performed By: #### CBC #### [facility] [address] [place] [address] Dr. Radha BrownWBC9.5 103/ulNormal4.0-11.0The [facility] on above: Performed By: #### CBC #### [facility] [address] [place] [address] Dr. Radha BrownFERPorter 53-08-9237Putkesjj [Mass/Vol]164.0 ng/mLNormal 26.0-388.0The [facility] GeneralComment on above:Performed By: #### PSAD, FOL, FERR, FETIBC #### [facility] [address] [place] [address] Dr. Radha Bloom 70-35-2172LAEQOP5.60 ng/mLCritically low8.60-58.90The [facility] on above:Performed By: #### PSAD, FOL, FERR, FETIBC #### [facility] [address] [address] [address] Radha BrownGLYCOHEMOGLOBIN A1Con 13-31-9092OUI RECOMMENDATIONSEE BELOWNormSamaritan HospitalComment on above:Result Comment: ADA RECOMMENDED LIMIT 4.0 - 6.0 ADA THERAPEUTIC TARGET < 7.0 ACTION SUGGESTED > 7.0Performed By: #### A1C #### [facility] [address] [address] [address] Radha BrownGlucose [Mass/Vol]134 mg/dLNormAdams County HospitalComment on above:Performed By: #### A1C #### [facility] [address] [address] [address] Radha BrownHbA1c (Bld) [Mass fraction]6.3 %Critically high4.5-6.2The [facility] GeneralComment on above:Performed By: #### A1C #### [facility] [address] [place] [address] Dr. Radha Rey AND TIBCon 07-29-2022% TIJQLRSPHP65.1 %NormalThe [facility] GeneralComment on above:Performed By: #### PSAD, FOL, FERR, FETIBC #### [facility] [address] [address] [address] Radha Rey [Mass/Vol]78.0 ug/tMUhprud09.0-175.0[facility] Comment on above:Performed By: #### PSAD, FOL, FERR, FETIBC #### [facility] [address] [place] [address] Dr. Radha BrownTIBC VDLWXH710.0 ug/xWXdtyzn471.0-450.0The [facility] Comment on above:Performed By: #### PSAD, FOL, FERR, FETIBC #### [facility] [address] [place] [address] Dr. Radha BrownLIPID PROFILEon 53-07-3181MJSW-HDL RATIO NORMSEE BELOWPremier Health Atrium Medical CenterComment on above:Result Comment: 3.3 - 4.4 LOW RISK 4.4 - 7.1 AVERAGE RISK 7.1 - 11.0 MODERATE RISK >11.0 HIGH RISKPerformed By: #### PSAD, FOL, FERR, FETIBC #### [facility] [address] [address] [address] Radha BrownCholesterol [Mass/Vol]137 mg/dLNormal<=200[facility] Comment on above:Performed By: #### PSAD, FOL, FERR, FETIBC #### [facility] [address] [address] [address] Radha BrownCholesterol in HDL [Mass/Vol]37 mg/dLCritically dhu76-52BtkMercy Health Urbana HospitalComment on above:Performed By: #### PSAD, FOL, FERR, FETIBC #### [facility] [address] [place] [address] Dr. Radha BrownCholesterol in LDL [Mass/Vol]67.0 mg/dLNoShelby Memorial HospitalComment on above:Performed By: #### PSAD, FOL, FERR, FETIBC #### [facility] [address] [place] [address] Dr. Radha Finneganestermarga.total/Cholesterol in HDL [Mass ratio]3.7 {ratio} NormalMercy Health Urbana HospitalComment on above:Performed By: #### PSAD, FOL, FERR, FETIBC #### [facility] [address] [place] [address] Dr. Radha Mendiola NORMAL> or = 60 mg/dl - LOW CARDIOVASCULAR RISK <40 mg/dl - HIGH CARDIOVASCULAR RISKPremier Health Atrium Medical CenterComment on above:Performed By: #### PSAD, FOL, FERR, FETIBC #### [facility] [address] [place] [address] Dr. Radha BrownLDL CALC NORMALSEE BELOWPremier Health Atrium Medical CenterComment on above:Result Comment: <100 mg/dl OPTIMAL 100 - 129 mg/dl NEAR OR ABOVE OPTIMAL 130 - 159 mg/dl BORDERLINE HIGH 160 - 189 mg/dl HIGH >190 mg/dl VERY HIGH Performed By: #### PSAD, FOL, FERR, FETIBC #### [facility] [address] [address] [address] Radha BrownTriglyceride [Mass/Vol]165 mg/dLCritically high<=150The [facility] GeneralComment on above:Performed By: #### PSAD, FOL, FERR, FETIBC #### [facility] [address] [place] [address] Dr. Radha BrownVLDL CALC33.0 mg/dLNormalThe [facility] GeneralComment on above: Performed By: #### PSAD, FOL, FERR, FETIBC #### [facility] [address] [place] [address] Dr. Radha StevenALBUMIN, RAND URon 18-82-2362eIQK<1.3Normal<=30.0The [facility] GeneralComment on above:Performed By: #### MALBR #### [facility] [address] [place] [address] Dr. Radha BrownPROF CHEM 8 (BAS METB)on 74-24-9896Iysgs gap [Moles/Vol]9.1 mmol/LNormalThe [facility] GeneralComment on above:Performed By: #### PSAD, FOL, FERR, FETIBC #### [facility] [address] [place] [address] Dr. Radha BrownCalcium [Mass/Vol]8.6 mg/dLNormal8.5-10.1[facility] Comment on above:Performed By: #### PSAD, FOL, FERR, FETIBC #### [facility] [address] [place] [address] Dr. Radha BrownChloride [Moles/Vol]106 mmol/VWnihxl91-192Cbh [facility] Comment on above:Performed By: #### PSAD, FOL, FERR, FETIBC #### [facility] [address] [place] [address] Dr. Radha BrownCO2 [Moles/Vol]27.1 mmol/RMrsuzf61.0-32.0The [facility] Comment on above:Performed By: #### PSAD, FOL, FERR, FETIBC #### [facility] [address] [address] [address] Radha BrownCreatinine [Mass/Vol]1.19 mg/dLNormal0.70-1.30The [facility] GeneralComment on above:Performed By: #### PSAD, FOL, FERR, FETIBC #### [facility] [address] [place] [address] Dr. Garcia ChangEGFR-AF TANZANIAN>60Normal>=60The [facility] GeneralComment on above:Performed By: #### PSAD, FOL, FERR, FETIBC #### [facility] [address] [place] [address] Dr. Radha FloresGFR-NON AF QGSWNQSJ97 mL/min/1.42v1Fcqckwdcka low>=60The [facility] GeneralComment on above:Performed By: #### PSAD, FOL, FERR, FETIBC #### [facility] [address] [place] [address] Dr. Radha BrownGlucose [Mass/Vol]137 mg/dLCritically kqfe52-860Bwq [facility] GeneralComment on above:Performed By: #### PSAD, FOL, FERR, FETIBC #### [facility] [address] [place] [address] Dr. Radha BrownPotassium [Moles/Vol]4.2 mmol/LNormal3.5-5.1[facility] Comment on above:Performed By: #### PSAD, FOL, FERR, FETIBC #### [facility] [address] [place] [address] Dr. Radha BrownSodium [Moles/Vol]138 mmol/ISnozhh798-147Zqj [facility] Comment on above:Performed By: #### PSAD, FOL, FERR, FETIBC #### [facility] [address] [place] [address] Dr. Radha BrownUrea nitrogen [Mass/Vol]22.0 mg/dLCritically high7.0-18.0The [facility] GeneralComment on above:Performed By: #### PSAD, FOL, FERR, FETIBC #### [facility] [address] [address] [address] Radha BrownUrea nitrogen/Creatinine [Mass ratio]18.5 mg/mgNoShelby Memorial HospitalComment on above:Performed By: #### PSAD, FOL, FERR, FETIBC #### [facility] [address] [address] [address] Radha BrownGLYCOHEMOGLOBIN A1Con 90-08-4363BNM RECOMMENDATIONSEE BELOWNormal The [facility] GeneralComment on above:Result Comment: ADA RECOMMENDED LIMIT 4.0 - 6.0 ADA THERAPEUTIC TARGET < 7.0 ACTION SUGGESTED > 7.0Performed By: #### A1C #### [facility] [address] [address] [address] Radha BrownGlucose [Mass/Vol]154 mg/dLNoShelby Memorial HospitalComment on above:Performed By: #### A1C #### [facility] [address] [address] [address] Radha BrownHbA1c (Bld) [Mass fraction]7.0 %Critically high4.5-6.2The [facility] GeneralComment on above:Performed By: #### A1C #### [facility] [address] [address] [address] Radha Brown Vital Signs Date TimeVital SignValuePerforming CwwvudddfIbdjvvzu69-06-9380 09:50-0400 Diastolic blood pnqbgimy32 mm[Hg][employer] DO Work Phone: [facility]10-22-2025 09:50-0400 Heart rate91 /minBenjamin Ball DO Work Phone: [facility]10-22-2025 09:50-0400 Respiratory rate16 /minBenjamin Ball DO Work Phone: [phone]10-22-2025 09:50-0400 SaO2% (BldA) [Mass fraction]96 %[employer] DO Work Phone: [phone]10-22-2025 09:50-0400 Systolic blood mm[Hg][employer] DO Work Phone: [phone])[address] [place], [place] 8047110-22-2025 07:31-0400 Body .8 cmBenjamin Ball DO Work Phone: [phone])[address] [place], [place] 8047110-22-2025 07:31-0400 Body yckvrs08.18 kgBenjamin Ball DO Work Phone: [phone])[address] [place], [place] 8047110-06-2025 14:52-0400 Body bpdhoq504.26 cmBenjamin Ball DO Work Phone: [phone])[address] [place], [place] 8047110-06-2025 14:52-0400 Body mass index (BMI) [Ratio]27.6 kg/d3Zqcqjfbj Ball DO Work Phone: [phone])[address] [place], [place] 8047110-06-2025 14:52-0400 Body sumicp79.99 kgBenjamin Ball DO Work Phone: [phone])[address] [place], [place] 8047110-06-2025 14:52-0400 Diastolic blood gaxpfafx19 mm[Hg]Nico Ball DO Work Phone: [phone] [place], [place] 8047110-06-2025 14:52-0400 Heart rate67 /minBenjamin Ball DO Work Phone: [phone])[address] [place], [place] 8047110-06-2025 14:52-0400 Respiratory rate12 /minBenjamin Ball DO Work Phone: [phone])[address] [place], [place] 8047110-06-2025 14:52-0400 Systolic blood swpshiip736 mm[Hg]Nico Ball DO Work Phone: [phone])[address] [place], [place] 8047109-16-2025 13:35-0400 Body hfoayu475.26 cmBenjamin Ball DO Work Phone: [phone])[address] [place], [place] 8047109-16-2025 13:35-0400 Body mass index (BMI) [Ratio]27.5 kg/k9Qaawjhnq Ball DO Work Phone: [phone])[address] [place], [place] 8047109-16-2025 13:35-0400 Body nijqfh72.53 kgBenjamin Ball DO Work Phone: [phone] [place], [place] 7707509-16-2025 13:35-0400 Diastolic blood hsiwcstw13 mm[Hg]Nico Ball DO Work Phone: [phone])[facility] [place], [place] 7707509-16-2025 13:35-0400 Heart rate71 /minBenjamin Ball DO Work Phone: [phone])[address] [place], [place] 8047109-16-2025 13:35-0400 Respiratory rate12 /minBenjamin Ball DO Work Phone: [phone])[address] [place], [place] 8047109-16-2025 13:35-0400 Systolic blood sjsupumt635 mm[Hg]Nico Ball DO Work Phone: [phone])[address] [place], [place] 8047109-10-2025 13:50-0400 Body bntacr259.26 cmBenjamin Ball DO Work Phone: [phone])[address] [place], [place] 8047109-10-2025 13:50-0400 Body mass index (BMI) [Ratio]28 kg/l7Velcplxk Ball DO Work Phone: 1419)[address] [place], [place] 8047109-10-2025 13:50-0400 Body mmyicp30.95 kgBenjamin Ball DO Work Phone: [phone] [place], [place] 8047109-10-2025 13:50-0400 Diastolic blood nosqksmp58 mm[Hg]Nico Ball DO Work Phone: [phone] [place], [place] 8047109-10-2025 13:50-0400 Heart rate60 /minBenjamin Ball DO Work Phone: 1419)[facility] [place], [place] 7707509-10-2025 13:50-0400 Respiratory rate12 /minBenjamin Ball DO Work Phone: [phone])[address] [place], [place] 8047109-10-2025 13:50-0400 Systolic blood jbecxnay909 mm[Hg]Nico Ball DO Work Phone: 1419)[address] [place], [place] 8047107-30-2025 13:34-0400 Body .26 cmBenjamin Ball DO Work Phone: [phone] [place], [place] 7707507-30-2025 13:34-0400 Body mass index (BMI) [Ratio]27.6 kg/a4Vxotkgdj Ball DO Work Phone: 1419)[facility] [place], [place] 7707507-30-2025 13:34-0400 Body .93 kgBenjamin Ball DO Work Phone: 1419)[address] [place], [place] 8047107-30-2025 13:34-0400 Diastolic blood dundzakt48 mm[Hg]Nico Ball DO Work Phone: 1419)[address] [place], [place] 8047107-30-2025 13:34-0400 Heart rate88 /minBenjamin Ball DO Work Phone: 1(873)[address] [place], [place] 8047107-30-2025 13:34-0400 Respiratory rate12 /minBenjamin Ball DO Work Phone: [phone])[address] [place], [place] 8047107-30-2025 13:34-0400 Systolic blood ptxpvder519 mm[Hg]Nico Ball DO Work Phone: 1419)[address] [place], [place] 8047107-07-2025 11:15-0400 Body .26 cmBenjamin Ball DO Work Phone: [phone])[address] [place], [place] 8047107-07-2025 11:15-0400 Body mass index (BMI) [Ratio]28 kg/b3Rdyivdsw Ball DO Work Phone: [phone])[address] [place], [place] 8047107-07-2025 11:15-0400 Body neaarc70.95 kgBenjamin Ball DO Work Phone: 1419)[address] [place], [place] 8047107-07-2025 11:15-0400 Diastolic blood xzldodtw15 mm[Hg]Nico Ball DO Work Phone: 1419)[address] [place], [place] 8047107-07-2025 11:15-0400 Heart rate58 /minBenjamin Ball DO Work Phone: 1419)[address] [place], [place] 8047107-07-2025 11:15-0400 Respiratory rate18 /minBenjamin Ball DO Work Phone: [phone]07-07-2025 11:15-0400 Systolic blood uuohmrxl67 mm[Hg]Nico Ball DO Work Phone: [facility]03-25-2025 14:34-0400 Body mass index (BMI) [Ratio]29.46 kg/m2ANATOLY Bartlett MD Work Phone: [facility]03-25-2025 14:34-0400Body temperature 96.49 [degF]ANATOLY Bartlett MD Work Phone: [facility]03-25-2025 14:34-0400Body lluoab78.8 kgANATOLY Bartlett MD Work Phone: [facility]03-25-2025 14:34-0400Diastolic blood vzjvykzf98 mm[Hg]ANATOLY Bartlett MD Work Phone: [facility]03-25-2025 14:34-0400Heart rate60 /min ANATOLY Bartlett MD Work Phone: [facility]03-25-2025 14:34-0400Respiratory rate 18 /MarshallANATOLY Bartlett MD Work Phone: [facility]03-25-2025 14:34-8798PgV1% (BldA) [Mass fraction]97 %ANATOLY Bartlett MD Work Phone: [facility]03-25-2025 14:34-0400Systolic blood wigpccox860 mm[Hg]ANATOLY Bartlett MD Work Phone: [facility]03-06-2025 09:57-0500Body gcosjv479.26 cmSelect [facility]03-06-2025 09:57-0500Body mass index (BMI) [Ratio]29.9 kg/q9HxclvvwsiSelect [facility]03-06-2025 09:57-0500Body ieupbe74.13 kgSelect Medical Specialty [facility]03-06-2025 09:57-0500Diastolic blood mm[Hg][facility]03-06-2025 09:57-0500 Heart rate65 /[facility]03-06-2025 09:57-0500 Respiratory rate14 /[facility]03-06-2025 09:57-0500 SaO2% (BldA) [Mass fraction]95 %[facility]03-06-2025 09:57-0500Systolic blood nuyvmtes879 mm[Hg][facility] 08-09-2024 09:14-0500Body mass index (BMI) [Ratio]30.81 kg/m2ANATOLY Bartlett MD Work Phone: [facility]11-22-2024 09:14-0500Body temperature 97.39 [degF]ANATOLY Bartlett MD Work Phone: [facility]11-22-2024 09:14-0500Body rhdyms30 kg ANATOLY Bartlett MD Work Phone: [facility]11-22-2024 09:14-0500Diastolic blood xhopbtyd19 mm[Hg]ANATOLY Bartlett MD Work Phone: [facility]11-22-2024 09:14-0500Heart rate70 /min ANATOLY Bartlett MD Work Phone: [facility]11-22-2024 09:14-0500Respiratory rate 16 /MarshallANATOLY Bartlett MD Work Phone: [facility] [facility]11-22-2024 09:14-6992BdT2% (BldA) [Mass fraction]97 %ANATOLY Bartlett MD Work Phone: [facility]11-22-2024 09:14-0500Systolic blood mgeuwzqg579 mm[Hg]ANATOLY Bartlett MD Work Phone: [facility]11-12-2024 11:20-0500Body cxzorg400.26 [facility]2024 11:20-0500Body mass index (BMI) [Ratio]31.3 kg/f1GlmygpnumSelect Medical Specialty [facility]11-12-2024 11:20-0500Body ivkaaj15.27 kgSelect [facility]11-12-2024 11:20-0500Diastolic blood xzapcacc67 mm[Hg][facility]11-12-2024 11:20-0500 Heart rate62 /[facility]11-12-2024 11:20-0500 Respiratory rate12 /[facility]11-12-2024 11:20-0500 Systolic blood qygaqlkb965 mm[Hg][facility]07-10-2024 11:06-0400Body vdyciq690.26 cmSelect [facility]07-10-2024 11:06-0400Body mass index (BMI) [Ratio]32.3 kg/d6VxkvqyjdzSelect Medical [facility]07-10-2024 11:06-0400Body xxatkp07.33 kgSelect [facility] 03-27-2024 11:06-0400Diastolic blood izdriohn85 mm[Hg][facility]07-10-2024 11:06-0400Heart rate72 /[facility] 03-27-2024 11:06-0400Respiratory rate20 /[facility] 03-27-2024 11:06-0400Systolic blood llwdycqn51 mm[Hg][facility]05-30-2024 09:44-0400Body mass index (BMI) [Ratio]31.83 kg/m2ANATOLY Bartlett MD Work Phone: [facility]05-30-2024 09:44-0400Body temperature 97.3 [degF]ANATOLY Bartlett MD Work Phone: [facility]05-30-2024 09:44-0400Body atvdsm82.2 kgANATOLY Bartlett MD Work Phone: [facility]05-30-2024 09:44-0400Diastolic blood qaukyovh35 mm[Hg]ANATOLY Bartlett MD Work Phone: [facility]05-30-2024 09:44-0400Heart rate66 /min ANATOLY Bartlett MD Work Phone: [facility]05-30-2024 09:44-0400Respiratory rate 18 /MarshallANATOLY Bartlett MD Work Phone: [facility]05-30-2024 09:44-0400Systolic blood itnurnon902 mm[Hg]ANATOLY Bartlett MD Work Phone: [facility]11-30-2023 10:03-0500Body temperature 96.91 [degF]ANATOLY Bartlett MD Work Phone: [facility]11-30-2023 10:03-0500Body ygwbdh913.78 kgANATOLY Bartlett MD Work Phone: [facility]11-30-2023 10:03-0500Diastolic blood mfboxdre18 mm[Hg]ANATOLY Bartlett MD Work Phone: [facility]11-30-2023 10:03-0500Heart rate62 /min ANATOLY Bartlett MD Work Phone: [facility]11-30-2023 10:03-0500Respiratory rate 16 /MarshallANATOLY Bartlett MD Work Phone: [facility]11-30-2023 10:03-9475YvR2% (BldA) [Mass fraction]95 %ANATOLY Bartlett MD Work Phone: [facility]11-30-2023 10:03-0500Systolic blood kyifobzw063 mm[Hg]ANATOLY Bartlett MD Work Phone: [facility]11-08-2023 11:00-0500Body .26 cmBenseng [employer] Other [facility] Other 11-08-2023 11:00-0500Body mass index (BMI) [Ratio] 33.37 kg/k3Wsjmlmaa Ball Other [employer] Other 11-08-2023 11:00-0500Body jcydgc836.51 kgBenyeisonmin Ball Other [employer] Other 11-08-2023 11:00-0500Diastolic blood gtjnqelj03 mm[Hg] Nico Ball Other [employer] Other 11-08-2023 11:00-0500Respiratory rate12 /minBenjamin Ball Other [employer] Other 11-08-2023 11:00-0500Systolic blood ctoqcyru741 mm[Hg] Nico Ball Other [employer] Other 03-14-2023 14:30-0400Body .26 cmBenjamin Ball Other [employer] Other 03-14-2023 14:30-0400Body mass index (BMI) [Ratio] 34.58 kg/z8Bmkbxdxc Ball Other [employer] Other 03-14-2023 14:30-0400Body lfftek353.23 kgBenjamin Ball Other [employer] Other 03-14-2023 14:30-0400Diastolic blood mfgahlyl21 mm[Hg] Nico Ball Other [employer] Other 03-14-2023 14:30-0400Respiratory rate12 /minBenjamin Ball Other [employer] Other 03-14-2023 14:30-0400Systolic blood oivsuccs463 mm[Hg] Nico Ball Other [employer] Other 02-14-2023 11:22-0500Blood Pressure LocationJENNIFER DIALLO [facility]02-14-2023 11:22-0500Diastolic blood jwoxqhko83 mm[Hg]HENRIQUE LANDRUM [facility]02-14-2023 11:22-0500Heart rate68 /minJENNIFER DIALLO [facility]02-14-2023 11:22-0500Respiratory rate16 /minJENNIFER DIALLO [facility]02-14-2023 11:22-0500Systolic blood gsqzybwb006 mm[Hg]HENRIQUE LANDRUM [facility]12-01-2022 10:22-0500Body gvhdfinwdkv93.21 [degF]ANATOLY Bartlett MD Work Phone: [facility]12-01-2022 10:22-0500Body .23 kgNA Adolfo WILSON Work Phone: [facility]12-01-2022 10:22-0500Diastolic blood mm[Hg]ANATOLY Bartlett MD Work Phone: [facility]12-01-2022 10:22-0500Heart rate78 /min ANATOLY Bartlett MD Work Phone: [facility]12-01-2022 10:22-0500Respiratory rate 18 /MarshallANATOLY Bartlett MD Work Phone: [facility]12-01-2022 10:22-3170ZaY4% (BldA) [Mass fraction]98 %ANATOLY Bartlett MD Work Phone: [facility]12-01-2022 10:22-0500Systolic blood tzuynmbm900 mm[Hg]ANATOLY Bartlett MD Work Phone: [facility]06-02-2022 09:51-0400Body temperature 96.1 [degF]ANATOLY Bartlett MD Work Phone: [facility]06-02-2022 09:51-0400Body fatqid303.7 kgANATOLY Bartlett MD Work Phone: [facility]06-02-2022 09:51-0400Diastolic blood tmejnkij84 mm[Hg]ANATOLY Bartlett MD Work Phone: [facility]06-02-2022 09:51-0400Heart rate66 /min ANATOLY Bartlett MD Work Phone: [facility]06-02-2022 09:51-0400Respiratory rate 16 /MarshallANATOLY Bartlett MD Work Phone: [facility]06-02-2022 09:51-5868JmA0% (BldA) [Mass fraction]97 %ANATOLY Bartlett MD Work Phone: [facility]06-02-2022 09:51-0400Systolic blood spqehkez388 mm[Hg]ANATOLY Bartlett MD Work Phone: [facility] Encounters Encounter DateEncounter TypeCare ProviderFacilityStart: 07-09-2025 End: 44-56-1408nwklhvoqjxFhqnify J DittyFacility:[facility] Centertart: 96-55-0817Sps-patient / Non-visitTevin Peralta MD-[facility] Work Phone: Start: 06-23-2025 End: 14-61-9409zdsxshryxvKyrfftpn Ball DO Work Phone: [facility] Work Phone: Start: 06-23-2025 End: 23-08-1366Pxflsfl encounter procedureBenseng Ball DO-[facility] Work Phone: Start: 06-17-2025 End: 53-94-6885fhawuxtktzYYSSLCIS E BALLFacility:[facility] Hospitaltart: 24-19-4947Lpp-patient / Non-visitCatherine Mathieu [employer]-[facility] Work Phone: Start: 09-26-6077Exj-patient / Non-visitBrigid Avila MD-[facility] Work Phone: Start: 06-03-2025 End: 24-24-6442xsikxkgyupDjalqwba Ball DO Work Phone: [facility] Work Phone: Start: 06-03-2025 End: 67-32-2729Hzujjsc encounter procedureBenjamin Ball DO-[facility] Work Phone: Start: 40-97-2328Rzk-patient / Non-visitBenjamin Ball DO-[facility] Work Phone: Start: 34-12-3773Bqh-patient / Non-visitCatherine Mathieu [facility] Work Phone: Start: 05-28-2025 End: 38-66-6044etzvttukbzQvikebpe Ball DO Work Phone: [facility] Work Phone: Start: 05-28-2025 End: 93-96-5950Tfhlexx encounter procedureBenjamin Ball DO-[facility] Work Phone: Start: 04-16-2025 End: 87-21-5856cwvmvnnvleWvxvhtkd Ball DO Work Phone: [facility] Work Phone: Start: 04-16-2025 End: 00-39-4273Qddkkew encounter procedureBenjamin Ball DO-[facility] Work Phone: Start: 03-24-2025 End: 13-09-9565wcwksklkywIjbjbvtm Ball DO Work Phone: [facility] Work Phone: Start: 03-24-2025 End: 65-09-6692Gllkbux encounter procedureNico Mago KOOOhioHealth [facility] Work Phone: Start: 11-76-8364Pnw-patient / Non-visitBeclaudiazonia Lino DO-[facility] Work Phone: Start: 12-10-2024 End: 62-15-3806exesmijofaNUKEOQMG E MAGOFacility:[facility] Hospitaltart: 12-10-2024 End: 77-18-1334Kkiylb outpatient visit 15 minutesG Dimitry Bartlett MD Work Phone: Radiation OncologyComment on above:Cancer of prostate w/med recur risk (T2b-c or Taylor 7 or PSA 10-20) (HCC) (Primary Dx)Start: 11-21-2024 End: 37-19-5694nizleodhyjBwdezssblAshtabula General Hospital Work Phone: Start: 11-21-2024 End: 89-23-8546Cuewiur encounter procedureHighsmith-[facility] Physician GroupOhioHealth [facility] Work Phone: Start: 08-09-2024 End: 37-28-1450mjvlmkxqcbO DIMITRY RASCONacility:[facility] Start: 08-09-2024 End: 47-59-4683Rbjrcdl encounter procedureRonda Bartlett MD Work Phone: Radiation OncologyComment on above:Cancer of prostate w/med recur risk (T2b-c or Taylor 7 or PSA 10-20) (HCC) (Primary Dx)Start: 07-30-2024 End: 15-06-5328dtmdscukljSczuryklpAshtabula General Hospital Work Phone: Start: 07-30-2024 End: 12-75-9253Ncyhkaz encounter procedureHighsmith-Rainey Specialty Hospital Physician GroupOhioHealth [facility] Work Phone: Start: 17-93-0167Rkbkmyn encounter procedureOhioHealth Nelsonville Health Centertart: 66-38-0367Zdu-patient / Non-visitKristofer Physician GroupOhioHealth [facility] Work Phone: Start: 07-03-2024 End: 13-36-6846IydjmpOoyuvkzd D Zahler DO Work Phone: noms NB OPHTComment on above:Age-related nuclear cataract of both eyesStart: 07-02-2024 End: 36-63-9984OusvphFmjqeavy Kinsey Zahler DO Work Phone: noms NB OPHTComment on above:Age-related nuclear cataract of both eyes (Primary Dx)Start: 05-14-2024 End: 89-24-3496Xudore flowsheetJoarturo Euceda Zahler DO Work Phone: noms NB OPHTStart: 05-14-2024 End: 60-75-8942Gkeyks flowsheetJoarturo Euceda Zahler DO Work Phone: noms NB OPHTStart: 05-14-2024 End: 87-47-7627iscmzxbebhUBYBYKHB D ZAHLERNot AvailableStart: 03-27-2024 End: 15-39-2799qrzubcmbcqRhupmmcsuAshtabula General Hospital Work Phone: Start: 03-27-2024 End: 05-92-1980Xwedhas encounter procedureHighsmith-[facility] Physician [facility] Work Phone: Start: 09-07-9954Dnv-patient / Non-visitHighsmith-[facility]ician [facility] Work Phone: Start: 03-05-2024 End: 85-15-1823soleuqwlrjDINWNIFC E PERRYFacility:EU BellevueStart: 03-05-2024 End: 82-92-8196Xcwdhkz encounter procedureJENNIFER E DIALLO [facility] start: 02-15-2024 End: 66-92-8090Vwwdtyt encounter procedureG Dimitry Bartlett MD Work Phone: Radiation OncologyComment on above:Cancer of prostate w/med recur risk (T2b-c or Asaf 7 or PSA 10-20) (HCC) (Primary Dx)Start: 70-07-7174Jgy-patient / Non-visitFirsentara princess anne hospital Physician [facility]-[place] [facility]-Work Work Phone: Start: 08-17-2023 End: 00-47-0317Qibpqbk encounter procedureG Dimitry Bartlett MD Work Phone: Radiation OncologyComment on above:Malignant neoplasm of prostate (HCC) (Primary Dx)Start: 07-26-2023 End: 79-82-1181kfhrknevopRgzwdxeb Mago Other [employer] Other Start: 42-76-9101Iqunrnp encounter procedureBenseng HaysG [facility]ago Medical ClinicStart: 07-17-2023 End: 31-54-5492bbpaodauxvNxidwlcm Ball Other [employer] Other Start: 31-01-1646Nykfdbujv encounterBenjazonia HaysG [facility] Medical ClinicStart: 04-04-2023 End: 05-23-2193xehklxwxxaWloecwvw Ball Other [employer] Other Start: 98-93-3204Bqsvvtblj encounterBenjazonia HaysG [facility] Medical ClinicStart: 01-05-2023 End: 86-38-4595twswgsjafsUN NICO LINOFacility:P1Vojwf: 11-29-2022 End: 45-40-8163nwxmavrdbmCV NICO MAGOFanKave Other Start: 56-92-3695Azuljh outpatient visit 25 minutes Nico SaúlG [facility]ago Medical ClinicStart: 11-01-2022 End: 52-18-7714Wbrkdmh encounter procedureHENRIQUE LANDRUM [facility] start: 08-18-2022 End: 01-46-5502lemcqcbckxNmztt Martinez APRN.CNP Work Phone: Hematology/OncologyComment on above:Prostate cancer (HCC)Start: 08-18-2022 End: 77-89-8543Npdllmu encounter procedureIrlanda Castro APRN.CNP Work Phone: SANDUSKYComment on above:Prostate cancer (HCC) (Primary Dx)Start: 07-29-2022 End: 30-65-3373uzddsnmhkhJZSerene LINOFacility:J5Yopji: 42-93-8840Gqsox health examinationBeclaudiazonia Lino Other [employer] Other Start: 02-17-2022 End: 47-99-0201Igafyrn encounter procedureG Dimitry Bartlett MD Work Phone: Radiation OncologyComment on above:Prostate cancer (HCC) (Primary Dx)Start: 02-16-2022 End: 75-79-4446bxxpczvpllOVSerene LINOFacility:S1Abhgm: 03-21-9517nplscvkykf DR VICKI RASCONacility:F2Akdtl: 08-05-2021 End: 86-58-0908Zhfsxiwwsw hospital visit by physicianPet Ct Scan Kayce Work Phone: Radiology Pet CTStart: 07-19-2021 End: 69-23-9320Jnz-procedure evaluation checkNico Lino Other [employer] Other Start: 10-24-2014 End: 50-83-4217Nfweiiz encounterDEFAULT PHYSICIANFacility:[facility] Procedures DateProcedureProcedure DetailPerforming ClinicianStart: 50-56-2235EXY screening Ccf ProviderStart: 03-91-4887VZK screeningCcf ProviderStart: 56-37-2298Tqe bmtry prtl coher intrfrmtry io lens pwr Marilu Kenny DO Work Phone: Start: 05-14-2024 End: 07-12-5540Hyuaj medical xm&eval compre new pt 1/> vstAge-related nuclear cataract of both eyesConchita Kenny DO Work Phone: comment on above:Age-related nuclear cataract of both eyes (Primary Dx)Start: 52-56-1757MGY screeningG Dimitry Bartlett MD Work Phone: Start: 89-66-5295ZNP screeningCcf ProviderStart: 07-29-2022 End: 89-32-6236FBX screeningCcf ProviderComment on above:Performed By: #### PSAD, FOL, FERR, FETIBC #### [facility] [address] [place] [address] Dr. Radha BrownStart: 63-94-7223Chxcm depression screening Pema Bartlett MD Work Phone: Start: 02-16-2022 End: 20-29-4494GCP screeningCcf ProviderComment on above:Performed By: #### PSAD #### [facility] [address] [place] [address] Dr. Radha BrownStart: 23-99-7121Woniafmivlrfz implant (physical object)HENRIQUE LANDRUM Start: 09-20-7885Ovssjw of prostateHENRIQUE LANDRUM Start: 01-07-6045KsprrtfpkviRRKDSMPC DIALLO Start: 55-66-8903Tppkglm examination of patientBenjamin Ball Other Start: 01-63-7702Lsyqscnlt for malignant neoplasm of colonBenjamin Ball Other Start: 65-28-5052Noegjnqva for malignant neoplasm of prostateBenjamin Ball Other Angioplasty of blood vesselJENNROBB JUAREZRY AppendectomyJENNIFER DIALLO Depression screeningBenjamin Ball Other Screening for malignant neoplasm of prostateNico Lino Other Plan of Treatment DateCare ActivityDetailAuthorStart: 21-11-2508Ogadk microalbumin profile DTaP,Tdap,Td Vaccine (2 - Td or Tdap)[facility] Hospitaltart: 85-52-8940CbcozaltvOhioHealth Nelsonville Health Centertart: 06-17-2025 End: 67-34-0507Oltnooi encounter kfmkiethz59/30/2025 11:30 AM EDT Office Visit Radiation Oncology [address] [place] [address] Ronda Bartlett MD [address] [place] [address] Labs [facility] be done at [facility] priorRadiation Oncology Comment on above:Labs to be done at [facility] priorStart: 06-12-2025 End: 19-46-1902Kdltyxcvkzkj [Mass/volume] in Serum or PlasmaTESTOSTERONE, TOTAL BY IMMUNOASSAY (ADULT MALES, OR INDIVIDUALS ON TESTOSTERONE THERAPY) Lab Routine Cancer of prostate w/med recur risk (T2b-c or Asaf 7 or PSA 10-20) ([facility]) Expected: 06/12/2025, Expires: 09/11/2025[facility] HospitalComment on above: Expected: 06/12/2025, Expires: 09/11/2025Start: 01-41-9964Ejrblzg [facility] Work Phone: Start: 04-11-2025 End: 25-19-8104Wiymglpj specific Ag [Mass/volume] in Serum or PlasmaPROSTATE- SPECIFIC ANTIGEN DIAGNOSTIC Lab Routine Cancer of prostate w/med recur risk (T2b-c or Taylor 7 or PSA 10-20) (HCC) Expected: 04/11/2025 (Approximate), Expires: 07/11/2025[facility] Work Phone: Comment on above:Expected: 04/11/2025 (Approximate), Expires: 07/11/2025Start: 12-10-2024 End: 47-31-6377Cfjhart encounter frqzhnehq88/25/2025 2:45 PM EDT Office Visit Radiation Oncology [address] [place] [address] Ronda Bartlett MD [address] [place] [address] 4 month follow upRadiation OncologyComment on above:4 month follow upStart: 12-07-2024 End: 71-93-9716Ahhitpms specific Ag [Mass/volume] in Serum or PlasmaPROSTATE- SPECIFIC ANTIGEN DIAGNOSTIC Lab Routine Cancer of prostate w/med recur risk (T2b-c or Asaf 7 or PSA 10-20) ([facility]) Expected: 12/07/2024, Expires: 03/08/2025[facility] Work Phone: Comment on above:Expected: 12/07/2024, Expires: 03/08/2025Start: 12-07-2024 End: 69-00-4009Mzzemhihepzg [Mass/volume] in Serum or PlasmaTESTOSTERONE, TOTAL BY IMMUNOASSAY (ADULT MALES, OR INDIVIDUALS ON TESTOSTERONE THERAPY) Lab Routine Cancer of prostate w/med recur risk (T2b-c or Asaf 7 or PSA 10-20) ([facility]) Expected: 12/07/2024, Expires: 03/08/2025[facility] HospitalComment on above: Expected: 12/07/2024, Expires: 03/08/2025Start: 98-97-3434Rlqtavh Directive DiscussionAdvance Directive DiscussionClefayette county memorial hospital ClinicStart: 08-17-2024 End: 20-63-9438Bmflptps specific Ag [Mass/volume] in Serum or PlasmaPROSTATE- SPECIFIC ANTIGEN DIAGNOSTIC Lab Routine Cancer of prostate w/med recur risk (T2b-c or Taylor 7 or PSA 10-20) ([facility]) Expected: 08/17/2024, Expires: 11/16/2024[facility] Work Phone: Comment on above:Expected: 08/17/2024, Expires: 11/16/2024Start: 08-08-2024 End: 66-20-9981Zzlzkvc encounter wluuhbnxn22/21/2024 9:15 AM EST Office Visit Radiation Oncology [address] [place] [address] Ronda Bartlett MD [address] [place] [address] [place] [address] 6 month rvRadiation OncologyComment on above:6 month rvStart: 00-70-1469Nfbfunnk ScreeningDiabetes ScreeningHolmes County Joel [facility]omerene Memorial Hospitaltart: 06-24-2024 End: 04-47-2590Swqjmay encounter sqtvjjrov85/07/2024 9:05 AM EDT Procedure Visit [facility] Conchita Kenny, DO [address] [place] [address] [facility] EXT DEPStart: 06-10-2024 End: 39-87-0027Mvupdbg encounter lqmhdqhar38/23/2024 10:25 AM EDT Procedure Visit [facility] Conchita Kenny, DO [address] [place] [address] [facility] EXT DEPStart: 90-32-5520Qihdk- 19 Vaccine ( season)Covid-19 Vaccine ( season)[facility] Hospitaltart: 59-81-6387Qcedomhqm vaccinationInfluenza Vaccine (#1)[facility] Hospitaltart: 05-14-2024 End: 91-16-8345Kdusjig encounter tutqqwjlw64/27/2024 1:45 PM EDT Office Visit [facility] [address] [place] [id number] Conchita Kenny, DO [address] [place] [address] ArrivedNOMS NB OPHTComment on above:ArrivedStart: 02-15-2024 End: 95-99-3235Zmsthtzd specific Ag [Mass/volume] in Serum or Plasma PSA/PROSTSPECAG DIAG Lab Routine Malignant neoplasm of prostate (HCC) Expected: 02/15/2024 (Approximate), Expires: 05/16/2024[facility] Work Phone: Comment on above:Expected: 02/15/2024 (Approximate), Expires: 05/16/2024Start: 32-99-8219Wchqy-19 Vaccine ()Covid- 19 Vaccine ()[facility] Hospitaltart: 35-09-1746Thrvwzw Directive DiscussionAdvance Directive DiscussionHolmes County [facility] Hospitaltart: 28-42-6083Iefyzltenh Health ScreeningBehavioral Health ScreeningCincinnati Shriners [facility] Start: 08-18-2023 End: 77-97-0968Pjunqcjx specific Ag [Mass/volume] in Serum or Plasma PSA/PROSTSPECAG DIAG Lab Routine Prostate cancer (HCC) Expected: 08/18/2023, Expires: 10/18/2023[facility] Work Phone: Comment on above:Expected: 08/18/2023, Expires: 10/18/2023Start: 62-48-5653Sldqy depression screening assessmentDEPRESSION SCREENINGHolmes County [facility] Hospitaltart: 68-89-7628Hknzcjd Directive DiscussionAdvance Directive DiscussionHolmes County [facility] Hospitaltart: 31-44-4170Lktevyklge Assessment Depression AssessmentHolmes County [facility] Hospitaltart: 08-19-2022 End: 44-46-4961Jykygkju specific Ag [Mass/volume] in Serum or Plasma PSA/PROSTSPECAG DIAG Lab Routine Prostate cancer (HCC) Expected: 08/19/2022 (Approximate), Expires:10/19/2022[facility] Work Phone: Comment on above:Expected: 08/19/2022 (Approximate), Expires: 10/19/2022Start: 95-76-2563RIVMNWZ DIRECTIVE DISCUSSIONADVANCE DIRECTIVE DISCUSSIONHolmes County [facility] Memorial Hospitaltart: 65-35-6684ANTLZRKZKP ASSESSMENT DEPRESSION ASSESSMENTHolmes County Joel [facility] Memorial Hospitaltart: 34-47-7969ZIEIS-19 VACCINE (3 - Booster for Moderna series)COVID-19 VACCINE (3 - Booster for Moderna series) [facility] Hospitaltart: 81-38-5300FVK Vaccine (1 - 1-dose 75+ series)RSV Vaccine (1 - 1-dose 75+ series)[facility] Hospitaltart: 76-76-5257Ppdwuoxuqfwb Vaccine: 50+ (2 of 2 - PCV)Pneumococcal Vaccine: 50+ (2 of 2 - PCV)[facility] Hospitaltart: 28-20-0083Bmywaxmvfpil Vaccine: 65+ (2 - PCV)Pneumococcal Vaccine: 65+ (2 - PCV)[facility] Hospitaltart: 15-55-8817Tnmybfzvvvmk Vaccine: 65+ (2 of 2 - PCV) Pneumococcal Vaccine: 65+ (2 of 2 - PCV)[facility] Hospitaltart: 10-04-2019 Pneumococcal Vaccine: 65+ Years (2 of 2 - PCV)Pneumococcal Vaccine: 65+ Years (2 of 2 - PCV)[facility] ServicesStart: 14-38-4311MOGCFCAPLKLP: 65+ (2 - PCV) PNEUMOCOCCAL: 65+ (2 - PCV)[facility] Hospitaltart: 60-99-7316SIB Vaccine (1 - 1- dose 60+ series)RSV Vaccine (1 - 1-dose 60+ series)[facility] Hospitaltart: 44-96-7828REQDCVJD VACCINE (1 of 2)SHINGRIX VACCINE (1 of 2)[facility] Start: 70-42-3966JSGPPJRB SCREENDIABETES SCREENHolmes County [facility] Memorial Hospitaltart: 1964 SHINGRIX VACCINE (1 of 2)SHINGRIX VACCINE (1 of 2)[facility] Hospitaltart: 94-12-9970Qogmn microalbumin profileDTAP,TDAP,TD (1 - Tdap)[facility] Start: 27-48-0718Yjreonr ScreeningAnxiety ScreeningHolmes County [facility] Hospitaltart: 51-79-1155Kalfskbopd ScreeningDepression ScreeningHolmes County [facility] Hospitaltart: 01-84-8706NEEEIASVR C SCREENINGHEPATITIS C SCREENINGHolmes County [facility] Hospitaltart: 88-27-0600Gwkitakad C screeningHepatitis C ScreeningCincinnati Shriners Hospital Comprehensive metabolic 2000 panel - Serum or PlasmaSelect Medical Specialty Hospital - CantonComprehensive metabolic 2000 panel - Serum or PlasmaSelect Medical Specialty Hospital - CantonComprehensive metabolic 2000 panel - Serum or PlasmaSelect Medical Specialty Hospital - CantonComprehensive metabolic 2000 panel - Serum or Plasma [facility] CantonCT Abdomen and Pelvis WO contrastSelect Medical Specialty Hospital - CantonMicroalbumin [Mass/volume] in UrineSelect Medical Specialty Hospital - CantonPatient EducationHighsmith-Rainey Specialty Hospital Hemorrhoids Discharge Instructions Know your [facility] Work Phone: [facility] referralCity Hospital Work Phone: XR Hip - right 2 [facility] CampusXR Lumbar spine 2 or 3 [facility] Immunizations Immunization DateImmunizationNotesCare DjthublfEjzxbtgz71-01-3207jyoppobxd, high dose seasonal, preservative-freeSelect Medical Specialty Hospital - Canton09-27-2023 COVID-19 Vaccine Pfizer - Documentation Purposes OnlyNico Lino Other [facility]09-27-2023Flu Shot - Documentation Purposes OnlyBederrick Lino Other [employer] Other [id number] virus vaccine, unspecified formulationConchita Kenny DO Work Phone: [facility] Health ServicesRrbcmbmywj67-46-5494fygsowa toxoid, reduced diphtheria toxoid, and acellular pertussis vaccine, adsorbedBenseng Lino Other [employer] Other [id number] (aIIV4) vaccine, age 65+ yr, quadrivalent, PF (FLUAD QUAD)NA Adolfo WILSON Work Phone: [facility] HospitalKxgryl85-74-4974aqwshuvfo virus vaccine, split virus (incl. purified surface antigen)Nico Lino Other [employer] Other [id number] virus vaccine, unspecified formulationHENRIQUE LANDRUM [facility]11-05-2022SARS-CoV-2 (COVID-19) mRNAMUL.ORD!o05608GKJYICIG DIALLO [facility]08-18-2022SARS-CoV-2 mRNA (bvanitvamfj-mcgd-vvpzslj) vaccineJENNIFER DIALLO [facility]09-23-2021influenza nasal, unspecified formulationANATOLY Bartlett MD Work Phone: [facility] HospitalAhlydl11-63-4792aytpzczud virus vaccine, split virus (incl. purified surface antigen)Nico Lino Other [employer] Other [id number] virus vaccine, unspecified formulationJEDENNY DIALLO [facility]09-23-2021Seasonal trivalent influenza vaccine, adjuvanted, preservative freeANATOLY Bartlett MD Work Phone: [facility] HospitalWslzts09-34-3899ECHRI-24 vaccine, full dose (MODERNA)ANATOLY Bartlett MD Work Phone: [facility] HospitalPuuawz47-37-7204XFTYX-60 vaccine, full dose (MODERNA)ANATOLY Bartlett MD Work Phone: [facility] HospitalWzefng56-57-7735ixfmhqpvx virus vaccine, split virus (incl. purified surface antigen)Nico Lino Other [employer] Other [id number] virus vaccine, unspecified formulation[facility]09-17-2019influenza nasal, unspecified formulationANATOLY Bartlett MD Work Phone: [facility] HospitalPtixsm40-25-5835shdvkjcxl virus vaccine, unspecified formulationJEDENNY LANDRUM [facility]09-17-2019Seasonal trivalent influenza vaccine, adjuvanted, preservative Sharon Bartlett MD Work Phone: [facility] HospitalSmsjtz72-87-1080nfqrnmcloesc Conjugate, unspecified formulation; Translations: [Need for prophylactic vaccination ag ainst Streptococcus pneumoniae (pneumococcus)]Nico Lino Other [employer] Other [id number] polysaccharide vaccine, 23 valMeena Bartlett MD Work Phone: [facility] HospitalHismjo70-46-1944blptokuzn virus vaccine, split virus (incl. purified surface antigen)Nico Lino Other [employer] Other [id number] virus vaccine, unspecified formulation[facility]10-07-2015pneumococcal conjugate vaccine, 13 valentBenseng Lino Other [facility] Payers DatePayer CategoryPayerPolicy [id number]-pay2024MedicaidAETNA MEDICARE ADVANTAGE [id number] 2023Medicare (Managed Care) AETNA MEDICARE Member Subscriber Plan / Payer (Effective 2022-Present) Name: Segun Johnson Relation to Subscriber: Self Name: Segun Johnson Payer ID: [id number] (NAIC) Type: PPO Address: [address] [place] [id number] 27-64-1425IhkucsiTOS MMO TRADITIONAL [id number] 2020-Present [phone] [address] [place] [address] [id number] 2011MedicareMEDICARE MEDICARE A AND B [id number] 2011-Present [phone] [place] [address] [id number] [id number] [id number] [id number] 1960Self-[id number] [id number] 2.16840.1.196481.3.579.2.593 [id number] 2.16840.1.323046.3.57[id number] 2.16840.1.006484.3.57[id number] 2.16840.1.618408.3.57[id number] 2..840.1.662418.3.57[id number] 2.840.1.927464.3.57[id number] 2.840.1.124155.3.57[id number] 2.840.1.26[id number] 2.840.1.011804.3.579.2.531 Social History DateTypeDetailFacilityStart: 03-03-2021 End: 05-53-0330Ntfaame smoking status NHISEx-smokerHolmes County Joel [facility]rene [facility] Hospitaltart: 03-03-1957 End: 59-68-9197Qmmnyaf of tobacco useCurrent smokerHolmes County Joel Pomerene Memorial Hospitaltart: 03-03-2021 End: 80-98-4396Wyawihxrnr smoked current (pack per day) - Reported0.5Clevelformerly [facility], [facility] ClinicStart: 03-03-2021 End: 29-51-1377Izkvqmd use and exposureSmokeless tobacco non-userHolmes County Joel Pomerene Memorial Hospitaltart: 02-17-2022 End: 15-43-0686Ufqnxxt intakeCurrent drinker of alcohol (finding)[facility] Hospitaltart: 31-10-7279Seqlrag SDOH Alcohol CommentSociallyCleveland Clinic Start: 64-53-2180Uuv Assigned At BirthNot on fileDoddridge ClinicStart: 07-06-2021 End: 87-82-3998Ehwpyppm to SARS-CoV-2 (event)Not sureHolmes County Joel Pomerene Memorial Hospitaltart: 03-03-1957 End: 91-77-1910Kfltzex of tobacco useCigarette SmokerHolmes County Joel Pomerene Memorial Hospitaltart: 08-18-2022 End: 11-61-4256Rim Assigned At [facility] HospitalAdult Depression Screening Zrflcvkale1Ditjqzevk ClinicStart: 24-80-3871Fxl Assigned At [facility] Hospitaltart: 07-30-2024 End: 73-45-3862NuxMhcs (finding)[facility]onTobacco smoking status NHISTobacco smoking consumption unknownSaint Francis Hospital & Health Services Medical Equipment Procedure CodeEquipment CodeEquipment Original TextEquipment IdentifierDates PROSTATIC BRACHYTHERAPY Ronda Bartlett MD 07/07/21 Unknown OtherFDAStart: 35-89-4840QCQNVKPNE BRACHYTHERAPY Ronda Bartlett MD 07/07/21 Unknown Other FDAStart: 07-07-2021 Functional Status LxggVepnwdefvoVolvtlUxiwivfv87-83-3001Xdctiihema StatusN/AExec[facility] Clinical Notes 02-17-2022 to 06-17-2025 Note Date & VixpIxjiMettvniz83-15-9215 NoteHNO ID: [id number] Author: Ronda BARTLETT MD Service: ? Author Type: Physician Type: Progress Notes Filed: 06/24/2025 14:24 Note Text: ) C. 9/radiation Oncology - Follow Up Note PATIENT NAME: Segun Johnson PATIENT DIAGNOSIS: Prostate adenocarcinoma, initial PSA 11.5, biopsy Taylor score 4 + 3 = 7 (grade [...] Brachytherapy boost: 100 Gy, Pd-103 INTERVAL HISTORY: Patient has had some new medical issues including 15 pound weight loss difficulty with diabetic control. Denies any focal areas of skeletal pain. Denies any hematuria. No bladder changes otherwise. PSA HISTORY: PSA. (no units) Date Value 06/02/2025 2.75 11/21/2024 1.35 07/30/2024 1.21 02/14/2024 0.61 ALLERGIES No Known Allergies glipiZIDE (GLUCOTROL) 5 mg tablet Take 1 tablet by mouth once daily. pantoprazole DR (PROTONIX) 40 mg tablet TAKE 1 TABLET BY MOUTH EVERY DAY ON AN EMPTY STOMACH 30 MINUTES PRIOR TO BREAKFASTS folic acid 1 mg tablet once daily. prednisoLONE acetate (PRED FORTE) 1 % ophthalmic suspension Administer 1 drop into both eyes four times a day (morning, noon, evening, bedtime) for 14 days. cyanocobalamin, vitamin B-12, (VITAMIN B12 ORAL) Take by mouth. loperamide HCl (IMODIUM ORAL) Take by mouth. aspirin, enteric coated (ASPIRIN, ENTERIC COATED) 81 mg EC tablet Take by mouth. atenolol (TENORMIN) 25 mg tablet Take 25 mg by mouth. atorvastatin (LIPITOR) 80 mg tablet Take 80 mg by mouth. lisinopril (ZESTRIL, PRINIVIL) 10 mg tablet Take 10 mg by mouth. sertraline (ZOLOFT) 100 mg tablet Take 100 mg by mouth. metFORMIN (GLUCOPHAGE) 1,000 mg tablet TAKE 1 TABLET BY MOUTH 2 TIMES A DAY with breakfast and evening meal glimepiride (AMARYL) 2 mg tablet REVIEW OF SYSTEMS: D/N = 4-6/2-3 Hematuria: none Dysuria: Yes Incontinence: occ post void drib Urgency: moderate Catheter use: No Medications to aid urination: n - Total AUA Score: 5 Bowel movement frequency: 1/day Bowel movement quality: normal Blood per rectum: none ADT: Lupron for approximately 12 months currently off PHYSICAL EXAM: BP 82/50 Pulse 68 Temp 36.3 ?C (97.3 ?F) Resp 20 Wt 84.3 kg (185 lb 13.6 oz) SpO2 99% BMI 27.05 kg/m? KPS: 100 General appearance: Alert and oriented. No acute distress. Rectal exam def Extremities: No deformities, edema, skin discoloration, clubbing or cyanosis. Lymph Nodes: No cervical lymphadenopathy, No supraclavicular lymphadenopathy, No axillary lymphadenopathy. Skin: Skin color, texture, turgor normal, no suspicious rashes or lesions. 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 PSA has risen over the last 6 months. Patient also with multiple other medical issues and declining performance status. Recommend rechecking PSA in 2 to 3 months if continues to rise would recommend PSMA PET. Signed by: Ronda Bartlett MD cc: Nico Lino ([facility]) [facility] [place] [address] Portions of the above note extracted and edited from previous visit as well as active information included in the EMR.[facility]09-30-2025 Note HNO ID: [id number] Author: RAUDEL WADDELL RN Service: ? Author Type: Registered Nurse Type: Progress Notes Filed: 06/24/2025 14:24 Note Text: [facility]* Diagnosis Onset Date Resolution Status Admit Date ASHD (arteriosclerotic heart disease) acuteJuly 2024 1:26pmChronic kidney diseaseacuteJuly 2024 1:26pm Chronic venous insufficiencyacuteJuly 2024 1:26pmDiabetes mellitus with hyperglycemiaacuteJuly 2024 1:26pmElevated cholesterolacuteJu2024 1:26pmPernicious anemiaacuteJu2024 1:26pmPrimary hypertensionacuteApril 16, 2025 1:26pmProstate canceracuteJu2024 1:26pmWeight lossacuteJu2024 1:26pmASHD (arteriosclerotic heart disease)acuteSept2024 1:41pmChronic kidney diseaseacuteSept2024 1:41pmChronic venous insufficiencyacuteSept2024 1:41pmDiabetes mellitus with hyperglycemiaacuteSept2024 1:41pmElevated cholesterolacuteSept2024 1:41pmPernicious anemiaacuteSept2024 1:41pmPrimary hypertensionacutept2024 1:41pmProstate canceracuteSept2024 1:41pmWeight lossacuteSept2024 1:41pmAbdominal painacute Sheila 2024 1:25pmASHD (arteriosclerotic heart disease)acuteSeptember 2024 1:25pmChronic kidney diseaseacuteSeptember 2024 1:25pmDiabetes mellitus with hyperglycemiaacuteSeptember 2024 1:25pmPernicious anemia acuteSeptember 2024 1:25pmPrimary hypertensionacuteSeptember 2024 1:25pmProstate canceracuteSeptember 2024 1:25pmScreening for colon cancer acuteSeptember 2024 1:25pmWeight lossacuteSeptember 2024 1:25pm Laceration of upper arm without complicationnoneactiveSeptember 2024 1:25pmASHD (arteriosclerotic heart disease)acuteOctober 2024 2:29pmCerebral atherosclerosisacuteOctober 2024 2:29pmChronic kidney diseaseacuteOctober 2024 2:29pmChronic venous insufficiencyacuteOctober 2024 2:29pm Diabetes mellitus with hyperglycemiaacuteOctober 2024 2:29pmElevated cholesterolacuteOctober 2024 2:29pmPernicious anemiaacuteOctober 2024 2:29pmPrimary hypertensionacuteOctober 2024 2:29pmProstate canceracute June 23, 2025 2:29pmWeight lossacuteOctober 2024 2:29pm [facility] Work Phone: 1(419) 942-370107-30-2025 Evaluation note* Diagnosis Onset Date Resolution Status Admit Date ASHD (arteriosclerotic heart disease) acuteJuly 2024 1:26pmChronic kidney diseaseacuteJuly 2024 1:26pm Chronic venous insufficiencyacuteJuly 2024 1:26pmDiabetes mellitus with hyperglycemiaacuteJuly 2024 1:26pmElevated cholesterolacuteJuly 2024 1:26pmPernicious anemiaacuteJuly 2024 1:26pmPrimary hypertensionacuteJuly 2024 1:26pmProstate canceracuteJuly 2024 1:26pmWeight lossacuteJuly 2024 1:26pmASHD (arteriosclerotic heart disease)acuteSeptember 2024 1:41pmChronic kidney diseaseacuteSeptember 2024 1:41pmChronic venous insufficiencyacuteSeptember 2024 1:41pmDiabetes mellitus with hyperglycemiaacuteSeptember 2024 1:41pmElevated cholesterolacuteSeptember 2024 1:41pmPernicious anemiaacuteSeptember 2024 1:41pmPrimary hypertensionacuteSeptember 2024 1:41pmProstate canceracuteSeptember 2024 1:41pmWeight lossacuteSeptember 2024 1:41pmAbdominal painacute Sheila 2024 1:25pmASHD (arteriosclerotic heart disease)acuteSeptember 2024 1:25pmChronic kidney diseaseacuteSeptember 2024 1:25pmDiabetes mellitus with hyperglycemiaacuteSeptember 2024 1:25pmPernicious anemia acuteSeptember 2024 1:25pmPrimary hypertensionacuteSeptember 2024 1:25pmProstate canceracuteSeptember 2024 1:25pmScreening for colon cancer acuteSeptember 2024 1:25pmWeight lossacuteSeptember 2024 1:25pm Laceration of upper arm without complicationnoneactiveSeptember 2024 1:25pmASHD (arteriosclerotic heart disease)acuteOctober 2024 2:29pmCerebral atherosclerosisacuteOctober 2024 2:29pmCholelithiasisacuteOctober 2024 2:29pmChronic kidney diseaseacuteOctober 2024 2:29pmChronic venous insufficiencyacuteOctober 2024 2:29pmDiabetes mellitus with hyperglycemia acuteOctober 2024 2:29pmElevated cholesterolacuteOctober 2024 2:29pm Primary hypertensionacuteOctober 2024 2:29pmProstate canceracuteOctober 2024 2:29pmWeight lossacuteOctober 2024 2:29pm [facility] Work Phone: 1(149) 951-351907-07-2025 Evaluation note* Diagnosis Onset Date Resolution Status Admit Date ASHD (arteriosclerotic heart disease) acuteJuly 2024 10:41amChronic kidney diseaseacuteJuly 2024 10:41am Chronic venous insufficiencyacuteJuly 2024 10:41amDiabetes mellitus with hyperglycemiaacuteJuly 2024 10:41amElevated cholesterolacuteJuly 2024 10:41amPernicious anemiaacuteJuly 2024 10:41amPrimary hypertensionacuteJuly 2024 10:41amProstate canceracuteJuly 2024 10:41amWeight lossacuteJuly 2024 10:41amASHD (arteriosclerotic heart disease)acuteJuly 2024 1:26pmChronic kidney diseaseacuteJuly 2024 1:26pmChronic venous insufficiencyacuteJuly 2024 1:26pmDiabetes mellitus with hyperglycemia acuteJuly 2024 1:26pmElevated cholesterolacuteJuly 2024 1:26pm Pernicious anemiaacuteJuly 2024 1:26pmPrimary hypertensionacuteJuly 2024 1:26pmProstate canceracuteJuly 2024 1:26pmWeight lossacuteJuly 2024 1:26pm [facility] Work Phone: 1(178) 485-147707-07-2025 Evaluation note* Diagnosis Onset Date Resolution Status Admit Date ASHD (arteriosclerotic heart disease) acuteJuly 2024 10:41amChronic kidney diseaseacuteJuly 2024 10:41am Chronic venous insufficiencyacuteJuly 2024 10:41amDiabetes mellitus with hyperglycemiaacuteJuly 2024 10:41amElevated cholesterolacuteJuly 2024 10:41amPernicious anemiaacuteJuly 2024 10:41amPrimary hypertensionacuteJuly 2024 10:41amProstate canceracuteJuly 2024 10:41amWeight lossacuteJuly 2024 10:41amASHD (arteriosclerotic heart disease)acuteJuly 2024 1:26pmChronic kidney diseaseacuteJuly 2024 1:26pmChronic venous insufficiencyacuteJuly 2024 1:26pmDiabetes mellitus with hyperglycemia acuteJuly 2024 1:26pmElevated cholesterolacuteJuly 2024 1:26pm Pernicious anemiaacuteJuly 2024 1:26pmPrimary hypertensionacuteJuly 2024 1:26pmProstate canceracuteJuly 2024 1:26pmWeight lossacuteJuly 2024 1:26pmASHD (arteriosclerotic heart disease)acuteSeptember 2024 1:41pm Chronic kidney diseaseacuteSeptember 2024 1:41pmChronic venous insufficiencyacuteSeptember 2024 1:41pmDiabetes mellitus with hyperglycemiaacuteSeptember 2024 1:41pmElevated cholesterolacuteSeptember 2024 1:41pmPernicious anemiaacuteSeptember 2024 1:41pmPrimary hypertensionacuteSeptember 2024 1:41pmProstate canceracuteSeptember 2024 1:41pmWeight lossacuteSeptember 2024 1:41pm [facility] Work Phone: 1(320) 438-444607-07-2025 Evaluation note* Diagnosis Onset Date Resolution Status Admit Date ASHD (arteriosclerotic heart disease) acuteJuly 2024 10:41amChronic kidney diseaseacuteJuly 2024 10:41am Chronic venous insufficiencyacuteJuly 2024 10:41amDiabetes mellitus with hyperglycemiaacuteJuly 2024 10:41amElevated cholesterolacuteJuly 2024 10:41amPernicious anemiaacuteJuly 2024 10:41amPrimary hypertensionacuteJuly 2024 10:41amProstate canceracuteJuly 2024 10:41amWeight lossacuteJuly 2024 10:41amASHD (arteriosclerotic heart disease)acuteJuly 2024 1:26pmChronic kidney diseaseacuteJuly 2024 1:26pmChronic venous insufficiencyacuteJuly 2024 1:26pmDiabetes mellitus with hyperglycemia acuteJuly 2024 1:26pmElevated cholesterolacuteJuly 2024 1:26pm Pernicious anemiaacuteJuly 2024 1:26pmPrimary hypertensionacuteJuly 2024 1:26pmProstate canceracuteJuly 2024 1:26pmWeight lossacuteJuly 2024 1:26pmASHD (arteriosclerotic heart disease)acuteSeptember 2024 1:41pm Chronic kidney diseaseacuteSeptember 2024 1:41pmChronic venous insufficiencyacuteSeptember 2024 1:41pmDiabetes mellitus with hyperglycemiaacuteSeptember 2024 1:41pmElevated cholesterolacuteSeptember 2024 1:41pmPernicious anemiaacuteSeptember 2024 1:41pmPrimary hypertensionacuteSeptember 2024 1:41pmProstate canceracuteSeptember 2024 1:41pmWeight lossacuteSeptember 2024 1:41pmASHD (arteriosclerotic heart disease)acuteSeptember 2024 1:25pmChronic kidney diseaseacute June 03, 2025 1:25pmDiabetes mellitus with hyperglycemiaacuteSeptember 2024 1:25pmElevated cholesterolacuteSeptember 2024 1:25pmPernicious anemiaacuteSeptember 2024 1:25pmPrimary hypertensionacuteSeptember 2024 1:25pmProstate canceracuteSeptember 2024 1:25pmWeight lossacute June 03, 2025 1:25pmLaceration of upper arm without complication noneactiveSeptember 2024 1:25pm [facility] Work Phone: 1(111) 629-784804-01-2025 Evaluation note* Diagnosis Cancer of prostate w/med recur risk (T2b-c or Asaf 7 or PSA 10-20) (HCC)- Primary Malignant neoplasm of prostate documented in this encounter [facility]03-25-2025 History of Present illness Narrative* Ronda [...] ASSESSMENT/PLAN: Prostate adenocarcinoma, initial PSA 11.5, biopsy Taylor score 4 + 3 = 7 (grade group 3), clinical stage T2b, N0, M0, stage IIC [T1-T2, N0, M0, PSA <20, GG 3] (AJCC 8th ed.), s/pPelvic radiation and prostate brachytherapy boost. Clinically doing well. PSA with minimal change manager the last 3 to 4 months. Has risen over the last12 months still likely related to testosterone recovery after prior ADT. Recommend continued close observation. If continues to climb consider PSMA PET. Signed by: Ronda Bartlett MD cc: Nico Lino ([facility]) [address] [place] [address] Portions of the above note extracted and edited from previous visit as well as active information included in the EMR. * Angélica Acharya RN - 12/10/2024 2:38 PM EDT AUA 10 Angélica Acharya RN documented in this encounterC[facility]03-25-2025 NoteHNO ID: [id number] Author: Ronda BARTLETT MD Service: ? Author Type: Physician Type: Progress Notes Filed: 12/17/2024 10:57 Note Text: ) C. 9/radiation Oncology - Follow Up Note PATIENT NAME: Segun Johnson PATIENT DIAGNOSIS: Prostate adenocarcinoma, initial PSA 11.5, biopsy Taylor score 4 + 3 = 7 (grade [...] Clinically doing well. PSA with minimal change manager the last 3 to 4 months. Has risen over the last 12 months still likely related to testosterone recovery after prior ADT. Recommend continued close observation. If continues to climb consider PSMA PET. Signed by: Ronda Bartlett MD cc: Nico Lino ([facility]) [address] [place] [address] Portions of the above note extracted and edited from previous visit as well as active information included in the EMR.[facility]03-25-2025 Note HNO ID: [id number] Author: ANGÉLICA ACHARYA RN Service: ? Author Type: Registered Nurse Type: Progress Notes Filed: 12/17/2024 10:57 Note Text: HUNTER Acharya RNParkview Health [facility]11-22-2024 Evaluation note* Diagnosis Cancer of prostate w/med recur risk (T2b-c or Asaf 7 or PSA 10-20) (HCC)- Primary Malignant neoplasm of prostate documented in this encounter [facility]11-22-2024 NoteHNO ID: [id number] Author: Ronda BARTLETT MD Service: ? Author [...] by: Ronda Bartlett MD cc: Nico Lino ([facility]) [address] [place] [address] Dr. Storey Portions of the above note extracted and edited from previous visit as well as active information included in the EMR.[facility]11-22-2024 History of Present illness Narrative* Ronda Bartlett [...] by: Ronda Bartlett MD cc: Nico Lino ([facility]) [facility] [place] [address] Dr. Storey Portions of the above note extracted and edited from previous visit as well as active information included in the EMR. documented in this encounterC[facility]11-[facility]-2024 Nurse Note* Raudel Waddell LPN - 08/09/2024 9:15 AM EST AUA= 8 [facility]11-22-2024 Nurse Note* Raudel Waddell LPN - 08/09/2024 9:15 AM EST AUA= 8 documented in this encounterCinc[facility]08-27-2024 History of Present illness Narrative* Conchita [...] (CE) eval for pt referred by dr aWtson. Pt states vision seems duller. Pt states [...] Date ASHD (arteriosclerotic heart disease) ([facility]) Cataract Diabetes mellitus with hyperglycemia ([facility]) Dry eyes Elevated cholesterol ([facility]) CATHY (generalized anxiety disorder) ([facility]) Hypertension ([facility]) Pernicious anemia Prostate cancer ([facility]) 2021 s/p Hormone tx, CTx, external beam [...] @ 2:06 PM Additional Tests Keratometry K1 [place] K2 [place] Right 45.5 151 46.5 61 Left 45.75 [...] Normal Normal Refraction Wearing Rx Sphere Cylinder [place] Add Right -4.75 +0.00 180 +2.50 Left -5.75 -0.50 055 +2.50 Manifest Refraction Sphere Cylinder [place] Right -4.25 -1.25 110 Left -6.00 -1.00 055 Final Rx Sphere Cylinder [place] Dist [place] Right -4.25 -0.75 110 20/40 [...] different lens options were explained including the dgo-kz-irbydk fees for any upgrades. Intraocular lens (IOL) [...] OD - 06/24. documented in this encounterSaint [facility] Hospital & Health ServicesWmuixewjtk87-07-6327 Evaluation note* Diagnosis Cancer of prostate w/med recur risk (T2b-c or Taylor 7 or PSA 10-20) (HCC)- Primary Malignant neoplasm of prostate documented in this encounter [facility]05-30-2024 History of Present illness Narrative* Ronda Bartlett MD - 02/15/2024 10:00 AM EDT Radiation Oncology - Follow Up Note PATIENT NAME: Segun Johnson PATIENT DIAGNOSIS: Prostate adenocarcinoma, initial PSA 11.5, biopsy Taylor score 4 + 3 = 7 (grade [...] Ronda Bartlett MD cc: Nico Lino ([facility]) [address] [place] [address] Dr. Storey Portions of the above note extracted and edited from previous visit as well as active information included in the EMR. documented in this encounterCincinnati [facility]05-30-2024 Nurse Note* Venus Vasques MA - 02/15/2024 9:47 AM EDT AUA=9 [facility]04-01-2024 Nurse Note* Venus Vasques MA - 02/15/2024 9:47 AM EDT AUA=9 documented in this encounterCincinnati [facility]11-30-2023 History of Present illness Narrative* Ronda [...] by: Ronda Bartlett MD cc: Nico Lino ([facility]) [address] [place] [address] Dr. Storey Portions of the above note extracted and edited from previous visit as well as active information included in the EMR. documented in this encounterCinc[facility]11-30-2023 Nurse Note* Angélica Acharya RN - 08/17/2023 10:07 AM EST AUA 7 Angélica Acharya RN documented in this encounterCincinnati [facility]11-08-2023 Evaluation note* Encounter Date Diagnosis Assessment Notes Treatment Notes Treatment Clinical Notes Jul, Medicare annual wellness visit, subsequent [...] reviewed and amended by provider signed below. Jul,SHD (arteriosclerotic heart disease) (ICD-10 - I25.10)This patient is stable without activity related CP, dyspnea or lightheadedness. They are instructedto continue exercise and AHA diet plan. Continue secondary prevention measures. Jul,Type 2 diabetes mellitus with hyperglycemia, without long-term current use of insulin (ICD-10 - E11.65)This patient is following a comprehensive diabetic treatment [...] GI side effects at a higher dose Jul,rimary hypertension (ICD-10 - I10)This patient is instructed to consume a healthy, low-fat, low-salt diet. They are also encouraged to continue exercise to achieve/maintain a normal BMI. Jul,ure hypercholesterolemia (ICD-10 - E78.00)Instructed on diet and exercise with continued statin therapy.Discussed the beneficial effects of lo wering cholesterol in reducing the risk for cerebrovascular and cardiovascular disease. Jul,hronic venous insufficiency (ICD-10 - I87.2)Avoid salt and elevate lower extremities, support stockings, inspect legs and feet daily for blisters and ulcerations. 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 Recheck CBC Jul,ernicious anemia (ICD-10 - D51.0)Continue supplement, recheck CBC [facility] Other 07-18-2023 Evaluation note* Encounter Date Diagnosis Assessment Notes Treatment Notes Treatment Clinical Notes Mar, Type 2 diabetes gio itus with hyperglycemia, without long-term current use of insulin (ICD-10 - E11.65) [facility] Other 03-14-2023 Evaluation note* Encounter Date Diagnosis Assessment Notes Treatment Notes Treatment Clinical Notes Nov, ASHD (arteriosclerotic heart dis ease) (ICD-10 - I25.10) This patient is stable without activity related CP, dyspnea or lightheadedness. They are instructedto continue exercise and AHA diet plan. Nov,Type 2 diabetes mellitus with hyperglycemia, without long-term current use of insulin (ICD-10 - E11.65)This patient is following a comprehensive diabetic treatment plan. They are checking their feet daily for calluses and nonhealing ulcers. They are being seen for yearly dilated eye examinations. Goals: SBP less than 130, LDL less than 100, FBS less than 140, AC and A1C less than 7%. They are checking their BS daily, will which are reviewed at the office visit. A1C: due Nov,rimary hypertension (ICD-10 - I10)This patient is instructed to consume a healthy, low-fat, low-salt diet. They are also encouraged to continue exercise to achieve/maintain a normal BMI. Nov,Hyperlipidemia type II (ICD-10 - E78.01)Diet and exercise with continued statin therapy. Nov,hronic venous insufficiency (ICD-10 - I87.2)Avoid salt and elevate lower extremities, support stockings, inspect legs and feet daily for blisters and ulcerations. Nov,rostate cancer (ICD-10 - C61)s/p brachytherapy, ext beam radiation and ADTNo s/s recurrence, f/u Urology Nov,AD (generalized anxiety disorder) (ICD-10 - F41.1)Stable, continue healthy diet, exercise. No change in treatment Nov,ernicious anemia (ICD-10 - D51.0)B12 monthly [facility] Other 02-14-2023 Hospital Discharge instructions Patient Education [...] urethra. Follow these instructions at home: Take twic-skp-kcsoczy and prescription medicines only as told by [...] 09/04/2006 Document Revised: 07/30/2019 Document Reviewed: 10/09/2017 [employer] Patient Education 2020 [employer] Follow Up Care 05/03/2022 11:28:51 With:HENRIQUE LANDRUM PA-C, URL Address: [address] [place] [address] When:Within 18 Month(s) Comments:PSA [facility] 12-01-2022 History of Present illness Narrative* [...] cancer. Irlanda Castro APRN.KEKE [facility] History of Present illness Narrative* Ronda Bartlett MD - 08/18/2022 10:30 AM EST Radiation Oncology - Follow Up Note PATIENT NAME: Segun Johnson PATIENT DIAGNOSIS: Prostate adenocarcinoma, initial PSA 11.5, biopsy Taylor score 4 + 3 = 7 (grade [...] Bartlett MD cc: Nico Lino (Sanjeev) [address] [place] [address] Dr. Storey Portions of the above note extracted and edited from previous visit as well as active information included in the EMR. documented in this encounterC[facility]12[facility] Nurse Note* Angélica Acharya RN - 08/18/2022 10:30 AM EST AUA 14 Angélica Acharya RN documented in this encounterC[facility]06[facility] History of Present illness Narrative* G Dimitry Bartlett MD - 02/17/2022 9:58 AM EDT Radiation Oncology - Follow Up Note PATIENT NAME: Segun Johnson PATIENT DIAGNOSIS: Prostate adenocarcinoma, initial PSA 11.5, biopsy Taylor score 4 + 3 = 7 (grade [...] by: Ronda Bartlett MD cc: Nico Lino ([facility]) [address] [place] [address] Dr. Storey Portions of the above note extracted and edited from previous visit as well as active information included in the EMR. documented in this encounterC[facility]06-[facility]22 Nurse Note* Angélica Acharya RN - 02/17/2022 9:54 AM EDT AUA 10 Angélica Acharya RN documented in this encounterCincinnati [facility] HospitalEvaluation + Plan note Future Appointments Appointment Date:03/05/2024 11:00:00 AM Scheduled Provider:HENRIQUE LANDRUM PA-C Location:[facility] Appointment Type:URO Office Visit Diagnostic Tests Pending * PSA Total 2/14/23 [facility] evaluation note* Diagnosis Prostate cancer (HCC)- Primary Malignant neoplasm of prostate [facility] Diagnosis Prostate cancer (HCC) Malignant neoplasm of prostate [facility]* Diagnosis Prostate cancer (HCC)- Primary Malignant neoplasm of prostate [facility] noteNo [facility] [employer] [employer] Other Evaluation note* Diagnosis Malignant neoplasm of prostate (HCC)- Primary Malignant neoplasm of prostate documented in this encounter [facility] note* Diagnosis Onset Date Resolution Status ASHD (arteriosclerotic heart disease) acuteChronic venous insufficiencyacuteDiabetes mellitus with hyperglycemiaacute Elevated cholesterolacutePrimary hypertensionacuteProstate canceracute [facility] Work Phone: Evaluation note* Diagnosis Age-related nuclear cataract of both eyes- Primary documented in this encounter [facility] HealthcareEvaluation note* Diagnosis Age-related nuclear cataract of both eyes [facility] Diagnosis Onset Date Resolution Status Admit Date ASHD (arteriosclerotic heart disease) acuteNov2023 10:57amChronic venous insufficiencyacuteNov2023 10:57amDiabetes mellitus with hyperglycemiaacuteNov2023 10:57am Elevated cholesterolacuteNov2023 10:57amMedicare annual wellness visit, subsequentacuteJuly 30, 2024 10:57amPrimary hypertensionacute November 2023 10:57amProstate canceracuteNov2023 10:57am [facility] Work Phone: Evaluation note* Diagnosis Age-related nuclear cataract of both eyes- Primary documented in this encounter [facility] HealthcareEvaluation note* Diagnosis Onset Date Resolution Status Admit Date Low back pain radiating to right leg acuteMarch 2024 9:54amRight hip painacuteMarch 2024 9:54am [facility] Work Phone: Evaluation note* Diagnosis Onset Date Resolution Status Admit Date ASHD (arteriosclerotic heart disease) acuteJuly 2024 10:41amChronic kidney diseaseacuteJuly 2024 10:41am Chronic venous insufficiencyacuteJuly 2024 10:41amDiabetes mellitus with hyperglycemiaacuteJuly 2024 10:41amElevated cholesterolacuteJuly 2024 10:41amPernicious anemiaacuteJuly 2024 10:41amPrimary hypertensionacuteJuly 2024 10:41amProstate canceracuteJuly 2024 10:41amWeight lossacuteJuly 2024 10:41am [facility] Work Phone: History general Narrative - Reported* Type Description Date Medical History ASHD (arteriosclerotic heart dis ease) Medical HistoryEssential hypertensionMedical HistoryControlled type 2 diabetes mellitus with hyperglycemia, without long-term current use of insulinMedical HistoryProstate cancerMedical HistoryChronic venous insufficiencyMedical History CATHY (generalized anxiety disorder)Medical HistoryFolate deficiency anemiaMedical HistoryPernicious anemiaMedical HistoryHigh risk medication useMedical History Anemia, unspecified typeMedical HistoryHyperlipidemia type IIMedical History Acute seasonal allergic rhinitis due to pollenMedical HistoryBenign prostatic hyperplasia with lower urinary tract symptomsSurgical HistoryTRANSRECTAL ULTRASOUND (TRUS) WITH [id number] HistoryLHC PTCA [id number] Hospitalization HistorySEE SURGICAL [facility] [employer] Other Hospital course Narrative No data available for this section [facility] Hospital Discharge instructions No data available for this section [facility] Hospital Discharge instructionsAdditional Instructions DISCHARGE INSTRUCTIONS FOR UPPER ENDOSCOPY WHAT TO EXPECT: - You may feel full, gassy or cramping after your procedure. In some cases, this may be from a few hours to a day. Walking may help relieve the discomfort. - Your throat may feel sore today from the scope that the doctor passed through your throat to visualize your stomach. Take a throat lozenge or suck on ice to ease the discomfort. - You may notice some streaks of blood in your sputum if the doctor has taken a biopsy. - You should begin to recover from anesthesia within 1 hour of the procedure, however may feel groggy for the next 24 hours. DO's AND DON'Ts: - Call your doctor right away if you have a hard abdomen, severe pain, vomiting or if you cough up large amounts of blood. - Call your doctor if you develop any rashes, hives or difficulty breathing. - If you take 81 mg aspirin for your heart it is safe to resume this medication. - If you take other blood thinner medications your doctor will instruct you when these can safely be resumed. - Do NOT drive for 24 hours. - Do NOT operate machinery such as power tools, lawn mowers, snow blowers, sewing machines, etc. for 24 hours. - Avoid alcoholic beverages and drugs for allergies, nerves, or sleep. - Do NOT stay alone. Do NOT leave your child unattended. - Do NOT make important personal or business decisions or sign any legal documents. - Eat solid foods and drink liquids in smaller amounts than usual until normal appetite returns. If you should experience an upset stomach, liquids high in sugar content (soda, Wilmar-Aid, non-acid juices) are recommended. - Do NOT smoke. - Do take it easy today. You need not stay in bed, but avoid strenuous activities such as jogging or working out. DISCHARGE INSTRUCTIONS FOR COLONOSCOPY WHAT TO EXPECT: - You may feel full, gassy or cramping after your procedure. In some cases, this may be from a few hours to a day. Walking may help relieve the discomfort. - If you have polyp(s) removed you may note some minor bloody discharge after your first bowel movements. - You should begin to recover from anesthesia within 1 hour of the procedure, however may feel groggy for the next 24 hours. DO's AND DON'Ts: - Call your doctor right away if you have a hard abdomen, sever pain, are passing lots of bright red blood or clots. - Call your doctor if you develop any rashes, hives or difficulty breathing. - Let your doctor know if you have not had a bowel movement by 3 days after your procedure. - If you take 81 mg aspirin for your heart it is safe to resume this medication. - If you take other blood thinner medications your doctor will instruct you when these can safely be resumed. - Do NOT drive for 24 hours. - Do NOT operate machinery such as power tools, lawn mowers, snow blowers, sewing machines, etc. for 24 hours. - Avoid alcoholic beverages and drugs for allergies, nerves, or sleep. - Do NOT stay alone. Do NOT leave your child unattended. - Do NOT make important personal or business decisions or sign any legal documents. - Eat solid foods and drink liquids in smaller amounts than usual until normal appetite returns. If you should experience an upset stomach, liquids high in sugar content (soda, Wilmar-Aid, non-acid juices) are recommended. - You can resume normal activities tomorrow. FOLLOW UP & RECOMMENDATIONS: - You do not need any further colonoscopies for colorectal cancer screening. - Notify the doctor if you have any problems. - Follow-up with the GI office as needed. - Follow up with PCP. - Office number [phone].[facility] Work Phone: Progress note No data available for this section [facility] reason for referral (narrative)No reason for referral information availableCity Hospital Work Phone: Summary Purpose Family History No Family History Records Found Relationship Condition Age at Onset Recorded Date/T allan maternal grandfather Diabetes mellitus Unknown paternal grandmotherDiabetes mellitusUnknownfatherHeart diseaseUnknownMyocardial infarctionUnknownHistory of coronary artery stent placementUnknown Advance Directives No Advanced Directives Records Found Advance Directive Response Recorded Date/ Time Advance [...] 1:26 pm ASHD (arteriosclerotic heart disease) Se pt2024 1:41pm Chronic kidney disease May 28 025 1:41pm Chronic venous insufficiency May 192024 1:41pm Diabetes mellitus with hyperglycemia Sep 2024 1:41pm Elevated cholesterol May 28 1:41pm [...] 2025 1:26 pm ASHD (arteriosclerotic heart disease) pt2024 1:41pm Chronic kidney disease May 28 025 1:41pm Chronic venous insufficiency May 192024 1:41pm Diabetes mellitus with hyperglycemia May 1:41pm Elevated cholesterol May 28 1:41pm Pernicious anemia May 28, 2025 1:41pm Primary hypertension May 28 1:41pm Prostate cancer May 28, 2025 1:41pm Weight loss May 28, 2025 1:41pm ASHD (arteriosclerotic heart disease) Se pt2024 1:25pm Chronic kidney disease June 03, 2 025 1:25pm Diabetes mellitus with hyperglycemia May 1:25pm Elevated cholesterol June 03 1:25pm Pernicious anemia June 03, 2025 1:25pm Primary hypertension June 03 1:25pm Prostate cancer June 03, 2025 1:25pm Weight loss June 03, 2025 1:25pm Laceration of upper arm without complica tion June 03, 2025 1:25pm Chief Complaint Admit Date 3 Week F/U April 16, 2025 1:26 pm 6 week check up May 28, 2025 1:41pm Amb Documentation May 29, 2025 8:28am Suture Removal June 03, 2025 1:25pm Amb Documentation June 11, 2025 11:45am [facility] ER f/u fall June 23, 2025 2: 29pm Reason for Visit Admit Date ASHD (arteriosclerotic [...] ptember 2024 1:41pm Chronic kidney disease May 28, 2 025 1:41pm Chronic venous insufficiency May 192024 1:41pm Diabetes mellitus with hyperglycemia [facility] [place] 1:41pm Elevated cholesterol May 28 1:41pm Pernicious anemia May 28, 2025 1:41pm Primary hypertension May 28 1:41pm Prostate cancer May 28, 2025 1:41pm Weight loss May 28, 2025 1:41pm Abdominal pain June 03, 2025 1:25pm ASHD (arteriosclerotic heart disease) Se ptember 2024 1:25pm Chronic kidney disease June 03, 2 025 1:25pm Diabetes mellitus with hyperglycemia Sep 2024 1:25pm Pernicious anemia June 03, 2025 1:25pm Primary hypertension June 03 1:25pm Prostate cancer June 03, 2025 1:25pm Screening for colon cancer May 1:25pm Weight loss June 03, 2025 1:25pm Laceration of upper arm without complica tion June 03, 2025 1:25pm ASHD (arteriosclerotic heart disease) Oc tober 2024 2:29pm Cerebral atherosclerosis June 23 2:29pm Chronic kidney disease June 23, 2025 2:29pm Chronic venous insufficiency June 2:29pm Diabetes mellitus with hyperglycemia Oct radha 2024 2:29pm Elevated cholesterol June 23, 2025 2 :29pm Pernicious anemia June 23, 2025 2: 29pm Primary hypertension June 23, 2025 2 :29pm Prostate cancer June 23, 2025 2: 29pm Weight loss June 23, 2025 2: 29pm Chief Complaint Admit Date 3 Week F/U April 16, 2025 1:26 pm 6 week check up May 28, 2025 1:41pm Amb Documentation May 29, 2025 8:28am Suture Removal June 03, 2025 1:25pm Amb Documentation June 11, 2025 11:45am [facility] ER f/u fall June 23, 2025 2: 29pm Screening/weight loss/epigastric pain Oc tober 2024 7:09am Reason for Visit Admit Date ASHD (arteriosclerotic heart disease) Ju ly 2024 1:26pm Chronic kidney disease April 16, 2025 1 :26pm Chronic venous insufficiency April 16, 2025 1:26pm Diabetes mellitus with hyperglycemia Raphael 2024 1:26pm Elevated cholesterol April 16, 2025 1:2 6pm Pernicious anemia April 16, 2025 1:26 pm Primary hypertension April 16, 2025 1:2 6pm Prostate cancer April 16, 2025 1:26 pm Weight loss April 16, 2025 1:26 pm ASHD (arteriosclerotic heart disease) Se ptember 2024 1:41pm Chronic kidney disease May 28, 2 025 1:41pm Chronic venous insufficiency May 192024 1:41pm Diabetes mellitus with hyperglycemia Sep tember 2024 1:41pm Elevated cholesterol May 28 1:41pm Pernicious anemia May 28, 2025 1:41pm Primary hypertension May 28 1:41pm Prostate cancer May 28, 2025 1:41pm Weight loss May 28, 2025 1:41pm Abdominal pain June 03, 2025 1:25pm ASHD (arteriosclerotic heart disease) Se ptember 2024 1:25pm Chronic kidney disease June 03, 2 025 1:25pm Diabetes mellitus with hyperglycemia Sep tember 2024 1:25pm Pernicious anemia June 03, 2025 1:25pm Primary hypertension June 03 1:25pm Prostate cancer June 03, 2025 1:25pm Screening for colon cancer May 1:25pm Weight loss June 03, 2025 1:25pm Laceration of upper arm without complica tion June 03, 2025 1:25pm ASHD (arteriosclerotic heart disease) Oc tober 2024 2:29pm Cerebral atherosclerosis June 23 2:29pm Cholelithiasis June 23, 2025 2: 29pm Chronic kidney disease June 23, 2025 2:29pm Chronic venous insufficiency June 2:29pm Diabetes mellitus with hyperglycemia Oct radha 2024 2:29pm Elevated cholesterol June 23, 2025 2 :29pm Primary hypertension June 23, 2025 2 :29pm Prostate cancer June 23, 2025 2: 29pm Weight loss June 23, 2025 2: 29pm Additional Source Comments (unrecognized sect ion and content) No Status Records FoundNo Status Records FoundNo Status Records FoundNo Status Records FoundNo Status Records FoundNo Status Records Found INFORMATION SOURCE (unrecogn ized section and content) DATE CREATED AUTHOR 04/06/2018 [facility] DATE CREATED AUTHOR AUTHOR'S ORGANIZ ATION 01/09/2023 [facility] DATE CREATED AUTHOR AUTHOR'S ORGANIZ ATION 03/07/[address] [facility] DATE CREATED AUTHOR AUTHOR'S ORGANIZ ATION 05/16/2024 [facility] DATE CREATED AUTHOR AUTHOR'S ORGANIZ ATION 06/27/2025 [facility] DATE CREATED AUTHOR AUTHOR'S ORGANIZ ATION 07/10/2025 [facility] Source Comments (unrecognize d section and content) In the event this informatio n is protected by the Federal Confidentiality of Alcohol and Drug Abuse Patient Records regulations: The Federal rules restrict any use of the information to criminally investigate or prosecute any alcohol or drug abuse patient.[facility] the event this information is protected by the Federal Confidentiality of Alcohol and Drug Abuse Patient Records regulations: The Federal rules restrict any use of the information to criminally investigate or prosecute any alcohol or drug abuse patient.[facility] the event this information is protected by the Federal Confidentiality of Alcohol and Drug Abuse Patient Records regulations: The Federal rules restrict any use of the information to criminally investigate or prosecute any alcohol or drug abuse patient.[facility] HospitalIn the event this information is protected by the Federal Confidentiality of Alcohol and Drug Abuse Patient Records regulations: The Federal rules restrict any use of the information to criminally investigate or prosecute any alcohol or drug abuse patient.[facility] Hospital[facility] the event this information is protected by the Federal Confidentiality of Alcohol and Drug Abuse Patient Records regulations: The Federal rules restrict any use of the information to criminally investigate or prosecute any alcohol or drug abuse patient.[facility] Hospital[facility] the event this information is protected by the Federal Confidentiality of Alcohol and Drug Abuse Patient Records regulations: The Federal rules restrict any use of the information to criminally investigate or prosecute any alcohol or drug abuse patient.[facility] Hospital[facility] the event this information is protected by the Federal Confidentiality of Alcohol and Drug Abuse Patient Records regulations: The Federal rules restrict any use of the information to criminally investigate or prosecute any alcohol or drug abuse patient.[facility] HospitalIn the event this information is protected by the Federal Confidentiality of Alcohol and Drug Abuse Patient Records regulations: The Federal rules restrict any use of the information to criminally investigate or prosecute any alcohol or drug abuse patient.[facility] Reason for Visit (unrecogniz ed section and content) ReasonCommentsProstate CancerReasonCommentsProstate CancerFollow upReasonOnset DateCommentsMed Ouaouy7807/02/2024easonOnset DateCommentsMed Ctxuke5207/03/2024 ReasonCommentsCataract Care Teams (unrecognized sec tion and content) Team Status: Active Member Role Status Dates Nico Lino DO Primary Care Provider Active Team Status: Inactive Member Role Status Dates Nico Lino DO Primary Care Provider Active Start: April 16, 2025 End: April 16tammy Lino , DOAttending ProviderActiveStart: April 16, 2025 End: April 16, 2025 Team Status: Inactive Member Role Status Dates Nico Lino DO Primary Care Provider Active Start: May 28, 2025 End: May 28tammy Lino , DOAttending ProviderActiveStart: May 28, 2025 End: May 28, 2025 Team Status: Active Member Role Status Dates Nico Lino DO Primary Care Provider Active Start: May 29, 2025 Mabel Murdock CMAAttending ProviderActiveStart: May 29, 2025 Team Status: Active Member Role Status Dates Nico Lino DO Primary Care Provider Active Start: June 02, 2025 Nico Lino DOAttending ProviderActiveStart: June 02, 2025 Team Status: Inactive Member Role Status Dates Nico Lino DO Primary Care Provider Active Start: June 03, 2025 End: June 03enseng Lino , DOAttending ProviderActiveStart: June 03, 2025 End: June 03, 2025 Team Status: Active Member Role Status Dates Nico Lino DO Primary Care Provider Active Start: June 10, 2025 Brigid Avila MDAttending ProviderActiveStart: June 10, 2025 Team Status: Active Member Role Status Dates Nico Lino DO Primary Care Provider Active Start: June 11, 2025 Hao Woodall ProviderActiveStart: June 11, 2025 Team Status: Inactive Member Role Status Dates Nico Lino DO Primary Care Provider Active Start: June 23, 2025 End: June 23enseng Lino , DOAttending ProviderActiveStart: June 23, 2025 End: June 23, 2025 Team Status: Active Member Role Status Dates Nico Lino DO Primary Care Provider Active Start: March 18, 2025 Nico Lino , Attending ProviderActiveStart: March 18, 2025 Team Status: Inactive Member Role Status Dates Nico Lino DO Primary Care Provider Active Start: March 24, 2025 End: March 24hayderzonia Lino Attending ProviderActiveStart: March 24, 2025 End: March 24, 2025 Team Status: Inactive Member Role Status Dates Nico Lino DO Primary Care Provide r, Attending Provider Active Start: November 21, 2024 End: November 21, 2024Team MemberRelationshipSpecialtyStart DateEnd Nico Rodriguez, DO [address] [place] [address] PCP - GeneralInternal Medicine02/10/21 Joseph Vasques Jr. [address] [place] [id number] Urology02/10/21Team MemberRelationshipSpecialtyStart DateEnd Nico Rodriguez, DO [address] [place] [address] PCP - GeneralInternal Medicine02/10/21 Joseph Vasques Jr. [address] [place] [id number] Urology02/10/21Team MemberRelationshipSpecialtyStart DateEnd Date Nico Lino, DO [address] [place] [address] PCP - GeneralInternal Medicine02/10/21 Joseph Vasques Jr. [address] [place] [address] Urology02/10/21Team MemberRelationshipSpecialtyStart DateEnd Nico Rodriguez DO [address] [place] [address] PCP - GeneralInternal Medicine02/10/21 Joseph Vasques Jr. [address] [place] [phone] Urology02/10/21Team MemberRelationshipSpecialtyStart DateEnd Date Nico Lino DO [address] [place] [address] PCP - GeneralInternal Medicine02/10/21 Joseph Vasques Jr. [address] [place] [place] [id number] Urology02/10/21 Team Status: Active Member Role Status Dates Nico Lino DO Primary Care Provider Active Start: February 14, 2024 Ketan Bartlett MDAttformerly [facility], [facility] ProviderActiveStart: February 14, 2024 Team Status: Active Member Role Status Dates Nico Lino DO Primary Care Provide r, Attending Provider Active Start: March 26, 2024 Team Status: Inactive Member Role Status Dates Nico Lino DO Primary Care Provide r, Attending Provider Active Start: March 27, 2024 End: March 27, 2024Team MemberRelationshipSpecialtyStart DateEnd Date Nico Lino DO [address] [place] [address] PCP - GeneralInternal Medicine02/10/21 Joseph Vasques Jr. [address] [place] [phone] Urology02/10/21Team MemberRelationshipSpecialtyStart DateEnd Date Nico Lino MD [address] [place] [phone] PCP - GeneralInternal Medicine05/14/24Team MemberRelationshipSpecialtyStart Date End Date Nico Lino MD [address] [place] [address] [facility] Team Status: Active Member Role Status Dates Nico Lino DO Primary Care Provide r, Attending Provider Active Start: July 24, 2024 Team Status: Inactive Member Role Status Dates Nico Lino DO Primary Care Provide r, Attending Provider Active Start: July 30, 2024 End: July 30, 2024Team MemberRelationshipSpecialtyStart DateEnd Date Nico Lino DO [address] [place] [address] PCP - GeneralInternal Medicine02/10/21 Joseph Vasques Jr. [address] [place] [phone] Urology02/10/21Team MemberRelationshipSpecialtyStart DateEnd Date Nico Lino MD [address] [place] [phone] [facility] Team Status: Active Member Role/Relationship Status Dates Nico Lino DO Primary Care Provider Active Team Status: Inactive Member Role/Relationship Status Dates Nico Lino DO Primary Care Provider Active Start: April 16, 2025 End: April 16tammy Lino DOAttending ProviderActiveStart: April 16, 2025 End: April 16, 2025 Team Status: Inactive Member Role/Relationship Status Dates Nico Lino DO Primary Care Provider Active Start: May 28, 2025 End: May 28enseng Lino , DOAttending ProviderActiveStart: May 28, 2025 End: May 28, 2025 Team Status: Active Member Role/Relationship Status Dates Nico Lino , Primary Care Provider Active Start: May 29, 2025 Mabel Murdock LEXIAttending ProviderActiveStart: May 29, 2025 Team Status: Active Member Role/Relationship Status Dates Nico Lino , Primary Care Provider Active Start: June 02, 2025 Nico Lino , DOAttending ProviderActiveStart: June 02, 2025 Team Status: Inactive Member Role/Relationship Status Dates Nico Lino , Primary Care Provider Active Start: June 03, 2025 End: June 03enseng Lino , DOAttending ProviderActiveStart: June 03, 2025 End: June 03, 2025 Team Status: Active Member Role/Relationship Status Dates Nico Lino Primary Care Provider Active Start: June 10, 2025 Brigid Santiago Avila , MDAttending ProviderActiveStart: June 10, 2025 Team Status: Active Member Role/Relationship Status Dates Nico Lino Primary Care Provider Active Start: June 11, 2025 Mabel Murdock LEXIAttending ProviderActiveStart: June 11, 2025 Team Status: Inactive Member Role/Relationship Status Dates Nico Lino , Primary Care Provider Active Start: June 23, 2025 End: June 23enseng Lino , DOAttending ProviderActiveStart: June 23, 2025 End: June 23, 2025 Team Status: Active Member Role/Relationship Status Dates Nico Lino , Primary Care Provider Active Start: July 09, 2025 Ariel Gonzalezending ProviderActiveStart: July 09, 2025 Yokasta Gonzalez ProviderActiveStart: July 09, 2025 Goals (unrecognized section and content) Goals [...] BE BASED ON THE PRIMARY CLINICAL RECORDS. [facility] [employer] [facility]. provides no warranty or guarantee of the accuracy or completeness of information in this document.
[2025-08-18 15:42] LABS: Prostate Specific Antigen Dx 3.82 ng/mL (<=4.00)
== END 2025-08-18 13:54 | disposition home or self-care (01) ==
PROVIDERS: PCP Internal Medicine; Visit Provider Radiology Radiation Oncology
DX: C61 Malignant neoplasm of prostate (principal)
CPT/HCPCS: 36415; 84153

== ENCOUNTER 2025-08-18 14:03 | Outpatient (OUT) | payer MEDICARE, SELFPAY ==
[2025-08-18 14:34] LABS: Hematocrit 38.4 % (42.0-54.0); Hemoglobin 12.5 g/dL (14.0-18.0); Immature Granulocytes Abs Auto 0.03 10^3/uL (0.00-0.03); Immature Granulocytes Pct Auto 0.3 % (0.0-0.5); Lymphocytes Absolute Auto 2.0 10^3/uL (1.2-3.8); Mean Corpuscular HGB Conc 32.6 g/dL (29.9-35.2); Mean Corpuscular Hemoglobin 29.1 pg (25.9-34.0); Mean Corpuscular Volume 89.3 fL (80.0-94.0); Platelet Count 401 10^3/uL (150-450); Red Blood Count 4.30 10^6/uL (4.70-6.10); White Blood Count 10.3 10^3/uL (4.0-11.0)
--- OUTSIDE RECORDS SUMMARY | 2025-08-18 14:50 | XMS_ITS | CCD ---
Author Organization [facility] Care Team Providers Care Gas Dispatcher Name Role Phone PHYSICIAN, DEFAULT Unavailable Unavailable [...] Provider Nico Lino DO Primary Care Provider [phone] Nico Lino DO Attending Provider Mabel Murdock CMA Attending Provider Unavaila ble Nico Lino DO Primary Care Provider Nico Lino DO Attending Provider Brigid Avila MD Attending Provider [phone] NICO LINO Primary Care Unavailable Ronda BARTLETT Attending Unavailable NICO LINO Primary Care Unavailable Ronda BARTLETT Attending Unavailable Ronda BARTLETT Referring Unavailable ENGRUSTYR G DIMITRY Attending Unavailable NICO LINO Primary Care Unavailable Tevin Peralta MD Attending Provider [phone] Tevin Peralta MD Other Provider [phone] Tevin Peralta Attending Unavailable Tevin Peralta Admitting Unavailable Nico Lino Primary Care Unavailable Allergies Allergy ClassificationReported Allergen(s)Allergy TypeDate of OnsetReaction(s) Facility (1 source)Shellfish Containing ProductsDrug allergy (disorder)31-38-0338[facility] (3 sources)Seafood; Translations: [Seafood]Drug allergySelect [facility] ([facility] source)patient allergy list reviewed by nurse or physiciaPropensity to adverse yruxamclq39-06-0822Fvlzved:[employer] Other (1 source)Shrimp product; Translations: [Shrimp]Propensity to adverse reactions (disorder)[facility] Repository (1 source)No Known Medication Allergies; Translations: [No Known Medication Allergies]Propensity to adverse reactions (disorder)[facility] Repository Medications Current Medications MedicationDrug Class(es)DatesSig (Normalized)Sig (Original)aspirin 81 mg delayed release oral tablet (20 sources)Platelet Aggregation Inhibitor, Nonsteroidal Anti-inflammatory Drug Start: 63-37-4490kohz 1 tablet by mouth once dailyAspirin 81 mg tablet,delayed release (DR/EC) Active 81 MG PO Daily November 23, 2023 1:00am Complies with drug therapyComment on above:Take by mouth.atenolol 25 mg oral tablet (20 sources)beta-Adrenergic BlockerStart: 76-48-0918oato 1 tablet by mouth once dailyAtenolol 25 mg tablet Active 25 MG PO Daily 90 90 3 April 16, 2025 1:48pm On Hold: low BP Complieswith drug therapyStart: 01-01-2024 End: 28-43-8017wzfg 1 tablet by mouth once dailyAtenolol 50 mg tablet Discontinued 0 .ROUTE .COMPLEX 90 3 January 19, 2025 3:04pm April 16, 2025 1:50pm TAKE 1 TABLET BY MOUTH EVERY DAYStart: 01-14-2021 End: 20-58-7899lupj 1 tablet by mouth once dailyAtenolol 50 mg tablet Discontinued 50 MG PO Daily November 23, 2023 1:00am January 01, 2024 9:26am Comment on above:Take 50 mg by mouth.calcium carbonate 1500 mg / cholecalciferol 200 unt oral tablet (2 sources)Vitamin DStart: 34-87-5871vori 1 tablet by mouth once dailycalcium (as carbonate)-vitamin D 600 mg-200 units oral tablet 1 tab(s), Oral, Daily, Prophylaxis Start Date: 06/16/21 Status: Orderedcyanocobalamin, vitamin B-12, (VITAMIN B12 ORAL) (3 sources)cyanocobalamin, vitamin B-12, (VITAMIN B12 ORAL) Take by mouth. Activecyanocobalamin, vitamin B-12, (VITAMIN B12 ORAL) Take by mouth. 0 Active Fiber (1 source)Start: 71-54-8201tiwj 1 capsule by mouth once dailyFiber capsule Active 1 CAP PO Daily June 25, 2025 12:00am Complies with drug therapyfolic acid 1 mg oral tablet (20 sources)Start: 95-63-7299fdfu 1 tablet by mouth once dailyFolic Acid 1 mg tablet Active 0 .ROUTE .COMPLEX 90 3 August 19, 2024 8:31am TAKE 1 TABLET BY MOUTH EVERY DAY Complies with drug therapyStart: 11-23-2023 End: 79-64-3183bwwc 1 tablet by mouth once dailyFolic Acid 1 mg tablet Discontinued 1 MG PO Daily November 23, 2023 1:00am August 19, 2024 8:31amfolic acid 0.4 mg / vitamin b12 0.5 mg oral tablet (1 source)Vitamin C34Pnzwh: 07-24-7705zyqf 1 tablet by mouth once dailyVitamin G29-Pjban Acid 500-400 mcg tablet Active 1 TAB PO Daily June 25, 2025 12:00am administer with a meal Complies with drug therapyglipiZIDE 5 mg oral tablet (11 sources)SulfonylureaStart: 03-24-2025 End: 26-63-0199abob 1 tablet by mouth once dailyGlipizide 5 mg tablet Active 5 MG PO Daily 90 90 3 April 16, 2025 1:50pm Complies with drug therapyketorolac tromethamine 5 mg/ml ophthalmic solution (3 sources)Nonsteroidal Anti-inflammatory Drug, Cyclooxygenase InhibitorStart: 07-02-2024 End: 73-84-1756cmvx 1 drop(s) into the eye(s) in the morningketorolac (Acular) 0.5 % ophthalmic solution Indications: Age-related nuclear cataract of both eyes Administer 1 drop into affected eye(s) in the morning and 1 drop before bedtime. 5 mL 1 07/02/2024 08/01/2024 ActiveStart: 05-14-2024 End: 36-79-3062euox 1 drop(s) into the eye(s) in the morningketorolac (Acular) 0.5 % ophthalmic solution Indications: Age-related nuclear cataract of both eyes Administer 1 drop into affected eye(s) in the morning and 1 drop before bedtime. 5 mL 1 05/14/2024 06/13/2024 Activelisinopril 10 mg oral tablet (20 sources)Angiotensin Converting Enzyme InhibitorStart: 01-01-2024 End: 27-82-6022rwwk 1 tablet by mouth once dailyLisinopril 10 mg tablet Active 0 .ROUTE .COMPLEX 90 3 January 19, 2025 3:03pm On Hold: hypotension TAKE 1 TABLET BY MOUTH EVERY DAY Complies with drug therapyStart: 01-14-2021 End: 67-74-5893plcd 1 tablet by mouth once dailyLisinopril 10 mg tablet Discontinued 10 MG PO Daily November 23, 2023 1:00am January 01, 2024 9:26am Comment on above:Take 10 mg by mouth.loperamide hydrochloride 2 mg oral tablet (10 sources)Opioid AgonistStart: 50-19-4170tyga 1 tablet by mouth every four hours as neededImmodium A-D 2 mg Tab 2 mg = 1 tab(s), Oral, q4hr, PRN for loose stool Start Date: 06/16/21 Status: Orderedloperamide HCl (IMODIUM ORAL) Take by mouth. Activeloperamide HCl (IMODIUM ORAL) Take by mouth. 0 ActiveComment on above:Take by mouth.ofloxacin 3 mg/ml ophthalmic solution (3 sources)Quinolone AntimicrobialStart: 07-02-2024 End: 01-19-7045zxke 1 drop(s) into the eye(s) five times dailyofloxacin (Ocuflox) 0.3 % ophthalmic solution Indications: Age-related nuclear cataract of both eyes Administer 1 drop into the right eye 5 (five) times a day for 1 day Starting 1 day before surgery,continue after surgery as directed 5 mL 1 07/02/2024 07/03/2024 ActiveStart: 05-14-2024 End: 48-14-3068hknb 1 drop(s) into the eye(s) five times dailyofloxacin (Ocuflox) 0.3 % ophthalmic solution Indications: Age-related nuclear cataract of both eyes Administer 1 drop into the right eye 5 (five) times a day for 1 day Starting 1 day before surgery,continue after surgery as directed 5 mL 1 05/14/2024 05/15/2024 Activepantoprazole 40 mg delayed release oral tablet (10 sources)Proton Pump InhibitorStart: 03-25-2025 End: 00-87-1919Vbszifqmuizx 40 mg tablet,delayed release (DR/EC) Active 40 MG PO Daily 90 90 3 April 16, 2025 1:52pm take on empty stomach, 30 minutes prior to bkfst Complies with drug therapyprednisoLONE acetate 10 mg/ml ophthalmic suspension (6 sources)CorticosteroidStart: 93-54-6923hcqapobtQWUI acetate (PRED FORTE) 1 % ophthalmic suspension Administer 1 drop into both eyes four times a day (morning, noon, evening, bedtime) for 14 days. 07/03/2024 ActiveStart: 07-02-2024 End: 98-68-1357xlheperaWNPH acetate (Pred-Forte) 1 % ophthalmic suspension Indications: Age-related nuclear cataract of both eyes Administer 1 drop into both eyes in the morning and 1 drop at noon and 1 drop in theevening and 1 drop before bedtime. Do all this for 14 days. 5 mL 1 07/03/2024 07/17/2024 Active Start: 05-14-2024 End: 11-67-2464riykfyrkDQXF acetate (Pred-Forte) 1 % ophthalmic suspension Indications: Age-related nuclear cataract of both eyes Administer 1 drop into both eyes in the morning and 1 drop at noon and 1 drop in theevening and 1 drop before bedtime. Do all this for 14 days. 5 mL 1 05/14/2024 05/28/2024 Active propylene glycol 6 mg/ml ophthalmic solution (8 sources)Start: 10-05-3079Vbcutodgm Glycol (Systane Complete) 0.6 % drops Active 1 DROPS EYE-BOTH Four times daily as needed for dry eye(s) July 30, 2024 1:00am Complies with drug therapyStart: 51-87-0274Nvahpzytq Glycol (Systane Complete) 0.6 % drops Active 1 DROPS EYE-BOTH Four times daily as needed N ovember 2023 1:00amSod Picosulf-Mag Ox-Citric Ac (2 sources)Start: 22-34-0510ffct 1 mL by mouth once dailyStart: 10-55-7958nyvw 1 mL by mouth once dailySod Picosulf-Mag Ox-Citric Ac (Clenpiq) 10 mg-3.5 gram- 12 gram/175 mL solution Active 175 ML PO Daily 1 June 17, 2025 12:00am please follow instructions provided by Dr. Peralta's office. Complies with drug therapytamsulosin hydrochloride 0.4 mg oral capsule (6 sources)alpha-Adrenergic BlockerStart: 06-09-2022 End: 06-72-9613zwss 1 capsule by mouth once dailytamsulosin 0.4 mg Cap 0.4 mg = 1 cap(s), Oral, Daily, # 30 cap(s), Refills(s) 11, Pharmacy: [id number], 173, cm, 11/02/21 11:02:00 EST, Height/Length Dosing, 99.9, kg, 05/03/22 10:56:00 EDT, Weight Dosing Start Date: 06/09/22 Status: OrderedComment on above: Take 0.4 mg by mouth once daily.vitamin B12 (1 source)Vitamin T91Avtps: 72-18-2037wmrn 1 tablet under the tongue once daily Cyanocobalamin 1000 MCG 1 tablet under the tongue and allow to dissolve Sublingual Once a day for 90 days Jul, Active Completed/Discontinued Medications MedicationDrug Class(es)DatesSig (Normalized)Sig (Original)atorvastatin 80 mg oral tablet (20 sources)HMG-CoA Reductase InhibitorStart: 27-64-9278kuslvyqrrynp (LIPITOR) 40 mg tablet Take 40 mg by mouth. 01/14/2021 ActiveStart: 01-14-2021 End: 49-82-9984jsof 1 tablet by mouth once daily at bedtimeAtorvastatin 80 mg tablet Discontinued 80 MG PO Daily at bedtime November 23, 2023 1:00am March 25, 2024 7:02amComment on above:Take 80 mg by mouth.Take 40 mg by mouth.B-12 - up to 1000 mcg (4 sources)Start: 72-38-6808Q-12 - up to 1000 mcg Nov, 1000 mcgCalcium (1 source)Phosphate Binder, Calcium End: 08-58-4758FPEUCOT ORAL Take by mouth. 0 02/17/2022 Discontinued (Discontinued by another Health Care Provider)Comment on above:Take by mouth. celecoxib 200 mg oral capsule (14 sources)Nonsteroidal Anti-inflammatory DrugStart: 11-21-2024 End: 49-56-1756hblh 1 capsule by mouth once dailyCelecoxib 200 mg capsule Discontinued 200 MG PO Daily November 21, 2024 11:28am May 28, 2025 2:16pmcholecalciferol, vitamin D3, (VITAMIN D3 ORAL) (1 source) End: 82-20-9114glzwicwckvypqdq, vitamin D3, (VITAMIN D3 ORAL) Take by mouth. 0 02/17/2022 Discontinued (Discontinued by another Health Care Provider)Comment on above:Take by mouth.glimepiride 4 mg oral tablet (20 sources)SulfonylureaStart: 07-20-2024 End: 95-63-0453mmnc 1 tablet by mouth before breakfastGlimepiride 4 mg tablet Discontinued 0 .ROUTE .COMPLEX 90 3 July 20, 2024 7:49am April 16, 2025 1:50pm TAKE 1 TABLET BY MOUTH IN THE MORNING 30 MINUTES BEFORE BREAKFASTStart: 11-23-2023 End: 42-49-8539xagb 2 mg by mouth once daily in the morningGlimepiride 4 mg tablet Discontinued 2 MG PO Every morning November 23, 2023 1:00am July 20, 2024 7:49amStart: 10-49-8833ehwe 2 mg by mouth once daily in the morning Glimepiride Active 2 MG PO Every morning November 23, 2023 1:00amStart: 03-01-2021 glimepiride (AMARYL) 2 mg tablet 03/01/2021 ActiveStart: 35-97-6397vsby 1 tablet by mouth once dailyglimepiride 1 [...] (3 sources)Gonadotropin Releasing Hormone Receptor Agonist End: 78-31-3076iovaijtvyg acetate (LUPRON DEPOT INTRAMUSC.) Inject intramuscularly. 0 08/17/2023 Discontinued (Course of therapy completed) leuprolide acetate (LUPRON DEPOT INTRAMUSC.) Inject intramuscularly. 0 Active Comment on above:Inject intramuscularly.metFORMIN hydrochloride 1000 mg oral tablet (20 sources)BiguanideStart: 04-17-2024 End: 04-06-0036ydgc 1 tablet by mouth twice daily at dinnerMetformin 1,000 mg tablet Discontinued 0 .ROUTE .COMPLEX 180 3 April 17, 2024 12:50pm May 28, 2025 2:14pm TAKE 1 TABLET BY MOUTH 2 TIMES A DAY with breakfast and evening mealStart: 11-23-2023 End: 65-15-2141qfmd 1 tablet by mouth twice daily at mealtimeMetformin 1,000 mg tablet Discontinued 1000 MG PO Twice daily with meals November 23, 2023 1:00am April 17, 2024 12:50pmStart: 01-14-2021 End: 44-74-4139umwf 1 tablet by mouth twice dailymetformin 1000 mg oral tablet 1,000 mg = 1 tab(s), Oral, BID, Refills(s) 0, Blood glucose Start Date: 01/14/21 Status: Orderedtake 1 tablet by mouth every twenty-four hoursmetFORMIN HCl 1000 MG 1 tablet with a meal Orally Once a day ActiveComment on above:twice daily. sertraline 100 mg oral tablet (20 sources)Serotonin Reuptake InhibitorStart: 04-09-2024 End: 01-97-8352kbdu 1 tablet by mouth at bedtimeSertraline 100 mg tablet Discontinued 0 .ROUTE .COMPLEX 90 0 October 28, 2024 10:06am February 03, 2025 1:10pm TAKE 1 TABLET BY MOUTH AT BEDTIMEStart: 01-14-2021 End: 72-97-1014fwlz 1 tablet by mouth once daily at [...] anxiety disorder]ChronicAppendicitis and other appendiceal conditions (2 sources)Lgahhorqbawk17-15-3912KaatetpsCjgvdtl tract disease (2 sources)Biliary calculus; Translations: [Calculus of gallbladder without cholecystitis without obstruction]72-13-0947LixbbufaDdmdtz of prostate (20 sources)Malignant tumor of prostate; Translations: [Malignant neoplasm of prostate]Onset: 95-31-6269HyoyfigUeahson on above:TRUS/Bx 2020Gleason 4+3, group 3EBT, Brachytherapy and ADTTRUS/Bx 2020,Asaf 4+3, group 3,EBT, Brachytherapy and ADTCataract (6 sources)Bilateral age-related nuclear cataracts; Translations: [Age-related nuclear cataract, bilateral]Onset: 511272-92-7329AqokytzNowwofm kidney disease (20 sources)Chronic kidney disease; Translations: [Chronic kidney disease, unspecified]93-43-4657WbksklzMaumojg on above:Renal US: no tumor, stones or obstruction - oronary atherosclerosis and other heart disease (20 sources)Coronary occlusion; Translations: [Coronary arteriosclerosis]Onset: 630517-17-2362AlzyhrqEsasaxcpok and other anemia (5 sources)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; Translations: [Folate deficiency anemia, unspecified]EpisodicDeficiency and other anemia (5 sources)Anemia; Translations: [Anemia, unspecified]EpisodicDeficiency and other anemia (20 sources)Pernicious anemia; Translations: [Vitamin B12 deficiency anemia due to intrinsic factor deficiency]44-43-7399LxwqaykfTjildouzfl and other anemia (2 sources)Vitamin B12 deficiency anemia due to intrinsic factor deficiency EpisodicDeficiency and other anemia (1 source)Folate deficiency anemia, unspecifiedEpisodicDeficiency and other anemia (9 sources)Nutritional anemia; Translations: [Folate deficiency anemia, unspecified]10-51-4977MbsoeiagJlwiorwu mellitus with complications (20 sources)Hyperglycemia due to type 2 diabetes mellitus; Translations: [Type 2 diabetes mellitus with hyperglycemia]Onset: 43-94-5922MxxtuelJnjcqerh mellitus without complication (2 sources)Diabetes -36-5597BsgnuhlEezdruogl of lipid metabolism (20 sources)Pure hypercholesterolemia; Translations: [Familial hypercholesterolemia]Onset: 34-63-6445NmenotiT Codes: Cut/pierceb (1 source)Contact with other sharp object(s), not elsewhere classified, initial encounter; Translations: [[facility] SHRP OB NOT ELSW CLASS INI]Onset: 01-09-2023 EpisodicEssential hypertension (20 sources)Hypertensive disorder; Translations: [Essential hypertension]Onset: 530782-48-3590BmdexnxWqsovxuxpraas symptoms and ill-defined conditions (2 sources)Urge incontinence of -19-0647ExlyuriVvobwiotzxl of prostate (9 sources)Benign prostatic hypertrophy with outflow obstruction; Translations: [Benign prostatic hyperplasia with lower urinary tract symptoms]Onset: 54-42-1905HncnpxhPrswgygezgfah and screening for infectious disease (2 sources)Encounter for immunization; Translations: [Vaccination given]Onset: 53-82-2583KeuyjeftPdbj wounds of extremities (7 sources)Unspecified open wound of left middle finger without damage to nail, initial encounter; Translations: [Laceration of upper arm]Onset: 01-05-2023 EpisodicOther aftercare (4 sources)H/O: high risk medication; Translations: [Other prison (current) drug therapy]EpisodicOther aftercare (1 source)Other intermediate accountant (current) drug therapy; Translations: [OTH SENIOR TEST ANALYST CURRENT DRUG THERAPY]Onset: 07-04-3024OlattmhlHusui aftercare (1 source)superintendent terminal (current) use of aspirin; Translations: [SENIOR TEST ANALYST CURRENT USE OF ASPIRIN]Onset: 28-28-7369SgwytfmgZiohs aftercare (1 source)long-term (current) use of oral hypoglycemic drugs; Translations: [SENIOR TEST ANALYST USE ORAL HYPOGLYCEMIC DX]Onset: 88-31-5505AgauubwsKfopd aftercare (1 source)Long-term current use of drug therapy; Translations: [Other intermediate accountant (current) drug therapy]EpisodicOther and ill-defined cerebrovascular disease (4 sources)Cerebral atherosclerosis; Translations: [Cerebral atherosclerosis] 32-21-1821DzgdqrkPukqame on above:CT: age related atrophy, white matter disease, remote lacunar infarct - 05/2025Other diseases of kidney and ureters (1 source)Urinary tract obstruction; Translations: [Other obstructive and reflux uropathy]Onset: 78-41-4704RbsbxilgSphzc diseases of veins and lymphatics (20 sources)Peripheral venous insufficiency; Translations: [Venous insufficiency (chronic) (peripheral)]57-04-7217NxlzuaysRcmny diseases of veins and lymphatics (4 sources)Venous insufficiency (chronic) (peripheral); Translations: [Venous (peripheral) insufficiency, unspecified]EpisodicOther injuries and conditions due to external causes (1 source)History of fall; Translations: [History of falling]EpisodicOther non- traumatic joint disorders (7 sources)Hip pain; Translations: [Pain in right hip]97-34-1489UfdiguhuDqajn non-traumatic joint disorders (1 source)Pain in right hip; Translations: [Pain in joint, pelvic region and thigh]71-53-4849MesjryiaMmdmb nutritional; endocrine; and metabolic disorders (2 sources)Body mass index 30+ - obesity; Translations: [Body mass index 30.0- 30.9, adult]Onset: 71-94-2004SijksjzWvngo nutritional; endocrine; and metabolic disorders (1 source)Obesity; Translations: [Obesity, unspecified]Onset: 55-48-8464Vaxwojh Other nutritional; endocrine; and metabolic disorders (1 source)Simple obesity ; Translations: [Other obesity due to excess calories] Onset: 75-24-6115CeatmmqZheov nutritional; endocrine; and metabolic disorders (20 sources)Weight decreased; Translations: [Abnormal weight loss]03-24-2025 EpisodicOther screening for suspected conditions (not mental disorders or infectious disease) (5 sources)Raised prostate specific antigen; Translations: [Elevated prostate specific antigen [PSA]] Resolved: 498309-77-5948ZjsoyqlfWyrvp upper respiratory disease (5 sources)Allergic rhinitis due to pollen; Translations: [Allergic rhinitis due to pollen]ChronicSpondylosis; intervertebral disc disorders; other back problems (6 sources)Lumbar spondylosis; Translations: [Spondylosis without myelopathy or radiculopathy, lumbar region]19-73-6126MfpdebmEybhisysdfh; intervertebral disc disorders; other back problems (10 sources)Low back pain; Translations: [Low back pain radiating to right lower extremity]89-68-1399ZohoowvzKuyrjdnyw-related disorders (1 source)Tobacco user; Translations: [Nicotine dependence, [...] anemia (1 source)Anemia, unspecified; Translations: [ANEMIA UNSPECIFIED]Onset: 93-05-2933AemgwsfkNcbqfyl and fatigue (1 source)Malaise and fatigue; Translations: [Other malaise and fatigue]Onset: 98-20-3183ZexlcanjYnzqf connective tissue disease (1 source)Pain in left foot; Translations: [Pain in left foot] Resolved: 46-80-3000ArpefcyzAfjgy non-traumatic joint disorders (1 source)Arthralgia of the ankle and/or foot; Translations: [Pain in left ankle and joints of left foot] Resolved: 75-69-0720BjtkvjjeRkemhojx codes; unclassified (1 source)Requires influenza virus vaccination; Translations: [Need for prophylactic vaccination and inoculation, Influenza]Onset: 39-07-3465Ccywipur Screening and history of mental health and substance abuse codes (2 sources)History of tobacco use; Translations: [Personal history of tobacco use, presenting hazards to health]Onset: 44-99-4777ZcuqkrfhJothwcbepvlb (1 source)Long-term current use of drug therapy; Translations: [Long-term (current) use of other medications]Onset: 42-26-5500Sfzik infection (1 source)Herpes zoster with complication; Translations: [Zoster with other complications] Resolved: 57-90-5873Xdlxgred Results Test NameValueInterpretationReference RangeFacilityGlucose Poct Glucometerson 69-22-8135Cjkbbdu [Mass/Vol]198 mg/dLNoCone Health Physician GroupComment on above:Result Comment: Random Glucose Reference Range is dependent on time and content of last meal. Glucose of more than 200 mg/dL in a nonstressed, ambulatory subject supports the diagnosis of Diabetes Mellitus. PERFORMED BY: [address] [id number] [place] [address] PATHOLOGIST PLASTIC FIXTURE BUILDER ANDERS JOAQUIN M.D.Performed By: #### GLULS #### Point of Care testing ,[facility] 11-11-0514UBVCDvrovw Visit (JOSE) SEGUN JOHNSON ([id number]) 1945 M Date Time Provider Department 06/17/25 [...] MD cc: Nico Lino (Mikhail) [address] [phone] Portions of the above note extracted and edited from previous visit as well as active information included in the EMR. Allergies As of Date: 06/17/2025 (No Known Allergies) Date Reviewed: 06/17/2025 Reviewed by: Raudel Waddell RN - Fully Assessed Reason for Visit: Prostate Cancer [590] Primary Visit Diagnosis:Cancer of prostate w/med recur risk (T2b-c or Asaf 7 or PSA 10-20) ([facility]) [C61] Order(s):PSA (OUTSIDE) [1649591] Order #: [id number] PROSTATE-SPECIFIC ANTIGEN DIAGNOSTIC [SQPSA] Order #: [id number] FUTURE Prescriptions as of 06/24/2025 - glipiZIDE [...] by mouth. - lo (more content not included)...NormalLima City HospitalBasophils Auto (Bld) [#/Vol]Ordered By: Brigid Avila on 44-18-6461Aglpawbqi (Bld) [#/Vol] 0.1 10 3/uL0.0-0.1FOhioHealth Grove City Methodist HospitalBasophils/100 WBC Auto (Bld) Ordered By: Brigid Avila on 29-97-2859Kazheleje/100 WBC (Bld)1.2 %0.2-2.0 [facility] CenterEosinophils/100 WBC Auto (Bld)Ordered By: Brigid Avila on 35-92-8573Zpqwxivedsq/100 WBC (Bld)2.6 %0.9-7.0[facility] CenterErythrocyte distribution width Auto (RBC) [Ratio]Ordered By: Brigid Avila on 91-77-1282Qqmrqfgrtkn distribution width (RBC) [Ratio]14.7 % 11.0-15.0[facility] CenterGlobulin Calc (S) [Mass/Vol]Ordered By: Brigid Avila on 08-83-3661Wuivzxnt (S) [Mass/Vol]4.7 g/dLSamaritan North Health CenterGlomerular filtration rate (GFR) estimation in non- AmericanOrdered By: Brigid Avila on 20-95-7514WVP/1.73 sq M.predicted among non- blacks MDRD (S/P/Bld) [Vol rate/Area]33 mL/min/{1.73_m2}Low>=60 mL/min/1.73m 2 [facility] CenterHematocrit Auto (Bld) [Volume fraction]Ordered By: [facility] on 16-93-5417Rgigppzpty (Bld) [Volume fraction]37.3 %Low 42.0-54.0[facility] CenterHemoglobin [Mass/volume] in Blood Ordered By: [facility] on 95-51-2377Tzhspyrhgv (Bld) [Mass/Vol]12.4 g/dLLow 14.0-18.0[facility] CenterLaboratory - Chemistry and Chemistry - challengeOrdered By: [facility] on 51-62-9646Gxsyboa [Mass/Vol]3.3 g/dLLow 3.4-5.0[facility] CenterALP [Catalytic activity/Vol]89 U/L46-116 [facility] CenterALT [Catalytic activity/Vol]35 U/L16-63 [facility] CenterAST [Catalytic activity/Vol]25 U/L15-37 [facility] CenterBilirubin [Mass/Vol]0.8 mg/dL0.2-1.0[facility] CenterCalcium [Mass/Vol]9.3 mg/dL8.5-10.1FOhioHealth Grove City Methodist HospitalChloride [Moles/Vol]102 mmol/Z64-300HocpouklqSamaritan North Health CenterCO2 [Moles/Vol]20.7 mmol/LLow21.0-32.0[facility] Creatinine [Mass/Vol]1.95 mg/dLHigh0.70-1.30[facility] GFR/1.73 sq M.predicted MDRD (S/P/Bld) [Vol rate/Area]40 mL/min/{1.73_m2}Low>=60 mL/min/1.73m 2FOhioHealth Grove City Methodist HospitalGlucose [Mass/Vol]143 mg/dLHigh 74-106[facility] CenterPotassium [Moles/Vol]4.2 mmol/L3.5-5.1 [facility] CenterProtein [Mass/Vol]8.0 g/dL6.4-8.2FPremier Health Atrium Medical Centerodium [Moles/Vol]136 mmol/L262-792HlgrmkkdtSamaritan North Health CenterUrea nitrogen [Mass/Vol]30.0 mg/dLHigh7.0-18.0[facility] CenterUrea nitrogen/Creatinine [Mass ratio]15.4 mg/mgSamaritan North Health CenterLaboratory - Hematology and Cell countsOrdered By: Brigid Avila on 43-31-0684Kjyxjltm granulocytes/100 WBC (Bld)0.4 %0.0-0.5FOhioHealth Grove City Methodist HospitalLeukocytes [#/volume] corrected for nucleated erythrocytes in Blood by Automated counOrdered By: Brigid Avila on 43-36-6632KVJ corrected for nucl RBC Auto (Bld) [#/Vol]8.3 10 3/uL4.0-11.0[facility] Lymphocytes Auto (Bld) [#/Vol]Ordered By: Brigid Avila on 16-85-9678Fnsvfkelraz (Bld) [#/Vol]0.8 10 3/uLLow1.2-3.8[facility] Lymphocytes/100 WBC Auto (Bld)Ordered By: Brigid Avila on 06-10-2025 Lymphocytes/100 WBC (Bld)9.4 %Low20.5-60.0[facility] Auto (RBC) [Entitic mass]Ordered By: Brigid Avila on 33-06-8113CMB (RBC) [Entitic mass]29.2 pg25.9-34.0[facility] HospitalHC Auto (RBC) [Mass/Vol]Ordered By: Brigid Avila on 26-52-5536KOIU (RBC) [Mass/Vol]33.2 g/dL 29.9-35.2FOhioHealth Grove City Methodist HospitalMCV Auto (RBC) [Entitic vol]Ordered By: Brigid Avila on 84-48-3710XSG (RBC) [Entitic vol]88.0 fL80.0-94.0[facility] CenterMonocytes Auto (Bld) [#/Vol]Ordered By: Brigid Avila on 55-03-9643Fvqxzzyia (Bld) [#/Vol]0.4 10 3/uL0.3-0.8[facility] CenterMonocytes/100 WBC Auto (Bld)Ordered By: Brigid Margarita on 06-10-2025 Monocytes/100 WBC (Bld)5.0 %1.7-12.0[facility] CenterNeutrophils Auto (Bld) [#/Vol]Ordered By: Brigid Margarita on 21-22-3126Bgyvtuuxoyc (Bld) [#/Vol]6.8 10 3/uLHigh1.4-6.5FOhioHealth Grove City Methodist HospitalNeutrophils/100 WBC Auto (Bld)Ordered By: Brigid Margarita on 93-54-1126Ksxiuwyhugd/100 WBC (Bld)81.4 %High43.0-75.0[facility] CenterNo Panel InformationOrdered By: Brigid Margarita on 30-48-6089Chflggimbpj # (Auto)0.2 10 3/uL0.0-0.7FOhioHealth Grove City Methodist HospitalImmature Granulocyte # (Auto)0.03 10 3/uL0.00-0.03 [facility] CenterPlatelet mean volume Auto (Bld) [Entitic vol] Ordered By: Brigid Margarita on 39-25-6829Xnaulgvm mean volume (Bld) [Entitic vol] 11.3 fL9.5-13.5FOhioHealth Grove City Methodist HospitalPlatelets Auto (Bld) [#/Vol] Ordered By: Brigid Margarita on 57-15-6905Wlzgrrdhh (Bld) [#/Vol]372 10 3/zN515-028 [facility] CenterRBC Auto (Bld) [#/Vol]Ordered By: Brigid Margarita on 21-73-5879VTR (Bld) [#/Vol]4.24 10 6/uLLow4.70-6.10[facility] Anne Hospitalerum or plasma albumin/globulin mass ratioOrdered By: Brigid Avila on 06-98-1353Sezyjkn/Globulin [Mass ratio]0.7 {ratio}[facility] Anne Hospitalerum or plasma anion gap determinationOrdered By: Brigid Avila on 10-76-7685Ooqhz gap [Moles/Vol]17.5 mmol/LFOhioHealth Grove City Methodist Hospital Basophils Auto (Bld) [#/Vol]Ordered By: Nico Lino on 36-62-8484Viwerwesq (Bld) [#/Vol]0.2 10 3/uLHigh0.0-0.1FOhioHealth Grove City Methodist Hospital Basophils/100 WBC Auto (Bld)Ordered By: Nico Lino on 24-85-6046Ogtzrfhcw/100 WBC (Bld)1.5 %0.2-2.0[facility] CenterEosinophils/100 WBC Auto (Bld)Ordered By: Nico Lino on 67-32-8056Olixewewkzs/100 WBC (Bld)4.4 % 0.9-7.0[facility] CenterErythrocyte distribution width Auto (RBC) [Ratio]Ordered By: Nico Lino on 14-54-6665Inwcccefkpv distribution width (RBC) [Ratio]15.0 %11.0-15.0[facility] CenterGlobulin Calc (S) [Mass/Vol]Ordered By: Nico Lion on 17-84-3243Ovbvdygm (S) [Mass/Vol]4.9 g/dLSamaritan North Health CenterGlomerular filtration rate (GFR) estimation in non- AmericanOrdered By: Nico Lino on 06-02-2025 GFR/1.73 sq M.predicted among non-blacks MDRD (S/P/Bld) [Vol rate/Area]37 mL/min/{1.73_m2}Low>=60 mL/min/1.73m 2FOhioHealth Grove City Methodist Hospital Hematocrit Auto (Bld) [Volume fraction]Ordered By: Nico Lino on 06-02-2025 Hematocrit (Bld) [Volume fraction]38.1 %Low42.0-54.0[facility] CenterHemoglobin [Mass/volume] in BloodOrdered By: Nico Lino on 06-02-2025 Hemoglobin (Bld) [Mass/Vol]12.7 g/dLLow14.0-18.0[facility] CenterLaboratory - Chemistry and Chemistry - challengeOrdered By: Nico Lino on 44-11-3878Stttkbk [Mass/Vol]3.4 g/dL3.4-5.0[facility] ALP [Catalytic activity/Vol]86 U/N33-610PllytekzfSamaritan North Health CenterALT [Catalytic activity/Vol]30 U/V17-35MmnmncjdhSamaritan North Health CenterAST [Catalytic activity/Vol]26 U/J38-95YfxjmedavSamaritan North Health CenterBilirubin [Mass/Vol]0.5 mg/dL0.2-1.0[facility] CenterCalcium [Mass/Vol]9.3 mg/dL8.5-10.1FOhioHealth Grove City Methodist HospitalChloride [Moles/Vol]103 mmol/L 98-107[facility] CenterCO2 [Moles/Vol]24.1 mmol/L21.0-32.0 [facility] CenterCreatinine [Mass/Vol]1.79 mg/dLHigh0.70-1.30 [facility] CenterFree T4 [Mass/Vol]1.27 ng/dL0.76-1.46[facility] CenterGFR/1.73 sq M.predicted MDRD (S/P/Bld) [Vol rate/Area]45 mL/min/{1.73_m2}Low>=60 mL/min/1.73m 2FOhioHealth Grove City Methodist HospitalGlucose [Mass/Vol]135 mg/zBVrjw73-156YzivguqoaSamaritan North Health CenterPotassium [Moles/Vol]4.4 mmol/L3.5-5.1FOhioHealth Grove City Methodist HospitalProtein [Mass/Vol] 8.3 g/dLHigh6.4-8.2FPremier Health Atrium Medical Centerodium [Moles/Vol]138 mmol/L 136-145[facility] CenterTSH Qn6.659 m[IU]/LHigh0.358-3.740 [facility] CenterUrea nitrogen [Mass/Vol]31.0 mg/dLHigh7.0-18.0 [facility] CenterUrea nitrogen/Creatinine [Mass ratio]17.3 mg/mg [facility] CenterLaboratory - Hematology and Cell countsOrdered By: Nico Lino on 46-14-4509Cqnwclhj granulocytes/100 WBC (Bld)0.3 %0.0-0.5 [facility] CenterLeukocytes [#/volume] corrected for nucleated erythrocytes in Blood by Automated counOrdered By: Nico Lino on 06-02-2025 WBC corrected for nucl RBC Auto (Bld) [#/Vol]10.5 10 3/uL4.0-11.0[facility] CenterLymphocytes Auto (Bld) [#/Vol]Ordered By: Nico Lino on 09-56-7115Hwjrrtcjtci (Bld) [#/Vol]2.1 10 3/uL1.2-3.8[facility] CenterLymphocytes/100 WBC Auto (Bld)Ordered By: Nico Lino on 21-15-0207Wcmhbfdxrvk/100 WBC (Bld)20.3 %Low20.5-60.0[facility] HospitalH Auto (RBC) [Entitic mass]Ordered By: Nico Lino on 76-98-8380KNO (RBC) [Entitic mass]29.4 pg25.9-34.0[facility] HospitalHC Auto (RBC) [Mass/Vol]Ordered By: Nico Lino on 53-05-3051JNKP (RBC) [Mass/Vol]33.3 g/dL29.9-35.2FOhioHealth Grove City Methodist HospitalMCV Auto (RBC) [Entitic vol] Ordered By: Nico Lino on 10-77-3366PHM (RBC) [Entitic vol]88.2 fL80.0-94.0 [facility] CenterMonocytes Auto (Bld) [#/Vol]Ordered By: Nico Lino on 42-39-0570Soqtkuqzk (Bld) [#/Vol]0.8 10 3/uL0.3-0.8[facility] CenterMonocytes/100 WBC Auto (Bld)Ordered By: Nico Lino on 66-48-4400Xicvuajty/100 WBC (Bld)7.4 %1.7-12.0[facility] Neutrophils Auto (Bld) [#/Vol]Ordered By: Nico Lino on 27-33-6645Tvjkhupxceo (Bld) [#/Vol]6.9 10 3/uLHigh1.4-6.5FOhioHealth Grove City Methodist Hospital Neutrophils/100 WBC Auto (Bld)Ordered By: Nico Lino on 06-02-2025 Neutrophils/100 WBC (Bld)66.1 %43.0-75.0[facility] CenterNo Panel InformationOrdered By: Nico Lino on 18-56-1624Ncynrgwuqoj # (Auto)0.5 10 3/uL0.0-0.7FOhioHealth Grove City Methodist HospitalImmature Granulocyte # (Auto)0.03 10 3/uL0.00-0.03[facility] CenterProstate Specific Antigen Total2.75 ng/mL<=4.00[facility] CenterTotal Otucoycouwleeotk021 ng/nO36-246AxxctunvySamaritan North Health CenterComment on above:Performed at: [employer] [id number] Director: Rocco Lopez PhD, Phone: [phone] Panel InformationOrdered By: Ronda Bartlett on 53-13-1477Dntzdmbtvvsf Hwybg721 ng/yW042-153KvqaghrsySamaritan North Health Center Comment on above:Adult male reference interval is based on a population ofhealthy nonobese males (BMI <30) between 19 and 39 yearsold. Elysia et.al. JCEM 2017,102;5560-1109. PMID:[id number].Performed at: [employer] [id number] Director: Rocco Lopez PhD, Phone: [phone] mean volume Auto (Bld) [Entitic vol]Ordered By: Nico Lino on 11-48-9132Qagqzdjf mean volume (Bld) [Entitic vol]11.4 fL9.5-13.5FOhioHealth Grove City Methodist HospitalPlatelets Auto (Bld) [#/Vol]Ordered By: Nico Lino on 87-64-6428Uxybuucsl (Bld) [#/Vol]378 10 3/uQ532-626NsrwsnweoSamaritan North Health CenterRBC Auto (Bld) [#/Vol]Ordered By: Nico Lino on 04-40-2434DOB (Bld) [#/Vol]4.32 10 6/uLLow4.70-6.10[facility] Anne Hospitalerum or plasma albumin/globulin mass ratioOrdered By: Nico Lino on 06-02-2025 Albumin/Globulin [Mass ratio]0.7 {ratio}[facility] Hospitalerum or plasma anion gap determinationOrdered By: Nico Lino on 51-81-9011Fmzdz gap [Moles/Vol]15.3 mmol/LFOhioHealth Grove City Methodist HospitalBasophils Auto (Bld) [#/Vol]Ordered By: Nico Lino on 70-23-3574Nylvkbnkd (Bld) [#/Vol]0.2 10 3/uL High0.0-0.1FOhioHealth Grove City Methodist HospitalBasophils/100 WBC Auto (Bld)Ordered By: Nico Lino on 42-61-1246Clwomyptz/100 WBC (Bld)1.6 %0.2-2.0[facility] CenterEosinophils/100 WBC Auto (Bld)Ordered By: Nico Lino on 20-21-5267Tflzicyxtxz/100 WBC (Bld)5.4 %0.9-7.0[facility] CenterErythrocyte distribution width Auto (RBC) [Ratio]Ordered By: Nico Lino on 95-10-2227Ubdozwwymxr distribution width (RBC) [Ratio]15.3 %High11.0-15.0 [facility] CenterEstimated glomerular filtration rate (GFR) non- AmericanOrdered By: Nico Lino on 37-27-5011YLD/1.73 sq M.predicted among non-blacks MDRD (S/P/Bld) [Vol rate/Area]38 mL/min/{1.73_m2}Low>=60 mL/min/1.73m 2FOhioHealth Grove City Methodist HospitalGlobulin Calc (S) [Mass/Vol] Ordered By: Nico Lino on 32-99-9306Ctzatons (S) [Mass/Vol]4.4 g/dLSamaritan North Health CenterHematocrit Auto (Bld) [Volume fraction]Ordered By: Nico Lino on 31-02-3496Vfjwtgglcr (Bld) [Volume fraction]36.7 %Low42.0-54.0 [facility] CenterHemoglobin [Mass/volume] in BloodOrdered By: Nico Lino on 59-86-1792Llhwysfclm (Bld) [Mass/Vol]12.2 g/dLLow14.0-18.0 [facility] CenterLaboratory - Chemistry and Chemistry - challengeOrdered By: Nico Lino on 04-27-2500Gquxnco [Mass/Vol]3.4 g/dL 3.4-5.0[facility] CenterALP [Catalytic activity/Vol]90 U/L46-116 [facility] CenterALT [Catalytic activity/Vol]25 U/L16-63 [facility] CenterAmylase [Catalytic activity/Vol]62 U/L25-115 [facility] CenterAST [Catalytic activity/Vol]18 U/L15-37 [facility] CenterBilirubin [Mass/Vol]0.3 mg/dL0.2-1.0[facility] CenterCalcium [Mass/Vol]9.0 mg/dL8.5-10.1FOhioHealth Grove City Methodist HospitalChloride [Moles/Vol]107 mmol/D54-862SmbswuzcdSamaritan North Health CenterCO2 [Moles/Vol]21.2 mmol/L21.0-32.0[facility] Creatinine [Mass/Vol]1.75 mg/dLHigh0.70-1.30[facility] Ferritin [Mass/Vol]174.0 ng/mL26.0-388.0[facility] GFR/1.73 sq M.predicted MDRD (S/P/Bld) [Vol rate/Area]46 mL/min/{1.73_m2}Low>=60 mL/min/1.73m 2FOhioHealth Grove City Methodist HospitalGlucose [Mass/Vol]108 mg/dLHigh 74-106[facility] CenterLipase [Catalytic activity/Vol]46.0 U/L 16.0-77.0[facility] CenterPotassium [Moles/Vol]4.7 mmol/L3.5-5.1 [facility] CenterProtein [Mass/Vol]7.8 g/dL6.4-8.2FPremier Health Atrium Medical Centerodium [Moles/Vol]141 mmol/T780-431SwedsmdilSamaritan North Health CenterUrea nitrogen [Mass/Vol]34.0 mg/dLHigh7.0-18.0[facility] CenterUrea nitrogen/Creatinine [Mass ratio]19.4 mg/mgSamaritan North Health CenterLaboratory - Hematology and Cell countsOrdered By: Nico Lino on 68-47-4583Lfdexcll granulocytes/100 WBC (Bld)0.2 %0.0-0.5[facility] CenterLeukocytes [#/volume] corrected for nucleated erythrocytes in Blood by Automated counOrdered By: Nico Lino on 06-95-7802MJD corrected for nucl RBC Auto (Bld) [#/Vol]10.0 10 3/uL4.0-11.0[facility] Lymphocytes Auto (Bld) [#/Vol]Ordered By: Nico Lino on 72-11-2651Ahrnpwvewry (Bld) [#/Vol]1.8 10 3/uL1.2-3.8[facility] CenterLymphocytes/100 WBC Auto (Bld)Ordered By: Nico Lino on 38-08-4989Zhjmmmzifjn/100 WBC (Bld) 17.5 %Low20.5-60.0[facility] Auto (RBC) [Entitic mass] Ordered By: Nico Lino on 83-58-6043BTP (RBC) [Entitic mass]30.0 pg25.9-34.0 [facility] CenterMCHC Auto (RBC) [Mass/Vol]Ordered By: Nico Lino on 41-26-5274CYFJ (RBC) [Mass/Vol]33.2 g/dL29.9-35.2FOhioHealth Grove City Methodist HospitalMCV Auto (RBC) [Entitic vol]Ordered By: Nico Lino on 54-92-7701JLR (RBC) [Entitic vol]90.4 fL80.0-94.0[facility] CenterMonocytes Auto (Bld) [#/Vol]Ordered By: Nico Lino on 03-24-2025 Monocytes (Bld) [#/Vol]0.8 10 3/uL0.3-0.8[facility] Monocytes/100 WBC Auto (Bld)Ordered By: Nico Lino on 47-08-7219Cieptlbmc/100 WBC (Bld)7.6 %1.7-12.0[facility] CenterNeutrophils Auto (Bld) [#/Vol]Ordered By: Nico Lino on 50-01-8915Xenxjrhbpna (Bld) [#/Vol]6.8 10 3/uLHigh1.4-6.5FOhioHealth Grove City Methodist HospitalNeutrophils/100 WBC Auto (Bld) Ordered By: Nico Lino on 32-99-2293Uffedztnjie/100 WBC (Bld)67.7 %43.0-75.0 [facility] CenterNo Panel InformationOrdered By: Nico Lino on 13-19-5968Wuyhqcfsoqx # (Auto)0.5 10 3/uL0.0-0.7FOhioHealth Grove City Methodist HospitalFolate25.80 ng/mL8.60-58.90[facility] CenterImmature Granulocyte # (Auto)0.02 10 3/uL0.00-0.03[facility] Vitamin B12 Level>2000 pg/kJYvrtlcmb256-9384FckxbxsqcSamaritan North Health Center Comment on above:Performed at: [facility] [id number] Director: Rocco Lopez PhD, Phone: [phone] mean volume Auto (Bld) [Entitic vol]Ordered By: Nico Lino on 64-90-6989Zadphifj mean volume (Bld) [Entitic vol]11.2 fL9.5-13.5FOhioHealth Grove City Methodist Hospital Platelets Auto (Bld) [#/Vol]Ordered By: Nico Lino on 94-85-1757Dgfusxkof (Bld) [#/Vol]398 10 3/bB010-354EdiljhnveSamaritan North Health CenterRBC Auto (Bld) [#/Vol]Ordered By: Nico Lino on 71-39-1502CLT (Bld) [#/Vol]4.06 10 6/uLLow 4.70-6.10[facility] Anne Hospitalerum or plasma albumin/globulin mass ratioOrdered By: Nico Lino on 41-53-0148Zcbwiic/Globulin [Mass ratio]0.8 {ratio}[facility] Hospitalerum or plasma anion gap determination Ordered By: Nico Lino on 29-50-7640Kzcfx gap [Moles/Vol]17.5 mmol/LFOhioHealth Grove City Methodist HospitalGlucose mean value [Mass/volume] in Blood Estimated from glycated hemoglobinOrdered By: Nico Lino on 65-82-9711Ywjflmu glucose Estimated from glycated hemoglobin (Bld) [Mass/Vol]163 mg/dLSamaritan North Health CenterHemoglobin A1c percentageOrdered By: Nico Mago on 03-18-2025 HbA1c (Bld) [Mass fraction]7.3 %High4.5-6.2FOhioHealth Grove City Methodist Hospital Comment on above:ADA RECOMMENDED LIMIT 4.0 - 6.0ADA THERAPEUTIC TARGET < 7.0ACTION SUGGESTED> 7.0CNOVon 15-14-9779DEKMCfeyjc Visit (RADTSA) SEGUN JOHNSON ([id number]) 1945 M Date Time Provider Department 12/10/24 [...] DIAGNOSIS: Prostate adenocarcinoma, initial PSA 11.5, biopsy [place] score 4 + 3 = 7 (grade [...] ASSESSMENT/PLAN: Prostate adenocarcinoma, 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 Clinically doing well. PSA with minimal change control specialist the last 3 to 4 months. Has risen over the last 12 months still likely related to testosterone recovery after prior ADT. Recommend continued close observation. If continues to climb consider PSMA PET. Signed by: Ronda Bartlett MD cc: Nico Lino ([facility]) [address] [place] [address] Portions of the above note extracted and edited from previous visit as well as active information included in the EMR. Allergies As of Date: 12/10/2024 (No Known Allergies) Date Reviewed: 12/10/2024 Reviewed by: Angélica Acharya RN - Fully Assessed Reason for Visit: Prostate Cancer [590] Primary Visit Diagnosis:Cancer of prostate w/med recur risk (T2b-c or Asaf 7 or PSA 10-20) ([facility]) [C61] Order(s):PSA (OUTSIDE) [4752304] Order #: [id number] PROSTATE-SPECIFIC ANTIGEN DIAGNOSTIC [SQPSA] Order #: [id number] FUTURE TESTOSTERONE, TOTAL BY IMMUNOASSAY (ADULT MALES, OR INDIVIDUALS ON TESTOSTERONE THERAPY) [SQTESTO] Order #: [id number] FUTURE Prescriptions as of 12/17/2024 - folic [...] by mouth. - glim (more content not included)...NormalSamaritan North Health Center (OUTSIDE)on 73-99-8333Lvsssrmcr ClinicCNOVon 68-40-9927PZKAZtbjbp Visit (RADTSA) SEGUN JOHNSON ([id number]) 1945 M Date Time Provider Department 08/09/24 [...] DIAGNOSIS: Prostate adenocarcinoma, initial PSA 11.5, biopsy [place] score 4 + 3 = 7 (grade [...] ASSESSMENT/PLAN: Prostate adenocarcinoma, initial PSA 11.5, biopsy [place] score 4 + 3 = 7 (grade [...] Bartlett MD cc: Nico Lino ([facility]) [address] [place] [address] Dr. Storey Portions of the above note extracted and edited from previous visit as well as active information included in the EMR. Referring Provider: Ronda BARTLETT [[id number]] Allergies As of Date: 08/09/2024 (No Known Allergies) Date Reviewed: 08/09/2024 Reviewed by: Raudel Waddell LPN - Fully Assessed Reason for Visit: Prostate Cancer [590] Primary Visit Diagnosis:Cancer of prostate w/med recur risk (T2b-c or Asaf 7 or PSA 10-20) ([facility]) [C61] Order(s):PSA (OUTSIDE) [3843688] Order #: [id number] PROSTATE-SPECIFIC ANTIGEN DIAGNOSTIC [SQPSA] Order #: [id number] FUTURE TESTOSTERONE, TOTAL BY IMMUNOASSAY (ADULT MALES, OR INDIVIDUALS ON TESTOSTERONE THERAPY) [SQTESTO] Order #: [id number] FUTURE Prescriptions as of 08/09/2024 - folic [...] mg tablet - l (more content not included)...NormalSamaritan North Health Center (OUTSIDE) on 67-02-5536Wygwzdfjv ClinicUS Eye+Orbit - bilateralon 04-66-7439Mcdkeilvd: Cataract both eyes (OU) Testing Indication: Performed for preop measurements in the determination of an intraocular lens (IOL) for both eyes (OU) Test Reliability: Good quality both eyes (OU) Interpretation: Good measurements for intraocular lens (IOL) calculation purposes. Calculation made for both eyes (OU).[facility] Radiology Study observation (narrative)[facility] HealthcareGlucose mean value [Mass/volume] in Blood Estimated from glycated hemoglobinon 38-79-9552Pvwlngx glucose Estimated from glycated hemoglobin (Bld) [Mass/Vol]163 mg/dLFirelands Regional Medical CenterLaboratory - Hematology and Cell countson 58-95-2465UkN3h (Bld) [Mass fraction]7.3 %High4.5-6.2FOhioHealth Grove City Methodist HospitalComment on above:ADA RECOMMENDED LIMIT 4.0 - 6.0ADA THERAPEUTIC TARGET < 7.0ACTION SUGGESTED> 7.0Consultation Noteon 21-95-4670Foouymcgjadi Note [id number]#1.00TIFFCleveland Clinic Fairview HospitalNo Panel Informationon 11-29-9416Rovhtivs Specific Antigen Total0.61 ng/mL <=4.00[facility] Health CenterPSA (OUTSIDE)on 46-76-9814Dvzynkwji ClinicGLYCOHEMOGLOBIN A1Con 61-90-2507EBC RECOMMENDATIONSEE Clinton Memorial HospitalComment on above:Result Comment: ADA RECOMMENDED LIMIT 4.0 - 6.0 ADA THERAPEUTIC TARGET < 7.0 ACTION SUGGESTED > 7.0Performed By: #### A1C #### [facility] [address] [place] [address] Dr. Radha BrownGlucose [Mass/Vol]186 mg/dLNoBlanchard Valley Health System Blanchard Valley HospitalComment on above:Performed By: #### A1C #### [facility] [address] [place] [address] Dr. Radha BrownHbA1c (Bld) [Mass fraction]8.1 %Critically high4.5-6.2The [facility] HospitalComment on above:Performed By: #### A1C #### [facility] [address] [address] [address] Radha Strange AUTO DIFFon 42-26-1297MQCJ #0.1 103/ulNormal0.0-0.1The [facility] HospitalComment on above:Performed By: #### CBC #### [facility] [address] [place] [address] Dr. Radha BrownBasophils/100 WBC (Bld)0.9 %Normal0.2-2.0[facility] Comment on above:Performed By: #### CBC #### [facility] [address] [address] [address] Radha Martinez #0.5 103/ulNormal0.0-0.7The [facility] HospitalComment on above: Performed By: #### CBC #### [facility] [address] [place] [address] Dr. Radha Floresosinophils/100 WBC (Bld)5.5 %Normal0.9-7.0[facility] Comment on above:Performed By: #### CBC #### [facility] [address] [place] [address] Dr. Radha Floresrythrocyte distribution width (RBC) [Ratio]15.0 %Fetwva50.0-15.0 [facility] HospitalComment on above:Performed By: #### CBC #### [facility] [address] [place] [address] Dr. Radha BrownHematocrit (Bld) [Volume fraction]35.6 %Critically low42.0-54.0 [facility] HospitalComment on above:Performed By: #### CBC #### [facility] [address] [place] [address] Dr. Radha BrownHemoglobin (Bld) [Mass/Vol]11.8 g/dLCritically low14.0-18.0[facility] HospitalComment on above:Performed By: #### CBC #### [facility] [address] [place] [address] Dr. Radha Sanchez #0.05 10e3/ulCritically high0.00-0.03[facility] Comment on above:Performed By: #### CBC #### [facility] [address] [place] [address] Dr. Radha Sanchez %0.5 %Normal0.0-0.5The [facility] HospitalComment on above: Performed By: #### CBC #### [facility] [address] [place] [address] Dr. Radha Millard #1.8 103/ulNormal1.2-3.8The [facility] HospitalComment on above:Performed By: #### CBC #### [facility] [address] [place] [address] Dr. Radha Hullmphocytes/100 WBC (Bld)19.3 %Critically low20.5-60.0The [facility] HospitalComment on above:Performed By: #### CBC #### [facility] [address] [place] [address] Dr. Radha Rice DIFF REQNONormalThe [facility] Avon HospitalComment on above: Performed By: #### CBC #### [facility] [address] [place] [address] Dr. Radha Saravia (RBC) [Entitic mass]29.2 vrIgdfpp93.9-34.0The [facility] HospitalComment on above:Performed By: #### CBC #### [facility] [address] [place] [address] Dr. Radha Saravia (RBC) [Mass/Vol]33.1 g/iFObesvt23.9-35.2The [facility] HospitalComment on above:Performed By: #### CBC #### [facility] [address] [place] [address] Dr. Radha Saravia (RBC) [Entitic vol]88.1 yBClhqnq19.0-94.0The [facility] on above:Performed By: #### CBC #### [facility] [address] [place] [address] Dr. Radha Monte #0.6 103/ulNormal0.3-0.8[facility] on above:Performed By: #### CBC #### [facility] [address] [place] [address] Dr. Radha Anguloocytes/100 WBC (Bld)6.4 %Normal1.7-12.0The [facility] on above:Performed By: #### CBC #### [facility] [address] [place] [address] Dr. Radha Leigh #6.4 103/ulNormal1.4-6.5The [facility] HospitalComment on above:Performed By: #### CBC #### [facility] [address] [place] [address] Dr. Radha Salterutrophils/100 WBC (Bld)67.4 %Uyvynh48.0-75.0The [facility] on above:Performed By: #### CBC #### [facility] [address] [place] [address] Dr. Radha BrownPlatelet mean volume (Bld) [Entitic vol]9.2 fLCritically low 9.5-13.5[facility]Comment on above:Performed By: #### CBC #### [facility] [address] [place] [address] Dr. Radha BrownPLT232 103/bwCvhais462-908Dzt [facility] on above: Performed By: #### CBC #### [facility] [address] [place] [address] Dr. Radha BrownRBC4.04 106/ulCritically low4.70-6.10The [facility] Avon HospitalComment on above:Performed By: #### CBC #### [facility] [address] [place] [address] Dr. Radha BrownWBC9.5 103/ulNormal4.0-11.0The [facility] on above: Performed By: #### CBC #### [facility] [address] [place] [address] Dr. Radha BrownFERPorter [id number] [Mass/Vol]164.0 ng/mLNormal 26.0-388.0The [facility] HospitalComment on above:Performed By: #### PSAD, FOL, FERR, FETIBC #### [facility] [address] [place] [address] Dr. Radha Bloom 62-62-7616PVBORV3.60 ng/mLCritically low8.60-58.90The [facility] on above:Performed By: #### PSAD, FOL, FERR, FETIBC #### [facility] [address] [address] [address] Radha BrownGLYCOHEMOGLOBIN A1Con [id number] RECOMMENDATIONSEE BELOWNormLouis Stokes Cleveland VA Medical CenterComment on above:Result Comment: ADA RECOMMENDED LIMIT 4.0 - 6.0 ADA THERAPEUTIC TARGET < 7.0 ACTION SUGGESTED > 7.0Performed By: #### A1C #### [facility] [address] [address] [address] Radha BrownGlucose [Mass/Vol]134 mg/dLNormUniversity Hospitals Parma Medical CenterComment on above:Performed By: #### A1C #### [facility] [address] [address] [address] Radha BrownHbA1c (Bld) [Mass fraction]6.3 %Critically high4.5-6.2The [facility] HospitalComment on above:Performed By: #### A1C #### [facility] [address] [place] [address] Dr. Radha Rey AND TIBCon 07-29-2022% NVYOSUFCJJ02.1 %NormalThe [facility] Clinic Avon HospitalComment on above:Performed By: #### PSAD, FOL, FERR, FETIBC #### [facility] [address] [address] [address] Radha Rey [Mass/Vol]78.0 ug/jBCiuqwv55.0-175.0[facility] Comment on above:Performed By: #### PSAD, FOL, FERR, FETIBC #### [facility] [address] [place] [address] Dr. Radha BrownTIBC SJNSVY890.0 ug/hJGxxykc443.0-450.0[facility] Comment on above:Performed By: #### PSAD, FOL, FERR, FETIBC #### [facility] [address] [place] [address] Dr. Radha BrownLIPID PROFILEon [id number]-HDL RATIO NORMSEE BELOWCleveland ClinicComment on above:Result Comment: 3.3 - 4.4 LOW RISK 4.4 - 7.1 AVERAGE RISK 7.1 - 11.0 MODERATE RISK >11.0 HIGH RISKPerformed By: #### PSAD, FOL, FERR, FETIBC #### [facility] [address] [address] [address] Radha BrownCholesterol [Mass/Vol]137 mg/dLNormal<=200[facility] Comment on above:Performed By: #### PSAD, FOL, FERR, FETIBC #### [facility] [address] [address] [address] Radha BrownCholesterol in HDL [Mass/Vol]37 mg/dLCritically hlv74-95TeeCorey HospitalComment on above:Performed By: #### PSAD, FOL, FERR, FETIBC #### [facility] [address] [place] [address] Dr. Radha BrownCholesterol in LDL [Mass/Vol]67.0 mg/dLNoBlanchard Valley Health System Blanchard Valley HospitalComment on above:Performed By: #### PSAD, FOL, FERR, FETIBC #### [facility] [address] [place] [address] Dr. Radha Finneganestermarga.total/Cholesterol in HDL [Mass ratio]3.7 {ratio} NormalCorey HospitalComment on above:Performed By: #### PSAD, FOL, FERR, FETIBC #### [facility] [address] [place] [address] Dr. Radha Mendiola NORMAL> or = 60 mg/dl - LOW CARDIOVASCULAR RISK <40 mg/dl - HIGH CARDIOVASCULAR RISKCleveland ClinicComment on above:Performed By: #### PSAD, FOL, FERR, FETIBC #### [facility] [address] [place] [address] Dr. Radha BrownLDL CALC NORMALSEE BELOWCleveland ClinicComment on above:Result Comment: <100 mg/dl OPTIMAL 100 - 129 mg/dl NEAR OR ABOVE OPTIMAL 130 - 159 mg/dl BORDERLINE HIGH 160 - 189 mg/dl HIGH >190 mg/dl VERY HIGH Performed By: #### PSAD, FOL, FERR, FETIBC #### [facility] [address] [address] [address] Radha BrownTriglyceride [Mass/Vol]165 mg/dLCritically high<=150The [facility] HospitalComment on above:Performed By: #### PSAD, FOL, FERR, FETIBC #### [facility] [address] [place] [address] Dr. Radha BrownVLDL CALC33.0 mg/dLNormalThe [facility] Avon HospitalComment on above: Performed By: #### PSAD, FOL, FERR, FETIBC #### [facility] [address] [place] [address] Dr. Radha StevenALBUMIN, RAND URon [id number]<1.3Normal<=30.0The [facility]on HospitalComment on above:Performed By: #### MALBR #### [facility] [address] [place] [address] Dr. Radha BrownPROF CHEM 8 (BAS METB)on 53-82-7535Xznur gap [Moles/Vol]9.1 mmol/LNormalThe [facility] Avon HospitalComment on above:Performed By: #### PSAD, FOL, FERR, FETIBC #### [facility] [address] [place] [address] Dr. Radha BrownCalcium [Mass/Vol]8.6 mg/dLNormal8.5-10.1[facility] Comment on above:Performed By: #### PSAD, FOL, FERR, FETIBC #### [facility] [address] [place] [address] Dr. Radha BrownChloride [Moles/Vol]106 mmol/NXjqljb31-620Ttm [facility] Comment on above:Performed By: #### PSAD, FOL, FERR, FETIBC #### [facility] [address] [place] [address] Dr. Radha BrownCO2 [Moles/Vol]27.1 mmol/JSfvklj15.0-32.0[facility] Comment on above:Performed By: #### PSAD, FOL, FERR, FETIBC #### [facility] [address] [address] [address] Radha BrownCreatinine [Mass/Vol]1.19 mg/dLNormal0.70-1.30The [facility]on HospitalComment on above:Performed By: #### PSAD, FOL, FERR, FETIBC #### [facility] [address] [place] [address] Dr. Garcia ChangEGFR-AF HUNGARIAN>60Normal>=60The [facility]on HospitalComment on above:Performed By: #### PSAD, FOL, FERR, FETIBC #### [facility] [address] [place] [address] Dr. Radha FloresGFR-NON AF CRERSIGZ36 mL/min/1.03u7Uqzvabagix low>=60The [facility] HospitalComment on above:Performed By: #### PSAD, FOL, FERR, FETIBC #### [facility] [address] [place] [address] Dr. Radha BrownGlucose [Mass/Vol]137 mg/dLCritically otai02-091Yvx [facility] HospitalComment on above:Performed By: #### PSAD, FOL, FERR, FETIBC #### [facility] [address] [place] [address] Dr. Radha BrownPotassium [Moles/Vol]4.2 mmol/LNormal3.5-5.1[facility] Comment on above:Performed By: #### PSAD, FOL, FERR, FETIBC #### [facility] [address] [place] [address] Dr. Radha BrownSodium [Moles/Vol]138 mmol/DZnxeew934-375Tra [facility] Comment on above:Performed By: #### PSAD, FOL, FERR, FETIBC #### [facility] [address] [place] [address] Dr. Radha BrownUrea nitrogen [Mass/Vol]22.0 mg/dLCritically high7.0-18.0The [facility] HospitalComment on above:Performed By: #### PSAD, FOL, FERR, FETIBC #### [facility] [address] [address] [address] Radha BrownUrea nitrogen/Creatinine [Mass ratio]18.5 mg/mgNoBlanchard Valley Health System Blanch[facility] Valley HospitalComment on above:Performed By: #### PSAD, FOL, FERR, FETIBC #### [facility] [address] [address] [address] Radha BrownGLYCOHEMOGLOBIN A1Con [id number] RECOMMENDATIONSEE BELOWNormal The [facility] Avon HospitalComment on above:Result Comment: ADA RECOMMENDED LIMIT 4.0 - 6.0 ADA THERAPEUTIC TARGET < 7.0 ACTION SUGGESTED > 7.0Performed By: #### A1C #### [facility] [address] [address] [address] Radha BrownGlucose [Mass/Vol]154 mg/dLNoBlanchard Valley Health System Blanchard Valley HospitalComment on above:Performed By: #### A1C #### [facility] [address] [address] [address] Radha BrownHbA1c (Bld) [Mass fraction]7.0 %Critically high4.5-6.2The [facility]on HospitalComment on above:Performed By: #### A1C #### [facility] [address] [address] [address] Radha Brown Vital Signs Date TimeVital SignValuePerforming NrocvqhvvSjyqbgxy16-46-3085 09:50-0400 Diastolic blood xunogcok45 mm[Hg]Roadhop DO Work Phone: [facility]10-22-2025 09:50-0400 Heart rate91 /minBenjamin Ball DO Work Phone: [facility]10-22-2025 09:50-0400 Respiratory rate16 /minBenjamin Ball DO Work Phone: [phone]10-22-2025 09:50-0400 SaO2% (BldA) [Mass fraction]96 %Nico [employer] DO Work Phone: [phone]10-22-2025 09:50-0400 Systolic blood yosweklo84 mm[Hg]Nico [employer] DO Work Phone: [phone])[address] [place], [place] 2967610-22-2025 07:31-0400 Body .8 cmBenjamin Ball DO Work Phone: [phone])[address] [place], [place] 2967610-22-2025 07:31-0400 Body aoesiz84.18 kgBenjamin Ball DO Work Phone: [phone])[address] [place], [place] 2967610-06-2025 14:52-0400 Body iqakcs049.26 cmBenjamin Ball DO Work Phone: [phone])[address] [place], [place] 2967610-06-2025 14:52-0400 Body mass index (BMI) [Ratio]27.6 kg/m9Vneohkja Ball DO Work Phone: [phone])[address] [place], [place] 2967610-06-2025 14:52-0400 Body .99 kgBenjamin Ball DO Work Phone: [phone])[address] [place], [place] 2967610-06-2025 14:52-0400 Diastolic blood avwdybug60 mm[Hg]Nico Ball DO Work Phone: 1(419)[address] [place], [place] 2967610-06-2025 14:52-0400 Heart rate67 /minBenjamin Ball DO Work Phone: [phone])[address] [place], [place] 2967610-06-2025 14:52-0400 Respiratory rate12 /minBenjamin Ball DO Work Phone: [phone])[address] [place], [place] 2967610-06-2025 14:52-0400 Systolic blood cglcytzt728 mm[Hg]Nico Ball DO Work Phone: [phone])[address] [place], [place] 2967609-16-2025 13:35-0400 Body .26 cmBenjamin Ball DO Work Phone: [phone])[address] [place], [place] 2967609-16-2025 13:35-0400 Body mass index (BMI) [Ratio]27.5 kg/c9Hvaeczyp Ball DO Work Phone: 1419)[address] [place], [place] 2967609-16-2025 13:35-0400 Body uhlnve36.53 kgBenjamin Ball DO Work Phone: [phone] [place], [place] 7140709-16-2025 13:35-0400 Diastolic blood ufatvhsw43 mm[Hg]Nico Ball DO Work Phone: 1(380)[facility] [place], [place] 7140709-16-2025 13:35-0400 Heart rate71 /minBenjamin Ball DO Work Phone: 1419)[address] [place], [place] 2967609-16-2025 13:35-0400 Respiratory rate12 /minBenjamin Ball DO Work Phone: 1419)[address] [place], [place] 2967609-16-2025 13:35-0400 Systolic blood kcmjrfso375 mm[Hg]Nico Ball DO Work Phone: 1(840)[address] [place], [place] 2967609-10-2025 13:50-0400 Body pwrnow975.26 cmBenjamin Ball DO Work Phone: 1419)[address] [place], [place] 2967609-10-2025 13:50-0400 Body mass index (BMI) [Ratio]28 kg/w5Idifwtca Ball DO Work Phone: 1419)[address] [place], [place] 2967609-10-2025 13:50-0400 Body zsydpb46.95 kgBenjamin Ball DO Work Phone: [phone])[address] [place], [place] 2967609-10-2025 13:50-0400 Diastolic blood xlhlnojr15 mm[Hg]Nico Ball DO Work Phone: 1(543)[address] [place], [place] 2967609-10-2025 13:50-0400 Heart rate60 /minBenjamin Ball DO Work Phone: 1419)[facility] [place], [place] 7140709-10-2025 13:50-0400 Respiratory rate12 /minBenjamin Ball DO Work Phone: 1419)[address] [place], [place] 2967609-10-2025 13:50-0400 Systolic blood zmxlacts239 mm[Hg]Nico Ball DO Work Phone: 1419)[address] [place], [place] 2967607-30-2025 13:34-0400 Body vdniua775.26 cmBenjamin Ball DO Work Phone: [phone] [place], [place] 7140707-30-2025 13:34-0400 Body mass index (BMI) [Ratio]27.6 kg/z0Qsuhgnjc Ball DO Work Phone: 1419)[facility] [place], [place] 7140707-30-2025 13:34-0400 Body zqxsox06.93 kgBenjamin Ball DO Work Phone: 1419)[address] [place], [place] 2967607-30-2025 13:34-0400 Diastolic blood mm[Hg]Nico Ball DO Work Phone: 1419)[address] [place], [place] 2967607-30-2025 13:34-0400 Heart rate88 /minBenjamin Ball DO Work Phone: 1(322)[address] [place], [place] 2967607-30-2025 13:34-0400 Respiratory rate12 /minBenjamin Ball DO Work Phone: 1(532)[address] [place], [place] 2967607-30-2025 13:34-0400 Systolic blood usggrwbb475 mm[Hg]Nico Ball DO Work Phone: 1419)[address] [place], [place] 2967607-07-2025 11:15-0400 Body nyvjva725.26 cmBenjamin Ball DO Work Phone: 1(393)[address] [place], [place] 2967607-07-2025 11:15-0400 Body mass index (BMI) [Ratio]28 kg/g0Lvyjsghv Ball DO Work Phone: 1([phone])[address] [place], [place] 2967607-07-2025 11:15-0400 Body .95 kgBenjamin Ball DO Work Phone: 1419)[address] [place], [place] 2967607-07-2025 11:15-0400 Diastolic blood dasjrpkx78 mm[Hg]Nico Ball DO Work Phone: 1419)[address] [place], [place] 2967607-07-2025 11:15-0400 Heart rate58 /minBenjamin Ball DO Work Phone: 1419)[address] [place], [place] 2967607-07-2025 11:15-0400 Respiratory rate18 /minBenjamin Ball DO Work Phone: [phone]07-07-2025 11:15-0400 Systolic blood wzvvbcqo36 mm[Hg]Nico Ball DO Work Phone: [facility]03-25-2025 14:34-0400 Body mass index (BMI) [Ratio]29.46 kg/m2ANATOLY Bartlett MD Work Phone: [facility]03-25-2025 14:34-0400Body temperature 96.49 [degF]ANATOLY Bartlett MD Work Phone: [facility]03-25-2025 14:34-0400Body jzheja85.8 kgANATOLY Bartlett MD Work Phone: [facility]03-25-2025 14:34-0400Diastolic blood piavpaux74 mm[Hg]ANATOLY Bartlett MD Work Phone: [facility]03-25-2025 14:34-0400Heart rate60 /min ANATOLY Bartlett MD Work Phone: [facility]03-25-2025 14:34-0400Respiratory rate 18 /MarshallANATOLY Bartlett MD Work Phone: [facility]03-25-2025 14:34-7288UeH0% (BldA) [Mass fraction]97 %ANATOLY Bartlett MD Work Phone: [facility]03-25-2025 14:34-0400Systolic blood lgmpjwux501 mm[Hg]ANATOLY Bartlett MD Work Phone: [facility]03-06-2025 09:57-0500Body hapmjy463.26 cmSam[facility]03-06-2025 09:57-0500Body mass index (BMI) [Ratio]29.9 kg/w6DduorzoshSamaritan North Health Center03-06-2025 09:57-0500Body .13 kgSamaritan North Health Center03-06-2025 09:57-0500Diastolic blood xyjwkfpl09 mm[Hg][facility]03-06-2025 09:57-0500 Heart rate65 /[facility]03-06-2025 09:57-0500 Respiratory rate14 /[facility]03-06-2025 09:57-0500 SaO2% (BldA) [Mass fraction]95 %[facility]03-06-2025 09:57-0500Systolic blood iwrbqzpx581 mm[Hg][facility] 08-09-2024 09:14-0500Body mass index (BMI) [Ratio]30.81 kg/m2ANATOLY Bartlett MD Work Phone: [facility]11-22-2024 09:14-0500Body temperature 97.39 [degF]ANATOLY Bartlett MD Work Phone: [facility]11-22-2024 09:14-0500Body ifzvcs07 kg ANATOLY Bartlett MD Work Phone: [facility]11-22-2024 09:14-0500Diastolic blood fvjqoauz75 mm[Hg]ANATOLY Bartlett MD Work Phone: [facility]11-22-2024 09:14-0500Heart rate70 /min ANATOLY Bartlett MD Work Phone: [facility]11-22-2024 09:14-0500Respiratory rate 16 /MarshallANATOLY Bartlett MD Work Phone: [facility]11-22-2024 09:14-3451CsY7% (BldA) [Mass fraction]97 %ANATOLY Bartlett MD Work Phone: [facility]11-22-2024 09:14-0500Systolic blood qipvfqvn446 mm[Hg]ANATOLY Bartlett MD Work Phone: [facility]11-12-2024 11:20-0500Body nysvha614.26 cmSamaritan North Health Center11-12-2024 11:20-0500Body mass index (BMI) [Ratio]31.3 kg/b5FfirtvjbvSamaritan North Health Center11-12-2024 11:20-0500Body zaskbn48.27 kgSamaritan North Health Center11-12-2024 11:20-0500Diastolic blood czpnnlao96 mm[Hg][facility]11-12-2024 11:20-0500 Heart rate62 /[facility]11-12-2024 11:20-0500 Respiratory rate12 /[facility]11-12-2024 11:20-0500 Systolic blood qamlvhkb174 mm[Hg][facility]07-10-2024 11:06-0400Body tepefh952.26 cmSamaritan North Health Center07-10-2024 11:06-0400Body mass index (BMI) [Ratio]32.3 kg/b7QxotmexhkSamaritan North Health Center07-10-2024 11:06-0400Body ccxkli72.33 kgSamaritan North Health Center 03-27-2024 11:06-0400Diastolic blood yebrxdgz21 mm[Hg][facility]07-10-2024 11:06-0400Heart rate72 /[facility] 03-27-2024 11:06-0400Respiratory rate20 /[facility] 03-27-2024 11:06-0400Systolic blood suunqhgd07 mm[Hg][facility]05-30-2024 09:44-0400Body mass index (BMI) [Ratio]31.83 kg/m2ANATOLY Bartlett MD Work Phone: [facility]05-30-2024 09:44-0400Body temperature 97.3 [degF]ANATOLY Bartlett MD Work Phone: [facility]05-30-2024 09:44-0400Body ivtwbt73.2 kgANATOLY Bartlett MD Work Phone: [facility]05-30-2024 09:44-0400Diastolic blood raxjwoqg35 mm[Hg]ANATOLY Bartlett MD Work Phone: [facility]05-30-2024 09:44-0400Heart rate66 /min ANATOLY Bartlett MD Work Phone: [facility]05-30-2024 09:44-0400Respiratory rate 18 /MarshallANATOLY Bartlett MD Work Phone: [facility]05-30-2024 09:44-0400Systolic blood zrwholqr514 mm[Hg]ANATOLY Bartlett MD Work Phone: [facility]11-30-2023 10:03-0500Body temperature 96.91 [degF]ANATOLY Bartlett MD Work Phone: [facility]11-30-2023 10:03-0500Body gpcuxw341.78 kgANATOLY Bartlett MD Work Phone: [facility]11-30-2023 10:03-0500Diastolic blood mm[Hg]ANATOLY Bartlett MD Work Phone: [facility]11-30-2023 10:03-0500Heart rate62 /min ANATOLY Bartlett MD Work Phone: [facility]11-30-2023 10:03-0500Respiratory rate 16 /MarshallANATOLY Bartlett MD Work Phone: [facility]11-30-2023 10:03-7332XtP6% (BldA) [Mass fraction]95 %ANATOLY Bartlett MD Work Phone: [facility]11-30-2023 10:03-0500Systolic blood xcovclvi943 mm[Hg]ANATOLY Bartlett MD Work Phone: [facility]11-08-2023 11:00-0500Body .26 cmBenseng [employer] Other [employer] Other 11-08-2023 11:00-0500Body mass index (BMI) [Ratio] 33.37 kg/g9Ogfhapyd Ball Other [employer] Other 11-08-2023 11:00-0500Body koztqr493.51 kgBenyeisonmin Ball Other [employer] Other 11-08-2023 11:00-0500Diastolic blood dvayklet08 mm[Hg] Nico Ball Other [employer] Other 11-08-2023 11:00-0500Respiratory rate12 /minBenjamin Ball Other [employer] Other 11-08-2023 11:00-0500Systolic blood cetjpnbh695 mm[Hg] Nico Ball Other [employer] Other 03-14-2023 14:30-0400Body qbqamr023.26 cmBenjamin Ball Other [employer] Other 03-14-2023 14:30-0400Body mass index (BMI) [Ratio] 34.58 kg/g3Ndhuwcit Ball Other [employer] Other 03-14-2023 14:30-0400Body .23 kgBenjamin Ball Other [employer] Other 03-14-2023 14:30-0400Diastolic blood znmreday96 mm[Hg] Nico Ball Other [employer] Other 03-14-2023 14:30-0400Respiratory rate12 /minBenjamin Ball Other [employer] Other 03-14-2023 14:30-0400Systolic blood mm[Hg] Nico Ball Other [employer] Other 02-14-2023 11:22-0500Blood Pressure LocationJENNIFER DIALLO [facility]02-14-2023 11:22-0500Diastolic blood gtpwcpfy47 mm[Hg]HENRIQUE LANDRUM [facility]02-14-2023 11:22-0500Heart rate68 /minJENNIFER DIALLO [facility]02-14-2023 11:22-0500Respiratory rate16 /minJENNIFER DIALLO [facility]02-14-2023 11:22-0500Systolic blood fynsehgu435 mm[Hg]HENRIQUE LANDRUM [facility]12-01-2022 10:22-0500Body anqbrandyco74.21 [degF]ANATOLY Bartlett MD Work Phone: [facility]12-01-2022 10:22-0500Body guegeq599.23 kgNA Adolfo WILSON Work Phone: [facility]12-01-2022 10:22-0500Diastolic blood dhsiyagq47 mm[Hg]ANATOLY Bartlett MD Work Phone: [facility]12-01-2022 10:22-0500Heart rate78 /min ANATOLY Bartlett MD Work Phone: [facility]12-01-2022 10:22-0500Respiratory rate 18 /MarshallANATOLY Bartlett MD Work Phone: [facility]12-01-2022 10:22-4906SvN2% (BldA) [Mass fraction]98 %ANATOLY Bartlett MD Work Phone: [facility]12-01-2022 10:22-0500Systolic blood hvraxrfi497 mm[Hg]ANATOLY Bartlett MD Work Phone: [facility]06-02-2022 09:51-0400Body temperature 96.1 [degF]ANATOLY Bartlett MD Work Phone: [facility]06-02-2022 09:51-0400Body xvvyey043.7 kgANATOLY Bartlett MD Work Phone: [facility]06-02-2022 09:51-0400Diastolic blood bedgwnno12 mm[Hg]ANATOLY Bartlett MD Work Phone: [facility]06-02-2022 09:51-0400Heart rate66 /min ANATOLY Bartlett MD Work Phone: [facility]06-02-2022 09:51-0400Respiratory rate 16 /MarshallANATOLY Bartlett MD Work Phone: [facility]06-02-2022 09:51-9942NcS9% (BldA) [Mass fraction]97 %ANATOLY Bartlett MD Work Phone: [facility]06-02-2022 09:51-0400Systolic blood gkqcxhve234 mm[Hg]ANATOLY Bartlett MD Work Phone: [facility] Encounters Encounter DateEncounter TypeCare ProviderFacilityStart: 07-09-2025 End: 71-69-0166nstqfjrpnjCxftcpy J DittyFacility:[facility] Hospitaltart: 02-97-6520Mlt-patient / Non-visitTevin Peralta MD-[facility] Work Phone: Start: 06-23-2025 End: 30-55-0481lkpfyqokiiDtwsivek Ball DO Work Phone: [facility] Work Phone: Start: 06-23-2025 End: 00-17-2143Wziyvyl encounter procedureBenseng Ball DO-[facility] Work Phone: Start: 06-17-2025 End: 81-49-3975lfedxifbcuMJDEMMQS E BALLFacility:[facility]ustart: 05-20-2649Vzv-patient / Non-visitCatherine Mathieu SALES DEPARTMENT MANAGER-[facility] Work Phone: Start: 73-78-1545Gge-patient / Non-visitBrigid Avila MD-[facility] Work Phone: Start: 06-03-2025 End: 03-01-4321vygzeulsptAzhftwvs Ball DO Work Phone: [facility] Work Phone: Start: 06-03-2025 End: 98-70-4054Eziznkt encounter procedureBenjamin Ball DO-[facility] Work Phone: Start: 48-67-6827Jjc-patient / Non-visitBenjamin Ball DO-[facility] Work Phone: Start: 04-75-4531Pdj-patient / Non-visitCatherine Mathieu [facility] Work Phone: Start: 05-28-2025 End: 90-69-8315qzpispxbdeSzjepjsq Ball DO Work Phone: [facility] Work Phone: Start: 05-28-2025 End: 20-96-4864Pobsrdi encounter procedureBenjamin Ball DO-[facility] Work Phone: Start: 04-16-2025 End: 69-25-9268oxzehraayrRtipbhfi Ball DO Work Phone: [facility] Work Phone: Start: 04-16-2025 End: 95-30-5871Owdawnh encounter procedureBenjamin Ball DO-[facility] Work Phone: Start: 03-24-2025 End: 97-22-7971ijizqkiipkVgezpgie Ball DO Work Phone: [facility] Work Phone: Start: 03-24-2025 End: 79-63-9202Disqhgd encounter procedureNico Mago [facility]OOK[facility] Work Phone: Start: 01-99-9611Neg-patient / Non-visitBeclaudiazonia Lino DO-[facility] Work Phone: Start: 12-10-2024 End: 02-02-2878bdecrekpmyPDICQFHO E MAGOFacility:[facility] Campustart: 12-10-2024 End: 66-16-2476Drdwuq outpatient visit 15 minutesG Dimitry Bartlett MD Work Phone: Radiation OncologyComment on above:Cancer of prostate w/med recur risk (T2b-c or [place] 7 or PSA 10-20) (HCC) (Primary Dx)Start: 11-21-2024 End: 79-81-3663jrddqmzgsdExbfvfcspSycamore Medical Center Work Phone: Start: 11-21-2024 End: 96-66-9336Uczacze encounter procedureAtrium Health University City Physician GroupK[facility] Work Phone: Start: 08-09-2024 End: 82-56-0919uaphyvdfbnZ DIMITRY RASCONacility:[facility] Start: 08-09-2024 End: 82-55-9498Vwtcciu encounter procedureRonda Bartlett MD Work Phone: Radiation OncologyComment on above:Cancer of prostate w/med recur risk (T2b-c or [place] 7 or PSA 10-20) (HCC) (Primary Dx)Start: 07-30-2024 End: 37-05-0696twtguqtkihJnfiererrSycamore Medical Center Work Phone: Start: 07-30-2024 End: 09-53-3533Thygqmo encounter procedureAtrium Health [facility] GroupK[facility] [facility] Work Phone: Start: 40-47-9745Mfkzolf encounter procedureMercy Health St. Anne Hospitaltart: 23-54-8349Sqh-patient / Non-visitKristofer Physician GroupKettering Health Main Campus Work Phone: Start: 07-03-2024 End: 88-72-8975UvtjutTjqgegwu D Zahler DO Work Phone: noms NB OPHTComment on above:Age-related nuclear cataract of both eyesStart: 07-02-2024 End: 83-10-6821OagtgyZydhufbq Kinsey Zahler DO Work Phone: noms NB OPHTComment on above:Age-related nuclear cataract of both eyes (Primary Dx)Start: 05-14-2024 End: 97-26-8415Xsfzqm flowsheetJoarturo Euceda Zahler DO Work Phone: noms NB OPHTStart: 05-14-2024 End: 87-73-2174Zcxlso flowsheetJoarturo Euceda Zahler DO Work Phone: noms NB OPHTStart: 05-14-2024 End: 25-99-5017csenhmpzsjMABBMYPT D ZAHLERNot AvailableStart: 03-27-2024 End: 99-91-6981syyfbfkgamIsqnnfkvsSycamore Medical Center Work Phone: Start: 03-27-2024 End: 67-04-5335Temybhs encounter procedureAt[facility] Work Phone: Start: 22-38-1506Zbz-patient / Non-visitAtrium Health University [facility] Work Phone: Start: 03-05-2024 End: 29-02-9500metdrdyzooGSBOPBXM E PERRYFacility:EU BellevueStart: 03-05-2024 End: 85-18-6380Lvwfgey encounter procedureJENNIFER E DIALLO [facility] start: 02-15-2024 End: 37-36-5341Crcsdws encounter procedureG Dimitry Bartlett MD Work Phone: Radiation OncologyComment on above:Cancer of prostate w/med recur risk (T2b-c or Asaf 7 or PSA 10-20) (HCC) (Primary Dx)Start: 69-55-0275Xkh-patient / Non-visitFirsentara obici hospital Physician [facility] Work Phone: Start: 08-17-2023 End: 84-61-6004Hbxgsxy encounter procedureG Dimitry Bartlett MD Work Phone: Radiation OncologyComment on above:Malignant neoplasm of prostate (HCC) (Primary Dx)Start: 07-26-2023 End: 73-40-0951eyfqsklarvAyigkypo Mago Other [employer] Other Start: 08-85-6824Jrfmwax encounter procedureBenseng HaysG [facility] ClinicStart: 07-17-2023 End: 42-60-4208zzdjfzwqvtTvfzydnl Ball Other [employer] Other Start: 81-57-2780Vzffcwzdb encounterBenjazonia HaysG [facility] Medical ClinicStart: 04-04-2023 End: 25-06-9764pdnhozfyaeIyldfrkm Ball Other [employer] Other Start: 22-80-3735Vgvmburyj encounterBenjazonia HaysG [facility] Medical ClinicStart: 01-05-2023 End: 21-51-4345vusfbuhlckIF NICO LINOFacility:R3Cgsbv: 11-29-2022 End: 56-25-2066exiqulrvymHL NICO MAGOBacktrace I/O Other Start: 02-56-0845Hfekax outpatient visit 25 minutes Nico SaúlG [facility]ago Medical ClinicStart: 11-01-2022 End: 28-18-7493Uzacrsb encounter procedureHENRIQUE LANDRUM [facility] start: 08-18-2022 End: 98-72-9516diiaydnrjlWwdie Martinez APRN.CNP Work Phone: Hematology/OncologyComment on above:Prostate cancer (HCC)Start: 08-18-2022 End: 68-50-6081Lneykdh encounter procedureIrlanda Castro APRN.CNP Work Phone: SANDUSKYComment on above:Prostate cancer (HCC) (Primary Dx)Start: 07-29-2022 End: 14-93-7109howtppgolvNJSerene LINOFacility:Z2Dqegz: 35-03-7180Osqfn health examinationBeclaudiazonia Lino Other noBacktrace I/O Other Start: 02-17-2022 End: 84-13-0326Qrkoxxv encounter procedureG Dimitry Bartlett MD Work Phone: Radiation OncologyComment on above:Prostate cancer (HCC) (Primary Dx)Start: 02-16-2022 End: 09-51-8828ncdwfdagbmVBSerene LINOFacility:M9Pwwez: 30-78-7232iuwwpscuwy DR VICKI RASCONacility:P7Wvohy: 08-05-2021 End: 98-71-0045Ipdkhatinz hospital visit by physicianPet Ct Scan Kayce Work Phone: Radiology Pet CTStart: 07-19-2021 End: 83-05-1332Hbj-procedure evaluation checkNico Lino Other noBacktrace I/O Other Start: 10-24-2014 End: 07-59-5157Dqlpqha encounterDEFAULT PHYSICIANFacility:[facility] Procedures DateProcedureProcedure DetailPerforming ClinicianStart: 15-57-6033VIL screening Ccf ProviderStart: 92-97-6784FQM screeningCcf ProviderStart: 24-56-9708Fke bmtry prtl coher intrfrmtry io lens pwr Marilu Kenny DO Work Phone: Start: 05-14-2024 End: 84-28-3618Ktkpy medical xm&eval compre new pt 1/> vstAge-related nuclear cataract of both eyesConchita Kenny DO Work Phone: comment on above:Age-related nuclear cataract of both eyes (Primary Dx)Start: 83-15-9179VBF screeningG Dimitry Bartlett MD Work Phone: Start: 16-48-0054DVR screeningCcf ProviderStart: 07-29-2022 End: 42-70-0567WIW screeningCcf ProviderComment on above:Performed By: #### PSAD, FOL, FERR, FETIBC #### [facility] [address] [place] [address] Dr. Radha BrownStart: 58-02-4776Ubtyf depression screening Pema Bartlett MD Work Phone: Start: 02-16-2022 End: 16-72-4194URM screeningCcf ProviderComment on above:Performed By: #### PSAD #### [facility] [address] [place] [address] Dr. Radha BrownStart: 76-10-3041Gepdhhhqzrzoj implant (physical object)HENRIQUE LANDRUM Start: 47-22-4613Hetcog of prostateHENRIQUE LANDRUM Start: 59-24-7061VmnqpduzyvrIXPYQQPQ DIALLO Start: 46-23-8825Aqzmnat examination of patientBenjamin Ball Other Start: 88-04-2841Kwsoifxdw for malignant neoplasm of colonBenjamin Ball Other Start: 22-80-9920Qbbumvwzl for malignant neoplasm of prostateBenjamin Ball Other Angioplasty of blood vesselJENNROBB JUAREZRY AppendectomyJENNIFER DIALLO Depression screeningBenjamin Ball Other Screening for malignant neoplasm of prostateNico Lino Other Plan of Treatment DateCare ActivityDetailAuthorStart: 30-60-7649Vbtie microalbumin profile DTaP,Tdap,Td Vaccine (2 - Td or Tdap)[facility] Hospitaltart: 96-24-8631OqhvbpdwgMercy Health St. Anne Hospitaltart: 06-17-2025 End: 90-05-2500Jgyyrdc encounter occrbgazr93/30/2025 11:30 AM EDT Office Visit Radiation Oncology [address] [place] [address] Ronda Bartlett MD [address] [place] [address] Labs to be done at [facility] priorRadiation Oncology Comment on above:Labs to be done at [facility] priorStart: 06-12-2025 End: 47-33-6288Xjuzadnxzmew [Mass/volume] in Serum or PlasmaTESTOSTERONE, TOTAL BY IMMUNOASSAY (ADULT MALES, OR INDIVIDUALS ON TESTOSTERONE THERAPY) Lab Routine Cancer of prostate w/med recur risk (T2b-c or Asaf 7 or PSA 10-20) ([facility]) Expected: 06/12/2025, Expires: 09/11/2025City HospitalComment on above: Expected: 06/12/2025, Expires: 09/11/2025Start: 41-86-3191Bafudas referral [facility] Work Phone: Start: 04-11-2025 End: 56-29-9261Qdwogywy specific Ag [Mass/volume] in Serum or PlasmaPROSTATE- SPECIFIC ANTIGEN DIAGNOSTIC Lab Routine Cancer of prostate w/med recur risk (T2b-c or [place] 7 or PSA 10-20) (HCC) Expected: 04/11/2025 (Approximate), Expires: 07/11/2025[facility] Work Phone: Comment on above:Expected: 04/11/2025 (Approximate), Expires: 07/11/2025Start: 12-10-2024 End: 77-92-8762Zkbvrbz encounter honykaplw94/25/2025 2:45 PM EDT Office Visit Radiation Oncology [address] [place] [address] Ronda Bartlett MD [address] [place] [address] 4 month follow upRadiation OncologyComment on above:4 month follow upStart: 12-07-2024 End: 55-95-6229Nfaqxfal specific Ag [Mass/volume] in Serum or PlasmaPROSTATE- SPECIFIC ANTIGEN DIAGNOSTIC Lab Routine Cancer of prostate w/med recur risk (T2b-c or Asaf 7 or PSA 10-20) ([facility]) Expected: 12/07/2024, Expires: 03/08/2025[facility] Work Phone: Comment on above:Expected: 12/07/2024, Expires: 03/08/2025Start: 12-07-2024 End: 80-35-6126Rxzhsxvqrxsy [Mass/volume] in Serum or PlasmaTESTOSTERONE, TOTAL BY IMMUNOASSAY (ADULT MALES, OR INDIVIDUALS ON TESTOSTERONE THERAPY) Lab Routine Cancer of prostate w/med recur risk (T2b-c or Asaf 7 or PSA 10-20) ([facility]) Expected: 12/07/2024, Expires: 03/08/2025City HospitalComment on above: Expected: 12/07/2024, Expires: 03/08/2025Start: 81-61-1948Housuqg Directive DiscussionAdvance Directive DiscussionClekettering health washington township ClinicStart: 08-17-2024 End: 37-58-1786Hmdvngpi specific Ag [Mass/volume] in Serum or PlasmaPROSTATE- SPECIFIC ANTIGEN DIAGNOSTIC Lab Routine Cancer of prostate w/med recur risk (T2b-c or [place] 7 or PSA 10-20) ([facility]) Expected: 08/17/2024, Expires: 11/16/2024[facility] Work Phone: Comment on above:Expected: 08/17/2024, Expires: 11/16/2024Start: 08-08-2024 End: 49-80-9294Whdwvug encounter /21/2024 9:15 AM EST Office Visit Radiation Oncology [address] [place] [address] Ronda Bartlett MD [address] [place] [address] [place] [address] 6 month rvRadiation OncologyComment on above:6 month rvStart: 53-94-2968Gxwuankm ScreeningDiabetes ScreeningMercy Health Kings Mills Hospitaltart: 06-24-2024 End: 30-83-5517Ketnoxk encounter wfjbkiqts79/07/2024 9:05 AM EDT Procedure Visit [facility] EXT DEP Conchita Kenny, DO [address] [place] [address] NOMS EXT DEPStart: 06-10-2024 End: 06-13-9435Efvcitm encounter erycplrgm17/23/2024 10:25 AM EDT Procedure Visit [facility] EXT DEP Conchita Kenny, DO [address] [place] [address] NOMS EXT DEPStart: 02-98-5160Urkhs- 19 Vaccine ( season)Covid-19 Vaccine ( season)[facility] Hospitaltart: 17-33-5515Zeujjalqv vaccinationInfluenza Vaccine (#1)[facility]tart: 05-14-2024 End: 30-35-4629Nwuelrj encounter rigodftjd32/27/2024 1:45 PM EDT Office Visit [facility] NB OPHT [address] [place] [address] Conchita Kenny, DO [address] [place] [address] ArrivedNOMS NB OPHTComment on above:ArrivedStart: 02-15-2024 End: 06-09-7532Bmdeakrm specific Ag [Mass/volume] in Serum or Plasma PSA/PROSTSPECAG DIAG Lab Routine Malignant neoplasm of prostate (HCC) Expected: 02/15/2024 (Approximate), Expires: 05/16/2024[facility] Work Phone: Comment on above:Expected: 02/15/2024 (Approximate), Expires: 05/16/2024Start: 22-75-4938Qcelu-19 Vaccine ()Covid- 19 Vaccine ()[facility] Hospitaltart: 24-84-2343Ybzgxqh Directive DiscussionAdvance Directive DiscussionMercy Health Kings Mills Hospitaltart: 48-63-4494Gcxxfieflh Health ScreeningBehavioral Health ScreeningGalion Hospital Start: 08-18-2023 End: 12-66-5255Vhgaytye specific Ag [Mass/volume] in Serum or Plasma PSA/PROSTSPECAG DIAG Lab Routine Prostate cancer (HCC) Expected: 08/18/2023, Expires: 10/18/2023[facility] Work Phone: Comment on above:Expected: 08/18/2023, Expires: 10/18/2023Start: 60-98-2743Fdomv depression screening assessmentDEPRESSION SCREENINGMercy Health Kings Mills Hospitaltart: 68-45-1288Zdigkxt Directive DiscussionAdvance Directive DiscussionMercy Health Kings Mills Hospitaltart: 10-09-5753Zkbcxsxjgz Assessment Depression AssessmentMercy Health Kings Mills Hospitaltart: 08-19-2022 End: 83-08-8449Wivdxnbp specific Ag [Mass/volume] in Serum or Plasma PSA/PROSTSPECAG DIAG Lab Routine Prostate cancer (HCC) Expected: 08/19/2022 (Approximate), Expires:10/19/2022[facility] Work Phone: Comment on above:Expected: 08/19/2022 (Approximate), Expires: 10/19/2022Start: 50-60-5038KYSGERN DIRECTIVE DISCUSSIONADVANCE DIRECTIVE DISCUSSIONMercy Health Kings Mills Hospitaltart: 34-97-9024KNTRMWMDOX ASSESSMENT DEPRESSION ASSESSMENTMercy Health Kings Mills Hospitaltart: 18-25-0615QMXYD-19 VACCINE (3 - Booster for Moderna series)COVID-19 VACCINE (3 - Booster for Moderna series) [facility]: 52-43-0973SME Vaccine (1 - 1-dose 75+ series)RSV Vaccine (1 - 1-dose 75+ series)[facility]: 72-10-2469Kunwhxshfpfl Vaccine: 50+ (2 of 2 - PCV)Pneumococcal Vaccine: 50+ (2 of 2 - PCV)[facility]: 71-74-6520Xlviphyvujpg Vaccine: 65+ (2 - PCV)Pneumococcal Vaccine: 65+ (2 - PCV)[facility]: 84-69-8125Zywevcluyyqx Vaccine: 65+ (2 of 2 - PCV) Pneumococcal Vaccine: 65+ (2 of 2 - PCV)[facility]: 10-04-2019 Pneumococcal Vaccine: 65+ Years (2 of 2 - PCV)Pneumococcal Vaccine: 65+ Years (2 of 2 - PCV)[facility] HospitalStart: 17-81-6785MAWBYTVKKZBP: 65+ (2 - PCV) PNEUMOCOCCAL: 65+ (2 - PCV)[facility]: 56-62-1391PUD Vaccine (1 - 1- dose 60+ series)RSV Vaccine (1 - 1-dose 60+ series)[facility]: 26-70-8318REITDCLA VACCINE (1 of 2)SHINGRIX VACCINE (1 of 2)[facility] Start: 21-38-9675KAHNJYLL SCREENDIABETES SCREENMercy Health Kings Mills Hospitaltart: 1964 SHINGRIX VACCINE (1 of 2)SHINGRIX VACCINE (1 of 2)[facility]: 99-92-1295Tswvb microalbumin profileDTAP,TDAP,TD (1 - Tdap)[facility] Start: 28-65-5425Aemmpyj ScreeningAnxiety ScreeningMercy Health Kings Mills Hospitaltart: 91-33-5965Kfeqdtsjzu ScreeningDepression ScreeningMercy Health Kings Mills Hospitaltart: 60-58-1023WHOYVZCNH C SCREENINGHEPATITIS C SCREENINGMercy Health Kings [facility] Hospitaltart: 93-55-0915Dairjdjbs C screeningHepatitis C ScreeningGalion Hospital Comprehensive metabolic 2000 panel - Serum or PlasmaSamaritan North Health CenterComprehensive metabolic 2000 panel - Serum or PlasmaSamaritan North Health CenterComprehensive metabolic 2000 panel - Serum or PlasmaSamaritan North Health CenterComprehensive metabolic 2000 panel - Serum or Plasma [facility] Health CenterCT Abdomen and Pelvis WO contrastSamaritan North Health CenterMicroalbumin [Mass/volume] in UrineSamaritan North Health CenterPatient EducationAtrium Health University City Hemorrhoids Discharge Instructions Know your [facility] Work Phone: Patient referralHocking Valley [facility] Hospital Work Phone: XR Hip - right 2 [facility]XR Lumbar spine 2 or 3 [facility] Immunizations Immunization DateImmunizationNotesCare TxeipkumFfgtcutl87-19-3583gbsisrlni, high dose seasonal, preservative-freeSamaritan North Health Center09-27-2023 COVID-19 Vaccine Pfizer - Documentation Purposes OnlyNico Lino Other [facility]09-27-2023Flu Shot - Documentation Purposes OnlyBederrick Lino Other [employer] Other [id number] virus vaccine, unspecified formulationConchita Kenny DO Work Phone: [facility] Community HospitalIeinvyldco22-28-8614asnplqt toxoid, reduced diphtheria toxoid, and acellular pertussis vaccine, adsorbedBenseng Lino Other [employer] Other 11101214-35-3221wgadvyelw (aIIV4) vaccine, age 65+ yr, quadrivalent, PF (FLUAD QUAD)NA Adolfo WILSON Work Phone: [facility] HospitalUlnohy73-01-8983vgoefagxw virus vaccine, split virus (incl. purified surface antigen)Nico Lino Other [employer] Other 11083722-60-0755yeowtwskm virus vaccine, unspecified formulationHENRIQUE LANDRUM [facility]11-05-2022SARS-CoV-2 (COVID-19) mRNAMUL.ORD![id number] DIALLO [facility]08-18-2022SARS-CoV-2 mRNA (lraxgabuwfu-irzf-wwllaiz) vaccineJENNIFER DIALLO [facility]09-23-2021influenza nasal, unspecified formulationANATOLY Bartlett MD Work Phone: [facility] HospitalVikccr86-34-4839dxdttxydg virus vaccine, split virus (incl. purified surface antigen)Nico Lino Other [employer] Other 09-710414-04-6566touxkcmcr virus vaccine, unspecified formulationJEDENNY DIALLO [facility]09-23-2021Seasonal trivalent influenza vaccine, adjuvanted, preservative freeANATOLY Bartlett MD Work Phone: [facility] HospitalPqkltt66-06-6716DVIZK-37 vaccine, full dose (MODERNA)ANATOLY Bartlett MD Work Phone: [facility] HospitalWhaeki91-57-5990BMNND-16 vaccine, full dose (MODERNA)ANATOLY Bartlett MD Work Phone: [facility] HospitalAnoyxm81-23-7386tacrknexe virus vaccine, split virus (incl. purified surface antigen)Nico Lino Other [employer] Other 10693460-84-9552ybalxvepa virus vaccine, unspecified formulationSamaritan North Health Center09-17-2019influenza nasal, unspecified formulationANATOLY Bartlett MD Work Phone: [facility] HospitalRqkcol87-65-9055zmcxuwmdn virus vaccine, unspecified formulationJEDENNY LANDRUM [facility]09-17-2019Seasonal trivalent influenza vaccine, adjuvanted, preservative Sharon Bartlett MD Work Phone: [facility] HospitalDqexee30-91-5399sorwqxveryfw Conjugate, unspecified formulation; Translations: [Need for prophylactic vaccination ag ainst Streptococcus pneumoniae (pneumococcus)]Nico Lino Other [employer] Other 01652060-51-7175irrbtbxwurzr polysaccharide vaccine, 23 valMeena Bartlett MD Work Phone: [facility] HospitalInvjsw42-74-0635birvvgzku virus vaccine, split virus (incl. purified surface antigen)Nico Lino Other [employer] Other 10915152-73-6797gygthqbhm virus vaccine, unspecified formulationSamaritan North Health Center10-07-2015pneumococcal conjugate vaccine, 13 valentBenseng Lino Other [facility] Payers DatePayer CategoryPayerPolicy [id number]-pay2024MedicaidAETNA MEDICARE ADVANTAGE [id number] 2023Medicare (Managed Care) AET[employer] MEDICARE Member Subscriber Plan / Payer (Effective 2022-Present) Name: Segun Johnson Relation to Subscriber: Self Name: Segun Johnson Payer ID: 1 (NAIC) Type: PPO Address: [address] [place] [id number] 64-28-0874MkdwnaqXED MMO TRADITIONAL [id number] 2020-Present [phone] [address] [place] [address] [id number] [id number] 2011MedicareMEDICARE MEDICARE A AND B [id number] 2011-Present [phone] [place] [address] [id number] [id number] [id number] [id number] 1960Self-[id number] [id number] 2.16840.1.408320.3.579.2.593 [id number] 2.16840.1.790980.3.57[id number] 2.16840.1.550115.3.579.[id number] 2.16840.1.807461.3.57[id number] 2..840.1.259407.3.57[id number] 2.840.1.024632.3.57[id number] 2.840.1.389695.3.57[id number] 2.840.1.303[id number] 2.840.1.966786.3.579.2.531 Social History DateTypeDetailFacilityStart: 03-03-2021 End: 51-67-4358Elbmedr smoking status NHISEx-smokerMercy Health Kings Mills Hospitaltart: 03-03-1957 End: 46-64-0129Hpfsddc of tobacco useCurrent smokerMercy Health Kings Mills Hospitaltart: 03-03-2021 End: 41-66-0300Wqboonycwd smoked current (pack per day) - Reported0.5Clevelmaria parham health ClinicStart: 03-03-2021 End: 03-92-8997Cmjrdnz use and exposureSmokeless tobacco non-userMercy Health Kings Mills Hospitaltart: 02-17-2022 End: 99-63-7847Ywursfs intakeCurrent drinker of alcohol (finding)[facility] Hospitaltart: 85-18-2969Xhysiuj SDOH Alcohol CommentSociallyCleveland Clinic Start: 72-19-4457Emx Assigned At BirthNot on fileWillowbrook ClinicStart: 07-06-2021 End: 49-03-3175Afxxoosh to SARS-CoV-2 (event)Not sureMercy Health Kings Mills Hospitaltart: 03-03-1957 End: 54-12-9726Oegenho of tobacco useCigarette SmokerMercy Health Kings Mills Hospitaltart: 08-18-2022 End: 10-43-3641Fgy Assigned At [facility] HospitalAdult Depression Screening Ubtutpsqzt2Rryoxzkcp ClinicStart: 47-52-3764Wne Assigned At [facility] Hospitaltart: 07-30-2024 End: 17-94-4314DvnUkva (finding)[facility] Health CenterTobacco smoking status NHISTobacco smoking consumption unknownOzarks Community Hospital Medical Equipment Procedure CodeEquipment CodeEquipment Original TextEquipment IdentifierDates PROSTATIC BRACHYTHERAPY Ronda Bartlett MD 07/07/21 Unknown OtherFDAStart: 01-19-8405RQDRIGBZT BRACHYTHERAPY Ronda Bartlett MD 07/07/21 Unknown Other FDAStart: 07-07-2021 Functional Status OsjkDptcewcgkvRaeuzkQkjufinn51-02-2554Fgrrlchybm StatusN/AExecutive [facility] of [facility] Clinical Notes 02-17-2022 to 06-17-2025 Note Date & IzyySyuqTmmdogcs52-90-7207 NoteHNO ID: [id number] Author: Ronda BARTLETT MD Service: ? Author Type: Physician Type: Progress Notes Filed: 06/24/2025 14:24 Note Text: ) C. 9/radiation Oncology - Follow Up Note PATIENT NAME: Segun Johnson PATIENT DIAGNOSIS: Prostate adenocarcinoma, initial PSA 11.5, biopsy [place] score 4 + 3 = 7 (grade [...] ASSESSMENT/PLAN: Prostate adenocarcinoma, initial PSA 11.5, biopsy [place] score 4 + 3 = 7 (grade [...] by: Ronda Bartlett MD cc: Nico Lino ([facility]) [facility] [place] [address] Portions of the above note extracted and edited from previous visit as well as active information included in the EMR.[facility]09-30-2025 Note HNO ID: [id number] Author: RAUDEL WADDELL RN Service: ? Author Type: Registered Nurse Type: Progress Notes Filed: 06/24/2025 14:24 Note Text: AUA= 5CSelect [facility] Evaluation note* Diagnosis Onset Date Resolution Status [...] June 23, 2025 2:29pmWeight lossacuteOctober 2024 2:29pm [facility] Work Phone: 1(803) 161-828407-30-2025 Evaluation note* Diagnosis Onset Date Resolution Status [...] 2:29pmProstate canceracuteOctober 2024 2:29pmWeight lossacuteOctober 2024 2:29pm [facility] Work Phone: 1(414) 803-803207-07-2025 Evaluation note* Diagnosis Onset Date Resolution Status [...] 1:26pmProstate canceracuteJuly 2024 1:26pmWeight lossacuteJuly 2024 1:26pm [facility] Work Phone: 1(396) 869-971307-07-2025 Evaluation note* Diagnosis Onset Date Resolution Status [...] 1:41pmProstate canceracuteSeptember 2024 1:41pmWeight lossacuteSeptember 2024 1:41pm [facility] Work Phone: 1(418) 547-279907-07-2025 Evaluation note* Diagnosis Onset Date Resolution Status [...] upper arm without complication noneactiveSeptember 2024 1:25pm [facility] Work Phone: 1(872) 202-689204-01-2025 Evaluation note* Diagnosis Cancer of prostate w/med recur risk (T2b-c or Asaf 7 or PSA 10-20) (HCC)- Primary Malignant neoplasm of prostate documented in this encounter [facility]03-25-2025 History of Present illness Narrative* Ronda [...] ASSESSMENT/PLAN: Prostate adenocarcinoma, 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 Clinically doing well. PSA with minimal change control specialist the last 3 to 4 months. Has risen over the last12 months still likely related to testosterone recovery after prior ADT. Recommend continued close observation. If continues to climb consider PSMA PET. Signed by: Ronda Bartlett MD cc: Nico Lino ([facility]) [address] [place] [address] Portions of the above note extracted and edited from previous visit as well as active information included in the EMR. * Angélica Acharya RN - 12/10/2024 2:38 PM EDT AUA 10 Angélica Acharya RN documented in this encounterGalion Hospital03-25-2025 NoteHNO ID: [id number] Author: Ronda BARTLETT MD Service: ? Author Type: Physician Type: Progress Notes Filed: 12/17/2024 10:57 Note Text: ) C. 9/radiation Oncology - Follow Up Note PATIENT NAME: Segun Johnson PATIENT DIAGNOSIS: Prostate adenocarcinoma, initial PSA 11.5, biopsy [place] score 4 + 3 = 7 (grade [...] Clinically doing well. PSA with minimal change control specialist the last 3 to 4 months. Has risen over the last 12 months still likely related to testosterone recovery after prior ADT. Recommend continued close observation. If continues to climb consider PSMA PET. Signed by: Ronda Bartlett MD cc: Nico Lino ([facility]) [address] [place] [address] Portions of the above note extracted and edited from previous visit as well as active information included in the EMR.[facility]03-25-2025 Note HNO ID: [id number] Author: ANGÉLICA ACHARYA RN Service: ? Author Type: Registered Nurse Type: Progress Notes Filed: 12/17/2024 10:57 Note Text: [facility]* Diagnosis Cancer of prostate w/med recur risk (T2b-c or Asaf 7 or PSA 10-20) (HCC)- Primary Malignant neoplasm of prostate documented in this encounter [facility]11-22-2024 NoteHNO ID: [id number] Author: Ronda BARTLETT MD Service: ? Author [...] by: Ronda Bartlett MD cc: Nico Lino ([facility]) [address] [place] [address] Dr. Storey Portions of the above note extracted and edited from previous visit as well as active information included in the EMR.[facility]11-22-2024 History of Present illness Narrative* Ronda [...] by: Ronda Bartlett MD cc: Nico Lino ([facility]) [facility] [place] [address] Dr. Storey Portions of the above note extracted and edited from previous visit as well as active information included in the EMR. [facility] Note* Raudel Waddell LPN - 08/09/2024 9:15 AM EST AUA= 8 [facility]11-22-2024 Nurse Note* Raudel Waddell LPN - 08/09/2024 9:15 AM EST AUA= 8 [facility] History of Present illness Narrative* Conchita [...] History: Diagnosis Date ASHD (arteriosclerotic heart disease) ([facility]) Cataract Diabetes mellitus with hyperglycemia ([facility]) Dry eyes Elevated cholesterol ([facility]) CATHY (generalized anxiety disorder) ([facility]) Hypertension ([facility]) Pernicious anemia Prostate cancer ([facility]) 2021 s/p Hormone tx, CTx, external beam [...] @ 2:06 PM Additional Tests Keratometry K1 Sylva K2 Sylva Right 45.5 151 46.5 61 Left 45.75 [...] Normal Normal Refraction Wearing Rx Sphere Cylinder Sylva Add Right -4.75 +0.00 180 +2.50 Left -5.75 -0.50 055 +2.50 Manifest Refraction Sphere Cylinder Sylva Right -4.25 -1.25 110 Left -6.00 -1.00 055 Final Rx Sphere Cylinder Sylva Dist [place] Right -4.25 -0.75 110 20/40 [...] different lens options were explained including the jrj-ra-gdqmxe fees for any upgrades. Intraocular lens (IOL) [...] and OD - 06/24. [id number] Evaluation note* Diagnosis Cancer of prostate w/med recur risk (T2b-c or [place] 7 or PSA 10-20) (HCC)- Primary Malignant neoplasm of prostate documented in this encounter [facility]05-30-2024 History of Present illness Narrative* Ronda Bartlett MD - 02/15/2024 10:00 AM EDT Radiation Oncology - Follow Up Note PATIENT NAME: Segun Johnson PATIENT DIAGNOSIS: Prostate adenocarcinoma, initial PSA 11.5, biopsy [place] score 4 + 3 = 7 (grade [...] Ronda Bartlett MD cc: Nico Lino ([facility]ikhail) [address] [place] [address] Dr. Storey Portions of the above note extracted and edited from previous visit as well as active information included in the EMR. [facility] encounter[facility]05-30-[facility] Nurse Note* Venus Vasques MA - 02/15/2024 9:47 AM EDT AUA=9 [facility]04-01-2024 Nurse Note* Venus Vasques MA - 02/15/2024 9:47 AM EDT AUA=9 [facility] History of Present illness Narrative* Ronda [...] by: Ronda Bartlett MD cc: Nico Lino ([facility]) [address] [place] [address] Dr. Storey Portions of the above note extracted and edited from previous visit as well as active information included in the EMR. [facility]11-30-[facility] Nurse Note* Angélica Acharya RN - 08/17/2023 10:07 AM EST AUA 7 Angélica Acharya RN documented [facility]11-[facility] Evaluation note* Encounter Date Diagnosis Assessment [...] anemia (ICD-10 - D51.0)Continue supplement, recheck CBC [facility] Other 07-18-2023 Evaluation note* Encounter Date Diagnosis Assessment Notes Treatment Notes Treatment Clinical Notes Mar, Type 2 diabetes gio itus with hyperglycemia, without long-term current use of insulin (ICD-10 - E11.65) [facility] Other 03-14-2023 Evaluation note* Encounter Date Diagnosis [...] treatment Nov,ernicious anemia (ICD-10 - D51.0)B12 monthly [facility] Other 02-14-2023 Hospital Discharge instructions Patient Education [...] urethra. Follow these instructions at home: Take vmsj-hys-cjxdqof and prescription medicines only as told by [...] 09/04/2006 Document Revised: 07/30/2019 Document Reviewed: 10/09/2017 [employer] Patient Education 2020 [employer] Follow Up Care 05/03/2022 11:28:51 With:HENRIQUE LANDRUM PA-C, URL Address: [address] [place] [address] When:Within 18 Month(s) Comments:PSA [facility] 12-01-2022 History of Present illness Narrative* Irlanda Castor APRN.CNP - 08/18/2022 2:26 PM EST Segun Johnson returns for follow-up. He was seen and examined by Dr. Bartlett today. He urinates every 2-3 hours. He has occasional dribbling of urine. He denies any problems with his bowel. Patient was given his treatment summary and survivorship care plan for prostate cancer. Irlanda Castro APRN.KEKE documented in [facility]12-[facility] History of Present illness Narrative* Ronda Bartltet MD - 08/18/2022 10:30 AM EST Radiation Oncology - Follow Up Note PATIENT NAME: Segun Johnson PATIENT DIAGNOSIS: Prostate adenocarcinoma, initial PSA 11.5, biopsy [place] score 4 + 3 = 7 (grade [...] Bartlett MD cc: Nico Lino (Sanjeev) [address] [place] [address] Dr. Storey Portions of the above note extracted and edited from previous visit as well as active information included in the EMR. documented in [facility] encounterGal[facility]12-[facility]-2022 Nurse Note* Angélica Acharya RN - 08/18/2022 10:30 AM EST AUA 14 Angélica Acharya RN documented [facility]06-[facility]22 History of Present illness Narrative* G Dimitry Bartlett MD - 02/17/2022 9:58 AM EDT Radiation Oncology - Follow Up Note PATIENT NAME: Segun Johnson PATIENT DIAGNOSIS: Prostate adenocarcinoma, initial PSA 11.5, biopsy [place] score 4 + 3 = 7 (grade [...] by: Ronda Bartlett MD cc: Nico Lino ([facility]) [address] [place] [address] Dr. Storey Portions of the above note extracted and edited from previous visit as well as active information included in the EMR. documented in [facility] encounter[facility]06-[facility]-2022 Nurse Note* Angélica Acharya RN - 02/17/2022 9:54 AM EDT AUA 10 Angélica Acharya RN documented in this encounterGalion HospitalEvaluation + Plan note Future Appointments Appointment Date:03/05/2024 11:00:00 AM Scheduled Provider:HENRIQUE LANDRUM PA-C Location:[facility] Appointment Type:URO Office Visit Diagnostic Tests Pending * PSA Total 2/14/23 [facility] evaluation note* Diagnosis Prostate cancer (HCC)- Primary Malignant neoplasm of prostate [facility]* Diagnosis Prostate cancer (HCC) Malignant neoplasm of prostate [facility]* Diagnosis Prostate cancer (HCC)- Primary Malignant neoplasm of prostate [facility] noteNo [employer] Other Evaluation note* Diagnosis Malignant neoplasm of prostate (HCC)- Primary Malignant neoplasm of prostate documented in this encounter [facility] note* Diagnosis Onset Date Resolution Status ASHD (arteriosclerotic heart disease) acuteChronic venous insufficiencyacuteDiabetes mellitus with hyperglycemiaacute Elevated cholesterolacutePrimary hypertensionacuteProstate canceracute [facility] Work Phone: Evaluation note* Diagnosis Age-related nuclear cataract of both eyes- Primary documented in this encounter [facility] HealthcareEvaluation note* Diagnosis Age-related nuclear cataract of both eyes [facility]* Diagnosis Onset Date Resolution Status Admit Date ASHD (arteriosclerotic heart disease) acuteNov2023 10:57amChronic venous insufficiencyacuteNov2023 10:57amDiabetes mellitus with hyperglycemiaacuteNov2023 10:57am Elevated cholesterolacuteNov2023 10:57amMedicare annual wellness visit, subsequentacuteJuly 30, 2024 10:57amPrimary hypertensionacute November 2023 10:57amProstate canceracuteNov2023 10:57am [facility] Work Phone: Evaluation note* Diagnosis Age-related nuclear cataract of both eyes- Primary documented in this encounter [facility] HealthcareEvaluation note* Diagnosis Onset Date Resolution Status Admit Date Low back pain radiating to right leg acuteMarch 2024 9:54amRight hip painacuteMarch 2024 9:54am [facility] Work Phone: Evaluation note* Diagnosis Onset Date Resolution Status Admit Date ASHD (arteriosclerotic heart disease) acuteJuly 2024 10:41amChronic kidney diseaseacuteJuly 2024 10:41am Chronic venous insufficiencyacuteJuly 2024 10:41amDiabetes mellitus with hyperglycemiaacuteJuly 2024 10:41amElevated cholesterolacuteJuly 2024 10:41amPernicious anemiaacuteJuly 2024 10:41amPrimary hypertensionacuteJuly 2024 10:41amProstate canceracuteJuly 2024 10:41amWeight lossacuteJuly 2024 10:41am [facility] Work Phone: [...] urinary tract symptomsSurgical HistoryTRANSRECTAL ULTRASOUND (TRUS) WITH [id number] HistoryLHC PTCA [id number] Hospitalization HistorySEE SURGICAL [facility] [employer] Other Hospital course Narrative No data available for this section [facility] Hospital Discharge instructions No data available for this section [facility] Hospital Discharge instructionsAdditional Instructions DISCHARGE INSTRUCTIONS FOR [...] Follow up with PCP. - Office number [phone].[facility] Work Phone: Progress note No data available for this section [facility] reason for referral (narrative)No reason for referral [...] May 192024 1:41pm Diabetes mellitus with hyperglycemia [facility] 2024 1:41pm Elevated cholesterol May 28 1:41pm [...] and content) DATE CREATED AUTHOR 04/06/2018 [facility] DATE CREATED AUTHOR AUTHOR'S ORGANIZ ATION 01/09/2023 [facility] DATE CREATED AUTHOR AUTHOR'S ORGANIZ ATION 03/07/2024 [facility] DATE CREATED AUTHOR AUTHOR'S ORGANIZ ATION 05/16/2024 [facility] DATE CREATED AUTHOR AUTHOR'S ORGANIZ ATION 06/27/2025 [facility] DATE CREATED AUTHOR AUTHOR'S ORGANIZ ATION 07/10/2025 [facility] Source Comments (unrecognize d section and content) In the event this informatio n is protected by the Federal Confidentiality of Alcohol and Drug Abuse Patient Records regulations: The Federal rules restrict any use of the information to criminally investigate or prosecute any alcohol or drug abuse patient.[facility] the event this information is protected by the Federal Confidentiality of Alcohol and Drug Abuse Patient Records regulations: The Federal rules restrict any use of the information to criminally investigate or prosecute any alcohol or drug abuse patient.[facility] the event this information is protected by the Federal Confidentiality of Alcohol and Drug Abuse Patient Records regulations: The Federal rules restrict any use of the information to criminally investigate or prosecute any alcohol or drug abuse patient.[facility] HospitalIn the event this information is protected by the Federal Confidentiality of Alcohol and Drug Abuse Patient Records regulations: The Federal rules restrict any use of the information to criminally investigate or prosecute any alcohol or drug abuse patient.[facility] HospitalIn the event this information is protected by the Federal Confidentiality of Alcohol and Drug Abuse Patient Records regulations: The Federal rules restrict any use of the information to criminally investigate or prosecute any alcohol or drug abuse patient.[facility] HospitalIn the event this information is protected by the Federal Confidentiality of Alcohol and Drug Abuse Patient Records regulations: The Federal rules restrict any use of the information to criminally investigate or prosecute any alcohol or drug abuse patient.[facility] HospitalIn the event this information is protected by the Federal Confidentiality of Alcohol and Drug Abuse Patient Records regulations: The Federal rules restrict any use of the information to criminally investigate or prosecute any alcohol or drug abuse patient.[facility] HospitalIn the event this information is protected by the Federal Confidentiality of Alcohol and Drug Abuse Patient Records regulations: The Federal rules restrict any use of the information to criminally investigate or prosecute any alcohol or drug abuse patient.[facility] Reason for Visit (unrecogniz ed section and content) ReasonCommentsProstate CancerReasonCommentsProstate CancerFollow upReasonOnset DateCommentsMed Qiuwwq9807/02/2024easonOnset DateCommentsMed Jevjco8407/03/2024 ReasonCommentsCataract Care Teams (unrecognized sec tion and [...] MemberRelationshipSpecialtyStart DateEnd Nico Rodriguez, DO [address] [place] [address] PCP - GeneralInternal Medicine02/10/21 Joseph Vasques Jr. [address] [place] [phone] Urology02/10/21Team MemberRelationshipSpecialtyStart DateEnd Nico Rodriguez, DO [address] [place] [address] PCP - GeneralInternal Medicine02/10/21 Joseph Vasques Jr. [address] [place] [address] Urology02/10/21Team MemberRelationshipSpecialtyStart DateEnd Date Nico Lino, DO [address] [place] [address] PCP - GeneralInternal Medicine02/10/21 Joseph Vasques Jr. [address] [place] [address] Urology02/10/21Team MemberRelationshipSpecialtyStart DateEnd Nico Rodriguez DO [address] [place] [address] PCP - GeneralInternal Medicine02/10/21 Joseph Vasques Jr. [address] [place] [address] Urology02/10/21Team MemberRelationshipSpecialtyStart DateEnd Date Nico Lino DO [address] [place] [address] PCP - GeneralInternal Medicine02/10/21 Joseph Vasques Jr. [address] [place] [place] [phone] Urology02/10/21 Team Status: Active Member Role Status Dates Nico Lino DO Primary Care Provider Active Start: February 14, 2024 Ketan Bartlett [facility] ProviderActiveStart: February 14, 2024 Team Status: Active Member Role Status Dates Nico Lino DO Primary Care Provide r, Attending Provider Active Start: March 26, 2024 Team Status: Inactive Member Role Status Dates Nico Lino DO Primary Care Provide r, Attending Provider Active Start: March 27, 2024 End: March 27, 2024Team MemberRelationshipSpecialtyStart DateEnd Date Nico Lino DO [address] [place] [address] PCP - GeneralInternal Medicine02/10/21 Joseph Vasques Jr. [address] [place] [address] Urology02/10/21Team MemberRelationshipSpecialtyStart DateEnd Date Nico Lino MD [address] [place] [address] PCP - GeneralInternal Medicine05/14/24Team MemberRelationshipSpecialtyStart Date End Date Nico Lino MD [address] [place] [address] [facility] Team Status: Active Member Role Status Dates Nico Lino DO Primary Care Provide r, Attending Provider Active Start: July 24, 2024 Team Status: Inactive Member Role Status Dates Nico Lino DO Primary Care Provide r, Attending Provider Active Start: July 30, 2024 End: July 30, 2024Team MemberRelationshipSpecialtyStart DateEnd Date Nico Lino DO [address] [place] [address] PCP - GeneralInternal Medicine02/10/21 Joseph Vasques Jr. [address] [place] [address] Urology02/10/21Team MemberRelationshipSpecialtyStart DateEnd Date Nico Lino MD [address] [place] [address] [facility] Team Status: Active Member Role/Relationship Status [...] BE BASED ON THE PRIMARY CLINICAL RECORDS. [facility] [employer] [facility]. provides no warranty or guarantee of the accuracy or completeness of information in this document.
[2025-08-18 14:59] LABS: Alanine Aminotransferase 37 U/L (16-63); Albumin Globulin Ratio 0.7; Albumin Level 3.4 g/dL (3.4-5.0); Alkaline Phosphatase 103 U/L (46-116); Anion Gap 16.4; Aspartate Amino Transferase 27 U/L (15-37); Blood Urea Nitrogen 38.0 mg/dL (7.0-18.0); Calcium 9.4 mg/dL (8.5-10.1); Carbon Dioxide 22.8 mmol/L (21.0-32.0); Chloride 105 mmol/L (98-107); Estimated GFR (African America 34 (>=60 mL/min/1.73m^2); Estimated GFR (Non-African Ame 28 (>=60 mL/min/1.73m^2); Globulin 4.6 g/dL; Glucose 158 mg/dL (74-106); Potassium 4.2 mmol/L (3.5-5.1); Sodium 140 mmol/L (136-145); TSH W/ REFLEX FT4 4.427 uIU/mL (0.358-3.740); Total Protein 8.0 g/dL (6.4-8.2)
[2025-08-18 15:43] LABS: Ferritin 142.0 ng/mL (26.0-388.0); Folate 27.90 ng/mL (8.60-58.90)
[2025-08-19 03:07] LABS: Vitamin B12 >2000 pg/mL (232-1245)
== END 2025-08-18 14:04 | disposition home or self-care (01) ==
PROVIDERS: PCP Internal Medicine; Visit Provider Internal Medicine
DX: C61 Malignant neoplasm of prostate (principal); R53.83 Other fatigue; N18.32 Chronic kidney disease, stage 3b; E11.65 Type 2 diabetes mellitus with hyperglycemia; D64.9 Anemia, unspecified; I12.9 Hypertensive chronic kidney disease with stage 1 through stage 4 chronic kidney disease, or unspecified chronic kidney disease
CPT/HCPCS: 36415; 80053; 82607; 82728; 82746; 84153; 84439; 84443; 85025